=== PATIENT | female | born 2000 | race Caucasian/White ===

== ENCOUNTER → 2021-02-09 08:57 | Outpatient (CLI) | payer SELFPAY | PROVIDERS: Visit Provider Nurse Practitioner Obstetrics & Gynecology | DX: O20.9 Hemorrhage in early pregnancy, unspecified (principal); Z32.00 Encounter for pregnancy test, result unknown | CPT/HCPCS: 36415; 84702 ==

== ENCOUNTER → 2021-02-11 08:09 | Outpatient (CLI) | payer SELFPAY | PROVIDERS: Visit Provider Nurse Practitioner Obstetrics & Gynecology | DX: N92.6 Irregular menstruation, unspecified (principal) | CPT/HCPCS: 36415; 84702 ==

== ENCOUNTER → 2021-02-17 14:04 | Outpatient (CLI) | payer OTHER, SELFPAY ==
--- NOTE | 2021-02-17 14:04 | US_ITS ---
PROCEDURE: US OB <= 14 WEEKS FETUS CLINICAL INDICATION: US OB before 14 wks for DATES COMPARISON: No exams were available for comparison FINDINGS: An intrauterine gestational sac is present with a pole with a crown-rump length of 1.64cm correlating to gestational age of 8weeks 1day. heart tones are present with an FHR of 176bpm. Yolk sac is noted. IMPRESSION: Live IUP at 8 weeks 1 day Estimated due date by Ultrasound is 09/28/2021 Dictated by: Huseyin Penaloza MD 02/17/2021 18:29 Huseyin Penaloza MD in OV 02/17/2021 18:29
== END ==
PROVIDERS: PCP Family Medicine; Visit Provider Nurse Practitioner Obstetrics & Gynecology
DX: O26.841 Uterine size-date discrepancy, first trimester (principal)
CPT/HCPCS: 76801

== ENCOUNTER → 2021-03-10 11:44 | Outpatient (CLI) | payer OTHER, SELFPAY ==
[2021-03-10 12:24] LABS: Basophils % 0.3 % (0.1-2.0); Eosinophils # 0.1 K/mm3 (0.0-0.4); Eosinophils % 0.5 % (0.1-12.0); Hematocrit 35.5 % (37.0-47.0); Hemoglobin 12.1 g/dL (12.2-16.2); Lymphocytes # 2.2 K/mm3 (0.7-4.5); Lymphocytes % 20.4 % (10-50); Mean Corpuscular HGB Conc 34.1 g/dL (31.8-35.4); Mean Corpuscular Hemoglobin 29.6 pg (27.0-31.2); Mean Corpuscular Volume 86.9 fl (81-99); Mean Platelet Volume 8.4 fl (7.4-10.4); Monocytes # 0.3 K/mm3 (0.1-1.0); Neutrophils # 8.1 K/mm3 (1.8-7.8); Neutrophils % 75.8 % (37.0-80.0); Platelet Count 318 K/mm3 (142-424); Red Blood Count 4.08 M/mm3 (4.20-5.40); Red Cell Distribution Width 13.7 % (11.5-17.5); White Blood Count 10.7 K/mm3 (4.8-10.8)
[2021-03-11 08:06] LABS: HIV Screen 4th Generation wRfx Non Reactive (Non Reactive); HSV 1 IgG, Type Spec <0.91 index (0.00-0.90); HSV 2 IgG, Type Spec <0.91 index (0.00-0.90); Rubella Antibodies, IgG 1.96 index (Immune >0.99)
[2021-03-11 10:57] LABS: Rapid Plasma Reagin Ab Titer Non Reactive (NonRea<1:1)
[2021-03-11 11:42] LABS: Hepatitis B Surface Antigen Negative (Negative); Hepatitis C Antibody <0.1 s/co ratio (0.0-0.9)
== END ==
PROVIDERS: Visit Provider Nurse Practitioner Obstetrics & Gynecology
DX: Z34.90 Encounter for supervision of normal pregnancy, unspecified, unspecified trimester (principal)
CPT/HCPCS: 36415; 85025; 86592; 86695; 86703; 86762; 86790; 86850; 87340; 87380; G0432

== ENCOUNTER → 2021-03-26 11:05 | Outpatient (CLI) | payer OTHER, SELFPAY | PROVIDERS: Visit Provider Nurse Practitioner Obstetrics & Gynecology | DX: Z31.430 Encounter of female for testing for genetic disease carrier status for procreative management (principal); Z36.0 Encounter for antenatal screening for chromosomal anomalies; O28.3 Abnormal ultrasonic finding on antenatal screening of mother | CPT/HCPCS: 36415 ==

== ENCOUNTER → 2021-04-30 10:11 | Outpatient (CLI) | payer OTHER, SELFPAY ==
--- NOTE | 2021-04-30 10:11 | US_ITS ---
FINAL REPORT CLINICAL HISTORY: US OB COMPLETE 20 wk+ Anatomy Scan FINDINGS: ULTRASOUND PELVIS/2ND TRIMESTER HISTORY: TECHNIQUE: Sonographic images of the gravid uterus were obtained. FINDINGS: Single intrauterine is present. Cardiac activity is confirmed. No anomalies are seen. Appropriate amount of amniotic fluid is present. Placenta is anterior. Growth parameters are as follows: BPD: 18 weeks 4 days Head circumference: 18 weeks 1 days Abdominal circumference: 18 weeks 3 days Femur length: 19 weeks 3 days heart rate: 147 bpm weight: 255 g Estimated gestational age: 18 weeks 4 days IMPRESSION: Single living intrauterine with estimated gestational age of 18 weeks 4 days. Reviewed, Interpreted and Dictated by Nick Valentin III, MD Transcribed by Flor Brown Authenticated by Nick Valentin III, MD on 04/30/2021 01:12:27 PM [facility]
== END ==
PROVIDERS: PCP Family Medicine; Visit Provider Nurse Practitioner Obstetrics & Gynecology
DX: Z36.0 Encounter for antenatal screening for chromosomal anomalies (principal)
CPT/HCPCS: 76811

== ENCOUNTER 2021-05-12 09:42 | Emergency (ER) | payer OTHER, SELFPAY ==
--- NOTE | 2021-05-12 09:47 | HMH.EDGENADL ---
ED Disposition Clinical Impression: Viral illness Asthmatic bronchitis Qualifiers: Asthma severity: mild Asthma persistence: intermittent Asthma complication type: with acute exacerbation Qualified Code(s): J45.21 - Mild intermittent asthma with (acute) exacerbation Disposition: Home, Self-Care Condition on Discharge: Good Instructions: DI for Acute Bronchitis, DI for Viral Upper Respiratory Infection -- Adult Additional Instructions: follow up pcp as needed Prescriptions: predniSONE [Prednisone 20mg Tab] 60 mg PO DAILY 3 Days #3 tab Transmission Status: Pending to [facility] Albuterol Sulfate [Proair Hfa] 2 puff IH Q4-6H PRN 10 Days #1 each PRN Reason: Wheezing Transmission Status: Pending to [facility] Referrals: Loan Vick [Primary Care Provider] - - Critical Care Critical Care Time: No Attestation: On , the high probability of a clinically significant, sudden or life threatening deterioration of the following system(s) required my full and direct attention, intervention and personal management. The time I documented below is in addition to time spent performing reported procedures but includes the following listed in this critical care notation. Medical Decision Making - Medical Records Medical records reviewed: Yes: I reviewed the patient's medical records. 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, 3 days, neg covid/flu yest, no fever, h/o asthma, 21 wks preg asymptomatic Radiation: non-radiation Severity: mild Consistency: constant Relieving factors: none Exacerbating factors: none Associated symptoms: denies other symptoms - Related Data Home Medications Medication Instructions Recorded Confirmed difluprednate 0.05 % eye drops ml OPHTHALMIC 02/12/21 04/30/21 lifitegrast 5 % eye drops in a 1 drp OPHTHALMIC BID 02/12/21 04/30/21 dropperette prenat.vits,beverly,pmz-mafi-klttb 1 tab PO DAILY 02/12/21 04/30/21 Previous Rx's Medication Instructions Recorded promethazine 12.5 mg tablet 12.5 mg PO Q4-6H PRN #30 tab 04/02/21 Albuterol Sulfate [Proair Hfa] 2 puff IH Q4-6H PRN 10 Days #1 each 05/12/21 predniSONE [Prednisone 20mg 60 mg PO DAILY 3 Days #3 tab 05/12/21 Tab] Allergies Allergy/AdvReac Type Severity Reaction Status Date / Time No Known Allergies Allergy Verified 04/30/21 09:[address] [facility] History - Hepatitis A Screen Attestation statement:: This patient has been screened for Hepatitis A risk factors. Other Medical History: Reports: Cataracts Other Surgeries: Yes: Other Amputation: No Fractures: No Comment: Cornea transplant, cataract surgery - Social History Smoking Status: Never smoker Alcohol Intake: never Alcohol Intake Frequency:: other Substance Use Type: denies use Occupational Status: other Family Hx:: No significant family history ROS Obtained: Yes All systems reviewed & no additional complaints Physical Exam - General General appearance: alert, in no apparent distress - Head Head exam: atraumatic, normocephalic - Eye Eye exam: Present: normal appearance, PERRL, EOMI - ENT ENT exam: Present: normal exam, normal oropharynx, mucous membranes moist - Neck Neck exam: Present: normal inspection, full ROM, trachea midline - Chest Chest inspection: Present: normal inspection, symmetric chest wall rise. Absent: tenderness - Respiratory Respiratory exam: Present: wheezes, other (mild decreased ranjith with faint scattered wheeze, no rhonchi). Absent: respiratory distress, accessory muscle use - Cardiovascular Cardiovascular exam: Present: regular rate, normal rhythm. Absent: bradycardia - Neurologica
[2021-05-12 09:53] VITALS: BP 132/70; PULSE 109; RESP 16; TEMP 37; O2SAT 96; BMI 37.4
[2021-05-12 10:17] VITALS: BP 128/81; PULSE 64; RESP 16; TEMP 37; O2SAT 98
== END 2021-05-12 10:18 | disposition home or self-care (01) ==
PROVIDERS: Emergency Provider Emergency Medicine; PCP Family Medicine
DX: B34.9 Viral infection, unspecified (principal); J45.21 Mild intermittent asthma with (acute) exacerbation; Z3A.21 21 weeks gestation of pregnancy
CPT/HCPCS: 99281

== ENCOUNTER 2021-05-18 18:38 | Outpatient (CLI) | payer OTHER, SELFPAY ==
[2021-05-18 19:23] VITALS: BMI 37.2
[2021-05-18 19:36] LABS: Microscopic, Urine URINE MICROSCOPIC (MICROSCOPIC)
[2021-05-18 19:42] VITALS: BP 132/69; PULSE 85; RESP 19; TEMP 36.6; O2SAT 98; BMI 37.2
[2021-05-18 19:46] LABS: Appearance,Urine SL CLOUDY (Clear); Bilirubin,Urine Negative (Negative); Blood, Urine TRACE-I (Negative); Color,Urine YELLOW (Yellow); Glucose,Urine (UA) Negative (Negative); Ketones,Urine Negative (Negative); Leukocyte Esterase,Urine 1+ (Negative); Nitrate,Urine Negative (Negative); Protein,Urine Negative (Negative); Specific Gravity, Urine 1.015 (1.005-1.030); Urobilinogen,Urine 0.2 EU/dl (0.2)
[2021-05-18 19:56] LABS: Bacteria,Urine 1+ /lpf
[2021-05-18 19:57] LABS: Amphetamine/Metha Screen,Urine Negative ng/ml (<1000)
[2021-05-18 19:58] LABS: Barbiturates Screen,Urine Negative ng/ml (<200)
[2021-05-18 19:59] LABS: Benzodiazepines Screen,Urine Negative ng/ml (<200); Cannabinoid Screen,Urine Negative ng/ml (<50)
[2021-05-18 20:00] LABS: Cocaine Screen,Urine Negative ng/ml (<300)
[2021-05-18 20:00] LABS: Fetal Membrane Rupture (Rapid) Negative (Negative)
[2021-05-18 20:01] LABS: Methadone Screen,Urine Negative ng/ml (<300); Opiate Screen,Urine Negative ng/ml (<300)
[2021-05-18 20:02] LABS: Phencyclidine Screen,Urine Negative ng/ml (<25)
== END 2021-05-18 20:15 | disposition hospice, home (50) ==
LOC: OBOUT 18:40 → OB 18:42
PROVIDERS: PCP Family Medicine; Visit Provider Nurse Practitioner Obstetrics & Gynecology
DX: O26.892 Other specified pregnancy related conditions, second trimester (principal); Z3A.21 21 weeks gestation of pregnancy
CPT/HCPCS: 80305; 81001; 84112; 87086; G0463

== ENCOUNTER → 2021-05-19 13:13 | Outpatient (CLI) | payer OTHER, SELFPAY ==
--- NOTE | 2021-05-19 13:29 | US_ITS ---
FINAL REPORT CLINICAL HISTORY: Spotting in 2nd Trimester, check cervix-- limited recent anatomy FINDINGS: US PREG LIMITED Limited sonographic images of the pelvis were obtained. Single living intrauterine . Cephalic position. Heart rate identified at 158 beats per minute. The placenta is anterior. There is normal amniotic fluid. There is no evidence of placenta previa. The fetus is active. Visualized anatomy is within normal limits. IMPRESSION: Single living intrauterine . Reviewed, Interpreted and Dictated by Nick Valentin III, MD Transcribed by Darline Schwab Authenticated by Nick Valentin III, MD on 05/19/2021 04:59:13 PM [facility]
--- NOTE | 2021-05-19 13:29 | US_ITS ---
FINAL REPORT CLINICAL HISTORY: Spotting in 2nd Trimester, check cervix FINDINGS: US TRANSVAGINAL Limited transvaginal sonographic images of the pelvis were obtained. The cervix measures 3.5 cm in length and appears normal. There is a intrauterine with a cephalic presentation. IMPRESSION: Normal cervix. Reviewed, Interpreted and Dictated by Nick Valentin III, MD Transcribed by Darline Schwab Authenticated by Nick Valentin III, MD on 05/19/2021 03:46:13 PM [facility]
== END ==
PROVIDERS: PCP Family Medicine; Visit Provider Nurse Practitioner Obstetrics & Gynecology
DX: O26.852 Spotting complicating pregnancy, second trimester (principal); Z03.75 Encounter for suspected cervical shortening ruled out
CPT/HCPCS: 76815; 76817

== ENCOUNTER → 2021-06-20 08:42 | Outpatient (CLI) | payer OTHER, SELFPAY ==
[2021-06-20 09:11] LABS: Glucose,Fasting 82 mg/dl (74-100)
[2021-06-20 10:32] LABS: Glucose 1 Hour 104 mg/dL (74-100)
== END ==
PROVIDERS: PCP Family Medicine; Visit Provider Nurse Practitioner Obstetrics & Gynecology
DX: Z34.90 Encounter for supervision of normal pregnancy, unspecified, unspecified trimester (principal); Z3A.22 22 weeks gestation of pregnancy
CPT/HCPCS: 36415; 82951

== ENCOUNTER 2021-06-26 11:21 | Outpatient (CLI) | payer OTHER, SELFPAY ==
[2021-06-26 11:31] VITALS: BMI 38.1
[2021-06-26 11:36] VITALS: BP 106/58; PULSE 85; RESP 18; TEMP 37; O2SAT 98
[2021-06-26 11:44] VITALS: BP 106/58; PULSE 85; RESP 18; TEMP 37; O2SAT 98; BMI 38.1
[2021-06-26 11:52] LABS: Microscopic, Urine URINE MICROSCOPIC (MICROSCOPIC)
[2021-06-26 11:57] LABS: Appearance,Urine CLEAR (Clear); Bilirubin,Urine Negative (Negative); Blood, Urine Negative (Negative); Color,Urine YELLOW (Yellow); Glucose,Urine (UA) Negative (Negative); Ketones,Urine Negative (Negative); Leukocyte Esterase,Urine 1+ (Negative); Nitrate,Urine Negative (Negative); Protein,Urine Negative (Negative); Urobilinogen,Urine 0.2 EU/dl (0.2)
[2021-06-26 12:15] LABS: Amphetamine/Metha Screen,Urine Negative ng/ml (<1000); Benzodiazepines Screen,Urine Negative ng/ml (<200)
[2021-06-26 12:16] LABS: Barbiturates Screen,Urine Negative ng/ml (<200)
[2021-06-26 12:17] LABS: Cannabinoid Screen,Urine Negative ng/ml (<50); Cocaine Screen,Urine Negative ng/ml (<300)
[2021-06-26 12:18] LABS: Methadone Screen,Urine Negative ng/ml (<300); Opiate Screen,Urine Negative ng/ml (<300)
[2021-06-26 12:19] LABS: Phencyclidine Screen,Urine Negative ng/ml (<25)
[2021-06-26 12:31] LABS: Amorphous Sediment,Urine 1+ /lpf; Squamous Epithelial Cell,Urine Occasional #/hpf (0-5)
== END 2021-06-26 12:21 | disposition home or self-care (01) ==
LOC: OBOUT 11:23 → OB 11:23
PROVIDERS: PCP Family Medicine; Visit Provider Obstetrics & Gynecology
DX: O26.892 Other specified pregnancy related conditions, second trimester (principal); Z3A.26 26 weeks gestation of pregnancy; R10.31 Right lower quadrant pain
CPT/HCPCS: 59025; 80305; 81001; 87086; G0463

== ENCOUNTER 2021-07-26 21:42 | Outpatient (CLI) | payer OTHER, SELFPAY ==
[2021-07-26 21:57] VITALS: BMI 39.3
[2021-07-26 22:10] LABS: Microscopic, Urine URINE MICROSCOPIC (MICROSCOPIC)
[2021-07-26 22:12] LABS: Appearance,Urine CLOUDY (Clear); Bilirubin,Urine Negative (Negative); Blood, Urine 1+ (Negative); Color,Urine YELLOW (Yellow); Glucose,Urine (UA) Negative (Negative); Ketones,Urine Negative (Negative); Leukocyte Esterase,Urine 1+ (Negative); Nitrate,Urine Negative (Negative); Protein,Urine Negative (Negative); Urobilinogen,Urine 0.2 EU/dl (0.2)
[2021-07-26 22:15] LABS: Amorphous Sediment,Urine 3+ /lpf; Mucus,Urine 1+ /lpf; Squamous Epithelial Cell,Urine 20-50 #/hpf (0-5)
[2021-07-26 22:23] LABS: Barbiturates Screen,Urine Negative ng/ml (<200); Benzodiazepines Screen,Urine Negative ng/ml (<200)
[2021-07-26 22:24] LABS: Amphetamine/Metha Screen,Urine Negative ng/ml (<1000)
[2021-07-26 22:25] LABS: Cannabinoid Screen,Urine Negative ng/ml (<50); Cocaine Screen,Urine Negative ng/ml (<300)
[2021-07-26 22:26] LABS: Methadone Screen,Urine Negative ng/ml (<300)
[2021-07-26 22:27] LABS: Opiate Screen,Urine Negative ng/ml (<300); Phencyclidine Screen,Urine Negative ng/ml (<25)
[2021-07-26 23:23] VITALS: BP 98/54; PULSE 90; RESP 18; TEMP 36.8; O2SAT 97; BMI 39.2
== END 2021-07-27 00:25 | disposition home or self-care (01) ==
LOC: OBOUT 21:43 → OB 21:43
PROVIDERS: PCP Family Medicine; Visit Provider Obstetrics & Gynecology
DX: O47.03 False labor before 37 completed weeks of gestation, third trimester (principal); Z3A.30 30 weeks gestation of pregnancy
CPT/HCPCS: 59025; 80305; 81001; 87086; 96365; 96372; G0463

== ENCOUNTER 2021-07-28 17:17 | Outpatient (CLI) | payer OTHER, SELFPAY ==
[2021-07-28 17:58] VITALS: BP 129/79; PULSE 91; RESP 20; TEMP 36.9; O2SAT 100; BMI 38.9
[2021-07-28 18:13] LABS: Microscopic, Urine URINE MICROSCOPIC (MICROSCOPIC)
[2021-07-28 18:30] LABS: Appearance,Urine CLEAR (Clear); Bilirubin,Urine Negative (Negative); Blood, Urine 2+ (Negative); Color,Urine YELLOW (Yellow); Glucose,Urine (UA) Negative (Negative); Ketones,Urine TRACE (Negative); Leukocyte Esterase,Urine 1+ (Negative); Nitrate,Urine Negative (Negative); PH,Urine 6.5 (5.0-8.5); Protein,Urine TRACE (Negative); Specific Gravity, Urine 1.025 (1.005-1.030); Urobilinogen,Urine 0.2 EU/dl (0.2)
[2021-07-28 18:31] LABS: Bacteria,Urine Trace /lpf
[2021-07-28 19:14] LABS: Fetal Fibronectin (Rapid) Negative (Negative)
[2021-07-28 21:09] LABS: Amphetamine/Metha Screen,Urine Negative ng/ml (<1000)
[2021-07-28 21:10] LABS: Barbiturates Screen,Urine Negative ng/ml (<200); Benzodiazepines Screen,Urine Negative ng/ml (<200)
[2021-07-28 21:11] LABS: Cannabinoid Screen,Urine Negative ng/ml (<50)
[2021-07-28 21:12] LABS: Cocaine Screen,Urine Negative ng/ml (<300); Methadone Screen,Urine Negative ng/ml (<300)
[2021-07-28 21:13] LABS: Opiate Screen,Urine Negative ng/ml (<300)
[2021-07-28 21:14] LABS: Phencyclidine Screen,Urine Negative ng/ml (<25)
== END 2021-07-28 20:21 | disposition home or self-care (01) ==
LOC: OBOUT 17:20 → OB 17:24
PROVIDERS: PCP Nurse Practitioner Obstetrics & Gynecology; Visit Provider Nurse Practitioner Obstetrics & Gynecology
DX: O47.03 False labor before 37 completed weeks of gestation, third trimester (principal); Z3A.31 31 weeks gestation of pregnancy
CPT/HCPCS: 59025; 80305; 81001; 82731; 87086; 96365; 96372; G0463

== ENCOUNTER 2021-07-29 11:55 | Outpatient (CLI) | payer OTHER, SELFPAY ==
[2021-07-29 12:05] VITALS: BMI 41.5
[2021-07-29 12:27] VITALS: BP 120/68; PULSE 99; RESP 20; TEMP 37.1; O2SAT 95; BMI 38.9
[2021-07-29 12:47] LABS: Benzodiazepines Screen,Urine Negative ng/ml (<200)
[2021-07-29 12:48] LABS: Amphetamine/Metha Screen,Urine Negative ng/ml (<1000); Barbiturates Screen,Urine Negative ng/ml (<200)
[2021-07-29 12:49] LABS: Cannabinoid Screen,Urine Negative ng/ml (<50)
[2021-07-29 12:50] LABS: Cocaine Screen,Urine Negative ng/ml (<300); Methadone Screen,Urine Negative ng/ml (<300)
[2021-07-29 12:51] LABS: Opiate Screen,Urine Negative ng/ml (<300)
[2021-07-29 12:52] LABS: Phencyclidine Screen,Urine Negative ng/ml (<25)
== END 2021-07-29 15:10 | disposition home or self-care (01) ==
LOC: OBOUT 11:57 → OB 11:59
PROVIDERS: PCP Family Medicine; Visit Provider Nurse Practitioner Obstetrics & Gynecology
DX: O47.03 False labor before 37 completed weeks of gestation, third trimester (principal); Z3A.31 31 weeks gestation of pregnancy
CPT/HCPCS: 59025; 80305; 96365; 96372; G0463

== ENCOUNTER 2021-08-02 23:56 | Observation (INO) | payer OTHER, SELFPAY ==
[2021-08-02 21:49] VITALS: BMI 45.7
[2021-08-02 22:05] VITALS: BP 120/65; PULSE 87; RESP 18; TEMP 37.1; O2SAT 98; BMI 38.9
[2021-08-02 22:32] LABS: Microscopic, Urine URINE MICROSCOPIC (MICROSCOPIC)
[2021-08-02 22:44] LABS: Appearance,Urine SL CLOUDY (Clear); Bilirubin,Urine Negative (Negative); Blood, Urine 1+ (Negative); Color,Urine YELLOW (Yellow); Glucose,Urine (UA) Negative (Negative); Ketones,Urine Negative (Negative); Leukocyte Esterase,Urine 2+ (Negative); Nitrate,Urine Negative (Negative); Protein,Urine Negative (Negative); Urobilinogen,Urine 0.2 EU/dl (0.2)
[2021-08-02 22:48] LABS: Amorphous Sediment,Urine 1+ /lpf; WBC,Urine 20-50 #/hpf (0-3)
[2021-08-02 22:54] LABS: Barbiturates Screen,Urine Negative ng/ml (<200)
[2021-08-02 22:55] LABS: Amphetamine/Metha Screen,Urine Negative ng/ml (<1000); Benzodiazepines Screen,Urine Negative ng/ml (<200)
[2021-08-02 22:56] LABS: Cannabinoid Screen,Urine Negative ng/ml (<50)
[2021-08-02 22:57] LABS: Cocaine Screen,Urine Negative ng/ml (<300); Methadone Screen,Urine Negative ng/ml (<300)
[2021-08-02 22:58] LABS: Opiate Screen,Urine Negative ng/ml (<300)
[2021-08-02 22:59] LABS: Phencyclidine Screen,Urine Negative ng/ml (<25)
[2021-08-03 01:06] LABS: Coronavirus 19, PCR Not Detected (NotDetected); Influenza A, PCR Not Detected (NotDetected); Influenza B, PCR Not Detected (NotDetected)
[2021-08-03 01:18] LABS: Basophils # 0.3 K/mm3 (0-0.2); Basophils % 1.9 % (0.1-2.0); Eosinophils # 0.1 K/mm3 (0.0-0.4); Eosinophils % 0.8 % (0.1-12.0); Lymphocytes # 3.4 K/mm3 (0.7-4.5); Lymphocytes % 20.5 % (10-50); Mean Corpuscular HGB Conc 33.5 g/dL (31.8-35.4); Mean Corpuscular Hemoglobin 29.7 pg (27.0-31.2); Mean Corpuscular Volume 88.6 fl (81-99); Mean Platelet Volume 9.6 fl (7.4-10.4); Monocytes # 0.8 K/mm3 (0.1-1.0); Monocytes % 4.8 % (1.7-9.3); Neutrophils # 11.8 K/mm3 (1.8-7.8); Neutrophils % 71.9 % (37.0-80.0); Platelet Count 278 K/mm3 (142-424); Red Blood Count 3.38 M/mm3 (4.20-5.40); Red Cell Distribution Width 14.2 % (11.5-17.5); White Blood Count 16.4 K/mm3 (4.8-10.8)
[2021-08-03 01:20] LABS: Anion Gap 10.6 mEq/L (5-15); Blood Urea Nitrogen 11 mg/dl (7-17); Calcium 8.4 mg/dl (8.4-10.2); Carbon Dioxide 22 mmol/L (22.0-30.0); Chloride 106 mmol/L (98-107); Creatinine Clearance Estimated 325 mL/min (50-200); Estimated Glomerular Filt Rate 200 ml/min (>60); GFR (African American) 242 ML/MIN (>60); Glucose 96 mg/dl (74-100); Potassium 3.6 mmoL/L (3.5-5.1); Sodium 135 mmol/L (136-145)
[2021-08-03 01:21] LABS: MANUAL DIFFERENTIAL MANUAL DIFFERENTIAL (MANUAL DIFF)
[2021-08-03 01:42] LABS: Lymphocytes % 10 % (10-50); Monocytes % 2 % (2-9); Neutrophils % 84 % (42-76); Platelet Estimate Normal; RBC Morphology Normal; Rouleaux 2+; Total Cells Counted 100
[2021-08-03 03:23] VITALS: RESP 18
--- NOTE | 2021-08-03 07:00 | US_ITS ---
FINAL REPORT TECHNIQUE: Ultrasound images of the kidneys and bladder were obtained. CLINICAL HISTORY: LOW BACK PAIN, POSSIBLE STONES FINDINGS: The right kidney measures 11.1 cm in length. It is normal in echogenicity. There is no hydronephrosis. The left kidney measures 10.5 cm in length. It is normal in echogenicity. There is no hydronephrosis. The spleen is unremarkable. IMPRESSION: No hydronephrosis. Reviewed, Interpreted and Dictated by Nick Valentin III, MD Transcribed by Darline Schwab Authenticated by Nick Valentin III, MD on 08/03/2021 01:33:[address] [facility]
--- NOTE | 2021-08-03 09:40 | HMH.OBAPHP ---
OB - H&P: HPI Antepartum - History of Present Illness Chief complaint: Renal colic, false labor History of present illness: She is a 20-year-old 1 para 0 at 32 weeks gestational age. She has had kidney stones early on in the and in the last few days has passed about 4 kidney stones. She complains of severe back pain and she has not been able to sleep for the last few days. She also complains of some irregular contractions. She complains of decreased urine output. As result of this we are admitting her for pain relief as well as work-up for her kidney stones. [facility] History I have reviewed the patient's past medical history: Yes *Have you ever received a pneumonia vaccine?: No *Have you received a flu vaccine this season?: Yes Other Medical History: Reports: Cataracts Other Surgeries: Yes: Other. No: Amputation: No Fractures: No - *Social History Smoking Status: Never smoker Alcohol Intake: never Alcohol Intake Frequency:: other Substance Use Type: denies use *Occupational Status:: other *Travel in the last 8 weeks: None Family Hx:: No significant family history Para: 0 Review of Systems - Review of Systems Review of systems:: pertinent systems reviewed and negative unless documented below Meds Home Medications Medication Instructions Recorded Confirmed Type difluprednate 0.05 % eye drops 1 ml OPHTHALMIC BID 02/12/21 08/03/21 History lifitegrast 5 % eye drops in a 1 drp OPHTHALMIC BID 02/12/21 08/03/21 History dropperette prenat.vits,beverly,sdj-qeuu-kvkgo 1 tab PO DAILY 02/12/21 08/03/21 History RX: Ferrous Sulfate 325 mg PO DAILY 08/03/21 08/03/21 History RX: NIFEdipine [NIFEdipine 10mg 10 mg PO BID 08/03/21 08/03/21 History Capsule] RX: Nitrofurantoin Monohyd/M-Cryst 100 mg PO BID 08/03/21 08/03/21 History [Nitrofurantoin [place]-Mcr 100 mg] Allergies Allergy/AdvReac Type Severity Reaction Status Date / Time Penicillins Allergy Verified 08/03/21 00:19 OB - H&P: Exam - Physical Exam Vital signs: Temp Pulse Resp BP Pulse Ox 98.7 F 87 18 120/65 98 08/02/21 22:05 08/02/21 22:05 08/03/21 03:23 08/02/21 22:05 08/02/21 22:05 - Constitutional no acute distress - Routine HEENT Exam Head: Present: normocephalic Eye: Present: EOMI, PERRL ENT: Present: mucous membranes moist - Routine Neck Exam Present: supple, full ROM - Routine Respiratory Exam Absent: accessory muscle use (good air entry bilaterally), respiratory distress, wheezes, crackles - Routine Cardiovascular Exam Present: RRR. Absent: murmur - Routine Abdominal Exam Present: soft, normoactive bowel sounds. Absent: tenderness, distended, guarding - Routine Rectal Exam Patient deferred: visual exam, digital exam - Routine Exam Patient deferred: external exam, groin exam, perineal exam - Routine Extremities Exam Present: full ROM. Absent: cyanosis, edema - Routine Skin Exam Present: intact. Absent: cyanosis - Routine Neurological Exam Present: alert, oriented X3 - Routine Psychiatric Exam Present: normal affect OB - Results - Labs Labs: Short CBC 08/03/21 Range/Units 00:55 WBC 16.4 H (4.8-10.8) K/mm3 Hgb 10.0 L (12.2-16.2) g/dL Hct 30.0 L (37.0-47.0) % Plt Count 278 (142-424) K/mm3 BMP 08/03/21 00:55 Sodium 135 L Potassium 3.6 Chloride 106 Carbon Dioxide 22 BUN 11 Creatinine 0.40 L Glucose 96 Calcium 8.4 Urine 08/02/21 Range/Units 21:40 Urine Color Yellow (Yellow) Urine Appearance Sl cloudy (Clear) Urine pH 7.0 (5.0-8.5) Ur Specific [place] 1.010 (1.005-1.030) Urine Protein Negative (Negative) Urine Glucose (UA) Negative (Negative) OB - A/P Antepartum (1) Renal colic Status: Acute (2) False labor before 37 completed weeks of gestation, third trimester Status: Acute - Additional Plan Planning to breastfeed?: Yes Plan: other Additional Information::
--- NOTE | 2021-08-03 11:01 | HMH.PHAVTE ---
[facility] Pharm[facility] VTE Monitoring - Patient Demographics Admission date: 08/03/21 Report Date: 08/03/21 Time: 11:01 Allergies/Adverse Reactions: Patient Allergies Penicillins Allergy (Verified 08/03/21 00:19) Height: 1.55 m Weight: 93.44 kg Patient Problems: Current Active Problems Renal colic (Acute) False labor before 37 completed weeks of gestation, third trimester (Acute) - VTE Risk Labs: VTE Related Lab Results Hgb 10.0 g/dL (12.2-16.2) L 08/03/21 00:55 Hct 30.0 % (37.0-47.0) L 08/03/21 00:55 Plt Count 278 K/mm3 (142-424) 08/03/21 00:55 BUN 11 mg/dl (7-17) 08/03/21 00:55 Creatinine 0.40 mg/dl (0.52-1.04) L 08/03/21 00:55 Estimated Creat Clear 325 mL/min (50-200) H 08/03/21 00:55 - Prophylaxis VTE Prophylaxis Ordered?: Yes Types of VTE Prophylaxis: TEDS Knee High Location of Applied Device: Bilateral Lower Extremeties
--- NOTE | 2021-08-03 12:51 | HMH.PHAINT ---
MEDICATION RECONCILIATION COMPLETED ON PATIENT USING EXTERNAL FILL HISTORY FROM PHARMACY. -ABDULLAHI ALVARADO, BRANDID
--- NOTE | 2021-08-04 00:43 | PC.NURSE ---
ALL URINE STRAINED UP TO THIS TIME HAS BEEN FREE OF STONES OR SEDIMENT
--- NOTE | 2021-08-04 02:20 | PC.NURSE ---
SMALL AMOUNT OF SEDIMENT NOTED WITH LAST URINE OUTPUT OF 400ML. NO STONES STRAINED
--- NOTE | 2021-08-04 08:17 | HMH.ACPN2 ---
Internal Medicine - PN: Subj *Date: 08/04/21 *Time: 08:17 Interval history: She continues to have low back pain. She says that the pain comes in spasms at times and it is worse on the right side. It radiates down into her groin. We did a urinalysis that showed amorphus sediment, blood and white blood cells. I suspect that she has continued to have kidney stones. She may also have some pressure on the right ureter from her uterus. I have encouraged her to start leaning towards the left side and sleeping on her left side. We will plan to repeat her urinalysis today as well as a CBC and a Chem-7. She will be started on Invanz 1 g every 24. I have made arrangements for her to have a consult with Dr. Shelton. She has been receiving IV Dilaudid for her pain. She has been trying to not take too much of the pain medicine. We will plan to keep her for the next 24 hours at least. Exam Vital signs and Labs for Last 24 Hours: Temp Pulse Resp BP Pulse Ox 98.7 F 87 18 120/65 98 08/02/21 22:05 08/02/21 22:05 08/03/21 03:23 08/02/21 22:05 08/02/21 22:05 I & O for Last 24 hours: Intake & Output 08/01/21 08/02/21 08/03/21 08/04/21 11:59 11:59 11:59 11:59 Output Total 900 / 900 Balance -900 / -900 Weight 206 lb Microbiology Reports for the Last 24 Hours: Microbiology 08/02/21 21:40 Urine,Clean Catch Urine Culture - Preliminary NO GROWTH AFTER 24 HOURS - Constitutional no acute distress - *Routine HEENT Exam Head: Present: normocephalic Eye: Present: EOMI, PERRL ENT: Present: mucous membranes moist Assessment and Plan (1) Renal colic Status: Acute Category: Medical Code(s): N23 - Unspecified renal colic (2) False labor before 37 completed weeks of gestation, third trimester Status: Acute Category: Medical Code(s): O47.03 - False labor before 37 completed weeks of gestation, third trimester - Assessment and plan all Dx Assessment and Plan for all problems:: We will repeat her blood work today as well as a urinalysis. I started her on Invanz for her possible early UTI. We will have Dr. Shelton take a look at her today as well. We will keep her as an inpatient for now.
--- NOTE | 2021-08-04 09:16 | XR_ITS ---
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 An intrauterine is present. No definite renal stone is identified. 5 minute and 15 minute radiographs of the abdomen and pelvis were then obtained after the intravenous injection of 50 mL of Isovue-370. There is mild right hydronephrosis and hydroureter. The left collecting system and ureter are opacified and appear normal. The bladder is partially filled. There is no convincing evidence of ureteral obstruction. IMPRESSION: Mild right hydronephrosis and hydroureter. No convincing evidence of ureteral obstruction, renal or ureteral stone. Authenticated by Nick Valentin III, MD on 08/04/2021 12:39:37 PM [facility]
[2021-08-04 09:32] LABS: Basophils # 0.1 K/mm3 (0-0.2); Basophils % 0.7 % (0.1-2.0); Eosinophils # 0.1 K/mm3 (0.0-0.4); Eosinophils % 0.8 % (0.1-12.0); Hematocrit 28.9 % (37.0-47.0); Hemoglobin 9.7 g/dL (12.2-16.2); Lymphocytes # 2.8 K/mm3 (0.7-4.5); Lymphocytes % 22.2 % (10-50); Mean Corpuscular HGB Conc 33.6 g/dL (31.8-35.4); Mean Corpuscular Hemoglobin 29.9 pg (27.0-31.2); Mean Corpuscular Volume 89.2 fl (81-99); Mean Platelet Volume 9.5 fl (7.4-10.4); Monocytes # 0.5 K/mm3 (0.1-1.0); Monocytes % 3.6 % (1.7-9.3); Neutrophils # 9.1 K/mm3 (1.8-7.8); Neutrophils % 72.6 % (37.0-80.0); Platelet Count 261 K/mm3 (142-424); Red Blood Count 3.24 M/mm3 (4.20-5.40); Red Cell Distribution Width 14.2 % (11.5-17.5); White Blood Count 12.5 K/mm3 (4.8-10.8)
[2021-08-04 09:49] LABS: Chloride 103 mmol/L (98-107); Potassium 3.4 mmoL/L (3.5-5.1); Sodium 133 mmol/L (136-145)
[2021-08-04 09:52] LABS: Anion Gap 9.4 mEq/L (5-15); Blood Urea Nitrogen 8 mg/dl (7-17); Carbon Dioxide 24 mmol/L (22.0-30.0); Creatinine Clearance Estimated 260 mL/min (50-200); Estimated Glomerular Filt Rate 154 ml/min (>60); GFR (African American) 187 ML/MIN (>60); Glucose 97 mg/dl (74-100)
[2021-08-04 10:58] LABS: Microscopic, Urine URINE MICROSCOPIC (MICROSCOPIC)
[2021-08-04 10:59] LABS: Appearance,Urine CLEAR (Clear); Bilirubin,Urine Negative (Negative); Blood, Urine TRACE-L (Negative); Color,Urine YELLOW (Yellow); Glucose,Urine (UA) Negative (Negative); Ketones,Urine Negative (Negative); Leukocyte Esterase,Urine TRACE (Negative); Nitrate,Urine Negative (Negative); Protein,Urine Negative (Negative); Specific Gravity, Urine 1.015 (1.005-1.030); Urobilinogen,Urine 0.2 EU/dl (0.2)
--- NOTE | 2021-08-04 15:44 | HMH.CONS ---
*Admission Date: 08/03/21 *Reason for consult:: Right flank pain *History of present illness: Patient is referred from Dr. Gee for 1 week history of right-sided flank pain. Patient is 33 weeks with her first child. States associated nausea. She is requiring frequent pain meds. She states her pain comes in waves. No ultrasound shows no evidence of hydronephrosis. Creatinine is 0.4. [facility] History *Have you ever received a pneumonia vaccine?: No *Have you received a flu vaccine this season?: Yes Other Medical History: Reports: Cataracts Other Surgeries: Yes: Other. No: Amputation: No Fractures: No - *Social History Smoking Status: Never smoker Alcohol Intake: never Alcohol Intake Frequency:: other Substance Use Type: denies use *Occupational Status:: other *Travel in the last 8 weeks: None Family Hx:: No significant family history Para: 0 Review of Systems - Review of Systems Review of systems:: pertinent systems reviewed and negative unless documented below Meds Home Medications Medication Instructions Recorded Confirmed Type difluprednate 0.05 % eye drops 1 ml OP BID 02/12/21 08/03/21 History lifitegrast 5 % eye drops in a 1 drp OP BID 02/12/21 08/03/21 History dropperette prenat.vits,beverly,bpl-opgh-loabz 1 tab PO DAILY 02/12/21 08/03/21 History Ferrous Sulfate 325 mg PO DAILY 08/03/21 08/03/21 History NIFEdipine [NIFEdipine 10mg 10 mg PO TID 08/03/21 08/03/21 History Capsule] Nitrofurantoin Monohyd/M-Cryst 100 mg PO BID 08/03/21 08/03/21 History [Nitrofurantoin [place]-Mcr 100 mg] Allergies Allergy/AdvReac Type Severity Reaction Status Date / Time Penicillins Allergy Verified 08/03/21 00:19 Exam Vital signs and Labs for Last 24 Hours: Temp Pulse Resp BP Pulse Ox 98.7 F 87 18 120/65 98 08/02/21 22:05 08/02/21 22:05 08/03/21 03:23 08/02/21 22:05 08/02/21 22:05 Laboratory Results - last 24 hr 08/04/21 09:20: WBC 12.5 H, RBC 3.24 L, Hgb 9.7 L, Hct 28.9 L, MCV 89.2, MCH 29.9, MCHC 33.6, RDW 14.2, Plt Count 261, MPV 9.5, Neut % (Auto) 72.6, Lymph % (Auto) 22.2, [place] % (Auto) 3.6, Eos % (Auto) 0.8, Baso % (Auto) 0.7, Neut # (Auto) 9.1 H, Lymph # (Auto) 2.8, [place] # (Auto) 0.5, Eos # (Auto) 0.1, Baso # (Auto) 0.1 08/04/21 09:20: Sodium 133 L, Potassium 3.4 L, Chloride 103, Carbon Dioxide 24, Anion Gap 9.4, BUN 8 D, Creatinine 0.50 L D, Estimated Creat Clear 260, Estimated GFR 154, Est GFR ( Amer) 187 D, Glucose 97, Calcium 8.0 L 08/04/21 10:17: Urine Color Yellow, Urine Appearance Clear, Urine pH 7.0, Ur Specific [place] 1.015, Urine Protein Negative, Urine Glucose (UA) Negative, Urine Ketones Negative, Urine Blood Trace-l, Urine Nitrate Negative, Urine Bilirubin Negative, Urine Urobilinogen 0.2, Ur Leukocyte Esterase Trace, Urine RBC 3-5, Urine WBC 3-5, Ur Squamous Epith Cells 3-5, Urine Bacteria None I & O for Last 24 hours: Intake & Output 08/01/21 08/02/21 08/03/21 08/04/21 23:59 23:59 23:59 23:59 Output Total 500 / 500 400 / 400 Balance -500 / -500 -400 / -400 Weight 93.44 kg Microbiology Reports for the Last 24 Hours: Microbiology 08/02/21 21:40 Urine,Clean Catch Urine Culture - Preliminary - Constitutional no acute distress - *Routine HEENT Exam Head: Present: normocephalic Eye: Present: EOMI, PERRL ENT: Present: mucous membranes moist - *Routine Neck Exam Present: supple. Absent: lymphadenopathy - *Routine Respiratory Exam Absent: accessory muscle use - *Routine Cardiovascular Exam Absent: JVD - *Routine Abdominal Exam Present: soft. Absent: tenderness Comments: Gravid uterus - *Routine Extremities Exam Absent: cyanosis, clubbing, edema - *Routine Skin Exam Present: warm. Absent: rash - *Routine Neurological Exam Present: alert, oriented X3 Internal Medicine - CN: Reslt - Labs CBC & Chem 7: 08/04/21 09:20 08/04/21 09:20 Labs: Short CBC 08/04/21 Range/Units 09:20 WBC
--- NOTE | 2021-08-04 22:50 | PC.NURSE ---
Patient called out at this time stating that she had passed a stone and felt a big relief after voiding. On visualization, there was a small amount of sediment present in the strainer, but no stone. Patient reports feeling much better at this time.
--- NOTE | 2021-08-05 09:28 | HMH.DCSUM ---
General - General Admission date:: 08/02/21 Discharge date: 08/05/21 HPI HPI: She had severe renal colic and was admitted and observed for the last 48 hours. Hospital Course Hospital Course: She was observed for the last 48 hours. Initially she received pain medicine and this has now settled. She said that she had passed about 4 kidney stones at home before coming into the hospital. She had an IVP that showed no obstruction. She had some slight dilation of the ureter on the right side. The renal ultrasound was also negative. She was seen by Dr. Shelton in consultation and he agreed that she did not have any obstructive stones at this point in time. She has subsequently gotten better over the last 24 hours. She will be discharged home to follow-up with me in approximately 1 week time. She will continue with her vitamins and iron. She will continue with her nifedipine to prevent labor. She was given a prescription for Percocet 5/325 number 12 tablets to take if she has any severe episodes of pain. She will go home and rest as much as possible at home. Her condition on discharge is stable and improved. Objective Vital signs: Temp Pulse Resp BP Pulse Ox 98.7 F 87 18 120/65 98 08/02/21 22:05 08/02/21 22:05 08/03/21 03:23 08/02/21 22:05 08/02/21 22:05 no acute distress Results Labs on day of discharge: Labs from last 24 hours 08/04/21 08/04/21 08/04/21 10:17 09:20 09:20 WBC 12.5 H RBC 3.24 L Hgb 9.7 L Hct 28.9 L MCV 89.2 MCH 29.9 MCHC 33.6 RDW 14.2 Plt Count 261 MPV 9.5 Neut % (Auto) 72.6 Lymph % (Auto) 22.2 [place] % (Auto) 3.6 Eos % (Auto) 0.8 Baso % (Auto) 0.7 Neut # (Auto) 9.1 H Lymph # (Auto) 2.8 [place] # (Auto) 0.5 Eos # (Auto) 0.1 Baso # (Auto) 0.1 Sodium 133 L Potassium 3.4 L Chloride 103 Carbon Dioxide 24 Anion Gap 9.4 BUN 8 D Creatinine 0.50 L D Estimated Creat Clear 260 Estimated GFR 154 Est GFR ( Amer) 187 D Glucose 97 Calcium 8.0 L Urine Color Yellow Urine Appearance Clear Urine pH 7.0 Ur Specific [place] 1.015 Urine Protein Negative Urine Glucose (UA) Negative Urine Ketones Negative Urine Blood Trace-l Urine Nitrate Negative Urine Bilirubin Negative Urine Urobilinogen 0.2 Ur Leukocyte Esterase Trace Urine RBC 3-5 Urine WBC 3-5 Ur Squamous Epith Cells 3-5 Urine Bacteria None DS: Diagnosis - Discharge Diagnosis (1) Renal colic Status: Acute (2) False labor before 37 completed weeks of gestation, third trimester Status: Acute Discharge Plan - Patient Discharge Instructions ACTIVITY: Limited activity DIET: continue same diet - Follow up Plan Disposition: Home, Self-Care Condition at discharge:: Stable Home Medications: Home Medications Medication Instructions Recorded Confirmed Type difluprednate 0.05 % eye drops 1 ml OP BID 02/12/21 08/03/21 History lifitegrast 5 % eye drops in a 1 drp OP BID 02/12/21 08/03/21 History dropperette prenat.vits,beverly,vpi-vvll-fmbxs 1 tab PO DAILY 02/12/21 08/03/21 History Ferrous Sulfate 325 mg PO DAILY 08/03/21 08/03/21 History NIFEdipine [NIFEdipine 10mg 10 mg PO TID 08/03/21 08/03/21 History Capsule] Nitrofurantoin Monohyd/M-Cryst 100 mg PO BID 08/03/21 08/03/21 History [Nitrofurantoin [place]-Mcr 100 mg] Oxycodone HCl/Acetaminophen 1 each PO Q4HP PRN #12 tab 08/05/21 Rx [Percocet 5/325mg tablet] Prescriptions/Medication Reconciliation: New Oxycodone HCl/Acetaminophen [Percocet 5/325mg tablet] 1 each PO Q4HP PRN #12 tab PRN Reason: Moderate To Severe Pain Continued difluprednate 0.05 % eye drops 1 ml OP BID lifitegrast 5 % eye drops in a dropperette 1 drp OP BID prenat.vits,beverly,wjv-supw-qhxhl 1 tab PO DAILY Nitrofurantoin Monohyd/M-Cryst [Nitrofurantoin [place]-Mcr 100
== END 2021-08-05 10:35 | disposition home or self-care (01) ==
LOC: OBOUT 23:57 → OB 23:57
PROVIDERS: Admitting Provider Nurse Practitioner Obstetrics & Gynecology; PCP Nurse Practitioner Obstetrics & Gynecology; Visit Provider Nurse Practitioner Obstetrics & Gynecology
DX: N20.2 Calculus of kidney with calculus of ureter (principal); O26.833 Pregnancy related renal disease, third trimester; Z3A.32 32 weeks gestation of pregnancy; Z20.822 Contact with and (suspected) exposure to COVID-19
CPT/HCPCS: 36415; 59025; 74400; 76770; 80048; 80305; 81001; 85007; 85025; 87086; C9803; G0378; J1335; J2405; Q9967; U0003; U0005

== ENCOUNTER 2021-08-10 10:50 | Outpatient (CLI) | payer OTHER, SELFPAY ==
[2021-08-10 11:13] VITALS: BMI 38.9
[2021-08-10 11:23] LABS: Microscopic, Urine URINE MICROSCOPIC (MICROSCOPIC)
[2021-08-10 11:24] LABS: Appearance,Urine CLEAR (Clear); Bilirubin,Urine Negative (Negative); Blood, Urine TRACE-I (Negative); Color,Urine YELLOW (Yellow); Glucose,Urine (UA) Negative (Negative); Ketones,Urine 1+ (Negative); Leukocyte Esterase,Urine TRACE (Negative); Nitrate,Urine Negative (Negative); PH,Urine 6.5 (5.0-8.5); Protein,Urine Negative (Negative); Urobilinogen,Urine 0.2 EU/dl (0.2)
[2021-08-10 11:37] LABS: Barbiturates Screen,Urine Negative ng/ml (<200)
[2021-08-10 11:38] LABS: Amphetamine/Metha Screen,Urine Negative ng/ml (<1000); Benzodiazepines Screen,Urine Negative ng/ml (<200)
[2021-08-10 11:39] LABS: Cannabinoid Screen,Urine Negative ng/ml (<50); Cocaine Screen,Urine Negative ng/ml (<300)
[2021-08-10 11:40] LABS: Methadone Screen,Urine Negative ng/ml (<300)
[2021-08-10 11:41] LABS: Opiate Screen,Urine Negative ng/ml (<300); Phencyclidine Screen,Urine Negative ng/ml (<25)
[2021-08-10 12:00] VITALS: BP 103/70; PULSE 89; RESP 20; TEMP 36.8; O2SAT 100; BMI 38.9
== END 2021-08-10 13:10 | disposition home or self-care (01) ==
LOC: OBOUT 10:52 → OB 10:53
PROVIDERS: PCP Family Medicine; Visit Provider Nurse Practitioner Obstetrics & Gynecology
DX: O47.03 False labor before 37 completed weeks of gestation, third trimester (principal); Z3A.33 33 weeks gestation of pregnancy; M54.50 Low back pain, unspecified
CPT/HCPCS: 59025; 80305; 81001; 96365; G0463

== ENCOUNTER → 2021-08-26 12:53 | Outpatient (CLI) | payer OTHER, SELFPAY ==
--- NOTE | 2021-08-26 12:53 | US_ITS ---
FINAL REPORT CLINICAL HISTORY: US OB BPP/Growth for LGA; obesity FINDINGS: US PREG FOLLOW UP There is a single live intrauterine gestation. Presentation is cephalic. Placenta is anterior, grade 2. Heart rate is 136 beats per minute. AMNIOTIC FLUID: Appropriate amount. KALEIGH: 9.98 cm MEASUREMENTS: ULTRASOUND AGE: 36 weeks 2 days. GESTATION AGE: 36 weeks 0 days. ESTIMATED WEIGHT: 2855 g GROWTH PERCENTILE: 55% BPD: 9 cm corresponding with 36 weeks 5 days. OFD: 11.1 cm corresponding with 36 weeks 0 days. HC: 31.8 cm corresponding with 35 weeks 6 days. AC: 32.2 cm corresponding with 36 weeks 1 days. FL: 7.0 cm corresponding with 36 weeks 1 days. HC/AC: 0.99 CI: 81% FL/BPD: 78% FL/AC: 22% IMPRESSION: Single living IUP with an ultrasound age of 36 weeks 2 days. KALEIGH of 9.98 cm Reviewed, Interpreted and Dictated by Nick Valentin III, MD Transcribed by Darline Schwab Authenticated by Nick Valentin III, MD on 08/26/2021 02:44:26 PM [facility]
== END ==
PROVIDERS: PCP Family Medicine; Visit Provider Nurse Practitioner Obstetrics & Gynecology
DX: O36.60X0 Maternal care for excessive fetal growth, unspecified trimester, not applicable or unspecified (principal)
CPT/HCPCS: 76816; 76819

== ENCOUNTER → 2021-08-31 11:28 | Outpatient (CLI) | payer OTHER, SELFPAY | PROVIDERS: Visit Provider Nurse Practitioner Obstetrics & Gynecology | DX: Z34.90 Encounter for supervision of normal pregnancy, unspecified, unspecified trimester (principal); Z3A.36 36 weeks gestation of pregnancy | CPT/HCPCS: 86403 ==

== ENCOUNTER 2021-09-03 15:15 | Outpatient (CLI) | payer OTHER, SELFPAY ==
[2021-09-03 15:41] VITALS: BP 108/70; PULSE 72; RESP 17; TEMP 36.4; O2SAT 98; BMI 40.8
[2021-09-03 16:04] LABS: Amphetamine/Metha Screen,Urine Negative ng/ml (<1000); Benzodiazepines Screen,Urine Negative ng/ml (<200); Fetal Membrane Rupture (Rapid) Negative (Negative)
[2021-09-03 16:05] LABS: Barbiturates Screen,Urine Negative ng/ml (<200)
[2021-09-03 16:06] LABS: Methadone Screen,Urine Negative ng/ml (<300)
[2021-09-03 16:07] LABS: Cannabinoid Screen,Urine Negative ng/ml (<50); Cocaine Screen,Urine Negative ng/ml (<300)
[2021-09-03 16:08] LABS: Opiate Screen,Urine Negative ng/ml (<300)
[2021-09-03 16:09] LABS: Phencyclidine Screen,Urine Negative ng/ml (<25)
[2021-09-04 14:39] LABS: Microscopic, Urine URINE MICROSCOPIC (MICROSCOPIC)
[2021-09-04 14:40] LABS: Appearance,Urine CLEAR (Clear); Bilirubin,Urine Negative (Negative); Blood, Urine Negative (Negative); Color,Urine YELLOW (Yellow); Glucose,Urine (UA) Negative (Negative); Ketones,Urine TRACE (Negative); Leukocyte Esterase,Urine 1+ (Negative); Nitrate,Urine Negative (Negative); Protein,Urine Negative (Negative); Urobilinogen,Urine 0.2 EU/dl (0.2)
[2021-09-04 15:11] LABS: Bacteria,Urine 4+ /lpf; Squamous Epithelial Cell,Urine 20-50 #/hpf (0-5); WBC,Urine 20-50 #/hpf (0-3)
== END 2021-09-03 16:35 | disposition home or self-care (01) ==
LOC: OBOUT 15:16 → OB 15:17
PROVIDERS: PCP Family Medicine; Visit Provider Nurse Practitioner Obstetrics & Gynecology
DX: O26.893 Other specified pregnancy related conditions, third trimester (principal); Z3A.37 37 weeks gestation of pregnancy
CPT/HCPCS: 59025; 80305; 81001; 84112; 87086; G0463

== ENCOUNTER 2021-09-09 03:57 | Outpatient (CLI) | payer OTHER, SELFPAY ==
[2021-09-09 04:52] VITALS: BMI 41.9
[2021-09-09 04:56] VITALS: BP 118/69; PULSE 104; RESP 19; TEMP 36.8; O2SAT 100; BMI 41.9
[2021-09-09 05:06] LABS: Microscopic, Urine URINE MICROSCOPIC (MICROSCOPIC)
[2021-09-09 05:09] LABS: Appearance,Urine CLEAR (Clear); Bilirubin,Urine Negative (Negative); Blood, Urine TRACE-I (Negative); Color,Urine YELLOW (Yellow); Glucose,Urine (UA) Negative (Negative); Ketones,Urine Negative (Negative); Leukocyte Esterase,Urine 1+ (Negative); Nitrate,Urine Negative (Negative); PH,Urine 6.5 (5.0-8.5); Protein,Urine Negative (Negative); Specific Gravity, Urine 1.025 (1.005-1.030); Urobilinogen,Urine 0.2 EU/dl (0.2)
[2021-09-09 05:20] LABS: Amphetamine/Metha Screen,Urine Negative ng/ml (<1000); Barbiturates Screen,Urine Negative ng/ml (<200)
[2021-09-09 05:21] LABS: Benzodiazepines Screen,Urine Negative ng/ml (<200)
[2021-09-09 05:22] LABS: Cannabinoid Screen,Urine Negative ng/ml (<50); Cocaine Screen,Urine Negative ng/ml (<300)
[2021-09-09 05:23] LABS: Methadone Screen,Urine Negative ng/ml (<300)
[2021-09-09 05:24] LABS: Opiate Screen,Urine Negative ng/ml (<300); Phencyclidine Screen,Urine Negative ng/ml (<25)
[2021-09-09 05:30] VITALS: RESP 18
[2021-09-09 05:38] LABS: Bacteria,Urine 1+ /lpf; Mucus,Urine 1+ /lpf
--- NOTE | 2021-09-09 08:43 | P.PN_ITS ---
Internal Medicine - PN: Subj *Date: 09/09/21 *Time: 08:43 Interval history: She came in overnight with regular contractions. Her cervix was found to be 1 cm. It was about 50% effaced. Nonstress test was reactive. She received Brethine, fluids and a dose of Stadol. Her contractions have settled. Exam Vital signs and Labs for Last 24 Hours: Temp Pulse Resp BP Pulse Ox 98.2 F 104 H 18 118/69 100 09/09/21 04:56 09/09/21 04:56 09/09/21 05:30 09/09/21 04:56 09/09/21 04:56 Laboratory Results - last 24 hr 09/09/21 04:05: Urine Color Yellow, Urine Appearance Clear, Urine pH 6.5, Ur Specific [place] 1.025, Urine Protein Negative, Urine Glucose (UA) Negative, Urine Ketones Negative, Urine Blood Trace-i, Urine Nitrate Negative, Urine Bilirubin Negative, Urine Urobilinogen 0.2, Ur Leukocyte Esterase 1+ A, Urine RBC 3-5, Urine WBC 10-20, Ur Squamous Epith Cells 3-5, Urine Bacteria 1+, Urine Mucus 1+ 09/09/21 04:05: Urine Opiates Screen Negative, Urine Methadone Screen Negative, Ur Barbituates Screen Negative, Ur Phencyclidine Scrn Negative, Ur Amphetamines Screen Negative, U Benzodiazepines Scrn Negative, Urine Cocaine Screen Negative, U Marijuana (THC) Screen Negative I & O for Last 24 hours: Intake & Output 09/06/21 09/07/21 09/08/21 09/09/21 11:59 11:59 11:59 11:59 Weight 222 lb - Constitutional no acute distress - *Routine HEENT Exam Head: Present: normocephalic Eye: Present: EOMI, PERRL ENT: Present: mucous membranes moist Assessment and Plan (1) False labor after 37 weeks of gestation without delivery Status: Acute Category: Medical Code(s): O47.1 - False labor at or after 37 completed weeks of gestation - Assessment and plan all Dx Assessment and Plan for all problems:: She came in with regular contractions however her cervix did not change. She remained at 1 cm and 50% effaced. Station was -2. Nonstress test was reactive. She is just having a few irregular contractions. Since she has not changed her cervix we will go ahead and send her home. She has an appoint with me next javier rush. I told her to return if she has any further episodes of regular contractions.
== END 2021-09-09 08:03 | disposition home or self-care (01) ==
LOC: OBOUT 03:57 → OB 03:58
PROVIDERS: Visit Provider Nurse Practitioner Obstetrics & Gynecology
DX: O47.03 False labor before 37 completed weeks of gestation, third trimester (principal); Z3A.37 37 weeks gestation of pregnancy
CPT/HCPCS: 59025; 80305; 81001; 87086; 87088; 87186; 96365; 96372; G0463; J0595

== ENCOUNTER 2021-09-15 04:03 | Inpatient (IN) | payer OTHER, SELFPAY ==
[2021-09-15 04:09] VITALS: BMI 41.9
[2021-09-15 04:49] LABS: Coronavirus 19, PCR Not Detected (NotDetected); Influenza A, PCR Not Detected (NotDetected); Influenza B, PCR Not Detected (NotDetected)
[2021-09-15 05:18] LABS: Basophils # 0.1 K/mm3 (0-0.2); Basophils % 0.6 % (0.1-2.0); Eosinophils # 0.1 K/mm3 (0.0-0.4); Eosinophils % 0.7 % (0.1-12.0); Hematocrit 32.4 % (37.0-47.0); Hemoglobin 10.8 g/dL (12.2-16.2); Lymphocytes # 4.1 K/mm3 (0.7-4.5); Mean Corpuscular HGB Conc 33.4 g/dL (31.8-35.4); Mean Corpuscular Hemoglobin 28.5 pg (27.0-31.2); Mean Corpuscular Volume 85.5 fl (81-99); Monocytes # 0.7 K/mm3 (0.1-1.0); Monocytes % 4.5 % (1.7-9.3); Neutrophils # 9.6 K/mm3 (1.8-7.8); Neutrophils % 66.2 % (37.0-80.0); Platelet Count 268 K/mm3 (142-424); Red Blood Count 3.79 M/mm3 (4.20-5.40); Red Cell Distribution Width 15.1 % (11.5-17.5); White Blood Count 14.5 K/mm3 (4.8-10.8)
[2021-09-15 05:58] VITALS: BP 127/63; PULSE 76; RESP 18; TEMP 36.8; O2SAT 100; BMI 41.9
--- NOTE | 2021-09-15 06:06 | HMH.ANESCL ---
[facility] Anesthesia Checklist - Structural Data Admitted From: Inpatient Planned Operative Procedure/s: labor epidural Consent for Planned Operative Procedure(s) Verified: Yes - Airway Assessment C-Spine Mobility Assessed: Yes TMJ Mobility Assessed: Yes Dentition: Good Dentition - Neurological Assessment Level of Consciousness: Awake, Alert, Appropriate - Anesthesia Plan Anesthesia Risk discussed: Yes Anesthesia Plan: Verified ASA Class: III Anesthesia Type: Epidural [facility] History I have reviewed the patient's past medical history: Yes *Have you ever received a pneumonia vaccine?: No *Have you received a flu vaccine this season?: Yes Other Medical History: Reports: Cataracts Anesthesia experience/problems:: none Other Surgeries: Yes: Other. No: Amputation: No Fractures: No - *Social History Smoking Status: Never smoker Alcohol Intake: never Alcohol Intake Frequency:: other Substance Use Type: denies use *Occupational Status:: employed *Travel in the last 8 weeks: None Family Hx:: No significant family history Para: 0
[2021-09-15 07:49] VITALS: BP 118/60; PULSE 66; RESP 17; TEMP 36.5; O2SAT 99
--- NOTE | 2021-09-15 08:37 | HMH.LABNOT ---
Labor Note - Subjective: Date: 09/15/21 Time: 08:37 regular contraction - Objective: NST:: Reactive Contractions:: every 2-3 minutes Cervical Dilation:: 6-7 Effacement:: 100% Station: 0 Membranes: ruptured - Fetus: Monitoring?: Yes monitoring type:: Internal and External Comment:: I inserted an IUPC - Assessment: Labor progressing?: Yes Cephalopelvic disproportion?: No Patient Problems: All Active Problems Asthmatic bronchitis (Acute) Viral illness (Acute) Renal colic (Acute) False labor before 37 completed weeks of gestation, third trimester (Acute) False labor after 37 weeks of gestation without delivery (Acute) (Acute) - Plan: Anesthesia for epidural?: Yes Continue to labor down?: Yes Plan for ?: No Continue to monitor?: Yes Start pushing?: No
--- NOTE | 2021-09-15 08:40 | HMH.OBAPHP ---
OB - H&P: HPI Antepartum - History of Present Illness Chief complaint: Ruptured membranes, contractions History of present illness: She is a 20-year-old 1 para 0 at 38 weeks gestational age with ruptured membranes at 310 this morning. She was having contractions as well. She is admitted for delivery. - History of Present Criteria for establishing EDC:: LMP confirmed by 1st trimester US care: good care Ultrasounds: normal 1st trimester US, normal mid trimester US Obstetrical complications: none Medical complications: none - Labs Blood type: A (+) positive Rubella: immune RPR/VDRL: nonreactive GBS status: negative HBsAG: negative [facility] History I have reviewed the patient's past medical history: Yes *Have you ever received a pneumonia vaccine?: No *Have you received a flu vaccine this season?: Yes Other Medical History: Reports: Cataracts Anesthesia experience/problems:: none Other Surgeries: Yes: Other. No: Amputation: No Fractures: No - *Social History Smoking Status: Never smoker Alcohol Intake: never Alcohol Intake Frequency:: other Substance Use Type: denies use *Occupational Status:: employed *Travel in the last 8 weeks: None Family Hx:: No significant family history Para: 0 Review of Systems - Review of Systems Review of systems:: pertinent systems reviewed and negative unless documented below Meds Home Medications Medication Instructions Recorded Confirmed Type difluprednate 0.05 % eye drops 1 ml OP BID 02/12/21 09/15/21 History lifitegrast 5 % eye drops in a 1 drp OP BID 02/12/21 09/15/21 History dropperette prenat.vits,beverly,dzt-mdse-cmvhg 1 tab PO DAILY 02/12/21 09/15/21 History Ferrous Sulfate 325 mg PO DAILY 08/03/21 09/15/21 History Oxycodone HCl/Acetaminophen 1 each PO Q4HP PRN #12 tab 08/05/21 09/15/21 Rx [Percocet 5/325mg tablet] Allergies Allergy/AdvReac Type Severity Reaction Status Date / Time Penicillins Allergy Verified 09/07/21 09:55 OB - H&P: Exam - Physical Exam Vital signs: Temp Pulse Resp BP Pulse Ox 97.7 F 66 17 118/60 99 09/15/21 07:49 09/15/21 07:49 09/15/21 07:49 09/15/21 07:49 09/15/21 07:49 - Constitutional no acute distress - Routine HEENT Exam Head: Present: normocephalic Eye: Present: EOMI, PERRL ENT: Present: mucous membranes moist - Routine Neck Exam Present: supple, full ROM - Routine Respiratory Exam Absent: accessory muscle use (good air entry bilaterally), respiratory distress, wheezes, crackles - Routine Cardiovascular Exam Present: RRR. Absent: murmur - Routine Abdominal Exam Present: soft, normoactive bowel sounds. Absent: tenderness, distended, guarding - Routine Rectal Exam Patient deferred: visual exam, digital exam - Routine Exam Patient deferred: external exam, groin exam, perineal exam - Routine Extremities Exam Present: full ROM. Absent: cyanosis, edema - Routine Skin Exam Present: intact. Absent: cyanosis - Routine Neurological Exam Present: alert, oriented X3 - Routine Psychiatric Exam Present: normal affect OB - Results - Labs Labs: Short CBC 09/15/21 Range/Units 04:10 WBC 14.5 H (4.8-10.8) K/mm3 Hgb 10.8 L (12.2-16.2) g/dL Hct 32.4 L (37.0-47.0) % Plt Count 268 (142-424) K/mm3 OB - A/P Antepartum - Additional Plan Planning to breastfeed?: Yes Plan: other Additional Information:: She is admitted with ruptured membranes. We will plan to deliver her.
--- NOTE | 2021-09-15 11:39 | P.PCN_ITS ---
- Delivery Note Delivery Date:: 09/15/21 Delivery Time:: 11:11 Anesthesia Type: Epidural Was labor medically induced?: No Induction method: none Gestational age (weeks): 38 delivered prior to 39 weeks?: Yes Justification for early elective delivery:: Active Labor Infant Gender: Male at 1 minute: 8 at 5 minutes: 9 LAC or MLE?: LAC Delivery Procedure:: She arrived on the morning of September 15, 2021 with ruptured membranes. She was started on IV oxytocin and under labor epidural progressed to full dilation. She delivered spontaneously a liveborn male child at 11:11 AM on the morning of September 15, 2021. On delivery of the head it was noted that there was a tight nuchal cord. The anterior shoulder delivered spontaneously. I allowed the rest the infant's body to deliver atraumatically. The nuchal cord was then reduced. The baby was stimulated and cried spontaneously. He was vigorous. We allowed the cord to continue to pulsate for approximately 1 minute. The cord was then doubly clamped and cut and the was placed on the mother's abdomen for further care. The nurses assigned Apgars of 8 at 1 minute and 9 at 5 minutes. We then obtained cord blood. She received IV oxytocin using gentle traction on the cord and countertraction on the fundus I was able to easily deliver the placenta intact. It had a normal three-vessel cord. She had a small first-degree vaginal laceration that was repaired with a single interrupted [id number] 2-0 Vicryl suture. She has a positive blood, she is rubella immune and was group B streptococcus negative. She plans to breast-feed. Her electronics repair technician is Dr. Sawyer. Her estimated blood loss was approximately 200 cc. Laceration:: vaginal Placental Delivery Description: Spontaneous
[2021-09-15 13:38] VITALS: BP 135/73; PULSE 81; RESP 17; TEMP 36.8; O2SAT 99
[2021-09-15 17:29] VITALS: BP 133/78; PULSE 90; RESP 18; TEMP 36.7; O2SAT 99
[2021-09-15 21:19] VITALS: BP 141/80; PULSE 68; RESP 18; TEMP 36.8; O2SAT 99
[2021-09-16 04:34] VITALS: BP 130/80; PULSE 80; RESP 18; TEMP 36.8; O2SAT 100
[2021-09-16 06:53] LABS: Hematocrit 26.2 % (37.0-47.0); Hemoglobin 8.9 g/dL (12.2-16.2)
[2021-09-16 08:00] VITALS: BP 136/81; PULSE 75; RESP 17; TEMP 36.6; O2SAT 99
--- NOTE | 2021-09-16 09:29 | HMH.ACPN2 ---
Internal Medicine - PN: Subj *Date: 09/16/21 *Time: 09:29 Interval history: She is doing well this morning. She is bottlefeeding. Her lochia is normal. She is mildly anemic with a hemoglobin of 8.9. She is asymptomatic with respect to this. Exam Vital signs and Labs for Last 24 Hours: Temp Pulse Resp BP Pulse Ox 98.2 F 80 18 130/80 100 09/16/21 04:34 09/16/21 04:34 09/16/21 04:34 09/16/21 04:34 09/16/21 04:34 Laboratory Results - last 24 hr 09/16/21 06:43: Hgb 8.9 L, Hct 26.2 L I & O for Last 24 hours: Intake & Output 09/13/21 09/14/21 09/15/21 09/16/21 11:59 11:59 11:59 11:59 Weight 222 lb - Constitutional no acute distress - *Routine HEENT Exam Head: Present: normocephalic Eye: Present: EOMI, PERRL ENT: Present: mucous membranes moist Assessment and Plan (1) Normal delivery at term Status: Acute Category: Medical Code(s): O80 - Encounter for full-term uncomplicated delivery (2) anemia Status: Acute Category: Medical Code(s): O90.81 - Anemia of the puerperium - Assessment and plan all Dx Assessment and Plan for all problems:: She is doing well. She has some mild anemia. She is bottlefeeding. Her lochia is normal. We will plan to send her home tomorrow.
[2021-09-16 16:00] VITALS: BP 149/70; PULSE 76; RESP 16; TEMP 36.7; O2SAT 97
--- NOTE | 2021-09-17 08:56 | HMH.OBDCSM ---
General - General Admission date:: 09/15/21 Discharge date: 09/17/21 HPI - History of Present Illness History of present illness: She is a 20-year-old 1 para 0 at 38 weeks who came in with ruptured membranes. Hospital Course Hospital Course: She was augmented with oxytocin and progressed to full dilation. She delivered spontaneously a liveborn male child at 11:11 AM on the morning of September 15, 2021. The baby weighed 7 pounds 8 ounces and was 19 inches long. He had Apgars of 8 at 1 minute and 9 at 5 minutes. She has done well and has remained afebrile throughout her hospitalization. Her blood pressures are risen slightly into the 1 40-1 50 range over 70-80 range. She denies any headaches, scotomata or epigastric pain. We have started her on labetalol 200 mg twice daily. Her blood pressure is now stabilized. She has a positive blood, she is rubella immune and was group B streptococcus negative. Her computer consultant is Dr. Sawyer. She is discharged home to follow-up with me in approximately 1 week time to check on her blood pressure. She was given the usual instructions with respect to limiting her activity, driving and sexual activity. Her condition on discharge is stable and improved. She is now bottlefeeding. Objective Vital signs: Temp Pulse Resp BP Pulse Ox 98.0 F 76 16 149/70 H 97 09/16/21 16:00 09/16/21 16:00 09/16/21 16:00 09/16/21 16:00 09/16/21 16:00 no acute distress - *Routine HEENT Exam Head: Present: normocephalic Eye: Present: EOMI, PERRL ENT: Present: mucous membranes moist DS: Diagnosis - Discharge Diagnosis (1) Normal delivery at term Status: Acute (2) anemia Status: Acute (3) hypertension Status: Acute Discharge Plan - Patient Discharge Instructions ACTIVITY: No heavy lifting DIET: continue same diet Additional Instructions: NOTHING IN VAGINA FOR 6 WEEKS NO HEAVY LIFTING OR STRENUOUS ACTIVITY FOLLOW-UP WITH DR. MULLINS ON Patient Instructions: Depression, Labor and Delivery, Vaginal , Hemorrhage, DI for Pre-eclampsia, [facility] Post Discharge Instructions, Preventing the Spread of Coronavirus Discharge Instructions - Follow up Plan Disposition: Home, Self-Care Condition at discharge:: Stable Home Medications: Home Medications Medication Instructions Recorded Confirmed Type difluprednate 0.05 % eye drops 1 ml OP BID 02/12/21 09/15/21 History lifitegrast 5 % eye drops in a 1 drp OP BID 02/12/21 09/15/21 History dropperette prenat.vits,beverly,czz-chul-nvlfk 1 tab PO DAILY 02/12/21 09/15/21 History Ferrous Sulfate 325 mg PO DAILY 08/03/21 09/15/21 History Oxycodone HCl/Acetaminophen 1 each PO Q4HP PRN #12 tab 08/05/21 09/15/21 Rx [Percocet 5/325mg tablet] Labetalol HCl [Normodyne 100mg 200 mg PO BID #60 tab 09/17/21 Rx tablet] Prescriptions/Medication Reconciliation: New Labetalol HCl [Normodyne 100mg tablet] 200 mg PO BID #60 tab Continued difluprednate 0.05 % eye drops 1 ml OP BID lifitegrast 5 % eye drops in a dropperette 1 drp OP BID prenat.vits,beverly,sdj-dpmy-zdhse 1 tab PO DAILY Ferrous Sulfate 325 mg PO DAILY Discontinued Oxycodone HCl/Acetaminophen [Percocet 5/325mg tablet] 1 each PO Q4HP PRN #12 tab PRN Reason: Moderate To Severe Pain - Problem Reconciliation Problems Reviewed?: Yes
== END 2021-09-17 11:30 | disposition home or self-care (01) | DRG 806 ==
LOC: OBOUT 04:03 → OB 04:03
PROVIDERS: Admitting Provider Nurse Practitioner Obstetrics & Gynecology; PCP Family Medicine; Visit Provider Nurse Practitioner Obstetrics & Gynecology
DX: O69.81X0 Labor and delivery complicated by cord around neck, without compression, not applicable or unspecified (principal); O71.4 Obstetric high vaginal laceration alone; Z37.0 Single live birth; Z3A.38 38 weeks gestation of pregnancy
CPT/HCPCS: 59409; 36415; 59025; 85014; 85018; 85025; 86850; 94761; C1758; C9803; G0283; J0595; U0003; U0005

== ENCOUNTER 2021-09-23 02:02 | Inpatient (IN) | payer OTHER, SELFPAY ==
[2021-09-23] VITALS (23 sets, daily range): BP systolic 119–149; BP diastolic 66–87; PULSE 65–106; RESP 16–20; TEMP 36.3–38.3; O2SAT 93–98; BMI 38.0
--- NOTE | 2021-09-23 01:04 | PC.NURSE ---
0025 PT ARRIVED TO UNIT VIA AMBULATORY AND ACCOMPANIED BY HER MOTHER. PT IS 1 WEEK AND C/O FEVER OF 102.0, ABDOMINAL PAIN, PASSING GOLF SIZED CLOTS, AND HEAVY LOCHIA. PT DENIES FOUL SMELLING LOCHIA. PT ALSO C/O NAUSEA AND DIZZINESS. PT DENIES EXPOSURE TO INFECTIOUS ILLNESS RECENTLY. 0026: UA OBTAINED, VS OBTAINED. IV ATTEMPTED X4 WITH NO SUCCESS. HOWEVER, LABS WERE DRAWN PER ORDER WELL COVID SWAB OBTAINED. 0107: PT RESTING IN BED WITH MOTHER AT BEDSIDE. NURSE FROM MED SURG TO COME ATTEMPT IV.
[2021-09-23 01:11] LABS: Coronavirus 19, PCR Not Detected (NotDetected); Influenza A, PCR Not Detected (NotDetected); Influenza B, PCR Not Detected (NotDetected); MANUAL DIFFERENTIAL MANUAL DIFFERENTIAL (MANUAL DIFF); Microscopic, Urine URINE MICROSCOPIC (MICROSCOPIC)
[2021-09-23 01:24] LABS: Anion Gap 11.4 mEq/L (5-15); Blood Urea Nitrogen 15 mg/dl (7-17); Calcium 8.6 mg/dl (8.4-10.2); Carbon Dioxide 21 mmol/L (22.0-30.0); Chloride 107 mmol/L (98-107); Creatinine Clearance Estimated 181 mL/min (50-200); Estimated Glomerular Filt Rate 105 ml/min (>60); GFR (African American) 127 ML/MIN (>60); Glucose 109 mg/dl (74-100); Potassium 3.4 mmoL/L (3.5-5.1); Sodium 136 mmol/L (136-145)
[2021-09-23 01:25] LABS: Lactic Acid 0.9 mmol/L (0.7-2.1)
[2021-09-23 01:30] LABS: D-Dimer 2.66 ug/mL (0.0-0.5)
[2021-09-23 01:46] LABS: Basophils # 0.1 K/mm3 (0-0.2); Basophils % 0.6 % (0.1-2.0); Eosinophils # 0.3 K/mm3 (0.0-0.4); Eosinophils % 2.3 % (0.1-12.0); Hematocrit 30.2 % (37.0-47.0); Hemoglobin 9.8 g/dL (12.2-16.2); Lymphocytes # 1.2 K/mm3 (0.7-4.5); Lymphocytes % 10.4 % (10-50); Mean Corpuscular HGB Conc 32.4 g/dL (31.8-35.4); Mean Corpuscular Hemoglobin 28.2 pg (27.0-31.2); Mean Platelet Volume 8.5 fl (7.4-10.4); Monocytes # 0.3 K/mm3 (0.1-1.0); Monocytes % 2.8 % (1.7-9.3); Neutrophils # 9.5 K/mm3 (1.8-7.8); Neutrophils % 83.8 % (37.0-80.0); Platelet Count 277 K/mm3 (142-424); Red Blood Count 3.47 M/mm3 (4.20-5.40); Red Cell Distribution Width 15.8 % (11.5-17.5); White Blood Count 11.3 K/mm3 (4.8-10.8)
[2021-09-23 01:47] LABS: Appearance,Urine CLEAR (Clear); Bilirubin,Urine Negative (Negative); Blood, Urine 3+ (Negative); Color,Urine YELLOW (Yellow); Glucose,Urine (UA) Negative (Negative); Ketones,Urine Negative (Negative); Leukocyte Esterase,Urine 1+ (Negative); Nitrate,Urine Negative (Negative); Protein,Urine Negative (Negative); Specific Gravity, Urine 1.015 (1.005-1.030); Urobilinogen,Urine 0.2 EU/dl (0.2)
[2021-09-23 02:06] LABS: Mucus,Urine 2+ /lpf; RBC,Urine 20-50 #/hpf (0-3)
[2021-09-23 03:12] LABS: Eosinophils % 1 % (0-3); Lymphocytes % 10 % (10-50); Monocytes % 1 % (2-9); Neutrophils % 88 % (42-76); Platelet Estimate Normal; Total Cells Counted 100
--- NOTE | 2021-09-23 07:18 | P.CONPHA_ITS ---
[facility] Pharmacy VTE Monitoring - Patient Demographics Admission date: 09/23/21 Report Date: 09/23/21 Time: 07:18 Allergies/Adverse Reactions: Patient Allergies Penicillins Allergy (Verified 09/22/21 14:01) Height: 1.55 m Weight: 91.172 kg - VTE Risk Labs: VTE Related Lab Results Hgb 9.8 g/dL (12.2-16.2) L 09/23/21 01:00 Hct 30.2 % (37.0-47.0) L 09/23/21 01:00 Plt Count 277 K/mm3 (142-424) 09/23/21 01:00 BUN 15 mg/dl (7-17) 09/23/21 01:00 Creatinine 0.70 mg/dl (0.52-1.04) 09/23/21 01:00 Estimated Creat Clear 181 mL/min (50-200) 09/23/21 01:00 VTE Score: 2 VTE Risk Level: Very Low Risk - Prophylaxis VTE Prophylaxis Ordered?: Yes Types of VTE Prophylaxis: TEDS Knee High Location of Applied Device: Bilateral Lower Extremeties
--- NOTE | 2021-09-23 07:18 | HMH.PHAINT ---
MEDICATION RECONCILIATION COMPLETED ON PATIENT USING EXTERNAL FILL HISTORY FROM PHARMACY. -ABDULLAHI ALVARADO, BRANDID
--- NOTE | 2021-09-23 07:31 | PC.NURSE ---
REPORT GIVEN TO DAI WOODRUFF
--- NOTE | 2021-09-23 08:00 | US_ITS ---
FINAL REPORT CLINICAL HISTORY: fever, possible retained products FINDINGS: Transvaginal sonographic images of the pelvis were obtained. The uterus measures 12.9 x 6.9 x 9.1 cm. The endometrium measures 2.4 cm, which is within normal limits. The right ovary measures 3.4 cm in length and left ovary measures 2.8 cm in length. Normal blood flow seen to the ovaries. Small follicles are present. There is an echogenic focus in the region of the endometrium which could represent retained products of conception. There is also presumed complex fluid in the region of the lower uterine segment. IMPRESSION: Enlarged uterus consistent with state. A 2.4 x 1.5 cm echogenic area in the endometrial cavity, worrisome for retained products of conception. Small amount of complex fluid in the lower uterine segment. Reviewed, Interpreted and Dictated by Nick Valentin III, MD Transcribed by Raquel Gee Authenticated and [facility]
--- NOTE | 2021-09-23 08:43 | HMH.PHACONS ---
- Pharmacy Consult Date: 09/23/21 Time: 08:43 Referring provider: DR. MULLINS Reason for Consult:: GENTAMICIN Allergies and ADEs:: Allergies Allergy/AdvReac Type Severity Reaction Status Date / Time Penicillins Allergy Verified 09/22/21 14:01 Home Medications:: Home Medications Medication Instructions Recorded Confirmed Type prenat.vits,beverly,wah-ehir-abcyy 1 tab PO DAILY 02/12/21 09/23/21 History Ferrous Sulfate 325 mg PO DAILY 08/03/21 09/23/21 History labetalol 200 mg tablet 200 mg PO BID 09/22/21 09/23/21 History miSOPROStoL [Misoprostol] 200 mcg PO BID 09/23/21 09/23/21 History Height: 1.55 m Weight: 91.172 kg Laboratory Results:: Laboratory Results - last 24 hr 09/23/21 01:00: WBC 11.3 H, RBC 3.47 L, Hgb 9.8 L, Hct 30.2 L, MCV 87.0, MCH 28.2, MCHC 32.4, RDW 15.8, Plt Count 277, MPV 8.5, Neut % (Auto) 83.8 H, Lymph % (Auto) 10.4, [place] % (Auto) 2.8, Eos % (Auto) 2.3, Baso % (Auto) 0.6, Neut # (Auto) 9.5 H, Lymph # (Auto) 1.2, [place] # (Auto) 0.3, Eos # (Auto) 0.3, Baso # (Auto) 0.1, Total Counted 100, Neutrophils % (Manual) 88 H, Lymphocytes % (Manual) 10, Monocytes % (Manual) 1 L, Eosinophils % (Manual) 1, Platelet Estimate Normal, RBC Morphology Not Reportable 09/23/21 01:00: Urine Color Yellow, Urine Appearance Clear, Urine pH 6.0, Ur Specific [place] 1.015, Urine Protein Negative, Urine Glucose (UA) Negative, Urine Ketones Negative, Urine Blood 3+, Urine Nitrate Negative, Urine Bilirubin Negative, Urine Urobilinogen 0.2, Ur Leukocyte Esterase 1+ A, Urine RBC 20-50, Urine WBC 5-10, Ur Squamous Epith Cells 5-10, Urine Bacteria None, Urine Mucus 2+ 09/23/21 01:00: Sodium 136, Potassium 3.4 L, Chloride 107, Carbon Dioxide 21 L, Anion Gap 11.4, BUN 15, Creatinine 0.70, Estimated Creat Clear 181, Estimated GFR 105, Est GFR ( Amer) 127, Glucose 109 H, Calcium 8.6 09/23/21 01:00: Lactate 0.9 09/23/21 01:00: SARS-CoV-2 (PCR) Not detected, Influenza A Untype (PCR) Not detected, Influenza Type B (PCR) Not detected 09/23/21 01:00: D-Dimer 2.66 H Medical History: Denies:: Cancer, Diabetes Mellitus Type 1, Diabetes Mellitus Type 2, MRSA Assessment and Plan - Assessment and plan all Dx Assessment and Plan for all problems:: Age: 20 yo Serum creatinine: 0.7 mg/dL Height: 61.0 Inches Weight (kg): 91 Assessment: IBW (kg): 47.80 Dosing wt(kg): 65.1 Estimated Creatinine clearance (ml/min): 95.1 CRCL method: Cockcroft and Gault using ibw(default). Drug selected: Gentamicin Loading dose (mg): 0 Vd (liters): 19.5 (factor used: 0.3 L/kg) Jm (hr-1): 0.293 Half life (hrs): 2.37 Recommended dose: 400 mg Interval: 24 hrs Infusion time (hrs): 1 Predicted peak (mcg/mL): 17.8 Predicted trough (mcg/mL): 0.02 Recommendations: Give Gentamicin 400 mg (4.4 MG/KG) q 24 hrs with an expected Cpeak of 17.8 mcg/ml and an expected Ctrough of 0.02 mcg/ml. Thank you for the consult.
--- NOTE | 2021-09-23 08:52 | HMH.HP ---
*Admission Date: 09/23/21 *Chief complaint: Fever 1 week *History of present illness: She is a 20-year-old 1 now para 0 about a week from a vaginal delivery. She was seen yesterday and was doing well. Last night she began to have a fever and it went up to about 102 degrees. As result of that she is admitted for IV antibiotics and treatment for possible endometritis. Urinalysis was normal. [facility] History I have reviewed the patient's past medical history: Yes Medical History: Denies:: Cancer, Diabetes Mellitus Type 1, Diabetes Mellitus Type 2, MRSA *Have you ever received a pneumonia vaccine?: Yes *Have you received a flu vaccine this season?: Yes Other Medical History: Reports: Cataracts Other Surgeries: Yes: Other. No: Amputation: No Fractures: No - *Social History Last grade of school completed: High school graduate Smoking Status: Never smoker Alcohol Intake: never Alcohol Intake Frequency:: other Substance Use Type: denies use *Occupational Status:: other Housing: house Household Members: spouse *Travel in the last 8 weeks: None Family Hx:: Unable to obtain Review of Systems - Review of Systems Review of systems:: pertinent systems reviewed and negative unless documented below Meds Home Medications Medication Instructions Recorded Confirmed Type prenat.vits,beverly,mmj-ghmo-pkdnm 1 tab PO DAILY 02/12/21 09/23/21 History Ferrous Sulfate 325 mg PO DAILY 08/03/21 09/23/21 History labetalol 200 mg tablet 200 mg PO BID 09/22/21 09/23/21 History miSOPROStoL [Misoprostol] 200 mcg PO BID 09/23/21 09/23/21 History Allergies Allergy/AdvReac Type Severity Reaction Status Date / Time Penicillins Allergy Verified 09/22/21 14:01 Exam Vital signs and Labs for Last 24 Hours: Temp Pulse Resp BP Pulse Ox 99.5 F 89 18 129/78 98 09/23/21 04:39 09/23/21 04:39 09/23/21 04:39 09/23/21 04:39 09/23/21 04:39 Laboratory Results - last 24 hr 09/23/21 01:00: WBC 11.3 H, RBC 3.47 L, Hgb 9.8 L, Hct 30.2 L, MCV 87.0, MCH 28.2, MCHC 32.4, RDW 15.8, Plt Count 277, MPV 8.5, Neut % (Auto) 83.8 H, Lymph % (Auto) 10.4, [place] % (Auto) 2.8, Eos % (Auto) 2.3, Baso % (Auto) 0.6, Neut # (Auto) 9.5 H, Lymph # (Auto) 1.2, [place] # (Auto) 0.3, Eos # (Auto) 0.3, Baso # (Auto) 0.1, Total Counted 100, Neutrophils % (Manual) 88 H, Lymphocytes % (Manual) 10, Monocytes % (Manual) 1 L, Eosinophils % (Manual) 1, Platelet Estimate Normal, RBC Morphology Not Reportable 09/23/21 01:00: Urine Color Yellow, Urine Appearance Clear, Urine pH 6.0, Ur Specific [place] 1.015, Urine Protein Negative, Urine Glucose (UA) Negative, Urine Ketones Negative, Urine Blood 3+, Urine Nitrate Negative, Urine Bilirubin Negative, Urine Urobilinogen 0.2, Ur Leukocyte Esterase 1+ A, Urine RBC 20-50, Urine WBC 5-10, Ur Squamous Epith Cells 5-10, Urine Bacteria None, Urine Mucus 2+ 09/23/21 01:00: Sodium 136, Potassium 3.4 L, Chloride 107, Carbon Dioxide 21 L, Anion Gap 11.4, BUN 15, Creatinine 0.70, Estimated Creat Clear 181, Estimated GFR 105, Est GFR ( Amer) 127, Glucose 109 H, Calcium 8.6 09/23/21 01:00: Lactate 0.9 09/23/21 01:00: SARS-CoV-2 (PCR) Not detected, Influenza A Untype (PCR) Not detected, Influenza Type B (PCR) Not detected 09/23/21 01:00: D-Dimer 2.66 H I & O for Last 24 hours: Intake & Output 09/20/21 09/21/21 09/22/21 09/23/21 11:59 11:59 11:59 11:59 Weight 201 lb - Constitutional no acute distress - *Routine HEENT Exam Head: Present: normocephalic Eye: Present: EOMI, PERRL ENT: Present: mucous membranes moist - *Routine Neck Exam Present: supple, full ROM - *Routine Respiratory Exam Absent: accessory muscle use (good air entry bilaterally), wheezes, crackles - *Routine Cardiovascular Exam Present: RRR. Absent: murmur - *Routine Abdominal Exam Present: soft, normoactive bowel sounds, tenderness (She was tender over the uterus.). Absent: rebound, guarding, mass - *Routine Rec
[2021-09-23 09:39] LABS: Basophils # 0.1 K/mm3 (0-0.2); Eosinophils # 0.1 K/mm3 (0.0-0.4); Eosinophils % 0.5 % (0.1-12.0); Hematocrit 29.3 % (37.0-47.0); Hemoglobin 9.7 g/dL (12.2-16.2); Lymphocytes # 1.1 K/mm3 (0.7-4.5); Lymphocytes % 12.7 % (10-50); Mean Corpuscular Hemoglobin 29.1 pg (27.0-31.2); Mean Corpuscular Volume 88.1 fl (81-99); Mean Platelet Volume 8.8 fl (7.4-10.4); Monocytes # 0.3 K/mm3 (0.1-1.0); Monocytes % 3.3 % (1.7-9.3); Neutrophils # 7.4 K/mm3 (1.8-7.8); Neutrophils % 82.4 % (37.0-80.0); Platelet Count 273 K/mm3 (142-424); Red Blood Count 3.33 M/mm3 (4.20-5.40); Red Cell Distribution Width 15.8 % (11.5-17.5)
--- NOTE | 2021-09-23 10:15 | HMH.ACPN2 ---
Internal Medicine - PN: Subj *Date: 09/23/21 *Time: 10:15 Interval history: She is now afebrile and she is doing well. We have added gentamicin to her antibiotic course. Ultrasound showed that she may have some small retained products of conception. We will go ahead with a D&C. She also does complain of some breast engorgement and will start an Oscar bandage for that. Exam Vital signs and Labs for Last 24 Hours: Temp Pulse Resp BP Pulse Ox 99.5 F 89 18 129/78 97 09/23/21 04:39 09/23/21 04:39 09/23/21 04:39 09/23/21 04:39 09/23/21 08:00 Laboratory Results - last 24 hr 09/23/21 01:00: WBC 11.3 H, RBC 3.47 L, Hgb 9.8 L, Hct 30.2 L, MCV 87.0, MCH 28.2, MCHC 32.4, RDW 15.8, Plt Count 277, MPV 8.5, Neut % (Auto) 83.8 H, Lymph % (Auto) 10.4, [place] % (Auto) 2.8, Eos % (Auto) 2.3, Baso % (Auto) 0.6, Neut # (Auto) 9.5 H, Lymph # (Auto) 1.2, [place] # (Auto) 0.3, Eos # (Auto) 0.3, Baso # (Auto) 0.1, Total Counted 100, Neutrophils % (Manual) 88 H, Lymphocytes % (Manual) 10, Monocytes % (Manual) 1 L, Eosinophils % (Manual) 1, Platelet Estimate Normal, RBC Morphology Not Reportable 09/23/21 01:00: Urine Color Yellow, Urine Appearance Clear, Urine pH 6.0, Ur Specific [place] 1.015, Urine Protein Negative, Urine Glucose (UA) Negative, Urine Ketones Negative, Urine Blood 3+, Urine Nitrate Negative, Urine Bilirubin Negative, Urine Urobilinogen 0.2, Ur Leukocyte Esterase 1+ A, Urine RBC 20-50, Urine WBC 5-10, Ur Squamous Epith Cells 5-10, Urine Bacteria None, Urine Mucus 2+ 09/23/21 01:00: Sodium 136, Potassium 3.4 L, Chloride 107, Carbon Dioxide 21 L, Anion Gap 11.4, BUN 15, Creatinine 0.70, Estimated Creat Clear 181, Estimated GFR 105, Est GFR ( Amer) 127, Glucose 109 H, Calcium 8.6 09/23/21 01:00: Lactate 0.9 09/23/21 01:00: SARS-CoV-2 (PCR) Not detected, Influenza A Untype (PCR) Not detected, Influenza Type B (PCR) Not detected 09/23/21 01:00: D-Dimer 2.66 H 09/23/21 09:11: WBC 9.0, RBC 3.33 L, Hgb 9.7 L, Hct 29.3 L, MCV 88.1, MCH 29.1, MCHC 33.0, RDW 15.8, Plt Count 273, MPV 8.8, Neut % (Auto) 82.4 H, Lymph % (Auto) 12.7, [place] % (Auto) 3.3, Eos % (Auto) 0.5, Baso % (Auto) 1.0, Neut # (Auto) 7.4, Lymph # (Auto) 1.1, [place] # (Auto) 0.3, Eos # (Auto) 0.1, Baso # (Auto) 0.1 I & O for Last 24 hours: Intake & Output 09/20/21 09/21/21 09/22/21 09/23/21 11:59 11:59 11:59 11:59 Weight 201 lb - Constitutional no acute distress - *Routine HEENT Exam Head: Present: normocephalic Eye: Present: EOMI, PERRL ENT: Present: mucous membranes moist Assessment and Plan (1) fever Status: Acute Category: Medical Code(s): O86.4 - Pyrexia of unknown origin following delivery (2) endometritis Status: Acute Category: Medical Code(s): O86.12 - Endometritis following delivery (3) Retained products of conception, Status: Acute Category: Medical Code(s): O72.0 - Third-stage hemorrhage - Assessment and plan all Dx Assessment and Plan for all problems:: We will go ahead with a dilation and curettage. We discussed the risks of surgery that includes bleeding, infection, injuries to the adjacent structures. We discussed the rare risk of perforation. All questions were answered and consents were signed.
--- NOTE | 2021-09-23 12:28 | P.PN_ITS ---
[facility] Anesthesia Checklist - Patient Identification Patient Identification: Arm Band - Structural Data Admitted From: Inpatient Planned Operative Procedure/s: D&C Consent for Planned Operative Procedure(s) Verified: Yes Verified Documents: Surgical Consent, History and Physical - NPO Status Verified Time NPO: 00:00 - Additional verifications Anesthesia Reactions: No - Airway Assessment C-Spine Mobility Assessed: Yes (mp2) TMJ Mobility Assessed: Yes Dentition: Good Dentition - Neurological Assessment Level of Consciousness: Awake, Alert - Anesthesia Plan Anesthesia Risk discussed: Yes Anesthesia Plan: Verified ASA Class: II Anesthesia Type: General [facility] History I have reviewed the patient's past medical history: Yes Medical History: Reports:: Seizures (as child) Denies:: Cancer, Diabetes Mellitus Type 1, Diabetes Mellitus Type 2, MRSA *Have you ever received a pneumonia vaccine?: Yes *Have you received a flu vaccine this season?: Yes Other Medical History: Reports: Cataracts Anesthesia experience/problems:: nac Other Surgeries: Yes: Other. No: Amputation: No Fractures: No - *Social History Last grade of school completed: High school graduate Smoking Status: Never smoker Alcohol Intake: never Alcohol Intake Frequency:: other Substance Use Type: denies use *Occupational Status:: other Housing: house Household Members: spouse *Travel in the last 8 weeks: None Family Hx:: Unable to obtain
--- NOTE | 2021-09-23 13:43 | P.OP_ITS ---
Date of procedure: 09/23/21 Pre-op Diagnosis:: Fever, endometritis, retained products of conception Post-op Diagnosis:: Fever, endometritis, retained products of conception Procedure performed:: Dilation and curettage with Coles suction Surgeon:: Driss Rice MD HEAD OF CYTOGENETICS:: Other (Jameel Che) Anesthesia: LMA Estimated blood loss (mL): 100 Clinical Note:: She is a 20-year-old 1 now para 1 who was about a week . She came in with having started a fever last night. She had some lower abdominal pain. She was started on triple IV antibiotics and an ultrasound this morning showed that she may have had some retained products of conception. As a result of that she was offered D&C. Operative findings:: She had an anteverted bulky uterus. There was tissue recovered when I did her D&C. I used Rao suction with an 11 mm curette. Operative note:: She was taken the operating room where LMA anesthesia was found be adequate. She is prepped draped normal sterile fashion lithotomy position. Weighted speculum space in the vagina and the anterior lip of the cervix was grasped with a sponge forcep. I then did swabs within the endometrial cavity for both aerobic and anaerobic bacteria. The cervix was already 11 mm dilated so I was able to easily insert an 11 mm curved Coles suction curette. I curetted the entire endometrial cavity and retrieved a moderate amount of tissue. This was followed by a gentle curettage. She tolerated she did well and was taken to the recovery room in excellent condition. All sponge, instrument counts were correct. Estimated blood loss was less than 100 cc. Condition: stable Disposition: PACU Specimens:: Endometrial curettings, retained products of conception Complications:: None
--- NOTE | 2021-09-23 13:55 | HMH.ANESI ---
[facility] Anesthesia Record Part I Intake, IV Amount: 700 Estimated blood loss (mL): 50 Urine output (mL): 0 Blood Pressure: 124/67 SaO2: 94 Pulse Rate: 86 Respiratory Rate: 20 Temperature: 97.4 F Patient is:: Drowsy Stable to PACU at:: 13:51
--- NOTE | 2021-09-23 13:56 | PC.NURSE ---
12:31 - Pt. to pre-op via bed. pt. accompanied by Pre-op staff x2
--- NOTE | 2021-09-23 14:45 | PC.NURSE ---
Pt. back to room 280 from PACU. Pt. accompanied by PACU staff x2. O2 sats at 88%, 2 L O2 NC applied, O2 sats up to 96%.
[2021-09-23 15:01] LABS: Gentamicin,Random 6.5 ug/ml
--- NOTE | 2021-09-23 18:29 | PC.NURSE ---
1710: Routine reassessment completed. Pt. reports pain less than this morning, vaginal bleeding at small amount of rubra. Breasts bound with anitra bandage. No further acute changes from previous assessment. Pt. denies needs, will continue to monitor.
[2021-09-23 22:22] LABS: Gentamicin,Random 1.4 ug/ml
[2021-09-24 03:17] VITALS: BP 137/77; PULSE 68; RESP 17; TEMP 36.8; O2SAT 96
--- NOTE | 2021-09-24 06:46 | PC.NURSE ---
A&OX4. TOLERATING RA WELL MAJORITY OF SHIFT. PT STATES HER PAIN IS MUCH BETTER AND BLEEDING IS MUCH BETTER WELL. PT HAS BEEN UP TO SHOWER THIS SHIFT. GOOD APPETITE. AMBULATING INDEPENDENTLY IN ROOM. PT SLEPT WELL MAJORITY OF SHIFT. CALLED OUT AT 0500 STATING SHE WAS HAVING TROUBLE GETTING A DEEP BREATH. SAT AND TALKED WITH PT, STATES SHE IS VERY ANXIOUS AND MISSING HER SON. PROVIDED FAN FOR PT. AFTER TALKING, PT STATES SHE IS FEELING BETTER. ASKED FOR OXYGEN, STATES IT MAKES HER FEEL BETTER. SITTING UP IN BED PLAYING ON PHONE AT THIS TIME, NO OTHER NEEDS OR C/O NOTED. VSS T/O SHIFT.
[2021-09-24 07:35] LABS: Basophils # 0.1 K/mm3 (0-0.2); Basophils % 1.8 % (0.1-2.0); Eosinophils % 0.5 % (0.1-12.0); Hematocrit 30.7 % (37.0-47.0); Hemoglobin 10.1 g/dL (12.2-16.2); Lymphocytes # 1.5 K/mm3 (0.7-4.5); Lymphocytes % 18.7 % (10-50); Mean Corpuscular HGB Conc 32.7 g/dL (31.8-35.4); Mean Corpuscular Hemoglobin 28.4 pg (27.0-31.2); Mean Corpuscular Volume 86.8 fl (81-99); Mean Platelet Volume 9.4 fl (7.4-10.4); Monocytes # 0.5 K/mm3 (0.1-1.0); Monocytes % 6.2 % (1.7-9.3); Neutrophils # 5.7 K/mm3 (1.8-7.8); Neutrophils % 72.9 % (37.0-80.0); Platelet Count 319 K/mm3 (142-424); Red Blood Count 3.54 M/mm3 (4.20-5.40); Red Cell Distribution Width 15.5 % (11.5-17.5); White Blood Count 7.8 K/mm3 (4.8-10.8)
[2021-09-24 08:00] VITALS: BP 141/81; PULSE 75; RESP 17; TEMP 37; O2SAT 96
[2021-09-24 08:05] VITALS: BP 119/82; PULSE 68; TEMP 36.3
--- NOTE | 2021-09-24 08:05 | HMH.ANESII ---
[facility] Anesthesia Record Part II Discharge Time: 14:21 Destination: Obstetric PACU nurse assessment reviewed?: Yes Patient Condition:: Good Anesthesia Complications:: None Swallowing reflex intact?: Yes Cyanosis?: No Blood Pressure: 119/82 Pulse Rate: 68 Temperature: 97.4 F Mental Status: Alert & Oriented Pain level:: 0 Nausea and/or vomitting:: None Intake, IV Amount: 0
--- NOTE | 2021-09-24 08:23 | HMH.PHACONS ---
- Pharmacy Consult Date: 09/24/21 Time: 08:23 Referring provider: DR. MULLINS Reason for Consult:: GENTAMICIN LEVELS Allergies and ADEs:: Allergies Allergy/AdvReac Type Severity Reaction Status Date / Time Penicillins Allergy Verified 09/22/21 14:01 Home Medications:: Home Medications Medication Instructions Recorded Confirmed Type prenat.vits,beverly,mhi-sqke-rmamt 1 tab PO DAILY 02/12/21 09/23/21 History Ferrous Sulfate 325 mg PO DAILY 08/03/21 09/23/21 History labetalol 200 mg tablet 200 mg PO BID 09/22/21 09/23/21 History miSOPROStoL [Misoprostol] 200 mcg PO BID 09/23/21 09/23/21 History Height: 1.55 m Weight: 91.172 kg Laboratory Results:: Laboratory Results - last 24 hr 09/23/21 09:11: WBC 9.0, RBC 3.33 L, Hgb 9.7 L, Hct 29.3 L, MCV 88.1, MCH 29.1, MCHC 33.0, RDW 15.8, Plt Count 273, MPV 8.8, Neut % (Auto) 82.4 H, Lymph % (Auto) 12.7, [place] % (Auto) 3.3, Eos % (Auto) 0.5, Baso % (Auto) 1.0, Neut # (Auto) 7.4, Lymph # (Auto) 1.1, [place] # (Auto) 0.3, Eos # (Auto) 0.1, Baso # (Auto) 0.1 09/23/21 14:40: Random Gentamicin 6.5 09/23/21 21:39: Random Gentamicin 1.4 09/24/21 07:18: WBC 7.8, RBC 3.54 L, Hgb 10.1 L, Hct 30.7 L, MCV 86.8, MCH 28.4, MCHC 32.7, RDW 15.5, Plt Count 319, MPV 9.4, Neut % (Auto) 72.9, Lymph % (Auto) 18.7, [place] % (Auto) 6.2, Eos % (Auto) 0.5, Baso % (Auto) 1.8, Neut # (Auto) 5.7, Lymph # (Auto) 1.5, [place] # (Auto) 0.5, Eos # (Auto) 0.0, Baso # (Auto) 0.1 Medical History: Reports:: Seizures (as child) Denies:: Cancer, Diabetes Mellitus Type 1, Diabetes Mellitus Type 2, MRSA Assessment and Plan (1) fever Status: Acute Category: Medical Code(s): O86.4 - Pyrexia of unknown origin following delivery (2) endometritis Status: Acute Category: Medical Code(s): O86.12 - Endometritis following delivery (3) Retained products of conception, Status: Acute Category: Medical Code(s): O72.0 - Third-stage hemorrhage - Assessment and plan all Dx Assessment and Plan for all problems:: PATIENT'S GENTAMICIN LEVELS AT 5 HR AND 12.5 HR POST INFUSION WERE 6.5 MCG/ML AND 1.4 MCG/ML, RESPECTIVELY. CALCULATED PEAK IS 14.8 MCG/ML AND TROUGH OF <0.1 MCG/ML. RECOMMEND CONTINUE WITH GENTAMICIN 400 MG Q24H AT THIS TIME.
--- NOTE | 2021-09-24 12:16 | P.PN_ITS ---
Internal Medicine - PN: Subj *Date: 09/24/21 *Time: 12:16 Interval history: She had a D&C yesterday for some retained products. Her fever has completely resolved. She continues with IV antibiotics. I would like to continue with them for at least another 24 hours. She will then go home with IV antibiotics. She denies any pain or discomfort. She denies any excess bleeding. Exam Vital signs and Labs for Last 24 Hours: Temp Pulse Resp BP Pulse Ox 97.4 F L 68 17 119/82 96 09/24/21 08:05 09/24/21 08:05 09/24/21 08:00 09/24/21 08:05 09/24/21 08:00 Laboratory Results - last 24 hr 09/23/21 14:40: Random Gentamicin 6.5 09/23/21 21:39: Random Gentamicin 1.4 09/24/21 07:18: WBC 7.8, RBC 3.54 L, Hgb 10.1 L, Hct 30.7 L, MCV 86.8, MCH 28.4, MCHC 32.7, RDW 15.5, Plt Count 319, MPV 9.4, Neut % (Auto) 72.9, Lymph % (Auto) 18.7, [place] % (Auto) 6.2, Eos % (Auto) 0.5, Baso % (Auto) 1.8, Neut # (Auto) 5.7, Lymph # (Auto) 1.5, [place] # (Auto) 0.5, Eos # (Auto) 0.0, Baso # (Auto) 0.1 I & O for Last 24 hours: Intake & Output 09/22/21 09/23/21 09/24/21 09/25/21 11:59 11:59 11:59 11:59 Intake Total 700 / 700 Balance 700 / 700 Weight 201 lb Microbiology Reports for the Last 24 Hours: Microbiology 09/23/21 01:00 Urine,Clean Catch Urine Culture - Preliminary 09/23/21 13:37 Cervix Gram Stain - Final - Constitutional no acute distress - *Routine HEENT Exam Head: Present: normocephalic Eye: Present: EOMI, PERRL ENT: Present: mucous membranes moist Assessment and Plan (1) fever Status: Acute Category: Medical Code(s): O86.4 - Pyrexia of unknown origin following delivery (2) endometritis Status: Acute Category: Medical Code(s): O86.12 - Endometritis following delivery (3) Retained products of conception, Status: Acute Category: Medical Code(s): O72.0 - Third-stage hemorrhage - Assessment and plan all Dx Assessment and Plan for all problems:: She continues to do well. We will plan to give her another 24 hours of IV antibiotics. We will plan to send her home tomorrow if she continues to remain afebrile.
[2021-09-24 16:00] VITALS: BP 145/88; PULSE 71; RESP 18; TEMP 36.8; O2SAT 98
--- NOTE | 2021-09-24 17:52 | PC.NURSE ---
Pt has rested well this shift. No acute changes from previous assessment. VSS, will continue to monitor
[2021-09-24 20:00] VITALS: BP 125/78; PULSE 81; RESP 18; TEMP 37; O2SAT 98; O2SAT 99
[2021-09-25] VITALS: TEMP 37.1
[2021-09-25 03:31] VITALS: BP 130/76; PULSE 85; RESP 18; TEMP 36.9; O2SAT 100
--- NOTE | 2021-09-25 04:48 | PC.NURSE ---
PT HAS RESTED WELL THIS SHIFT, VS REMAIN STABLE CHARTED. NO ACUTE CHANGES FROM PREVIOUS ASSESSMENT. PT STATES VAGINAL BLEEDING IS MINIMAL. SEE EMAR FOR MEDICATIONS GIVEN THIS SHIFT FOR ABDOMINAL CRAMPING. WILL CONTINUE TO MONITOR.
--- NOTE | 2021-09-25 09:16 | PC.NURSE ---
0942 DR. MULLINS AT BEDSIDE
--- NOTE | 2021-09-25 09:34 | HMH.DCSUM ---
General - General Admission date:: 09/23/21 Discharge date: 09/25/21 HPI HPI: She is a 20-year-old 1 now para 0 about a week from a vaginal delivery. She was seen yesterday and was doing well. Last night she began to have a fever and it went up to about 102 degrees. As result of that she is admitted for IV antibiotics and treatment for possible endometritis. Urinalysis was normal. Hospital Course Hospital Course: She was started on IV antibiotics. She received clindamycin, gentamicin and Flagyl. She has done well throughout her hospitalization and has remained afebrile after the first day. On her first admission days she went to the OR for a D&C. Pathology shows no products of conception. She had some thickened endometrium that was removed at the time of her D&C but nothing else. Swabs were done for cultures and they have not grown any bacteria. We will discharge her home to follow-up with me in approximately a week's time. She will be given a prescription for Flagyl 500 mg 3 times daily for 5 days as well as clindamycin 300 mg p.o. for 5 days. She is taking ibuprofen for discomfort. She was given the usual instructions with respect to limiting her activity. She will call if she has any episodes of fever. Her condition on discharge is stable and improved. Objective Vital signs: Temp Pulse Resp BP Pulse Ox 98.5 F 85 18 130/76 100 09/25/21 03:31 09/25/21 03:31 09/25/21 03:31 09/25/21 03:31 09/25/21 03:31 no acute distress - *Routine HEENT Exam Head: Present: normocephalic Eye: Present: EOMI, PERRL ENT: Present: mucous membranes moist Results Labs on day of discharge: Preliminary micro results at discharge 09/23/21 01:00 Urine Culture - Preliminary Urine,Clean Catch 09/23/21 13:37 Wound Culture - Preliminary Cervix DS: Diagnosis - Discharge Diagnosis (1) fever Status: Acute (2) endometritis Status: Acute (3) Retained products of conception, Status: Acute Discharge Plan - Patient Discharge Instructions ACTIVITY: No heavy lifting DIET: continue same diet Additional Instructions: NOTHING IN VAGINA FOR 6 WEEKS NO HEAVY LIFTING OR STRENUOUS ACTIVITY FOLLOW-UP WITH DR. MULLINS ON 09/29 SCHEDULED Patient Instructions: DI for a Dilation and Curettage - Follow up Plan Disposition: Home, Self-Care Condition at discharge:: Stable Home Medications: Home Medications Medication Instructions Recorded Confirmed Type prenat.vits,beverly,hrb-gwaj-ttrkq 1 tab PO DAILY 02/12/21 09/23/21 History Ferrous Sulfate 325 mg PO DAILY 08/03/21 09/23/21 History labetalol 200 mg tablet 200 mg PO BID 09/22/21 09/23/21 History miSOPROStoL [Misoprostol] 200 mcg PO BID 09/23/21 09/23/21 History Fluconazole [Diflucan] 150 mg PO DAILY #5 tab 09/25/21 Rx clindamycin HCL [Clindamycin HCl] 300 mg PO TID #15 cap 09/25/21 Rx metroNIDAZOLE [metroNIDAZOLE 500mg 500 mg PO TID #15 tab 09/25/21 Rx Tablet] Prescriptions/Medication Reconciliation: New Fluconazole [Diflucan] 150 mg PO DAILY #5 tab metroNIDAZOLE [metroNIDAZOLE 500mg Tablet] 500 mg PO TID #15 tab clindamycin HCL [Clindamycin HCl] 300 mg PO TID #15 cap Continued labetalol 200 mg tablet 200 mg PO BID prenat.vits,beverly,itj-danb-lelrd 1 tab PO DAILY Ferrous Sulfate 325 mg PO DAILY Discontinued miSOPROStoL [Misoprostol] 200 mcg PO BID - Problem Reconciliation Problems Reviewed?: Yes
== END 2021-09-25 09:53 | disposition home or self-care (01) | DRG 769 ==
LOC: OBOUT 02:03 → OB 09:35
PROVIDERS: Admitting Provider Nurse Practitioner Obstetrics & Gynecology; PCP Family Medicine; Visit Provider Nurse Practitioner Obstetrics & Gynecology
PROC: 10D17ZZ Extraction of Products of Conception, Retained, Via Natural or Artificial Opening (ICD-10-PCS; CPT 58120; principal; 2021-09-23 13:55)
DX: O73.1 Retained portions of placenta and membranes, without hemorrhage (principal); O86.12 Endometritis following delivery
CPT/HCPCS: 59160; 36415; 76830; 80048; 80170; 81001; 83605; 85007; 85014; 85018; 85025; 85048; 85049; 85378; 87070; 87075; 87077; 87086; 87088; 87186; 87205; C9803; J2405; U0003; U0005

== ENCOUNTER → 2023-01-03 12:46 | Outpatient (CLI) | payer OTHER, SELFPAY ==
[2023-01-03 14:13] LABS: HCG,Quantitative 249 mIU/ml (0-5.42)
[2023-01-04 13:02] LABS: Progesterone 16.1 ng/mL (.)
== END ==
PROVIDERS: PCP Family Medicine; Visit Provider Nurse Practitioner Obstetrics & Gynecology
DX: N92.6 Irregular menstruation, unspecified (principal)
CPT/HCPCS: 36415; 84144; 84702

== ENCOUNTER → 2023-01-31 16:33 | Outpatient (CLI) | payer OTHER, SELFPAY ==
[2023-01-31 17:59] LABS: Basophils % 0.3 % (0.1-2.0); Eosinophils # 0.1 K/mm3 (0.0-0.4); Eosinophils % 0.4 % (0.1-12.0); Hemoglobin 12.8 g/dL (12.2-16.2); Lymphocytes # 3.4 K/mm3 (0.7-4.5); Lymphocytes % 26.7 % (10-50); Mean Corpuscular HGB Conc 35.5 g/dL (31.8-35.4); Mean Corpuscular Hemoglobin 30.2 pg (27.0-31.2); Mean Corpuscular Volume 85.1 fl (81-99); Mean Platelet Volume 8.4 fl (7.4-10.4); Monocytes # 0.4 K/mm3 (0.1-1.0); Monocytes % 3.5 % (1.7-9.3); Neutrophils # 8.7 K/mm3 (1.8-7.8); Neutrophils % 69.1 % (37.0-80.0); Platelet Count 250 K/mm3 (142-424); Red Blood Count 4.23 M/mm3 (4.20-5.40); Red Cell Distribution Width 13.6 % (11.5-17.5); White Blood Count 12.6 K/mm3 (4.8-10.8)
[2023-02-02 08:29] LABS: HIV Screen 4th Generation wRfx Non Reactive (Non Reactive); Rubella Antibodies, IgG 2.03 index (Immune >0.99)
[2023-02-02 12:05] LABS: Rapid Plasma Reagin Ab Titer Non Reactive titer (NonRea<1:1)
[2023-02-05 10:19] LABS: Hepatitis B Surface Antigen Negative; Hepatitis C Antibody Non Reactive
== END ==
PROVIDERS: PCP Family Medicine; Visit Provider Nurse Practitioner Obstetrics & Gynecology
DX: Z34.91 Encounter for supervision of normal pregnancy, unspecified, first trimester (principal); Z3A.08 8 weeks gestation of pregnancy
CPT/HCPCS: 36415; 85025; 86593; 86703; 86762; 86850; 87086; 87340; 87380; G0432

== ENCOUNTER → 2023-02-10 09:42 | Outpatient (CLI) | payer OTHER, SELFPAY ==
--- NOTE | 2023-02-10 09:43 | US_ITS ---
PROCEDURE: US OB <= 14 WEEKS FETUS CLINICAL INDICATION: for dates COMPARISON: No exams were available for comparison FINDINGS: Transvaginal sonographic images of the pelvis were obtained. From her last menstrual period she is 9weeks 3days. An intrauterine gestational sac is present with a pole with a crown-rump length of 2.51cm This correlates to a gestational age of 9weeks 2days. heart tones are present with an FHR of 188bpm. Yolk sac is noted. The yolk sac measures 4.6mm. There is a small separation of the chorion possibly consistent with a subchorionic bleed. The right ovary is seen and appears normal. There are multiple small follicles in the right ovary. The left ovary is seen and appears normal. There is a corpus luteum in the left ovary. There is no fluid in the cul-de-sac. IMPRESSION: 1. Viable fetus within the uterine cavity. There is heart rate activity. 2. There appears to be a small subchorionic hemorrhage. 3. Both ovaries are seen and appear normal. 4. The size and dates are congruent with her last menstrual period. 5. Her due date will remain September 12, 2023. Dictated by: Driss Rice MD 02/10/2023 16:56 Driss Rice MD in [place] 02/10/2023 16:56
== END ==
PROVIDERS: PCP Family Medicine; Visit Provider Nurse Practitioner Obstetrics & Gynecology
DX: Z34.91 Encounter for supervision of normal pregnancy, unspecified, first trimester (principal); Z3A.09 9 weeks gestation of pregnancy
CPT/HCPCS: 76801

== ENCOUNTER → 2023-03-29 16:46 | Outpatient (CLI) | payer OTHER, SELFPAY ==
[2023-03-29 19:55] LABS: Alanine Aminotransferase 11 U/L (12-78); Albumin Level 3.9 g/dl (3.5-5.0); Albumin/Globulin Ratio 1.6 (1.1-1.8); Alkaline Phosphatase 58 U/L (38-126); Anion Gap 6.9 mEq/L (5-15); Aspartate Amino Transferase 18 U/L (14-36); Bilirubin,Total 0.4 mg/dl (0.2-1.3); Blood Urea Nitrogen 11 mg/dl (7-17); Calcium 8.7 mg/dl (8.4-10.2); Carbon Dioxide 25 mmol/L (22.0-30.0); Chloride 105 mmol/L (98-107); Estimated Glomerular Filt Rate 152 ml/min (>60); GFR (African American) 183 ML/MIN (>60); Globulin 2.5 g/dL (1.3-3.2); Glucose 81 mg/dl (74-100); Magnesium 1.8 mg/dl (1.6-2.3); Phosphorous 5.1 mg/dl (2.5-4.5); Potassium 3.9 mmoL/L (3.5-5.1); Sodium 133 mmol/L (136-145); Total Protein,Serum 6.4 g/dl (6.3-8.2)
== END ==
PROVIDERS: PCP Family Medicine; Visit Provider Obstetrics & Gynecology
DX: Z3A.16 16 weeks gestation of pregnancy; Z34.92 Encounter for supervision of normal pregnancy, unspecified, second trimester
CPT/HCPCS: 80053; 83735; 84100

== ENCOUNTER 2023-04-25 13:53 | Outpatient (CLI) | payer OTHER, SELFPAY ==
--- NOTE | 2023-04-25 13:58 | US_ITS ---
PROCEDURE: US OB /MATERNAL DETAIL CLINICAL INDICATION: anatomy scan COMPARISON: No exams were available for comparison FINDINGS: Transabdominal sonographic images of the pelvis were obtained. From her established due date she is 19 weeks 6 days. Single viable intrauterine gestation. Cephalic position. Placenta: Posteriorplacenta grade 1. There is an average amount of fluid. The cervix appears satisfactory. Closed and measuring 3.3 cm in length. Complete survey performed and was unremarkable on the submitted images as in PACS. No discrete anomalies identified on survey imaging by technologist. Active fetus. Three-vessel cord with satisfactory umbilical cord insertion. 4- chamber heart noted. Situs, aortic arch, LVOT, RVOT, three-vessel view appear normal. Survey of brain & ventricles Unremarkable. Cerebellum, thalamus, choroid plexus, cisterna magna appear normal. Face and neck survey unremarkable. Profile, nasion, lips and nose appeared normal. Diaphragm and chest views unremarkable. Abdomen: Both kidneys noted and unremarkable. Stomach and bladder noted and satisfactory. Spine: Survey of the spine satisfactory with no anomalies identified nor imaged. Cervical, thoracic, lower spine appear normal. Both arms and legs noted. Amniotic Fluid: Adequate. MVP 4.72 cm. Measurements: Average ultrasound age 20weeks 1day. Estimated due date by ultrasound age 0509/11/2023. Estimated weight 328g BPD = 20weeks 1day HC = 20weeks 1day AC = 20weeks 1day FL = 20weeks 0 days Growth Percentile= 56 Heart Rate = 150bpm Cerebellum = 19weeks 5days Humerus = 20weeks 1day HC/AC is 1.2 FL/BPD is 0.69 FL/AC is 0.22 IMPRESSION: 1. Viable fetus in the cephalic presentation with a posterior placenta grade 1. 2. The fluid is within normal limits. 3. Anatomical scan appears normal. 4. biometry is consistent with a dates. 5. During the exam the heart rate slowed and would suggest follow-up for this arrhythmia. Dictated by: Driss Rice MD 04/25/2023 16:02 Driss Rice MD in [place] 04/25/2023 16:02
== END 2023-04-25 23:59 ==
LOC: RAD 13:54
PROVIDERS: PCP Family Medicine; Visit Provider Obstetrics & Gynecology
DX: Z34.92 Encounter for supervision of normal pregnancy, unspecified, second trimester (principal); Z3A.20 20 weeks gestation of pregnancy
CPT/HCPCS: 76811

== ENCOUNTER 2023-05-30 09:32 | Outpatient (CLI) | payer OTHER, SELFPAY ==
[2023-05-30] MEDS: LACTATED RINGERS 1000ML 1,000 ML 999 ML IV (10:12)
[2023-05-30 10:14] VITALS: BMI 37.2
[2023-05-30 10:23] LABS: Microscopic, Urine URINE MICROSCOPIC (MICROSCOPIC)
[2023-05-30 10:25] VITALS: BP 99/58; PULSE 77; RESP 18; TEMP 37.2; O2SAT 98; BMI 36.2
[2023-05-30 10:28] LABS: Basophils % 0.2 % (0.1-2.0); Eosinophils # 0.2 K/mm3 (0.0-0.4); Eosinophils % 1.5 % (0.1-12.0); Hematocrit 31.9 % (37.0-47.0); Hemoglobin 11.3 g/dL (12.2-16.2); Lymphocytes # 2.4 K/mm3 (0.7-4.5); Lymphocytes % 16.7 % (10-50); Mean Corpuscular HGB Conc 35.3 g/dL (31.8-35.4); Mean Corpuscular Volume 87.9 fl (81-99); Mean Platelet Volume 9.2 fl (7.4-10.4); Monocytes # 0.5 K/mm3 (0.1-1.0); Monocytes % 3.2 % (1.7-9.3); Neutrophils # 11.2 K/mm3 (1.8-7.8); Neutrophils % 78.4 % (37.0-80.0); Platelet Count 210 K/mm3 (142-424); Red Blood Count 3.63 M/mm3 (4.20-5.40); Red Cell Distribution Width 14.3 % (11.5-17.5); White Blood Count 14.3 K/mm3 (4.8-10.8)
[2023-05-30 10:31] LABS: Appearance,Urine CLEAR (Clear); Bilirubin,Urine Negative (Negative); Blood, Urine Negative (Negative); Color,Urine YELLOW (Yellow); Glucose,Urine (UA) Negative (Negative); Ketones,Urine Negative (Negative); Leukocyte Esterase,Urine Negative (Negative); Nitrate,Urine Negative (Negative); PH,Urine 7.5 (5.0-8.5); Protein,Urine Negative (Negative); Urobilinogen,Urine 0.2 EU/dl (0.2)
[2023-05-30 10:35] LABS: Chloride 109 mmol/L (98-107); Potassium 4.4 mmoL/L (3.5-5.1); Sodium 132 mmol/L (136-145)
[2023-05-30 10:38] LABS: Anion Gap 7.4 mEq/L (5-15); Blood Urea Nitrogen 9 mg/dl (7-17); Carbon Dioxide 20 mmol/L (22.0-30.0); Creatinine Clearance Estimated 298 mL/min (50-200); Estimated Glomerular Filt Rate 196 ml/min (>60); GFR (African American) 237 ML/MIN (>60)
[2023-05-30 10:39] LABS: Calcium 8.3 mg/dl (8.4-10.2); Glucose 75 mg/dl (74-100)
[2023-05-30 11:13] LABS: WBC,Urine Occasional #/hpf (0-3)
[2023-05-30 11:14] LABS: Bacteria,Urine Trace /lpf; Mucus,Urine 2+ /lpf
[2023-05-30 13:16] LABS: Benzodiazepines Screen,Urine Negative ng/ml (<200)
[2023-05-30 13:18] LABS: Barbiturates Screen,Urine Negative ng/ml (<200)
[2023-05-30 13:26] LABS: Methadone Screen,Urine Negative ng/ml (<300)
[2023-05-30 13:28] LABS: Opiate Screen,Urine Negative ng/ml (<300)
[2023-05-30 13:29] LABS: Phencyclidine Screen,Urine Negative ng/ml (<25)
[2023-05-30 13:32] LABS: Cannabinoid Screen,Urine Negative ng/ml (<50)
[2023-05-30 13:35] LABS: Cocaine Screen,Urine Negative ng/ml (<300)
[2023-05-30 14:50] LABS: Amphetamine/Metha Screen,Urine Negative ng/ml (<1000)
== END 2023-05-30 11:41 | disposition home or self-care (01) ==
LOC: OBOUT 09:35 → OB 09:36
PROVIDERS: PCP Family Medicine; Visit Provider Nurse Practitioner Obstetrics & Gynecology
DX: O21.9 Vomiting of pregnancy, unspecified (principal); Z3A.25 25 weeks gestation of pregnancy
CPT/HCPCS: 80048; 80307; 81001; 85025; 96365; G0463

== ENCOUNTER 2023-06-06 08:31 | Outpatient (CLI) | payer OTHER, SELFPAY ==
[2023-06-06 08:47] LABS: Basophils % 0.3 % (0.1-2.0); Eosinophils # 0.2 K/mm3 (0.0-0.4); Eosinophils % 1.2 % (0.1-12.0); Hematocrit 32.7 % (37.0-47.0); Hemoglobin 11.3 g/dL (12.2-16.2); Lymphocytes # 2.4 K/mm3 (0.7-4.5); Lymphocytes % 19.1 % (10-50); Mean Corpuscular HGB Conc 34.7 g/dL (31.8-35.4); Mean Corpuscular Hemoglobin 30.8 pg (27.0-31.2); Mean Corpuscular Volume 88.9 fl (81-99); Monocytes # 0.3 K/mm3 (0.1-1.0); Monocytes % 2.6 % (1.7-9.3); Neutrophils # 9.8 K/mm3 (1.8-7.8); Neutrophils % 76.8 % (37.0-80.0); Platelet Count 229 K/mm3 (142-424); Red Blood Count 3.67 M/mm3 (4.20-5.40); Red Cell Distribution Width 14.1 % (11.5-17.5); White Blood Count 12.8 K/mm3 (4.8-10.8)
[2023-06-06 08:55] LABS: Glucose,Fasting 81 mg/dl (74-100)
[2023-06-06 10:47] LABS: Glucose 1 Hour 116 mg/dL (74-100)
== END 2023-06-06 23:59 ==
LOC: LAB 08:32
PROVIDERS: PCP Family Medicine; Visit Provider Nurse Practitioner Obstetrics & Gynecology
DX: O26.892 Other specified pregnancy related conditions, second trimester (principal); Z3A.26 26 weeks gestation of pregnancy
CPT/HCPCS: 36415; 82951; 85025

== ENCOUNTER 2023-07-08 09:19 | Outpatient (CLI) | payer OTHER, SELFPAY ==
--- NOTE | 2023-07-08 09:19 | US_ITS ---
PROCEDURE: US OB BIOPHYSICAL PROFILE CLINICAL INDICATION: LGA COMPARISON: US US OB /MATERNAL DETAIL from 04/25/2023 FINDINGS: Transabdominal sonographic images of the uterus were obtained. From her established due date she is 30weeks 3days. The following parameters are obtained: Viable Fetus in the cephalic presentation with a posterior placenta grade 1. Average ultrasound age is 32weeks 4 days Estimated weight 1,873g, 4 lb 2 oz. Cervix measures 3.9 cm. Measurements: heart Rate = 147bpm BPD = 32weeks 0 days, 84 percentile HC = 31weeks 5days, 47 percentile AC = 32weeks 3days, 92 percentile FL = 31weeks 3days, 64 percentile HC/AC is 1.01 FL/BPD is 0.76 FL/AC is 0.21 87 percentile Amniotic fluid index: 11.78cm, MVP 3.13 cm. Qualitative AFV:2 Breathing movements: 2 Gross Body Movements: 2 Tone: 2 Biophysical profile score: 8 No obvious anomalies evident.Kidneys, bladder, stomach, four-chamber heart, three-vessel cord appear normal. IMPRESSION: 1. Viable fetus in the cephalic presentation with a posterior placenta grade 1. 2. The fluid is within normal limits with an amniotic fluid index of 11.78 cm, MVP 3.13 cm. 3. Biophysical profile 8/8 with good breathing and movement seen. 4. Fetus is currently large for gestational age at 87th percentile. The AC is 2 weeks ahead on its growth. 5. Suggest follow-up growth ultrasound in 4 weeks. Dictated by: Driss Rice MD 07/08/2023 12:56 Driss Rice MD in [place] 07/08/2023 12:56
== END 2023-07-08 23:59 ==
LOC: RAD 09:19
PROVIDERS: PCP Nurse Practitioner Obstetrics & Gynecology; Visit Provider Nurse Practitioner Obstetrics & Gynecology
DX: O36.63X0 Maternal care for excessive fetal growth, third trimester, not applicable or unspecified (principal); Z3A.30 30 weeks gestation of pregnancy
CPT/HCPCS: 76816; 76819

== ENCOUNTER 2023-08-15 09:38 | Outpatient (CLI) | payer OTHER, SELFPAY ==
[2023-08-15 09:48] VITALS: BP 144/80; PULSE 98; RESP 18; TEMP 37.3; O2SAT 97; BMI 39.2
[2023-08-15 09:52] VITALS: BMI 39.2
[2023-08-15 10:09] LABS: Microscopic, Urine URINE MICROSCOPIC (MICROSCOPIC)
[2023-08-15 10:15] LABS: Appearance,Urine CLEAR (Clear); Bilirubin,Urine Negative (Negative); Blood, Urine Negative (Negative); Color,Urine YELLOW (Yellow); Glucose,Urine (UA) Negative (Negative); Ketones,Urine 1+ (Negative); Leukocyte Esterase,Urine 1+ (Negative); Nitrate,Urine Negative (Negative); PH,Urine 7.5 (5.0-8.5); Protein,Urine Negative (Negative); Urobilinogen,Urine 0.2 EU/dl (0.2)
[2023-08-15] MEDS: LACTATED RINGERS 1000ML 1,000 ML 999 ML IV (10:15)
[2023-08-15 10:45] LABS: MANUAL DIFFERENTIAL MANUAL DIFFERENTIAL (MANUAL DIFF)
[2023-08-15 10:54] LABS: Amphetamine/Metha Screen,Urine Negative ng/ml (<1000); Barbiturates Screen,Urine Negative ng/ml (<200)
[2023-08-15 10:54] LABS: Basophils # 0.1 K/mm3 (0-0.2); Basophils % 0.5 % (0.1-2.0); Eosinophils # 0.1 K/mm3 (0.0-0.4); Hematocrit 28.9 % (37.0-47.0); Hemoglobin 9.5 g/dL (12.2-16.2); Lymphocytes # 2.1 K/mm3 (0.7-4.5); Lymphocytes % 19.6 % (10-50); Mean Corpuscular HGB Conc 32.9 g/dL (31.8-35.4); Mean Corpuscular Hemoglobin 27.8 pg (27.0-31.2); Mean Corpuscular Volume 84.3 fl (81-99); Mean Platelet Volume 10.3 fl (7.4-10.4); Monocytes # 0.3 K/mm3 (0.1-1.0); Monocytes % 2.6 % (1.7-9.3); Neutrophils # 8.2 K/mm3 (1.8-7.8); Neutrophils % 76.4 % (37.0-80.0); Platelet Count 215 K/mm3 (142-424); Red Blood Count 3.43 M/mm3 (4.20-5.40); Red Cell Distribution Width 14.7 % (11.5-17.5); White Blood Count 10.8 K/mm3 (4.8-10.8)
[2023-08-15 10:55] LABS: Cannabinoid Screen,Urine Negative ng/ml (<50)
[2023-08-15 10:56] LABS: Alanine Aminotransferase 14 U/L (12-78); Albumin Level 3.1 g/dl (3.5-5.0); Albumin/Globulin Ratio 1.1 (1.1-1.8); Alkaline Phosphatase 161 U/L (38-126); Anion Gap 7.6 mEq/L (5-15); Aspartate Amino Transferase 23 U/L (14-36); Bilirubin,Total 0.7 mg/dl (0.2-1.3); Blood Urea Nitrogen 8 mg/dl (7-17); Calcium 8.8 mg/dl (8.4-10.2); Carbon Dioxide 21 mmol/L (22.0-30.0); Chloride 110 mmol/L (98-107); Creatinine Clearance Estimated 323 mL/min (50-200); Estimated Glomerular Filt Rate 196 ml/min (>60); GFR (African American) 237 ML/MIN (>60); Globulin 2.8 g/dL (1.3-3.2); Glucose 95 mg/dl (74-100); Potassium 3.6 mmoL/L (3.5-5.1); Sodium 135 mmol/L (136-145); Total Protein,Serum 5.9 g/dl (6.3-8.2)
[2023-08-15 10:56] LABS: Cocaine Screen,Urine Negative ng/ml (<300)
[2023-08-15 10:57] LABS: Opiate Screen,Urine Negative ng/ml (<300)
[2023-08-15 10:58] LABS: Phencyclidine Screen,Urine Negative ng/ml (<25)
[2023-08-15 11:09] LABS: Bacteria,Urine Trace /lpf; Squamous Epithelial Cell,Urine 20-50 #/hpf (0-5)
[2023-08-15 12:19] LABS: Eosinophils % 1 % (0-3); Lymphocytes % 17 % (10-50); Monocytes % 2 % (2-9); Neutrophils % 80 % (42-76); Platelet Estimate Normal; RBC Morphology Normal; Total Cells Counted 100
[2023-08-15 12:36] LABS: Methadone Screen,Urine Negative ng/ml (<300)
[2023-08-15 12:37] LABS: Benzodiazepines Screen,Urine Negative ng/ml (<200)
== END 2023-08-15 12:15 | disposition home or self-care (01) ==
LOC: OBOUT 09:41 → OB 09:41
PROVIDERS: PCP Family Medicine; Visit Provider Nurse Practitioner Obstetrics & Gynecology
DX: O26.893 Other specified pregnancy related conditions, third trimester (principal); R10.2 Pelvic and perineal pain; N39.0 Urinary tract infection, site not specified; B95.1 Streptococcus, group B, as the cause of diseases classified elsewhere; B96.89 Other specified bacterial agents as the cause of diseases classified elsewhere; R51.9 Headache, unspecified; Z3A.36 36 weeks gestation of pregnancy
CPT/HCPCS: 80053; 80307; 81001; 85007; 85014; 85018; 85048; 85049; 87086; G0463

== ENCOUNTER 2023-08-18 12:26 | Outpatient (CLI) | payer OTHER, SELFPAY ==
--- NOTE | 2023-08-18 12:27 | US_ITS ---
PROCEDURE: US OB BIOPHYSICAL PROFILE CLINICAL INDICATION: lga COMPARISON: US US OB BIOPHYSICAL PROFILE from 07/08/2023 FINDINGS: Transabdominal sonographic images of the uterus were obtained. From her established due date she is 36weeks 3days. The following parameters are obtained: Viable Fetus in the cephalic presentation with a posterior placenta grade 2. Average ultrasound age is 37weeks 3days Estimated weight 3,384g Cervix measures 4.5 cm. Measurements: heart Rate = 142bpm BPD = 37weeks 6days, 90 percentile HC = 37weeks 2days, 41 percentile AC = 39weeks 5days, > 98 percentile FL = 34weeks 5days, 10 percent HC/AC is 0.92 FL/BPD is 0.73 FL/AC is 0.19 90 percentile Amniotic fluid index: 10.68cm, MVP 3.96 cm. Qualitative AFV:2 Breathing movements: 2 Gross Body Movements: 2 Tone: 2 Biophysical profile score: 8 No obvious anomalies evident.Kidneys, profile, bladder, four-chamber heart, three-vessel cord appear normal. IMPRESSION: 1. Viable fetus in the cephalic presentation with a posterior placenta grade 2. 2. The fluid is within normal limits with an amniotic fluid index of 10.68 cm, MVP 3.96 cm. 3. Biophysical profile is 8/8 with good breathing movement and movement seen. 4. There continues to be accelerated growth with the fetus currently 90th percentile. The abdominal circumference is greater than the 98th percentile. 5. Limited anatomical scan appears normal. Dictated by: Driss Rice MD 08/19/2023 08:05 Driss Rice MD in [place] 08/19/2023 08:05
== END 2023-08-18 23:59 | disposition home or self-care (01) ==
LOC: RAD 12:27
PROVIDERS: PCP Family Medicine; Visit Provider Nurse Practitioner Obstetrics & Gynecology
DX: O36.60X0 Maternal care for excessive fetal growth, unspecified trimester, not applicable or unspecified (principal); O26.893 Other specified pregnancy related conditions, third trimester; Z3A.36 36 weeks gestation of pregnancy
CPT/HCPCS: 76816; 76819

== ENCOUNTER 2023-08-22 16:34 | Outpatient (CLI) | payer OTHER, SELFPAY | END 2023-08-22 23:59 | disposition home or self-care (01) | LOC: LAB.DROPOF 16:35 | PROVIDERS: PCP Nurse Practitioner Obstetrics & Gynecology; Visit Provider Nurse Practitioner Obstetrics & Gynecology | DX: O26.893 Other specified pregnancy related conditions, third trimester (principal); Z3A.37 37 weeks gestation of pregnancy; B95.1 Streptococcus, group B, as the cause of diseases classified elsewhere | CPT/HCPCS: 86403 ==

== ENCOUNTER 2023-08-26 16:18 | Outpatient (CLI) | payer OTHER, SELFPAY ==
[2023-08-26 16:45] VITALS: BMI 40.6
[2023-08-26 17:00] VITALS: BP 117/74; PULSE 88; RESP 19; TEMP 36.8; O2SAT 97; BMI 40.6
[2023-08-26 17:05] LABS: Microscopic, Urine URINE MICROSCOPIC (MICROSCOPIC)
[2023-08-26 17:06] LABS: Appearance,Urine CLEAR (Clear); Bilirubin,Urine Negative (Negative); Blood, Urine TRACE-I (Negative); Color,Urine YELLOW (Yellow); Glucose,Urine (UA) Negative (Negative); Ketones,Urine TRACE (Negative); Leukocyte Esterase,Urine 2+ (Negative); Nitrate,Urine Negative (Negative); Protein,Urine Negative (Negative); Specific Gravity, Urine >= 1.030 (1.005-1.030); Urobilinogen,Urine 0.2 EU/dl (0.2)
[2023-08-26 17:45] LABS: Bacteria,Urine 1+ /lpf; WBC,Urine 20-50 #/hpf (0-3)
[2023-08-26 17:53] LABS: Benzodiazepines Screen,Urine Negative ng/ml (<200)
[2023-08-26 17:54] LABS: Amphetamine/Metha Screen,Urine Negative ng/ml (<1000)
[2023-08-26 17:55] LABS: Barbiturates Screen,Urine Negative ng/ml (<200); Cannabinoid Screen,Urine Negative ng/ml (<50)
[2023-08-26 17:56] LABS: Cocaine Screen,Urine Negative ng/ml (<300); Methadone Screen,Urine Negative ng/ml (<300)
[2023-08-26 17:57] LABS: Opiate Screen,Urine Negative ng/ml (<300)
[2023-08-26 17:58] LABS: Phencyclidine Screen,Urine Negative ng/ml (<25)
== END 2023-08-26 19:39 | disposition home or self-care (01) ==
LOC: OBOUT 16:20 → OB 16:21
PROVIDERS: PCP Family Medicine; Visit Provider Obstetrics & Gynecology
DX: O60.03 Preterm labor without delivery, third trimester (principal); Z3A.37 37 weeks gestation of pregnancy
CPT/HCPCS: 80307; 81001; 87086; G0463

== ENCOUNTER 2023-09-03 09:22 | Outpatient (CLI) | payer OTHER, SELFPAY ==
[2023-09-03 09:34] VITALS: BMI 41.3
[2023-09-03 09:38] VITALS: BP 144/76; PULSE 74; RESP 16; TEMP 37.1; O2SAT 98; BMI 41.3
[2023-09-03 09:53] LABS: Microscopic, Urine URINE MICROSCOPIC (MICROSCOPIC)
[2023-09-03 09:55] LABS: Appearance,Urine SL CLOUDY (Clear); Blood, Urine Negative (Negative); Color,Urine YELLOW (Yellow); Glucose,Urine (UA) Negative (Negative); Ketones,Urine 1+ (Negative); Leukocyte Esterase,Urine 1+ (Negative); Nitrate,Urine Negative (Negative); Protein,Urine TRACE (Negative); Specific Gravity, Urine 1.025 (1.005-1.030); Urobilinogen,Urine 0.2 EU/dl (0.2)
[2023-09-03 10:03] LABS: Bilirubin,Urine 1+ (Negative); Fetal Membrane Rupture (Rapid) Negative (Negative)
[2023-09-03 10:08] LABS: Bacteria,Urine 1+ /lpf; Mucus,Urine Trace /lpf
[2023-09-03 10:24] LABS: Benzodiazepines Screen,Urine Negative ng/ml (<200)
[2023-09-03 10:25] LABS: Amphetamine/Metha Screen,Urine Negative ng/ml (<1000); Barbiturates Screen,Urine Negative ng/ml (<200)
[2023-09-03 10:26] LABS: Cannabinoid Screen,Urine Negative ng/ml (<50); Methadone Screen,Urine Negative ng/ml (<300)
[2023-09-03 10:27] LABS: Cocaine Screen,Urine Negative ng/ml (<300)
[2023-09-03 10:28] LABS: Opiate Screen,Urine Negative ng/ml (<300)
[2023-09-03 11:18] LABS: Phencyclidine Screen,Urine Negative ng/ml (<25)
== END 2023-09-03 10:50 | disposition home or self-care (01) ==
LOC: OBOUT 09:25 → OB 09:25
PROVIDERS: PCP Family Medicine; Visit Provider Obstetrics & Gynecology
DX: O26.893 Other specified pregnancy related conditions, third trimester (principal); Z3A.38 38 weeks gestation of pregnancy
CPT/HCPCS: 80307; 81001; 84112; 87086; G0463

== ENCOUNTER 2023-09-05 04:57 | Inpatient (IN) | payer OTHER, SELFPAY ==
--- OUTSIDE RECORDS SUMMARY | 2023-09-05 05:02 | XMS_ITS | Continuity of Care Document ---
Author Name Unknown Organization [facility] Address [address] [place] [address] Phone Care Team Providers Care Environmental Project Manager Name Role Phone Armando Monreal MD Unavailable [...] or upper arm 3 MG - Active prednisolone acetate 1 % eye drops,suspension instill 1 Drop by Ophthalmic route 3 times every day into the right eye - No Longer Active THIS REPLACES THE DUREZOL Durezol 0.05 % eye drops instill 1 drop by ophthalmic route 3 times a day into the right eye - No Longer Active ok to sub Difluprednate Zoloft 100 mg tablet take 1 tablet [...] EST Corneal Topography With I And R OFFICE/OUTPATIENT VISIT, EST Post Op Follow Up [...] Copied on Encounter OFFICE/OUTPA TIENT VISIT, EST, N[facility]h [facility], [address] [facility], [place], [address], [place] tel:[phone] [facility] s/p DALK OD (chief complaint) Corneal transplant statusDry eye syndrome of bilateral lacrimal glands 2 [facility]. [address] [place] [address] Road, [address], [place], [place], [address]. tel:[phone] Referring Provider: Yesy Eid, [address], [place], [address]. tel:[phone] [facility], [address] [place], [address], [place] tel:[phone] [facility] No Information 2 [facility]. [address] [place] [address] Road, [address], [place], [place], [address]. tel:[phone] [facility], [address] [place], [address], [place] tel:[phone] [facility] No Information 2 [facility]. [address] [place] [address], [address], [place], [place], [address]. tel:[phone] OFFICE/OUTPA TIENT VISIT, EST, Low [facility], [address] [place], [address], [place] tel:[phone] [facility] 4-6 month f/u (chief complaint) Irregular astigmatism, right eyeCorneal transplant statusPresenc e of intraocular lens 1 [facility]. [address] [place] [address], [address], [place], [place], [address]. tel:[phone] Referring Provider: Yesy Eid, [address], [place], [address]. tel:[phone] OFFICE/OUTPA TIENT VISIT, EST, Low [facility], [address] [place], [address], [place] tel:[phone] [facility] blurry vision follow up (chief complaint) Corneal transplant statusVitreou s degeneration of right eyePhotopsia of right eyeHeadache, unspecifiedDr y eye syndrome of bilateral lacrimal glands 1 Radha Landa. [address] [place], [place], [id number]. tel:[phone] Referring Provider: No Ref Doc No Referring Doc. OFFICE/OUTPA TIENT VISIT, EST [facility], [address] [place], [address], tel:[phone] [facility] 4 mo corneal ck (chief complaint) Dry eye syndrome of bilateral lacrimal glandsCorneal transplant rejectionCorn eal transplant statusPresenc e of intraocular lens Oct-3 0-202 0 [facility]. [address] [place] [address], [address], [place], [place], [address]. tel:[phone] Referring Provider: Armando Ervin, [address] [place] [address] [address], [place], [address]. tel:[phone] OFFICE/OUTPA TIENT VISIT, EST [facility], [address] [place], [place], [facility], tel:[phone] [facility] 3-4 mo corneal follow up (chief complaint) Corneal transplant statusDry eye of right sideIrregular astigmatism, right eye Akshat-0 9- 0 [facility]. [address] [place] [address], [address], [place], [place], [address]. tel:[phone] Referring Provider: Armando Ervin, [address] [place] [address] [address], [place], [address]. tel:[phone] OFFICE/OUTPA TIENT VISIT, EST [facility], [address] [place], [place], [facility], [place] tel:[phone] [facility] 5 mo corneal f/u (chief complaint) Corneal transplant statusPresenc e of intraocular lensDry eye syndrome of bilateral lacrimal glands Oct-0 201 9 [facility]. [address] [place] [address], [address], [place], [place], [address]. tel:[phone] Referring Provider: Armando Ervin, [address] [place] [address] [address], [place], [address]. tel:[phone] OFFICE/OUTPA TIENT VISIT, EST [facility], [address] [place], [address], [place] tel:[phone] [facility] 4 month glaucoma follow up (chief complaint) At low risk for open-angle glaucoma in both eyesCorneal transplant statusPresenc e of intraocular lens 9 Tati Garcia. [address] [place], [place], [address]. [phone] Referring Provider: Radha Wlash, [address] [place], [address]. [phone] OFFICE/OUTPA TIENT VISIT, EST [facility], [address] [place], [address], [place] tel:[phone] [facility] 4 month cornea follow up (chief complaint) Corneal transplant statusPresenc e of intraocular lensDry eye syndrome of bilateral lacrimal glands 9 Rah Roberts. [address] [place] [address] Road, [address], [place], [place], [address]. tel:[phone] Referring Provider: Armando Ervin, [address] [place] [address] Road [address], [place], [address]. tel:[phone] OFFICE/OUTPA TIENT VISIT, EST [facility], [address] [place], [address], [place] tel:[phone] [facility] 3 month glaucoma follow up (chief complaint) At low risk for open-angle glaucoma in both eyes 9 Juancarmine Naqvissica. [address] [place], [place], [address]. [phone] Referring Provider: No Ref Doc No Referring Doc. OFFICE/OUTPA TIENT VISIT, EST [facility], [address] [place], [address], [place] [phone] [facility] 3 month cornea follow up (chief complaint) Corneal transplant status 9 Rah Roberts. [address] [place] [address] Road, [address], [place], [place], [address]. tel:[phone] Other Provider: Yesy Eid, [address] [place], [address]. tel:[phone] ng Provider: No Ref Doc No Referring Doc. OFFICE/OUTPA TIENT VISIT, EST [facility], [address] [place], [address], [place] tel:[phone] [facility] glaucoma consult per [facility] (chief complaint) At low risk for open-angle glaucoma in both eyesPresence of intraocular lensCorneal transplant status 8 Tati Garcia. [address] [place], [place], [address]. tel:[phone] Referring Provider: No Ref Doc No Referring Doc. OFFICE/OUTPA TIENT VISIT, EST [facility], [address] [place], [address], [place] tel:[phone] [facility] 2 month cornea follow up (chief complaint) Corneal transplant statusDry eye of right sidePseudopha malou Oct-0 8 [facility]. [address] [place] [address], [address], [place], [place], [address]. tel:[phone] Referring Provider: No Ref Doc No Referring Doc. OFFICE/OUTPA TIENT VISIT, EST [facility], [address] [place], [address], [place] tel:[phone] [facility] cornea follow up (chief complaint) Corneal transplant rejectionCorn eal transplant status 8 Rio Dean. [address] [place], [place], [address]. tel:[phone] Referring Provider: No Ref Doc No Referring Doc. [facility], [address] [place], [address], [place] tel:[phone] [facility] 4-6 wk Cornea ck (chief complaint) Corneal transplant statusCorneal transplant rejectionDry eye syndrome of bilateral lacrimal glandsPseudop hakia 8 [facility]. [address] [place] [address], [address], [place], [place], [address]. tel:[phone] Referring Provider: No Ref Doc No Referring Doc. OFFICE/OUTPA TIENT VISIT, EST [facility], [address] [place], [address], tel:[phone] [facility] [place] [facility] cornea follow up (chief complaint) Corneal transplant statusDry eye syndrome of bilateral lacrimal glandsPseudop hakiaCorneal transplant rejection 8 [facility]. [address] [place] [address], [address], [place], [place], [address]. tel:[phone] Referring Provider: No Ref Doc No Referring Doc. OFFICE/OUTPA TIENT VISIT, EST [facility], [address] [place], [place], [facility], tel:[phone] [facility] 3-4 mo Cornea ck (chief complaint) Dry eye of right sideCorneal transplant statusBlurry vision, right eyePseudophak ia 8 [facility]. [address] [place] [address], [place] [address], [place], [place], [address]. tel:[phone] Referring Provider: No Ref Doc No Referring Doc. OFFICE/OUTPA TIENT VISIT, EST [facility], [address] [place], [facility], tel:[phone] [facility] headaches (chief complaint) Corneal transplant statusDry eye of right sidePseudopha kiaPersistent headaches 8 Cristobal Healiq. [address] [place], [place], [id number], [place]. tel:[phone] Referring Provider: No Ref Doc No Referring Doc. OFFICE/OUTPA TIENT VISIT, EST [facility], [address] [place], [address], [place] tel:[phone] [facility] 5 mo cornea fu (chief complaint) Corneal transplant statusDry eye of right sidePseudopha malou 8 [facility]. [address] [place] [address], [address], [place], [place], [address]. tel:[phone] Referring Provider: No Ref Doc No Referring Doc. OFFICE/OUTPA TIENT VISIT, EST [facility], [address] [place], [address], [place] tel:[phone] [facility] 3-4 mo check (chief complaint) Corneal transplant statusPseudop hakia [facility]. [address] [place] [address], [address], [place], [place], [address]. tel:[phone] Referring Provider: Armando Ervin, [address] [place] [address] [address], [place], [address]. tel:[phone] OFFICE/OUTPA TIENT VISIT, EST [facility], [address] [place], [address], [place] tel:[phone] [facility] 3 MO CORNEA FU (chief complaint) Corneal transplant statusDry eye of right side [facility]. [address] [place] [address], [address], [place], [place], [address]. tel:[phone] Referring Provider: Yesy Eid, [address] [place], [address]. tel:[phone] OFFICE/OUTPA TIENT VISIT, EST [facility], [address] [place], [address], [place] tel:[phone] [facility] cornea check (chief complaint) Corneal transplant statusPseudop hakiaDry eye of right side 7 [facility]. [address] [place] [address], [address], [place], [place], [address]. tel:[phone] Referring Provider: Yesy Eid, [address], [place], [address]. tel:[phone] OFFICE/OUTPA TIENT VISIT, EST [facility], [address] [place], [address], [place] tel:[phone] [facility] [place] pain (chief complaint) Corneal transplant statusPhotops ia of right eyeBlurry vision, right eye 7 Jaya Riverat. [address], [address], [place], [address], [place]. tel:[phone] Referring Provider: Yesy Eid, [address], [place], [address]. tel:[phone] [facility], [address] [place], [address], [place] tel:[phone] [facility] [place] Follow Up of 4-6 Yag (chief complaint) Corneal transplant statusPseudop hakiaEncntr for f/u exam aft trtmt for cond oth than malig neoplm 6 No Information Referring Provider: Yesy Eid, [address] [place], [address]. tel:[phone] [facility], [address] [place], [address], [place] tel:[phone] [facility] Encntr for f/u exam aft trtmt for cond oth than malig neoplm 6 No Information Referring Provider: eYsy Eid, [address], [place], [address]. [phone] [facility], [address] [place], [address], [place] tel:[phone] [facility] Other secondary cataract, right eye 6 [facility]. [address] [place] [address], [address], [place], [place], [address]. tel:[phone] Referring Provider: Yesy Eid, [address], [place], [address]. tel:[phone] OFFICE/OUTPA TIENT VISIT, EST [facility], [address] [place], [address], [place] tel:[phone] [facility] Other secondary cataract, right eye 6 [facility]. [address] [place] [address], [address], [place], [place], [address]. tel:[phone] Referring Provider: Yesy Eid, [address] [place], [address]. tel:[phone] [facility] Physician s, [address] [place], [address], [place] tel:[phone] [facility] Encntr for f/u exam aft trtmt for cond oth than malig neoplm 6 Rio Dean. [address] [place], [place], [address]. tel:[phone] Referring Provider: Yesy Eid, [address] [place], [address]. tel:[phone] [facility] Physician s, [address] [place], [address], [place] tel:[phone] [facility] Presence of intraocular lens 6 No Information Referring Provider: Yesy Eid, [address] [place], [address]. tel:[phone] [facility], [address] [place], [address], [place] tel:[phone] [facility] Other age-related cataractAge-r elated nuclear cataract, right eyeIrregular astigmatism, right eye [facility]. [address] [place] [address], [address], [place], [place], [address]. tel:[phone] Referring Provider: Yesy Eid, [address] [place], [address]. tel:[phone] OFFICE/OUTPA TIENT VISIT, EST [facility], [address] [place], [address], [place] tel:[phone] [facility] cataract evaluation (chief complaint) Corneal transplant statusPosteri or subcapsular polar age-related cataract, right eye [facility]. [address] [place] [address], [address], [place], [place], [address]. tel:[phone] Referring Provider: Yesy Eid, [address], [place], [address]. tel:[phone] OFFICE/OUTPA TIENT VISIT, EST [facility], [address] [place], [address], [place] tel:[phone] [facility] pain OD (chief complaint) Corneal transplant statusPosteri or subcapsular polar age-related cataract, right eye Apr-2 6 [facility]. [address] [place] [address], [address], [place], [place], [address]. tel:[phone] Referring Provider: Yeys Eid, [address], [place], [address]. tel:[phone] OFFICE/OUTPA TIENT VISIT, EST [facility], [address] [place], [address], [place] tel:[phone] [facility] cornea follow up (chief complaint) Corneal transplant statusRegular astigmatism, right eye Apr-1 6 [facility]. [address] [place] [address], [address], [place], [place], [address]. tel:[phone] Referring Provider: Yesy Eid, [address], [place], [address]. tel:[phone] OFFICE/OUTPA TIENT VISIT, EST [facility], [address] [place], [address], [place] tel:[phone] [facility] 2 WEEK FU DALK OD (chief complaint) Corneal transplant statusPosteri or subcapsular polar age-related cataract, right eye Mar-0 6 [facility]. [address] [place] [address], [address], [place], [place], [address]. tel:[phone] Referring Provider: Yesy Eid, [address], [place], [address]. tel:[phone] OFFICE/OUTPA TIENT VISIT, EST [facility], [address] [place], [address], [place] tel:[phone] [facility] redness (chief complaint) Corneal transplant status 6 No Information Referring Provider: Yesy Eid, [address] [place], [address]. tel:[phone] OFFICE/OUTPA TIENT VISIT, EST [facility], [address] [place], [address], [place] tel:[phone] [facility] Urgent (chief complaint) Corneal transplant status 6 Riooscar Dean. [address] [place], [place], [address]. tel:[phone] Referring Provider: Yesy Eid, [address] [place], [address]. tel:[phone] OFFICE/OUTPA TIENT VISIT, EST [facility], [address] [place], [address], [place] tel:[phone] [facility] Urgent possible loose stitch od (chief complaint) Corneal transplant status No Information Referring Provider: Yesy Eid, [address] [place], [address]. tel:[phone] OFFICE/OUTPA TIENT VISIT, EST [facility], [address] [place], [address], [place] tel:[phone] [facility] 1 mo check (chief complaint) Corneal transplant statusPosteri or subcapsular polar age-related cataract, right eye 5 Rio Dean. [address] [place], [place], [address]. tel:[phone] Referring Provider: Yesy Eid, [address] [place], [address]. tel:[phone] OFFICE/OUTPA TIENT VISIT, EST [facility], [address] [place], [address], [place] tel:[phone] [facility] Urgent possible loose suture (chief complaint) Corneal transplant status Oct-0 5-201 5 Rio Dean. [address] [place], [place], [address]. tel:[phone] Referring Provider: Yesy Eid, [address] [place], [address]. tel:[phone] OFFICE/OUTPA TIENT VISIT, EST [facility], [address] [place], [address], [place] tel:[phone] [facility] urgent- pain, possible suture broken (chief complaint) No Information Sep-0 8- 5 Rio Dean. [address] [place], [place], [address]. tel:[phone] Referring Provider: Yesy Eid, [address] [place], [address]. tel:[phone] OFFICE/OUTPA TIENT VISIT, EST [facility], [address] [place], [place], [facility], [place] tel:[phone] [facility] cornea follow up (chief complaint) No Information 5 [facility]. [address] [facility], [address], [place], [place], [address]. tel:[phone] Referring Provider: Yesy Eid, [address] [place], [address]. tel:[phone] OFFICE/OUTPA TIENT VISIT, EST [facility], [address] [place], [address], [place] tel:[phone] [facility] Cornea Follow Up (chief complaint) No Information 0 5 [facility]. [address] [facility], [address], [place], [place], [address]. tel:[phone] Referring Provider: Yesy Eid, [address], [place], [address]. tel:[phone] OFFICE/OUTPA TIENT VISIT, EST [facility], [address] [place], [address], [place] tel:[phone] [facility] cornea follow up (chief complaint) No Information 5 [facility]. [address] [place] [address] Road, [address], [place], [place], [address]. tel:[phone] Referring Provider: Yesy Eid, [address] [place], [address]. tel:[phone] OFFICE/OUTPA TIENT VISIT, EST [facility], [address] [place], [address], tel:[phone] RON[facility] urgent pain od x 2 days (chief complaint) No Information 5 No Information Referring Provider: Yesy Eid, [address] [place], [address]. tel:[phone] OFFICE/OUTPA TIENT VISIT, EST [facility], [address] [place], [address], tel:[phone] AB[facility] [place] [facility] 2 mo fu s/p dalk od 03/27/14 (chief complaint) No Information Sep- 5 [facility]. [address] [place] [address], [address], [place], [place], [address]. tel:[phone] Referring Provider: Yesy Eid, [address] [place], [address]. tel:[phone] OFFICE/OUTPA TIENT VISIT, EST [facility], [address] [place], [address], [place] tel:[phone] [facility] [place] cornea follow up (chief complaint) No Information 3 0- 5 [facility]. [address] [facility], [address], [place], [place], [address]. tel:[phone] Referring Provider: Yesy Eid, [address] [place], [address]. tel:[phone] [facility], [address] [place], [address], [place] tel:[phone] [facility] No Information 5 [facility]. [address], [address], [place], [place], [address]. tel:[phone] Referring Provider: Yesy Eid, [address], [place], [address]. tel:[phone] [facility], [address] [place], [address], [place] tel:[phone] [facility] No Information 5 No Information Referring Provider: Yesy Eid, [address], [place], [address]. tel:[phone] [facility], [address] [place], [address], [place] tel:[phone] [facility] [place] No Information 5 [facility]. [address], [address], [place], [place], [address]. tel:[phone] Referring Provider: Yesy Eid, [address], [place], [address]. tel:[phone] [facility], [address] [place], [address], [place] tel:[phone] [facility] No Information 5 [facility]. [address], [address], [place], [place], [address]. tel:[phone] Referring Provider: Yesy Eid, [address], [place], [address]. tel:[phone] [facility], [address] [place], [address], [place] tel:[phone] [facility] No Information 5 Rio Dean. [address] [place], [place], [id number]. tel:[phone] Referring Provider: Yesy Eid, [address], [place], [address]. tel:[phone] [facility], [address] [place], [address], [place] tel:[phone] [facility] vision is improved OD (chief complaint)+ Dryness after gtts OD (chief complaint)D ur- QID ,rest-BID, Comb-QD-OD OD (chief complaint) No Information 5 Rio Dean. [address] [place], [place], [address]. tel:[phone] Referring Provider: Yesy Eid, [address] [place], [address]. tel:[phone] [facility], [address] [place], [address], [place] tel:[phone] [facility] No Information Mar- 4 [facility]. [address] [place] [address], [address], [place], [place], [address]. tel:[phone] Referring Provider: Yesy Eid, [address] [place], [address]. tel:[phone] [facility], [address] [place], [address], [place] tel:[phone] ABELARDO Aviles Pt doing okay pain 2 on a 1-10 scale OD (chief complaint)D ur-QID, rest-BID, ltx-QHS-OD OD (chief complaint) No Information 4 [facility]. [address] [place] [address], [address], [place], [place], [address]. tel:[phone] Referring Provider: Yesy Eid, [address] [place], [address]. tel:[phone] [facility], [address] [place], [address], [place] tel:[phone] ABELARDO Aviles No Information Mar-2 3 4 [facility]. [address] [place] [address], [address], [place], [place], [address]. tel:[phone] Referring Provider: Yesy Eid, [address] [place], [address]. tel:[phone] [facility], [address] [place], [address], [place] tel:[phone] [facility] [place] No Information 4 [facility]. [address] [place], [place], [id number], [place]. tel:[phone] Referring Provider: Armando Ervin, [address] [place] [address] [address], [place], [address]. tel:[phone] [facility], [address] [place], [address], [place] tel:[phone] [facility] No Information 4 Surjit Oliveira. [address] [place], [place], [id number], [place]. tel:[phone] Referring Provider: Yesy Eid, [address] [place], [address]. tel:[phone] [facility], [address] [place], [address], [place] tel:[phone] [facility] no complaints OD (chief complaint)d ur qid, ltx osmin qhs, rest bid, levo bid OD (chief complaint) No Information 4 Rah Roberts. [address] [place] [address], [address], [place], [place], [address]. tel:[phone] Referring Provider: Yesy Eid, [address] [place], [address]. tel:[phone] [facility], [address] [place], [address], [place] tel:[phone] [facility] No Information 4 Rah Roberts. [address] [place] [address], [address], [place], [place], [address]. tel:[phone] Referring Provider: Yesy Eid, [address] [place], [address]. tel:[phone] [facility], [address] [facility] [place], [address], [place] tel:[phone] [facility] No Information 0- 4 [facility]. [address] [facility], [address], [place], [place], [address]. tel:[phone] Referring Provider: Yesy Eid, [address] [place], [address]. tel:[phone] [facility], [address], [address], [place] tel:[phone] [facility] No Information Mar- 0- 4 Surjit Oliveira. [address] [place], [place], [id number], [place]. tel:[phone] Referring Provider: Yesy Eid, [address] [place], [address]. tel:[phone] OFFICE/OUTPA TIENT VISIT, EST [facility] Physician s, [address], [address], [place] tel:[phone] [facility] pain (chief complaint) No Information Dec-0 3 4 No Information Referring Provider: Yesy Eid, [address] [place], [address]. tel:[phone] OFFICE/OUTPA TIENT VISIT, EST CVP Physician s, [address], [address], [place] tel:[phone] [facility] cornea follow up (chief complaint) No Information Dec-2 4 [facility]. [address] [place] [address], [address], [place], [place], [address]. tel:[phone] Referring Provider: Yesy Eid, [address] [place], [address]. tel:[phone] OFFICE/OUTPA TIENT VISIT, EST CVP Physician s, [address], [address], [place] tel:[phone] [facility] Contact lens evaluation (chief complaint) No Information 4 [place] Dean. [address] [place], [place], [id number]. tel:[phone] Referring Provider: Yesy Eid, [address], [place], [address]. tel:[phone] OFFICE/OUTPA TIENT VISIT, EST CVP Physician s, [address] [place], [address], tel:[phone] [facility] cornea follow up (chief complaint) No Information 4 [facility]. [address] [place] [address], [address], [place], [place], [id number]. tel:[phone] Referring Provider: Yesy Eid, [address], [place], [address]. tel:[phone] OFFICE/OUTPA TIENT VISIT, EST CVP Physician s, [address] [place], [place], [facility], tel:[phone] [facility] [place] cornea follow up (chief complaint) No Information 4 [facility]. [address] [place] [address], [address], [place], [place], [address]. tel:[phone] Referring Provider: Yesy Eid, [address] [place], [address]. tel:[phone] OFFICE/OUTPA TIENT VISIT, EST CVP Physician s, [address] [place], [address], [place] tel:[phone] [facility] [place] cornea follow up (chief complaint) No Information 4 [facility]. [address] [place] [address], [address], [place], [place], [address]. tel:[phone] Referring Provider: Yesy Eid, [address] [place], [address]. tel:[phone] OFFICE/OUTPA TIENT VISIT, EST CVP Physician s, [address] [place], [address], tel:[phone] [facility] No Information 4 [place] [facility]. [address] [place] [address] Road, [address], [place], [place], [address]. tel:[phone] Referring Provider: Yesy Eid, [address], [place], [address]. tel:[phone] OFFICE/OUTPA TIENT VISIT, EST CVP Physician s, [address] [place], [address], [place] tel: [phone] [facility] No Information 3 [place] [facility]. [address] [place] [address] Road, [address], [place], [place], [address]. tel:[phone] Referring Provider: Yesy Eid, [address] [place], [address]. tel:[phone] OFFICE/OUTPA TIENT VISIT, EST CVP Physician s, [address] [place], [address], [place] tel:[phone] [facility] No Information 3 [place] [facility]. [address] [place] [address] Road, [address], [place], [place], [address]. tel:[phone] Referring Provider: Yesy Eid, [address] [place], [address]. tel:[phone] OFFICE/OUTPA TIENT VISIT, EST CVP Physician s, [address] [place], [address], [place] tel: [phone] [facility] No Information 3 [place] [facility]. [address] [place] [address] Road, [address], [place], [place], [address]. tel:[phone] Referring Provider: Yesy Eid, [address] [place], [address]. tel:[phone] OFFICE/OUTPA TIENT VISIT, EST CVP Physician s, [address] [place], [address], [place] tel: [phone] [facility] No Information 3 [facility]. [address] [place] [address], [address], [place], [place], [address]. tel:[phone] Referring Provider: Yesy Eid, [address] [place], [address]. tel:[phone] OFFICE/OUTPA TIENT VISIT, EST CVP Physician s, [address] [place], [address], [place] tel:[phone] [facility] No Information 3 [facility]. [address] [place] [address], [address], [place], [place], [address]. tel:[phone] Referring Provider: Yesy Eid, [address] [place], [address]. tel:[phone] OFFICE/OUTPA TIENT VISIT, EST CVP Physician s, [address] [place], [address], [place] tel:[phone] [facility] No Information 3 [facility]. [address] [place] [address], [address], [place], [place], [address]. tel:[phone] Referring Provider: Yesy Eid, [address] [place], [address]. tel:[phone] OFFICE/OUTPA TIENT VISIT, EST CVP Physician s, [address] [place], [address], [place] tel:[phone] [facility] No Information 3 [facility]. [address] [place] [address], [address], [place], [place], [address]. tel:[phone] Referring Provider: Yesy Eid, [address] [place], [address]. tel:[phone] OFFICE/OUTPA TIENT VISIT, EST CVP Physician s, [address] [place], [address], [place] tel:[phone] [facility] No Information 2 Rio Dean. [address] [place], [place], [id number]. tel:[phone] Referring Provider: Yesy Eid, [address], [place], [address]. tel:[phone] OFFICE/OUTPA TIENT VISIT, EST CVP Physician s, [address] [place], [address], [place] tel:[phone] [facility] No Information 2 [place] [facility]. [address] [place] [address] Road, [address], [place], [place], [address]. tel:[phone] Referring Provider: Yesy Eid, [address] [place], [address]. tel:[phone] [facility] Physician s, [address] [place], [address], [place] tel:[phone] [facility] No Information 2 [place] Edward. [address] [place] [address] Road, [address], [place], [place], [address]. tel:[phone] OFFICE/OUTPA TIENT VISIT, EST CVP Physician s, [address] [place], [address], [place] tel:[phone] [facility] No Information 2 [place] [facility]. [address] [place] [address] Road, [address], [place], [place], [address]. tel:[phone] Referring Provider: Yeys Eid, [address] [place], [address]. tel:[phone] OFFICE/OUTPA TIENT VISIT, EST CVP Physician s, [address] [place], [address], [place] tel:[phone] [facility] No Information 2 [facility] Edward. [address] [place] [address] Road, [address], [place], [place], [address]. tel:[phone] Referring Provider: Yesy Eid, [address], [place], [address]. tel:[phone] OFFICE/OUTPA TIENT VISIT, EST CVP Physician s, [address] [place], [address], [place] tel:[phone] [facility] No Information 1 [facility]. [address] [place] [address], [address], [place], [place], [address]. tel:[phone] Referring Provider: Yesy Eid, [address], [place], [address]. tel:[phone] OFFICE/OUTPA TIENT VISIT, EST CVP Physician s, [address] [place], [address], [place] tel:[phone] [facility] No Information 1 [facility]. [address] [place] [address], [address], [place], [place], [address]. tel:[phone] Referring Provider: Yesy Eid, [address], [place], [address]. tel:[phone] OFFICE/OUTPA TIENT VISIT, EST CVP Physician s, [address] [place], [address], [place] tel:[phone] [facility] No Information 1 [facility]. [address] [place] [address], [address], [place], [place], [address]. tel:[phone] Referring Provider: Yesy Eid, [address], [place], [address]. tel:[phone] OFFICE/OUTPA TIENT VISIT, EST CVP Physician s, [address] [place], [address], [place] tel:[phone] [facility] No Information 1 [facility]. [address] [place] [address], [address], [place], [place], [address]. tel:[phone] Referring Provider: Yesy Eid, [address], [place], [address]. tel:[phone] OFFICE/OUTPA TIENT VISIT, EST CVP Physician s, [address] [place], [address], tel:[phone] [facility] No Information 1 [facility]. [address] [place] [address], [address], [place], [place], [address]. tel:[phone] Referring Provider: Yesy Eid, [address] [place], [address]. tel:[phone] OFFICE/OUTPA TIENT VISIT, EST CVP Physician s, [address] [place], [address], tel:[phone] [facility] No Information 0 1 [facility]. [address] [place] [address], [address], [place], [place], [address]. tel:[phone] Referring Provider: Yesy Eid, [address] [place], [address]. tel:[phone] OFFICE/OUTPA TIENT VISIT, EST CVP Physician s, [address] [place], [address], tel:[phone] [facility] No Information 0 [facility]. [address] [place] [address], [address], [place], [place], [address]. tel:[phone] Referring Provider: Armando Ervin, [address] [place] [address] [address], [place], [address]. tel:[phone] OFFICE/OUTPA TIENT VISIT, EST CVP Physician s, [address] [place], [address], tel:[phone] [facility] No Information 0 0 [facility]. [address] [place] [address], [address], [place], [place], [address]. tel:[phone] Family History Family Member Type Diagnosis Age [...] Provider Payers Payer name Insurance type Covered green party ID Christos gary(anya) [facility] - [id number] CI [id number] Social History Type Description Quantity Date Captured [...] it will need to be sent through [employer] Meds:pred 3/0xiidra 2/0 Reason For Referral Reason [...] it will need to be sent through [employer] Meds:pred 3/0xiidra 2/0 4-6 month f/u Pt [...] Valtrex 500 mg Qd, AT 6-8, & [place] 3's. 3 month glaucoma follow up The [...] has occasional dryness OD. [facility] The 17 year old female presents for evaluation of glaucoma consult [facility] in the right and left eyes. States [...] Cornea ck [facility] 16 [facility] [...] Pt's mom states that pt was in [place] last week and had a sudden va decrease and saw a [employer] in [place] and they were supposed to send their notes to [facility]. I looked through pt's chart and [...] 6-8x daily OD-RTC when pt home from [facility] for fall break or prn (pt [...] reasess with BMG3. F/U as scheduled with [facility] (include MR/MARILYNN at next [facility] visit as planned) Related to See impression details . CPM, increase t ears today2. RTC with [facility] as sched Related to See impression details - Return - keep current appointm ent Related to See impression details - -Continue current vazl-Lkgvqe-zi with [facility] as scheduled 0MR/MARILYNN next visit as before) Related to See impression details - Return - 2 months Related to S ee impression details - 1. CPM2. RTC 2 mo' s with [facility] or prn-marilynn, mr, iop, ejh Related to See impression details - add antibiotic x 3 days, cont other meds, rtc 1mo Related to See impression details - . add vig tid x 3 days2. rtc with [facility] as sched or prn Related [...] to See impression details - 2 months [facility] with Marilynn Related to See impression details - cont restasis bidd ecrease Durezol to QDacyclovir 400 mg PO BIDtopo next visit and consider suture removal Related to See impression details - Return in 4-6 weeks. Related t o DALK - -Consulted with MARIAN - [facility] recommends cyclo-RTC as scheduled with [facility] Related to DALK - -RTC 6-8 weeks, [...] . Proceed with BILLIE RICHARDSON as scheduled2. [place] AT use Related to See impression details - Return in as scheduled Related to See impression details - . Schedule DALK O D - Discussed risks, benefits, procedures and recovery. Patient desires to have surgery. Related to See impression details - Sent message to [facility] to determine next step, waiting to hear back Related to See impression and plan - return to ers for hard contact and marilynn od, per [facility] Related to See impression and plan - Return with ERS fo r marilynn and hard contact lens fit for the right eye. Explained in details for the vision disconnect. Related to See impression and plan - RETURN IN ONE MTH WITH [facility] Rel ated to See impression details - 1.Patient here tod ay for decreased vision in the right eye. Discussed with patient and family the need for a corneal transplant, along with risks and benefits. Will re-assess for surgery at next visit, to consider DALK.2. Decrease the Durezol to TID OD. scribed by patria Related to See impression details - RETURN WITH [facility] IN 2-3 [place]EEKS [place] Related [...] plan - RETURN IN 3 MONTHS WITH [facility] Re lated to See impression: general plan [...] - RETURN IN 3-4 WEEK S WITH [facility]-CAT EVAL OD Related to POST SUBCAP SENILE [...] CATAR - RETURN IN 5-6 WEEKS WITH [facility] R chiloated to See impression: general plan [...] ZOSTER KERATOCONJUNCT - RETURN NEXT TUESDAY WITH [facility] IN [place] Related to See impression: general [...] plan - RETURN IN ONE WEEK WITH [facility] Re lated to H SIMPLEX KERATITIS ISK OD -INCREASED IN FLAMMATION ODINCREASED STROMAL HAZE OD - 1. INCREASE PRED TO EVERY TWO HOURS WHILE AWAKE FOR 4 DAYS THEN 6 TIMES A DAY FOR ONE WEEK. FOLLOW UP IN ONE WEEK.2. Educational materials provided:Primary Diagnosis. Related to H SIMPLEX KERATITIS - return with [facility] Related to See impression: general [...]
[2023-09-05 05:03] VITALS: BMI 36.1
--- NOTE | 2023-09-05 05:46 | US_ITS ---
Punch Press Operator: PROCEDURE: US OB LIMITED POSITION CLINICAL INDICATION: no heart tones COMPARISON: No exams were available for comparison FINDINGS: Transabdominal sonographic images of the uterus were obtained. The following parameters are obtained: From her established due date she is 39 weeks 0 days. Limited ultrasound is performed and heart tones are absent today. position is not documented. IMPRESSION: 1. Still at term with no heart tones today. Dictated by: Driss Rice MD 09/05/2023 09:51 Driss Rice MD in OV 09/05/2023 09:51
[2023-09-05 06:20] VITALS: BP 106/69; PULSE 83; RESP 20; O2SAT 98
[2023-09-05 07:06] LABS: Fetal Membrane Rupture (Rapid) Negative (Negative)
--- NOTE | 2023-09-05 07:50 | P.CONPHA_ITS ---
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 -BRANDI ALVAREZD
--- NOTE | 2023-09-05 07:50 | HMH.PHAINT1 ---
Pharmacy Intervention Comments: MEDICATION RECONCILIATION COMPLETED ON PATIENT USING EXTERNAL FILL HISTORY FROM PHARMACY AND LIST FROM PARA OPERATOR OFFICE. -BRANDI ALVAREZD
--- NOTE | 2023-09-05 07:54 | P.HP_ITS ---
History of Present Illness *Admission Date: 09/05/23 *Reason for visit:: Stillbirth, term , large for gestational age infant *History of present illness: She is a 22-year-old 3 para 1 aborta 1 who is 39 weeks and 0 days gestational age. She was brought in this morning for induction of labor at term because she had a large for gestational age . On arrival heart tones could not be found and ultrasound confirmed a stillbirth. She has been followed throughout the and was noted to have a large for gestational age . She has had few episodes of labor and was just seen 48 hours ago in labor and delivery. Her cervix has not changed and her nonstress test was reactive when she was seen. There was no indication at that time for induction of labor. She last felt the baby move last evening and said that everything seemed to be fine. She thought that possibly her membranes had ruptured this morning but the AmniSure was negative. A positive blood Group B streptococcus positive. [facility] Disclaimer: The information contained in this section may have been updated after the patient was seen, as this information can be updated by other users. Medical History Cornea transplant recipient Cataract Surgical History Hx of dilation and curettage Family History Diabetes Father Lupus Sister Cancer Grandmother Social History Smoking Status: Never smoker alcohol intake: never substance use type: denies use current occupational status: employed Travel in the last 8 weeks: None household members: spouse housing: house caffeine: No Review of Systems Review of Systems Review of systems:: pertinent systems reviewed and negative unless documented below Meds Home Medications and Allergies Home Medications Medication Instructions Recorded Confirmed Type vits no.126-ferrous fum 1 tab PO DAILY 01/31/23 09/05/23 History 28 mg iron-folic acid 800 mcg tablet (Classic ) magnesium oxide 250 mg PO DAILY #30 tabs 04/05/23 09/05/23 Rx famotidine 20 mg tablet (Pepcid) 20 mg PO DAILY 08/04/23 09/05/23 History ferrous sulfate 325 mg (65 mg 325 mg PO DAILY #30 tabs 08/15/23 09/05/23 Rx iron) tablet New Prescriptions to Start Prescriptions: Allergies Allergy/AdvReac Type Severity Reaction Status Date / Time amitriptyline [From Elavil] Allergy Severe Seizure Verified 08/29/23 14:03 Penicillins Allergy Verified 08/29/23 14:03 Exam Data for Last 24 hours Vital signs and Labs for Last 24 Hours: Pulse Resp BP Pulse Ox O2 Del Method 83 20 106/69 L 98 Room Air 09/05/23 06:20 09/05/23 06:20 09/05/23 06:20 09/05/23 06:20 09/05/23 06:20 Laboratory Results - last 24 hr 09/05/23 06:38: Membrane Rupture Negative I & O for Last 24 hours: Intake & Output 09/02/23 09/03/23 09/04/23 09/05/23 11:59 11:59 11:59 11:59 Weight 191 lb 1.326 oz Constitutional Constitutional: no acute distress *Routine HEENT Exam Head: Present normocephalic Eye: Present EOMI and PERRL ENT: Present mucous membranes moist *Routine Neck Exam Neck: Present supple; Absent lymphadenopathy *Routine Respiratory Exam Respiratory: Present CTA bilaterally *Routine Cardiovascular Exam Cardiovascular: Present RRR *Routine Abdominal Exam Abdominal: Present soft and normoactive bowel sounds; Absent tenderness *Routine Rectal Exam Rectal:: deferred *Routine Genitalia Exam Genitalia:: deferred *Routine Extremities Exam Extremities: Absent cyanosis, clubbing or edema *Routine Skin Exam Skin: Present warm; Absent rash *Routine Neurological Exam Neurological: Present alert and oriented X3 Assessment and Plan *Assessment and plan (1) Large for gestational age fetus affecting management of mother, antepartum: Status: Acute Qualifiers: Fetus number: single or unspecified fetus Qualified Code(s): O36.60X0 - Maternal care for excessive growth, unspecified trimester, not applicable or unspecified Category: Medical Code(s): O36.60X0 - Maternal care for excessive growth, unspecified trimester, not applicable or unspecified (2) Stillbirth with antepartum : Status: Acute Category: Medical Code(s): Z37.1 - Single stillbirth Plan We had planned for induction of labor this morning. I suspect that overnight the baby's heart stopped since she did have some movement last night. 48 hours ago she did have a nonstress test for false labor and the nonstress test was reactive. At this point in time we do not have any answer as to why the baby has no heartbeat today. We will plan to deliver her vaginally. Of note she did have genetic testing earlier on in the which was completely normal. Ultrasound for biophysical and growth 2-1/2 weeks ago was normal with the baby large for gestational age. Fluid was normal, movement and breathing were seen and normal. Baby was 90th percentile. We will go ahead with misoprostol labor induction later this morning.
[2023-09-05 10:32] VITALS: BP 103/65; PULSE 91; RESP 16; TEMP 37.2; O2SAT 99; BMI 41.3
[2023-09-05 10:33] LABS: Basophils % 0.4 % (0.1-2.0); Eosinophils % 0.1 % (0.1-12.0); Hematocrit 31.7 % (37.0-47.0); Hemoglobin 10.3 g/dL (12.2-16.2); Lymphocytes # 1.7 K/mm3 (0.7-4.5); Lymphocytes % 15.5 % (10-50); Mean Corpuscular HGB Conc 32.6 g/dL (31.8-35.4); Mean Corpuscular Hemoglobin 27.6 pg (27.0-31.2); Mean Corpuscular Volume 84.8 fl (81-99); Mean Platelet Volume 12.4 fl (7.4-10.4); Monocytes # 0.3 K/mm3 (0.1-1.0); Monocytes % 2.8 % (1.7-9.3); Neutrophils # 8.6 K/mm3 (1.8-7.8); Neutrophils % 81.1 % (37.0-80.0); Platelet Count 203 K/mm3 (142-424); Red Blood Count 3.74 M/mm3 (4.20-5.40); Red Cell Distribution Width 16.8 % (11.5-17.5); White Blood Count 10.6 K/mm3 (4.8-10.8)
[2023-09-05 10:37] LABS: Fibrinogen 418 mg/dL (229.9-363.5)
[2023-09-05 10:40] LABS: Activated Partial Thrombo Time 23.7 seconds (22.8-30.6); INR 0.96 (0.9-1.1); Prothrombin Time 10.4 seconds (10.1-12.5)
[2023-09-05 10:59] LABS: D-Dimer 4.94 ug/mL (0.0-0.5)
[2023-09-05] MEDS: miSOPROStol 100MCG TABLET 50 MCG VG (11:20)
[2023-09-05 11:29] LABS: Microscopic, Urine URINE MICROSCOPIC (MICROSCOPIC)
[2023-09-05 12:01] LABS: Amphetamine/Metha Screen,Urine Negative ng/ml (<1000); Barbiturates Screen,Urine Negative ng/ml (<200)
[2023-09-05 12:02] LABS: Benzodiazepines Screen,Urine Negative ng/ml (<200); Cannabinoid Screen,Urine Negative ng/ml (<50)
[2023-09-05 12:03] LABS: Cocaine Screen,Urine Negative ng/ml (<300)
[2023-09-05 12:04] LABS: Methadone Screen,Urine Negative ng/ml (<300)
[2023-09-05 12:05] LABS: Opiate Screen,Urine Negative ng/ml (<300); Phencyclidine Screen,Urine Negative ng/ml (<25)
--- NOTE | 2023-09-05 12:14 | EXP.LABOR.NO ---
Labor Note Subjective: Date: 09/05/23 Time: 12:14 regular contraction Objective: Contractions:: every 2-3 minutes Cervical Dilation:: 3-4 Effacement:: 75% Station: -2 Membranes: intact Fetus: Monitoring?: Yes monitoring type:: External Assessment: Labor progressing?: Yes Cephalopelvic disproportion?: No Plan: Anesthesia for epidural?: Yes Continue to labor down?: Yes Plan for ?: No Continue to monitor?: Yes Comment:: Her membranes are intact and she continues to have regular contractions every 2 minutes. Her cervix is changed from 2 to 4 cm. It is 75% effaced. She has an issue with her IV and we will change the IV. I have offered her Stadol 1 mg and she would like an epidural.
[2023-09-05] MEDS: LACTATED RINGERS 1000ML 1,000 ML 500 ML IV ×2 (12:32→13:25)
[2023-09-05 12:39] LABS: Appearance,Urine CLEAR (Clear); Bilirubin,Urine Negative (Negative); Blood, Urine Negative (Negative); Color,Urine YELLOW (Yellow); Glucose,Urine (UA) Negative (Negative); Ketones,Urine Negative (Negative); Leukocyte Esterase,Urine 1+ (Negative); Nitrate,Urine Negative (Negative); Protein,Urine Negative (Negative); Specific Gravity, Urine 1.025 (1.005-1.030); Urobilinogen,Urine 0.2 EU/dl (0.2)
[2023-09-05 13:30] LABS: Bacteria,Urine 1+ /lpf
[2023-09-05] MEDS: DEXTROSE 5%-LACTATED RINGERS 1,000 ML 125 ML IV (13:30)
--- NOTE | 2023-09-05 13:46 | EXP.LABOR.NO ---
Labor Note Subjective: Date: 09/05/23 Time: 13:46 regular contraction Objective: Contractions:: every 2-3 minutes Cervical Dilation:: 3-4 Effacement:: 75% Station: -2 Membranes: artificially ruptured Comment:: There was dark green meconium stained amniotic fluid. Fetus: Monitoring?: Yes monitoring type:: External Assessment: Labor progressing?: No Cephalopelvic disproportion?: No Plan: Anesthesia for epidural?: Yes Continue to labor down?: Yes Plan for ?: No Continue to monitor?: Yes Start pushing?: No Additional information:: She has not made much progress in the last couple of hours but we have now ruptured her membranes and hopefully she should start progressing. She is comfortable with her epidural.
--- NOTE | 2023-09-05 13:53 | P.PNANES_ITS ---
[facility] Disclaimer: The information contained in this section may have been updated after the patient was seen, as this information can be updated by other users. Medical History Cornea transplant recipient Cataract Surgical History Hx of dilation and curettage Family History Diabetes Father Lupus Sister Cancer Grandmother Social History (Updated 09/05/23 @ 10:29 by Angella Child RN) Smoking Status: Never smoker alcohol intake: never substance use type: denies use current occupational status: employed Travel in the last 8 weeks: None household members: spouse housing: house caffeine: No [facility] Anesthesia Checklist Patient Identification Patient Identification: Verbal (Name & ) Structural Data Admitted From: Home Planned Operative Procedure/s: labor epidural Consent for Planned Operative Procedure(s) Verified: Yes Additional verifications Anesthesia Reactions: No Airway Assessment Mallampati Score:: Class II C-Spine Mobility Assessed: Yes TMJ Mobility Assessed: Yes Dentition: Good Dentition Neurological Assessment Level of Consciousness: Awake, Alert and Appropriate Anesthesia Plan Anesthesia Risk discussed: Yes Anesthesia Plan: Verified ASA Class: II Anesthesia Type: Epidural
[2023-09-05] MEDS: CALCIUM CARBONATE 500MG CHEWTAB 1000 MG PO (14:01)
--- NOTE | 2023-09-05 16:15 | EXP.LABOR.NO ---
Labor Note Subjective: Date: 09/05/23 Time: 16:15 regular contraction Objective: Contractions:: every 2-3 minutes Cervical Dilation:: 9 Effacement:: 100% Station: 0 Membranes: artificially ruptured Fetus: Monitoring?: Yes monitoring type:: External Assessment: Labor progressing?: Yes Cephalopelvic disproportion?: No Plan: Anesthesia for epidural?: Yes Continue to labor down?: Yes Plan for ?: No Continue to monitor?: Yes Start pushing?: No Comment:: She is now 9 cm. We will allow the baby's head to come down a little more yet. She is comfortable with her epidural.
[2023-09-05] MEDS: METHYLERGONOVINE MALEATE 0.2MG/ML INJ 0.200000000000000011 MG IM (17:43)
[2023-09-05] MEDS: OXYTOCIN/RINGERS LACTATE 30 UNITS/500 ML BAG 40 UNITS IV (17:43)
[2023-09-05] MEDS: CLINDAMYCIN PHOSPHATE/D5W 900 MG/50 ML PIGGYBACK 100 MG IV (17:45)
--- NOTE | 2023-09-05 17:46 | P.PCN_ITS ---
Delivery Note Delivery Date:: 09/05/23 Delivery Time:: 17:31 Anesthesia Type: Epidural Was labor medically induced?: Yes Induction method: per misoprostol protocol Gestational age (weeks): 39 Infant delivered prior to 39 weeks?: No Gender: Female at 1 minute: 0 at 5 minutes: 0 Delivery Procedure:: She had a stillbirth that was discovered this morning. She was started on the misoprostol protocol of 50 mcg. She then had her membranes ruptured and there was dark green meconium stained fluid. There seem to be adequate fluid. She progressed under labor epidural and delivered spontaneously a stillborn female child at 5:31 PM in the afternoon of September 05, 2023. On deliver the shoulder head, the anterior shoulder delivered followed by the rest the 's body atraumatically. The fetus appeared extremely pale. She was a normally formed female child. Weight is currently unavailable. She had of 0, 1 and 0 at 5 minutes. She received IV oxytocin and using gentle traction on the cord and countertraction on the fundus I was able to easily deliver the placenta intact at 1730 4 PM. It had a normal three-vessel cord. There were no perineal or vaginal lacerations. We sent a sample of placenta and cord for genetics. We we will send the placenta to pathology. Estimated blood loss was approximately 100 cc. She has a positive blood and was group B streptococcus positive. We will plan to give her IV clindamycin 900 mg for prophylaxis against endometr itis. She will also receive Methergine 0.25 mg to prevent hemorrhage since she was noted to be large for gestational age. We will also monitor her overnight closely. Will plan to send her home tomorrow. Placental Delivery Description: Spontaneous
[2023-09-05 19:39] VITALS: BP 125/81; PULSE 70; RESP 17; TEMP 37.3
[2023-09-05] MEDS: IBUPROFEN 400 MG TABLET 800 MG PO (21:31)
[2023-09-05] MEDS: ACETAMINOPHEN 500MG TAB 1000 MG PO (21:31)
[2023-09-05] MEDS: SENNA 8.6MG TABLET 8.59999999999999964 MG PO (23:55)
[2023-09-06] MEDS: ACETAMINOPHEN 500MG TAB 1000 MG PO (03:28)
[2023-09-06 05:01] VITALS: BP 113/61; PULSE 65; RESP 17; TEMP 36.9; O2SAT 95
[2023-09-06 08:10] VITALS: BP 110/68; PULSE 78; RESP 18; TEMP 36.9; O2SAT 98
[2023-09-06 08:40] LABS: Hematocrit 30.6 % (37.0-47.0); Hemoglobin 10.1 g/dL (12.2-16.2)
[2023-09-06] MEDS: SENNA 8.6MG TABLET 8.59999999999999964 MG PO (08:48)
--- NOTE | 2023-09-06 09:02 | P.DS_ITS ---
General Admission date:: 09/05/23 Discharge date: 09/06/23 HPI HPI HPI: She is a 22-year-old 3 para 1 aborta 1 who is 39 weeks and 0 days gestational age. She was brought in this morning for induction of labor at term because she had a large for gestational age . On arrival heart tones could not be found and ultrasound confirmed a stillbirth. She has been followed throughout the and was noted to have a large for gestational age infant. She has had few episodes of labor and was just seen 48 hours ago in labor and delivery. Her cervix has not changed and her nonstress test was reactive when she was seen. There was no indication at that time for induction of labor. She last felt the baby move last evening and said that everything seemed to be fine. She thought that possibly her membranes had ruptured this morning but the AmniSure was negative. A positive blood Group B streptococcus positive. Hospital Course Hospital Course Hospital Course: She received vaginal misoprostol and progressed to full dilation under labor epidural. She delivered a stillborn female child at 5:31 PM on the evening of September 05, 2023. The baby weighed 8 pounds 9 ounces. The fluid was adequate around the baby and there was green meconium staining of the fluid. It was thin in consistency. Baby appeared to be fully developed, not hydropic and otherwise normal in appearance. The baby did appear extremely pale when it delivered. There did not appear to be any evidence of an abruption. Postoperatively she has done well and remained afebrile throughout hospitalization. She is eating and drinking and ambulating. Her lochia is normal. She has a positive blood and was group B streptococcus positive. She did receive 1 dose of clindamycin 900 mg post to prevent endometritis. She also received 1 dose of Methergine to prevent hemorrhage. She will be discharged home to follow-up with me in approximately 2 weeks time. Exam Data for Last 24 hours Vital signs and Labs for Last 24 Hours: Temp Pulse Resp BP Pulse Ox O2 Del Method 98.5 F 65 17 113/61 95 Room Air 09/06/23 05:01 09/06/23 05:01 09/06/23 05:01 09/06/23 05:01 09/06/23 05:01 09/06/23 05:01 Laboratory Results - last 24 hr 09/05/23 10:20: WBC 10.6, RBC 3.74 L, Hgb 10.3 L, Hct 31.7 L, MCV 84.8, MCH 27.6, MCHC 32.6, RDW 16.8, Plt Count 203, MPV 12.4 H, Neut % (Auto) 81.1 H, Lymph % (Auto) 15.5, [place] % (Auto) 2.8, Eos % (Auto) 0.1, Baso % (Auto) 0.4, Neut # (Auto) 8.6 H, Lymph # (Auto) 1.7, [place] # (Auto) 0.3, Eos # (Auto) 0.0, Baso # (Auto) 0.0, PT 10.4, INR 0.96, APTT 23.7, Fibrinogen 418 H, D-Dimer 4.94 H 09/05/23 11:23: Urine Color Yellow, Urine Appearance Clear, Urine pH 6.0, Ur Specific [place] 1.025, Urine Protein Negative, Urine Glucose (UA) Negative, Urine Ketones Negative, Urine Blood Negative, Urine Nitrate Negative, Urine Bilirubin Negative, Urine Urobilinogen 0.2, Ur Leukocyte Esterase 1+ A, Urine RBC None, Urine WBC 10-20, Ur Squamous Epith Cells 10-20, Urine Bacteria 1+, Urine Opiates Screen Negative, Urine Methadone Screen Negative, Ur Barbituates Screen Negative, Ur Phencyclidine Scrn Negative, Ur Amphetamines Screen Negative, U Benzodiazepines Scrn Negative, Urine Cocaine Screen Negative, U Marijuana (THC) Screen Negative 09/06/23 08:30: Hgb 10.1 L, Hct 30.6 L I & O for Last 24 hours: Intake & Output 09/03/23 09/04/23 09/05/23 09/06/23 11:59 11:59 11:59 11:59 Weight 219 lb Constitutional Constitutional: no acute distress *Routine HEENT Exam Head: Present normocephalic *Routine Respiratory Exam Respiratory: Present normal respiratory effort; Absent accessory muscle use Results Data Completed and Pending Labs on day of discharge: Labs from last 24 hours 09/06/23 09/05/23 09/05/23 08:30 11:23 10:20 WBC 10.6 RBC 3.74 L Hgb 10.1 L 10.3 L Hct 30.6 L 31.7 L MCV 84.8 MCH 27.6 MCHC 32.6 RDW 16.8 Plt Count 203 MPV 12.4 H Neut % (Auto) 81.1 H Lymph % (Auto) 15.5 [place] % (Auto) 2.8 Eos % (Auto) 0.1 Baso % (Auto) 0.4 Neut # (Auto) 8.6 H Lymph # (Auto) 1.7 [place] # (Auto) 0.3 Eos # (Auto) 0.0 Baso # (Auto) 0.0 PT 10.4 INR 0.96 APTT 23.7 Fibrinogen 418 H D-Dimer 4.94 H Urine Color Yellow Urine Appearance Clear Urine pH 6.0 Ur Specific [place] 1.025 Urine Protein Negative Urine Glucose (UA) Negative Urine Ketones Negative Urine Blood Negative Urine Nitrate Negative Urine Bilirubin Negative Urine Urobilinogen 0.2 Ur Leukocyte Esterase 1+ A Urine RBC None Urine WBC 10-20 Ur Squamous Epith Cells 10-20 Urine Bacteria 1+ Urine Opiates Screen Negative Urine Methadone Screen Negative Ur Barbituates Screen Negative Ur Phencyclidine Scrn Negative Ur Amphetamines Screen Negative U Benzodiazepines Scrn Negative Urine Cocaine Screen Negative U Marijuana (THC) Screen Negative DS: Diagnosis Discharge Diagnosis (1) Large for gestational age fetus affecting management of mother, antepartum: Status: Acute Code(s): O36.60X0 - Maternal care for excessive growth, unspecified trimester, not applicable or unspecified Qualifiers: Fetus number: single or unspecified fetus Qualified Code(s): O36.60X0 - Maternal care for excessive growth, unspecified trimester, not applicable or unspecified (2) Stillbirth with antepartum : Status: Acute Code(s): Z37.1 - Single stillbirth Meds Home Medications and Allergies Home Medications Medication Instructions Recorded Confirmed Type vits no.126-ferrous fum 1 tab PO DAILY 01/31/23 09/05/23 History 28 mg iron-folic acid 800 mcg tablet (Classic ) magnesium oxide 250 mg PO DAILY #30 tabs 04/05/23 09/05/23 Rx famotidine 20 mg tablet (Pepcid) 20 mg PO DAILY 08/04/23 09/05/23 History ferrous sulfate 325 mg (65 mg 325 mg PO DAILY #30 tabs 08/15/23 09/05/23 Rx iron) tablet New Prescriptions to Start Prescriptions: Allergies Allergy/AdvReac Type Severity Reaction Status Date / Time amitriptyline [From Elavil] Allergy Severe Seizure Verified 09/05/23 10:30 Penicillins Allergy Verified 09/05/23 10:30 Discharge Plan Disposition Patient Disposition: Home, Self-Care Discharge Order Discharge Orders: Discharge Order (Routine); Ordered 09/06/23 Ordered By: Driss Rice Follow up Plan Prescriptions/Medication Reconciliation: Continued Classic 28 mg iron- 800 mcg tablet 1 tab PO DAILY famotidine [Pepcid] 20 mg tablet 20 mg PO DAILY magnesium oxide 250 mg magnesium tablet 250 mg PO DAILY Qty: 30 1RF ferrous sulfate 325 mg (65 mg iron) tablet 325 mg PO DAILY Qty: 30 4RF Problem Reconciliation Problems Reviewed?: Yes Patient Discharge Instructions ACTIVITY: Ambulate as tolerated DIET: continue same diet Providers Primary Care Provider: Loan Vick Admit Provider: Driss Rice Attending Provider: Driss Rice
[2023-09-07 07:13] LABS: Cytomegalovirus (CMV) Ab, IgG <0.60 U/mL (0.00-0.59)
[2023-09-07 11:14] LABS: Cytomegalovirus (CMV) Ab, IgM <30.0 AU/mL (0.0-29.9)
[2023-09-07 17:10] LABS: Anti-Cardio Antibody IgM <9 MPL U/mL (0-12); Anti-Cardiolipin Antibody IgG <9 GPL U/mL (0-14); Anticardiolipin Ab,IgA,Qn <9 APL U/mL (0-11)
[2023-09-09 07:33] LABS: Beta-2 Glycoprotein I Ab, IgA <9 (0-25); Beta-2 Glycoprotein I Ab, IgG <9 (0-20); Beta-2 Glycoprotein I Ab, IgM <9 (0-32)
[2023-09-12 12:39] LABS: Parvovirus B19, IgG 4.3 index (0.0-0.8)
[2023-09-13 15:17] LABS: Parvovirus B19, IgM 0.1 index (0.0-0.8)
== END 2023-09-06 11:25 | disposition home or self-care (01) | DRG 807 ==
PROVIDERS: Admitting Provider Nurse Practitioner Obstetrics & Gynecology; PCP Family Medicine; Visit Provider Nurse Practitioner Obstetrics & Gynecology
DX: O36.4XX0 Maternal care for intrauterine death, not applicable or unspecified (principal); Z37.1 Single stillbirth; O36.60X0 Maternal care for excessive fetal growth, unspecified trimester, not applicable or unspecified; Z3A.39 39 weeks gestation of pregnancy
CPT/HCPCS: 59409; 36415; 76815; 80307; 81001; 84112; 85014; 85018; 85025; 85378; 85384; 85610; 85730; 86146; 86147; 86644; 86645; 86747; 87086; 88307; 94761; G0283

== ENCOUNTER 2024-04-13 15:48 | Outpatient (CLI) | payer BC, SELFPAY | END 2024-04-13 23:59 | disposition home or self-care (01) | PROVIDERS: PCP Family Medicine; Visit Provider Obstetrics & Gynecology | DX: Z02.9 Encounter for administrative examinations, unspecified (principal) ==

== ENCOUNTER 2024-05-07 10:45 | Outpatient (CLI) | payer BC, SELFPAY ==
[2024-05-07 12:04] LABS: HCG,Quantitative 94 mIU/ml (0-5.42)
[2024-05-08 08:25] LABS: Progesterone 16.7 ng/mL (.)
== END 2024-05-07 23:59 | disposition home or self-care (01) ==
LOC: LAB 10:46
PROVIDERS: PCP Family Medicine; Visit Provider Obstetrics & Gynecology
DX: N92.6 Irregular menstruation, unspecified (principal)
CPT/HCPCS: 36415; 84144; 84702

== ENCOUNTER 2024-05-09 15:18 | Outpatient (CLI) | payer BC, SELFPAY ==
[2024-05-09 17:31] LABS: HCG,Quantitative 364 mIU/ml (0-5.42)
== END 2024-05-09 23:59 | disposition home or self-care (01) ==
LOC: LAB 15:21
PROVIDERS: PCP Family Medicine; Visit Provider Obstetrics & Gynecology
DX: Z32.01 Encounter for pregnancy test, result positive (principal)
CPT/HCPCS: 36415; 84702

== ENCOUNTER 2024-05-11 15:52 | Outpatient (CLI) | payer BC, SELFPAY ==
[2024-05-11 17:10] LABS: HCG,Quantitative 1113 mIU/ml (0-5.42)
== END 2024-05-11 23:59 | disposition home or self-care (01) ==
LOC: LAB 15:53
PROVIDERS: PCP Family Medicine; Visit Provider Obstetrics & Gynecology
DX: Z32.01 Encounter for pregnancy test, result positive (principal)
CPT/HCPCS: 36415; 84702

== ENCOUNTER 2024-05-15 15:25 | Outpatient (CLI) | payer BC, SELFPAY ==
[2024-05-15 16:28] LABS: HCG,Quantitative 7819 mIU/ml (0-5.42)
== END 2024-05-15 23:59 | disposition home or self-care (01) ==
LOC: LAB 15:26
PROVIDERS: PCP Family Medicine; Visit Provider Obstetrics & Gynecology
DX: Z34.91 Encounter for supervision of normal pregnancy, unspecified, first trimester (principal); Z3A.01 Less than 8 weeks gestation of pregnancy
CPT/HCPCS: 36415; 84702

== ENCOUNTER 2024-05-22 16:04 | Outpatient (CLI) | payer BC, SELFPAY ==
[2024-05-22 17:52] LABS: HCG,Quantitative 33664 mIU/ml (0-5.42)
== END 2024-05-22 23:59 | disposition home or self-care (01) ==
LOC: LAB 16:05
PROVIDERS: PCP Family Medicine; Visit Provider Obstetrics & Gynecology
DX: Z34.91 Encounter for supervision of normal pregnancy, unspecified, first trimester (principal); Z3A.01 Less than 8 weeks gestation of pregnancy; Z37.1 Single stillbirth
CPT/HCPCS: 36415; 84702

== ENCOUNTER 2024-05-25 16:27 | Outpatient (CLI) | payer BC, SELFPAY ==
[2024-05-29 03:38] LABS: Neisseria gonorrhoeae, NAA Negative (Negative)
== END 2024-05-25 23:59 | disposition home or self-care (01) ==
LOC: LAB.DROPOF 16:28
PROVIDERS: PCP Obstetrics & Gynecology; Visit Provider Obstetrics & Gynecology
DX: Z34.91 Encounter for supervision of normal pregnancy, unspecified, first trimester (principal); Z3A.01 Less than 8 weeks gestation of pregnancy
CPT/HCPCS: 87086; 87491; 87591

== ENCOUNTER 2024-06-04 12:50 | Outpatient (CLI) | payer BC, SELFPAY ==
--- NOTE | 2024-06-04 12:51 | US_ITS ---
PROCEDURE: US OB <= 14 WEEKS FETUS CLINICAL INDICATION: Dates and Confirmation ,Viability COMPARISON: No exams were available for comparison FINDINGS: Transvaginal sonographic images of the pelvis were obtained. The uterus is anteverted. From her last menstrual period she is 8weeks 5days. An intrauterine gestational sac is present with a pole with a crown-rump length of 1.17cm This correlates to a gestational age of 7weeks 3days. ROHINI 01/18/2025 heart activity is present with an FHR of 161bpm. Yolk sac is noted. The yolk sac measures 4.7mm. The right ovary is seen and appears normal. The left ovary is seen and appears normal. There is no fluid in the cul-de-sac. IMPRESSION: 1. Viable embryo within the uterine cavity. heart activity is seen. 2. Embryo measures 7 weeks 3 days and her ROHINI should be revised to reflect this. ROHINI will be 01/18/2025. 3. Both ovaries are seen and appear normal. 4. No fluid in the cul-de-sac. Dictated by: Driss Rice MD 06/04/2024 14:20 Driss Rice MD in OV 06/04/2024 14:20
== END 2024-06-04 23:59 | disposition home or self-care (01) ==
LOC: RAD 12:51
PROVIDERS: PCP Obstetrics & Gynecology; Visit Provider Obstetrics & Gynecology
DX: Z34.91 Encounter for supervision of normal pregnancy, unspecified, first trimester (principal); Z37.1 Single stillbirth; Z3A.01 Less than 8 weeks gestation of pregnancy
CPT/HCPCS: 76801

== ENCOUNTER 2024-06-19 16:20 | Outpatient (CLI) | payer BC, SELFPAY ==
[2024-06-19 17:16] LABS: Basophils % 0.3 % (0.1-2.0); Eosinophils # 0.1 K/mm3 (0.0-0.4); Eosinophils % 0.7 % (0.1-12.0); Hematocrit 36.1 % (37.0-47.0); Hemoglobin 12.2 g/dL (12.2-16.2); Lymphocytes % 28.6 % (10-50); Mean Corpuscular HGB Conc 33.8 g/dL (31.8-35.4); Mean Corpuscular Hemoglobin 28.2 pg (27.0-31.2); Mean Corpuscular Volume 83.4 fl (81-99); Mean Platelet Volume 10.5 fl (7.4-10.4); Monocytes # 0.6 K/mm3 (0.1-1.0); Monocytes % 5.8 % (1.7-9.3); Neutrophils # 6.8 K/mm3 (1.8-7.8); Neutrophils % 63.9 % (37.0-80.0); Platelet Count 252 K/mm3 (142-424); Red Blood Count 4.33 M/mm3 (4.20-5.40); Red Cell Distribution Width 13.5 % (11.5-17.5); White Blood Count 10.6 K/mm3 (4.8-10.8)
[2024-06-19 19:31] LABS: HIV Combo NEGATIVE (Negative)
[2024-06-19 19:40] LABS: Hepatitis C Ab Qual. W/ RFX NEGATIVE (Negative)
[2024-06-20 02:29] LABS: RPR W/RFX Titers Nonreactive (Nonreactive)
[2024-06-21 08:15] LABS: Hepatitis B Surface Antigen Negative (Negative); Rubella Antibodies, IgG 1.78 index (Immune >0.99)
== END 2024-06-19 23:59 | disposition home or self-care (01) ==
LOC: LAB 16:21
PROVIDERS: PCP Family Medicine; Visit Provider Obstetrics & Gynecology
DX: Z34.91 Encounter for supervision of normal pregnancy, unspecified, first trimester (principal); Z3A.09 9 weeks gestation of pregnancy
CPT/HCPCS: 36415; 85025; 86592; 86762; 86803; 86850; 87340; 87389

== ENCOUNTER 2024-10-22 09:37 | Outpatient (CLI) | payer BC, SELFPAY ==
--- OUTSIDE RECORDS SUMMARY | 2022-03-09 07:20 | XMS_ITS | Continuity of Care Document ---
Author Organization [facility] Address [address] [place] [address] Phone Care Team Providers Care Animal Humane Agent Supervisor Name Role Phone Armando Monreal MD Unavailable [...] VISIT, EST, Moderate [facility], [address] [place], [address], [place] tel:[phone] [facility] s/p DALK OD (chief complaint) Corneal transplant statusDry eye syndrome of bilateral lacrimal glands 2 [facility]. [address] [place] [address] Road, [address], [place], [place], [address]. tel:[phone] Referring Provider: Yesy Eid, [address], [place], [address]. tel:[phone] [facility], [address] [place], [place], [facility], [place] tel:[phone] [facility] No Information 2 [facility]. [address] [place] [address] Road, [address], [place], [place], [address]. tel:[phone] [facility], [address] [place], [place], [facility], [place] tel:[phone] [facility] No Information 2 [facility]. [address] [place] [address], [address], [place], [place], [address]. tel:[phone] OFFICE/OUTPA TIENT VISIT, EST, Low [facility], [address] [place], [address], [place] tel:[phone] [facility] [place] 4-6 month f/u (chief complaint) Irregular astigmatism, right eyeCorneal transplant statusPresenc e of intraocular lens 1 [facility]. [address] [place] [address], [address], [place], [place], [address]. tel:[phone] Referring Provider: Yesy Eid, [address], [place], [address]. tel:[phone] OFFICE/OUTPA TIENT VISIT, EST, Low [facility], [address] [place], [address], [place] tel:[phone] [facility] [place] blurry vision follow up (chief complaint) Corneal transplant statusVitreou s degeneration of right eyePhotopsia of right eyeHeadache, unspecifiedDr y eye syndrome of bilateral lacrimal glands 1 Radha Landa. [address] [place], [place], [id number], . tel:[phone] Referring Provider: No Ref Doc No Referring Doc. OFFICE/OUTPA TIENT VISIT, EST [facility], [address] [place], [address], [place] tel:[phone] [facility] 4 mo corneal ck (chief complaint) Dry eye syndrome of bilateral lacrimal glandsCorneal transplant rejectionCorn eal transplant statusPresenc e of intraocular lens Oct-3 0-202 0 [facility]. [address] [place] [address], [address], [place], [place], [address]. tel:[phone] Referring Provider: Armando Ervin, [address] [place] [address] [address], [place], [address]. tel:[phone] OFFICE/OUTPA TIENT VISIT, EST [facility], [address] [place], [place], [facility], tel:[phone] [facility] 3-4 mo corneal follow up (chief complaint) Corneal transplant statusDry eye of right sideIrregular astigmatism, right eye Akshat-0 9-202 0 [facility]. [address] [place] [address], [address], [place], [place], [address]. tel:[phone] Referring Provider: Armando Ervin, [address] [place] [address] [address], [place], [address]. tel:[phone] OFFICE/OUTPA TIENT VISIT, EST [facility], [address] [place], [place], [facility], [place] tel:[phone] [facility] 5 mo corneal f/u (chief complaint) Corneal transplant statusPresenc e of intraocular lensDry eye syndrome of bilateral lacrimal glands Oct-0 201 9 [facility]. [address] [place] [address], [address], [place], [place], [address]. tel:[phone] Referring Provider: Armando Ervin, [address] [place] [address] [address], [place], [address]. tel:[phone] OFFICE/OUTPA TIENT VISIT, EST [facility], [address] [place], [address], [place] tel:[phone] [facility] 4 month glaucoma follow up (chief complaint) At low risk for open-angle glaucoma in both eyesCorneal transplant statusPresenc e of intraocular lens 9 Tati Garcia. [address] [place], [place], [id number]. [phone] Referring Provider: Radha Walsh, [address] [place], [address]. [phone] OFFICE/OUTPA TIENT VISIT, EST [facility], [address] [place], [address], [place] tel:[phone] [facility] 4 month cornea follow up (chief complaint) Corneal transplant statusPresenc e of intraocular lensDry eye syndrome of bilateral lacrimal glands 9 Rah Roberts. [address] [place] [address] Road, [address], [place], [place], [address]. tel:[phone] Referring Provider: Armando Ervin, [address] [place] [address] Road [address], [place], [address]. tel:[phone] OFFICE/OUTPA TIENT VISIT, EST [facility], [address] [place], [address], [place] tel:[phone] [facility] 3 month glaucoma follow up (chief complaint) At low risk for open-angle glaucoma in both eyes 9 Juancarmine Naqvissica. [address] [place], [place], [address]. [phone] Referring Provider: No Ref Doc No Referring Doc. OFFICE/OUTPA TIENT VISIT, EST [facility], [address] [place], [address], [place] [phone] [facility] 3 month cornea follow up (chief complaint) Corneal transplant status 9 Rah Roberts. [address] [place] [address] Road, [address], [place], [place], [address]. tel:[phone] Other Provider: Yesy Eid, [address] [place], [address]. tel:[phone] ng Provider: No Ref Doc No Referring Doc. OFFICE/OUTPA TIENT VISIT, EST [facility], [address] [place], [address], [place] tel:[phone] [facility] [place] [facility] glaucoma consult per [facility] (chief complaint) At low risk for open-angle glaucoma in both eyesPresence of intraocular lensCorneal transplant status 8 Tati Garcia. [address] [place], [place], [address]. tel:[phone] Referring Provider: No Ref Doc No Referring Doc. OFFICE/OUTPA TIENT VISIT, EST [facility], [address] [place], [address], [place] tel:[phone] [facility] 2 month cornea follow up (chief complaint) Corneal transplant statusDry eye of right sidePseudopha malou Oct-0 8 [facility]. [address] [place] [address], [address], [place], [place], [address]. tel:[phone] Referring Provider: No Ref Doc No Referring Doc. OFFICE/OUTPA TIENT VISIT, EST [facility], [address] [place], [address], [place] tel:[phone] [facility] [place] [facility] cornea follow up (chief complaint) Corneal transplant rejectionCorn eal transplant status 8 Rio Dean. [address] [place], [place], [id number]. tel:[phone] Referring Provider: No Ref Doc No Referring Doc. [facility], [address] [place], [address], [place] tel:[phone] [facility] [place] [facility] 4-6 wk Cornea ck (chief complaint) Corneal transplant statusCorneal transplant rejectionDry eye syndrome of bilateral lacrimal glandsPseudop hakia 8 [facility]. [address] [place] [address], [address], [place], [place], [address]. tel:[phone] Referring Provider: No Ref Doc No Referring Doc. OFFICE/OUTPA TIENT VISIT, EST [facility], [address] [place], [address], tel:[phone] [facility] [place] [facility] cornea follow up (chief complaint) Corneal transplant statusDry eye syndrome of bilateral lacrimal glandsPseudop hakiaCorneal transplant rejection 8 [facility]. [address] [place] [address], [address], [place], [place], [address]. tel:[phone] Referring Provider: No Ref Doc No Referring Doc. OFFICE/OUTPA TIENT VISIT, EST [facility], [address] [place], [place], [facility], tel:[phone] [facility] 3-4 mo Cornea ck (chief complaint) Dry eye of right sideCorneal transplant statusBlurry vision, right eyePseudophak ia 8 [facility]. [address] [place] [address], [place] [address], [place], [place], [address]. tel:[phone] Referring Provider: No Ref Doc No Referring Doc. OFFICE/OUTPA TIENT VISIT, EST [facility], [address] [place], [facility], tel:[phone] [facility] headaches (chief complaint) Corneal transplant statusDry eye of right sidePseudopha kiaPersistent headaches 8 Cristobal Healiq. [address] [place], [place], [id number], [place]. tel:[phone] Referring Provider: No Ref Doc No Referring Doc. OFFICE/OUTPA TIENT VISIT, EST [facility], [address] [place], [address], [place] tel:[phone] [facility] 5 mo cornea fu (chief complaint) Corneal transplant statusDry eye of right sidePseudopha malou 8 [facility]. [address] [place] [address], [address], [place], [place], [address]. tel:[phone] Referring Provider: No Ref Doc No Referring Doc. OFFICE/OUTPA TIENT VISIT, EST [facility], [address] [place], [address], [place] tel:[phone] [facility] 3-4 mo check (chief complaint) Corneal transplant statusPseudop hakia [facility]. [address] [place] [address], [address], [place], [place], [address]. tel:[phone] Referring Provider: Armando Ervin, [address] [place] [address] [address], [place], [address]. tel:[phone] OFFICE/OUTPA TIENT VISIT, EST [facility], [address] [place], [address], [place] tel:[phone] [facility] 3 MO CORNEA FU (chief complaint) Corneal transplant statusDry eye of right side [facility]. [address] [place] [address], [address], [place], [place], [address]. tel:[phone] Referring Provider: Yesy Eid, [address] [place], [address]. tel:[phone] OFFICE/OUTPA TIENT VISIT, EST [facility], [address] [place], [address], [place] tel:[phone] [facility] cornea check (chief complaint) Corneal transplant statusPseudop hakiaDry eye of right side 7 [facility]. [address] [place] [address], [address], [place], [place], [address]. tel:[phone] Referring Provider: Yesy Eid, [address], [place], [address]. tel:[phone] OFFICE/OUTPA TIENT VISIT, EST [facility], [address] [place], [address], [place] tel:[phone] [facility] [place] pain (chief complaint) Corneal transplant statusPhotops ia of right eyeBlurry vision, right eye 7 Jaya Riverat. [address], [address], [place], [address], [place]. tel:[phone] Referring Provider: Yesy Eid, [address], [place], [address]. tel:[phone] [facility], [address] [place], [address], [place] tel:[phone] [facility] [place] Follow Up of 4-6 Yag (chief complaint) Corneal transplant statusPseudop hakiaEncntr for f/u exam aft trtmt for cond oth than malig neoplm 6 No Information Referring Provider: Yesy Eid, [address] [place], [address]. tel:[phone] [facility], [address] [place], [address], [place] tel:[phone] [facility] Encntr for f/u exam aft trtmt for cond oth than malig neoplm 6 No Information Referring Provider: Yesy Eid, [address], [place], [address]. [phone] [facility], [address] [place], [address], [place] tel:[phone] [facility] Other secondary cataract, right eye 6 [facility]. [address] [place] [address], [address], [place], [place], [address]. tel:[phone] Referring Provider: Yesy Eid, [address], [place], [address]. tel:[phone] OFFICE/OUTPA TIENT VISIT, EST [facility], [address] [place], [address], [place] tel:[phone] [facility] Other secondary cataract, right eye 6 [facility]. [address] [place] [address], [address], [place], [place], [address]. tel:[phone] Referring Provider: Yesy Eid, [address] [place], [address]. tel:[phone] [facility] Physician s, [address] [place], [address], [place] tel:[phone] [facility] Encntr for f/u exam aft trtmt for cond oth than malig neoplm 6 Rio Dean. [address] [place], [place], [address]. tel:[phone] Referring Provider: Yesy Eid, [address] [place], [address]. tel:[phone] [facility] Physician s, [address] [place], [address], [place] tel:[phone] [facility] Presence of intraocular lens 6 No Information Referring Provider: Yesy Eid, [address] [place], [address]. tel:[phone] [facility] Physician s, [address] [place], [address], [place] tel:[phone] [facility] Other age-related cataractAge-r elated nuclear cataract, right eyeIrregular astigmatism, right eye [facility]. [address] [place] [address], [address], [place], [place], [address]. tel:[phone] Referring Provider: Yesy Eid, [address] [place], [address]. tel:[phone] OFFICE/OUTPA TIENT VISIT, EST [facility], [address] [place], [address], [place] tel:[phone] [facility] cataract evaluation (chief complaint) Corneal transplant statusPosteri or subcapsular polar age-related cataract, right eye [facility]. [address] [place] [address], [address], [place], [place], [address]. tel:[phone] Referring Provider: Yesy Eid, [address], [place], [address]. tel:[phone] OFFICE/OUTPA TIENT VISIT, EST [facility], [address] [place], [address], [place] tel:[phone] [facility] pain OD (chief complaint) Corneal transplant statusPosteri or subcapsular polar age-related cataract, right eye Apr-2 6 [facility]. [address] [place] [address], [address], [place], [place], [address]. tel:[phone] Referring Provider: Yesy Eid, [address], [place], [address]. tel:[phone] OFFICE/OUTPA TIENT VISIT, EST [facility], [address] [place], [address], [place] tel:[phone] [facility] cornea follow up (chief complaint) Corneal transplant statusRegular astigmatism, right eye Apr-1 6 [facility]. [address] [place] [address], [address], [place], [place], [address]. tel:[phone] Referring Provider: Yesy Eid, [address], [place], [address]. tel:[phone] OFFICE/OUTPA TIENT VISIT, EST [facility], [address] [place], [address], [place] tel:[phone] [facility] 2 WEEK FU DALK OD (chief complaint) Corneal transplant statusPosteri or subcapsular polar age-related cataract, right eye Mar-0 6 [facility]. [address] [place] [address], [address], [place], [place], [address]. tel:[phone] Referring Provider: Yesy Eid, [address], [place], [address]. tel:[phone] OFFICE/OUTPA TIENT VISIT, EST [facility], [address] [place], [address], [place] tel:[phone] [facility] redness (chief complaint) Corneal transplant status 6 No Information Referring Provider: Yesy Eid, [address] [place], [address]. tel:[phone] OFFICE/OUTPA TIENT VISIT, EST [facility], [address] [place], [address], [place] tel:[phone] [facility] Urgent (chief complaint) Corneal transplant status 6 Riooscar Dean. [address] [place], [place], [id number]. tel:[phone] Referring Provider: Yesy Eid, [address] [place], [address]. tel:[phone] OFFICE/OUTPA TIENT VISIT, EST [facility], [address] [place], [address], [place] tel:[phone] [facility] Urgent possible loose stitch od (chief complaint) Corneal transplant status No Information Referring Provider: Yesy Eid, [address] [place], [address]. tel:[phone] OFFICE/OUTPA TIENT VISIT, EST [facility], [address] [place], [address], [place] tel:[phone] [facility] 1 mo check (chief complaint) Corneal transplant statusPosteri or subcapsular polar age-related cataract, right eye 5 Rio Dean. [address] [place], [place], [id number]. tel:[phone] Referring Provider: Yesy Eid, [address] [place], [address]. tel:[phone] OFFICE/OUTPA TIENT VISIT, EST [facility], [address] [place], [address], [place] tel:[phone] [facility] Urgent possible loose suture (chief complaint) Corneal transplant status Oct-0 5-201 5 Rio Dean. [address] [place], [place], [id number]. tel:[phone] Referring Provider: Yesy Eid, [address] [place], [address]. tel:[phone] OFFICE/OUTPA TIENT VISIT, EST [facility], [address] [place], [address], [place] tel:[phone] [facility] urgent- pain, possible suture broken (chief complaint) No Information Sep-0 8- 5 Rio Dean. [address] [place], [place], [id number]. tel:[phone] Referring Provider: Yesy Eid, [address] [place], [address]. tel:[phone] OFFICE/OUTPA TIENT VISIT, EST [facility], [address] [place], [place], [facility], [place] tel:[phone] [facility] cornea follow up (chief complaint) No Information 5 [facility]. [address], [address], [place], [place], [address]. tel:[phone] Referring Provider: Yesy Eid, [address] [place], [address]. tel:[phone] OFFICE/OUTPA TIENT VISIT, EST [facility], [address] [place], [address], [place] tel:[phone] [facility] Cornea Follow Up (chief complaint) No Information 0 5 [facility]. [address], [address], [place], [place], [address]. tel:[phone] Referring Provider: Yesy Eid, [address], [place], [address]. tel:[phone] OFFICE/OUTPA TIENT VISIT, EST [facility], [address] [place], [address], [place] tel:[phone] [facility] cornea follow up (chief complaint) No Information 5 [facility]. [address] [place] [address] Road, [address], [place], [place], [address]. tel:[phone] Referring Provider: Yesy Eid, [address] [place], [address]. tel:[phone] OFFICE/OUTPA TIENT VISIT, EST [facility], [address] [place], [address], tel:[phone] RON[facility] [place] [facility] urgent pain od x 2 days (chief complaint) No Information 5 No Information Referring Provider: Yesy Eid, [address] [place], [address]. tel:[phone] OFFICE/OUTPA TIENT VISIT, EST [facility], [address] [place], [address], tel:[phone] ABELARD[facility] [place] [facility] 2 mo fu s/p dalk od 03/27/14 (chief complaint) No Information Sep- 5 [facility]. [address] [place] [address], [address], [place], [place], [address]. tel:[phone] Referring Provider: Yesy Eid, [address] [place], [address]. tel:[phone] OFFICE/OUTPA TIENT VISIT, EST [facility], [address] [place], [address], [place] tel:[phone] [facility] [place] cornea follow up (chief complaint) No Information 3 0- 5 [facility]. [address], [address], [place], [place], [address]. tel:[phone] Referring Provider: Yesy Eid, [address] [place], [address]. tel:[phone] [facility], [address] [place], [address], [place] tel:[phone] [facility] [place] [facility] No Information 5 [facility]. [address], [address], [place], [place], [address]. tel:[phone] Referring Provider: Yesy Eid, [address], [place], [address]. tel:[phone] [facility], [address] [place], [address], [place] tel:[phone] [facility] No Information 5 No Information Referring Provider: Yesy Eid, [address], [place], [address]. tel:[phone] [facility], [address] [place], [address], [place] tel:[phone] [facility] [place] No Information 5 [facility]. [address], [address], [place], [place], [address]. tel:[phone] Referring Provider: Yesy Eid, [address], [place], [address]. tel:[phone] [facility], [address] [place], [address], [place] tel:[phone] [facility] No Information 5 [facility]. [address], [address], [place], [place], [address]. tel:[phone] Referring Provider: Yesy Eid, [address], [place], [address]. tel:[phone] [facility], [address] [place], [address], [place] tel:[phone] [facility] No Information 5 Rio Dean. [address] [place], [place], [id number]. tel:[phone] Referring Provider: Yesy Eid, [address], [place], [address]. tel:[phone] [facility], [address] [place], [address], [place] tel:[phone] [facility] vision is improved OD (chief complaint)+ Dryness after gtts OD (chief complaint)D ur- QID ,rest-BID, Comb-QD-OD OD (chief complaint) No Information 5 Rio Dean. [address] [place], [place], [id number]. tel:[phone] Referring Provider: Yesy Eid, [address] [place], [address]. tel:[phone] [facility], [address] [place], [address], [place] tel:[phone] [facility] No Information Mar- 4 [facility]. [address] [place] [address], [address], [place], [place], [address]. tel:[phone] Referring Provider: Yesy Eid, [address] [place], [address]. tel:[phone] [facility], [address] [place], [address], [place] tel:[phone] ABELARDO Aviles Pt doing okay pain 2 on a 1-10 scale OD (chief complaint)D ur-QID, rest-BID, ltx-QHS-OD OD (chief complaint) No Information 4 [facility]. [address] [place] [address], [address], [place], [place], [address]. tel:[phone] Referring Provider: Yesy Eid, [address] [place], [address]. tel:[phone] [facility], [address] [place], [address], [place] tel:[phone] ABELARDO [facility] No Information Mar-2 3 4 [facility]. [address] [place] [address], [address], [place], [place], [address]. tel:[phone] Referring Provider: Yesy Eid, [address] [place], [address]. tel:[phone] [facility], [address] [place], [address], [place] tel:[phone] [facility] [place] No Information 4 [facility]. [address] [place], [place], [id number], [place]. tel:[phone] Referring Provider: Armando Ervin, [address] [place] [address] [address], [place], [address]. tel:[phone] [facility], [address] [place], [address], [place] tel:[phone] [facility] No Information 4 Surjit Oliveira. [address] [place], [place], [id number], [place]. tel:[phone] Referring Provider: Yesy Eid, [address] [place], [address]. tel:[phone] [facility], [address] [place], [address], [place] tel:[phone] [facility] no complaints OD (chief complaint)d ur qid, ltx osmin qhs, rest bid, levo bid OD (chief complaint) No Information 4 Rah Roberts. [address] [place] [address], [address], [place], [place], [address]. tel:[phone] Referring Provider: Yesy Eid, [address] [place], [address]. tel:[phone] [facility], [address] [place], [address], [place] tel:[phone] [facility] No Information 4 Rah Roberts. [address] [place] [address], [address], [place], [place], [address]. tel:[phone] Referring Provider: Yesy Eid, [address] [place], [address]. tel:[phone] [facility], [address] [facility], [address], [place] tel:[phone] [facility] No Information 0- 4 [facility] [facility] [address], [address], [place], [place], [id number]. tel:[phone] Referring Provider: Yesy Eid, [address] [place], [address]. tel:[phone] [facility], [address] [place], [address], [place] tel:[phone] [facility] No Information Mar- 0- 4 Surjti Oliveira. [address] [place], [place], [id number], [place]. tel:[phone] Referring Provider: Yesy Eid, [address] [place], [address]. tel:[phone] OFFICE/OUTPA TIENT VISIT, EST [facility], [address] [place], [address], [place] tel:[phone] [facility] [place] [facility] pain (chief complaint) No Information Dec-0 3 4 No Information Referring Provider: Yesy Eid, [address] [place], [address]. tel:[phone] OFFICE/OUTPA TIENT VISIT, EST [facility], [address] [place], [address], [place] tel:[phone] [facility] cornea follow up (chief complaint) No Information Dec-2 4 [facility]. [address] [place] [address], [address], [place], [place], [address]. tel:[phone] Referring Provider: Yesy Eid, [address] [place], [address]. tel:[phone] OFFICE/OUTPA TIENT VISIT, EST [facility], [address] [place], [address], [place] tel:[phone] [facility] [facility] Contact lens evaluation (chief complaint) No Information 4 Rio Dean. [address] [place], [place], [id number]. tel:[phone] Referring Provider: Yesy Eid, [address], [place], [address]. tel:[phone] OFFICE/OUTPA TIENT VISIT, EST [facility], [address] [place], [address], tel:[phone] [facility] cornea follow up (chief complaint) No Information 4 [facility]. [address] [place] [address], [address], [place], [place], [address]. tel:[phone] Referring Provider: Yesy Eid, [address], [place], [address]. tel:[phone] OFFICE/OUTPA TIENT VISIT, EST [facility]ician [facility], [address] [place], [place], [facility], tel:[phone] [facility] [place] cornea follow up (chief complaint) No Information 4 [facility]. [address] [place] [address], [address], [place], [place], [address]. tel:[phone] Referring Provider: Yesy Eid, [address] [place], [address]. tel:[phone] OFFICE/OUTPA TIENT VISIT, EST [facility], [address] [place], [address], [place] tel:[phone] [facility] [place] cornea follow up (chief complaint) No Information 4 [facility]. [address] [place] [address], [address], [place], [place], [address]. tel:[phone] Referring Provider: Yesy Eid, [address] [place], [address]. tel:[phone] OFFICE/OUTPA TIENT VISIT, EST [facility], [address] [place], [address], tel:[phone] [facility] No Information 4 Thomson Edward. [address] [place] [address] Road, [address], [place], [place], [address]. tel:[phone] Referring Provider: Yesy Eid, [address], [place], [address]. tel:[phone] OFFICE/OUTPA TIENT VISIT, EST [facility], [address] [place], [address], [place] tel: [phone] [facility] No Information 3 Thomson Edward. [address] [place] [address] Road, [address], [place], [place], [address]. tel:[phone] Referring Provider: Yesy Eid, [address] [place], [address]. tel:[phone] OFFICE/OUTPA TIENT VISIT, EST [facility], [address] [place], [address], [place] tel:[phone] [facility] No Information 3 Thomson Edward. [address] [place] [address] Road, [address], [place], [place], [address]. tel:[phone] Referring Provider: Yesy Eid, [address] [place], [address]. tel:[phone] OFFICE/OUTPA TIENT VISIT, EST [facility], [address] [place], [address], [place] tel: [phone] [facility] No Information 3 Thomson Edward. [address] [place] [address] Road, [address], [place], [place], [address]. tel:[phone] Referring Provider: Yesy Eid, [address] [place], [address]. tel:[phone] OFFICE/OUTPA TIENT VISIT, EST [facility], [address] [place], [address], [place] tel: [phone] [facility] No Information 3 [facility]. [address] [place] [address], [address], [place], [place], [address]. tel:[phone] Referring Provider: Yesy Eid, [address] [place], [address]. tel:[phone] OFFICE/OUTPA TIENT VISIT, EST [facility], [address] [place], [address], [place] tel:[phone] [facility] No Information 3 [facility]. [address] [place] [address], [address], [place], [place], [id number]. tel:[phone] Referring Provider: Yesy Eid, [address] [place], [address]. tel:[phone] OFFICE/OUTPA TIENT VISIT, EST [facility], [address] [place], [address], [place] tel:[phone] [facility] No Information 3 [facility]. [address] [place] [address], [address], [place], [place], [address]. tel:[phone] Referring Provider: Yesy Eid, [address] [place], [address]. tel:[phone] OFFICE/OUTPA TIENT VISIT, EST [facility], [address] [place], [address], [place] tel:[phone] [facility] No Information 3 [facility]. [address] [place] [address], [address], [place], [place], [address]. tel:[phone] Referring Provider: Yesy Eid, [address] [place], [address]. tel:[phone] OFFICE/OUTPA TIENT VISIT, EST [facility], [address] [place], [address], [place] tel:[phone] [facility] No Information 2 Rio Dean. [address] [place], [place], [id number]. tel:[phone] Referring Provider: Yesy Eid, [address], [place], [address]. tel:[phone] OFFICE/OUTPA TIENT VISIT, EST [facility], [address] [place], [address], [place] tel:[phone] [facility] [place] No Information 2 Monreal Edward. [address] [place] [address] Road, [address], [place], [place], [address]. tel:[phone] Referring Provider: Yesy Eid, [address] [place], [address]. tel:[phone] [facility], [address] [place], [address], [place] tel:[phone] [facility] [place] No Information 2 Monreal Edward. [address] [place] [address] Road, [address], [place], [place], [address]. tel:[phone] OFFICE/OUTPA TIENT VISIT, EST [facility], [address] [place], [address], [place] tel:[phone] [facility] No Information 2 Thomson Edward. [address] [place] [address] Road, [address], [place], [place], [address]. tel:[phone] Referring Provider: Yesy Eid, [address] [place], [address]. tel:[phone] OFFICE/OUTPA TIENT VISIT, EST [facility], [address] [place], [address], [place] tel:[phone] [facility] [place] [facility] No Information 2 Monreal Edward. [address] [place] [address] Road, [address], [place], [place], [address]. tel:[phone] Referring Provider: Yesy Eid, [address], [place], [address]. tel:[phone] OFFICE/OUTPA TIENT VISIT, EST [facility], [address] [place], [address], [place] tel:[phone] [facility] No Information 1 [facility]. [address] [place] [address], [address], [place], [place], [address]. tel:[phone] Referring Provider: Yesy Eid, [address], [place], [address]. tel:[phone] OFFICE/OUTPA TIENT VISIT, EST [facility], [address] [place], [address], [place] tel:[phone] [facility] No Information 1 [facility]. [address] [place] [address], [address], [place], [place], [address]. tel:[phone] Referring Provider: Yesy Eid, [address], [place], [address]. tel:[phone] OFFICE/OUTPA TIENT VISIT, EST [facility], [address] [place], [address], [place] tel:[phone] [facility] No Information 1 [facility]. [address] [place] [address], [address], [place], [place], [address]. tel:[phone] Referring Provider: Yesy Eid, [address], [place], [address]. tel:[phone] OFFICE/OUTPA TIENT VISIT, EST [facility], [address] [place], [address], [place] tel:[phone] [facility] [address] No Information 1 [facility]. [address] [place] [address], [address], [place], [place], [address]. tel:[phone] Referring Provider: Yesy Eid, [address], [place], [address]. tel:[phone] OFFICE/OUTPA TIENT VISIT, EST [facility]ician [facility], [address] [place], [address], tel:[phone] [facility] No Information 1 [facility]. [address] [place] [address], [address], [place], [place], [address]. tel:[phone] Referring Provider: Yesy Eid, [address] [place], [address]. tel:[phone] OFFICE/OUTPA TIENT VISIT, EST [facility] Physician s, [address] [place], [address], tel:[phone] [facility] No Information 0 1 [facility]. [address] [place] [address], [address], [place], [place], [address]. tel:[phone] Referring Provider: Yesy Eid, [address] [place], [address]. tel:[phone] OFFICE/OUTPA TIENT VISIT, EST [facility]ician [facility], [address] [place], [address], tel:[phone] [facility] No Information 0 [facility]. [address] [place] [address], [address], [place], [place], [address]. tel:[phone] Referring Provider: Armando Ervin, [address] [place] [address] [address], [place], [address]. tel:[phone] OFFICE/OUTPA TIENT VISIT, EST [facility]ician [facility], [address] [place], [address], tel:[phone] [facility] No Information 0 0 [facility]. [address] [place] [address], [address], [place], [place], [address]. tel:[phone] Family History Family Member Type Diagnosis Age [...] Insurance type Covered republican ID Christos gary(anya) [facility] - [id number] CI [id number] Social History Type Description Quantity Date Captured [...] it will need to be sent through [facility] Meds:pred 3/0xiidra 2/0 Reason For Referral Reason [...] it will need to be sent through [facility] Meds:pred 3/0xiidra 2/0 4-6 month f/u Pt [...] checked locally for possible retina issues and [facility] local md assured her everything [...] Valtrex 500 mg Qd, AT 6-8, & Hennessey 3's. 3 month glaucoma follow up The [...] has occasional dryness OD. glaucoma consult per [facility] The 17 year old female presents for evaluation of glaucoma consult per [facility] in the right and left eyes. States [...] Cornea ck [facility] 16 [facility] for evaluation of 3-4 [...] a sudden va decrease and saw a [employer] in [place] and they were supposed to send their notes to [facility]. I looked through pt's chart and [...] 6-8x daily OD-RTC when pt home from [facility] for fall break or prn (pt will call to schedule, ok to see [facility]/ERS/orEJR for next visit) Related to See impression details - Return - 4-6 week with Armando Monreal MD Related to See impression details - Decrease durezol t o QID ODCont Xiidra BID ODContinue Valtrex 500mg QDContinue AT's 6-8x daily OD Related to See impression details - Continue Durezol 6 x QD ODD/C Restasis Start Xiidra BID ODContinue Valtrex 500mg QDContinue AT's 6-8x daily OD Related to See impression details - Return 4-5 week(s) with Armando Monreal MD for follow up exam. Related to See impression details - Return [...] reasess with BMG3. F/U as scheduled with [facility] (include MR/MARILYNN at next [facility] visit as planned) Related to See impression details . CPM, increase t ears today2. RTC with [facility] as sched Related to See impression details - Return - keep current appointm ent Related to See impression details - -Continue current [id number]-[id number]-xo with [facility] as scheduled 0MR/MARILYNN next visit as before) Related to See impression details - Return - 2 months Related to S ee impression details - 1. CPM2. RTC [address] mo[address] [facility] or prn-marilynn, mr, iop, ejh Related to See impression details - add antibiotic x 3 days, cont other meds, rtc 1mo Related to See impression details - . add vig tid x 3 days2. rtc with [facility] as sched or prn Related to [...] to See impression details - [address] [facility] with Marilynn Related to See impression details - cont restasis bidd ecrease Durezol to QDacyclovir 400 mg PO BIDtopo next visit and consider suture removal Related to See impression details - Return in 4-6 weeks. Related t o DALK - -Consulted with MARIAN - [facility] recommends cyclo-RTC as scheduled with [facility] Related to DALK - -RTC 6-8 weeks, include MR/TOP O Related to rebubble - Return in 2-3 weeks. Related t o rebubble - Return in 1 week. Related to R ebubble - Return in 1 week. Related to R ebubble - Return in 1 week. Related to R ebubble - Return in 1 week. Related to D ALK - Return in 3 weeks Related to D ALK - Return in as scheduled Related to See impression details - 1. Proceed with BILLIE RICHARDSON as scheduled2. Upson AT use Related to See impression details - 1. Schedule DALK O D - Discussed risks, benefits, procedures and recovery. Patient desires to have surgery. Related to See impression details - Return in as scheduled Related to See impression details - Sent message to [facility] to determine next step, waiting to hear back Related to See impression and plan - return to ers for hard contact and marilynn od, per [facility] Related to See impression and plan - Return with ERS fo r marilynn and hard contact lens fit for the right eye. Explained in details for the vision disconnect. Related to See impression and plan - RETURN IN ONE MTH WITH [facility] Rel ated to See impression details - 1.Patient here tod ay for decreased vision in the right eye. Discussed with patient and family the need for a corneal transplant, along with risks and benefits. Will re-assess for surgery at next visit, to consider DALK.2. Decrease the Durezol to TID OD. scribed by patria Related to See impression details - RETURN WITH [facility] IN 2-3 WEEKS [place] [...] plan - RETURN IN [address] [facility] Re lated to See impression: general plan - HZV -DOING WELL NO INFLAMMATION- CORNEAL OPACITY OD- POST SUBCAPS CHARLY CATARCT OD- OBSERVE - 1. CPM. PATIENT IS STABLE WHILE ON STEROID EYE DROP AND ACYCLOVIR. 2. Educational materials provided:Primary Diagnosis.SCRIBED BY PATRIA Related to See impression: general plan 1.- [...] plan - RETURN IN [address] [facility]- MR OD Related to See impression: general plan - RETURN IN 3-[address] [facility]-CAT EVAL OD Related to POST SUBCAP [...] CATAR - RETURN IN 5-[address] [facility] R chiloated to See impression: general [...] KERATOCONJUNCT - return in 4 weeks with [facility]- mr iop check od Related to H ZOSTER KERATOCONJUNCT - RETURN NEXT TUESDAY WITH [facility] [place] Related to See impression: [...] plan - RETURN IN ONE WEEK WITH [facility] Re lated to H SIMPLEX KERATITIS ISK OD -INCREASED IN FLAMMATION ODINCREASED STROMAL HAZE OD - 1. INCREASE PRED TO EVERY TWO HOURS WHILE AWAKE FOR 4 DAYS THEN 6 TIMES A DAY FOR ONE WEEK. FOLLOW UP IN ONE WEEK.2. Educational materials provided:Primary Diagnosis. Related to H SIMPLEX KERATITIS 1. K SCAR, OD S/P HS V KERATITIS - NO ACTIVITY TODAY - 1. Patient instructed to continue current maintenance medications. Patient understands need for chronic use of medications in order to minimize risk of recurrence.2. Educational materials provided:Primary Diagnosis. 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
--- OUTSIDE RECORDS SUMMARY | 2024-08-31 12:23 | XMS_ITS | Encounter Summary ---
Author [place] [address] Care Team Providers Care Train Operator Name Role Phone Loan Vick MD Primary Care Provider [phone] Reason for Visit * Physical Medicine (Routine) - Authorized Specialty Diagnoses / Procedures Referred By Contac t Referred To Contact Physical Therapist / Physical Therapy Diagnoses Diagnosis unknown Procedures PELVIC FLOOR Iram Vlaladares, DO [address] [address] Phone: tel: fax: Raquel Torres, PT [address] [place] [address] Phone: tel: fax: Referral ID Status Reason Start Date Expiration Date V isits Requested Visits Authorized [id number] Authorized 08/31/2024 08/31/2025 1 90 Encounter Details Date Type Department Care Team (Latest Contact Info) Description 08/31/2024 12:23 PM EDT - 08/31/2024 11:59 PM EDT Hospital Encounter [facility] Physical Therapy [facility] [address] [place] [address] Raquel Torres, PT [address] [place] [address] Discharge Disposition: Home or Self Care Social History Tobacco Use Types Packs/Day Years Used Date Smoking Tobacco: Never Smokeless Tobacco: Never Alcohol Use Standard Drinks/Week Comments No 0 (1 standard drink = 0.6 oz pur e alcohol) PHQ-2 Answer Date Recorded PHQ-2 Total Score 0 01/30/2024 Sexually Active Control Partners Comments Not Currently Comments No Sex and Gender Information Value Date Recorded Sex Assigned at Not on file Legal Sex Female 4:28 AM EDT Gender Identity Not on file Sexual Orientation Not on file documented as of this encounter Functional Status * Is the person deaf or does he/she have serious difficulty hearing? Answer Date of Assessment Author No 06/14/2018 2:54 PM MAYUR Valente Do nna A, RMA * Is the person blind or does he/she have serious difficulty seeing even when wearing glasses? Answer Date of Assessment Author No 06/14/2018 2:54 PM MAYUR Valente Do nna A, RMA * Does this person have serious difficulty walking or climbing stairs? Answer Date of Assessment Author No 06/14/2018 2:54 PM MAYUR Valente Do nna A, RMA * Does this person have difficulty dressing or bathing? Answer Date of Assessment Author No 06/14/2018 2:54 PM MAYUR Valente Do nna A, RMA * Because of a physical, mental or emotional condition, does this person have difficulty doing errands alone such as visiting a doctor's office or shopping? Answer Date of Assessment Author No 06/14/2018 2:54 PM MAYUR Valente Do nna A, RMA documented as of this encounter Mental Status * Because of a physical, mental or emotional condition, does this person have serious difficulty concentrating, remembering or making decisions? Answer Entry Date Author No 06/14/2018 2:54 PM MAYUR Valente Do nna A, RMA documented in this encounter Medications at Time of Discharge desvenlafaxine succinate (PRISTIQ) 100 mg Oral Tablet Sustained Release 24 hrIndications:Generalize d anxiety disorder Take 1 Tablet by mouth daily. 90 Tablet 1 06/29/19 25 hydrOXYzine (ATARAX) 25 mg Oral TabletIndications:Genera lized anxiety disorder Take 1 Tablet by mouth 3 times daily as needed for Anxiety. 90 Tablet 2 06/29/19 25 Ascorbic Acid 500 mg Oral Tablet, ChewableIndications:Asco rbic acid deficiency Take 1 Tablet by mouth daily. 90 Tablet 1 03/16/20 24 Colesevelam 3.75 gram Oral Powder in Packet Take 3.75 g by mouth daily. 30 Packet 2 02/21/20 24 cyanocobalamin 1,000 mcg Oral TabletIndications:Vitami n B12 deficiency Take 1 Tablet by mouth daily. 90 Tablet 1 03/16/20 24 ergocalciferol (DRISDOL) 1,250 mcg (50,000 unit) Oral CapsuleIndications:Vitam in D deficiency Take 1 capsule daily with food for 14 days then take 1 capsule with food twice weekly for 3 mths. 38 Capsule 03/16/20 24 ferrous gluconate (FERGON) 324 mg (37.5 mg iron) Oral TabletIndications:Iron deficiency Take 1 Tablet by mouth daily (with breakfast). 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 16 Tablet 1 01/03/20 24 rosuvastatin (CRESTOR) 20 mg Oral TabletIndications:Famili al hypercholesterolemia Take 1 Tablet by mouth nightly. 90 Tablet 1 03/16/20 24 sod sulf-pot chloride-mag sulf (SUTAB) 1.479-0.188- 0.225 gram Oral TabletIndications:Rectal bleeding Take 12 Tablets by mouth Preprocedure for up to 1 dose. Take 1 kit (12 tablets twice) per physician instructions. 24 Tablet 03/28/20 24 traZODone (DESYREL) 100 mg Oral Tablet Take 100 mg by mouth as needed for Sleep. Pt takes 1/4-1/2 as needed documented as of this encounter Discharge Disposition Disposition Code Departure Means Destination Home or Self Care documented in this encounter Progress Notes * Chelle Mccrary - 08/31/2024 1:15 PM EDT Program_ID:[id number] Access Code: [email or web address] URL: [email or web address] Date: 08-31-2024 Prepared By: Raquel Torres Program Notes Exercises - Cat Cow - 1-2 x daily - 7 x weekly - sets - 10 reps - Supine Lower Trunk Rotation - 1-2 x daily - 7 x weekly - sets - 5 reps - Child's Pose Stretch - 1-2 x daily - 7 x weekly - sets - 5 reps - Half Kneeling Hip Flexor Stretch - 1-2 x daily - 7 x weekly - sets - 3-5 reps - Hip Flexor Stretch with Chair - 1-2 x daily - 7 x weekly - sets - 3-5 reps * Raquel Torres, PT - 08/31/2024 12:30 PM EDT Images from the original note were not included. Physical Therapy Pelvic Floor Evaluation Patient Name: Pili Kyle : 2000 Visit #: 1 Onset Date: 08/01/24 pain 1 month Diagnosis: pelvic pain during Restrictions/Precautions: [place] Physician: Vladimir ANDRE Follow Up: 09/11/24 she is high risk Evaluation Date: 08/31/2024 Reassessment Due: 10/01/24 Current Bladder treatment (meds):none Current Bowel treatment (supplements/meds):none [] Psyllium (amount): [] other Primary Insurance: ANTHEM/ANTHEM PPO Insurance Authorization: Physical Therapist Closed (08/31/2024-08/31/2025) Visits Requested Visits Authorized Visits Completed Visits Scheduled 1 1 1 -- Details Referral ID: [id number] Authorization Status Reason: -- Authorization Comments: -- Referred To: Raquel Torres, PT at [facility], [facility] Referred By: Iram Gilbert DO Creation Date: 08/27/2024 Referral Reasons: -- Referral Order: -- Time In/Out: 5516-5965 Timed Treatment Minutes: Therapeutic Exercise 25 minutes Total Timed Code Treatment Minutes: 25 Untimed Treatment Minutes: PT Eval Total Treatment Minutes: 59 This evaluation to serve as D/C summary if the patient doesn't return for further treatment. Beronica Kyle is a 23 y.o. female referred by Iram Gilbert DO to outpatient Physical Therapy with a primary diagnosis of: Diagnosis unknown Her 4th pregancy in 4 years 1y.o. to carry with difficulty: 30 pounds She had a CP kids, still , Girl : one year ago,-8-9 pounds: pain at 32 weeks. she had close to together> Jan 19 due date: not past She had pain started earlier in this She had lots of pain with last with rolling, transfers, dressing, bathing. She has hemmorhoids: she had KT tape but skin sensitive, belly binder. Has your problem been [x] getting worse [] stay the same [] getting better Have you ever had treatment for this problem [x] no [] yes (explain) Urinary frequency Daytime - normal Nighttime - [] 0 [x] 1 [] 2 [] 3 [] 4 other: Bowel problems - Frequency of BM - [] daily [x] qod [] Specify: Valsalva to defecate - [] yes [x] No [] sometimes [place] Stool chart type: [] 1 [] 2 [] 3 [] 4 [] 5 [] 6 [] 7 Using a squatty potty: [] yes [x] no Leakage frequency: Bladder: [] none [] daily [x] other (explain) only happens when she sneezes Bowel: [x] none [] yes, Frequency: Protection: Type: [x] none [] urinary pads [] menstrual pads [] Depends # / day: [] N/A [] 1 [] 2 [] 3 [] 4 [] 5 Fluid intake - [x] water - 1 fred per day [x] soda ( [x] regular [] diet) - per day [] coffee ( [] regular [] decaf) [] additives [] tea ( [] regular [] decaf) [] Other (explain) Caffeine use - [x] see above; explain: Hx UTI - [x] no [] yes OB History: OB History 1 Para Term AB Living SAB IAB Ectopic Multiple Live Births # of Pregnancies:4 # of Deliveries:2 [] [x] Vaginal Episiotomy / tearing: [x] yes [] no Normal post-amado healing - [x] yes [] no (explain) Pelvic History: Regular menstrual cycles - [] yes [x] no (explain) ([] menopause [] hysterectomy) UTD on pelvic screening / PAP test: [] yes [] no [x] N/A Pain: Pain with tampon use - [] yes [] no [x] N/A Pain with intercourse - [x] yes [] no [] N/A sore and painful aftewards Is pain a problem for which patient is seeking care? Yes Pain: Current Pain Level: 4 with only half day at work Location: groin, where leg meets torso, left > right Description: Pain is described as sharp and shooting, stabbing. Increases Pain: work, walking , running, getting up off the floor, getting dressed with pants, stepping up into bed. Decreases Pain: nothing but ice pack. 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 Have you received any Speech or Physical Therapy this year? [] yes [x] no Are you currently receiving any home health services? [] yes [x] no Any Problems with speech, communication, memory? [] yes (explain) [x] no Any barriers to learning? [] yes (explain) [x] no Recent falls? [] yes (explain) [x] no Pt's rating of overall health: [] Excellent [x] good [] fair [] poor Rate diet [] good [x] fair [] poor History of/current domestic violence [] yes [x] no Do you feel safe in your home? 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; Service: Ophthalmology COLONOSCOPY N/A 08/07/2015 COLONOSCOPY and ESOPHAGOGASTRODUODENOSCOPY with biopsy; Surgeon: Jamey Schwab MD; Location: [facility]; Service: Endoscopy 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 CT NEEDLE BIOPSY LIVER 02/07/2024 CT NEEDLE BIOPSY LIVER 02/07/2024 Eduardo Betancourt MD [facility] CT CYSTOSCOPY DENTAL SURGERY permanent retainer in mouth DILATION AND CURETTAGE OF UTERUS 09/2021 EYE SURGERY Right 11/05/2015 Surgeon: Armando Monreal MD; Location: [facility]; Service: Ophthalmology EYE SURGERY Right 02/24/2016 RIGHT EYE YAG LASER CAPSULOTOMY; Surgeon: Armando Monreal MD; Location: [facility]; Service: Ophthalmology KERATOPLASTY Right 03/27/2014 RIGHT EYE DEEP ANTERIOR LAMELLAR KERATOPLASTY (DALK) ; Surgeon: Armando Monreal MD; Location: [facility]; Service: Ophthalmology UPPER GASTROINTESTINAL ENDOSCOPY N/A 08/07/2015 Surgeon: Jamey Schwab MD; Location: [facility]; Service: Endoscopy (Not in a hospital admission) Current Outpatient Medications: Ascorbic Acid 500 mg Oral Tablet, Chewable, Take 1 Tablet by mouth daily., Disp: 90 Tablet, Rfl: 1 Colesevelam 3.75 gram Oral Powder in Packet, Take 3.75 g by mouth daily., Disp: 30 Packet, Rfl: 2 cyanocobalamin 1,000 mcg Oral Tablet, Take 1 Tablet by mouth daily., Disp: 90 Tablet, Rfl: 1 desvenlafaxine succinate (PRISTIQ) 100 mg Oral Tablet Sustained Release 24 hr, Take 1 Tablet by mouth daily., Disp: 90 Tablet, Rfl: 1 ergocalciferol (DRISDOL) 1,250 mcg (50,000 unit) Oral Capsule, Take 1 capsule daily with food for 14 days then take 1 capsule with food twice weekly for 3 mths., Disp: 38 Capsule, Rfl: 0 ferrous gluconate (FERGON) 324 mg (37.5 mg iron) Oral Tablet, Take 1 Tablet by mouth daily (with breakfast)., Disp: 90 Tablet, Rfl: 1 hydrOXYzine (ATARAX) 25 mg Oral Tablet, Take 1 Tablet by mouth 3 times daily as needed for Anxiety., Disp: 90 Tablet, Rfl: 2 rimegepant (NURTEC ODT) 75 mg Oral Tablet, Rapid Dissolve, Take 1 Tablet by mouth every other day.,Disp: 16 Tablet, Rfl: 1 rosuvastatin (CRESTOR) 20 mg Oral Tablet, Take 1 Tablet by mouth nightly., Disp: 90 Tablet, Rfl: 1 sod sulf-pot chloride-mag sulf (SUTAB) 1.479-0.188- 0.225 gram Oral Tablet, Take 12 Tablets by mouth Preprocedure for up to 1 dose. Take 1 kit (12 tablets twice) per physician instructions., Disp: 24Tablet, Rfl: 0 traZODone (DESYREL) 100 mg Oral Tablet, Take 100 mg by mouth as needed for Sleep. Pt takes 1/4-1/2 as needed, Disp: , Rfl: Allergies Allergen Reactions Penicillin Anaphylaxis Elavil Other (See Comments) seizures Penicillins Shortness Of Breath cough Raspberry Swelling Pt states tongue swelling Estimated body mass index is 38.73 kg/m?? as calculated from the following: Height as of 03/28/24: 5' 1 (1.549 m). Weight as of 03/28/24: 205 lb (93 kg). Objective [] FOTO / PSFS discussed with pt [x] FOTO was completed prior to PT session FOTO PFDI pain (+) PFDI Urinary (+) Bowel Cnst (*) Bowel Leakage (*) Urinary Problem (*) Bowel Problems PFDI Bowel(+) PFDI Prolapse (+) FOTO 42 FOTO Avg Avg Change # visits *higher score represents better pelvic floor functioning +lower score represents better pelvic floor functioning PSFS Activity 08/31/2024 Putting pants on 3 Having sex with 2 Walking more than a short distance 2 Observation: Posture: wnls Gait Analysis: wide YASMIN Lumbar Mobility: WNL for rx Mentation: alert and oreinted Palpation nothing TTP Neuro: [] NT Sensation (B) UEs: [x] intact Sensation (B) LEs: [x] intact Alt toe taps wnls Tone: [x] normal [] hypotonic [] hypertonic External : Sensation: [x] intact [] diminished [] absent Palpation: [] no tenderness to palpation noted [] tenderness / pain to palpation noted at : [] LA ([] Right [] Left [] Bilat) [] ATLA ([] Right [] Left [] Bilat) [x] OI ([] Right [] Left [x] Bilat) left > right [] post fourchette [] other (explain) Treatment: Shown and tried 2 different types of belts [x] Discussed rationale for daily fiber and / or miralax to improve the consistency and frequency of BMs. [x] Reviewed and demonstrated proper positioning and technique for defecation to reduce PFM stress,including use of foot stool / squatty potty. Education re: massage in PF area to decrease pain and tightness. [x] Pt instructed to use ample amounts of water based lubricant during intercourse to reduce pain and irritation . [x] Reviewed strategies to protect the pelvic floor from strain / prolapse. Access Code: [email or web address] URL: [email or web address] Date: 08/31/2024 Prepared by: Raquel Torres Exercises - Cat Cow - 1-2 x daily - 7 x weekly - 10 reps - 5 hold - Supine Lower Trunk Rotation - 1-2 x daily - 7 x weekly - 5 reps - 10 hold - Child's Pose Stretch - 1-2 x daily - 7 x weekly - 5 reps - 10-20 hold - Half Kneeling Hip Flexor Stretch - 1-2 x daily - 7 x weekly - 3-5 reps - 10- 20 hold - Hip Flexor Stretch with Chair - 1-2 x daily - 7 x weekly - 3-5 reps - 10-20 hold Patient/Family Instructed on: [] see handout [x] HEP [] refer to above information Patient's Response to teaching: Instruction/patient education, Verbalized understanding, Returned demonstration Assessment: Impression: Pili Kyle presents with signs and symptoms consistent with , round ligament, hip flexor, abdominal muscle pain during . Functional impairments and activity limitations include: walking , standing, putting on pants, getting up from the floor. . Pt would benefitfrom skilled physical therapy services in order to address Flexibility and Pain. Goals Rehab potential: [x] good [] fair [] poor [] guarded Short Term Goals: (set for 4 weeks) Update/Status Patient will be independent with HEP upon D/C in order to promote long-term health and reduce risk for injury. [x] Unmet [] Progressing [] Met Pt to demo understanding of healthy bowel and bladder habits to promote normal ADL function, limiting pain. [x] Unmet [] Progressing [] Met Radiation Oncologist Goals: (set for 8 weeks) Update/Status Decrease pain with walking and getting up by 50% [x] Unmet [] Progressing [] Met PSFS will improve by at least 2-3 representing an increase in function. [x] Unmet [] Progressing []Met Plan [] Continue per plan of care [] Alter current plan (see comments) [x] Plan of care initiated [] Hold pending MD visit [] Discharge Comment: Patient is recommended to be seen up to 1 time per week for 8 weeks. Treatments may consist of Therapeutic exercise 70582, Neuromuscular re-education 23845, Manual soft tissue and/or joint mobilization 83763, Patient education, and Therapeutic activity 62056. Patient present with co-morbidities of current or recent post and personal factorsof N/A that may impact patient/family's ability to Work, Attend social activities, Perform ADLs, and Engage in community. During today's evaluation, he/she presented with problem areas in musculoskeletal system, integumentary system, and neuromuscular system that are impacting functional activitiesand participation (see objective measures for further detail). Due to indicated course of physical therapy, the patient's presentation is evolving at this time. This patient presented today with moderate complexity. Reference Chart: Co-morbidities & Personal Factors Body system elements Presentation Clinical Decision Making Low Evaluation 0 1-2 Stable / Predictable Low Moderate Evaluation 1-2 3 or more Evolving/ Changing Moderate High Evaluation 3 or more 4 or more Unstable/ Unpredictable High Signature: Raquel Torres, PT Date: 08/31/2024 * Provider, Unknown - 08/31/2024 12:29 PM EDT documented in this encounter Plan of Treatment Not on file documented as of this encounter Goals Goal Patient Goal Type Associated Problems Recent Progress Patient-Stated? Author Eat better, exercise, reach an ideal body weight General No Maritza Cook, [facility] documented as of this encounter Visit Diagnoses Not on filedocumented in this encounter Care Teams Train Operator Relationship Specialty Start Date End Date Loan Vick MD [address] [place] [address] PCP - General Family Medicine 03/23/16 documented as of this encounter
--- OUTSIDE RECORDS SUMMARY | 2024-09-19 09:49 | XMS_ITS | Encounter Summary ---
Author [place] [address] Care Team Providers Care Senior Web Developer Name Role Phone Loan Vick MD Primary Care Provider +1- [phone] Reason for Visit * Physical Medicine (Routine) - Authorized Specialty Diagnoses / Procedures Referred By Contac t Referred To Contact Physical Therapist / Physical Therapy Diagnoses Diagnosis unknown Procedures PELVIC FLOOR Iram Valladares, DO [address] [address] Phone: tel: fax: Raquel Torres, PT [address] [place] [address] Phone: tel: fax: Referral ID Status Reason Start Date Expiration Date V isits Requested Visits Authorized [id number] Authorized 08/31/2024 08/31/2025 1 90 Encounter Details Date Type Department Care Team (Latest Contact Info) Description 09/19/2024 9:49 AM EDT - 09/19/2024 11:59 PM EDT Hospital Encounter [facility] Physical Therapy [facility] [address] [place] [address] Raquel Torres, PT [address] [place] [address] Discharge Disposition: Home or Self [...] Chelle Mccrary - 09/19/2024 10:51 AM EDT Program_ID:[id number] Access Code: [email or web address] URL: [email or web address] Date: 09-19-2024 Prepared By: Raquel Torres Program [...] 1 month Diagnosis: pelvic pain during Restrictions/Precautions: [place] Physician: Vladimir ANDRE Follow Up: 09/11/24 she is high risk Evaluation Date: 08/31/2024 Reassessment Due: 10/01/24 Current Bladder treatment (meds):none Current Bowel treatment (supplements/meds):none [] Psyllium (amount): [] other Primary Insurance: [employer] Insurance Authorization: Time In/Out: 1001/1050 Timed Treatment Minutes: Manual therapy techniques 16 [...] hip flexor, IT band STM Access Code: [email or web address] URL: [email or web address] Date: 09/19/2024 Prepared by: Raquel Torres Exercises [...] pain. [x] Unmet [] Progressing [] Met Alf Goals: (set for 8 weeks) Update/Status Decrease [...] on filedocumented in this encounter Care Teams Senior Web Developer Relationship Specialty Start Date End Date Loan Vick MD [address] [place] [address] PCP - General Family Medicine 03/23/16 documented as of this encounter
--- OUTSIDE RECORDS SUMMARY | 2024-10-22 09:50 | XMS_ITS | Encounter Summary ---
Author Organization [place] [address] Care Team Providers Care Battery Starter Name Role Phone Loan Vick MD Primary Care Provider +1- [phone] Encounter Details Date Type Department Care Team (Late st Contact Info) Description 08/30/2024 Orders Only [facility] Physical Therapy [facility] [address] [facility] [place] [address] Raquel Torres, PT [address] [place] [address] Social History Tobacco Use Types Packs/Day Years [...] of Assessment Author No 06/14/2018 2:54 PM EST Ambrosio, Do nna A, RMA * Is the [...] Author No 06/14/2018 2:54 PM MAYUR Valente nna A, RMA documented as of this encounter Mental Status * Because of a physical, mental or emotional condition, does this person have serious difficulty concentrating, remembering or making decisions? Answer Entry Date Author No 06/14/2018 2:54 PM MAYUR Ambrosio, nna A, RMA documented in this encounter Plan of Treatment Not on file documented as of this encounter Goals Goal Patient Goal Type Associated Problems Recent Progress Patient-Stated? Author Eat better, exercise, reach an ideal body weight General No Maritza Cook RMA documented as of this encounter Visit Diagnoses Not on filedocumented in this encounter Care Teams Battery Starter Relationship Specialty Start Date End Date Loan Vick MD [address] [place] [address] PCP - General Family Medicine 03/23/16 documented as of this encounter
--- OUTSIDE RECORDS SUMMARY | 2024-10-22 09:50 | XMS_ITS | Encounter Summary ---
Author Organization [place] [address] Care Team Providers Care Rehab Tech Name Role Phone Loan Vick MD Primary Care Provider +1- [phone] Reason for Visit * Reason Comments Medication Refill Encounter Details Date Type Department Care Team (Late st Contact Info) Description 04/21/2018 Refill [facility] [address] [facility] [place] [address] Loan Vick MD [address] [place] [address] Medication Refill Social History Tobacco Use Types Packs/Day Years Used Date Smoking Tobacco: Never Smokeless Tobacco: Never Alcohol Use Standard Drinks/Week Comments No 0 (1 standard drink = 0.6 oz pur e alcohol) Sexually Active Control Partners Comments Never Comments No Sex and Gender Information Value Date Recorded Sex Assigned at Not on file Legal Sex Female 4:28 AM EDT Gender Identity Not on file Sexual Orientation Not on file documented as of this encounter Functional Status * Is the person deaf or does he/she have serious difficulty hearing? Answer Date of Assessment Author No 06/18/2017 11:43 AM Iram Hull RMA * Is the person blind or does he/she have serious difficulty seeing even when wearing glasses? Answer Date of Assessment Author No 06/18/2017 11:43 AM Iram Hull PiresJULIO CESAR streeter * Does this person have serious difficulty walking or climbing stairs? Answer Date of Assessment Author No 06/18/2017 11:43 AM Iram Hull RMA * Does this person have difficulty dressing or bathing? Answer Date of Assessment Author No 06/18/2017 11:43 AM Stefan Hullronny WilliamJULIO CESAR streeter * Because of a physical, mental or emotional condition, does this person have difficulty doing errands alone such as visiting a doctor's office or shopping? Answer Date of Assessment Author No 06/18/2017 11:43 AM MAYUR KimberStefanIramronny PiresJULIO CESAR documented as of this encounter Mental Status * Because of a physical, mental or emotional condition, does this person have serious difficulty concentrating, remembering or making decisions? Answer Entry Date Author No 06/18/2017 11:43 AM MAYUR Quiroga Iram Pires JULIO CESAR documented in this encounter Plan of Treatment Not on file documented as of this encounter Goals Goal Patient Goal Type Associated Problems Recent Progress Patient-Stated? Author Eat better, exercise, reach an ideal body weight General No Maritza Cook RMA documented as of this encounter Visit Diagnoses Diagnosis Generalized anxiety disorder documented in this encounter Additional Health Concerns Infection Onset Date Last Indicated Resolved Time COVID-19 03/30/2020 03/30/2020 04/19/2020 10:1 2 PM EST R/O COVID-19 12/25/2020 12/25/2020 12/26/2020 12:2 8 AM EDT R/O COVID-19 05/11/2021 05/11/2021 05/12/2021 5:04 PM EST COVID-19 05/11/2021 05/11/2021 05/31/2021 10:1 2 PM EST INFLUENZA 12/10/2022 12/10/2022 12/24/2022 10:1 2 PM EDT documented as of this encounter Care Teams Rehab Tech Relationship Specialty Start Date End Date Loan Vick MD [address] [place] [phone] PCP - General Family Medicine 03/23/16 documented as of this encounter
--- OUTSIDE RECORDS SUMMARY | 2024-10-22 09:50 | XMS_ITS | Encounter Summary ---
Author Organization [facility] Address [address] [facility] [place] [address] Care Team Providers Care Coffee Break Attendant Name Role Phone Loan Vick MD Primary Care Provider +1- [phone] Encounter Details Date Type Department Care Team (Latest Contact Info) Description 01/25/2017 Lab Requisition [facility] [address] [place] [id number] Claudia Granado, KJ Encounter for screening for infections with predominantly sexual mode of transmission Social History Tobacco Use Types Packs/Day Years [...] on file documented as of this encounter Plan of Treatment Not on file documented as of this encounter Goals Goal Patient Goal Type Associated Problems Recent Progress Patient-Stated? Author Eat better, exercise, reach an ideal body weight General No Maritza Cook RMA documented as of this encounter Procedures Procedure Name Priority Date/Time Associated Diagnosis Comments CHLAMYDIA/GC Today 01/25/2017 10:19 AM EDT Encounter for screening for infections with predominantly sexual mode of transmission CHLAMYDIA/GC BY TMA Today 01/25/2017 10:19 AM EDT Encounter for screening for infections with predominantly sexual mode of transmission documented in this encounter Results * CHLAMYDIA/GC BY TMA (01/25/2017 10:19 AM EDT) Chlamydia trachomatis Not Detected Not Detected 01/26/2017 11:41 AM EDT [facility] Neisseria gonorrhoeae Not Detected Not Detected 01/26/2017 11:41 AM EDT [facility] Swab (specimen) 01/25/2017 1 0:19 AM EDT 01/25/2017 5:18 PM EDT Narrative [facility] - 01/26/2017 11:41 AM EDT Testing methodology is director writing mediated amplification (TMA) using the Aptima Combo 2 assay from [employer]. A negative result does not completely rule out a Chlamydia trachomatis or Neisseria gonorrhoeae infection due to potential inhibitors or levels present below the limit of detection by this assay. Results are dependent on proper collection and transport of specimen. This test is indicated for medical purposes only and should not be used for legal or forensic purposes. The performance characteristics of this test were validated by [facility]. This assay is FDA cleared to test the following specimens: clinician-collected endocervical, vaginal and male urethral swab specimens, patient collected vaginal specimens within a clinic setting, Thin Prep Specimens in [employer], and first-stream, unpreserved male urine specimens. Testing on female urine is not FDA approved by this methodology, but has been developed and validated by the [facility] laboratory. Detailed methodology is available upon request. Claudia Granado APRN MICROBIOLOGY - GENERAL ORD ERABLES Final Result [facility] [address] [place] [address] documented in this encounter Visit Diagnoses Diagnosis Encounter for screening for infections with predominantly sexual mode of transmission Screening examination for venereal disease documented in this encounter Additional Health Concerns Infection Onset Date Last Indicated Resolved Time COVID-19 03/30/2020 03/30/2020 04/19/2020 10:1 2 PM EST R/O COVID-19 12/25/2020 12/25/2020 12/26/2020 12:2 8 AM EDT R/O COVID-19 05/11/2021 05/11/2021 05/12/2021 5:04 PM EST COVID-19 05/11/2021 05/11/2021 05/31/2021 10:1 2 PM EST INFLUENZA 12/10/2022 12/10/2022 12/24/2022 10:1 2 PM EDT documented as of this encounter Care Teams Coffee Break Attendant Relationship Specialty Start Date End Date Loan Vick MD [address] [place] [address] PCP - General Family Medicine 03/23/16 documented as of this encounter
--- OUTSIDE RECORDS SUMMARY | 2024-10-22 09:50 | XMS_ITS | Clinical Summary ---
Author Organization 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 16 Tablet 1 024 Active traZODone (DESYREL) 100 mg Oral Tablet Take 100 mg by mouth as needed for Sleep. Pt takes 1/-2 as needed Active Colesevelam 3.75 gram Oral Powder in Packet Take 3.75 g by mouth daily. 30 Packet 2 024 Active ergocalciferol (DRISDOL) 1,250 mcg (50,000 unit) Oral CapsuleIndications:Simona min D deficiency Take 1 capsule daily with food for 14 days then take 1 capsule with food twice weekly for 3 mths. 38 Capsule Active ferrous gluconate (FERGON) 324 mg (37.5 mg iron) Oral TabletIndications:Iron deficiency Take 1 Tablet by mouth daily (with breakfast). 90 Tablet 1 024 Active cyanocobalamin 1,000 mcg Oral TabletIndications:Vitam in B12 deficiency Take 1 Tablet by mouth daily. 90 Tablet 1 024 Active Ascorbic Acid 500 mg Oral Tablet, ChewableIndications:Asc orbic acid deficiency Take 1 Tablet by mouth daily. 90 Tablet 1 024 Active rosuvastatin (CRESTOR) 20 mg Oral TabletIndications:Famil ial hypercholesterolemia Take 1 Tablet by mouth nightly. 90 Tablet 1 024 Active sod sulf-pot chloride-mag sulf (SUTAB) 1.479-0.188- 0.225 gram Oral TabletIndications:Recta l bleeding Take 12 Tablets by mouth Preprocedure for up to 1 dose. Take 1 kit (12 tablets twice) per physician instructions. 24 Tablet 024 Active desvenlafaxine succinate (PRISTIQ) 100 mg Oral Tablet Sustained Release 24 hrIndications:Generaliz ed anxiety disorder Take 1 Tablet by mouth daily. 90 Tablet 1 025 Active hydrOXYzine (ATARAX) 25 mg Oral TabletIndications:Gener alized anxiety disorder Take 1 Tablet by mouth 3 times daily as needed for Anxiety. 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 Will update your with genetic results when available in the next few weeks in case adjustment is needed. Please share with your family, if wish, about you having a genetic cholesterol called (Lipoprotein Little A). This cholesterol can lead to heart attacks and strokes at a younger age. They might benefit from having that checked through their primary care. Info about this test is in this link Lp(a) - NLA Elevated liver enzymes 12/21/2023 Stillbirth with antepartum 10/03/2023 Overview (10/03/2023): 09/05/23 FHx: cerebral palsy 10/03/2023 Overview (10/03/2023): Her son Rush Endometritis 09/13/2023 Vitamin D deficiency 04/13/2022 Assessment & Plan (03/05/2024 4:38 PM EST): Orders: VITAMIN D 25 HYDROXY; Future PARATHYROID HORMONE INTACT; Future IONIZED CALCIUM - INPATIENT; Future VITAMIN D, 1,25-DIHYDROXY -REF LAB; Future Dyslipidemia 04/13/2022 Overview (02/21/2024): Persistently elevated LDL labs 11/11/2023 Total cholesterol 303 with LDL 239 HDL at goal 44, normal triglycerides Assessment & Plan (02/21/2024 5:13 PM EST): Labs 11/11/2023 Total cholesterol 303 with LDL 239 consistent over multiple years HDL at goal 44, normal triglycerides No clear underlying cause. No evidence of kidney disease or diabetes, suspect familial hypercholesterolemia. 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 Deven Chinchilla via phone who reminded that cholesterol is essential in and that high cholesterol for short time typically does not warrant treatment. 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 Risk of not treating until after her childbearing is over is significant. Morbidity and mortality associated with untreated hypercholesterolemia must be considered. Check lipoprotein a Plan to start bile acid sequestrant colesevelam (also consider cholestyramine) as it is not systemically absorbed and considered safe during . Need to monitor some vitamins such as vitamin K. May need to consider more than typical vitamin supplementation. 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 [address] Raquel Torres, PT Discharge Disposition: Home or Self Care 08/31/2024 12:23 PM EDT - 08/31/2024 11:59 PM EDT Hospital Encounter [address] [place] [address] Raquel Torres, PT Discharge Disposition: Home or Self Care 08/30/2024 Orders Only [facility] Physical [address] [place] [address] Raquel Torres, PT from Last 3 Months Immunizations Immunization Administration Dates Next Due DTaP 12/17/1999, 0,07/06/1999,06/04,02/02/1999 Hepatitis A, Adult 12/02/2017 Hepatitis A, Ped/Adol, 2 Dose 04/15/2016 Hepatitis B, Unspecified Formulation 07/19/2000, 07/06/1999,06/04/1999 HiB, Unspecified Formulation 12/17/1999, 07/06/1999,06/04/1999,02/02 IPV 06/12/2003, 0,06/04/1999,02/02 Influenza Vaccine Quadrivalent 9,01/24/2017,04/15/2016,02/05,03/04/2014 Influenza Vaccine Quadrivalent PF 04/08/2023, Influenza Vaccine, Unspecifi ed Formulation 01/18/2018,02/12/2013 MMR 06/12/2003,12/17/1999 Meningococcal Conjugate 12/02/2017,08/24/2012 Moderna SARS-CoV-2 Vaccine 1 2+ Yrs (Light blue border) 05/27/2020,04/29/2020 PPD Test 03/06/2019 Tdap 09/04/2021,12/09/2009 Varicella 12/17/1999 Surgical History Surgery Date Site/Laterality Comments CYSTOSCOPY KERATOPLASTY 03/27/2014 Right RIGHT EYE DEEP ANTERIOR LAMELLAR KERATOPLASTY (DALK) ; Surgeon: Armando Monreal MD; Location: [facility]; Service: Ophthalmology Medical devices from this surgery are in the Medical Devices section. 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 COLONOSCOPY 08/07/2015 N/A COLONOSCOPY and ESOPHAGOGASTRODUODENOSCOPY with biopsy; Surgeon: Jamey Schwab MD; Location: [facility]; Service: Endoscopy UPPER GASTROINTESTINAL ENDOSCOPY 08/07/2015 N/A Surgeon: Jamey Schwab MD; Location: [facility]; Service: Endoscopy DENTAL SURGERY permanent retainer in mouth CATARACT REMOVAL 11/05/2015 Right RIGHT EYE CATARACT EXTRACTION WITH PHACOEMULSIFICATION AND INTRAOCULAR LENS WITH RIGHT EYE WOUND REVISION ; Surgeon: Armando Monreal MD; Location: [facility]; Service: Ophthalmology Medical devices from this surgery are in the Medical Devices section. EYE SURGERY 11/05/2015 Right Surgeon: Armando Monreal MD; Location: [facility]; Service: Ophthalmology Medical devices from this surgery are in the Medical Devices section. 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/2014 Asthma was told once sh e had allergic asthma, but has never had any other issues with ashtma and no inhaler now Irritable bowel syndrome Seizures (HCC) atypical febrile seizure at 18 months of age-none since them Headache(784.0) migraines rare Herpes virus disease affected ey e, needed corneal transplant Wears glasses H/O Kawasaki's disease 2003 Vitamin D deficiency 04/13/2022 Dyslipidemia 04/13/2022 Family History Medical History Relation Name Comments Diabetes Father High Blood Pressure Father Migraines Maternal Grandfather Rheum Arthritis Mother Aneurysm Other maternal great grandfath bra in Other Sister raynaud's Anesth Problems Neg Hx Relation Name Status Comments Brother Alive Father Alive Maternal Grandfather Mother Alive Other maternal great grandfath Sister Alive Social History Tobacco Use Types Packs/Day Years Used Date Smoking Tobacco: Never Smokeless Tobacco: Never Tobacco Cessation:Counseling Given: Not Answered Alcohol Use Standard Drinks/Week Comments No 0 (1 standard drink = 0.6 oz pur e alcohol) PHQ-2 Answer Date Recorded PHQ-2 Total Score 0 01/30/2024 Sexually Active Control Partners Comments Not Currently Comments No Sex and Gender Information Value Date Recorded Sex Assigned at Not on file Legal Sex Female 4:28 AM EDT Gender Identity Not on file Sexual Orientation Not on file Obstetrics History Para Term AB IAB SAB Ectopic Multiple Livin g Live Births 1 Date Outcome GA Total Labor Labor/2nd/3rd Weight Sex Type Anes PTL Ktarina A1 A5 Name Clin Last Filed Vital Signs Vital Sign Reading Time Taken Comments Blood Pressure 104/71 03/28/2024 9:05 AM EST Pulse 90 03/28/2024 9:05 AM EST Temperature 36.5 C (97.7 F) 02/21/2024 8:33 AM EST Respiratory Rate 16 02/07/2024 11:50 AM EDT Oxygen Saturation 98% 02/21/2024 8:33 AM EST Inhaled Oxygen Concentration - - Weight 93 kg (205 lb) 03/28/2024 9:05 AM EST Height 154.9 cm (5' 1 ) 03/28/2024 9:05 AM EST Body Mass Index 38.73 03/28/2024 9:05 AM EST Plan of Treatment Health Maintenance Due Date Last Done Comments HPV (1 - 3-dose series) 2013 Pneumococcal Vaccine 0-49 (1 of 2 - PCV) 2017 Cervical Cancer Screening 05/12/2023 Pap Smear 05/12/2023 05/12/2020 COVID-19 Vaccine ( - season) 2023 05/27/2020, 04/29/2020 Annual Wellness Exam 04/08/2024 04/08/2023 Influenza Vaccine (#1) 2024 3, 04/08/2022, 12/18/2019, Additional history exists DTaP/TDaP/Td (8 - Td or Tdap) 06/20/2033 06/21/2023, 09/04/2021, 12/09/2009, Additional history exists Hepatitis B Vaccine Completed 07/19/2000, 07/06/1999, 06/04/1999 Chlamydia Screening Discontinued 05/12/2020, 11/16/2018, 01/25/2017 Meningococcal B Vaccine Aged Out No l onger eligible based on patient's age to complete this topic Goals Goal Patient Goal Type Associated Problems Recent Progress Patient-Stated? Author Eat better, exercise, reach an ideal body weight General No Maritza Cook, Keith Medical Devices Implanted Type Area Job Analysis Manager Device Identifier Shelf Expiration Date Model / Serial / Lot Cornea Tissue - [id number] Implanted:Qty: 1 on 03/27/2014 by Armando Monreal MD at [facility] Right: Eye UNKNOWN 04/01/2014 [id number] / [id number] / Lens Intraocular Preloaded 19.0 Diopter - [id number] Implanted:Qty: 1 on 11/05/2015 by Armando Monreal MD at [facility] Right: Eye EL LAB:SURG 03/17/2018 [id number] / [id number] / Procedures Procedure Name Priority Date/Time Associated Diagnosis Comments GC CHLAMYDIA THIN PREP Routine 05/12/2020 11:00 AM EST Well adult exam GRINDER AND PLATER CYTOLOGY REQUEST (PAP ONLY) Routine 05/12/2020 11:00 AM EST Well adult exam from Last 3 Months or Most Recently Relevant to Health Maintenance Results * GRINDER AND PLATER CYTOLOGY REQUEST (PAP ONLY) (05/12/2020 11:00 AM EST) CASE REPORT Gynecologic Cytology Report Case: [id number] Authorizing Provider: Loan Vick MD Collected: 05/12/2020 1100 Ordering Location: [facility] Received: 05/12/2020 1100 First Screen: Leesa Jose CT Specimen: LIQUID-BASED PAP - CERVICAL/ENDOCERV ICAL, Cervix, Endocervical 05/14/2020 10:48 AM EST [facility] PAP FINAL DIAGNOSIS Negative for intraepithelial lesion or malignancy 05/14/2020 10:48 AM EST [facility] at 1048 EST MICROSCOPIC DESCRIPTION Microscopic examination is performed and the findings corroborate the diagnosis 05/14/2020 10:48 AM EST [facility] PAP SMEAR ADEQUACY Satisfactory for evaluation 05/14/2020 10:48 AM EST [facility] ENDOCERVICAL T-ZONE Transformation zone absent. 05/14/2020 10:48 AM EST [facility] EMBEDDED IMAGES 10:48 AM [facility] PAP DISCLAIMER The Pap Smear is a screening test that aids in the detection of cervical cancer and cancer precursors. Both false positive and false negative results can occur. The test should be used at regular intervals, and positive results should be confirmed before definitive therapy. Processed using the ThinPrep Production Material Handler Automated cytology screening device (eBillme). 05/14/2020 10:48 AM [facility] Thin Prep ENDOCERVICAL STRUCTURE / Unknown 05/12/2020 11:00 AM EST 05/12/2020 11:00 AM EST us Loan Vick MD CYTOLOGY ORDERABLES Final Result [address] [address] * GC CHLAMYDIA THIN PREP (05/12/2020 11:00 AM EST) Chlamydia trachomatis Not Detected Not Detected 05/13/2020 5:39 PM EST [facility] Neisseria gonorrhoeae Not Detected Not Detected 05/13/2020 5:39 PM EST [facility] Thin Prep SPECIMEN FROM UTERINE CERVIX / Unknown 05/12/2020 11:00 AM EST 05/12/2020 11:00 AM EST Narrative [facility] - 05/13/2020 5:39 PM EST Testing methodology is geologist petroleum mediated amplification (TMA) using the Aptima Combo 2 assay from [employer]. A negative result does not completely rule out a Chlamydia trachomatis or Neisseria gonorrhoeae infection due to potential inhibitors or levels present below the limit of detection by this assay. Results are dependent on proper collection and transport of specimen. This test is indicated for medical purposes only and should not be used for legal or forensic purposes. The performance characteristics of this assay were validated by the testing laboratory. This assay is FDA cleared to test the following specimens: clinician-collected endocervical, vaginal, male urethral swab specimens, rectal swabs, and throat/pharyngeal swabs; patient collected vaginal specimens within a clinic setting; Thin Prep Specimens in PreservCyt Solution; and first-stream, unpreserved male and female urine specimens. Detailed methodology is available upon request. Loan Vick MD MICROBIOLOGY - GENERAL ORD ERABLES Final Result [employer] [address] [place] [address] , [place] [address] from Last 3 Months or Most Recently Relevant to Health Maintenance Insurance [employer] PPO [address] [place] [address] RADHA PPO RADHA PPO Care Teams Chain Maker Loom Control Relationship Specialty Start Date End Date Loan Vick MD [address] [place] [phone] (work) PCP - General Family Medicine 03/23/16
[2024-10-22 11:21] LABS: Hematocrit 33.2 % (37.0-47.0); Hemoglobin 11.0 g/dL (12.2-16.2); Immature Granulocytes % 1.5 %; Mean Corpuscular HGB Conc 33.1 g/dL (31.8-35.4); Mean Corpuscular Hemoglobin 29.6 pg (27.0-31.2); Mean Corpuscular Volume 89.2 fl (81-99); Nucleated Red Blood Cells % 0 %; Platelet Count 195 K/mm3 (142-424); Red Blood Count 3.72 M/mm3 (4.20-5.40); Red Cell Distribution Width-SD 45.0 fL; White Blood Count 11.2 K/mm3 (4.8-10.8)
[2024-10-22 11:31] LABS: Glucose 1 Hour 95 mg/dL (74-100)
[2024-10-23 07:09] LABS: RPR W/RFX Titers Nonreactive (Nonreactive)
== END 2024-10-22 23:59 | disposition home or self-care (01) ==
LOC: LAB 09:38
PROVIDERS: PCP Family Medicine; Visit Provider Obstetrics & Gynecology
DX: O36.60X0 Maternal care for excessive fetal growth, unspecified trimester, not applicable or unspecified (principal); Z37.1 Single stillbirth
CPT/HCPCS: 36415; 82947; 85025; 86592

== ENCOUNTER 2024-10-29 09:44 | Outpatient (CLI) | payer BC, SELFPAY ==
--- OUTSIDE RECORDS SUMMARY | 2024-10-29 09:49 | XMS_ITS | Clinical Summary ---
Author Organization [facility] Address [address] [address] Phone Care Team Providers Care Network Security Officer Name Role Phone Unavailable Unavailable Conditions or Problems No information available. Medications No information available. Medications Administered No information available. Allergies, Adverse Reactions, Alerts No information available. Results No information available. Plan of Care No information available. Procedures Code Procedure Name Date Entry Date CPT-05353 COVID-19 Moderna CPT-0012A IZ administration - COVID-19 - Moderna 2n d dose CPT-88698 COVID-19 Moderna CPT-70915 IZ administration - injection - single 20 08/05/11 Vital Signs No information available. Immunizations Vaccine Administration Date Standard Description CVX Co de Dose Moderna COVID-19 Vaccine Intramuscular Suspension 100 MCG/0.5ML Moderna COVID-19 Vaccine Intramuscular Suspension 100 MCG/0.5ML 207 0.5 mL Moderna COVID-19 Vaccine Intramuscular Suspension 100 MCG/0.5ML Dose 2 Moderna COVID-19 Vaccine Intramuscular Suspension 100 MCG/0.5ML Dose 2 207 0.5 mL Advance Directives No information available.
[2024-10-29 09:50] VITALS: BMI 41.5
[2024-10-29 09:55] VITALS: BP 112/64; PULSE 98; RESP 17; TEMP 37.2; O2SAT 99; BMI 40.2
[2024-10-29 10:03] LABS: Microscopic, Urine URINE MICROSCOPIC (MICROSCOPIC)
[2024-10-29 10:06] LABS: Bilirubin,Urine Negative (Negative); Color,Urine YELLOW (Yellow); Glucose,Urine (UA) Negative (Negative); Ketones,Urine Negative (Negative); Leukocyte Esterase,Urine TRACE (Negative); PH,Urine 7.5 (5.0-8.5); Protein,Urine Negative (Negative); Specific Gravity, Urine 1.020 (1.005-1.030); Urobilinogen,Urine 0.2 EU/dl (0.2)
--- NOTE | 2024-10-29 10:08 | US_ITS ---
PROCEDURE: US OB BIOPHYSICAL PROFILE CLINICAL INDICATION: Decreased movement w/ hx of stillbirth COMPARISON: US US OB <= 14 WEEKS FETUS from 06/04/2024 FINDINGS: Transabdominal sonographic images of the uterus were obtained. From her established due date she is 28weeks 2days. The following parameters are obtained: Viable Fetus in the cephalic presentation with a posterior placenta grade 1. Cervix measures 3.0 cm Measurements: heart Rate = 156bpm Amniotic fluid index: 16.11cm , MVP 5.88 cm Qualitative AFV:2 Breathing movements: 2 Gross Body Movements: 2 Tone: 2 Biophysical profile score: 8 No obvious anomalies evident.Kidneys, profile, stomach, bladder, four-chamber heart, three-vessel cord appear normal. IMPRESSION: 1. Viable fetus in the cephalic presentation with a posterior placenta grade 1. 2. The fluid is within normal limits with an amniotic fluid index 16.11 cm, MVP 5.88 cm. 3. Biophysical profile is 8/8 with good breathing movement and movement seen. 4. Limited anatomical scan appears normal. Dictated by: Driss Rice MD 10/29/2024 13:43 Driss Rice MD in [place] 10/29/2024 13:43
[2024-10-29 10:18] LABS: Bacteria,Urine 1+ /lpf
== END 2024-10-29 11:50 | disposition home or self-care (01) ==
LOC: OBOUT 09:47 → OB 09:48
PROVIDERS: PCP Family Medicine; Visit Provider Obstetrics & Gynecology
DX: O36.8120 Decreased fetal movements, second trimester, not applicable or unspecified (principal); O09.292 Supervision of pregnancy with other poor reproductive or obstetric history, second trimester; Z3A.27 27 weeks gestation of pregnancy
CPT/HCPCS: 59025; 76819; 81001; 99212; G0463

== ENCOUNTER 2024-11-01 14:18 | Outpatient (CLI) | payer BC, SELFPAY ==
--- OUTSIDE RECORDS SUMMARY | 2024-09-19 09:49 | XMS_ITS | Encounter Summary ---
Author Organization [place] [address] Care Team Providers Care Physician Office Rep Name Role Phone Loan Vick MD Primary Care Provider +1- [phone] Reason for Visit * Physical Medicine (Routine) - Authorized Specialty Diagnoses / Procedures Referred By Contac t Referred To Contact Physical Therapist / Physical Therapy Diagnoses Diagnosis unknown Procedures PELVIC FLOOR Iram Valladares, DO [address] [address] Phone: tel: fax: Raquel Torres, PT [address] [place] [address] Phone: tel: fax: Referral ID Status Reason Start Date Expiration Date V isits Requested Visits Authorized [id number] Authorized 08/31/2024 08/31/2025 1 90 Encounter Details Date Type Department Care Team (Latest Contact Info) Description 09/19/2024 9:49 AM EDT - 09/19/2024 11:59 PM EDT Hospital Encounter [facility] Physical Therapy [facility] [address] [place] [address] Raquel Torres, PT [address] [place] [address] Discharge Disposition: Home or Self [...] Chelle Mccrary - 09/19/2024 10:51 AM EDT Program_ID:[id number] Access Code: [email or web address] URL: [email or web address] Date: 09-19-2024 Prepared By: Raquel Torres Program [...] 1 month Diagnosis: pelvic pain during Restrictions/Precautions: [place] Physician: Vladimir ANDRE Follow Up: 09/11/24 she is high risk Evaluation Date: 08/31/2024 Reassessment Due: 10/01/24 Current Bladder treatment (meds):none Current Bowel treatment (supplements/meds):none [] Psyllium (amount): [] other Primary Insurance: [employer] Insurance Authorization: Time In/Out: 1006/1050 Timed Treatment Minutes: Manual therapy techniques 16 [...] hip flexor, IT band STM Access Code: [email or web address] URL: [email or web address] Date: 09/19/2024 Prepared by: Raquel Torres Exercises [...] pain. [x] Unmet [] Progressing [] Met Fpc Goals: (set for 8 weeks) Update/Status Decrease [...] on filedocumented in this encounter Care Teams Physician Office Rep Relationship Specialty Start Date End Date Loan Vick MD [address] [place] [address] PCP - General Family Medicine 03/23/16 documented as of this encounter
--- OUTSIDE RECORDS SUMMARY | 2024-11-01 14:21 | XMS_ITS | Clinical Summary ---
Author Organization [facility] Address [address] [address] Phone Care Team Providers Care Foreign Exchange Dealer Name Role Phone Unavailable Unavailable Conditions or Problems No information available. Medications No information available. Medications Administered No information available. Allergies, Adverse Reactions, Alerts No information available. Results No information available. Plan of Care No information available. Procedures Code Procedure Name Date Entry Date CPT-34808 COVID-19 Moderna CPT-0012A IZ administration - COVID-19 - Moderna 2n d dose CPT-13007 COVID-19 Moderna CPT-81430 IZ administration - injection - single 20 [...]
--- OUTSIDE RECORDS SUMMARY | 2024-11-01 14:22 | XMS_ITS | Encounter Summary ---
Author Organization [place] [address] Care Team Providers Care Customer Care Assistant Name Role Phone Loan Vick MD Primary Care Provider +1- [phone] Encounter Details Date Type Department Care Team (Late st Contact Info) Description 08/30/2024 Orders Only SE Physical Therapy [facility] [address] [facility] [place] [address] Raquel Torres, PT [address] [place] [address] Social History Tobacco Use Types [...] on filedocumented in this encounter Care Teams Customer Care Assistant Relationship Specialty Start Date End Date Loan Vick MD [address] [place] [address] PCP - General Family Medicine 03/23/16 documented as of this encounter
--- OUTSIDE RECORDS SUMMARY | 2024-11-01 14:22 | XMS_ITS | Encounter Summary ---
Author Organization [place] [address] Care Team Providers Care Medical Supply Technician Name Role Phone Loan Vick MD Primary Care Provider +1- [phone] Reason for Visit * Reason Comments Medication Refill Encounter Details Date Type Department Care Team (Late st Contact Info) Description 04/21/2018 Refill [facility] [address] [facility] [place] [address] Loan Vick MD [address] [place] [address] Medication Refill Social History Tobacco [...] documented as of this encounter Care Teams Medical Supply Technician Relationship Specialty Start Date End Date Loan Vick MD [address] [place] [phone] PCP - General Family Medicine 03/23/16 documented as of this encounter
--- OUTSIDE RECORDS SUMMARY | 2024-11-01 14:22 | XMS_ITS | Encounter Summary ---
Author Organization [facility] Address [address] [facility] [place] [address] Care Team Providers Care Senior Contracts Administrator Name Role Phone Loan Vick MD Primary Care Provider +1- [phone] Encounter Details Date Type Department Care Team (Latest Contact Info) Description 01/25/2017 Lab Requisition [facility] [address] [place] [id number] Claudia Granado, KJ Encounter for screening for [...] Detected Not Detected 01/26/2017 11:41 AM EDT [facility] Neisseria gonorrhoeae Not Detected Not Detected 01/26/2017 11:41 AM EDT [facility] Swab (specimen) 01/25/2017 1 0:19 AM EDT 01/25/2017 5:18 PM EDT Narrative [facility] - 01/26/2017 11:41 AM EDT Testing methodology is blow pit operator mediated amplification (TMA) using the Aptima Combo 2 assay from [employer]. A negative result does not completely rule [...] characteristics of this test were validated by [facility] laboratory. This assay is FDA cleared to test the following specimens: clinician-collected endocervical, vaginal and male urethral swab specimens, patient collected vaginal specimens within a clinic setting, Thin Prep Specimens in PreservCyt Solution, and first-stream, unpreserved male urine specimens. Testing on female urine is not FDA approved by this methodology, but has been developed and validated by the [facility] laboratory. Detailed methodology is available upon request. Claudia Granado APRN MICROBIOLOGY - GENERAL ORD ERABLES Final Result [facility] [address] [place] [address] documented in this encounter Visit Diagnoses Diagnosis [...] documented as of this encounter Care Teams Senior Contracts Administrator Relationship Specialty Start Date End Date Loan Vick MD [address] [place] [address] PCP - General Family Medicine 03/23/16 documented as of this encounter
--- OUTSIDE RECORDS SUMMARY | 2024-11-01 14:22 | XMS_ITS | Clinical Summary ---
Author Organization [facility] Address [address] [place] [address] Phone Care Team Providers Care Scheduling Manager Name Role Phone Loan Vick MD Primary Care Provider +1- [phone] Allergies Active Allergy Reactions Criticality Noted Date [...] mouth as needed for Sleep. Pt takes 1/-12 as needed Active Colesevelam 3.75 gram Oral [...] inhibitors are contraindicated due to desire for email engineer - Discussed with Dr. Deven Chinchilla via phone who reminded that cholesterol is essential in and that high cholesterol for short time typically does not warrant treatment. I do agree but feel that treatment is warranted for her senior living health as her cholesterol has been significantly [...] - 09/19/2024 11:59 PM EDT Hospital Encounter [facility] Physical Therapy [address] [place] [address] Raquel Torres, PT Discharge Disposition: Home or Self Care 08/31/2024 12:23 PM EDT - 08/31/2024 11:59 PM EDT Hospital Encounter [address] [place] [address] Raquel Torres, PT Discharge Disposition: Home or Self Care 08/30/2024 Orders Only [facility] Physical [address] [place] [address] Raquel Torres, PT from Last 3 Months [...] (DALK) ; Surgeon: Armando Monreal MD; Location: [facility]; Service: Ophthalmology Medical devices from this surgery are in the Medical Devices section. 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 COLONOSCOPY 08/07/2015 N/A COLONOSCOPY and ESOPHAGOGASTRODUODENOSCOPY with biopsy; Surgeon: Jamey Schwab MD; Location: [facility] ENDOSCOPY; Service: Endoscopy UPPER GASTROINTESTINAL ENDOSCOPY 08/07/2015 N/A Surgeon: Jamey Schwab MD; Location: [facility] ENDOSCOPY; Service: Endoscopy DENTAL SURGERY permanent retainer in mouth CATARACT REMOVAL 11/05/2015 Right RIGHT EYE CATARACT EXTRACTION WITH PHACOEMULSIFICATION AND INTRAOCULAR LENS WITH RIGHT EYE WOUND REVISION ; Surgeon: Armando Monreal MD; Location: [facility]; Service: Ophthalmology Medical devices from this surgery are in the Medical Devices section. EYE SURGERY 11/05/2015 Right Surgeon: Armando Monreal MD; Location: [facility]; Service: Ophthalmology Medical devices from this surgery are in the Medical Devices section. EYE SURGERY 02/24/2016 Right RIGHT EYE YAG LASER CAPSULOTOMY; Surgeon: Armando Monreal MD; Location: [facility]; Service: Ophthalmology DILATION AND CURETTAGE OF UTERUS 09/16/2021 - 10/15/2021 CT NEEDLE BIOPSY LIVER 02/07/2024 CT NEEDLE BIOPSY LIVER 02/07/2024 Eduardo Betancuort MD [facility] CT Medical History Medical History Date [...] Labor Labor/2nd/3rd Weight Sex Type Anes PTL Katrina A1 A5 Name Clin Last Filed Vital [...] ideal body weight General No Maritza Cook, JULIO CESAR Medical Devices Implanted Type Area Unhairing Machine Operator Device Identifier Shelf Expiration Date Model / Serial / Lot Cornea Tissue - [id number] Implanted:Qty: 1 on 03/27/2014 by Armando Monreal MD at [facility] Right: Eye UNKNOWN 04/01/2014 [id number] / [id number] / Lens Intraocular Preloaded 19.0 Diopter - [id number] Implanted:Qty: 1 on 11/05/2015 by Armando Monreal MD at [facility] Right: Eye EL LAB:SURG 03/17/2018 [id number] / [id number] / Procedures Procedure Name Priority Date/Time Associated Diagnosis Comments SCANNED LABS 10/24/2024 5:33 PM EDT GC CHLAMYDIA THIN PREP Routine 05/12/2020 11:00 AM EST Well adult exam HEAT TREAT SUPERVISOR CYTOLOGY REQUEST (PAP ONLY) Routine 05/12/2020 11:00 AM EST Well adult exam from Last 3 Months or Most Recently Relevant to Health Maintenance Results * SCANNED LABS (10/24/2024 5:33 PM EDT) 10/24/2024 5:33 PM EDT us Unknown Provider HEMATOLOGY ORDERABLES Final Res ult * HEAT TREAT SUPERVISOR CYTOLOGY REQUEST (PAP ONLY) (05/12/2020 11:00 AM EST) CASE REPORT Gynecologic Cytology Report Case: [id number] Authorizing Provider: Loan Vick MD Collected: 05/12/2020 1100 Ordering Location: [facility] Received: 05/12/2020 1100 First Screen: Leesa Jose CT Specimen: LIQUID-BASED PAP - CERVICAL/ENDOCERV ICAL, Cervix, Endocervical 05/14/2020 10:48 AM EST [facility] PAP FINAL DIAGNOSIS Negative for intraepithelial lesion or malignancy 05/14/2020 10:48 AM EST [facility] at 1048 EST MICROSCOPIC DESCRIPTION Microscopic examination is performed and the findings corroborate the diagnosis 05/14/2020 10:48 AM EST [facility] PAP SMEAR ADEQUACY Satisfactory for evaluation 05/14/2020 10:48 AM EST [facility] ENDOCERVICAL T-ZONE Transformation zone absent. 05/14/2020 10:48 AM EST [facility] EMBEDDED IMAGES 10:48 AM EST [facility] PAP DISCLAIMER The Pap Smear is a screening test that aids in the detection of cervical cancer and cancer precursors. Both false positive and false negative results can occur. The test should be used at regular intervals, and positive results should be confirmed before definitive therapy. Processed using the ThinPrep Refrigeration Unit Repairer Automated cytology screening device ([employer]). 05/14/2020 10:48 AM EST [facility] Thin Prep ENDOCERVICAL STRUCTURE / Unknown 05/12/2020 11:00 AM EST 05/12/2020 11:00 AM EST us Loan Vick MD CYTOLOGY ORDERABLES Final Result [facility] [address] [place] [address] * GC CHLAMYDIA THIN PREP (05/12/2020 11:00 AM EST) Chlamydia trachomatis Not Detected Not Detected 05/13/2020 5:39 PM EST [facility] [employer] [facility] Neisseria gonorrhoeae Not Detected Not Detected 05/13/2020 5:39 PM EST [facility] [employer] [facility] Thin Prep SPECIMEN FROM UTERINE CERVIX / Unknown 05/12/2020 11:00 AM EST 05/12/2020 11:00 AM EST Narrative [facility] [employer] [facility] - 05/13/2020 5:39 PM EST Testing methodology is hypercil core transformer assembler mediated amplification (TMA) using the Aptima Combo 2 assay from [employer]. A negative result does not completely rule [...] MICROBIOLOGY - GENERAL ORD ERABLES Final Result [facility] [employer] [facility] [address] [facility], [place] [address] from Last 3 Months or Most Recently Relevant to Health Maintenance Insurance [employer] PPO ANTHEM PPO Care Teams Scheduling Manager Relationship Specialty Start Date End Date Loan Vick MD [address] [place] [address] PCP - General Family Medicine 03/23/16
[2024-11-01 16:45] LABS: Hemoglobin A1C 5.6 % (4.0-6.0)
== END 2024-11-01 23:59 | disposition home or self-care (01) ==
LOC: LAB 14:19
PROVIDERS: PCP Family Medicine; Visit Provider Obstetrics & Gynecology
DX: O24.419 Gestational diabetes mellitus in pregnancy, unspecified control (principal)
CPT/HCPCS: 36415; 83036

== ENCOUNTER 2024-11-10 07:22 | Outpatient (CLI) | payer BC, SELFPAY ==
--- OUTSIDE RECORDS SUMMARY | 2022-03-09 07:20 | XMS_ITS | Continuity of Care Document ---
Author Organization [facility] Address [address] [place] [address] Phone Care Team Providers Care Concrete Polisher Name Role Phone Armando Monreal MD Unavailable Unavailable Allergies, Adverse Reactions, Alerts Substance Reaction Status Criticality PENICILLIN DifficultyBreathing Active No Infor mation PENICILLIN Coughing(moderate) Active No Inform ation AMITRIPTYLINE HCL Seizure(severe) Active No Info rmation Penicillins Hives / Skin Rash(moderate) Active No Information Medications Medication Instructions Dosage Effective Dates (start - stop) Status Comments Xiidra 5 % eye drops in a dropperette instill 1 drop by ophthalmic route 2 times every day into the right eye - Active 90 day supply PRIOR AUTH HAS BEEN APPROVED THROUGH 02-24-2023 Valtrex 500 mg tablet take 1 tablet by oral route every day 500 MG - Active Pristiq 100 mg tablet,extended release take 1 tablet by oral route every day 100 MG - Active Gabby 0.35 mg tablet take 1 tablet by oral route every day 1.00 tablet - Active Saxenda 3 mg/0.5 mL (18 mg/3 mL) subcutaneous pen injector inject (3MG) by subcutaneous route every day in the abdomen, thigh, or upper arm 3 MG - Active Durezol 0.05 % eye drops instill 1 drop by ophthalmic route 3 times a day into the right eye - No Longer Active ok to sub Difluprednate prednisolone acetate 1 % eye drops,suspension instill 1 Drop by Ophthalmic route 3 times every day into the right eye - No Longer Active THIS REPLACES THE DUREZOL Zoloft 100 mg tablet take 1 tablet by oral route every day 100 MG - No Longer Active Procedures Procedure Date OFFICE/OUTPATIENT VISIT, EST, Moderate N OFFICE/OUTPATIENT VISIT, EST, Low OFFICE/OUTPATIENT VISIT, EST, Low OFFICE/OUTPATIENT VISIT, EST OFFICE/OUTPATIENT VISIT, EST OFFICE/OUTPATIENT VISIT, EST OFFICE/OUTPATIENT VISIT, EST OFFICE/OUTPATIENT VISIT, EST OFFICE/OUTPATIENT VISIT, EST Ophthal DX Image Posterior Seg I And R U ni Or Bi Visual Field Examination W I And R Exten ded Tech Comp Uni Or Bi Ophthal DX Image Posterior Seg I And R U ni Or Bi Visual Field Examination W I And R Exten ded Prof Comp Uni Or Bi OFFICE/OUTPATIENT VISIT, EST OFFICE/OUTPATIENT VISIT, EST ECHO EXAM OF EYE, THICKNESS Tech Comp De ECHO EXAM OF EYE, THICKNESS Prof Comp De Fundus Photography With I And R TECH COM P Bilateral Fundus Photography With I And R PROF COM P Bilateral Gonioscopy Bilateral OFFICE/OUTPATIENT VISIT, EST OFFICE/OUTPATIENT VISIT, EST Eye Exam Established Patient Comprehensi ve 1 Or More Visits OFFICE/OUTPATIENT VISIT, EST OFFICE/OUTPATIENT VISIT, EST Visual Field Examination W I And R Exten ded Uni Or Bi OFFICE/OUTPATIENT VISIT, EST OFFICE/OUTPATIENT VISIT, EST OFFICE/OUTPATIENT VISIT, EST OFFICE/OUTPATIENT VISIT, EST OFFICE/OUTPATIENT VISIT, EST Closure Of Punctum By Plug Each Corneal Topography With I And R 017 OFFICE/OUTPATIENT VISIT, EST Post Op Follow Up Visit Post Op Follow Up Visit Discission Of Secondary Membranous Catar act Yag 1 Or More Stages OFFICE/OUTPATIENT VISIT, EST Post Op Follow Up Visit Post Op Follow Up Visit CATARACT SURGERY, COMPLEX Corneal Relaxing Inc For CrctOf Sx Induc ed Astig OFFICE/OUTPATIENT VISIT, EST Ophthalmic Biometry W Iol Calculation Un ilateral Ophthalmic Biometry W Iol Calculation Un ilateral OFFICE/OUTPATIENT VISIT, EST OFFICE/OUTPATIENT VISIT, EST Corneal Topography With I And R 016 OFFICE/OUTPATIENT VISIT, EST Corneal Topography With I And R 016 OFFICE/OUTPATIENT VISIT, EST OFFICE/OUTPATIENT VISIT, EST OFFICE/OUTPATIENT VISIT, EST OFFICE/OUTPATIENT VISIT, EST OFFICE/OUTPATIENT VISIT, EST OFFICE/OUTPATIENT VISIT, EST OFFICE/OUTPATIENT VISIT, EST Corneal Topography With I And R 015 OFFICE/OUTPATIENT VISIT, EST Corneal Topography With I And R 015 OFFICE/OUTPATIENT VISIT, EST OFFICE/OUTPATIENT VISIT, EST OFFICE/OUTPATIENT VISIT, EST Corneal Topography With I And R 015 OFFICE/OUTPATIENT VISIT, EST Post Op Follow Up Visit Post Op Follow Up Visit Post Op Follow Up Visit Post Op Follow Up Visit Post Op Follow Up Visit Post Op Follow Up Visit Post Op Follow Up Visit Post Op Follow Up Visit FOLLOW-UP SURGERY OF EYE Pt Documented Not To Have Experienced De Pt W/O Preop Order IV Revision Repair Of Eye Wound Early Late Major Minor Post Op Follow Up Visit Post Op Follow Up Visit Post Op Follow Up Visit Keratoplasty Corneal Transplant Anterior Lamellar Keratoplasty Corneal Transplant Anterior Lamellar Asst Surgeon OFFICE/OUTPATIENT VISIT, EST OFFICE/OUTPATIENT VISIT, EST OFFICE/OUTPATIENT VISIT, EST OFFICE/OUTPATIENT VISIT, EST OFFICE/OUTPATIENT VISIT, EST OFFICE/OUTPATIENT VISIT, EST OFFICE/OUTPATIENT VISIT, EST OFFICE/OUTPATIENT VISIT, EST OFFICE/OUTPATIENT VISIT, EST OFFICE/OUTPATIENT VISIT, EST OPHTHALMIC BIOMETRY OPHTHALMIC BIOMETRY OFFICE/OUTPATIENT VISIT, EST OFFICE/OUTPATIENT VISIT, EST OFFICE/OUTPATIENT VISIT, EST OFFICE/OUTPATIENT VISIT, EST OFFICE/OUTPATIENT VISIT, EST OFFICE/OUTPATIENT VISIT, EST OFFICE/OUTPATIENT VISIT, EST OFFICE/OUTPATIENT VISIT, EST OFFICE/OUTPATIENT VISIT, EST OFFICE/OUTPATIENT VISIT, EST OFFICE/OUTPATIENT VISIT, EST OFFICE/OUTPATIENT VISIT, EST OFFICE/OUTPATIENT VISIT, EST OFFICE/OUTPATIENT VISIT, EST OFFICE/OUTPATIENT VISIT, EST OFFICE/OUTPATIENT VISIT, EST Advance Directives Directive Yes / No Effective Date File Name No Information Encounters Encounter Description Practice Location Reason(s) For Visit Diagnoses Date Provider Providers Copied on Encounter OFFICE/OUTPA TIENT VISIT, EST, Moderate [facility], [address] [place], [address], [place] tel:[phone] [facility] s/p DALK OD (chief complaint) Corneal transplant statusDry eye syndrome of bilateral lacrimal glands 2 [facility]. [address] [place] [address] Road, [address], [place], [place], [address]. tel:[phone] Referring Provider: Yesy Eid, [address], [place], [address]. tel:[phone] [facility], [address] [place], [place], [facility], [place] tel:[phone] [facility] No Information 2 [facility]. [address] [place] [address] Road, [address], [place], [place], [id number]. tel:[phone] [facility], [address] [place], [place], [facility], [place] tel:[phone] [facility] No Information 2 [facility]. [address] [place] [address], [address], [place], [place], [address]. tel:[phone] OFFICE/OUTPA TIENT VISIT, EST, Low [facility], [address] [place], [address], [place] tel:[phone] [facility] [place] 4-6 month f/u (chief complaint) Irregular astigmatism, right eyeCorneal transplant statusPresenc e of intraocular lens 1 [facility]. [address] [place] [address], [address], [place], [place], [address]. tel:[phone] Referring Provider: Yesy Eid, [address], [place], [address]. tel:[phone] OFFICE/OUTPA TIENT VISIT, EST, Low [facility], [address] [place], [address], [place] tel:[phone] [facility] [place] blurry vision follow up (chief complaint) Corneal transplant statusVitreou s degeneration of right eyePhotopsia of right eyeHeadache, unspecifiedDr y eye syndrome of bilateral lacrimal glands 1 Radha Landa. [address] [place], [place], [id number], . tel:[phone] Referring Provider: No Ref Doc No Referring Doc. OFFICE/OUTPA TIENT VISIT, EST [facility], [address] [place], [address], [place] tel:[phone] [facility] 4 mo corneal ck (chief complaint) Dry eye syndrome of bilateral lacrimal glandsCorneal transplant rejectionCorn eal transplant statusPresenc e of intraocular lens Oct-3 0-202 0 [facility]. [address] [place] [address], [address], [place], [place], [address]. tel:[phone] Referring Provider: Armando Ervin, [address] [place] [address] [address], [place], [address]. tel:[phone] OFFICE/OUTPA TIENT VISIT, EST [facility], [address] [place], [place], [facility], tel:[phone] [facility] 3-4 mo corneal follow up (chief complaint) Corneal transplant statusDry eye of right sideIrregular astigmatism, right eye Akshat-0 9-202 0 [facility]. [address] [place] [address], [address], [place], [place], [address]. tel:[phone] Referring Provider: Armando Ervin, [address] [place] [address] [address], [place], [address]. tel:[phone] OFFICE/OUTPA TIENT VISIT, EST [facility], [address] [place], [place], [facility], [place] tel:[phone] [facility] 5 mo corneal f/u (chief complaint) Corneal transplant statusPresenc e of intraocular lensDry eye syndrome of bilateral lacrimal glands Oct-0 201 9 [facility]. [address] [place] [address], [address], [place], [place], [address]. tel:[phone] Referring Provider: Armando Ervin, [address] [place] [address] [address], [place], [address]. tel:[phone] OFFICE/OUTPA TIENT VISIT, EST [facility], [address] [place], [address], [place] tel:[phone] [facility] 4 month glaucoma follow up (chief complaint) At low risk for open-angle glaucoma in both eyesCorneal transplant statusPresenc e of intraocular lens 9 Tati Garcia. [address] [place], [place], [id number]. [phone] Referring Provider: Radha Walsh, [address] [place], [address]. [phone] OFFICE/OUTPA TIENT VISIT, EST [facility], [address] [place], [address], [place] tel:[phone] [facility] 4 month cornea follow up (chief complaint) Corneal transplant statusPresenc e of intraocular lensDry eye syndrome of bilateral lacrimal glands 9 Rah Roberts. [address] [place] [address] Road, [address], [place], [place], [address]. tel:[phone] Referring Provider: Armando Ervin, [address] [place] [address] Road [address], [place], [address]. tel:[phone] OFFICE/OUTPA TIENT VISIT, EST [facility], [address] [place], [address], [place] tel:[phone] [facility] 3 month glaucoma follow up (chief complaint) At low risk for open-angle glaucoma in both eyes 9 Juancarmine Naqvissica. [address] [place], [place], [address]. [phone] Referring Provider: No Ref Doc No Referring Doc. OFFICE/OUTPA TIENT VISIT, EST [facility], [address] [place], [address], [place] [phone] [facility] 3 month cornea follow up (chief complaint) Corneal transplant status 9 Rah Roberts. [address] [place] [address] Road, [address], [place], [place], [address]. tel:[phone] Other Provider: Yesy Eid, [address] [place], [address]. tel:[phone] ng Provider: No Ref Doc No Referring Doc. OFFICE/OUTPA TIENT VISIT, EST [facility], [address] [place], [address], [place] tel:[phone] [facility] [place] [facility] glaucoma consult per [facility] (chief complaint) At low risk for open-angle glaucoma in both eyesPresence of intraocular lensCorneal transplant status 8 Tati Garcia. [address] [place], [place], [id number]. tel:[phone] Referring Provider: No Ref Doc No Referring Doc. OFFICE/OUTPA TIENT VISIT, EST [facility], [address] [place], [address], [place] tel:[phone] [facility] 2 month cornea follow up (chief complaint) Corneal transplant statusDry eye of right sidePseudopha malou Oct-0 8 [facility]. [address] [place] [address], [address], [place], [place], [address]. tel:[phone] Referring Provider: No Ref Doc No Referring Doc. OFFICE/OUTPA TIENT VISIT, EST [facility], [address] [place], [address], [place] tel:[phone] [facility] cornea follow up (chief complaint) Corneal transplant rejectionCorn eal transplant status 8 Rio Dean. [address] [place], [place], [address]. tel:[phone] Referring Provider: No Ref Doc No Referring Doc. [facility], [address] [place], [address], [place] tel:[phone] [facility] 4-6 wk Cornea ck (chief complaint) Corneal transplant statusCorneal transplant rejectionDry eye syndrome of bilateral lacrimal glandsPseudop hakia 8 [facility]. [address] [place] [address], [address], [place], [place], [address]. tel:[phone] Referring Provider: No Ref Doc No Referring Doc. OFFICE/OUTPA TIENT VISIT, EST [facility], [address] [place], [address], tel:[phone] [facility] cornea follow up (chief complaint) Corneal transplant statusDry eye syndrome of bilateral lacrimal glandsPseudop hakiaCorneal transplant rejection 8 [facility]. [address] [place] [address], [address], [place], [place], [address]. tel:[phone] Referring Provider: No Ref Doc No Referring Doc. OFFICE/OUTPA TIENT VISIT, EST [facility], [address] [place], [place], [facility], tel:[phone] [facility] 3-4 mo Cornea ck (chief complaint) Dry eye of right sideCorneal transplant statusBlurry vision, right eyePseudophak ia 8 [facility]. [address] [place] [address], [place] [address], [place], [place], [address]. tel:[phone] Referring Provider: No Ref Doc No Referring Doc. OFFICE/OUTPA TIENT VISIT, EST [facility], [address] [place], [place], [facility], tel:[phone] [facility] headaches (chief complaint) Corneal transplant statusDry eye of right sidePseudopha kiaPersistent headaches 8 Cristobal Healiq. [address] [place], [place], [address], [place]. tel:[phone] Referring Provider: No Ref Doc No Referring Doc. OFFICE/OUTPA TIENT VISIT, EST [facility], [address] [place], [address], [place] tel:[phone] [facility] 5 mo cornea fu (chief complaint) Corneal transplant statusDry eye of right sidePseudopha malou 8 [facility]. [address] [place] [address], [address], [place], [place], [address]. tel:[phone] Referring Provider: No Ref Doc No Referring Doc. OFFICE/OUTPA TIENT VISIT, EST [facility], [address] [place], [address], [place] tel:[phone] [facility] 3-4 mo check (chief complaint) Corneal transplant statusPseudop hakia [facility]. [address] [place] [address], [address], [place], [place], [address]. tel:[phone] Referring Provider: Armando Ervin, [address] [place] [address] [address], [place], [address]. tel:[phone] OFFICE/OUTPA TIENT VISIT, EST [facility], [address] [place], [address], [place] tel:[phone] [facility] 3 [place] CORNEA FU (chief complaint) Corneal transplant statusDry eye of right side [facility]. [address] [place] [address], [address], [place], [place], [address]. tel:[phone] Referring Provider: Yesy Eid, [address] [place], [address]. tel:[phone] OFFICE/OUTPA TIENT VISIT, EST [facility], [address] [place], [address], [place] tel:[phone] [facility] cornea check (chief complaint) Corneal transplant statusPseudop hakiaDry eye of right side 7 [facility]. [address] [place] [address], [address], [place], [place], [address]. tel:[phone] Referring Provider: Yesy Eid, [address], [place], [address]. tel:[phone] OFFICE/OUTPA TIENT VISIT, EST [facility], [address] [place], [address], [place] tel:[phone] [facility] [place] pain (chief complaint) Corneal transplant statusPhotops ia of right eyeBlurry vision, right eye 7 Jaya Riverat. [address], [address], [place], [address], [place]. tel:[phone] Referring Provider: Yesy Eid, [address], [place], [address]. tel:[phone] [facility], [address] [place], [address], [place] tel:[phone] [facility] [place] Follow Up of 4-6 Yag (chief complaint) Corneal transplant statusPseudop hakiaEncntr for f/u exam aft trtmt for cond oth than malig neoplm 6 No Information Referring Provider: Yesy Eid, [address] [place], [address]. tel:[phone] [facility], [address] [place], [address], [place] tel:[phone] [facility] Encntr for f/u exam aft trtmt for cond oth than malig neoplm 6 No Information Referring Provider: Yesy Eid, [address], [place], [address]. [phone] [facility], [address] [place], [address], [place] tel:[phone] [facility] Other secondary cataract, right eye 6 [facility]. [address] [place] [address], [address], [place], [place], [address]. tel:[phone] Referring Provider: Yesy Eid, [address], [place], [address]. tel:[phone] OFFICE/OUTPA TIENT VISIT, EST [facility], [address] [place], [address], [place] tel:[phone] [facility] Other secondary cataract, right eye 6 [facility]. [address] [place] [address], [address], [place], [place], [address]. tel:[phone] Referring Provider: Yesy Eid, [address] [place], [address]. tel:[phone] [facility], [address] [place], [address], [place] tel:[phone] [facility] Encntr for f/u exam aft trtmt for cond oth than malig neoplm 6 Rio Dean. [address] [place], [place], [address]. tel:[phone] Referring Provider: Yesy Eid, [address] [place], [address]. tel:[phone] [facility], [address] [place], [address], [place] tel:[phone] [facility] Presence of intraocular lens 6 No Information Referring Provider: Yesy Eid, [address] [place], [address]. tel:[phone] [facility], [address] [place], [address], [place] tel:[phone] [facility] Other age-related cataractAge-r elated nuclear cataract, right eyeIrregular astigmatism, right eye [facility]. [address] [place] [address], [address], [place], [place], [address]. tel:[phone] Referring Provider: Yesy Eid, [address] [place], [address]. tel:[phone] OFFICE/OUTPA TIENT VISIT, EST [facility], [address] [place], [address], [place] tel:[phone] [facility] cataract evaluation (chief complaint) Corneal transplant statusPosteri or subcapsular polar age-related cataract, right eye [facility]. [address] [place] [address], [address], [place], [place], [address]. tel:[phone] Referring Provider: Yesy Eid, [address], [place], [address]. tel:[phone] OFFICE/OUTPA TIENT VISIT, EST [facility], [address] [place], [address], [place] tel:[phone] [facility] pain OD (chief complaint) Corneal transplant statusPosteri or subcapsular polar age-related cataract, right eye Apr-2 6 [facility]. [address] [place] [address], [address], [place], [place], [address]. tel:[phone] Referring Provider: Yesy Eid, [address], [place], [address]. tel:[phone] OFFICE/OUTPA TIENT VISIT, EST [facility], [address] [place], [address], [place] tel:[phone] [facility] cornea follow up (chief complaint) Corneal transplant statusRegular astigmatism, right eye Apr-1 6 [facility]. [address] [place] [address], [address], [place], [place], [address]. tel:[phone] Referring Provider: Yesy Eid, [address], [place], [address]. tel:[phone] OFFICE/OUTPA TIENT VISIT, EST [facility], [address] [place], [address], [place] tel:[phone] [facility] 2 WEEK FU DALK OD (chief complaint) Corneal transplant statusPosteri or subcapsular polar age-related cataract, right eye Mar-0 6 [facility]. [address] [place] [address], [address], [place], [place], [address]. tel:[phone] Referring Provider: Yesy Eid, [address], [place], [address]. tel:[phone] OFFICE/OUTPA TIENT VISIT, EST [facility], [address] [place], [address], [place] tel:[phone] [facility] redness (chief complaint) Corneal transplant status 6 No Information Referring Provider: Yesy Eid, [address] [place], [address]. tel:[phone] OFFICE/OUTPA TIENT VISIT, EST [facility], [address] [place], [address], [place] tel:[phone] [facility] Urgent (chief complaint) Corneal transplant status 6 Riooscar Dean. [address] [place], [place], [address]. tel:[phone] Referring Provider: Yesy Eid, [address] [place], [address]. tel:[phone] OFFICE/OUTPA TIENT VISIT, EST [facility], [address] [place], [address], [place] tel:[phone] [facility] Urgent possible loose stitch od (chief complaint) Corneal transplant status No Information Referring Provider: Yesy Eid, [address] [place], [address]. tel:[phone] OFFICE/OUTPA TIENT VISIT, EST [facility], [address] [place], [address], [place] tel:[phone] [facility] 1 mo check (chief complaint) Corneal transplant statusPosteri or subcapsular polar age-related cataract, right eye 5 Rio Dean. [address] [place], [place], [address]. tel:[phone] Referring Provider: Yesy Eid, [address] [place], [address]. tel:[phone] OFFICE/OUTPA TIENT VISIT, EST [facility], [address] [place], [address], [place] tel:[phone] [facility] Urgent possible loose suture (chief complaint) Corneal transplant status Oct-0 5-201 5 Rio Dean. [address] [place], [place], [address]. tel:[phone] Referring Provider: Yesy Eid, [address] [place], [address]. tel:[phone] OFFICE/OUTPA TIENT VISIT, EST [facility], [address] [place], [address], [place] tel:[phone] [facility] urgent- pain, possible suture broken (chief complaint) No Information Sep-0 8- 5 Rio Dean. [address] [place], [place], [address]. tel:[phone] Referring Provider: Yesy Eid, [address] [place], [address]. tel:[phone] OFFICE/OUTPA TIENT VISIT, EST [facility], [address] [place], [place], [facility], [place] tel:[phone] [facility] cornea follow up (chief complaint) No Information 5 [facility]. [address] [facility], [address], [place], [place], [address]. tel:[phone] Referring Provider: Yesy Eid, [address] [place], [address]. tel:[phone] OFFICE/OUTPA TIENT VISIT, EST [facility], [address] [place], [address], [place] tel:[phone] [facility] Cornea Follow Up (chief complaint) No Information 0 5 [facility]. [address] [facility], [address], [place], [place], [address]. tel:[phone] Referring Provider: Yesy Eid, [address], [place], [address]. tel:[phone] OFFICE/OUTPA TIENT VISIT, EST [facility], [address] [place], [address], [place] tel:[phone] [facility] cornea follow up (chief complaint) No Information 5 [facility]. [address] [place] [address] Road, [address], [place], [place], [address]. tel:[phone] Referring Provider: Yesy Eid, [address] [place], [address]. tel:[phone] OFFICE/OUTPA TIENT VISIT, EST [facility], [address] [place], [address], tel:[phone] [facility] urgent pain od x 2 days (chief complaint) No Information 5 No Information Referring Provider: Yesy Eid, [address] [place], [address]. tel:[phone] OFFICE/OUTPA TIENT VISIT, EST [facility], [address] [place], [address], tel:[phone] [facility] 2 mo fu s/p dalk od 03/27/14 (chief complaint) No Information Sep- 5 [facility]. [address] [place] [address], [address], [place], [place], [address]. tel:[phone] Referring Provider: Yesy Eid, [address] [place], [address]. tel:[phone] OFFICE/OUTPA TIENT VISIT, EST [facility], [address] [place], [address], [place] tel:[phone] [facility] cornea follow up (chief complaint) No Information 3 0- 5 [facility]. [address] [facility] [facility], [address], [place], [place], [address]. tel:[phone] Referring Provider: Yesy Eid, [address] [place], [address]. tel:[phone] [facility], [address] [place], [address], [place] tel:[phone] [facility] No Information 5 [facility]. [address], [address], [place], [place], [address]. tel:[phone] Referring Provider: Yesy Eid, [address], [place], [address]. tel:[phone] [facility], [address] [place], [address], [place] tel:[phone] [facility] No Information 5 No Information Referring Provider: Yesy Eid, [address], [place], [address]. tel:[phone] [facility], [address] [place], [address], [place] tel:[phone] [facility] [place] No Information 5 [facility]. [address], [address], [place], [place], [id number]. tel:[phone] Referring Provider: Yesy Eid, [address], [place], [address]. tel:[phone] [facility], [address] [place], [address], [place] tel:[phone] [facility] No Information 5 [facility]. [address], [address], [place], [place], [id number]. tel:[phone] Referring Provider: Yesy Eid, [address], [place], [address]. tel:[phone] [facility], [address] [place], [address], [place] tel:[phone] [facility] No Information 5 Rio Dean. [address] [place], [place], [id number]. tel:[phone] Referring Provider: Yesy Eid, [address], [place], [address]. tel:[phone] [facility], [address] [place], [address], [place] tel:[phone] [facility] vision is improved OD (chief complaint)+ Dryness after gtts OD (chief complaint)D ur- QID ,rest-BID, Comb-QD-OD OD (chief complaint) No Information 5 Rio Dean. [address] [place], [place], [id number]. tel:[phone] Referring Provider: Yesy Eid, [address] [place], [address]. tel:[phone] [facility], [address] [place], [address], [place] tel:[phone] [facility] No Information Mar- 4 [facility]. [address] [place] [address], [address], [place], [place], [id number]. tel:[phone] Referring Provider: Yesy Eid, [address] [place], [address]. tel:[phone] [facility], [address] [place], [address], [place] tel:[phone] ABELARDO Aviles Pt doing okay pain 2 on a 1-10 scale OD (chief complaint)D ur-QID, rest-BID, ltx-QHS-OD OD (chief complaint) No Information 4 [facility]. [address] [place] [address], [address], [place], [place], [id number]. tel:[phone] Referring Provider: Yesy Eid, [address] [place], [address]. tel:[phone] [facility], [address] [place], [address], [place] tel:[phone] [facility] No Information Mar-2 3 4 [facility]. [address] [place] [address], [address], [place], [place], [id number]. tel:[phone] Referring Provider: Yesy Eid, [address] [place], [address]. tel:[phone] [facility], [address] [place], [address], [place] tel:[phone] [facility] [place] No Information 4 [facility]. [address] [place], [place], [id number], [place]. tel:[phone] Referring Provider: Armando Ervin, [address] [place] [address] [address], [place], [address]. tel:[phone] [facility], [address] [place], [address], [place] tel:[phone] [facility] No Information 4 Surjit Oliveira. [address] [place], [place], [id number], [place]. tel:[phone] Referring Provider: Yesy Eid, [address] [place], [address]. tel:[phone] [facility], [address] [place], [address], [place] tel:[phone] [facility] no complaints OD (chief complaint)d ur qid, ltx osmin qhs, rest bid, levo bid OD (chief complaint) No Information 4 Rah Roberts. [address] [place] [address], [address], [place], [place], [address]. tel:[phone] Referring Provider: Yesy Eid, [address] [place], [address]. tel:[phone] [facility], [address] [place], [address], [place] tel:[phone] [facility] No Information 4 Rah Roberts. [address] [place] [address], [address], [place], [place], [address]. tel:[phone] Referring Provider: Yesy Eid, [address] [place], [address]. tel:[phone] [facility], [address] [facility] [place], [address], [place] tel:[phone] [facility] No Information 0- 4 [facility]. [address], [address], [place], [place], [id number]. tel:[phone] Referring Provider: Yesy Eid, [address] [place], [address]. tel:[phone] [facility], [address] [employer] [place], [address], [place] tel:[phone] [facility] No Information Mar- 0- 4 Surjit Oliveira. [address] [place], [place], [id number], [place]. tel:[phone] Referring Provider: Yesy Eid, [address] [place], [address]. tel:[phone] OFFICE/OUTPA TIENT VISIT, EST [facility], [address] [employer] [place], [address], [place] tel:[phone] [facility] pain (chief complaint) No Information Dec-0 3 4 No Information Referring Provider: Yesy Eid, [address] [place], [address]. tel:[phone] OFFICE/OUTPA TIENT VISIT, EST [facility], [address] [employer] [place], [address], [place] tel:[phone] [facility] cornea follow up (chief complaint) No Information Dec-2 4 [facility]. [address] [place] [address], [address], [place], [place], [id number]. tel:[phone] Referring Provider: Yesy Eid, [address] [place], [address]. tel:[phone] OFFICE/OUTPA TIENT VISIT, EST [facility], [address] [employer] [place], [address], [place] tel:[phone] [facility] Contact lens evaluation (chief complaint) No Information 4 Rio Dean. [address] [place], [place], [id number]. tel:[phone] Referring Provider: Yesy Eid, [address], [place], [address]. tel:[phone] OFFICE/OUTPA TIENT VISIT, EST [facility], [address] [place], [address], tel:[phone] [facility] cornea follow up (chief complaint) No Information 4 [facility]. [address] [place] [address], [address], [place], [place], [address]. tel:[phone] Referring Provider: Yesy Eid, [address], [place], [address]. tel:[phone] OFFICE/OUTPA TIENT VISIT, EST [facility], [address] [place], [place], [facility], tel:[phone] [facility] [place] cornea follow up (chief complaint) No Information 4 [facility]. [address] [place] [address], [address], [place], [place], [address]. tel:[phone] Referring Provider: Yesy Eid, [address] [place], [address]. tel:[phone] OFFICE/OUTPA TIENT VISIT, EST [facility], [address] [place], [address], [place] tel:[phone] [facility] [place] cornea follow up (chief complaint) No Information 4 [facility]. [address] [place] [address], [address], [place], [place], [address]. tel:[phone] Referring Provider: Yesy Eid, [address] [place], [address]. tel:[phone] OFFICE/OUTPA TIENT VISIT, EST [facility], [address] [place], [address], tel:[phone] [facility] No Information 4 [facility]. [address] [place] [address] Road, [address], [place], [place], [address]. tel:[phone] Referring Provider: Yesy Eid, [address] [place], [address]. tel:[phone] OFFICE/OUTPA TIENT VISIT, EST [facility], [address] [place], [address], [place] tel: [phone] [facility] No Information 3 [facility]. [address] [place] [address] Road, [address], [place], [place], [address]. tel:[phone] Referring Provider: Yesy Eid, [address] [place], [address]. tel:[phone] OFFICE/OUTPA TIENT VISIT, EST [facility], [address] [place], [address], [place] tel:[phone] [facility] No Information 3 [facility]. [address] [place] [address] Road, [address], [place], [place], [address]. tel:[phone] Referring Provider: Yesy Eid, [address] [place], [address]. tel:[phone] OFFICE/OUTPA TIENT VISIT, EST [facility], [address] [place], [address], [place] tel: [phone] [facility] No Information 3 [facility]. [address] [place] [address] Road, [address], [place], [place], [id number]. tel:[phone] Referring Provider: Yesy Eid, [address] [place], [address]. tel:[phone] OFFICE/OUTPA TIENT VISIT, EST [facility], [address] [place], [address], [place] tel: [phone] [facility] No Information 3 [facility]. [address] [place] [address], [address], [place], [place], [id number]. tel:[phone] Referring Provider: Yesy Eid, [address] [place], [address]. tel:[phone] OFFICE/OUTPA TIENT VISIT, EST [facility], [address] [place], [address], [place] tel:[phone] [facility] No Information 3 [facility]. [address] [place] [address], [address], [place], [place], [address]. tel:[phone] Referring Provider: Yesy Eid, [address] [place], [address]. tel:[phone] OFFICE/OUTPA TIENT VISIT, EST [facility], [address] [place], [address], [place] tel:[phone] [facility] No Information 3 [facility]. [address] [place] [address], [address], [place], [place], [address]. tel:[phone] Referring Provider: Yesy Eid, [address] [place], [address]. tel:[phone] OFFICE/OUTPA TIENT VISIT, EST [facility], [address] [place], [address], [place] tel:[phone] [facility] No Information 3 [facility]. [address] [place] [address], [address], [place], [place], [address]. tel:[phone] Referring Provider: Yesy Eid, [address] [place], [address]. tel:[phone] OFFICE/OUTPA TIENT VISIT, EST [facility], [address] [place], [address], [place] tel:[phone] [facility] No Information 2 Rio Dean. [address] [place], [place], [id number]. tel:[phone] Referring Provider: Yesy Eid, [address], [place], [address]. tel:[phone] OFFICE/OUTPA TIENT VISIT, EST [facility], [address] [place], [address], [place] tel:[phone] [facility] No Information 2 [facility]. [address] [place] [address] Road, [address], [place], [place], [address]. tel:[phone] Referring Provider: Yesy Eid, [address] [place], [address]. tel:[phone] [facility], [address] [place], [address], [place] tel:[phone] [facility] No Information 2 [facility]. [address] [place] [address] Road, [address], [place], [place], [address]. tel:[phone] OFFICE/OUTPA TIENT VISIT, EST [facility], [address] [place], [address], [place] tel:[phone] [facility] No Information 2 [facility]. [address] [place] [address] Road, [address], [place], [place], [address]. tel:[phone] Referring Provider: Yesy Eid, [address] [place], [address]. tel:[phone] OFFICE/OUTPA TIENT VISIT, EST [facility], [address] [place], [address], [place] tel:[phone] [facility] No Information 2 [facility]. [address] [place] [address] Road, [address], [place], [place], [address]. tel:[phone] Referring Provider: Yesy Eid, [address], [place], [address]. tel:[phone] OFFICE/OUTPA TIENT VISIT, EST [facility], [address] [place], [address], [place] tel:[phone] [facility] No Information 1 [facility]. [address] [place] [address], [address], [place], [place], [address]. tel:[phone] Referring Provider: Yesy Eid, [address], [place], [address]. tel:[phone] OFFICE/OUTPA TIENT VISIT, EST [facility], [address] [place], [address], [place] tel:[phone] [facility] No Information 1 [facility]. [address] [place] [address], [address], [place], [place], [address]. tel:[phone] Referring Provider: Yesy Eid, [address], [place], [address]. tel:[phone] OFFICE/OUTPA TIENT VISIT, EST [facility], [address] [place], [address], [place] tel:[phone] [facility] No Information 1 [facility]. [address] [place] [address], [address], [place], [place], [address]. tel:[phone] Referring Provider: Yesy Eid, [address], [place], [address]. tel:[phone] OFFICE/OUTPA TIENT VISIT, EST [facility], [address] [place], [address], [place] tel:[phone] [facility] No Information 1 [facility]. [address] [place] [address], [address], [place], [place], [address]. tel:[phone] Referring Provider: Yesy Eid, [address], [place], [address]. tel:[phone] OFFICE/OUTPA TIENT VISIT, EST [facility], [address] [place], [address], tel:[phone] [facility] No Information 1 [facility]. [address] [place] [address], [address], [place], [place], [address]. tel:[phone] Referring Provider: Yesy Eid, [address] [place], [address]. tel:[phone] OFFICE/OUTPA TIENT VISIT, EST [facility], [address] [place], [address], tel:[phone] [facility] No Information 0 1 [facility]. [address] [place] [address], [address], [place], [place], [address]. tel:[phone] Referring Provider: Yesy Eid, [address] [place], [address]. tel:[phone] OFFICE/OUTPA TIENT VISIT, EST [facility], [address] [place], [address], tel:[phone] [facility] No Information 0 [facility]. [address] [place] [address], [address], [place], [place], [address]. tel:[phone] Referring Provider: Armadno Ervin, [address] [place] [address] [address], [place], [address]. tel:[phone] OFFICE/OUTPA TIENT VISIT, EST [facility], [address] [place], [address], tel:[phone] [facility] No Information 0 0 [facility]. [address] [place] [address], [address], [place], [place], [address]. tel:[phone] Family History Family Member Type Diagnosis Age At Onset Problem (finding) No family history of Ca ncer, unknown Problem (finding) No family history of Ca taracts Problem (finding) No Family history of Re tinal Disorders Problem (finding) No Family hist ory of Macular Degeneration Problem (finding) No family history of Di abetes mellitus Problem (finding) No family history of Hy pertension Problem (finding) No family history of Gl au[place] Immunizations Vaccine Date Status Comments Pneumococcal, PCV-13 administered Source: Other Provider Payers Payer name Insurance type Covered libertarian ID Christos gary(anya) [facility] - [id number] CI [id number] Social History Type Description Quantity Date Captured Comments Alcohol Use Details No 2 glasses Minimal Caffeine Use Details 2 cups per day Tobacco Use Status Current non-smoker Smoking Status Never smoker Sex Female Chief Complaint And Reason For Visit From encounter dated '03/09/2022 11:20'. s/p DALK OD (chief complaint). Description: The 21 year old female presents for evaluation of s/p DALK OD. pt states her vision seems slightly changed but thinks its due to old glasses. pt denies flashes of light, floaters or pain. pt states if wanting to remain on xiidra her insurance states it will need to be sent through [employer] Meds:pred 3/0xiidra 2/0 Reason For Referral Reason For Referral No Information Plan Of Treatment Date Type Action Status Patient Education Health Information for You: MedlinePl~ completed Patient Education Xiidra 5 % eye drops in a dropperette completed Patient Education Durezol 0.05 % eye drop s completed History Of Present Illness Encounter Date Complaint History Of Prese nt Illness s/p DALK OD The 21 year old female presents for evaluation of s/p DALK OD. pt states her vision seems slightly changed but thinks its due to old glasses. pt denies flashes of light, floaters or pain. pt states if wanting to remain on xiidra her insurance states it will need to be sent through [employer] Meds:pred 3/0xiidra 2/0 4-6 month f/u Pt here for 4-6 month check up in right eye. Pt denies any pain, flashes, or floaters. Pt states vision has been stable since last visit. Pt c/o dry eye. Pt needs refill on all medications. blurry vision follow up The 19 y ear old female presents for a blurry vision follow up in the right eye. Pt VA stable in the left eye but the right eye is blurry. States Tuesday she noticed excessive tearing and also a black dot in her right eye peripheral vision (temporally) and it was circling around in the same loop. States this morning she woke up and that area with the dot is now blurred and she noticed shimmering in that area while driving earlier. States hasn't noticed a veil across the vision but describes it as like when you take a picture in portrait mode with an IPhone and how the sides are blurry. Pt denies any pain, redness. States has headaches but normally has headaches-not eye related. 4 mo corneal ck The 18 year old female presents for evaluation of 4 mo corneal ck in the right and left eyes. Patient feels that her vision has remained unchanged since her last visit. Patient denies having any pain, flashes and floaters. Patient notes that her eye still feels dry with taking the Xiidra. Patient has no other complaints or concerns at this time. 3-4 mo corneal follow up The 18 year old female presents for evaluation of 3-4 mo corneal follow up in the right and left eyes. Pt states vision has been 'fine,' since last seen in office and only complaint currently is she is noticing 1 floater, 'shaped like a half wilde' that floats in and out of vision. Pt was checked locally for possible retina issues and [facility] local md assured her everything was fine. Denies eye pain or flashes of light. Pt is compliant with drop therapy and tolerates well - Dur 3/0, Xiidra 2/0, Valtrex 500mg QD, and AT 6-8xs QD. 5 mo corneal f/u The 18 year old female presents for evaluation of 5 mo corneal f/u in the right and left eyes. Patient feels that her vision has remained unchanged since her last visit. Patient denies having any pain, flashes and floaters. Patient claims to be taking gtts as directed and tolerating them well. 4 month glaucoma follow up The [age] year old female presents for evaluation of 4 month glaucoma follow up in the right and left eyes. States vision is stable, no changes. Denies pain, light sensitivity, headaches or flashes and floaters. Tolerating drops ok and taking as directed. 4 month cornea follow up The 17 year old female presents for evaluation of 4 month cornea follow up in the right and left eyes. Patient denies eye pain, floaters and flashes. Pt is currently using Durezol Tid OD, Xiidra Bid OD, Valtrex 500 mg Qd, AT 6-8, & [place] 3's. 3 month glaucoma follow up The [age] year old female presents for a 3 month glaucoma follow up in the right and left eyes. States vision is stable in the left eye but the right eye seems to be cloudy like how it was when she had the cataract-has noticed this over the last few months. States cloudiness is all over vision not just in one spot. Associated symptoms include: change in vision. Patient denies any drop problems and is using drops correctly, decreased vision, eye pain, floaters and sensitivity to light. 3 month cornea follow up The 17 year old female presents for evaluation of 3 month cornea follow up in the right and left eyes. DALK OD, dry eye OD, PCIOL OD. Patient states vision is unchanged. Denies flashes, floater and eye pain. Patient has occasional dryness OD. glaucoma consult per [facility] The 17 year old female presents for evaluation of glaucoma consult per [facility] in the right and left eyes. States she has had kidney stones in the past, states she has had a cornea transplant and Phaco SX OD, migraines, states she does have flashes and floaters OD. Patient denies having any family history of glaucoma, trauma OU, breathing problems, blood transfusions, Raynauds, Anemia and low blood pressure. States her sister does have Raynauds. Tolerating drops ok and taking as directed. States vision is stable, no changes. 2 month cornea follow up The 17 year old female presents for evaluation of 2 month cornea follow up in the right and left eyes. DALK OD 03/27/14, dry eye OU, PCIOL OD. Patient states vision is unchanged. Patient states over the past week she has had a burning sensation OD and is seeing stars when closing eye it goes away . Patient states she has been very light sensitive OD. Denies flashes, floaters and pain. Patient is taking Durezol TID OD and Xiidra BID. Pt would like refill on both. cornea follow up The 16 year 11 month old female presents for a 4 WK cornea follow up in the right and left eyes. S/P DALK OD. Pt describes Va as good. Pt states she got new glasses 1-2 weeks ago. pt denies f/f's. Pt denies pain. 4-6 wk Cornea ck The 16 year 10 month old female presents for evaluation of 4-6 wk Cornea ck in the right and left eyes. S/P DALK, Dry eye ,Phaco OD. Pt feels Va is getting better. About a week ago pt started seeing "white floaters , she said it is similar to when she had her cataract. She states it is like one big cloud . it will stay a couple of mintues then it will pass. Pt denies pain or flashing. cornea follow up The 16 year 9 m onth old female presents for evaluation of 1 week cornea follow up OU. Pt states her right eye started burning really bad last night, still burning this morning but not as bad. Pt unsure if there has been any vision changes. Pt denies flashes or floaters. Pt taking Dur 6/0, Rest 2/0, ATs, and Valtrex 500mg QD as directed. 3-4 mo Cornea ck The 16 [facility] for evaluation of 3-4 mo Cornea ck in the right and left eyes. S/P DALK Od, Dry Eye, S/P Phaco Od. VA unchanged. Pt denies pain flashing or floaters. No new complaints at this time. headaches The 16 year 6 mo h old female presents for evaluation of headaches in the facial area. H/o corneal tx. S/P DALK 03/27/2014 OD. For the past month and a half patient has had a constant headache. Pt does not notice any vision changes. Eyes do feel dry. 5 mo cornea fu The 16 year 4 mo nth old female presents for evaluation of 5 mo cornea fu in the right and left eyes. Va is good. No pain od. 3-4 mo check The 15 year 11 m onth old female presents for evaluation of 3-4 mo check in the right and left eyes. The patient feels it is unchanged. The condition is described as no noticeable vision changes. Patient denies eye pain, flashes and floaters. 3 MO CORNEA FU The 15 year 8 mo nth old female presents for evaluation of 3 MO CORNEA FU in the right eye. Va is good ou. No pain . cornea check The 15 year 5 mo nth old female presents for evaluation of cornea check in the right eye x 6 wks. Pt. has h/o DALK OD. Pt. feels VA OD staying same-no improvement since last visit. pt. denies any pain or discomfort since last visit. pain 15 yo F with h/o DALK OD. She has burning sensation constantly in OD, no redness. Pt has had occasional flashes of white light in periphery OD, no hundreds of floaters or curtain. Has also felt vision has been overall blurry compared to usual. This has been constant, no change with blinking. Follow Up of 4-6 Yag The 15 year 4 month old female presents for evaluation of Follow Up of 4-6 Yag in the right eye. Od has been dry. VA not to great. Od zhao in the morning. Pt denies any flashing or floaters. Dur-qidod, Levo,rest-bidod Dur Qid, Ilev Qd OD cataract evaluation The 14 year 8 month old female presents for evaluation of cataract evaluation in the right and left eyes. It affects cloudiness. The condition is not any better. The condition is described as glare and halos. She states she cannot see at night due to the glare and halos from lights. She states she will have blurry spells. pain OD The 14 year 8 mo nth old female presents for evaluation of pain OD in the right eye. Pt. is s/p DALK OD. Pt. notes she woke up this am and OD was very light sensitive. Pt. put in some art. tears and antibiotic drop to see if it would help-but no help. OD is still light senstitive and also very painful. Pt. also took OTC pain meds and didn't seem to help with the pain. VA OD seems very blurry cornea follow up The 14 year 7 m onth old female presents for evaluation of cornea follow up in the right eye. It occurs constantly. The patient feels it is stable. Pt lenny pain/discomfort. Pt denies va changes. 2 WEEK FU DALK OD The 14 year 6 month old female presents for evaluation of 2 WEEK FU DALK OD in the right eye. Eye doesn't feel any better since last visit eye hurts, light sensitive. Va is blurry od. redness The 14 year 5 mo nth old female presents for evaluation of redness in the right eye. It started about 2 week(s) ago. It occurs constantly. The condition is moderate. Pt states that OD is red and photophobic. Pt has increased her AT as instructed by ERS on 05/28/15.gtts: dur bid od, rest bid od, at prn ou Urgent The 14 year 5 mo nth old female presents for evaluation of Urgent in the right eye. +pain od started this am. Eye zhao. Va seems ok Urgent possible loose stitch od The 14 year 3 month old female presents for evaluation of Urgent possible loose stitch od in the right eye. Eye starting to irritate this morning. +H/A behind od last 2 weeks. Va seems stable. 1 mo check The 14 year 2 mo nth old female presents for evaluation of 1 mo check in the right eye. The patient feels it is unchanged. The condition is described as no noticeable vision changes. Patient denies eye pain, flashes and floaters. Urgent possible loose suture The 14 year 1 month old female presents for evaluation of Urgent possible loose suture in the right eye. Started with irriation last . Va seems little blurry od. urgent- pain, possib le suture broken The 14 year old female presents for evaluation of urgent- pain, possible suture broken in the right eye. It started about 1 day(s) ago. The onset was sudden. The patient feels it is dull. Patient denies flashes and floaters. cornea follow up The 14 year old female presents for evaluation of cornea follow up in the right eye. It started about 2 month(s) ago. Pt states that she thinks a suture might be loose but is unsure pt c/o that OD zhao. gtts: dur bid od, rest bid od Cornea Follow Up The 13 year 11 month old female presents for evaluation of Cornea Follow Up in the right eye. Pt. last seen about 3 week(s) ago. It occurs constantly. The onset was progressive. Pt. states she hasn't noticed any significant changes to her va since previous visit. Pt. denies any pain and is stable. Pt. is using rest 2/2, Valtrex QD, and dur 2/2 without any issues. Pt. feels condition remains unchanged. cornea follow up The 13 year 10 month old female presents for evaluation of cornea follow up in the right eye. It started about 1 1/2week(s) ago. Pt feels her eye is unchanged and it is still in pain. She is using Restasis BID, Durezol QID OD and Valtrex 500mg QD. urgent pain od x 2 days The 13 y ear 10 month old female presents for evaluation of urgent pain od x 2 days in the right eye. The onset was sudden. The patient describes it as cloudiness. The patient feels it is moderate. positive halo od 2 mo fu s/p dalk od 03/27/14 The 13 year 10 month old female presents for evaluation of 2 mo fu s/p dalk od 03/27/14 in the right eye. Va is stable od, can't see well close up. No pain/discomfort od. cornea follow up The 13 year 8 m onth old female presents for evaluation of cornea follow up in the right eye. It started about 6 week(s) ago. Pt denies pain/discomfort. Pt states va is stable. gtts: dur/rest bid od, acyclovir 400mg bid. vision stable, no pain or discomfort. DUR TID, Restasis BID, dur tid, rest bid, od. rest. bid od dur qid od + Dryness after gtts + Dryness a fter gtts OD Dur- QID ,rest-BID, Comb-QD-OD D ur- QID ,rest-BID, Comb-QD-OD OD vision is improved vision is imp roved OD Dur-QID, rest-BID, ltx-QHS-OD Du r-QID, rest-BID, ltx-QHS-OD OD Pt doing okay pain 2 on a 1-10 scale Pt doing okay pain 2 on a 1-10 scale OD no complaints no complaints OD dur qid, ltx osmin qhs , rest bid, levo bid dur qid, ltx osmin qhs, rest bid, levo bid OD pain The 13 year 3 mo nth old female presents for evaluation of pain in the right eye. It started about 1 day(s) ago. Pt states that OD started this morning, woke up with redness and pain. Pt denies photophobia. Pt c/o some va decrease since waking up. Pt did not use any gtts this morning. cornea follow up The 13 year 1 m onth old female presents for evaluation of cornea follow up in the right and left eyes. Pt states va is stable, pt denies pain. Pt states that neon colors and lights hurt OD. Contact lens evaluation cornea follow up The 13 year old female presents for evaluation of cornea follow up in the right eye. It started about 1 month(s) ago. Pt states that va is worse than last visit. Pt c/o some mornings pt will wake up and OD will be red, some mornings it will burn. gtts: dur tid od cornea follow up The 12 year 11 month old female presents for evaluation of cornea follow up in the right eye. It started about 2 week(s) ago. Pt states that va has decreased since RAFFY. It has been painful but it is a very dull pain. No redness. Pt's mom states that pt was in [place] last week and had a sudden va decrease and saw a Privacy Officer in [place] and they were supposed to send their notes to [facility]. I looked through pt's chart and was unable to find them. cornea follow up The 12 year 10 month old female presents for evaluation of cornea follow up in the right eye. It started about 2 week(s) ago. It occurs always. The onset was sudden. It affects cloudiness. The symptom is all of the time. Pt. denies any pain/discomfort. Pt. feels she is having a flare up without the pain.Gtts: pred bid od Functional Status Date Functional Assessmen t No Information Instructions Date Instruction Additional Infor armand Impression/Plan Impression/Plan Impression/Plan Impression/Plan Impression/Plan Impression/Plan Impression/Plan Impression/Plan Impression/Plan Impression/Plan Impression/Plan Impression/Plan - Decrease durezol t o TID ODCont Xiidra BID ODContinue Valtrex 500mg QDContinue AT's 6-8x daily OD-RTC when pt home from [facility] for fall break or prn (pt will call to schedule, ok to see [facility] for next visit) Related to See impression details - Decrease durezol t o QID ODCont Xiidra BID ODContinue Valtrex 500mg QDContinue AT's 6-8x daily OD Related to See impression details - Return - 4-6 week with Armando Monreal MD Related to See impression details - Return 4-5 week(s) with Armando Monreal MD for follow up exam. Related to See impression details - Continue Durezol 6 x QD ODD/C Restasis Start Xiidra BID ODContinue Valtrex 500mg QDContinue AT's 6-8x daily OD Related to See impression details - Return 1 week with Armando Monreal MD for follow up exam. Related to See impression details - Increase Durezol t o 6x QD ODContinue Restasis BID ODContinu Valtrex 500mg QDContinue AT's 6-8x daily OD Related to See impression details - Return - 3-4 month s with Armando Monreal MD for follow up exam. Related to See impression details - - Continue Restasi s BID OD- Continue Durezol TID OD- Continue ATs 6-8x QD OD- Continue Valtrex 500mg QDRefer to glaucoma [place] for baseline glaucoma evaluationSuggest that patient try switch of OCP medication. Patient to talk to OBS[facility]N Related to See impression details - Return 6 months wi th Armando Monreal MD for follow up exam. Related to See impression details - - Continue Restasi s BID OD- Continue Durezol TID OD- Continue ATs 6-8x QD OD- Continue Valtrex 500mg QD Related to See impression details - Return - 5 months with Armando Monreal MD for follow up exam. Related to See impression details - - Continue Restasi s BID OD- Continue Durezol TID OD- Continue ATs 6-8x QD OD- Continue Valtrex 500mg QD-f/u with [facility] in 5 months Related to See impression details - Return 3-4 months with Armando Monreal MD for follow up exam. Related to See impression details - - Continue Restasi s BID OD- Continue Durezol TID OD- Continue ATs 6-8x QD OD- Continue Valtrex 500mg QD Related to See impression details - Return - 3 months with Armando Monreal MD for follow up exam. Related to See impression details - - D/C Restasis - S tart Xiidra BID OD- Continue Durezol TID OD- Continue ATs 6-8x QD OD- Continue Valtrex 500mg QD- Place plug RLL (medium)- Ok to proceed with updated Rx- Marilynn next visit Related to See impression details - - artificial tears 6x/day- cont Dur TID, restasis BID, valtrex- has f/u with [facility] in May Related to See impression details - Return - 6-8 week( s) with Armando Monreal MD for follow up exam. 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 Related to P O PCIOL/Wound Revision - Return - schedule procedure Re lated to See impression details - - Cataracts accoun t for the patient's complaints. Discussed risks, benefits, procedures and recovery. Patient desires to have surgery, recommend phacoemulsification with intraocular lens. Phaco with wound revision OD Related to See impression details - Return - keep current appointm ent Related to See impression details - Reassured patient and her mom that her eye looks greatNo sign of inflammation, infectionAll sutures are removedCan try lubricating ointment qhsCan try OTC antihistamine eye drop to see if any allergy component f/u for cat eval as scheduled Related to See impression details - Return - 5 week(s) with Armando Monreal MD for Related to See impression details - -all sutures remov ed OD today in office-pt. tolerated well.-start levo tid x 3 dsys OD-continue other eye meds -f/u in 4-5 wks for cataract eval and measurements Related to See impression details - Return - 4-6 week( s) with Armando Monreal MD for follow up exam. Related to See impression details - 1. Start Vigamox T IX x 3days OD2. Decrease Durezol TID OD3. Continue Restasis BID OD4. Continue Valtrex 500mg QD- MR & Marilynn OD next visit Related to See impression details - Return - 1 week wi th Orestes Pepper, OD for follow up exam. Related to See impression details - . Increase Lotema x to QID OD2. Follow-up 1 week to reasess with BMG3. F/U as scheduled with [facility] (include MR/MARILYNN at next [facility] visit as planned) Related to See impression details . CPM, increase t ears today2. RTC with [facility] as sched Related to See impression details - Return - keep current appointm ent Related to See impression details - -Continue current [id number] with [facility] as scheduled 0MR/MARILYNN next visit as before) Related to See impression details - Return - 2 months Related to S ee impression details - 1. CPM2. RTC 2 mo' s with [facility] or prn-marilynn, mr, iop, ejh Related to See impression details - add antibiotic x 3 days, cont other meds, rtc 1mo Related to See impression details - . add vig tid x 3 days2. rtc with [facility] as sched or prn Related to See impression details - Return in 6-8 week (s) with Armando Monreal MD Related to See impression details - 1. Continue Restas is BID OD2. Continue Durezol BID OD3. Continue Valtrex 500mg QD Related to See impression details - Return in 3-4 week (s) with Armando Monreal MD for MR and Marilynn OD. Related to See impression details - . Continue Restas is BID OD2. Increase Durezol BID OD3. Continue Valtrex 500mg QD4. Start Vigamox TID x3days- MR and Marilynn next visit. Related to See impression details - Return in 3-4 week (s) with Armando Monreal MD for MR and MARILYNN. Related to See impression details . Continue Restas is BID OU2. Decrease Durezol BID OD3. Continue Valtrex 500mg QD- MR and Marilynn next visit. Related to See impression details - Return in 1 week w isabela Orestes Pepper, OD for follow up exam. Related to See impression details - -Continue Restasis bid-Increase Durezol to QID OD-Switch Acyclovir to Valtrex 500mg QD - due to pt c/o upset stomach-Reassess in 1 week with BMG Related to See impression details - Return in 2 months with Armando Monreal MD with Marilynn OD Related to See impression details - -Continue Restasis bid-Continue Durezol QD OD-Switch Acyclovir to Valtrex 500mg QD - due to pt c/o upset stomach-Vigamox TID x3 days OD Related to See impression details - 2 months [facility] with Marilynn Related to See impression details - cont restasis bidd ecrease Durezol to QDacyclovir 400 mg PO BIDtopo next visit and consider suture removal Related to See impression details - Return in 4-6 weeks. Related t o DALK - -Consulted with MARIAN - [facility] recommends cyclo-RTC as scheduled with [facility] Related to DALK - -RTC 6-8 weeks, include MR/TOP O Related to rebubble - Return in 2-3 weeks. Related t o rebubble - Return in 1 week. Related to R ebubble - Return in 1 week. Related to R ebubble - Return in 1 week. Related to R ebubble - Return in 3 weeks Related to D ALK - Return in 1 week. Related to D ALK - Return in as scheduled Related to See impression details - . Proceed with BILLIE RICHARDSON as scheduled2. [place] AT use Related to See impression details - Return in as scheduled Related to See impression details - . Schedule DALK O D - Discussed risks, benefits, procedures and recovery. Patient desires to have surgery. Related to See impression details - Sent message to [facility] to determine next step, waiting to hear back Related to See impression and plan - return to ers for hard contact and marilynn od, per [facility] Related to See impression and plan - Return with ERS fo r marilynn and hard contact lens fit for the right eye. Explained in details for the vision disconnect. Related to See impression and plan - RETURN IN ONE MTH WITH [facility] Rel ated to See impression details - 1.Patient here tod ay for decreased vision in the right eye. Discussed with patient and family the need for a corneal transplant, along with risks and benefits. Will re-assess for surgery at next visit, to consider DALK.2. Decrease the Durezol to TID OD. scribed by patria Related to See impression details - RETURN WITH [facility] IN 2-3 WEEKS I N [place] Related to See impression details - CHANGE FROM PRED T O DUREZOL EVERY 2 HOURS IN THE RIGHT EYE AND ADD ACYCLOVIR 400MG BID. PATIENT AGREES WITH PLAN. SCRIBED BY PATRIA Related to See impression details 1. 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 Patient instructed to continue current maintenance medications. Patient understands need for chronic use of medications in order to minimize the risk of recurrence. Patient understands to call immediately if notices new redness, photophobia, decreased vision, pain, or other concerns.2. RTC 4 months3. Continue Pred BID OD Related to See impression: general plan - H ZOSTER KERATOCON JUNCT - OD- CORNEAL OPACITY NOS - OD- POST SUBCAP SENILE CATAR - OD - 1. Return to clinic in 4 months2. Continue all medications Pred Forte BID OD and Acyclovir 500 mg BID PD3. Educational materials provided:Primary Diagnosis.scribed MRedmond Related to See impression: general plan - RETURN IN 3 MONTHS WITH [facility] Re lated to See impression: general plan - HZV -DOING WELL NO INFLAMMATION- CORNEAL OPACITY OD- POST SUBCAPS CHARLY CATARCT OD- OBSERVE - 1. CPM. PATIENT IS STABLE WHILE ON STEROID EYE DROP AND ACYCLOVIR. 2. Educational materials provided:Primary Diagnosis.SCRIBED BY PATRIA Related to See impression: general plan - RETURN IN 3 MTHS WITH MARIAN- OD Related to See impression: general plan 1.- POST SUBCAP ONIEL LE OD-MILD2.- INCREASED ASTIGMATISM OD3.- H SIMPLEX KERATITIS OU-STABLE, NO INFLAMMATION - 1. Cataracts account for the patient's complaints. No treatment is currently recommended due to having an improvement in vision since last visit. The patient will monitor vision changes and contact us with any decrease in vision, otherwise RTC as schedule.2. Educational materials provided:Primary Diagnosis. Related to See impression: general plan - RETURN IN 3-4 WEEK S WITH [facility]-CAT EVAL OD Related to POST SUBCAP SENILE CATAR 1. hx of HSV OD2. PS C OD- WORSE TODAY AND VISION HAS BEEN SLOWLY DECREASING - 1. PER PATIENT HER VISION HAS BECOME MORE BLURRY. DISCUSSED PLAN WITH PATIENT TO REMOVE THE CATARACT IN THE RIGHT EYE. PATIENT AGREES. RETURN IN 3-4 WEEKS FOR A CATARACT EVAL ON THE RIGHT EYE.2. Educational materials provided:Cataract. 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 Decrease ACV to 400mg BID and Prednisolone TID. Discussed with patient about having the cataract removed at some point for better vision in the near future.2. Educational materials provided: HSV and Cataract OD. Related to See impression: general plan 1. CLEARING ISK SECO NDARY TO HZO-PAIN LESS ON ACYCLOVIR - 1. Keep all drop and medication regimen the same. Discuss at next visit to maybe decreasing the usuage of Acyclovir with a higher milligram.2. Educational materials provided:Primary Diagnosis. Related to H ZOSTER KERATOCONJUNCT - return in 4 weeks with marian- mr iop check od Related to H ZOSTER KERATOCONJUNCT - RETURN NEXT TUESDAY WITH [facility] IN [place] Related to See impression: general plan 1. 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 small psc, od3. chronic ISK OD, HX OF HZ - 1. Start trial of Acyclovir 400mg x5 a day for 10 days and decrease the Pred to QID. Patient complaining today of a different pain in the right eye today than from in the past when she typically has flare ups. 2. Educational materials provided:Primary Diagnosis. Related to See impression: general plan - RETURN IN ONE WEEK WITH [facility] Re lated to H SIMPLEX KERATITIS ISK OD -INCREASED IN FLAMMATION ODINCREASED STROMAL HAZE OD - 1. INCREASE PRED TO EVERY TWO HOURS WHILE AWAKE FOR 4 DAYS THEN 6 TIMES A DAY FOR ONE WEEK. FOLLOW UP IN ONE WEEK.2. Educational materials provided:Primary Diagnosis. Related to H SIMPLEX KERATITIS - return with [facility] Related to See impression: general plan 1. K SCAR, OD S/P HS V KERATITIS - NO ACTIVITY TODAY - 1. Patient instructed to continue current maintenance medications. Patient understands need for chronic use of medications in order to minimize risk of recurrence.2. Educational materials provided:Primary Diagnosis. 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
--- OUTSIDE RECORDS SUMMARY | 2024-09-19 09:49 | XMS_ITS | Encounter Summary ---
Author Organization [place] [address] Care Team Providers Care Water Pollution Control Technician Name Role Phone Loan Vick MD Primary Care Provider +1- [phone] Reason for Visit * Physical Medicine (Routine) - Authorized Specialty Diagnoses / Procedures Referred By Contac t Referred To Contact Physical Therapist / Physical Therapy Diagnoses Diagnosis unknown Procedures PELVIC FLOOR Iram Valladares, DO [address] [address] Phone: tel: fax: Raquel Torres, PT [address] [place] [address] Phone: tel: fax: Referral ID Status Reason Start Date Expiration Date V isits Requested Visits Authorized [id number] Authorized 08/31/2024 08/31/2025 1 90 Encounter Details Date Type Department Care Team (Latest Contact Info) Description 09/19/2024 9:49 AM EDT - 09/19/2024 11:59 PM EDT Hospital Encounter [facility] Physical Therapy [facility] [address] [place] [address] Raquel Torres, PT [address] [place] [address] Discharge Disposition: Home or Self [...] this encounter Medications at Time of Discharge Ascorbic Acid 500 mg Oral Tablet, ChewableIndications:Asco rbic acid deficiency Take 1 Tablet by mouth daily. 90 Tablet 1 03/16/20 24 Colesevelam 3.75 gram Oral Powder in Packet Take 3.75 g by mouth daily. 30 Packet 2 02/21/20 24 cyanocobalamin 1,000 mcg Oral TabletIndications:Vitami n B12 deficiency Take 1 Tablet by mouth daily. 90 Tablet 1 03/16/20 24 desvenlafaxine succinate (PRISTIQ) 100 mg Oral Tablet Sustained Release 24 hrIndications:Generalize d anxiety disorder Take 1 Tablet by mouth daily. 90 Tablet 1 06/29/19 25 ergocalciferol (DRISDOL) 1,250 mcg (50,000 unit) Oral CapsuleIndications:Vitam in D deficiency Take 1 capsule daily with food for 14 days then take 1 capsule with food twice weekly for 3 mths. 38 Capsule 03/16/20 24 ferrous gluconate (FERGON) 324 mg (37.5 mg iron) Oral TabletIndications:Iron deficiency Take 1 Tablet by mouth daily (with breakfast). 90 Tablet 1 03/16/20 24 hydrOXYzine (ATARAX) 25 mg Oral TabletIndications:Genera lized anxiety disorder Take 1 Tablet by mouth 3 times daily as needed for Anxiety. 90 Tablet 2 06/29/19 25 rimegepant (NURTEC ODT) 75 mg Oral Tablet, [...] encounter Progress Notes * Chelle Mccrary - 09/19/2024 10:51 AM EDT Program_ID:[id number] Access Code: [email or web address] URL: [email or web address] Date: 09-19-2024 Prepared By: Raquel Torres Program Notes Exercises [...] weekly - sets - 3-5 reps - Sidelying Thoracic Rotation with Open Book - 1-2 x daily - 7 x weekly - sets - 10 reps - Seated Hip External Rotation Stretch - 1-2 x daily - 7 x weekly - sets - 10 reps * Raquel Torres, PT - 09/19/2024 10:00 AM EDT Images from the original note were not included. Physical Therapy Treatment Note Patient Name: Pili Kyle : 2000 09/19/2024 Visit #: 2 Onset Date: 08/01/24 pain 1 month Diagnosis: pelvic pain during Restrictions/Precautions: [place] Physician: Vladimir ANDRE Follow Up: 09/11/24 she is high risk Evaluation Date: 08/31/2024 Reassessment Due: 10/01/24 Current Bladder treatment (meds):none Current Bowel treatment (supplements/meds):none [] Psyllium (amount): [] other Primary Insurance: [employer] Insurance Authorization: Time In/Out: 1004/1050 Timed Treatment Minutes: Manual therapy techniques 16 minutes Therapeutic Exercise 25 minutes Total Timed Code Treatment Minutes: 41 Total Treatment Minutes: 41 min Medication Changes: no changes Pain: Current Pain Level: 2 Location: groin, where leg meets torso, left > right Description: Pain is described as sharp and shooting, stabbing. Subjective Chases a 1 yo. All the time. Discussed trying to get gentle KT or rock tape. Due Jan 19, 2025 but induction around 12/29/24 Bladder - normal Bowel - normal She likes KT tape for her pain. Objective []FOTO / PSFS discussed with pt [x] FOTO [...] Walking more than a short distance 2 Treatment Therapeutic exercises: TE: 25 min Exercises - Cat Cow - 10 reps - 5 hold - Supine Lower Trunk Rotation - 1-2 x daily - 7 x weekly - 5 reps - 10 hold - Child's Pose Stretch - - 5 reps - 10-20 hold - Half Kneeling Hip Flexor Stretch - 1-2 x daily - 7 x weekly - 3-5 reps - 10-20 hold - Hip Flexor Stretch with Chair - 1-2 x daily - 7 x weekly - 3-5 reps - 10-20 hold Hip abd stretch with PF relaxation 10 Lower trunk rotation x 10 Sitting; Hip er and ir stretches x30 sec x2 Sidelying :open book x 10 reps each side. Manual therapy: MT: 16 min in sidelying ; hip flexor, IT band STM Access Code: [email or web address] URL: [email or web address] Date: 09/19/2024 Prepared by: Raquel Torres Exercises - Cat [...] weekly - 3-5 reps - 10-20 hold - Hip Flexor Stretch with Chair - 1-2 x daily - 7 x weekly - 3-5 reps - 10-20 hold - Sidelying Thoracic Rotation with Open Book - 1-2 x daily - 7 x weekly - 10 reps - 5 hold - Seated Hip External Rotation Stretch - 1-2 x daily - 7 x weekly - 10 reps - 5 hold Assessment Patient tolerated treatment well. Goals Short Term Goals: (set for 4 weeks) Update/Status Patient will be independent with HEP upon D/C in order to promote long-term health and reduce risk for injury. [x] Unmet [] Progressing [] Met Pt to demo understanding of healthy bowel and bladder habits to promote normal ADL function, limiting pain. [x] Unmet [] Progressing [] Met Intermediate Goals: (set for 8 weeks) Update/Status Decrease pain with walking and getting up by 50% [x] Unmet [] Progressing [] Met PSFS will improve by at least 2-3 representing an increase in function. [x] Unmet [] Progressing []Met Plan []Continue per plan of care [] Alter current plan (see comments) [x] Plan of care initiated [] Hold pending MD visit [] Discharge Comment: Electronically signed by: Signed: Raquel Torres PT Date: 09/19/2024 documented in this encounter Plan of Treatment Not on file documented as of this encounter Goals Goal Patient Goal Type Associated Problems Recent Progress Patient-Stated? Author Eat better, exercise, reach an ideal body weight General No Maritza Cook RMA documented as of this encounter Visit Diagnoses Not on filedocumented in this encounter Care Teams Water Pollution Control Technician Relationship Specialty Start Date End Date Loan Vick MD [address] [place] [address] PCP - General Family Medicine 03/23/16 documented as of this encounter
--- OUTSIDE RECORDS SUMMARY | 2024-09-27 14:40 | XMS_ITS | Encounter Summary ---
[facility] Address [address] [place] [address] Care Team Providers Care Burning Supervisor Name Role Phone Loan Vick MD Primary Care Provider +1- [phone] Reason for Referral * Diagnostic Imaging (Routine) - Closed Specialty Diagnoses / Procedures Referred By Contac t Referred To Contact Radiology Diagnoses History of IUFD Procedures [facility] Diagnostic [place] Shameka Chandler MD [address] [place] [address] Phone: tel: fax: Referral ID Status Reason Start Date Expiration Date Visits Re quested Visits Authorized [id number] Closed 08/25/2024 11/24/2025 1 1 Reason for Visit * Diagnostic Imaging (Routine) - Closed Specialty Diagnoses / Procedures Referred By Contjose messina Referred To Contact Radiology Diagnoses History of IUFD Procedures [facility] [place] Shameka Chandler MD [address] [address] Phone: tel: fax: Referral ID Status Reason Start Date Expiration Date Visits Re quested Visits Authorized [id number] Closed 08/25/2024 11/24/2025 1 1 Encounter Details Date Type Department Care Team (Late Contact Info) Description 09/27/2024 2:40 PM EDT - 09/27/2024 11:59 PM EDT Hospital Encounter [facility] [address] [place] [address] Shameka Chandler MD [address] [place] [id number] History of IUFD Discharge Disposition: Home or [...] Description 11/28/2024 2:45 PM EDT Office Visit [facility] MATERNAL MEDICINE [address] [address] 11/28/2024 2:45 PM EDT Appointment [facility] [address] [place] [address] documented as of this encounter Procedures Procedure Name Priority Date/Time Associated Diagnosis Comments [facility] Routine 09/27/2024 3:24 PM EDT History of IUFD documented in this encounter Results * [facility] (09/27/2024 3:24 PM EDT) Anatomical Region Laterality Modality Ultrasound 09/27/2024 2:59 PM EDT Narrative 10/02/2024 7:19 PM EDT PAT NAME: SANDEEP BRITO MED REC#: [id number] DA: 2000 PAT GEND: F PAT TYPE: O EXAM TED: [id number] REF PHYS HARINI MONTEZ Comparison Studies The [...] EFW (oz) 10 oz EFW by: Hadlock (XVX-TA-QX-FL) Extended Foot 44.5 mm 51% Chitty Cav. septi pel. tr 5.3 mm Pantry Chef 4.6 mm CM 6.9 mm 77% Nicolaides [...] IVC: Appears Normal 3-vessel view: Appears normal 9-lfuuju-fcdwtmi view: Appears normal Cord insertion: Normal Stomach: [...] Follow up 4 weeks Coding ======= Description: 88211-78 Follow Up Relay Telegrapher: RT Lashon Wolf , [facility] Physician: Shameka Chandler MD, FACOG Electronically signed by: Shameka Chandler MD, FACOG at: 19:19 Procedure Note Shameka Chandler MD - 10/02/2024 PAT NAME: SANDEEP BRITO MED REC#: [id number] DA: [id number] PAT GEND: F PAT TYPE: O EXAM TED: [id number] REF PHYS HARINI MONTEZ Comparison Studies The findings of this study are compared to the prior ultrasound studydated 08/23/24 Patient Status Outpatient Indication ======== 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 MO BMI 42. H/O seizures. Previous child with cerebralpalsy. Maternal Assessment Ogtjvx699 cm Height (ft)5 ft Height (in)1 in Uclwdj38 kg Weight (lb)219 lb BMI41.89 kg/m Method ======= Transabdominal ultrasound examination. View: Good view ========= Cummins . Number of fetuses: 1 Dating ====== Method of dating:based on stated ROHINI GA by prior kvzkhoemgq70 w + 0 d ROHINI by prior [...] Hadlock Femur43.4 mm 24w 2d 45% Hadlock Zwdxlpy52.4 mm 24w 4d 57% Sindy HC / AC1.10 FMN372 g 24w 5d 81% Hadlock EFW (lb)1 lb EFW (oz)10 oz EFW by:Hadlock (VNS-JZ-KN-FL) Extended Foot44.5 mm 51% Chitty Cav. septi pel. tr5.3 mm Vp4.6 mm CM6.9 mm 77% Nicolaides Nasal bone6.8 mm Head / Face / Neck Cephalic index0.77 30% Nicolaides Extremities / Bony Struc FL / BPD0.70 FL / HC0.19 FL / AC0.21 Other Structures PFR419 bpm General Evaluation Cardiac activity present. FHR [...] SVC:Appears Normal IVC:Appears Normal 3-vessel view:Appears normal 4-cvklwj-fijeimt view:Appears normal Cord insertion:Normal Stomach:Appears normal Kidneys:Appears normal Bladder:Appears normal Gender:female Wants to know gender:yes Maternal Structures Uterus / Cervix Cervix:Visualized Approach:Transabdominal Cervical hshovh64.7 mm Doppler Arterial Umbilical A PI1.16 57% [...] Recommendation Follow up 4 weeks Coding ======= Description:88561-10 Follow Up Relay Telegrapher: RT Lashon Wolf , [facility] Physician: Shameka Chandler MD, FACOG Electronically signed by: Shameka Chandler MD, FACOG at: :19 us Shameka Chandler MD IMG US ORDERABLES Final Result documented in this encounter Visit Diagnoses Diagnosis History of IUFD documented in this encounter Care Teams Burning Supervisor Relationship Specialty Start Date End Date Loan Vick MD [address] [place] [address] PCP - General Family Medicine 08/23/24 documented as of this encounter
--- OUTSIDE RECORDS SUMMARY | 2024-09-27 15:15 | XMS_ITS | Encounter Summary ---
Author Organization [facility] Address [address] [place] [address] Care Team Providers Care Pharmacy Informaticist Name Role Phone Loan Vick MD Primary Care Provider +1- [phone] Reason for Referral * Diagnostic Imaging (Routine) - Closed Specialty Diagnoses / Procedures Referred By Contac t Referred To Contact Radiology Diagnoses History of IUFD Procedures [facility] Shameka Chandler MD [address] [facility] [address] [place] [address] Phone: tel: fax: Referral ID Status Reason Start Date Expiration Date Visits Re quested Visits Authorized Closed 10/02/2024 01/01/2026 1 1 Reason for Visit * Reason Comments 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 child with CP; MO; hx seizures Encounter Details Date Type Department Care Team (Late Contact Info) Description 09/27/2024 3:15 PM EDT Office Visit [facility] MATERNAL MEDICINE [address] [facility] [address] [place] [phone] Shameka Chandler MD [address] [facility] [address] [place] [address] History of IUFD (Primary Dx) Social [...] under imaging tab of patient chart in [facility] (Viewpoint report). Shameka Chandler MD documented in this encounter Plan of Treatment Upcoming Encounters Date Type Department Care Team (Late st Contact Info) Description 11/28/2024 2:45 PM EDT Office Visit [facility] MATERNAL MEDICINE [address] [place] [address] [place] [phone] 11/28/2024 2:45 PM EDT Appointment [facility] [address] [place] [address] documented as of this encounter Results * [facility] (10/25/2024 2:00 PM EDT) Anatomical Region Laterality Modality Ultrasound 10/25/2024 1:37 PM EDT Narrative 10/25/2024 2:13 PM EDT PAT NAME: SANDEEP BRITO MED REC#: [id number] DA: [id number] PAT GEND: F PAT TYPE: O EXAM TED: [id number] REF PHYS HARINI GILBERT Comparison Studies The [...] EFW (oz) 11 oz EFW by: Hadlock ([id number]-NQ-CW-FL) Extended Cav. septi pel. tr 5.8 mm Drafter Cartographic 6.4 mm CM 6.6 mm 47% Nicolaides [...] Normal Heart / Thorax 3-vessel view: Normal 1-yhlitx-hezdqpq view: normal Cord insertion: Normal Stomach: Appears [...] 1 week given size. Coding ======= Description: 43906-09 Follow Up Manager Utilization Management: RT Lashon Wolf , [facility] Physician: Deven Chinchilla MD, FACOG Electronically signed by: Deven Chinchilla MD, FACOG at: 14:13 Procedure Note Deven Chinchilla MD - 10/25/2024 PAT NAME: SANDEEP BRITO MED REC#: [id number] DA: 2000 PAT GEND: F PAT TYPE: O EXAM TED: [id number] REF PHYS HARINI GILBERT Comparison Studies The findings of this study are compared to the prior ultrasound studydated 09/27/24 Patient Status Outpatient Indication ======== 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 MO BMI 42. H/O seizures. Previous child with cerebralpalsy. Maternal Assessment Wqyqfx857 cm Height (ft)5 ft Height (in)1 in Eyjcjc647 kg Weight (lb)221 lb BMI42.27 kg/m Method ======= Transabdominal ultrasound examination. View: Suboptimal view: limited byfetal position ========= Cummins . Number of fetuses: 1 Dating ====== Method of dating:based on stated ROHINI GA by prior pcdwheppxq26 w + 0 d ROHINI by prior assessment:01/17/2025 Ultrasound examination on:10/25/2024 GA by U/S based upon:AC, BPD, Femur, HC GA by U/S30 w + 5 d ROHINI by U/S:12/29/2024 Previous dating:based on stated ROHINI, selected on 09/27/2024 Agreed ROHINI of previous datin01/17/2025 Assigned:based on stated ROHINI, selected on 10/25/2024 Assigned GA28 w + 0 d Assigned ROHINI:01/17/2025 tuxjxe096 d Biometry Standard BPD74.8 mm 30w 0d 92% Hadlock ZHJ437.5 mm 32w 6d >99% Sindy HC280.1 mm 30w 5d 92% Hadlock Cerebellum tr34.6 mm 29w 0d 79% Hill AC278.9 mm 32w 0d >99% Hadlock Femur57.0 mm 29w 6d 86% Hadlock Gqzpuab25.4 mm 29w 0d 72% Sindy HC / AC1.00 EFW1,686 g 30w 5d >99% Hadlock EFW (lb)3 lb EFW (oz)11 oz EFW by:Hadlock (SBV-LJ-SW-FL) Extended Cav. septi pel. tr5.8 mm Vp6.4 mm CM6.6 mm 47% Nicolaides Head / Face / Neck Cephalic index0.74 6% Nicolaides Extremities / Bony Struc FL / BPD0.76 FL / HC0.20 FL / AC0.20 Other Structures MQH390 bpm General Evaluation Cardiac activity present. FHR [...] LVOT view:Normal Heart / Thorax 3-vessel view:Normal 5-kvhikx-jskyclx view:normal Cord insertion:Normal Stomach:Appears normal Kidneys:Appears normal Bladder:Appears normal Gender:female Wants to know gender:yes Maternal Structures Uterus / Cervix Cervix:Visualized Approach:Transabdominal Cervical uryaai01.5 mm Doppler Arterial Umbilical A PI0.87 20% [...] x 1 week given size. Coding ======= Description:40810-28 Follow Up Manager Utilization Management: RT Lashon Wolf , RDMS Physician: Deven Chinchilla MD, FACOG Electronically signed by: Deven Chinchilla MD, ZULEMAOG at: 14:13 us Shameka Chandler MD IMG US ORDERABLES Final Result documented in this encounter Visit Diagnoses Diagnosis History of IUFD- Primary History of IUFD documented in this encounter Care Teams Pharmacy Informaticist Relationship Specialty Start Date End Date Loan Vick MD [address] [place] [address] PCP - General Family Medicine 08/23/24 documented as of this encounter
--- OUTSIDE RECORDS SUMMARY | 2024-10-25 13:26 | XMS_ITS | Encounter Summary ---
Author Organization [facility] Address [address] [place] [id number] Care Team Providers Care Indirect Sales Exec Name Role Phone Loan Vick MD Primary Care Provider +1- [phone] Reason for Referral * Diagnostic Imaging (Routine) - Closed Specialty Diagnoses / Procedures Referred By Contac t Referred To Contact Radiology Diagnoses History of IUFD Procedures US [facility] [place] Shameka Chandler MD [address] [place] [address] Phone: tel: fax: Referral ID Status Reason Start Date Expiration Date Visits Re quested Visits Authorized Closed 10/02/2024 01/01/2026 1 1 Reason for Visit * Diagnostic Imaging (Routine) - Closed Specialty Diagnoses / Procedures Referred By Kennedy messina Referred To Contact Radiology Diagnoses History of IUFD Procedures US [facility] [place] Shameka Chandler MD [address] [address] Phone: tel: fax: Referral ID Status Reason Start Date Expiration Date Visits Re quested Visits Authorized Closed 10/02/2024 01/01/2026 1 1 Encounter Details Date Type Department Care Team (Late st Contact Info) Description 10/25/2024 1:26 PM EDT - 10/25/2024 11:59 PM EDT Hospital Encounter [facility] US PER DIAG CTR [address] [place] [address] Shameka Chandler MD [address] [facility] [address] [place] [address] History of IUFD Discharge Disposition: Home [...] a Day As Needed for Heartburn. glucose blood test strip Use as instructed. Fasting, 2 hours postprandial 50 each 10/25/2024 glucose monitor monitoring kit Use 1 each [...] Description 11/28/2024 2:45 PM EDT Office Visit [facility] [address] [facility] [address] [place] [address] 11/28/2024 2:45 PM EDT Appointment [facility] US PER DIAG CTR [address] [place] [address] documented as of this encounter Procedures Procedure Name Priority Date/Time Associated Diagnosis Comments [facility] Routine 10/25/2024 2:00 PM EDT History of IUFD documented in this encounter Results * [facility] (10/25/2024 2:00 PM EDT) Anatomical Region Laterality Modality Ultrasound 10/25/2024 1:37 PM EDT Narrative 10/25/2024 2:13 PM EDT PAT NAME: SANDEEP BRITO MED REC#: [id number] DA: [id number] PAT GEND: F PAT TYPE: O EXAM TED: [id number] REF PHYS HARINI MONTEZ Comparison Studies The [...] EFW (oz) 11 oz EFW by: Hadlock (YGW-NB-IP-FL) Extended Cav. septi pel. tr 5.8 mm Graining Machine Operator 6.4 mm CM 6.6 mm [...] Normal Heart / Thorax 3-vessel view: Normal 2-tbzstq-higggzc view: normal Cord insertion: Normal Stomach: Appears [...] 1 week given size. 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 MO BMI 42. H/O seizures. Previous child with cerebralpalsy. Maternal Assessment Abpjki553 cm Height (ft)5 ft Height (in)1 in Msfyhl062 kg Weight (lb)221 lb BMI42.27 kg/m Method ======= Transabdominal ultrasound examination. View: Suboptimal view: limited byfetal position ========= Cummins . Number of fetuses: 1 Dating ====== Method of dating:based on stated ROHINI GA by prior gdvhrtorkk83 w + 0 d ROHINI by prior [...] Standard BPD74.8 mm 30w 0d 92% Hadlock OBT114.5 mm 32w 6d >99% Sindy HC280.1 mm 30w 5d 92% Hadlock Cerebellum tr34.6 mm 29w 0d 79% Hill AC278.9 mm 32w 0d >99% Hadlock Femur57.0 mm 29w 6d 86% Hadlock Dlulccg57.4 mm 29w 0d 72% Sindy HC / AC1.00 EFW1,686 g 30w 5d >99% Hadlock EFW (lb)3 lb EFW (oz)11 oz EFW by:Hadlock (XYJ-UG-AP-FL) Extended Cav. septi pel. tr5.8 mm Vp6.4 mm CM6.6 mm 47% Nicolaides Head / Face / Neck Cephalic index0.74 6% Nicolaides Extremities / Bony Struc FL / BPD0.76 FL / HC0.20 FL / AC0.20 Other Structures MKS264 bpm General Evaluation Cardiac activity present. FHR [...] LVOT view:Normal Heart / Thorax 3-vessel view:Normal 0-vqoumu-ukwpvur view:normal Cord insertion:Normal Stomach:Appears normal Kidneys:Appears normal Bladder:Appears normal Gender:female Wants to know gender:yes Maternal Structures Uterus / Cervix Cervix:Visualized Approach:Transabdominal Cervical dzgpog94.5 mm Doppler Arterial Umbilical A PI0.87 20% [...] x 1 week given size. Coding ======= Description:64839-05 Follow Up Emergency Worker: RT Lashon Wolf , RDMS Physician: Deven Chinchilla MD, FACOG Electronically signed by: Deven Chinchilla MD, FACOG at: 14:13 us Shameka Chandler MD IMG US ORDERABLES Final Result documented in this encounter Visit Diagnoses Diagnosis History of IUFD documented in this encounter Care Teams Indirect Sales Exec Relationship Specialty Start Date End Date Loan Vick MD [address] [place] [address] PCP - General Family Medicine 08/23/24 documented as of this encounter
--- OUTSIDE RECORDS SUMMARY | 2024-10-25 14:45 | XMS_ITS | Encounter Summary ---
Author Organization [facility] Address [address] [place] [id number] Care Team Providers Care Media Associate Name Role Phone Loan Vick MD Primary Care Provider +1- [phone] Reason for Referral * Diagnostic Imaging (Routine) - Authorized Specialty Diagnoses / Procedures Referred By Contact Referred To Contact Obstetrics and Gynecology Diagnoses History of IUFD Procedures [facility] Deven Chinchilla MD [address] [facility] [address] [place] [address] Phone: tel: fax: [facility] MATERNAL MEDICINE [address] [facility] [address] [place] [address] Phone: tel: fax: Referral ID Status Reason Start Date Expiration Date V isits Requested Visits Authorized [id number] Authorized 10/25/2024 01/24/2026 2 2 Reason for Visit * Reason Comments hx 39 week IUFD; MO; hx seizures; prev. child with CP Encounter Details Date Type Department Care Team (Late Contact Info) Description 10/25/2024 2:45 PM EDT Office Visit [facility] MATERNAL MEDICINE [address] [facility] [address] [place] [phone] Deven Chinchilla MD [address] [facility] [address] [place] [address] History of IUFD (Primary Dx) Social History [...] take to her appointment with primary SUPERVISOR BLOOMING MILL next week. Patient reports history of decreasedfetal movement for the past day or so though has felt some movement. movement noted on ultrasound today. We discussed careful return precautions regarding decreased movement and to reportto primary SUPERVISOR BLOOMING MILL if decreased movement has occurred. Follow Up [...] [facility]S. Deven Chinchilla MD, FACOG Maternal Medicine, [facility] * Deven Chinchilla MD [...] take to her appointment with primary SUPERVISOR BLOOMING MILL next week. Patient reports history of decreasedfetal movement for the past day or so though has felt some movement. movement noted on ultrasound today. We discussed careful return precautions regarding decreased movement and to reportto primary SUPERVISOR BLOOMING MILL if decreased movement has occurred. documented in this encounter Plan of Treatment Upcoming Encounters Date Type Department Care Team (Late st Contact Info) Description 11/28/2024 2:45 PM EDT Office Visit [facility] MATERNAL MEDICINE [address] [place] [address] [address] [place] [address] 11/28/2024 2:45 PM EDT [facility]ointment [facility] [address] [place] [address] Scheduled Orders Name Type Priority Associated Diagnoses Orde r Schedule [facility] Imaging Routine History of IUFD Every 4 Weeks for 2 Occurrences starting 10/25/2024 until 10/25/2025 documented as of this encounter Visit Diagnoses Diagnosis History of IUFD- Primary documented in this encounter Care Teams Media Associate Relationship Specialty Start Date End Date Loan Vick MD [address] [place] [address] PCP - General Family Medicine 08/23/24 documented as of this encounter
--- OUTSIDE RECORDS SUMMARY | 2024-11-10 07:24 | XMS_ITS | Clinical Summary ---
Author Organization [employer] [facility] Address [address] [address] Phone Care Team Providers Care Plate Worker Helper Name Role Phone Unavailable Unavailable Conditions or Problems No information available. Medications No information available. Medications Administered No information available. Allergies, Adverse Reactions, Alerts No information available. Results No information available. Plan of Care No information available. Procedures Code Procedure Name Date Entry Date CPT-11124 COVID-19 Moderna CPT-0012A IZ administration - COVID-19 - Moderna 2n d dose CPT-94494 COVID-19 Moderna CPT-22392 IZ administration - injection - single 20 [...]
--- OUTSIDE RECORDS SUMMARY | 2024-11-10 07:24 | XMS_ITS | Clinical Summary ---
Author Organization [facility] Address [address] [place] [address] Care Team Providers Care Materials Management Manager Name Role Phone Loan Vick MD Primary Care Provider +1- [phone] Allergies Active Allergy Reactions Criticality Noted Date Comments Amitriptyline Other (See Comments),Seizure High 09/17/2017 seizures Penicillins Anaphylaxis,Shortnes s Of Breath High 03/09/2022 cough Raspberry Swelling High 02/07/2024 Pt states tongue swelling Medications desvenlafaxine (PRISTIQ) 50 MG 24 hr tablet Take 2 tablets by mouth Daily. 4 Active hydrOXYzine (ATARAX) 25 MG tablet Take 1 tablet by mouth 3 (Three) Times a Day As Needed. 4 Active Vit-Fe Fumarate-FA ( vitamin 27-0.8) 27-0.8 MG tablet tablet Take 1 tablet by mouth Daily. Active BABY ASPIRIN PO Take 1 tablet by mouth Daily. Active famotidine (PEPCID) 20 MG tablet Take 1-2 tablets by mouth 2 (Two) Times a Day As Needed for Heartburn. Active glucose blood test strip Use as instructed. Fasting, 2 hours postprandial 50 each 5 Active glucose monitor monitoring kit Use 1 each As Needed (fasting, 2 hours postprandial). 1 each 5 Active Active Problems Problem Noted Date Diagnosed Date History of IUFD 11/09/2023 Assessment & Plan (10/25/2024 2:09 PM EDT): Patient presents for follow-up growth ultrasound secondary to history of IUFD. Today's ultrasound shows concern for macrosomia with overall weight measuring greater than 99th percentile likely secondary to abdominal circumference greater than 99th percentile. We discussed that overall weight is likely driven by abdominal circumference. Amniotic fluid is overall normal though is on the upper limits of normal at 23 cm. Patient reports that she had a 1 hour Glucola this week that was in the 90s. Given size and KALEIGH we have discussed checking blood sugars for 1 week and for patient to take to her appointment with primary LEAD ASSEMBLER next week. Patient reports history of decreased movement for the past day or so though has felt some movement. movement noted on ultrasound today. We discussed careful return precautions regarding decreased movement and to report to primary LEAD ASSEMBLER if decreased movement has occurred. Assessment & Plan (08/25/2024 8:31 PM EDT): Patient previously seen by [facility] for preconception consultation (see note by Dr Chinchilla on 11/09/23) Ultrasound today appears reassuring We will plan for follow up growth q 4 weeks (slightly more frequent than preconception recommendations based on patient anxiety) Recommend weekly testing to begin at 28 weeks and twice weekly starting at 32 weeks GA We reviewed the fact that delivery at 37 weeks is appropriate in the setting of prior term IUFD and notable maternal anxiety though patient should be aware (counseled today) regarding the slightly increased risk of NICU admission for 37 weeks infants. Follow up 4 weeks scheduled Assessment & Plan (11/09/2023 12:30 PM EDT): The incidence of stillbirth is approximately 6 per 1000. Early stillbirth (<28 weeks) has remained constant recently at 3.1 per 1000, but third trimester stillbirth has decreased from 4 per 1000 to 3 per 1000 since 1989. The most prevalent risk factors associated with stillbirth are non- black race, nulliparity, advanced maternal age, multiple gestation, and obesity. Additionally, modifiable risk factors include smoking, alcohol, and drug abuse. Women with previous complications such as , growth restriction (FGR), or preeclampsia, are at increased risk of stillbirth in subsequent pregnancies. The relationship is strongest for explained stillbirth, but there is a persistent 2-fold increase in unexplained stillbirth associated with these complications. In addition, the risk of subsequent stillbirth is twice as high for women with a prior live born, growth restricted delivered before 32 weeks of gestation than for women with a prior stillbirth. The relationship between prior delivery and subsequent stillbirth remains controversial. Potential causes of stillbirth include growth restriction (FGR), placental abruption, chromosomal anomalies (8-15% of all, and >20% if anomalies or FGR), infection (20% <28 weeks but <2% at term), and cord events (frequently diagnosed, although this diagnosis should be made with caution). Her records from her prior stillbirth show no identifiable cause. 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 They had previously declined autopsy. Regarding further workup and management, she has no personal or family history of VTE, and as such we do NOT recommend thrombophilia testing. In low-risk women with unexplained stillbirth, the recurrence risk of stillbirth >20 weeks is 1% with most risk prior to 37 weeks. The risk of recurrent stillbirth after 37 weeks is very low, 2 per 1000. As a significant portion of stillbirth is attributable to growth restriction we recommend a repeat US for growth at 28 weeks. If the US exam is reassuring, she may be followed with fundal height measurements. We discussed the utility of kick counts and recommend these begin at 28 weeks. Given the current data, the utility of antepartum testing (NST, BPP, etc) in preventing recurrent stillbirth is unclear. testing may be a reasonable strategy to attempt to further reduce her risk of stillbirth. Recommendations of prior term stillbirth are individualized though delivery anytime after 37 weeks is reasonable. Family history of cerebral palsy 11/09/2023 Assessment & Plan (11/09/2023 12:36 PM EDT): Patient reports that her son has a diagnosis of cerebral palsy and currently being followed by neurology. This was discovered after workup for potential shortened femur but ultimately determined to be functional as opposed to structural. She reports multiple different brain lesions consistent with cerebral palsy though denies any trauma or issues surrounding . Patient reports no definitive diagnosis of polyhydramnios but at both deliveries there was a discussion of extra fluid. If there was a diagnosis of polyhydramnios there could be a neurologic component attributing to poor outcomes. Her neurologist suggested potential parental testing for workup of this in the setting of this and prior IUFD. We discussed that carrier screening is somewhat limited and generally only test for autosomal recessive traits. We discussed that genetic testing is generally best performed on individual affected. Given this would recommend referral to [facility] for testing of their son. We discussed the potential for parental testing based on testing of their son and would then be able to discussed risk of recurrence if applicable. Estimated Date of Delivery Comme nts Yes 01/17/2025 Date entered stacy or to episode creation Encounters Date Type Department Care Team Description 10/25/2024 2:45 PM EDT Office [facility] [facility] [place] [address] [place] [phone] Deven Chinchilla MD History of IUFD (Primary Dx) 10/25/2024 1:26 PM EDT - 10/25/2024 11:59 PM EDT Hospital Encounter [facility] [address] [place] [address] Shameka Chandler MD History of IUFD Discharge Disposition: Home or Self Care 10/25/2024 Travel 09/27/2024 3:15 PM EDT Office Visit [facility] [address] [facility] [place] [address] [place] [phone] Shameka Chandler MD History of IUFD (Primary Dx) 09/27/2024 2:40 PM EDT - 09/27/2024 11:59 PM EDT Hospital Encounter [facility] [address] [place] [address] Shameka Chandler MD History of IUFD Discharge Disposition: Home or Self Care 09/27/2024 Travel 08/23/2024 12:30 PM EDT Office Visit [facility] [address] [place] [address] [phone] Shameka Chandler MD History of IUFD (Primary Dx) 08/23/2024 11:26 AM EDT - 08/23/2024 11:59 PM EDT Hospital Encounter [facility] [address] [place] [address] Harini Gilbert DO History of stillbirth; Family history of cerebral palsy; , unspecified gestational age Discharge Disposition: Home or Self Care 08/23/2024 Travel from Last 3 Months Social History Tobacco Use Types Packs/Day Years Used Date Smoking Tobacco: Never Smokeless Tobacco: Never Tobacco Cessation:Counseling Given: Not Answered Alcohol Use Standard Drinks/Week Comments Not Currently 0 (1 standard drink = 0.6 oz pur e alcohol) Estimated Date of Delivery Comme nts Yes 01/17/2025 Date entered stacy or to episode creation Sex and Gender Information Value Date Recorded Sex Assigned at Not on file Legal Sex Female 6:01 PM EST Gender Identity Not on file Sexual Orientation Not on file Last Filed Vital Signs Vital Sign Reading Time Taken Comments Blood Pressure 100/69 10/25/2024 1:32 PM EDT Pulse 72 11/09/2023 11:11 AM EDT Temperature - - Respiratory Rate 18 11/09/2023 11:11 AM EDT Oxygen Saturation - - Inhaled Oxygen Concentration - - Weight 101 kg (221 lb 9.6 oz) 10/25/2024 1:32 PM EDT Height 154.9 cm (5' 1 ) 11/09/2023 11:11 AM EDT Body Mass Index 41.87 11/09/2023 11:11 AM EDT Plan of Treatment Upcoming Encounters Date Type Department Care Team (Late st Contact Info) Description 11/28/2024 2:45 PM EDT Office Visit [facility]IC[facility] [address] [address] 11/28/2024 2:45 PM EDT Appointment [facility] [address] [place] [address] Health Maintenance Due Date Last Done Comments Annual Gynecologic Pelvic an d Breast Exam 1998 HPV VACCINES (1 - 3-dose series) 2013 Pneumococcal Vaccine 0-49 (1 of 2 - PCV) 2017 PAP SMEAR 05/12/2023 05/12/2020 ANNUAL PHYSICAL 11/09/2023 COVID-19 Vaccine (2 - 2023-2 5 season) 2023 05/27/2020 RSV Vaccine - Adults (1 - Ri sk 1-dose series) 12/17/2024 INFLUENZA VACCINE 01/16/2025 04/08/2023, , 03/06/2019, Additional history exists TDAP/TD VACCINES (4 - Td or Tdap) 06/20/2033 06/21/2023, 09/04/2021, 12/09/2009 HEPATITIS C SCREENING Completed 01/27/2024 Procedures Procedure Name Priority Date/Time Associated Diagnosis Comments [facility] Routine 10/25/2024 2:00 PM EDT History of IUFD [facility] Routine 09/27/2024 3:24 PM EDT History of IUFD [facility] Routine 08/23/2024 1:12 PM EDT History of stillbirth Family history of cerebral palsy , unspecified gestational age from Last 3 Months Results * [facility] (10/25/2024 2:00 PM EDT) Only the most recent of3 resultswithin the time period is included. Anatomical Region Laterality Modality Ultrasound 10/25/2024 1:37 PM EDT Narrative 10/25/2024 2:13 PM EDT PAT NAME: SANDEEP BRITO MED REC#: [id number] DA: 2000 PAT GEND: F PAT TYPE: O EXAM TED: [id number] REF PHYS HARINI GILBERT Comparison Studies The [...] EFW (oz) 11 oz EFW by: Hadlock ([id number]) Extended Cav. septi pel. tr 5.8 mm Ward Attendant 6.4 mm CM 6.6 mm 47% Nicolaides [...] Normal Heart / Thorax 3-vessel view: Normal 4-klkkna-czwfhpu view: normal Cord insertion: Normal Stomach: Appears [...] 1 week given size. Coding ======= Description: 40269-29 Follow Up Sand Control Worker: RT Lashon Wolf , [facility] Physician: Deven Chinchilla MD, FACOG Electronically signed by: Deven Chinchilla MD, FACOG at: 14:13 Procedure Note Deven Chinchilla MD - 10/25/2024 PAT NAME: SANDEEP BRITO MED REC#: [id number] DA: 2000 PAT GEND: F PAT TYPE: O EXAM TED: [id number] REF PHYS HARINI GILBERT Comparison Studies The findings of this study are compared to the prior ultrasound studydated 09/27/24 Patient Status Outpatient Indication ======== 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 MO BMI 42. H/O seizures. Previous child with cerebralpalsy. Maternal Assessment Wjflur132 cm Height (ft)5 ft Height (in)1 in Csynpp670 kg Weight (lb)221 lb BMI42.27 kg/m Method ======= Transabdominal ultrasound examination. View: Suboptimal view: limited byfetal position ========= Cummins . Number of fetuses: 1 Dating ====== Method of dating:based on stated ROHINI GA by prior [id number] w + 0 d ROHINI by prior assessment:01/17/2025 Ultrasound examination on:10/25/2024 GA by U/S based upon:AC, BPD, Femur, HC GA by U/S30 w + 5 d ROHINI by U/S:12/29/2024 Previous dating:based on stated ROHINI, selected on 09/27/2024 Agreed ROHINI of previous datin01/17/2025 Assigned:based on stated ROHINI, selected on 10/25/2024 Assigned GA28 w + 0 d Assigned ROHINI:01/17/2025 [id number] d Biometry Standard BPD74.8 mm 30w 0d 92% Hadlock KAB141.5 mm 32w 6d >99% Sindy HC280.1 mm 30w 5d 92% Hadlock Cerebellum tr34.6 mm 29w 0d 79% Hill AC278.9 mm 32w 0d >99% Hadlock Femur57.0 mm 29w 6d 86% Hadlock Nvxkyhx69.4 mm 29w 0d 72% Sindy HC / AC1.00 EFW1,686 g 30w 5d >99% Hadlock EFW (lb)3 lb EFW (oz)11 oz EFW by:Hadlock ([id number]-FL) Extended Cav. septi pel. tr5.8 mm Vp6.4 mm CM6.6 mm 47% Nicolaides Head / Face / Neck Cephalic index0.74 6% Nicolaides Extremities / Bony Struc FL / BPD0.76 FL / HC0.20 FL / AC0.20 Other Structures LPL973 bpm General Evaluation Cardiac activity present. FHR [...] LVOT view:Normal Heart / Thorax 3-vessel view:Normal 6-zoxmjl-qxyzeoa view:normal Cord insertion:Normal Stomach:Appears normal Kidneys:Appears normal Bladder:Appears normal Gender:female Wants to know gender:yes Maternal Structures Uterus / Cervix Cervix:Visualized Approach:Transabdominal Cervical ttucpg48.5 mm Doppler Arterial Umbilical A PI0.87 20% [...] x 1 week given size. Coding ======= Description:53823-50 Follow Up Sand Control Worker: RT Lashon Wolf , [facility] Physician: Deven Chinchilla MD, FACOG Electronically signed by: Deven Chinchilla MD, FACOG at: 14:13 us Shameka Chandler MD G US ORDERABLES Final Result from Last 3 Months Insurance [employer] Care Teams Materials Management Manager Relationship Specialty Start Date End Date Loan Vick MD [address] [place], [place] [id number] PCP - General Family Medicine 08/23/24
--- OUTSIDE RECORDS SUMMARY | 2024-11-10 07:25 | XMS_ITS | Encounter Summary ---
Author Organization [place] [address] Care Team Providers Care Rolled Ham Lacer Name Role Phone Loan Vick MD Primary Care Provider +1- [phone] Reason for Visit * Reason Comments Medication Refill Encounter Details Date Type Department Care Team (Late st Contact Info) Description 04/21/2018 Refill [facility] [address] [facility] [place] [address] Loan Vick MD [address] [place] [address] Medication Refill Social History Tobacco [...] documented as of this encounter Care Teams Rolled Ham Lacer Relationship Specialty Start Date End Date Loan Vick MD [address] [place] [phone] PCP - General Family Medicine 03/23/16 documented as of this encounter
--- OUTSIDE RECORDS SUMMARY | 2024-11-10 07:25 | XMS_ITS | Encounter Summary ---
Author Organization [facility] Address [address] [place] [id number] Care Team Providers Care Veneer Grader Name Role Phone Loan Vick MD Primary Care Provider +1- [phone] Encounter Details Date Type Department Care Team (Latest Contact Info) Description 10/25/2024 Travel Social History Tobacco Use Types Packs/Day Years [...] 11/28/2024 2:45 PM EDT [facility] [address] [facility] [place] [address] [place] [address] 11/28/2024 2:45 PM EDT Appointment [facility] [address] [place] [address] documented as of this encounter Visit Diagnoses Not on filedocumented in this encounter Care Teams Veneer Grader Relationship Specialty Start Date End Date Loan Vick MD [address] [place] [address] PCP - General Family Medicine 08/23/24 documented as of this encounter
--- OUTSIDE RECORDS SUMMARY | 2024-11-10 07:25 | XMS_ITS | Encounter Summary ---
[facility] Address [address] [place] [phone] Care Team Providers Care Science Intern Name Role Phone Loan Vick MD Primary Care Provider +1- [phone] Encounter Details Date Type Department Care Team (Latest Contact Info) Description 09/27/2024 Travel Social History Tobacco Use Types Packs/Day [...] Description 11/28/2024 2:45 PM EDT Office Visit [facility] [address] [facility] [address] [address] [place] [address] 11/28/2024 2:45 PM EDT Appointment [facility] [address] [place] [address] documented as of this encounter Visit Diagnoses Not on filedocumented in this encounter Care Teams Science Intern Relationship Specialty Start Date End Date Loan Vick MD [address] [place] [address] PCP - General Family Medicine 08/23/24 documented as of this encounter
--- OUTSIDE RECORDS SUMMARY | 2024-11-10 07:25 | XMS_ITS | Encounter Summary ---
Author Organization [place] Address [address] [facility] [place] [address] Care Team Providers Care Sport Intern Name Role Phone Loan Vick MD Primary Care Provider +1- [phone] Encounter Details Date Type Department Care Team (Latest Contact Info) Description 01/25/2017 Lab Requisition [facility] [address] [place] [phone] Claudia Granado, KJ Encounter for screening for [...] Detected Not Detected 01/26/2017 11:41 AM EDT [facility] Neisseria gonorrhoeae Not Detected Not Detected 01/26/2017 11:41 AM EDT [facility] Swab (specimen) 01/25/2017 1 0:19 AM EDT 01/25/2017 5:18 PM EDT Narrative [facility] - 01/26/2017 11:41 AM EDT Testing methodology is k 12 school principal mediated amplification (TMA) using the Aptima Combo 2 assay from [employer]. A negative result does not completely rule [...] characteristics of this test were validated by [facility] laboratory. This assay is FDA cleared to test the following specimens: clinician-collected endocervical, vaginal and male urethral swab specimens, patient collected vaginal specimens within a clinic setting, Thin Prep Specimens in PreservCyt Solution, and first-stream, unpreserved male urine specimens. Testing on female urine is not FDA approved by this methodology, but has been developed and validated by the [facility] laboratory. Detailed methodology is available upon request. Claudia Granado APRN MICROBIOLOGY - GENERAL ORD ERABLES Final Result [facility] [address] [place] [address] documented in this encounter Visit Diagnoses Diagnosis [...] documented as of this encounter Care Teams Sport Intern Relationship Specialty Start Date End Date Loan Vick MD [address] [place] [address] PCP - General Family Medicine 03/23/16 documented as of this encounter
--- OUTSIDE RECORDS SUMMARY | 2024-11-10 07:25 | XMS_ITS | Clinical Summary ---
Author Organization [facility] Address [address] [place] [address] Phone Care Team Providers Care Meteorological Technician Name Role Phone Loan Vick MD Primary Care Provider +1- [phone] Allergies Active Allergy Reactions Criticality Noted Date [...] inhibitors are contraindicated due to desire for multimedia author - Discussed with Dr. Deven Chinchilla via phone who reminded that cholesterol is essential in and that high cholesterol for short time typically does not warrant treatment. I do agree but feel that treatment is warranted for her half-way health as her cholesterol has been significantly [...] Hospital Encounter [facility] Physical Therapy [address] [place] [address] Raquel Torres, PT Discharge Disposition: Home or Self Care 08/31/2024 12:23 PM EDT - 08/31/2024 11:59 PM EDT Hospital Encounter [address] [place] [address] Raquel Torres, PT Discharge Disposition: Home or Self Care 08/30/2024 Orders Only [facility] Physical [address] [place] [address] Raquel Torres, PT from Last 3 Months [...] (DALK) ; Surgeon: Armando Monreal MD; Location: [facility]; Service: Ophthalmology Medical devices from this surgery are in the Medical Devices section. 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 ENDOSCOPY; Service: Endoscopy UPPER GASTROINTESTINAL ENDOSCOPY 08/07/2015 N/A Surgeon: Jamey Schwab MD; Location: [facility] ENDOSCOPY; Service: Endoscopy DENTAL SURGERY permanent retainer in mouth CATARACT REMOVAL 11/05/2015 Right RIGHT EYE CATARACT EXTRACTION WITH PHACOEMULSIFICATION AND INTRAOCULAR LENS WITH RIGHT EYE WOUND REVISION ; Surgeon: Armando Monreal MD; Location: [facility]; Service: Ophthalmology Medical devices from this surgery are in the Medical Devices section. EYE SURGERY 11/05/2015 Right Surgeon: Armando Monreal MD; Location: [facility]; Service: Ophthalmology Medical devices from this surgery are in the Medical Devices section. EYE SURGERY 02/24/2016 Right RIGHT EYE YAG LASER CAPSULOTOMY; Surgeon: Armando Monreal MD; Location: [facility]; Service: Ophthalmology DILATION AND CURETTAGE OF UTERUS 09/16/2021 - 10/15/2021 CT NEEDLE BIOPSY LIVER 02/07/2024 CT NEEDLE BIOPSY LIVER 02/07/2024 Eduardo Betancourt MD [facility] CT Medical History Medical History Date Comments [...] JULIO CESAR Medical Devices Implanted Type Area Online Affiliate Marketing Manager Device Identifier Shelf Expiration Date Model / Serial / Lot Cornea Tissue - [id number] Implanted:Qty: 1 on 03/27/2014 by Armando Monreal MD at [facility] Right: Eye UNKNOWN 04/01/2014 [id number] / [id number] / Lens Intraocular Preloaded 19.0 Diopter - [id number] Implanted:Qty: 1 on 11/05/2015 by Armando Monreal MD at [facility] Right: Eye EL LAB:SURG 03/17/2018 [id number] / [id number] / Procedures Procedure Name Priority Date/Time Associated Diagnosis Comments SCANNED LABS 11/06/2024 11:04 PM EDT SCANNED LABS 10/24/2024 5:33 PM EDT GC CHLAMYDIA THIN PREP Routine 05/12/2020 11:00 AM EST Well adult exam HOUSEHOLD APPLIANCE REPAIRER CYTOLOGY REQUEST (PAP ONLY) Routine 05/12/2020 11:00 AM EST Well adult exam from Last 3 Months or Most Recently Relevant to Health Maintenance Results * SCANNED LABS (11/06/2024 11:04 PM EDT) Only the most recent of2 resultswithin the time period is included. 11/06/2024 11:0 4 PM EDT us Unknown Provider HEMATOLOGY ORDERABLES Final Res ult * HOUSEHOLD APPLIANCE REPAIRER CYTOLOGY REQUEST (PAP ONLY) (05/12/2020 11:00 AM EST) CASE REPORT Gynecologic Cytology Report Case: [id number] Authorizing Provider: Loan Vick MD Collected: 05/12/2020 1100 Ordering Location: [facility] Received: 05/12/2020 1100 First Screen: Leesa Jose, CT Specimen: LIQUID-BASED PAP - CERVICAL/ENDOCERV ICAL, Cervix, Endocervical 05/14/2020 10:48 AM EST [facility] PAP FINAL DIAGNOSIS Negative for intraepithelial lesion or malignancy 05/14/2020 10:48 AM [facility] at 1048 EST MICROSCOPIC DESCRIPTION Microscopic examination is performed and the findings corroborate the diagnosis 05/14/2020 10:48 AM EST [facility] PAP SMEAR ADEQUACY Satisfactory for evaluation 05/14/2020 10:48 AM EST [facility] ENDOCERVICAL T-ZONE Transformation zone absent. 05/14/2020 10:48 AM EST [facility] EMBEDDED IMAGES 10:48 AM [facility] PAP DISCLAIMER The Pap Smear is a screening test that aids in the detection of cervical cancer and cancer precursors. Both false positive and false negative results can occur. The test should be used at regular intervals, and positive results should be confirmed before definitive therapy. Processed using the ThinPrep Hand Edger Automated cytology screening device ([employer]). 05/14/2020 10:48 AM EST [facility] Thin Prep ENDOCERVICAL STRUCTURE / Unknown 05/12/2020 11:00 AM EST 05/12/2020 11:00 AM EST us Loan Vick MD CYTOLOGY ORDERABLES Final Result [facility] [address] [place] [id number] * GC CHLAMYDIA THIN PREP (05/12/2020 11:00 AM EST) Chlamydia trachomatis Not Detected Not Detected 05/13/2020 5:39 PM EST PREFERRED [facility] Neisseria gonorrhoeae Not Detected Not Detected 05/13/2020 5:39 PM EST [facility] Thin Prep SPECIMEN FROM UTERINE CERVIX / Unknown 05/12/2020 11:00 AM EST 05/12/2020 11:00 AM EST Narrative PREFERRED [employer] - 05/13/2020 5:39 PM EST Testing methodology is mortgage loan processor mediated amplification (TMA) using the Aptima Combo 2 assay from [employer]. A negative result does not completely rule [...] specimens. Detailed methodology is available upon request. us Loan Vick MD MICROBIOLOGY - GENERAL ORD ERABLES Final Result [facility] [employer] [address] [place] [address] from Last 3 Months or Most Recently Relevant to Health Maintenance Insurance [employer] P[employer] PPO Care Teams Meteorological Technician Relationship Specialty Start Date End Date Loan Vick MD [address] [place] [address] PCP - General Family Medicine 03/23/16
--- OUTSIDE RECORDS SUMMARY | 2024-11-10 07:25 | XMS_ITS | Encounter Summary ---
Author Organization [facility] [address] Care Team Providers Care Security Solutions Architect Name Role Phone Loan Vick MD Primary Care Provider +1- [phone] Encounter Details Date Type Department Care Team (Late st Contact Info) Description 08/30/2024 Orders Only [facility] Physical Therapy [facility] [address] [facility] [place] [address] Raquel Torres, PT [address] [place] [address] Social History Tobacco Use Types [...] on filedocumented in this encounter Care Teams Security Solutions Architect Relationship Specialty Start Date End Date Loan Vick MD [address] [place] [address] PCP - General Family Medicine 03/23/16 documented as of this encounter
[2024-11-10 07:40] VITALS: BP 105/66; PULSE 97; RESP 16; TEMP 36.9; O2SAT 97; BMI 40.6
--- NOTE | 2024-11-10 08:29 | EXP.PN ---
Subjective *Date: 11/10/24 *Time: 08:29 Interval history: Presents for an NST. She had an NST in the office 2 days prior and had variable decelerations on it but was reactive. She presents for follow-up given her history of term stillbirth Exam Constitutional Constitutional: no acute distress *Routine HEENT Exam Head: Present normocephalic *Routine Respiratory Exam Respiratory: Present normal respiratory effort; Absent accessory muscle use Assessment and Plan *Assessment and plan (1) Stillbirth with antepartum : Status: Acute Category: Medical Code(s): Z37.1 - Single stillbirth (2) 30 weeks gestation of : Status: Acute Category: Medical Code(s): Z3A.30 - 30 weeks gestation of Plan NST reactive Doing well Return precautions reviewed in detail
== END 2024-11-10 08:17 | disposition home or self-care (01) ==
LOC: OBOUT 07:23 → OB 07:24
PROVIDERS: PCP Family Medicine; Visit Provider Obstetrics & Gynecology
DX: Z34.83 Encounter for supervision of other normal pregnancy, third trimester (principal); Z3A.30 30 weeks gestation of pregnancy
CPT/HCPCS: 59025; 99212; G0463

== ENCOUNTER 2024-11-14 12:48 | Outpatient (CLI) | payer BC, SELFPAY ==
--- OUTSIDE RECORDS SUMMARY | 2022-03-09 07:20 | XMS_ITS | Continuity of Care Document ---
Author Organization [facility] Address [address] [place] [address] Phone Care Team Providers Care Project Facilitator Name Role Phone Armando Monreal MD Unavailable [...] VISIT, EST, Moderate [facility], [address] [place], [address], [place] tel:[phone] [facility] s/p DALK OD (chief complaint) Corneal transplant statusDry eye syndrome of bilateral lacrimal glands [address] [facility]. [address] [place] [address] Road, [address], [place], [place], [address]. tel:[phone] Referring Provider: Yesy Eid, [address], [place], [address]. tel:[phone] [facility], [address] [place], [place], [facility], [place] tel:[phone] [facility] No Information [address] [facility]. [address] [place] [address] Road, [address], [place], [place], [address]. tel:[phone] [facility], [address] [place], [place], [facility], [place] tel:[phone] [facility] No Information [address] [facility]. [address] [place] [address], [address], [place], [place], [address]. tel:[phone] OFFICE/OUTPA TIENT VISIT, EST, Low [facility], [address] [place], [address], [place] tel:[phone] [facility] 4-6 month f/u (chief complaint) Irregular astigmatism, right eyeCorneal transplant statusPresenc e of intraocular lens [address] [facility]. [address] [place] [address], [address], [place], [place], [address]. tel:[phone] Referring Provider: Yesy Eid, [address], [place], [address]. tel:[phone] OFFICE/OUTPA TIENT VISIT, EST, Low [facility], [address] [place], [address], [place] tel:[phone] [facility] [place] blurry vision follow up (chief complaint) Corneal transplant statusVitreou s degeneration of right eyePhotopsia of right eyeHeadache, unspecifiedDr y eye syndrome of bilateral lacrimal glands 1 Rahda Landa. [address] [place], [place], [id number], . tel:[phone] Referring Provider: No Ref Doc No Referring Doc. OFFICE/OUTPA TIENT VISIT, EST [facility], [address] [place], [address], [place] tel:[phone] [facility] 4 mo corneal ck (chief complaint) Dry eye syndrome of bilateral lacrimal glandsCorneal transplant rejectionCorn eal transplant statusPresenc e of intraocular lens Oct-3 0-[address] [facility]. [address] [place] [address], [address], [place], [place], [address]. tel:[phone] Referring Provider: Armando Ervin, [address] [place] [address] [address], [place], [address]. tel:[phone] OFFICE/OUTPA TIENT VISIT, EST [facility], [address] [place], [facility], tel:[phone] [facility] 3-4 mo corneal follow up (chief complaint) Corneal transplant statusDry eye of right sideIrregular astigmatism, right eye Akshat-0 9-[address] [facility]. [address] [place] [address], [address], [place], [place], [address]. tel:[phone] Referring Provider: Armando Ervin, [address] [place] [address] [address], [place], [address]. tel:[phone] OFFICE/OUTPA TIENT VISIT, EST [facility], [address] [place], [facility], [place] tel:[phone] [facility] 5 mo corneal f/u (chief complaint) Corneal transplant statusPresenc e of intraocular lensDry eye syndrome of bilateral lacrimal glands Oct-0 [address] [facility]. [address] [place] [address], [address], [place], [place], [address]. tel:[phone] Referring Provider: Armando Ervin, [address] [place] [address] [address], [place], [address]. tel:[phone] OFFICE/OUTPA TIENT VISIT, EST [facility], [address] [place], [address], [place] tel:[phone] [facility] 4 month glaucoma follow up (chief complaint) At low risk for open-angle glaucoma in both eyesCorneal transplant statusPresenc e of intraocular lens 9 Tati Garcia. [address] [place], [place], [address]. [phone] Referring Provider: Radha Walsh, [address] [place], [address]. [phone] OFFICE/OUTPA TIENT VISIT, EST [facility], [address] [place], [address], [place] tel:[phone] [facility] 4 month cornea follow up (chief complaint) Corneal transplant statusPresenc e of intraocular lensDry eye syndrome of bilateral lacrimal glands 9 Rah Roberts. [address] [place] [address] Road, [address], [place], [place], [address]. tel:[phone] Referring Provider: Armando Ervin, [address] [place] [address] Road [address], [place], [address]. tel:[phone] OFFICE/OUTPA TIENT VISIT, EST [facility], [address] [place], [address], [place] tel:[phone] [facility] 3 month glaucoma follow up (chief complaint) At low risk for open-angle glaucoma in both eyes 9 Juancarmine Naqvissica. [address] [place], [place], [address]. [phone] Referring Provider: No Ref Doc No Referring Doc. OFFICE/OUTPA TIENT VISIT, EST [facility], [address] [place], [address], [place] [phone] [facility] 3 month cornea follow up (chief complaint) Corneal transplant status 9 Rah Roberts. [address] [place] [address] Road, [address], [place], [place], [address]. tel:[phone] Other Provider: Yesy Eid, [address] [place], [address]. tel:[phone] ng Provider: No Ref Doc No Referring Doc. OFFICE/OUTPA TIENT VISIT, EST [facility], [address] [place], [address], [place] tel:[phone] [facility] glaucoma consult per [facility] (chief complaint) At low risk for open-angle glaucoma in both eyesPresence of intraocular lensCorneal transplant status 8 Tati Garcia. [address] [place], [place], [address]. tel:[phone] Referring Provider: No Ref Doc No Referring Doc. OFFICE/OUTPA TIENT VISIT, EST [facility], [address] [place], [address], [place] tel:[phone] [facility] 2 month cornea follow up (chief complaint) Corneal transplant statusDry eye of right sidePseudopha malou Oct-[address] [facility]. [address] [place] [address], [address], [place], [place], [address]. tel:[phone] Referring Provider: No Ref Doc No Referring Doc. OFFICE/OUTPA TIENT VISIT, EST [facility], [address] [place], [address], [place] tel:[phone] [facility] cornea follow up (chief complaint) Corneal transplant rejectionCorn eal transplant status 8 Rio Dean. [address] [place], [place], [address]. tel:[phone] Referring Provider: No Ref Doc No Referring Doc. [facility], [address] [place], [address], [place] tel:[phone] [facility] 4-6 wk Cornea ck (chief complaint) Corneal transplant statusCorneal transplant rejectionDry eye syndrome of bilateral lacrimal glandsPseudop hakia [address] [facility]. [address] [place] [address], [address], [place], [place], [address]. tel:[phone] Referring Provider: No Ref Doc No Referring Doc. OFFICE/OUTPA TIENT VISIT, EST [facility], [address] [place], [address], tel:[phone] [facility] cornea follow up (chief complaint) Corneal transplant statusDry eye syndrome of bilateral lacrimal glandsPseudop hakiaCorneal transplant rejection [address] [facility]. [address] [place] [address], [address], [place], [place], [address]. tel:[phone] Referring Provider: No Ref Doc No Referring Doc. OFFICE/OUTPA TIENT VISIT, EST [facility], [address] [place], [facility], tel:[phone] [facility] 3-4 mo Cornea ck (chief complaint) Dry eye of right sideCorneal transplant statusBlurry vision, right eyePseudophak ia [address] [facility]. [address] [place] [address], [place] [address], [place], [place], [address]. tel:[phone] Referring Provider: No Ref Doc No Referring Doc. OFFICE/OUTPA TIENT VISIT, EST [facility], [address] [place], [facility], tel:[phone] [facility] headaches (chief complaint) Corneal transplant statusDry eye of right sidePseudopha kiaPersistent headaches 8 Cristobal Healiq. [address] [place], [place], [address], [place]. tel:[phone] Referring Provider: No Ref Doc No Referring Doc. OFFICE/OUTPA TIENT VISIT, EST [facility], [address] [place], [address], [place] tel:[phone] [facility] 5 mo cornea fu (chief complaint) Corneal transplant statusDry eye of right sidePseudopha malou [address] [facility]. [address] [place] [address], [address], [place], [place], [address]. tel:[phone] Referring Provider: No Ref Doc No Referring Doc. OFFICE/OUTPA TIENT VISIT, EST [facility], [address] [place], [address], [place] tel:[phone] [facility] 3-4 mo check (chief complaint) Corneal transplant statusPseudop hakia [facility]. [address] [place] [address], [address], [place], [place], [address]. tel:[phone] Referring Provider: Armando Ervin, [address] [place] [address] [address], [place], [address]. tel:[phone] OFFICE/OUTPA TIENT VISIT, EST [facility], [address] [place], [address], [place] tel:[phone] [facility] 3 MO CORNEA FU (chief complaint) Corneal transplant statusDry eye of right side [facility]. [address] [place] [address], [address], [place], [place], [address]. tel:[phone] Referring Provider: Yesy Eid, [address] [place], [address]. tel:[phone] OFFICE/OUTPA TIENT VISIT, EST [facility], [address] [place], [address], [place] tel:[phone] [facility] cornea check (chief complaint) Corneal transplant statusPseudop hakiaDry eye of right side [address] [facility]. [address] [place] [address], [address], [place], [place], [address]. tel:[phone] Referring Provider: Yesy Eid, [address], [place], [address]. tel:[phone] OFFICE/OUTPA TIENT VISIT, EST [facility], [address] [place], [address], [place] tel:[phone] [facility] [facility] pain (chief complaint) Corneal transplant statusPhotops ia of right eyeBlurry vision, right eye 7 Jaya Riverat. [address], [address], [place], [address], [place]. tel:[phone] Referring Provider: Yesy Eid, [address], [place], [address]. tel:[phone] [facility], [address] [place], [address], [place] tel:[phone] [facility] [place] Follow Up of 4-6 Yag (chief complaint) Corneal transplant statusPseudop hakiaEncntr for f/u exam aft trtmt for cond oth than malig neoplm 6 No Information Referring Provider: Yesy Eid, [address] [place], [address]. [phone] [facility], [address] [place], [address], [place] tel:[phone] [facility] Encntr for f/u exam aft trtmt for cond oth than malig neoplm 6 No Information Referring Provider: Yesy Eid, [address], [place], [address]. [phone] [facility], [address] [place], [address], [place] tel:[phone] [facility] Other secondary cataract, right eye [address] [facility]. [address] [place] [address], [address], [place], [place], [address]. tel:[phone] Referring Provider: Yesy Eid, [address], [place], [address]. tel:[phone] OFFICE/OUTPA TIENT VISIT, EST [facility], [address] [place], [address], [place] tel:[phone] [facility] Other secondary cataract, right eye [address] [facility]. [address] [place] [address], [address], [place], [place], [address]. tel:[phone] Referring Provider: Yesy Eid, [address] [place], [address]. tel:[phone] [facility], [address] [place], [address], [place] tel:[phone] [facility] Encntr for f/u exam aft trtmt for cond oth than malig neoplm 6 Rio Dean. [address] [place], [place], [address]. tel:[phone] Referring Provider: Yesy Eid, [address] [place], [address]. tel:[phone] [facility], [address] [place], [address], [place] tel:[phone] [facility] Presence of intraocular lens 6 No Information Referring Provider: Yesy Eid, [address] [place], [address]. tel:[phone] [facility], [address] [place], [address], [place] tel:[phone] [facility] Other age-related cataractAge-r elated nuclear cataract, right eyeIrregular astigmatism, right eye [facility]. [address] [place] [address], [address], [place], [place], [address]. tel:[phone] Referring Provider: Yesy Eid, [address] [place], [address]. tel:[phone] OFFICE/OUTPA TIENT VISIT, EST [facility], [address] [place], [address], [place] tel:[phone] [facility] cataract evaluation (chief complaint) Corneal transplant statusPosteri or subcapsular polar age-related cataract, right eye [facility]. [address] [place] [address], [address], [place], [place], [address]. tel:[phone] Referring Provider: Yesy Eid, [address], [place], [address]. tel:[phone] OFFICE/OUTPA TIENT VISIT, EST [facility], [address] [place], [address], [place] tel:[phone] [facility] pain OD (chief complaint) Corneal transplant statusPosteri or subcapsular polar age-related cataract, right eye Apr-[address] [facility]. [address] [place] [address], [address], [place], [place], [address]. tel:[phone] Referring Provider: Yesy Eid, [address], [place], [address]. tel:[phone] OFFICE/OUTPA TIENT VISIT, EST [facility], [address] [place], [address], [place] tel:[phone] [facility] cornea follow up (chief complaint) Corneal transplant statusRegular astigmatism, right eye Apr-[address] [facility]. [address] [place] [address], [address], [place], [place], [address]. tel:[phone] Referring Provider: Yesy Eid, [address], [place], [address]. tel:[phone] OFFICE/OUTPA TIENT VISIT, EST [facility], [address] [place], [address], [place] tel:[phone] [facility] 2 WEEK FU DALK OD (chief complaint) Corneal transplant statusPosteri or subcapsular polar age-related cataract, right eye Mar-[address] [facility]. [address] [place] [address], [address], [place], [place], [address]. tel:[phone] Referring Provider: Yesy Eid, [address], [place], [address]. tel:[phone] OFFICE/OUTPA TIENT VISIT, EST [facility], [address] [place], [address], [place] tel:[phone] [facility] redness (chief complaint) Corneal transplant status 6 No Information Referring Provider: Yesy Eid, [address] [place], [address]. tel:[phone] OFFICE/OUTPA TIENT VISIT, EST [facility], [address] [place], [address], [place] tel:[phone] [facility] Urgent (chief complaint) Corneal transplant status 6 Riooscar Dean. [address] [place], [place], [address]. tel:[phone] Referring Provider: Yesy Eid, [address] [place], [address]. tel:[phone] OFFICE/OUTPA TIENT VISIT, EST [facility], [address] [place], [address], [place] tel:[phone] [facility] Urgent possible loose stitch od (chief complaint) Corneal transplant status No Information Referring Provider: Yesy Eid, [address] [place], [address]. tel:[phone] OFFICE/OUTPA TIENT VISIT, EST [facility], [address] [place], [address], [place] tel:[phone] [facility] 1 mo check (chief complaint) Corneal transplant statusPosteri or subcapsular polar age-related cataract, right eye 5 Rio Dean. [address] [place], [place], [address]. tel:[phone] Referring Provider: Yesy Eid, [address] [place], [address]. tel:[phone] OFFICE/OUTPA TIENT VISIT, EST [facility], [address] [place], [address], [place] tel:[phone] [facility] Urgent possible loose suture (chief complaint) Corneal transplant status Oct-0 5-201 5 Rio Dean. [address] [place], [place], [address]. tel:[phone] Referring Provider: Yesy Eid, [address] [place], [address]. tel:[phone] OFFICE/OUTPA TIENT VISIT, EST [facility], [address] [place], [address], [place] tel:[phone] [facility] urgent- pain, possible suture broken (chief complaint) No Information Sep-0 8- 5 Rio Dean. [address] [place], [place], [address]. tel:[phone] Referring Provider: Yesy Eid, [address] [place], [address]. tel:[phone] OFFICE/OUTPA TIENT VISIT, EST [facility], [address] [place], [facility], [place] tel:[phone] [facility] cornea follow up (chief complaint) No Information [address] [facility]. [address] [facility] [address], [address], [place], [place], [address]. tel:[phone] Referring Provider: Yesy Eid, [address] [place], [address]. tel:[phone] OFFICE/OUTPA TIENT VISIT, EST [facility], [address] [place], [address], [place] tel:[phone] [facility] Cornea Follow Up (chief complaint) No Information [address] [facility]. [address], [address], [place], [place], [address]. tel:[phone] Referring Provider: Yesy Eid, [address], [place], [address]. tel:[phone] OFFICE/OUTPA TIENT VISIT, EST [facility], [address] [place], [address], [place] tel:[phone] [facility] cornea follow up (chief complaint) No Information [address] [facility]. [address] [place] [address] Road, [address], [place], [place], [address]. tel:[phone] Referring Provider: Yesy Eid, [address] [place], [address]. tel:[phone] OFFICE/OUTPA TIENT VISIT, EST [facility], [address] [place], [address], tel:[phone] [facility] urgent pain od x 2 days (chief complaint) No Information 5 No Information Referring Provider: Yesy Eid, [address] [place], [address]. tel:[phone] OFFICE/OUTPA TIENT VISIT, EST [facility], [address] [place], [address], tel:[phone] [facility] 2 mo fu s/p dalk od 03/27/14 (chief complaint) No Information Sep- [address] [facility]. [address] [place] [address], [address], [place], [place], [address]. tel:[phone] Referring Provider: Yesy Eid, [address] [place], [address]. tel:[phone] OFFICE/OUTPA TIENT VISIT, EST [facility], [address] [place], [address], [place] tel:[phone] [facility] cornea follow up (chief complaint) No Information 3 0- [address] [facility]. [address] [facility], [address], [place], [place], [address]. tel:[phone] Referring Provider: Yesy Eid, [address] [place], [address]. tel:[phone] [facility], [address] [place], [address], [place] tel:[phone] [facility] No Information [address] [facility]. [address], [address], [place], [place], [address]. tel:[phone] Referring Provider: Yesy Eid, [address], [place], [address]. tel:[phone] [facility], [address] [place], [address], [place] tel:[phone] [facility] No Information 5 No Information Referring Provider: Yesy Eid, [address], [place], [address]. tel:[phone] [facility], [address] [place], [address], [place] tel:[phone] [facility] No Information [address] [facility]. [address], [address], [place], [place], [address]. tel:[phone] Referring Provider: Yesy Eid, [address], [place], [address]. tel:[phone] [facility], [address] [place], [address], [place] tel:[phone] [facility] No Information [address] [facility]. [address], [address], [place], [place], [address]. tel:[phone] Referring Provider: Yesy Eid, [address], [place], [address]. tel:[phone] [facility], [address] [place], [address], [place] tel:[phone] [facility] No Information 5 Rio Dean. [address] [place], [place], [id number]. tel:[phone] Referring Provider: Yesy Eid, [address], [place], [address]. tel:[phone] [facility], [address] [place], [address], [place] tel:[phone] [facility] vision is improved OD (chief complaint)+ Dryness after gtts OD (chief complaint)D ur- QID ,rest-BID, Comb-QD-OD OD (chief complaint) No Information 5 Rio Dean. [address] [place], [place], [id number]. tel:[phone] Referring Provider: Yesy Eid, [address] [place], [address]. tel:[phone] [facility], [address] [place], [address], [place] tel:[phone] [facility] No Information Mar- [address] [facility]. [address] [place] [address], [address], [place], [place], [address]. tel:[phone] Referring Provider: Yesy Eid, [address] [place], [address]. tel:[phone] [facility], [address] [place], [address], [place] tel:[phone] ABELARDO Aviles Pt doing okay pain 2 on a 1-10 scale OD (chief complaint)D ur-QID, rest-BID, ltx-QHS-OD OD (chief complaint) No Information [address] [facility]. [address] [place] [address], [address], [place], [place], [address]. tel:[phone] Referring Provider: Yesy Eid, [address] [place], [address]. tel:[phone] [facility], [address] [place], [address], [place] tel:[phone] ABELARDO [facility] No Information Mar-[address] [facility]. [address] [place] [address], [address], [place], [place], [address]. tel:[phone] Referring Provider: Yesy Eid, [address] [place], [address]. tel:[phone] [facility], [address] [place], [address], [place] tel:[phone] [facility] No Information 4 [facility]. [address] [place], [place], [id number], [place]. tel:[phone] Referring Provider: Armando Ervin, [address] [place] [address] [address], [place], [address]. tel:[phone] [facility], [address] [place], [address], [place] tel:[phone] [facility] No Information 4 Surjit Oliveira. [address] [place], [place], [id number], [place]. tel:[phone] Referring Provider: Yesy Eid, [address] [place], [address]. tel:[phone] [facility], [address] [place], [address], [place] tel:[phone] [facility] no complaints OD (chief complaint)d ur qid, ltx osmin qhs, rest bid, levo bid OD (chief complaint) No Information 4 Rah Roberts. [address] [place] [address], [address], [place], [place], [address]. tel:[phone] Referring Provider: Yesy Eid, [address] [place], [address]. tel:[phone] [facility], [address] [place], [address], [place] tel:[phone] [facility] No Information 4 Rah Roberts. [address] [place] [address], [address], [place], [place], [address]. tel:[phone] Referring Provider: Yesy Eid, [address] [place], [address]. tel:[phone] [facility], [address] [facility] [place] [place], [address], [place] tel:[phone] [facility] No Information 0- [address] [facility]. [address], [address], [place], [place], [address]. tel:[phone] Referring Provider: Yesy Eid, [address] [place], [address]. tel:[phone] [facility], [address] [place], [address], [place] tel:[phone] [facility] No Information Mar- 0- 4 Surjit Oliveira. [address] [place], [place], [id number], [place]. tel:[phone] Referring Provider: Yesy Eid, [address] [place], [address]. tel:[phone] OFFICE/OUTPA TIENT VISIT, EST [facility], [address] [place], [address], [place] tel:[phone] [facility] pain (chief complaint) No Information Dec-0 3 4 No Information Referring Provider: Yesy Eid, [address] [place], [address]. tel:[phone] OFFICE/OUTPA TIENT VISIT, EST CVP Physician s, [address] [place], [address], [place] tel:[phone] [facility] cornea follow up (chief complaint) No Information Dec-[address] [facility]. [address] [place] [address], [address], [place], [place], [address]. tel:[phone] Referring Provider: Yesy Eid, [address] [place], [address]. tel:[phone] OFFICE/OUTPA TIENT VISIT, EST CVP Physician s, [address] [place], [address], [place] tel:[phone] [facility] Contact lens evaluation (chief complaint) No Information 4 [facility]. [address] [place], [place], [id number]. tel:[phone] Referring Provider: Yesy Eid, [address], [place], [address]. tel:[phone] OFFICE/OUTPA TIENT VISIT, EST CVP Physician s, [address] [place], [address], tel:[phone] [facility] cornea follow up (chief complaint) No Information [address] [facility]. [address] [place] [address], [address], [place], [place], [address]. tel:[phone] Referring Provider: Yesy Eid, [address], [place], [address]. tel:[phone] OFFICE/OUTPA TIENT VISIT, EST CVP Physician s, [address] [place], [place], [facility], tel:[phone] [facility] cornea follow up (chief complaint) No Information [address] [facility]. [address] [place] [address], [address], [place], [place], [id number]. tel:[phone] Referring Provider: Yesy Eid, [address] [place], [address]. tel:[phone] OFFICE/OUTPA TIENT VISIT, EST CVP Physician s, [address] [place], [address], [place] tel:[phone] [facility] [place] cornea follow up (chief complaint) No Information [address] [facility]. [address] [place] [address], [address], [place], [place], [address]. tel:[phone] Referring Provider: Yesy Eid, [address] [place], [address]. tel:[phone] OFFICE/OUTPA TIENT VISIT, EST CVP Physician s, [address] [place], [address], tel:[phone] [facility] No Information 4 [facility]. [address] [place] [address] Road, [address], [place], [place], [address]. tel:[phone] Referring Provider: Yesy Eid, [address], [place], [address]. tel:[phone] OFFICE/OUTPA TIENT VISIT, EST CVP Physician s, [address] [place], [address], [place] tel: [phone] [facility] No Information 3 [facility]. [address] [place] [address] Road, [address], [place], [place], [address]. tel:[phone] Referring Provider: Yesy Eid, [address] [place], [address]. tel:[phone] OFFICE/OUTPA TIENT VISIT, EST CVP Physician s, [address] [place], [address], [place] tel:[phone] [facility] No Information 3 [facility]. [address] [place] [address] Road, [address], [place], [place], [id number]. tel:[phone] Referring Provider: Yesy Eid, [address] [place], [address]. tel:[phone] OFFICE/OUTPA TIENT VISIT, EST CVP Physician s, [address] [place], [address], [place] tel: [phone] [facility] No Information 3 [facility]. [address] [place] [address] Road, [address], [place], [place], [address]. tel:[phone] Referring Provider: Yesy Eid, [address] [place], [address]. tel:[phone] OFFICE/OUTPA TIENT VISIT, EST CVP Physician s, [address] [place], [address], [place] tel: [phone] [facility] No Information [address] [facility]. [address] [place] [address], [address], [place], [place], [address]. tel:[phone] Referring Provider: Yesy Eid, [address] [place], [address]. tel:[phone] OFFICE/OUTPA TIENT VISIT, EST CVP Physician s, [address] [place], [address], [place] tel:[phone] [facility] No Information [address] [facility]. [address] [place] [address], [address], [place], [place], [address]. tel:[phone] Referring Provider: Yesy Eid, [address] [place], [address]. tel:[phone] OFFICE/OUTPA TIENT VISIT, EST CVP Physician s, [address] [place], [address], [place] tel:[phone] [facility] No Information [address] [facility]. [address] [place] [address], [address], [place], [place], [address]. tel:[phone] Referring Provider: Yesy Eid, [address] [place], [address]. tel:[phone] OFFICE/OUTPA TIENT VISIT, EST CVP Physician s, [address] [place], [address], [place] tel:[phone] [facility] No Information [address] [facility]. [address] [place] [address], [address], [place], [place], [address]. tel:[phone] Referring Provider: Yesy Eid, [address] [place], [address]. tel:[phone] OFFICE/OUTPA TIENT VISIT, EST CVP Physician s, [address] [place], [address], [place] tel:[phone] [facility] No Information 2 [place]. [address] [place], [place], [id number]. tel:[phone] Referring Provider: Yesy Eid, [address], [place], [address]. tel:[phone] OFFICE/OUTPA TIENT VISIT, EST CVP Physician s, [address] [place], [address], [place] tel:[phone] [facility] No Information 2 [facility]. [address] [place] [address] Road, [address], [place], [place], [address]. tel:[phone] Referring Provider: Yesy Eid, [address] [place], [address]. tel:[phone] [facility] Physician s, [address] [place], [address], [place] tel:[phone] [facility] No Information 2 [facility]. [address] [place] [address] Road, [address], [place], [place], [address]. tel:[phone] OFFICE/OUTPA TIENT VISIT, EST CVP Physician s, [address] [place], [address], [place] tel:[phone] [facility] No Information 2 [facility]. [address] [place] [address] Road, [address], [place], [place], [address]. tel:[phone] Referring Provider: Yesy Eid, [address] [place], [address]. tel:[phone] OFFICE/OUTPA TIENT VISIT, EST CVP Physician s, [address] [place], [address], [place] tel:[phone] [facility] No Information 2 [facility]. [address] [place] [address] Road, [address], [place], [place], [address]. tel:[phone] Referring Provider: Yesy Eid, [address], [place], [address]. tel:[phone] OFFICE/OUTPA TIENT VISIT, EST CVP Physician s, [address] [place], [address], [place] tel:[phone] [facility] No Information [address] [facility]. [address] [place] [address], [address], [place], [place], [address]. tel:[phone] Referring Provider: Yesy Eid, [address], [place], [address]. tel:[phone] OFFICE/OUTPA TIENT VISIT, EST CVP Physician s, [address] [place], [address], [place] tel:[phone] [facility] No Information [address] [facility]. [address] [place] [address], [address], [place], [place], [address]. tel:[phone] Referring Provider: Yesy Eid, [address], [place], [address]. tel:[phone] OFFICE/OUTPA TIENT VISIT, EST CVP Physician s, [address] [place], [address], [place] tel:[phone] [facility] No Information [address] [facility]. [address] [place] [address], [address], [place], [place], [address]. tel:[phone] Referring Provider: Yesy Eid, [address], [place], [address]. tel:[phone] OFFICE/OUTPA TIENT VISIT, EST CVP Physician s, [address] [place], [address], [place] tel:[phone] [facility] No Information [address] [facility]. [address] [place] [address], [address], [place], [place], [address]. tel:[phone] Referring Provider: Yesy Eid, [address], [place], [address]. tel:[phone] OFFICE/OUTPA TIENT VISIT, EST CVP Physician s, [address] [place], [address], tel:[phone] [facility] No Information [address] [facility]. [address] [place] [address], [address], [place], [place], [address]. tel:[phone] Referring Provider: Yesy Eid, [address] [place], [address]. tel:[phone] OFFICE/OUTPA TIENT VISIT, EST CVP Physician s, [address] [place], [address], tel:[phone] [facility] No Information [address] [facility]. [address] [place] [address], [address], [place], [place], [address]. tel:[phone] Referring Provider: Yesy Eid, [address] [place], [address]. tel:[phone] OFFICE/OUTPA TIENT VISIT, EST CVP Physician s, [address] [place], [address], tel:[phone] [facility] No Information [address] [facility]. [address] [place] [address], [address], [place], [place], [address]. tel:[phone] Referring Provider: Armando Ervin, [address] [place] [address] [address], [place], [address]. tel:[phone] OFFICE/OUTPA TIENT VISIT, EST CVP Physician s, [address] [place], [address], tel:[phone] [facility] No Information [address] [facility]. [address] [place] [address], [address], [place], [place], [address]. tel:[phone] Family History Family Member Type Diagnosis Age [...] Provider Payers Payer name Insurance type Covered alliance party ID Christos gary(anya) [facility] - [id number] CI [id number] Social History Type Description Quantity Date Captured [...] it will need to be sent through [facility] Meds:pred 3/0xiidra 2/0 Reason For Referral Reason [...] it will need to be sent through [facility] Meds:pred 3/0xiidra 2/0 4-6 month f/u Pt [...] checked locally for possible retina issues and [facility] local md assured her everything was fine. [...] Valtrex 500 mg Qd, AT 6-8, & [place] 3's. 3 month glaucoma follow up The [...] has occasional dryness OD. glaucoma consult per [facility] The 17 year old female presents for evaluation of glaucoma consult per [facility] in the right and left eyes. States [...] Cornea ck The 16 year 9 m [facility] old female presents for evaluation of 3-4 [...] Pt's mom states that pt was in [place] last week and had a sudden va decrease and saw a Belt Sewer in [place] and they were supposed to send their notes to [facility]. I looked through pt's chart and was [...] 6-8x daily OD-RTC when pt home from [facility] for fall break or prn (pt [...] QD Related to See impression details - - Continue Restasi s BID OD- Continue Durezol TID OD- Continue ATs 6-8x QD OD- Continue Valtrex 500mg QD-f/u with [facility] in 5 months Related to See impression [...] TID, restasis BID, valtrex- has f/u with [facility] in May Related to See impression details [...] measurements Related to See impression details - 1. [...] reasess with BMG3. F/U as scheduled with [facility] (include MR/MARILYNN at next [facility] visit as planned) Related to See impression details - Return - 1 week wi th Orestes Taylorx, OD for follow up exam. Related to See impression details - . CPM, increase t ears today2. RTC with [facility] as sched Related to See impression details - Return - keep current appointm ent Related to See impression details - -Continue current rotd-Hvsana-np with [facility] as scheduled 0MR/MARILYNN next visit as before) Related to See impression details - Return - 2 months Related to S ee impression details - 1. CPM2. RTC 2 mo' s with [facility] or prn-marilynn, mr, iop, ejh Related to See impression details - add antibiotic x 3 days, cont other meds, rtc 1mo Related to See impression details - 1. add vig tid x 3 days2. rtc with [facility] as sched or prn Related [...] visit. Related to See impression details - -Continue Restasis bid-Increase Durezol to QID OD-Switch Acyclovir to Valtrex 500mg QD - due to pt c/o upset stomach-Reassess in 1 week with BMG Related to See impression details - Return in 1 week w isabela Pepper, OD for follow up exam. Related to See impression details - Return in 2 months with Armando Monreal MD with Marilynn OD Related to See impression details - -Continue Restasis bid-Continue Durezol QD OD-Switch Acyclovir to Valtrex 500mg QD - due to pt c/o upset stomach-Vigamox TID x3 days OD Related to See impression details - 2 months [facility] with Marilynn Related to See impression details - cont restasis bidd ecrease Durezol to QDacyclovir 400 mg PO BIDtopo next visit and consider suture removal Related to See impression details - Return in 4-6 weeks. Related t o DALK - -Consulted with MARIAN - [facility] recommends cyclo-RTC as scheduled with [facility] Related to DALK - -RTC 6-8 weeks, [...] 1 week. Related to D ALK - . Proceed with BILLIE RICHARDSON as scheduled2. [place] [facility] use Related to See impression details - Return in as scheduled Related to See impression details - Return in as scheduled Related to See impression details - . Schedule DALK O D - Discussed risks, benefits, procedures and recovery. Patient desires to have surgery. Related to See impression details - [facility] to determine next step, waiting to hear back Related to See impression and plan - Return with ERS fo r marilynn and hard contact lens fit for the right eye. Explained in details for the vision disconnect. Related to See impression and plan - return to ers for hard contact and marilynn od, per [facility] Related to See impression and plan - RETURN IN ONE MTH WITH [facility] Rel ated to See impression details - 1.Patient here tod ay for decreased vision in the right eye. Discussed with patient and family the need for a corneal transplant, along with risks and benefits. Will re-assess for surgery at next visit, to consider DALK.2. Decrease the Durezol to TID OD. scribed by patria Related to See impression details - RETURN WITH [facility] IN 2-3 WEEKS [place] Related [...] plan - RETURN IN 3 MONTHS WITH [facility] Re lated to See impression: general plan [...] - RETURN IN 3-4 WEEK S WITH [facility]-CAT EVAL OD Related to POST SUBCAP SENILE [...] CATAR - RETURN IN 5-6 WEEKS WITH [facility] R chiloated to See impression: general plan [...] ZOSTER KERATOCONJUNCT - RETURN NEXT TUESDAY WITH [facility] IN [place] Related to See impression: general [...] plan - RETURN IN ONE WEEK WITH [facility] Re lated to H SIMPLEX KERATITIS ISK [...] See impression: general plan - return with [facility] Related to See impression: general plan Assessments Type Assessment Date assessment Corneal transplant status assessment 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
--- OUTSIDE RECORDS SUMMARY | 2024-09-19 09:49 | XMS_ITS | Encounter Summary ---
Author Organization [place] [address] Care Team Providers Care Jewelry Manager Name Role Phone Loan Vick MD Primary Care Provider +1- [phone] Reason for Visit * Physical Medicine (Routine) - Authorized Specialty Diagnoses / Procedures Referred By Contac t Referred To Contact Physical Therapist / Physical Therapy Diagnoses Diagnosis unknown Procedures PELVIC FLOOR Iram Valladares, DO [address] [address] Phone: tel: fax: Raquel Torres, PT [address] [place] [address] Phone: tel: fax: Referral ID Status Reason Start Date Expiration Date V isits Requested Visits Authorized [id number] Authorized 08/31/2024 08/31/2025 1 90 Encounter Details Date Type Department Care Team (Latest Contact Info) Description 09/19/2024 9:49 AM EDT - 09/19/2024 11:59 PM EDT Hospital Encounter [facility] Physical Therapy [facility] [address] [place] [address] Raquel Torres, PT [address] [place] [address] Discharge Disposition: Home or Self [...] Chelle Mccrary - 09/19/2024 10:51 AM EDT Program_ID:[id number] Access Code: [email or web address] URL: [email or web address] Date: 09-19-2024 Prepared By: Raquel Torres Program [...] 1 month Diagnosis: pelvic pain during Restrictions/Precautions: [place] Physician: Vladimir ANDRE Follow Up: 09/11/24 she is high risk Evaluation Date: 08/31/2024 Reassessment Due: 10/01/24 Current Bladder treatment (meds):none Current Bowel treatment (supplements/meds):none [] Psyllium (amount): [] other Primary Insurance: [employer] Insurance Authorization: Time In/Out: 1000/1050 Timed Treatment Minutes: Manual therapy techniques 16 [...] hip flexor, IT band STM Access Code: [email or web address] URL: [email or web address] Date: 09/19/2024 Prepared by: Raquel Torres Exercises [...] pain. [x] Unmet [] Progressing [] Met Chcf Goals: (set for 8 weeks) Update/Status Decrease [...] on filedocumented in this encounter Care Teams Jewelry Manager Relationship Specialty Start Date End Date Loan Vick MD [address] [place] [address] PCP - General Family Medicine 03/23/16 documented as of this encounter
--- OUTSIDE RECORDS SUMMARY | 2024-09-27 14:40 | XMS_ITS | Encounter Summary ---
[facility] Address [address] [place] [address] Care Team Providers Care Fire Captain Marine Name Role Phone Loan Vick MD Primary Care Provider +1- [phone] Reason for Referral * Diagnostic Imaging (Routine) - Closed Specialty Diagnoses / Procedures Referred By Contac t Referred To Contact Radiology Diagnoses History of IUFD Procedures [facility] [place] Shameka Chandler MD [address] [place] [address] Phone: tel: fax: Referral ID Status Reason Start Date Expiration Date Visits Re quested Visits Authorized [id number] Closed 08/25/2024 11/24/2025 1 1 Reason for Visit * Diagnostic Imaging (Routine) - Closed Specialty Diagnoses / Procedures Referred By Contjose messina Referred To Contact Radiology Diagnoses History of IUFD Procedures [facility] [place] Shameka Chandler MD [address] [address] Phone: tel: fax: Referral ID Status Reason Start Date Expiration Date Visits Re quested Visits Authorized [id number] Closed 08/25/2024 11/24/2025 1 1 Encounter Details Date Type Department Care Team (Late Contact Info) Description 09/27/2024 2:40 PM EDT - 09/27/2024 11:59 PM EDT Hospital Encounter [facility] [address] [place] [address] Shameka Chandler MD [address] [place] [id number] History of IUFD Discharge Disposition: Home or [...] Description 11/28/2024 2:45 PM EDT Office Visit [facility] MATERNAL MEDICINE [address] [address] 11/28/2024 2:45 PM EDT Appointment [facility] [address] [place] [address] documented as of this encounter Procedures Procedure Name Priority Date/Time Associated Diagnosis Comments [facility] Routine 09/27/2024 3:24 PM EDT History of IUFD documented in this encounter Results * [facility] (09/27/2024 3:24 PM EDT) Anatomical Region Laterality Modality Ultrasound 09/27/2024 2:59 PM EDT Narrative 10/02/2024 7:19 PM EDT PAT NAME: SANEDEP BRITO MED REC#: [id number] DA: 2000 PAT GEND: F PAT TYPE: O EXAM TED: [id number] REF PHYS HARINI MONTEZ Comparison Studies The [...] EFW (oz) 10 oz EFW by: Hadlock (THG-NY-MK-FL) Extended Foot 44.5 mm 51% Chitty Cav. septi pel. tr 5.3 mm Supervisor Core Shop 4.6 mm CM 6.9 mm 77% Nicolaides [...] IVC: Appears Normal 3-vessel view: Appears normal 5-podich-itelnss view: Appears normal Cord insertion: Normal Stomach: [...] dates. Limited anatomic survey appears normal. The KALEIGH is normal. 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 MO BMI 42. H/O seizures. Previous child with cerebralpalsy. Maternal Assessment Dbpreq834 cm Height (ft)5 ft Height (in)1 in Jueydy64 kg Weight (lb)219 lb BMI41.89 kg/m Method ======= Transabdominal ultrasound examination. View: Good view ========= Cummins . Number of fetuses: 1 Dating ====== Method of dating:based on stated ROHINI GA by prior psvotbvinp75 w + 0 d ROHINI by prior assessment:01/17/2025 Ultrasound examination on:09/27/2024 GA by U/S based upon:AC, BPD, Femur, HC GA by U/S25 w + 0 d ROHINI by U/S:01/10/2025 Previous dating:based on stated ROHINI, selected on 08/23/2024 Agreed ROHINI of previous datin01/17/2025 Assigned:based on stated ROHINI, selected on 09/27/2024 Assigned GA24 w + 0 d Assigned ROHINI:01/17/2025 omgjjf551 d Biometry Standard BPD62.4 mm 25w 2d 86% Hadlock OFD81.3 mm 26w 3d 99% Sindy HC229.5 mm 25w 0d 70% Hadlock Cerebellum tr28.9 mm 25w 2d 93% Hill AC207.7 mm 25w 2d 81% Hadlock Femur43.4 mm 24w 2d 45% Hadlock Cxhjjon29.4 mm 24w 4d 57% Sindy HC / AC1.10 MFE300 g 24w 5d 81% Hadlock EFW (lb)1 lb EFW (oz)10 oz EFW by:Hadlock (DZS-CA-DH-FL) Extended Foot44.5 mm 51% Chitty Cav. septi pel. tr5.3 mm Vp4.6 mm CM6.9 mm 77% Nicolaides Nasal bone6.8 mm Head / Face / Neck Cephalic index0.77 30% Nicolaides Extremities / Bony Struc FL / BPD0.70 FL / HC0.19 FL / AC0.21 Other Structures ZMT786 bpm General Evaluation Cardiac activity present. FHR [...] SVC:Appears Normal IVC:Appears Normal 3-vessel view:Appears normal 8-kelptn-trpaedx view:Appears normal Cord insertion:Normal Stomach:Appears normal Kidneys:Appears normal Bladder:Appears normal Gender:female Wants to know gender:yes Maternal Structures Uterus / Cervix Cervix:Visualized Approach:Transabdominal Cervical ghycqp41.7 mm Doppler Arterial Umbilical A PI1.16 57% [...] Recommendation Follow up 4 weeks Coding ======= Description:09266-04 Follow Up Senior Application Software Engineer: RT Lashon Wolf , [facility] Physician: Shameka Chandler MD, FACOG Electronically signed by: Shameka Chandler MD, FACOG at: :19 us Shameka Chandler MD IMG US ORDERABLES Final Result documented in this encounter Visit Diagnoses Diagnosis History of IUFD documented in this encounter Care Teams Fire Captain Marine Relationship Specialty Start Date End Date Loan Vick MD [address] [place] [address] PCP - General Family Medicine 08/23/24 documented as of this encounter
--- OUTSIDE RECORDS SUMMARY | 2024-09-27 15:15 | XMS_ITS | Encounter Summary ---
Author Organization [facility] Address [address] [place] [address] Care Team Providers Care Meal Cooker Name Role Phone Loan Vick MD Primary Care Provider +1- [phone] Reason for Referral * Diagnostic Imaging (Routine) - Closed Specialty Diagnoses / Procedures Referred By Contac t Referred To Contact Radiology Diagnoses History of IUFD Procedures [facility] Shameka Chandler MD [address] [facility] [address] [place] [phone] Phone: tel: fax: Referral ID Status Reason Start Date Expiration Date Visits Re quested Visits Authorized Closed 10/02/2024 01/01/2026 1 1 Reason for Visit * Reason Comments 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 child with CP; MO; hx seizures Encounter Details Date Type Department Care Team (Late Contact Info) Description 09/27/2024 3:15 PM EDT Office Visit [facility] MATERNAL MED[facility]INE [address] [facility] [address] [place] [id number] Shameka Chandler MD [address] [facility] [address] [place] [phone] History of IUFD (Primary Dx) Social [...] under imaging tab of patient chart in [facility] (Viewpoint report). Shameka Chandler MD documented in this encounter Plan of Treatment Upcoming Encounters Date Type Department Care Team (Late st Contact Info) Description 11/28/2024 2:45 PM EDT Office Visit [facility] MATERNAL MEDICINE [address] [place] [address] [place] [phone] 11/28/2024 2:45 PM EDT Appointment [facility] [address] [place] [address] documented as of this encounter Results * [facility] (10/25/2024 2:00 PM EDT) Anatomical Region Laterality Modality Ultrasound 10/25/2024 1:37 PM EDT Narrative 10/25/2024 2:13 PM EDT PAT NAME: SANDEEP BRITO MED REC#: [id number] DA: [id number] PAT GEND: F PAT TYPE: O EXAM TED: [id number] REF PHYS HARINI GILBERT Comparison Studies The [...] EFW (oz) 11 oz EFW by: Hadlock ([id number]) Extended Cav. septi pel. tr 5.8 mm Correctional Officer Lieutenant 6.4 mm CM 6.6 mm 47% Nicolaides [...] Normal Heart / Thorax 3-vessel view: Normal 3-xhvafj-cuehzvr view: normal Cord insertion: Normal Stomach: Appears [...] 1 week given size. Coding ======= Description: [id number] Follow Up Basting Puller: RT Lashon Wolf , [facility] Physician: Deven Chinchilla MD, FACOG Electronically signed by: Deven Chinchilla MD, FACOG at: 14:13 Procedure Note Deven Chinchilla MD - 10/25/2024 PAT NAME: SANDEEP BRITO MED REC#: [id number] DA: 2000 PAT GEND: F PAT TYPE: O EXAM TED: [id number] REF PHYS HARINI GILBERT Comparison Studies The findings of this study are compared to the prior ultrasound studydated 09/27/24 Patient Status Outpatient Indication ======== 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 MO BMI 42. H/O seizures. Previous child with cerebralpalsy. Maternal Assessment Pucdsm839 cm Height (ft)5 ft Height (in)1 in Kkrulg625 kg Weight (lb)221 lb BMI42.27 kg/m Method ======= Transabdominal ultrasound examination. View: Suboptimal view: limited byfetal position ========= Cummins . Number of fetuses: 1 Dating ====== Method of dating:based on stated ROHINI GA by prior [id number] w + 0 d ROHINI by prior [...] Standard BPD74.8 mm 30w 0d 92% Hadlock OUM633.5 mm 32w 6d >99% Sindy HC280.1 mm 30w 5d 92% Hadlock Cerebellum tr34.6 mm 29w 0d 79% Hill AC278.9 mm 32w 0d >99% Hadlock Femur57.0 mm 29w 6d 86% Hadlock Iedurwf81.4 mm 29w 0d 72% Sindy HC / AC1.00 EFW1,686 g 30w 5d >99% Hadlock EFW (lb)3 lb EFW (oz)11 oz EFW by:Hadlock ([id number]) Extended Cav. septi pel. tr5.8 mm Vp6.4 mm CM6.6 mm 47% Nicolaides Head / Face / Neck Cephalic index0.74 6% Nicolaides Extremities / Bony Struc FL / BPD0.76 FL / HC0.20 FL / AC0.20 Other Structures BHH857 bpm General Evaluation Cardiac activity present. FHR [...] LVOT view:Normal Heart / Thorax 3-vessel view:Normal 1-bkjgzp-pxuvcab view:normal Cord insertion:Normal Stomach:Appears normal Kidneys:Appears normal Bladder:Appears normal Gender:female Wants to know gender:yes Maternal Structures Uterus / Cervix Cervix:Visualized Approach:Transabdominal Cervical akwadc67.5 mm Doppler Arterial Umbilical A PI0.87 20% [...] x 1 week given size. Coding ======= Description:[id number] Follow Up Basting Puller: RT Lashon Wolf , RDMS Physician: Deven Chinchilla MD, FACOG Electronically signed by: Deven Chinchilla MD, ZULEMAOG at: 14:13 us Shameka Chandler MD IMG US ORDERABLES Final Result documented in this encounter Visit Diagnoses Diagnosis History of IUFD- Primary History of IUFD documented in this encounter Care Teams Meal Cooker Relationship Specialty Start Date End Date Loan Vick MD [address] [place] [address] PCP - General Family Medicine 08/23/24 documented as of this encounter
--- OUTSIDE RECORDS SUMMARY | 2024-10-25 13:26 | XMS_ITS | Encounter Summary ---
Author Organization [facility] Address [address] [place] [id number] Care Team Providers Care Vp Customer Development Name Role Phone Loan Vick MD Primary Care Provider +1- [phone] Reason for Referral * Diagnostic Imaging (Routine) - Closed Specialty Diagnoses / Procedures Referred By Contac t Referred To Contact Radiology Diagnoses History of IUFD Procedures [facility] [place] Shameka Chandler MD [address] [place] [address] Phone: tel: fax: Referral ID Status Reason Start Date Expiration Date Visits Re quested Visits Authorized Closed 10/02/2024 01/01/2026 1 1 Reason for Visit * Diagnostic Imaging (Routine) - Closed Specialty Diagnoses / Procedures Referred By Kennedy messina Referred To Contact Radiology Diagnoses History of IUFD Procedures [facility] [place] Shameka Chandler MD [address] [address] Phone: tel: fax: Referral ID Status Reason Start Date Expiration Date Visits Re quested Visits Authorized Closed 10/02/2024 01/01/2026 1 1 Encounter Details Date Type Department Care Team (Late st Contact Info) Description 10/25/2024 1:26 PM EDT - 10/25/2024 11:59 PM EDT Hospital Encounter [facility] [address] [place] [address] Shameka Chandler MD [address] [facility] [address] [place] [address] History of IUFD Discharge Disposition: [...] Description 11/28/2024 2:45 PM EDT Office Visit [facility] [facility] [address] [place] [address] 11/28/2024 2:45 PM EDT Appointment [facility] [address] [place] [address] documented as of this encounter Procedures Procedure Name Priority Date/Time Associated Diagnosis Comments [facility] Routine 10/25/2024 2:00 PM EDT History of IUFD documented in this encounter Results * [facility] (10/25/2024 2:00 PM EDT) Anatomical Region Laterality Modality Ultrasound 10/25/2024 1:37 PM EDT Narrative 10/25/2024 2:13 PM EDT PAT NAME: SANDEEP BRITO MED REC#: [id number] DA: [id number] PAT GEND: F PAT TYPE: O EXAM TED: [id number] REF PHYS HARINI MONTEZ Comparison Studies The [...] EFW (oz) 11 oz EFW by: Hadlock (OEM-UE-RQ-FL) Extended Cav. septi pel. tr 5.8 mm Duck Farmer 6.4 mm CM 6.6 mm 47% Nicolaides [...] Normal Heart / Thorax 3-vessel view: Normal 5-lakfrm-ekaqpax view: normal Cord insertion: Normal Stomach: Appears [...] 1 week given size. 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 MO BMI 42. H/O seizures. Previous child with cerebralpalsy. Maternal Assessment Aythlm761 cm Height (ft)5 ft Height (in)1 in Tydnva815 kg Weight (lb)221 lb BMI42.27 kg/m Method [...] GA28 w + 0 d Assigned ROHINI:01/17/2025 citznl259 d Biometry Standard BPD74.8 mm 30w 0d 92% Hadlock LGL140.5 mm 32w 6d >99% Sindy HC280.1 mm 30w 5d 92% Hadlock Cerebellum tr34.6 mm 29w 0d 79% Hill AC278.9 mm 32w 0d >99% Hadlock Femur57.0 mm 29w 6d 86% Hadlock Dschdyb24.4 mm 29w 0d 72% Sindy HC / AC1.00 EFW1,686 g 30w 5d >99% Hadlock EFW (lb)3 lb EFW (oz)11 oz EFW by:Hadlock (UEA-PL-LL-FL) Extended Cav. septi pel. tr5.8 mm Vp6.4 mm CM6.6 mm 47% Nicolaides Head / Face / Neck Cephalic index0.74 6% Nicolaides Extremities / Bony Struc FL / BPD0.76 FL / HC0.20 FL / AC0.20 Other Structures UEA062 bpm General Evaluation Cardiac activity present. FHR [...] LVOT view:Normal Heart / Thorax 3-vessel view:Normal 6-huzqqw-vzhatzi view:normal Cord insertion:Normal Stomach:Appears normal Kidneys:Appears normal Bladder:Appears normal Gender:female Wants to know gender:yes Maternal Structures Uterus / Cervix Cervix:Visualized Approach:Transabdominal Cervical jkvteu46.5 mm Doppler Arterial Umbilical A PI0.87 20% [...] x 1 week given size. Coding ======= Description:79217-48 Follow Up Rim Fire Charger Operator: RT Lashon Wolf , RDMS Physician: Deven Chinchilla MD, FACOG Electronically signed by: Deven Chinchilla MD, FACOG at: 14:13 us Shameka Chandler MD IMG US ORDERABLES Final Result documented in this encounter Visit Diagnoses Diagnosis History of IUFD documented in this encounter Care Teams Vp Customer Development Relationship Specialty Start Date End Date Loan Vick MD [address] [place] [address] PCP - General Family Medicine 08/23/24 documented as of this encounter
--- OUTSIDE RECORDS SUMMARY | 2024-10-25 14:45 | XMS_ITS | Encounter Summary ---
Author Organization [facility] Address [address] [place] [id number] Care Team Providers Care Metal Trim Erector Name Role Phone Loan Vick MD Primary Care Provider +1- [phone] Reason for Referral * Diagnostic Imaging (Routine) - Authorized Specialty Diagnoses / Procedures Referred By Contact Referred To Contact Obstetrics and Gynecology Diagnoses History of IUFD Procedures [facility] Deven Chinchilla MD [address] [facility] [address] [place] [address] Phone: tel: fax: [facility] [address] [facility] [address] [place] [address] Phone: tel: fax: Referral ID Status Reason Start Date Expiration Date V isits Requested Visits Authorized [id number] Authorized 10/25/2024 01/24/2026 2 2 Reason for Visit * Reason Comments hx 39 week IUFD; MO; hx seizures; prev. child with CP Encounter Details Date Type Department Care Team (Late Contact Info) Description 10/25/2024 2:45 PM EDT Office Visit [facility] [address] [facility] [address] [place] [id number] Deven Chinchilla MD [address] [facility] [address] [place] [address] History of IUFD (Primary Dx) Social History [...] to take to her appointment with primary BARREL BRANDER next week. Patient reports history of decreasedfetal movement for the past day or so though has felt some movement. movement noted on ultrasound today. We discussed careful return precautions regarding decreased movement and to reportto primary BARREL BRANDER if decreased movement has occurred. Follow Up [...] [facility]. Deven Chinchilla MD, FACOG Maternal Medicine, [facility] * Deven Chinchilla MD [...] to take to her appointment with primary BARREL BRANDER next week. Patient reports history of decreasedfetal movement for the past day or so though has felt some movement. movement noted on ultrasound today. We discussed careful return precautions regarding decreased movement and to reportto primary BARREL BRANDER if decreased movement has occurred. documented in this encounter Plan of Treatment Upcoming Encounters Date Type Department Care Team (Late st Contact Info) Description 11/28/2024 2:45 PM EDT Office Visit [facility] [address] [place] [address] [address] [place] [address] 11/28/2024 2:45 PM EDT Appointment [facility] [address] [place] [address] Scheduled Orders Name Type Priority Associated Diagnoses Orde r Schedule [facility] Imaging Routine History of IUFD Every 4 Weeks for 2 Occurrences starting 10/25/2024 until 10/25/2025 documented as of this encounter Visit Diagnoses Diagnosis History of IUFD- Primary documented in this encounter Care Teams Metal Trim Erector Relationship Specialty Start Date End Date Loan Vick MD [address] [place] [address] PCP - General Family Medicine 08/23/24 documented as of this encounter
--- OUTSIDE RECORDS SUMMARY | 2024-11-14 12:50 | XMS_ITS | Clinical Summary ---
Author Organization [facility] Address [address] [address] Phone Care Team Providers Care Ointment Mill Tender Name Role Phone Unavailable Unavailable Conditions or Problems No information available. Medications No information available. Medications Administered No information available. Allergies, Adverse Reactions, Alerts No information available. Results No information available. Plan of Care No information available. Procedures Code Procedure Name Date Entry Date CPT-86053 COVID-19 Moderna CPT-0012A IZ administration - COVID-19 - Moderna 2n d dose CPT-89181 COVID-19 Moderna CPT-66485 IZ administration - injection - single 20 [...]
--- OUTSIDE RECORDS SUMMARY | 2024-11-14 12:51 | XMS_ITS | Clinical Summary ---
Author Organization [facility] Address [address] [place] [address] Care Team Providers Care Pattern Chain Builder Name Role Phone Loan Vick MD Primary Care Provider +1- [phone] Allergies Active Allergy Reactions Criticality Noted Date [...] to take to her appointment with primary LAMINATION INSPECTOR next week. Patient reports history of decreased movement for the past day or so though has felt some movement. movement noted on ultrasound today. We discussed careful return precautions regarding decreased movement and to report to primary LAMINATION INSPECTOR if decreased movement has occurred. Assessment & Plan (08/25/2024 8:31 PM EDT): Patient previously seen by [facility] for preconception consultation (see note by [...] Delivery Comme nts Yes 01/17/2025 Date entered stayc or to episode creation Encounters Date Type Department Care Team Description 10/25/2024 2:45 PM EDT Office Visit [facility] [address] [facility] [place] [address] [place] [phone] Deven Chinchilla MD History of IUFD (Primary Dx) 10/25/2024 1:26 PM EDT - 10/25/2024 11:59 PM EDT Hospital Encounter [facility] [address] [place] [address] Shameka Chandler MD History of IUFD Discharge Disposition: Home or Self Care 10/25/2024 Travel 09/27/2024 3:15 PM EDT Office Visit [facility] [address] [facility] [address] [place] [phone] Shameka Chandler MD History of IUFD (Primary Dx) 09/27/2024 2:40 PM EDT - 09/27/2024 11:59 PM EDT Hospital Encounter [facility] [address] [place] [address] Shameka Chandler MD History of IUFD Discharge Disposition: Home or Self Care 09/27/2024 Travel 08/23/2024 12:30 PM EDT Office Visit [facility] MATERNAL MEDICINE [address] [place] [address] [phone] Shameka Chandler MD History of IUFD (Primary Dx) 08/23/2024 11:26 AM EDT - 08/23/2024 11:59 PM EDT Hospital Encounter [facility] [address] [place] [address] Harini Gilbert DO History of [...] Description 11/28/2024 2:45 PM EDT Office Visit [facility] MATERNAL MEDICINE [address] [address] 11/28/2024 2:45 PM EDT Appointment [facility] [address] [place] [address] Health Maintenance Due Date Last Done Comments Annual Gynecologic Pelvic an d Breast Exam 1998 HPV VACCINES (1 - 3-dose series) 2013 Pneumococcal Vaccine 0-49 (1 of 2 - PCV) 2017 PAP SMEAR 05/12/2023 05/12/2020 ANNUAL PHYSICAL 11/09/2023 COVID-19 Vaccine (2 - 2023-2 5 season) 2023 05/27/2020, 04/29/2020 RSV Vaccine - Adults (1 - Ri sk 1-dose series) 12/17/2024 INFLUENZA VACCINE 01/16/2025 04/08/2023, , 03/06/2019, Additional history exists TDAP/TD VACCINES (4 - Td or Tdap) 06/20/2033 06/21/2023, 09/04/2021, 12/09/2009 HEPATITIS C SCREENING Completed 01/27/2024 Procedures Procedure Name Priority Date/Time Associated Diagnosis Comments [facility] Routine 10/25/2024 2:00 PM EDT History of IUFD [facility] Routine 09/27/2024 3:24 PM EDT History of IUFD [facility] Routine 08/23/2024 1:12 PM EDT History of stillbirth Family history of cerebral palsy , unspecified gestational age from Last 3 Months Results * [facility] (10/25/2024 2:00 PM EDT) Only the most recent of3 resultswithin the time period is included. Anatomical Region Laterality Modality Ultrasound 10/25/2024 1:37 PM EDT Narrative 10/25/2024 2:13 PM EDT PAT NAME: SANDEEP BRITO MED REC#: [id number] DA: 2000 PAT GEND: F PAT TYPE: O EXAM TED: [id number] REF PHYS HARINI GILBERT Comparison Studies The [...] EFW (oz) 11 oz EFW by: Hadlock ([id number]) Extended Cav. septi pel. tr 5.8 mm Window Trimmer 6.4 mm CM 6.6 mm 47% Nicolaides [...] Normal Heart / Thorax 3-vessel view: Normal 1-ngjfqt-efrhmdl view: normal Cord insertion: Normal Stomach: Appears [...] 1 week given size. Coding ======= Description: 73392-83 Follow Up [facility] Room Service Supervisor: RT Lashon Wolf , [place] Physician: Deven Chinchilla MD, FACOG Electronically signed by: Deven Chinchilla MD, FACOG at: 14:13 Procedure Note Deven Chinchilla MD - 10/25/2024 PAT NAME: SANDEEP BRITO MED REC#: [id number] DA: 2000 PAT GEND: F PAT TYPE: O EXAM TED: [id number] REF PHYS HARINI GILBERT Comparison Studies The findings of this study are compared to the prior ultrasound studydated 09/27/24 Patient Status Outpatient Indication ======== 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 MO BMI 42. H/O seizures. Previous child with cerebralpalsy. Maternal Assessment Zwjpqc333 cm Height (ft)5 ft Height (in)1 in Hsreir394 kg Weight (lb)221 lb BMI42.27 kg/m Method ======= Transabdominal ultrasound examination. View: Suboptimal view: limited byfetal position ========= Cummins . Number of fetuses: 1 Dating ====== Method of dating:based on stated ROHINI GA by prior wvyirdivdt41 w + 0 d ROHINI by prior assessment:01/17/2025 Ultrasound examination on:10/25/2024 GA by U/S based upon:AC, BPD, Femur, HC GA by U/S30 w + 5 d ROHINI by U/S:12/29/2024 Previous dating:based on stated ROHINI, selected on 09/27/2024 Agreed ROHINI of previous datin01/17/2025 Assigned:based on stated ROHINI, selected on 10/25/2024 Assigned GA28 w + 0 d Assigned ROHINI:01/17/2025 pyvqiy046 d Biometry Standard BPD74.8 mm 30w 0d 92% Hadlock VEV536.5 mm 32w 6d >99% Sindy HC280.1 mm 30w 5d 92% Hadlock Cerebellum tr34.6 mm 29w 0d 79% Hill AC278.9 mm 32w 0d >99% Hadlock Femur57.0 mm 29w 6d 86% Hadlock Gwkqzpg15.4 mm 29w 0d 72% Sindy HC / AC1.00 EFW1,686 g 30w 5d >99% Hadlock EFW (lb)3 lb EFW (oz)11 oz EFW by:Hadlock ([id number]-[id number]-FL) Extended Cav. septi pel. tr5.8 mm Vp6.4 mm CM6.6 mm 47% Nicolaides Head / Face / Neck Cephalic index0.74 6% Nicolaides Extremities / Bony Struc FL / BPD0.76 FL / HC0.20 FL / AC0.20 Other Structures BYL317 bpm General Evaluation Cardiac activity present. FHR [...] LVOT view:Normal Heart / Thorax 3-vessel view:Normal 9-naublo-ifbphvn view:normal Cord insertion:Normal Stomach:Appears normal Kidneys:Appears normal [...] x 1 week given size. Coding ======= Description:68330-02 Follow Up Hotel [facility] Room Service Supervisor: RT Lashon Wolf , [facility] Physician: Deven Chinchilla MD, FACOG Electronically signed by: Deven Chinchilla MD, FACOG at: 14:13 us Shameka Chandler MD [facility] US ORDERABLES Final Result from Last 3 Months Insurance [employer] Care Teams Pattern Chain Builder Relationship Specialty Start Date End Date Loan Vick MD [address] [place] [address] PCP - General Family Medicine 08/23/24
--- OUTSIDE RECORDS SUMMARY | 2024-11-14 12:51 | XMS_ITS | Encounter Summary ---
Author Organization [facility] Address [address] [place] [id number] Care Team Providers Care Parts Chaser Name Role Phone Loan Vick MD Primary Care Provider +1- [phone] Encounter Details Date Type Department Care Team [...] EDT Office Visit [facility] MATERNAL MEDICINE [address] [place] [address] [place] [address] 11/28/2024 2:45 PM EDT Appointment [facility] [address] [place] [address] documented as of this encounter Visit Diagnoses Not on filedocumented in this encounter Care Teams Parts Chaser Relationship Specialty Start Date End Date Loan Vick MD [address] [place] [address] PCP - General Family Medicine 08/23/24 documented as of this encounter
--- OUTSIDE RECORDS SUMMARY | 2024-11-14 12:51 | XMS_ITS | Encounter Summary ---
[facility] Address [address] [place] [phone] Care Team Providers Care Lottery Clerk Name Role Phone Loan Vick MD Primary Care Provider +1- [phone] Encounter Details Date Type Department Care Team [...] 2:45 PM EDT Office Visit [facility] MAT[facility] MEDIC[facility] [address] [facility] [place] [address] [place] [address] 11/28/2024 2:45 PM EDT Appointment [facility] [address] [place] [address] documented as of this encounter Visit Diagnoses Not on filedocumented in this encounter Care Teams Lottery Clerk Relationship Specialty Start Date End Date Loan Vick MD [address] [place] [address] PCP - General Family Medicine 08/23/24 documented as of this encounter
--- OUTSIDE RECORDS SUMMARY | 2024-11-14 12:52 | XMS_ITS | Clinical Summary ---
Author Organization [facility] Address [address] [place] [address] Phone Care Team Providers Care Printing Technician Name Role Phone Loan Vick MD Primary Care Provider +1- [phone] Allergies Active Allergy Reactions Criticality Noted Date [...] inhibitors are contraindicated due to desire for tax economist - Discussed with Dr. Deven Chinchilla via phone who reminded that cholesterol is essential in and that high cholesterol for short time typically does not warrant treatment. I do agree but feel that treatment is warranted for her detention health as her cholesterol has been significantly [...] - 09/19/2024 11:59 PM EDT Hospital Encounter [facility] Physical Therapy [address] [place] [address] Raquel Torres, PT Discharge Disposition: Home or Self Care 08/31/2024 12:23 PM EDT - 08/31/2024 11:59 PM EDT Hospital Encounter [address] [place] [address] Raquel Torres, PT Discharge Disposition: Home or Self Care 08/30/2024 Orders Only [facility] Physical [address] [place] [address] Raquel Torres, PT from Last 3 Months [...] (DALK) ; Surgeon: Armando Monreal MD; Location: [facility]; Service: Ophthalmology Medical devices from this surgery are in the Medical Devices section. 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 COLONOSCOPY 08/07/2015 N/A COLONOSCOPY and ESOPHAGOGASTRODUODENOSCOPY with biopsy; Surgeon: Jamey Schwab MD; Location: [facility] ENDOSCOPY; Service: Endoscopy UPPER GASTROINTESTINAL ENDOSCOPY 08/07/2015 N/A Surgeon: Jamey Schwab MD; Location: [facility] ENDOSCOPY; Service: Endoscopy DENTAL SURGERY permanent retainer in mouth CATARACT REMOVAL 11/05/2015 Right RIGHT EYE CATARACT EXTRACTION WITH PHACOEMULSIFICATION AND INTRAOCULAR LENS WITH RIGHT EYE WOUND REVISION ; Surgeon: Armando Monreal MD; Location: [facility]; Service: Ophthalmology Medical devices from this surgery are in the Medical Devices section. EYE SURGERY 11/05/2015 Right Surgeon: Armando Monreal MD; Location: [facility]; Service: Ophthalmology Medical devices from this surgery are in the Medical Devices section. EYE SURGERY 02/24/2016 Right RIGHT EYE YAG LASER CAPSULOTOMY; Surgeon: Armando Monreal MD; Location: [facility]; Service: Ophthalmology DILATION AND CURETTAGE OF UTERUS 09/16/2021 - 10/15/2021 CT NEEDLE BIOPSY LIVER 02/07/2024 CT NEEDLE BIOPSY LIVER 02/07/2024 Eduardo Betancourt MD [facility] CT Medical History Medical History [...] JULIO CESAR Medical Devices Implanted Type Area Alarm Adjuster Device Identifier Shelf Expiration Date Model / Serial / Lot Cornea Tissue - [id number] Implanted:Qty: 1 on 03/27/2014 by Armando Monreal MD at [facility] Right: Eye UNKNOWN 04/01/2014 [id number] / [id number] / Lens Intraocular Preloaded 19.0 Diopter - [id number] Implanted:Qty: 1 on 11/05/2015 by Armando Monreal MD at [facility] Right: Eye LE LAB:SURG 03/17/2018 [id number] / [id number] / Procedures Procedure Name Priority Date/Time Associated Diagnosis Comments SCANNED LABS 11/06/2024 11:04 PM EDT SCANNED LABS 10/24/2024 5:33 PM EDT GC CHLAMYDIA THIN PREP Routine 05/12/2020 11:00 AM EST Well adult exam VIDEO GAME TESTER CYTOLOGY REQUEST (PAP ONLY) Routine 05/12/2020 11:00 AM EST Well adult exam from Last 3 Months or Most Recently Relevant to Health Maintenance Results * SCANNED LABS (11/06/2024 11:04 PM EDT) Only the most recent of2 resultswithin the time period is included. 11/06/2024 11:0 4 PM EDT us Unknown Provider HEMATOLOGY ORDERABLES Final Res ult * VIDEO GAME TESTER CYTOLOGY REQUEST (PAP ONLY) (05/12/2020 11:00 AM EST) CASE REPORT Gynecologic Cytology Report Case: [id number] Authorizing Provider: Loan Vick MD Collected: 05/12/2020 1100 Ordering Location: [facility] Received: 05/12/2020 1100 First Screen: Leesa Jose, CT Specimen: LIQUID-BASED PAP - CERVICAL/ENDOCERV ICAL, Cervix, Endocervical 05/14/2020 10:48 AM EST [facility] PAP FINAL DIAGNOSIS Negative for intraepithelial lesion or malignancy 05/14/2020 10:48 AM [facility] at 1048 EST MICROSCOPIC DESCRIPTION Microscopic examination is performed and the findings corroborate the diagnosis 05/14/2020 10:48 AM EST [facility] PAP SMEAR ADEQUACY Satisfactory for evaluation 05/14/2020 10:48 AM EST [facility] ENDOCERVICAL T-ZONE Transformation zone absent. 05/14/2020 10:48 AM EST [facility] EMBEDDED IMAGES 10:48 AM [facility] PAP DISCLAIMER The Pap Smear is a screening test that aids in the detection of cervical cancer and cancer precursors. Both false positive and false negative results can occur. The test should be used at regular intervals, and positive results should be confirmed before definitive therapy. Processed using the ThinPrep Ticket Broker Automated cytology screening device ([employer]). 05/14/2020 10:48 AM EST [facility] Thin Prep ENDOCERVICAL STRUCTURE / Unknown 05/12/2020 11:00 AM EST 05/12/2020 11:00 AM EST us Loan Vick MD CYTOLOGY ORDERABLES Final Result [facility] [address] [id number] * GC CHLAMYDIA THIN PREP (05/12/2020 11:00 AM EST) Chlamydia trachomatis Not Detected Not Detected 05/13/2020 5:39 PM EST PREFERRED [employer] [facility] Neisseria gonorrhoeae Not Detected Not Detected 05/13/2020 5:39 PM EST [facility] [employer] [facility] Thin Prep SPECIMEN FROM UTERINE CERVIX / Unknown 05/12/2020 11:00 AM EST 05/12/2020 11:00 AM EST Narrative PREFERRED [employer] [facility] - 05/13/2020 5:39 PM EST Testing methodology is receptionist nurse mediated amplification (TMA) using the Aptima Combo 2 assay from [employer]_. A negative result does not completely rule [...] MICROBIOLOGY - GENERAL ORD ERABLES Final Result [facility] [employer] [address] [place] [address] from Last 3 Months or Most Recently Relevant to Health Maintenance Insurance [employer] P[employer] ANTHEM PPO Care Teams Printing Technician Relationship Specialty Start Date End Date Loan Vick MD [address] [place] [address] PCP - General Family Medicine 03/23/16
--- OUTSIDE RECORDS SUMMARY | 2024-11-14 12:52 | XMS_ITS | Encounter Summary ---
Author Organization [place] [address] Care Team Providers Care Division Superintendent Name Role Phone Loan Vick MD Primary Care Provider +1- [phone] Reason for Visit * Reason Comments Medication Refill Encounter Details Date Type Department Care Team (Late st Contact Info) Description 04/21/2018 Refill SEP [facility] [address] [facility] [place] [address] Loan Vick MD [address] [place] [address] Medication Refill Social History Tobacco [...] documented as of this encounter Care Teams Division Superintendent Relationship Specialty Start Date End Date Loan Vick MD [address] [place] [phone] PCP - General Family Medicine 03/23/16 documented as of this encounter
--- OUTSIDE RECORDS SUMMARY | 2024-11-14 12:52 | XMS_ITS | Encounter Summary ---
Author Organization [place] [address] Care Team Providers Care Project Consultant Name Role Phone Loan Vick MD Primary Care Provider +1- [phone] Encounter Details Date Type Department Care Team (Late st Contact Info) Description 08/30/2024 Orders Only [facility] Physical Therapy [facility] [address] [facility] [place] [address] Raquel Torres, PT [address] [place] [address] Social History Tobacco Use Types [...] on filedocumented in this encounter Care Teams Project Consultant Relationship Specialty Start Date End Date Loan Vick MD [address] [place] [address] PCP - General Family Medicine 03/23/16 documented as of this encounter
--- OUTSIDE RECORDS SUMMARY | 2024-11-14 12:52 | XMS_ITS | Encounter Summary ---
Author Organization [place] Address [address] [facility] [place] [address] Care Team Providers Care Award Clerk Name Role Phone Loan Vick MD Primary Care Provider +1- [phone] Encounter Details Date Type Department Care Team (Latest Contact Info) Description 01/25/2017 Lab Requisition [facility] [address] [place] [id number] Claudia Granado, KJ Encounter for screening for [...] Detected Not Detected 01/26/2017 11:41 AM EDT [facility] Neisseria gonorrhoeae Not Detected Not Detected 01/26/2017 11:41 AM EDT [facility] Swab (specimen) 01/25/2017 1 0:19 AM EDT 01/25/2017 5:18 PM EDT Narrative [facility] - 01/26/2017 11:41 AM EDT Testing methodology is veterinary virologist mediated amplification (TMA) using the Aptima Combo 2 assay from [employer]. A negative result does not completely rule [...] validated by [facility] laboratory. This assay is FDA cleared to test the following specimens: clinician-collected endocervical, vaginal and male urethral swab specimens, patient collected vaginal specimens within a clinic setting, Thin Prep Specimens in PreservCyt Solution, and first-stream, unpreserved male urine specimens. Testing on female urine is not FDA approved by this methodology, but has been developed and validated by the [facility] laboratory. Detailed methodology is available upon request. Claudia Granado APRN MICROBIOLOGY - GENERAL ORD ERABLES Final Result [facility] [address] [place] [address] documented in this encounter Visit Diagnoses Diagnosis [...] documented as of this encounter Care Teams Award Clerk Relationship Specialty Start Date End Date Loan Vick MD [address] [place] [address] PCP - General Family Medicine 03/23/16 documented as of this encounter
--- NOTE | 2024-11-14 13:00 | US_ITS ---
PROCEDURE: US OB BIOPHYSICAL PROFILE CLINICAL INDICATION: Needs 11/14/24 COMPARISON: US US OB <= 14 WEEKS FETUS from 06/04/2024 US US OB BIOPHYSICAL PROFILE from 10/29/2024 FINDINGS: Transabdominal sonographic images of the uterus were obtained. From her established due date she is 30weeks 4days. The following parameters are obtained: Viable Fetus in the cephalic presentation with a posterior placenta grade 2. Cervix measures 3.03 cm Measurements: heart Rate = 144bpm Amniotic fluid index: 18.46cm, MVP 5.80 cm Qualitative AFV:2 Breathing movements: 2 Gross Body Movements: 2 Tone: 2 Biophysical profile score: 8 No obvious anomalies evident.Kidneys, profile, bladder, stomach, four-chamber heart, three-vessel cord appear normal. IMPRESSION: 1. Viable fetus in the cephalic presentation with a posterior placenta grade 2. 2. The fluid is within normal limits with an amniotic fluid index 18.46 cm, MVP 5.80 cm. 3. Biophysical profile is 8/8 with good breathing movement and movement seen. 4. Limited anatomical scan appears normal. Dictated by: Driss Rice MD 11/14/2024 15:13 Driss Rice MD in OV 11/14/2024 15:13
== END 2024-11-14 23:59 | disposition home or self-care (01) ==
LOC: RAD 12:48
PROVIDERS: PCP Family Medicine; Visit Provider Obstetrics & Gynecology
DX: O24.419 Gestational diabetes mellitus in pregnancy, unspecified control (principal); O36.63X0 Maternal care for excessive fetal growth, third trimester, not applicable or unspecified; O09.293 Supervision of pregnancy with other poor reproductive or obstetric history, third trimester; Z3A.30 30 weeks gestation of pregnancy
CPT/HCPCS: 76819; 87086

== ENCOUNTER 2024-11-23 10:42 | Outpatient (CLI) | payer BC, SELFPAY ==
--- OUTSIDE RECORDS SUMMARY | 2022-03-09 07:20 | XMS_ITS | Continuity of Care Document ---
Author Organization [facility] Address [address] [place] [address] Phone Care Team Providers Care Net C Developer Name Role Phone Armando Monreal MD Unavailable [...] route every day 500 MG - Active Gabby 0.35 mg tablet take 1 tablet by oral route every day 1.00 tablet - Active Pristiq 100 mg tablet,extended release take 1 tablet by oral route every day 100 MG - Active Saxenda 3 mg/0.5 mL (18 [...] VISIT, EST, Moderate [facility], [address] [place], [address], [place] tel:[phone] [facility] s/p DALK OD (chief complaint) Corneal transplant statusDry eye syndrome of bilateral lacrimal glands 2 [facility]. [address] [place] [address] Road, [address], [place], [place], [address]. tel:[phone] Referring Provider: Yesy Eid, [address], [place], [address]. tel:[phone] [facility], [address] [place], [place], [facility], [place] tel:[phone] [facility] No Information 2 [facility]. [address] [place] [address] Road, [address], [place], [place], [address]. tel:[phone] [facility], [address] [place], [place], [facility], [place] tel:[phone] [facility] No Information 2 [facility]. [address] [place] [address], [address], [place], [place], [address]. tel:[phone] OFFICE/OUTPA TIENT VISIT, EST, Low [facility], [address] [place], [address], [place] tel:[phone] [facility] [place] 4-6 month f/u (chief complaint) Irregular astigmatism, right eyeCorneal transplant statusPresenc e of intraocular lens 1 [facility]. [address] [place] [address], [address], [place], [place], [address]. tel:[phone] Referring Provider: Yesy Eid, [address], [place], [address]. tel:[phone] OFFICE/OUTPA TIENT VISIT, EST, Low [facility], [address] [place], [address], [place] tel:[phone] [facility] [place] blurry vision follow up (chief complaint) Corneal transplant statusVitreou s degeneration of right eyePhotopsia of right eyeHeadache, unspecifiedDr y eye syndrome of bilateral lacrimal glands 1 Radha Landa. [address] [place], [place], [id number], . tel:[phone] Referring Provider: No Ref Doc No Referring Doc. OFFICE/OUTPA TIENT VISIT, EST [facility], [address] [place], [address], [place] tel:[phone] [facility] 4 mo corneal ck (chief complaint) Dry eye syndrome of bilateral lacrimal glandsCorneal transplant rejectionCorn eal transplant statusPresenc e of intraocular lens Oct-3 0-202 0 [facility]. [address] [place] [address], [address], [place], [place], [address]. tel:[phone] Referring Provider: Armando Ervin, [address] [place] [address] [address], [place], [address]. tel:[phone] OFFICE/OUTPA TIENT VISIT, EST [facility], [address] [place], [place], [facility], tel:[phone] [facility] 3-4 mo corneal follow up (chief complaint) Corneal transplant statusDry eye of right sideIrregular astigmatism, right eye Akshat-0 9-202 0 [facility]. [address] [place] [address], [address], [place], [place], [address]. tel:[phone] Referring Provider: Armando Ervin, [address] [place] [address] [address], [place], [address]. tel:[phone] OFFICE/OUTPA TIENT VISIT, EST [facility], [address] [place], [place], [facility], [place] tel:[phone] [facility] 5 mo corneal f/u (chief complaint) Corneal transplant statusPresenc e of intraocular lensDry eye syndrome of bilateral lacrimal glands Oct-0 201 9 [facility]. [address] [place] [address], [address], [place], [place], [address]. tel:[phone] Referring Provider: Armando Ervin, [address] [place] [address] [address], [place], [address]. tel:[phone] OFFICE/OUTPA TIENT VISIT, EST [facility], [address] [place], [address], [place] tel:[phone] [facility] 4 month glaucoma follow up (chief complaint) At low risk for open-angle glaucoma in both eyesCorneal transplant statusPresenc e of intraocular lens 9 Tati Garcia. [address] [place], [place], [id number]. [phone] Referring Provider: Radha Walsh, [address] [place], [address]. [phone] OFFICE/OUTPA TIENT VISIT, EST [facility], [address] [place], [address], [place] tel:[phone] [facility] 4 month cornea follow up (chief complaint) Corneal transplant statusPresenc e of intraocular lensDry eye syndrome of bilateral lacrimal glands 9 Rah Roberts. [address] [place] [address] Road, [address], [place], [place], [address]. tel:[phone] Referring Provider: Armando Ervin, [address] [place] [address] Road [address], [place], [address]. tel:[phone] OFFICE/OUTPA TIENT VISIT, EST [facility], [address] [place], [address], [place] tel:[phone] [facility] 3 month glaucoma follow up (chief complaint) At low risk for open-angle glaucoma in both eyes 9 Juancarmine Naqvissica. [address] [place], [place], [address]. [phone] Referring Provider: No Ref Doc No Referring Doc. OFFICE/OUTPA TIENT VISIT, EST [facility], [address] [place], [address], [place] [phone] [facility] 3 month cornea follow up (chief complaint) Corneal transplant status 9 Rah Roberts. [address] [place] [address] Road, [address], [place], [place], [address]. tel:[phone] Other Provider: Yesy Eid, [address] [place], [address]. tel:[phone] ng Provider: No Ref Doc No Referring Doc. OFFICE/OUTPA TIENT VISIT, EST [facility], [address] [place], [address], [place] tel:[phone] [facility] [place] glaucoma consult per [facility] (chief complaint) At low risk for open-angle glaucoma in both eyesPresence of intraocular lensCorneal transplant status 8 Tati Garcia. [address] [place], [place], [address]. tel:[phone] Referring Provider: No Ref Doc No Referring Doc. OFFICE/OUTPA TIENT VISIT, EST [facility], [address] [place], [address], [place] tel:[phone] [facility] 2 month cornea follow up (chief complaint) Corneal transplant statusDry eye of right sidePseudopha malou Oct-0 8 [facility]. [address] [place] [address], [address], [place], [place], [address]. tel:[phone] Referring Provider: No Ref Doc No Referring Doc. OFFICE/OUTPA TIENT VISIT, EST [facility], [address] [place], [address], [place] tel:[phone] [facility] [place] cornea follow up (chief complaint) Corneal transplant rejectionCorn eal transplant status 8 Rio Dean. [address] [place], [place], [id number]. tel:[phone] Referring Provider: No Ref Doc No Referring Doc. [facility], [address] [place], [address], [place] tel:[phone] [facility] [place] 4-6 wk Cornea ck (chief complaint) Corneal transplant statusCorneal transplant rejectionDry eye syndrome of bilateral lacrimal glandsPseudop hakia 8 [facility]. [address] [place] [address], [address], [place], [place], [address]. tel:[phone] Referring Provider: No Ref Doc No Referring Doc. OFFICE/OUTPA TIENT VISIT, EST [facility], [address] [place], [address], tel:[phone] [facility] [place] cornea follow up (chief complaint) Corneal transplant statusDry eye syndrome of bilateral lacrimal glandsPseudop hakiaCorneal transplant rejection 8 [facility]. [address] [place] [address], [address], [place], [place], [address]. tel:[phone] Referring Provider: No Ref Doc No Referring Doc. OFFICE/OUTPA TIENT VISIT, EST [facility], [address] [place], [place], [facility], tel:[phone] [facility] 3-4 mo Cornea ck (chief complaint) Dry eye of right sideCorneal transplant statusBlurry vision, right eyePseudophak ia 8 [facility]. [address] [place] [address], [place] [address], [place], [place], [address]. tel:[phone] Referring Provider: No Ref Doc No Referring Doc. OFFICE/OUTPA TIENT VISIT, EST [facility], [address] [place], [place], [facility], tel:[phone] [facility] headaches (chief complaint) Corneal transplant statusDry eye of right sidePseudopha kiaPersistent headaches 8 Cristobal Healiq. [address] [place], [place], [id number], [place]. tel:[phone] Referring Provider: No Ref Doc No Referring Doc. OFFICE/OUTPA TIENT VISIT, EST [facility], [address] [place], [address], [place] tel:[phone] [facility] 5 mo cornea fu (chief complaint) Corneal transplant statusDry eye of right sidePseudopha malou 8 [facility]. [address] [place] [address], [address], [place], [place], [address]. tel:[phone] Referring Provider: No Ref Doc No Referring Doc. OFFICE/OUTPA TIENT VISIT, EST [facility], [address] [place], [address], [place] tel:[phone] [facility] 3-4 mo check (chief complaint) Corneal transplant statusPseudop hakia [facility]. [address] [place] [address], [address], [place], [place], [address]. tel:[phone] Referring Provider: Armando Ervin, [address] [place] [address] [address], [place], [address]. tel:[phone] OFFICE/OUTPA TIENT VISIT, EST [facility], [address] [place], [address], [place] tel:[phone] [facility] 3 MO CORNEA FU (chief complaint) Corneal transplant statusDry eye of right side [facility]. [address] [place] [address], [address], [place], [place], [address]. tel:[phone] Referring Provider: Yesy Eid, [address] [place], [address]. tel:[phone] OFFICE/OUTPA TIENT VISIT, EST [facility], [address] [place], [address], [place] tel:[phone] [facility] cornea check (chief complaint) Corneal transplant statusPseudop hakiaDry eye of right side 7 [facility]. [address] [place] [address], [address], [place], [place], [address]. tel:[phone] Referring Provider: Yesy Eid, [address], [place], [address]. tel:[phone] OFFICE/OUTPA TIENT VISIT, EST [facility], [address] [place], [address], [place] tel:[phone] [facility] [place] pain (chief complaint) Corneal transplant statusPhotops ia of right eyeBlurry vision, right eye 7 Jaya Riverat. [address], [address], [place], [address], [place]. tel:[phone] Referring Provider: Yesy Eid, [address], [place], [address]. tel:[phone] [facility], [address] [place], [address], [place] tel:[phone] [facility] [place] Follow Up of 4-6 Yag (chief complaint) Corneal transplant statusPseudop hakiaEncntr for f/u exam aft trtmt for cond oth than malig neoplm 6 No Information Referring Provider: Yesy Eid, [address] [place], [address]. [phone] [facility], [address] [place], [address], [place] tel:[phone] [facility] Encntr for f/u exam aft trtmt for cond oth than malig neoplm 6 No Information Referring Provider: Yesy Eid, [address], [place], [address]. [phone] [facility], [address] [place], [address], [place] tel:[phone] [facility] Other secondary cataract, right eye 6 [facility]. [address] [place] [address], [address], [place], [place], [address]. tel:[phone] Referring Provider: Yesy Eid, [address], [place], [address]. tel:[phone] OFFICE/OUTPA TIENT VISIT, EST [facility], [address] [place], [address], [place] tel:[phone] [facility] Other secondary cataract, right eye 6 [facility]. [address] [place] [address], [address], [place], [place], [address]. tel:[phone] Referring Provider: Yesy Eid, [address] [place], [address]. tel:[phone] [facility] Physician s, [address] [place], [address], [place] tel:[phone] [facility] Encntr for f/u exam aft trtmt for cond oth than malig neoplm 6 Rio Dean. [address] [place], [place], [address]. tel:[phone] Referring Provider: Yesy Eid, [address] [place], [address]. tel:[phone] [facility] Physician s, [address] [place], [address], [place] tel:[phone] [facility] Presence of intraocular lens 6 No Information Referring Provider: Yesy Eid, [address] [place], [address]. tel:[phone] [facility] Physician s, [address] [place], [address], [place] tel:[phone] [facility] Other age-related cataractAge-r elated nuclear cataract, right eyeIrregular astigmatism, right eye [facility]. [address] [place] [address], [address], [place], [place], [address]. tel:[phone] Referring Provider: Yesy Eid, [address] [place], [address]. tel:[phone] OFFICE/OUTPA TIENT VISIT, EST [facility], [address] [place], [address], [place] tel:[phone] [facility] cataract evaluation (chief complaint) Corneal transplant statusPosteri or subcapsular polar age-related cataract, right eye [facility]. [address] [place] [address], [address], [place], [place], [address]. tel:[phone] Referring Provider: Yesy Eid, [address], [place], [address]. tel:[phone] OFFICE/OUTPA TIENT VISIT, EST [facility], [address] [place], [address], [place] tel:[phone] [facility] pain OD (chief complaint) Corneal transplant statusPosteri or subcapsular polar age-related cataract, right eye Apr-2 6 [facility]. [address] [place] [address], [address], [place], [place], [address]. tel:[phone] Referring Provider: Yesy Eid, [address], [place], [address]. tel:[phone] OFFICE/OUTPA TIENT VISIT, EST [facility], [address] [place], [address], [place] tel:[phone] [facility] cornea follow up (chief complaint) Corneal transplant statusRegular astigmatism, right eye Apr-1 6 [facility]. [address] [place] [address], [address], [place], [place], [address]. tel:[phone] Referring Provider: Yesy Eid, [address], [place], [address]. tel:[phone] OFFICE/OUTPA TIENT VISIT, EST [facility], [address] [place], [address], [place] tel:[phone] [facility] 2 WEEK FU DALK OD (chief complaint) Corneal transplant statusPosteri or subcapsular polar age-related cataract, right eye Mar-0 6 [facility]. [address] [place] [address], [address], [place], [place], [address]. tel:[phone] Referring Provider: Yesy Eid, [address], [place], [address]. tel:[phone] OFFICE/OUTPA TIENT VISIT, EST [facility], [address] [place], [address], [place] tel:[phone] [facility] redness (chief complaint) Corneal transplant status 6 No Information Referring Provider: Yesy Eid, [address] [place], [address]. tel:[phone] OFFICE/OUTPA TIENT VISIT, EST [facility], [address] [place], [address], [place] tel:[phone] [facility] Urgent (chief complaint) Corneal transplant status 6 Riooscar Dean. [address] [place], [place], [address]. tel:[phone] Referring Provider: Yesy Eid, [address] [place], [address]. tel:[phone] OFFICE/OUTPA TIENT VISIT, EST [facility], [address] [place], [address], [place] tel:[phone] [facility] Urgent possible loose stitch od (chief complaint) Corneal transplant status No Information Referring Provider: Yesy Eid, [address] [place], [address]. tel:[phone] OFFICE/OUTPA TIENT VISIT, EST [facility], [address] [place], [address], [place] tel:[phone] [facility] 1 mo check (chief complaint) Corneal transplant statusPosteri or subcapsular polar age-related cataract, right eye 5 Rio Dean. [address] [place], [place], [address]. tel:[phone] Referring Provider: Yesy Eid, [address] [place], [address]. tel:[phone] OFFICE/OUTPA TIENT VISIT, EST [facility], [address] [place], [address], [place] tel:[phone] [facility] Urgent possible loose suture (chief complaint) Corneal transplant status Oct-0 5-201 5 Rio Dean. [address] [place], [place], [address]. tel:[phone] Referring Provider: Yesy Eid, [address] [place], [address]. tel:[phone] OFFICE/OUTPA TIENT VISIT, EST [facility], [address] [place], [address], [place] tel:[phone] [facility] urgent- pain, possible suture broken (chief complaint) No Information Sep-0 8- 5 Rio Dean. [address] [place], [place], [address]. tel:[phone] Referring Provider: Yesy Eid, [address] [place], [address]. tel:[phone] OFFICE/OUTPA TIENT VISIT, EST [facility], [address] [place], [facility], [place] tel:[phone] [facility] cornea follow up (chief complaint) No Information 5 [facility]. [address], [address], [place], [place], [address]. tel:[phone] Referring Provider: Yesy Eid, [address] [place], [address]. tel:[phone] OFFICE/OUTPA TIENT VISIT, EST [facility], [address] [place], [address], [place] tel:[phone] [facility] Cornea Follow Up (chief complaint) No Information 0 5 [facility]. [address], [address], [place], [place], [address]. tel:[phone] Referring Provider: Yesy Eid, [address], [place], [address]. tel:[phone] OFFICE/OUTPA TIENT VISIT, EST [facility], [address] [place], [address], [place] tel:[phone] [facility] cornea follow up (chief complaint) No Information 5 [facility]. [address] [place] [address] Road, [address], [place], [place], [address]. tel:[phone] Referring Provider: Yesy Eid, [address] [place], [address]. tel:[phone] OFFICE/OUTPA TIENT VISIT, EST [facility], [address] [place], [address], tel:[phone] [facility] [place] [facility] urgent pain od x 2 days (chief complaint) No Information 5 No Information Referring Provider: Yesy Eid, [address] [place], [address]. tel:[phone] OFFICE/OUTPA TIENT VISIT, EST [facility], [address] [place], [address], tel:[phone] [facility] 2 mo fu s/p dalk od 03/27/14 (chief complaint) No Information Sep- 5 [facility]. [address] [place] [address], [address], [place], [place], [address]. tel:[phone] Referring Provider: Yesy Eid, [address] [place], [address]. tel:[phone] OFFICE/OUTPA TIENT VISIT, EST [facility], [address] [place], [address], [place] tel:[phone] [facility] [place] cornea follow up (chief complaint) No Information 3 0- 5 [facility]. [address], [address], [place], [place], [address]. tel:[phone] Referring Provider: Yesy Eid, [address] [place], [address]. tel:[phone] [facility], [address] [place], [address], [place] tel:[phone] [facility] [place] [facility] No Information 5 [facility]. [address], [address], [place], [place], [address]. tel:[phone] Referring Provider: Yesy Eid, [address], [place], [address]. tel:[phone] [facility], [address] [place], [address], [place] tel:[phone] [facility] No Information 5 No Information Referring Provider: Yesy Eid, [address], [place], [address]. tel:[phone] [facility], [address] [place], [address], [place] tel:[phone] [facility] [place] No Information 5 [facility]. [address], [address], [place], [place], [address]. tel:[phone] Referring Provider: Yesy Eid, [address], [place], [address]. tel:[phone] [facility], [address] [place], [address], [place] tel:[phone] [facility] No Information 5 [facility]. [address], [address], [place], [place], [address]. tel:[phone] Referring Provider: Yesy Eid, [address], [place], [address]. tel:[phone] [facility], [address] [place], [address], [place] tel:[phone] [facility] No Information 5 Rio Dean. [address] [place], [place], [id number]. tel:[phone] Referring Provider: Yesy Eid, [address], [place], [address]. tel:[phone] [facility], [address] [place], [address], [place] tel:[phone] [facility] vision is improved OD (chief complaint)+ Dryness after gtts OD (chief complaint)D ur- QID ,rest-BID, Comb-QD-OD OD (chief complaint) No Information 5 Rio Dean. [address] [place], [place], [id number]. tel:[phone] Referring Provider: Yesy Eid, [address] [place], [address]. tel:[phone] [facility], [address] [place], [address], [place] tel:[phone] [facility] No Information Mar- 4 [facility]. [address] [place] [address], [address], [place], [place], [address]. tel:[phone] Referring Provider: Yesy Eid, [address] [place], [address]. tel:[phone] [facility], [address] [place], [address], [place] tel:[phone] ABELARDO Aviles Pt doing okay pain 2 on a 1-10 scale OD (chief complaint)D ur-QID, rest-BID, ltx-QHS-OD OD (chief complaint) No Information 4 [facility]. [address] [place] [address], [address], [place], [place], [address]. tel:[phone] Referring Provider: Yesy Eid, [address] [place], [address]. tel:[phone] [facility], [address] [place], [address], [place] tel:[phone] ABELARDO Aviles No Information Mar-2 3 4 [facility]. [address] [place] [address], [address], [place], [place], [address]. tel:[phone] Referring Provider: Yesy Eid, [address] [place], [address]. tel:[phone] [facility], [address] [place], [address], [place] tel:[phone] [facility] [place] No Information 4 [facility]. [address] [place], [place], [id number], [place]. tel:[phone] Referring Provider: Armando Ervin, [address] [place] [address] [address], [place], [address]. tel:[phone] [facility], [address] [place], [address], [place] tel:[phone] [facility] No Information 4 Surjit Oliveira. [address] [place], [place], [id number], [place]. tel:[phone] Referring Provider: Yesy Eid, [address] [place], [address]. tel:[phone] [facility], [address] [place], [address], [place] tel:[phone] [facility] no complaints OD (chief complaint)d ur qid, ltx osmin qhs, rest bid, levo bid OD (chief complaint) No Information 4 Rah Roberts. [address] [place] [address], [address], [place], [place], [address]. tel:[phone] Referring Provider: Yesy Eid, [address] [place], [address]. tel:[phone] [facility], [address] [place], [address], [place] tel:[phone] [facility] No Information 4 Rah Roberts. [address] [place] [address], [address], [place], [place], [address]. tel:[phone] Referring Provider: Yesy Eid, [address] [place], [address]. tel:[phone] [facility], [address] [facility] [place], [address], [place] tel:[phone] [facility] No Information 0- 4 [facility]. [address], [address], [place], [place], [address]. tel:[phone] Referring Provider: Yesy Eid, [address] [place], [address]. tel:[phone] [facility], [address] [employer] [place], [address], [place] tel:[phone] [facility] No Information Mar- 0- 4 Surjit Oliveira. [address] [place], [place], [id number], [place]. tel:[phone] Referring Provider: Yesy Eid, [address] [place], [address]. tel:[phone] OFFICE/OUTPA TIENT VISIT, EST CVP Physician s, [address] [employer] [place], [address], [place] tel:[phone] [facility] [address] pain (chief complaint) No Information Dec-0 3 4 No Information Referring Provider: Yesy Eid, [address] [place], [address]. tel:[phone] OFFICE/OUTPA TIENT VISIT, EST CVP Physician s, [address] [employer] [place], [address], [place] tel:[phone] [facility] [address] cornea follow up (chief complaint) No Information Dec-2 4 [facility]. [address] [place] [address], [address], [place], [place], [id number]. tel:[phone] Referring Provider: Yesy Eid, [address] [place], [address]. tel:[phone] OFFICE/OUTPA TIENT VISIT, EST CVP Physician s, [address] [employer] [place], [address], [place] tel:[phone] [facility] [address] Contact lens evaluation (chief complaint) No Information 4 [facility]. [address] [place], [place], [id number]. tel:[phone] Referring Provider: Yesy Eid, [address], [place], [address]. tel:[phone] OFFICE/OUTPA TIENT VISIT, EST CVP Physician s, [address] [place], [address], tel:[phone] [facility] cornea follow up (chief complaint) No Information 4 [facility]. [address] [place] [address], [address], [place], [place], [id number]. tel:[phone] Referring Provider: Yesy Eid, [address], [place], [address]. tel:[phone] OFFICE/OUTPA TIENT VISIT, EST CVP Physician s, [address] [place], [place], [facility], tel:[phone] [facility] cornea follow up (chief complaint) No Information 4 [facility]. [address] [place] [address], [address], [place], [place], [id number]. tel:[phone] Referring Provider: Yesy Eid, [address] [place], [address]. tel:[phone] OFFICE/OUTPA TIENT VISIT, EST CVP Physician s, [address] [place], [address], [place] tel:[phone] [facility] cornea follow up (chief complaint) No Information 4 [facility]. [address] [place] [address], [address], [place], [place], [id number]. tel:[phone] Referring Provider: Yesy Eid, [address] [place], [address]. tel:[phone] OFFICE/OUTPA TIENT VISIT, EST CVP Physician s, [address] [place], [address], tel:[phone] [facility] No Information 4 [facility]. [address] [place] [address] Road, [address], [place], [place], [id number]. tel:[phone] Referring Provider: Yesy Eid, [address], [place], [address]. tel:[phone] OFFICE/OUTPA TIENT VISIT, EST CVP Physician s, [address] [place], [address], [place] tel: [phone] [facility] No Information 3 [facility]. [address] [place] [address] Road, [address], [place], [place], [id number]. tel:[phone] Referring Provider: Yesy Eid, [address] [place], [address]. tel:[phone] OFFICE/OUTPA TIENT VISIT, EST CVP Physician s, [address] [place], [address], [place] tel:[phone] [facility] No Information 3 [facility]. [address] [place] [address] Road, [address], [place], [place], [address]. tel:[phone] Referring Provider: Yesy Eid, [address] [place], [address]. tel:[phone] OFFICE/OUTPA TIENT VISIT, EST CVP Physician s, [address] [place], [address], [place] tel: [phone] [facility] No Information 3 [facility]. [address] [place] [address] Road, [address], [place], [place], [id number]. tel:[phone] Referring Provider: Yesy Eid, [address] [place], [address]. tel:[phone] OFFICE/OUTPA TIENT VISIT, EST CVP Physician s, [address] [place], [address], [place] tel: [phone] [facility] No Information 3 [facility]. [address] [place] [address], [address], [place], [place], [id number]. tel:[phone] Referring Provider: Yesy Eid, [address] [place], [address]. tel:[phone] OFFICE/OUTPA TIENT VISIT, EST CVP Physician s, [address] [place], [address], [place] tel:[phone] [facility] No Information 3 [facility]. [address] [place] [address], [address], [place], [place], [id number]. tel:[phone] Referring Provider: Yesy Eid, [address] [place], [address]. tel:[phone] OFFICE/OUTPA TIENT VISIT, EST CVP Physician s, [address] [place], [address], [place] tel:[phone] [facility] No Information 3 [facility]. [address] [place] [address], [address], [place], [place], [id number]. tel:[phone] Referring Provider: Yesy Eid, [address] [place], [address]. tel:[phone] OFFICE/OUTPA TIENT VISIT, EST CVP Physician s, [address] [place], [address], [place] tel:[phone] [facility] No Information 3 [facility]. [address] [place] [address], [address], [place], [place], [id number]. tel:[phone] Referring Provider: Yesy Eid, [address] [place], [address]. tel:[phone] OFFICE/OUTPA TIENT VISIT, EST CVP Physician s, [address] [place], [address], [place] tel:[phone] [facility] No Information 2 [facility]. [address] [place], [place], [id number]. tel:[phone] Referring Provider: Yesy Eid, [address], [place], [address]. tel:[phone] OFFICE/OUTPA TIENT VISIT, EST CVP Physician s, [address] [place], [address], [place] tel:[phone] [facility] [address] No Information 2 [facility]. [address] [place] [address] Road, [address], [place], [place], [address]. tel:[phone] Referring Provider: Yesy Eid, [address] [place], [address]. tel:[phone] [facility]P Physician s, [address] [place], [address], [place] tel:[phone] [facility] [address] No Information 2 [facility]. [address] [place] [address] Road, [address], [place], [place], [address]. [phone] OFFICE/OUTPA TIENT VISIT, EST CVP Physician s, [address] [place], [address], [place] tel:[phone] [facility] [address] No Information 2 [facility]. [address] [place] [address] Road, [address], [place], [place], [address]. tel:[phone] Referring Provider: Yesy Eid, [address] [place], [address]. tel:[phone] OFFICE/OUTPA TIENT VISIT, EST CVP Physician s, [address] [place], [address], [place] tel:[phone] [facility] [address] No Information 2 [facility]. [address] [place] [address] Road, [address], [place], [place], [address]. tel:[phone] Referring Provider: Yesy Eid, [address], [place], [address]. tel:[phone] OFFICE/OUTPA TIENT VISIT, EST CVP Physician s, [address] [place], [address], [place] tel:[phone] [facility] No Information 1 [facility]. [address] [place] [address], [address], [place], [place], [address]. tel:[phone] Referring Provider: Yesy Eid, [address], [place], [address]. tel:[phone] OFFICE/OUTPA TIENT VISIT, EST CVP Physician s, [address] [place], [address], [place] tel:[phone] [facility] No Information 1 [facility]. [address] [place] [address], [address], [place], [place], [id number]. tel:[phone] Referring Provider: Yesy Eid, [address], [place], [address]. tel:[phone] OFFICE/OUTPA TIENT VISIT, EST CVP Physician s, [address] [place], [address], [place] tel:[phone] [facility] No Information 1 [facility]. [address] [place] [address], [address], [place], [place], [id number]. tel:[phone] Referring Provider: Yesy Eid, [address], [place], [address]. tel:[phone] OFFICE/OUTPA TIENT VISIT, EST CVP Physician s, [address] [place], [address], [place] tel:[phone] [facility] No Information 1 [facility]. [address] [place] [address], [address], [place], [place], [id number]. tel:[phone] Referring Provider: Yesy Eid, [address], [place], [address]. tel:[phone] OFFICE/OUTPA TIENT VISIT, EST CVP Physician s, [address] [place], [address], tel:[phone] [facility] No Information 1 [facility]. [address] [place] [address], [address], [place], [place], [address]. tel:[phone] Referring Provider: Yesy Eid, [address] [place], [address]. tel:[phone] OFFICE/OUTPA TIENT VISIT, EST CVP Physician s, [address] [place], [address], tel:[phone] [facility] No Information 0 1 [facility]. [address] [place] [address], [address], [place], [place], [address]. tel:[phone] Referring Provider: Yesy Eid, [address] [place], [address]. tel:[phone] OFFICE/OUTPA TIENT VISIT, EST CVP Physician s, [address] [place], [address], tel:[phone] [facility] No Information 0 [facility]. [address] [place] [address], [address], [place], [place], [id number]. tel:[phone] Referring Provider: Armando Ervin, [address] [place] [address] [address], [place], [address]. tel:[phone] OFFICE/OUTPA TIENT VISIT, EST CVP Physician s, [address] [place], [address], tel:[phone] [facility] No Information 0 0 [facility]. [address] [place] [address], [address], [place], [place], [id number]. tel:[phone] Family History Family Member Type Diagnosis Age [...] Provider Payers Payer name Insurance type Covered republican ID Christos gary(anya) [facility] - [id number] CI [id number] Social History Type Description Quantity Date Captured [...] it will need to be sent through Pulsity Meds:pred 3/0xiidra 2/0 Reason For Referral Reason [...] it will need to be sent through Puls[facility] Meds:pred 3/0xiidra 2/0 4-6 month f/u Pt [...] checked locally for possible retina issues and [facility] local md assured her everything was [...] Valtrex 500 mg Qd, AT 6-8, & [place] 3's. 3 month glaucoma follow up The [...] has occasional dryness OD. glaucoma consult per [facility] The 17 year old female presents for evaluation of glaucoma consult per [facility] in the right and left eyes. States [...] Cornea ck The 16 [facility] presents for evaluation of [...] Pt's mom states that pt was in [place] last week and had a sudden va decrease and saw a Lubricator Granulator in [place] and they were supposed to send their notes to [facility]. I looked through pt's chart and was [...] 6-8x daily OD-RTC when pt home from [facility] for fall break or prn (pt will call to schedule, ok to see [facility]/ERS/orEJR for next visit) Related to See impression details - Return - 4-6 week with Armando Monreal MD Related to See impression details - Decrease [...] May Related to See impression details - - Excellent potent ial VA with RGP over-refraction- Reassess with EJ in 6-8 weeks, discuss RGP wear (difficult per patient) vs unlikely LVC- Repeat MR/MARILYNN at next visit Related to See impression details - Return - 6-8 week( s) with Armando Monreal MD for follow up exam. Related to See impression details - -RTC [...] Related to P O PCIOL/Wound Revision - - Cataracts accoun t for the patient's complaints. Discussed risks, benefits, procedures and recovery. Patient desires to have surgery, recommend phacoemulsification with intraocular lens. Phaco with wound revision OD Related to See impression details - Return - schedule procedure Re lated to See impression details - Return - [...] details - Return - 5 week(s) with Armadno Monreal MD for Related to See impression [...] visit Related to See impression details - 1. Increase Lotema x to QID OD2. Follow-up 1 week to reasess with BMG3. F/U as scheduled with [facility] (include MR/MARILYNN at next [facility] visit as planned) Related to See impression details - Return - 1 week wi th Orestes Pepper, OD for follow up exam. Related to See impression details - . CPM, increase t ears today2. RTC with [facility] as sched Related to See impression details - -Continue current hhiu-Lajugy-xr with [facility] as scheduled 0MR/MARILYNN next visit as before) Related to See impression details - Return - keep current appointm ent Related to See impression details - . CPM2. RTC 2 mo' s with [facility] or prn-marilynn, mr, iop, ejh Related to See impression details - Return - 2 months Related to S ee impression details - add antibiotic x 3 days, cont other meds, rtc 1mo Related to See impression details - 1. add vig tid x 3 days2. rtc with [facility] as sched or prn Related to [...] to See impression details - 2 months [facility] with Marilynn Related to See impression details - cont restasis bidd ecrease Durezol to QDacyclovir 400 mg PO BIDtopo next visit and consider suture removal Related to See impression details - Return in 4-6 weeks. Related t o DALK - -Consulted with MARIAN - [facility] recommends cyclo-RTC as scheduled with [facility] Related to DALK - -RTC 6-8 [...] . Proceed with BILLIE RICHARDSON as scheduled2. [place] AT use Related to See impression details - Return in as scheduled Related to See impression details - . Schedule DALK O D - Discussed risks, benefits, procedures and recovery. Patient desires to have surgery. Related to See impression details - [facility] to determine next step, waiting to hear back Related to See impression and plan - return to ers for hard contact and marilynn od, per [facility] Related to See impression and plan - Return with ERS fo r marilynn and hard contact lens fit for the right eye. Explained in details for the vision disconnect. Related to See impression and plan - RETURN IN ONE MTH WITH [facility] Rel ated to See impression details - 1.Patient here tod ay for decreased vision in the right eye. Discussed with patient and family the need for a corneal transplant, along with risks and benefits. Will re-assess for surgery at next visit, to consider DALK.2. Decrease the Durezol to TID OD. scribed by patria Related to See impression details - RETURN WITH [facility] IN 2-3 WEEKS [place] [...] plan - RETURN IN 3 MONTHS WITH [facility] Re lated to See impression: general [...] - RETURN IN 3-4 WEEK S WITH [facility]-CAT EVAL OD Related to POST SUBCAP [...] CATAR - RETURN IN 5-6 WEEKS WITH [facility] R chiloated to See impression: general [...] ZOSTER KERATOCONJUNCT - RETURN NEXT TUESDAY WITH [facility] [place] Related to See impression: [...] plan - RETURN IN ONE WEEK WITH [facility] Re lated to H SIMPLEX KERATITIS ISK OD -INCREASED IN FLAMMATION ODINCREASED STROMAL HAZE OD - 1. INCREASE PRED TO EVERY TWO HOURS WHILE AWAKE FOR 4 DAYS THEN 6 TIMES A DAY FOR ONE WEEK. FOLLOW UP IN ONE WEEK.2. Educational materials provided:Primary Diagnosis. Related to H SIMPLEX KERATITIS - return with [facility] Related to See impression: general plan [...]
--- OUTSIDE RECORDS SUMMARY | 2024-09-27 14:40 | XMS_ITS | Encounter Summary ---
[facility] Address [address] [place] [address] Care Team Providers Care Telecom Sales Consultant Name Role Phone Loan Vick MD Primary Care Provider +1- [phone] Reason for Referral * Diagnostic Imaging (Routine) - Closed Specialty Diagnoses / Procedures Referred By Contac t Referred To Contact Radiology Diagnoses History of IUFD Procedures [facility] [place] Shameka Chandler MD [address] [place] [address] Phone: tel: fax: Referral ID Status Reason Start Date Expiration Date Visits Re quested Visits Authorized [id number] Closed 08/25/2024 11/24/2025 1 1 Reason for Visit * Diagnostic Imaging (Routine) - Closed Specialty Diagnoses / Procedures Referred By Contjose messina Referred To Contact Radiology Diagnoses History of IUFD Procedures [facility] [place] Shameka Chandler MD [address] [address] Phone: tel: fax: Referral ID Status Reason Start Date Expiration Date Visits Re quested Visits Authorized [id number] Closed 08/25/2024 11/24/2025 1 1 Encounter Details Date Type Department Care Team (Late Contact Info) Description 09/27/2024 2:40 PM EDT - 09/27/2024 11:59 PM EDT Hospital [facility] [address] [place] [address] Shameka Chandler MD [address] [place] [id number] History of IUFD Discharge Disposition: Home or Self Care Social History Tobacco Use Types Packs/Day Years Used Date Smoking Tobacco: Never Smokeless Tobacco: Never Alcohol Use Standard Drinks/Week Comments Not Currently 0 (1 standard drink = 0.6 oz pur e alcohol) Estimated Date of Delivery Comme nts Yes 01/17/2025 Date entered stacy or to episode creation Sex and Gender Information Value Date Recorded Sex Assigned at Not on file Legal Sex Female 6:01 PM EST Gender Identity Not on file Sexual Orientation Not on file documented as of this encounter Medications at Time of Discharge BABY ASPIRIN PO Take 1 tablet by mouth Daily. desvenlafaxine (PRISTIQ) 50 MG 24 hr tablet Take 2 tablets by mouth Daily. 09/06/2023 famotidine (PEPCID) 20 MG tablet Take 1-2 tablets by mouth 2 (Two) Times a Day As Needed for Heartburn. hydrOXYzine (ATARAX) 25 MG tablet Take 1 tablet by mouth 3 (Three) Times a Day As Needed. 09/13/2023 Vit-Fe Fumarate-FA ( vitamin 27-0.8) 27-0.8 MG tablet tablet Take 1 tablet by mouth Daily. documented as of this encounter Plan of Treatment Upcoming Encounters Date Type Department Care Team (Late Contact Info) Description 11/28/2024 2:45 PM EDT Office Visit [facility] [address] [address] 11/28/2024 2:45 PM EDT Appointment [facility] [address] [place] [address] documented as of this encounter Procedures Procedure Name Priority Date/Time Associated Diagnosis Comments [facility] Routine 09/27/2024 3:24 PM EDT History of IUFD documented in this encounter Results * [facility] (09/27/2024 3:24 PM EDT) Anatomical Region Laterality Modality Ultrasound 09/27/2024 2:59 PM EDT Narrative 10/02/2024 7:19 PM EDT PAT NAME: SANDEEP BRITO MED REC#: [id number] DA: 2000 PAT GEND: F PAT TYPE: O EXAM TED: [id number] REF PHYS HARINI MONTEZ Comparison Studies The findings of this study are compared to the prior ultrasound study dated 08/23/24 Patient Status Outpatient Indication ======== 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 MO BMI 42. H/O seizures. Previous child with cerebral palsy. Maternal Assessment Height 154 cm Height (ft) 5 ft Height (in) 1 in Weight 99 kg Weight (lb) 219 lb BMI 41.89 kg/m Method ======= Transabdominal ultrasound examination. View: Good view ========= Cummins . Number of fetuses: 1 Dating ====== Method of dating: based on stated ROHINI GA by prior assessment 24 w + 0 d ROHINI by prior assessment: 01/17/2025 Ultrasound examination on: 09/27/2024 GA by U/S based upon: AC, BPD, Femur, HC GA by U/S 25 w + 0 d ROHINI by U/S: 01/10/2025 Previous dating: based on stated ROHINI, selected on 08/23/2024 Agreed ROHINI of previous datin01/17/2025 Assigned: based on stated ROHINI, selected on 09/27/2024 Assigned GA 24 w + 0 d Assigned ROHINI: 01/17/2025 length 280 d Biometry Standard BPD 62.4 mm 25w 2d 86% Hadlock OFD 81.3 mm 26w 3d 99% Sindy HC 229.5 mm 25w 0d 70% Hadlock Cerebellum tr 28.9 mm 25w 2d 93% Hill AC 207.7 mm 25w 2d 81% Hadlock Femur 43.4 mm 24w 2d 45% Hadlock Humerus 40.4 mm 24w 4d 57% Sindy HC / AC 1.10 EFW 747 g 24w 5d 81% Hadlock EFW (lb) 1 lb EFW (oz) 10 oz EFW by: Hadlock ([id number]) Extended Foot 44.5 mm 51% Chitty Cav. septi pel. tr 5.3 mm Pricer 4.6 mm CM 6.9 mm 77% Nicolaides Nasal bone 6.8 mm Head / Face / Neck Cephalic index 0.77 30% Nicolaides Extremities / Bony Struc FL / BPD 0.70 FL / HC 0.19 FL / AC 0.21 Other Structures FHR 148 bpm General Evaluation Cardiac activity present. FHR 148 bpm. movements present. Presentation cephalic. Placenta Placental site: posterior. Umbilical cord Cord vessels: 3 vessel cord. Amniotic fluid Amount of AF: normal. MVP 5.0 cm. KALEIGH 17.1 cm. Q1 3.7 cm, Q2 4.2 cm, Q3 5.0 cm, Q4 4.3 cm. Anatomy Cranium: Normal Cavum septi pellucidi: Normal Cerebellum: Normal Cisterna magna: Normal Head / Neck Rt lateral ventricle: Normal Lt lateral ventricle: Normal Lips: Appear normal Profile: Appears normal Nose: Appears normal 4-chamber view: Appears normal RVOT view: Appears normal LVOT view: Appears normal Heart / Thorax Aortic arch view: Appears normal SVC: Appears Normal IVC: Appears Normal 3-vessel view: Appears normal 0-pyeapc-kibxnpu view: Appears normal Cord insertion: Normal Stomach: Appears normal Kidneys: Appears normal Bladder: Appears normal Gender: female Wants to know gender: yes Maternal Structures Uterus / Cervix Cervix: Visualized Approach: Transabdominal Cervical length 49.7 mm Doppler Arterial Umbilical A PI 1.16 57% Maite Umbilical A RI 0.71 50% Maite Umbilical A PS 36.54 cm/s 29% Ebbing Umbilical A ED 10.46 cm/s Umbilical A TAmax 22.49 cm/s 27% Ebbing Umbilical A MD 9.95 cm/s Umbilical A S / D 3.49 50% Maite Umbilical A HR 144 bpm Impression Today's exam reveals a SIUP in cephalic presentation with biometry consistent with dates. Limited anatomic survey appears normal. The AKLEIGH is normal. Recommendation Follow up 4 weeks Coding ======= Description: 90146-13 Follow Up Outdoor Landscape Architect: RT Lashon Wolf , [facility] Physician: Shameka Chandler MD, FACOG Electronically signed by: Shameka Chandler MD, FACOG at: 19:19 Procedure Note Shameka Chandler MD - 10/02/2024 PAT NAME: SANDEEP BRITO MED REC#: [id number] DA: [id number] PAT GEND: F PAT TYPE: O EXAM TED: [id number] REF PHYS HARINI MONTEZ Comparison Studies The findings of this study are compared to the prior ultrasound studydated 08/23/24 Patient Status Outpatient Indication ======== 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 MO BMI 42. H/O seizures. Previous child with cerebralpalsy. Maternal Assessment Iopudw698 cm Height (ft)5 ft Height (in)1 in Stfopj63 kg Weight (lb)219 lb BMI41.89 kg/m Method ======= Transabdominal ultrasound examination. View: Good view ========= Cummins . Number of fetuses: 1 Dating ====== Method of dating:based on stated ROHINI GA by prior [id number] w + 0 d ROHINI by prior assessment:01/17/2025 Ultrasound examination on:09/27/2024 GA by U/S based upon:AC, BPD, Femur, HC GA by U/S25 w + 0 d ROHINI by U/S:01/10/2025 Previous dating:based on stated ROHINI, selected on 08/23/2024 Agreed ROHINI of previous datin01/17/2025 Assigned:based on stated ROHINI, selected on 09/27/2024 Assigned GA24 w + 0 d Assigned ROHINI:01/17/2025 d Biometry Standard BPD62.4 mm 25w 2d 86% Hadlock OFD81.3 mm 26w 3d 99% Sindy HC229.5 mm 25w 0d 70% Hadlock Cerebellum tr28.9 mm 25w 2d 93% Hill AC207.7 mm 25w 2d 81% Hadlock Femur43.4 mm 24w 2d 45% Hadlock Cbxeyfh64.4 mm 24w 4d 57% Sindy HC / AC1.10 WEB145 g 24w 5d 81% Hadlock EFW (lb)1 lb EFW (oz)10 oz EFW by:Hadlock (TGI-[id number]-CR-FL) Extended Foot44.5 mm 51% Chitty Cav. septi pel. tr5.3 mm Vp4.6 mm CM6.9 mm 77% Nicolaides Nasal bone6.8 mm Head / Face / Neck Cephalic index0.77 30% Nicolaides Extremities / Bony Struc FL / BPD0.70 FL / HC0.19 FL / AC0.21 Other Structures TMW218 bpm General Evaluation Cardiac activity present. FHR 148 bpm. movements present. Presentation cephalic. Placenta Placental site: posterior. Umbilical cord Cord vessels: 3 vessel cord. Amniotic fluid Amount of AF: normal. MVP 5.0 cm. KALEIGH 17.1 cm. Q1 3.7 cm,Q2 4.2 cm, Q3 5.0 cm, Q4 4.3 cm. Anatomy Cranium:Normal Cavum septi pellucidi:Normal Cerebellum:Normal Cisterna magna:Normal Head / Neck Rt lateral ventricle:Normal Lt lateral ventricle:Normal Lips:Appear normal Profile:Appears normal Nose:Appears normal 4-chamber view:Appears normal RVOT view:Appears normal LVOT view:Appears normal Heart / Thorax Aortic arch view:Appears normal SVC:Appears Normal IVC:Appears Normal 3-vessel view:Appears normal 2-qafexs-pzdujiy view:Appears normal Cord insertion:Normal Stomach:Appears normal Kidneys:Appears normal Bladder:Appears normal Gender:female Wants to know gender:yes Maternal Structures Uterus / Cervix Cervix:Visualized Approach:Transabdominal Cervical .7 mm Doppler Arterial Umbilical A PI1.16 57% Maite Umbilical A RI0.71 50% Maite Umbilical A PS36.54 cm/s 29% Ebbing Umbilical A ED10.46 cm/s Umbilical A TAmax22.49 cm/s 27% Ebbing Umbilical A MD9.95 cm/s Umbilical A S / D3.49 50% Maite Umbilical A HR144 bpm Impression Today's exam reveals a SIUP in cephalic presentation with biometryconsistent with dates. Limited anatomic survey appears normal. TheAFI is normal. Recommendation Follow up 4 weeks Coding ======= Description:[id number] Follow Up Outdoor Landscape Architect: RT Lashon Wolf , [facility] Physician: Shameka Chandler MD, FACOG Electronically signed by: Shameka Chandler MD, FACOG at: :19 us Shameka Chandler MD IMG US ORDERABLES Final Result documented in this encounter Visit Diagnoses Diagnosis History of IUFD documented in this encounter Care Teams Telecom Sales Consultant Relationship Specialty Start Date End Date Loan Vick MD [address] [place] [address] PCP - General Family Medicine 08/23/24 documented as of this encounter
--- OUTSIDE RECORDS SUMMARY | 2024-09-27 15:15 | XMS_ITS | Encounter Summary ---
Author Organization [facility] Address [address] [place] [address] Care Team Providers Care Fruit Or Nut Picker Name Role Phone Loan Vick MD Primary Care Provider +1- [phone] Reason for Referral * Diagnostic Imaging (Routine) - Closed Specialty Diagnoses / Procedures Referred By Contac t Referred To Contact Radiology Diagnoses History of IUFD Procedures [facility] Shameka Chandler MD [address] [facility] [address] [place] [address] Phone: tel: fax: Referral ID Status Reason Start Date Expiration Date Visits Re quested Visits Authorized Closed 10/02/2024 01/01/2026 1 1 Reason for Visit * Reason Comments 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 child with CP; MO; hx seizures Encounter Details Date Type Department Care Team (Late Contact Info) Description 09/27/2024 3:15 PM EDT Office Visit [facility] MATERNAL MEDICINE [address] [facility] [address] [place] [phone] Shameka Chandler MD [address] [facility] [address] [place] [address] History of IUFD (Primary Dx) Social History Tobacco Use Types Packs/Day Years [...] on file documented as of this encounter Last Filed Vital Signs Vital Sign Reading Time Taken Comments Blood Pressure 119/62 09/27/2024 2:44 PM EDT Pulse - - Temperature - - Respiratory Rate - - Oxygen Saturation - - Inhaled Oxygen Concentration - - Weight 99.5 kg (219 lb 6.4 oz) 09/27/2024 2:44 P M EDT Height - - Body Mass Index 41.46 11/09/2023 11:11 AM EDT documented in this encounter Progress Notes * Alessandra Sparks RN - 09/27/2024 3:15 PM EDT Patient denies any leaking of fluid, vaginal bleeding, or contractions. NIPT negative. Patient reports next follow-up appointment with Dr. Gilbert's office is 10/09. * Shameka Chandler MD - 09/27/2024 3:15 PM EDT Patient seen in Diagnostic Center today for ultrasound. Please see ultrasound report under imaging tab of patient chart in [facility] (Viewpoint report). Shameka Chandler MD documented in this encounter Plan of Treatment Upcoming Encounters Date Type Department Care Team (Late st Contact Info) Description 11/28/2024 2:45 PM EDT Office Visit [facility] MATERNAL MEDICINE [address] [place] [address] [place] [phone] 11/28/2024 2:45 PM EDT Appointment [facility] [address] [place] [address] documented as of this encounter Results * [facility] (10/25/2024 2:00 PM EDT) Anatomical Region Laterality Modality Ultrasound 10/25/2024 1:37 PM EDT Narrative 10/25/2024 2:13 PM EDT PAT NAME: SANDEEP BRITO MED REC#: [id number] DA: [id number] PAT GEND: F PAT TYPE: O EXAM TED: [id number] REF PHYS HARINI GILBERT Comparison Studies The findings of this study are compared to the prior ultrasound study dated 09/27/24 Patient Status Outpatient Indication ======== 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 MO BMI 42. H/O seizures. Previous child with cerebral palsy. Maternal Assessment Height 154 cm Height (ft) 5 ft Height (in) 1 in Weight 100 kg Weight (lb) 221 lb BMI 42.27 kg/m Method ======= Transabdominal ultrasound examination. View: Suboptimal view: limited by position ========= Cummins . Number of fetuses: 1 Dating ====== Method of dating: based on stated ROHINI GA by prior assessment 28 w + 0 d ROHINI by prior assessment: 01/17/2025 Ultrasound examination on: 10/25/2024 GA by U/S based upon: AC, BPD, Femur, HC GA by U/S 30 w + 5 d ROHINI by U/S: 12/29/2024 Previous dating: based on stated ROHINI, selected on 09/27/2024 Agreed ROHINI of previous datin01/17/2025 Assigned: based on stated ROHINI, selected on 10/25/2024 Assigned GA 28 w + 0 d Assigned ROHINI: 01/17/2025 length 280 d Biometry Standard BPD 74.8 mm 30w 0d 92% Hadlock OFD 101.5 mm 32w 6d >99% Sindy HC 280.1 mm 30w 5d 92% Hadlock Cerebellum tr 34.6 mm 29w 0d 79% Hill AC 278.9 mm 32w 0d >99% Hadlock Femur 57.0 mm 29w 6d 86% Hadlock Humerus 49.4 mm 29w 0d 72% Sindy HC / AC 1.00 EFW 1,686 g 30w 5d >99% Hadlock EFW (lb) 3 lb EFW (oz) 11 oz EFW by: Hadlock (UMJ-VM-OM-FL) Extended Cav. septi pel. tr 5.8 mm Soft Metals Engraver Hand 6.4 mm CM 6.6 mm 47% Nicolaides Head / Face / Neck Cephalic index 0.74 6% Nicolaides Extremities / Bony Struc FL / BPD 0.76 FL / HC 0.20 FL / AC 0.20 Other Structures FHR 151 bpm General Evaluation Cardiac activity present. FHR 151 bpm. movements present. Presentation cephalic. Placenta Placental site: posterior. Umbilical cord Cord vessels: 3 vessel cord. Amniotic fluid Amount of AF: normal. MVP 7.2 cm. KALEIGH 22.6 cm. Q1 3.4 cm, Q2 7.2 cm, Q3 6.6 cm, Q4 5.3 cm. Anatomy Cranium: Normal Cavum septi pellucidi: Normal Cerebellum: Normal Cisterna magna: Normal Head / Neck Rt lateral ventricle: Normal Lt lateral ventricle: Normal Lips: Normal Profile: Normal Nose: Normal 4-chamber view: Appears normal RVOT view: Normal LVOT view: Normal Heart / Thorax 3-vessel view: Normal 4-lqkthr-xbilcnv view: normal Cord insertion: Normal Stomach: Appears normal Kidneys: Appears normal Bladder: Appears normal Gender: female Wants to know gender: yes Maternal Structures Uterus / Cervix Cervix: Visualized Approach: Transabdominal Cervical length 41.5 mm Doppler Arterial Umbilical A PI 0.87 20% Maite Umbilical A RI 0.61 23% Maite Umbilical A PS -48.40 cm/s Umbilical A ED -18.90 cm/s Umbilical A TAmax -34.09 cm/s Umbilical A MD -17.24 cm/s Umbilical A S / D 2.56 21% Maite Umbilical A HR 146 bpm Biophysical Profile 2: breathing movements 2: Gross body movements 2: tone 2: Amniotic fluid volume 11/23 Biophysical profile score Consultation / Office Visit Office note to follow Impression Today's exam reveals a SIUP in cephalic presentation with biometry inconsistent with dates, EFW >99%ile and AC>99%ile. Limited anatomic survey appears normal. The KALEIGH (23cm) and BPP normal. Recommendation 4 weeks. Instructed to perform glucose checks x 1 week given size. Coding ======= Description: 27587-02 Follow Up Metal Flooring Installer: RT Lashon Wolf , [facility] Physician: Deven Chinchilla MD, FACOG Electronically signed by: Deven Chinchilla MD, FACOG at: 14:13 Procedure Note Deven Chinchilla MD - 10/25/2024 PAT NAME: SANDEEP BRITO MED REC#: [id number] DA: 2000 PAT GEND: F PAT TYPE: O EXAM TED: [id number] REF PHYS HARINI GILBERT Comparison Studies The findings of this study are compared to the prior ultrasound studydated 09/27/24 Patient Status Outpatient Indication ======== 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 MO BMI 42. H/O seizures. Previous child with cerebralpalsy. Maternal Assessment Nhzbpr851 cm Height (ft)5 ft Height (in)1 in Lfrevj742 kg Weight (lb)221 lb BMI42.27 kg/m Method ======= Transabdominal ultrasound examination. View: Suboptimal view: limited byfetal position ========= Cummins . Number of fetuses: 1 Dating ====== Method of dating:based on stated ROHINI GA by prior riqvtgxaus34 w + 0 d ROHINI by prior assessment:01/17/2025 Ultrasound examination on:10/25/2024 GA by U/S based upon:AC, BPD, Femur, HC GA by U/S30 w + 5 d ROHINI by U/S:12/29/2024 Previous dating:based on stated ROHINI, selected on 09/27/2024 Agreed ROHINI of previous datin01/17/2025 Assigned:based on stated ROHINI, selected on 10/25/2024 Assigned GA28 w + 0 d Assigned ORHINI:01/17/2025 gyhqra026 d Biometry Standard BPD74.8 mm 30w 0d 92% Hadlock EQT261.5 mm 32w 6d >99% Sindy HC280.1 mm 30w 5d 92% Hadlock Cerebellum tr34.6 mm 29w 0d 79% Hill AC278.9 mm 32w 0d >99% Hadlock Femur57.0 mm 29w 6d 86% Hadlock Etvfmpi94.4 mm 29w 0d 72% Sindy HC / AC1.00 EFW1,686 g 30w 5d >99% Hadlock EFW (lb)3 lb EFW (oz)11 oz EFW by:Hadlock ([id number]-[id number]-FL) Extended Cav. septi pel. tr5.8 mm Vp6.4 mm CM6.6 mm 47% Nicolaides Head / Face / Neck Cephalic index0.74 6% Nicolaides Extremities / Bony Struc FL / BPD0.76 FL / HC0.20 FL / AC0.20 Other Structures CSZ694 bpm General Evaluation Cardiac activity present. FHR 151 bpm. movements present. Presentation cephalic. Placenta Placental site: posterior. Umbilical cord Cord vessels: 3 vessel cord. Amniotic fluid Amount of AF: normal. MVP 7.2 cm. KALEIGH 22.6 cm. Q1 3.4 cm,Q2 7.2 cm, Q3 6.6 cm, Q4 5.3 cm. Anatomy Cranium:Normal Cavum septi pellucidi:Normal Cerebellum:Normal Cisterna magna:Normal Head / Neck Rt lateral ventricle:Normal Lt lateral ventricle:Normal Lips:Normal Profile:Normal Nose:Normal 4-chamber view:Appears normal RVOT view:Normal LVOT view:Normal Heart / Thorax 3-vessel view:Normal 7-rvndwq-vybzbxq view:normal Cord insertion:Normal Stomach:Appears normal Kidneys:Appears normal Bladder:Appears normal Gender:female Wants to know gender:yes Maternal Structures Uterus / Cervix Cervix:Visualized Approach:Transabdominal Cervical .5 mm Doppler Arterial Umbilical A PI0.87 20% Maite Umbilical A RI0.61 23% Maite Umbilical A PS-48.40 cm/s Umbilical A ED-18.90 cm/s Umbilical A TAmax-34.09 cm/s Umbilical A MD-17.24 cm/s Umbilical A S / D2.56 21% Maite Umbilical A HR146 bpm Biophysical Profile 2: breathing movements 2: Gross body movements 2: tone 2: Amniotic fluid volume 8 Biophysical profile score Consultation / Office Visit Office note to follow Impression Today's exam reveals a SIUP in cephalic presentation with biometryinconsistent with dates, EFW >99%ile and AC>99%ile. Limited anatomicsurvey appears normal. The KALEIGH (23cm) and BPP normal. Recommendation 4 weeks. Instructed to perform glucose checks x 1 week given size. Coding ======= Description:73400-16 Follow Up Metal Flooring Installer: RT Lashon Wolf , RDMS Physician: Deven Chinchilla MD, FACOG Electronically signed by: Deven Chinchilla MD, ZULEMAOG at: 14:13 us Shameka Chandler MD IMG US ORDERABLES Final Result documented in this encounter Visit Diagnoses Diagnosis History of IUFD- Primary History of IUFD documented in this encounter Care Teams Fruit Or Nut Picker Relationship Specialty Start Date End Date Loan Vikc MD [address] [place] [address] PCP - General Family Medicine 08/23/24 documented as of this encounter
--- OUTSIDE RECORDS SUMMARY | 2024-10-25 13:26 | XMS_ITS | Encounter Summary ---
Author Organization [facility] Address [address] [place] [id number] Care Team Providers Care Examination Supervisor Name Role Phone Loan Vick MD Primary Care Provider +1- [phone] Reason for Referral * Diagnostic Imaging (Routine) - Closed Specialty Diagnoses / Procedures Referred By Contac t Referred To Contact Radiology Diagnoses History of IUFD Procedures US [facility] Diagnostic [place] Shameka Chandler MD [address] [place] [address] Phone: tel: fax: Referral ID Status Reason Start Date Expiration Date Visits Re quested Visits Authorized Closed 10/02/2024 01/01/2026 1 1 Reason for Visit * Diagnostic Imaging (Routine) - Closed Specialty Diagnoses / Procedures Referred By Kennedy messina Referred To Contact Radiology Diagnoses History of IUFD Procedures US [facility] Diagnostic [place] Shameka Chandler MD [address] [address] Phone: tel: fax: Referral ID Status Reason Start Date Expiration Date Visits Re quested Visits Authorized Closed 10/02/2024 01/01/2026 1 1 Encounter Details Date Type Department Care Team (Late st Contact Info) Description 10/25/2024 1:26 PM EDT - 10/25/2024 11:59 PM EDT Hospital Encounter [facility] [address] [place] [address] Shameka Chandler MD [address] [facility] [address] [place] [address] History of IUFD Discharge Disposition: Home or [...] Description 11/28/2024 2:45 PM EDT Office Visit [facility] MED[facility] [address] [facility] [address] [place] [address] 11/28/2024 2:45 PM EDT Appointment [facility] [address] [place] [address] documented as of this encounter Procedures Procedure Name Priority Date/Time Associated Diagnosis Comments [facility] Routine 10/25/2024 2:00 PM EDT History of IUFD documented in this encounter Results * [facility] (10/25/2024 2:00 PM EDT) Anatomical Region Laterality Modality Ultrasound 10/25/2024 1:37 PM EDT Narrative 10/25/2024 2:13 PM EDT PAT NAME: SANDEEP BRITO MED REC#: [id number] DA: [id number] PAT GEND: F PAT TYPE: O EXAM TED: [id number] REF PHYS HARINI MONTEZ Comparison Studies The [...] EFW (oz) 11 oz EFW by: Hadlock (AFY-IJ-IO-FL) Extended Cav. septi pel. tr 5.8 mm Label Stamper 6.4 mm CM 6.6 mm 47% Nicolaides [...] Normal Heart / Thorax 3-vessel view: Normal 1-ubcqvz-uxrgtcf view: normal Cord insertion: Normal Stomach: Appears [...] 1 week given size. Coding ======= Description: 58089-84 Follow Up Caseworker Intake: RT Lashon Wolf , [facility] Physician: Deven Chinchilla MD, FACOG Electronically signed by: Deven Chinchilla MD, FACOG at: 14:13 Procedure Note Deven Chinchilla MD - 10/25/2024 PAT NAME: SANDEEP BRITO MED REC#: [id number] DA: 2000 PAT GEND: F PAT TYPE: O EXAM TED: [id number] REF PHYS HARINI MONTEZ Comparison Studies The findings of this study are compared to the prior ultrasound studydated 09/27/24 Patient Status Outpatient Indication ======== 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 MO BMI 42. H/O seizures. Previous child with cerebralpalsy. Maternal Assessment Jktvyh365 cm Height (ft)5 ft Height (in)1 in Lqokac462 kg Weight (lb)221 lb BMI42.27 kg/m Method ======= Transabdominal ultrasound examination. View: Suboptimal view: limited byfetal position ========= Cummins . Number of fetuses: 1 Dating ====== Method of dating:based on stated ROHINI GA by prior w + 0 d ROHINI by prior assessment:01/17/2025 Ultrasound examination on:10/25/2024 GA by U/S based upon:AC, BPD, Femur, HC GA by U/S30 w + 5 d ROHINI by U/S:12/29/2024 Previous dating:based on stated ROHINI, selected on 09/27/2024 Agreed ROHINI of previous datin01/17/2025 Assigned:based on stated ROHINI, selected on 10/25/2024 Assigned GA28 w + 0 d Assigned ROHINI:01/17/2025 yulrxx447 d Biometry Standard BPD74.8 mm 30w 0d 92% Hadlock IWA928.5 mm 32w 6d >99% Sindy HC280.1 mm 30w 5d 92% Hadlock Cerebellum tr34.6 mm 29w 0d 79% Hill AC278.9 mm 32w 0d >99% Hadlock Femur57.0 mm 29w 6d 86% Hadlock Sloikox68.4 mm 29w 0d 72% Sindy HC / AC1.00 EFW1,686 g 30w 5d >99% Hadlock EFW (lb)3 lb EFW (oz)11 oz EFW by:Hadlock (ADI-IS-XV-FL) Extended Cav. septi pel. tr5.8 mm Vp6.4 mm CM6.6 mm 47% Nicolaides Head / Face / Neck Cephalic index0.74 6% Nicolaides Extremities / Bony Struc FL / BPD0.76 FL / HC0.20 FL / AC0.20 Other Structures QMW982 bpm General Evaluation Cardiac activity present. FHR [...] LVOT view:Normal Heart / Thorax 3-vessel view:Normal 8-mavasq-nvcxpmb view:normal Cord insertion:Normal Stomach:Appears normal Kidneys:Appears normal Bladder:Appears normal Gender:female Wants to know gender:yes Maternal Structures Uterus / Cervix Cervix:Visualized Approach:Transabdominal Cervical ezwnmt40.5 mm Doppler Arterial Umbilical A PI0.87 20% [...] x 1 week given size. Coding ======= Description:66313-98 Follow Up Caseworker Intake: RT Lashon Wolf , [facility] Physician: Deven Chinchilla MD, FACOG Electronically signed by: Deven Chinchilla MD, FACOG at: 14:13 us Shameka Chandler MD IMG US ORDERABLES Final Result documented in this encounter Visit Diagnoses Diagnosis History of IUFD documented in this encounter Care Teams Examination Supervisor Relationship Specialty Start Date End Date Loan Vick MD [address] [place] [address] PCP - General Family Medicine 08/23/24 documented as of this encounter
--- OUTSIDE RECORDS SUMMARY | 2024-10-25 14:45 | XMS_ITS | Encounter Summary ---
[facility] Address [address] [place] [id number] Care Team Providers Care Shipping And Receiving Coordinator Name Role Phone Loan Vick MD Primary Care Provider +1- [phone] Reason for Referral * Diagnostic Imaging (Routine) - Authorized Specialty Diagnoses / Procedures Referred By Contact Referred To Contact Obstetrics and Gynecology Diagnoses History of IUFD Procedures [facility] Deven Chinchilla MD [address] [facility] [address] [place] [address] Phone: tel: fax: [facility] MEDIC[facility] [address] [facility] [address] [place] [address] Phone: tel: fax: Referral ID Status Reason Start Date Expiration Date V isits Requested Visits Authorized [id number] Authorized 10/25/2024 01/24/2026 2 2 Reason for Visit * Reason Comments hx 39 week IUFD; MO; hx seizures; prev. child with CP Encounter Details Date Type Department Care Team (Late Contact Info) Description 10/25/2024 2:45 PM EDT Office Visit [facility] MEDIC[facility] [address] [facility] [address] [place] [phone] Deven Chinchilla MD [address] [facility] [address] [place] [address] History of IUFD (Primary Dx) Social History [...] Maternal/ Medicine Consult Note Date: 10/25/2024 Name: Pili Kyle : 2000 Referring Provider: Iram Gilbert DO Chief Complaint hx 39 week IUFD; MO; hx seizures; prev. child with CP Subjective History of Present Illness: Pili Kyle is a 23 y.o. 28w0d who presents [...] Ultrasound Impression: See Viewpoint Assessment and Plan Pili Kyle is a 23 y.o. 28w0d who presents [...] to take to her appointment with primary OBJECTIVE C DEVELOPER next week. Patient reports history of decreasedfetal movement for the past day or so though has felt some movement. movement noted on ultrasound today. We discussed careful return precautions regarding decreased movement and to reportto primary OBJECTIVE C DEVELOPER if decreased movement has occurred. Follow [...] CVS. Deven Chinchilla MD, FACOG Maternal Medicine, [facility] * Deven Chinchilla MD - 10/25/2024 [...] to take to her appointment with primary OBJECTIVE C DEVELOPER next week. Patient reports history of decreasedfetal movement for the past day or so though has felt some movement. movement noted on ultrasound today. We discussed careful return precautions regarding decreased movement and to reportto primary OBJECTIVE C DEVELOPER if decreased movement has occurred. documented in this encounter Plan of Treatment Upcoming Encounters Date Type Department Care Team (Late st Contact Info) Description 11/28/2024 2:45 PM EDT Office Visit [facility] MATERNAL MEDICINE [address] [place] [address] [address] [place] [address] 11/28/2024 2:45 PM EDT Appointment [facility] [address] [place] [address] Scheduled Orders Name Type Priority Associated Diagnoses Orde r Schedule [facility] Imaging Routine History of IUFD Every 4 Weeks for 2 Occurrences starting 10/25/2024 until 10/25/2025 documented as of this encounter Visit Diagnoses Diagnosis History of IUFD- Primary documented in this encounter Care Teams Shipping And Receiving Coordinator Relationship Specialty Start Date End Date Loan Vick MD [address] [place] [address] PCP - General Family Medicine 08/23/24 documented as of this encounter
--- OUTSIDE RECORDS SUMMARY | 2024-11-26 10:54 | XMS_ITS | Clinical Summary ---
Author Organization [facility] Address [address] [address] Phone Care Team Providers Care Registered Route Associate Name Role Phone Unavailable Unavailable Conditions or Problems No information available. Medications No information available. Medications Administered No information available. Allergies, Adverse Reactions, Alerts No information available. Results No information available. Plan of Care No information available. Procedures Code Procedure Name Date Entry Date CPT-39908 COVID-19 Moderna CPT-0012A IZ administration - COVID-19 - Moderna 2n d dose CPT-08990 COVID-19 Moderna CPT-88367 IZ administration - injection - single 20 [...]
--- OUTSIDE RECORDS SUMMARY | 2024-11-26 10:55 | XMS_ITS | Encounter Summary ---
[facility] [address] [place] [phone] Care Team Providers Care Research Electrician Name Role Phone Loan Vick MD Primary Care Provider +1- [phone] Reason for Visit * Reason Comments Med Refill Encounter Details Date Type Department Care Team (Late Contact Info) Description 11/23/2024 Refill [facility] MATERNAL MEDICINE [address] [facility] [address] [place] [address] Deven Chinchilla MD [address] [facility] [address] [place] [address] Social History Tobacco Use Types Packs/Day Years [...] Description 11/28/2024 2:45 PM EDT Office Visit [facility] MATERNAL MEDICINE [address] [facility] [address] [place] [address] 11/28/2024 2:45 PM EDT Appointment [facility] PER DI[facility] [address] [place] [address] documented as of this encounter Visit Diagnoses Not on filedocumented in this encounter Care Teams Research Electrician Relationship Specialty Start Date End Date Loan Vick MD [address] [place] [address] PCP - General Family Medicine 08/23/24 documented as of this encounter
--- OUTSIDE RECORDS SUMMARY | 2024-11-26 10:55 | XMS_ITS | Clinical Summary ---
Author Organization [facility] Address [address] [place] [address] Care Team Providers Care Spray Gun Repairer Helper Name Role Phone Loan Vick MD Primary Care Provider +1- [phone] Allergies Active Allergy Reactions Criticality Noted Date [...] Day As Needed for Heartburn. Active glucose monitor monitoring kit Use 1 each As Needed (fasting, 2 hours postprandial). 1 each 5 Active glucose blood test strip Use as instructed. Fasting, 2 hours postprandial 50 each 6 5 Active glucose blood test strip Use as instructed. Fasting, 2 hours postprandial 50 each 5 025 Discontin ued(Reord er) Active Problems Problem Noted Date Diagnosed Date [...] to take to her appointment with primary REHAB/PRE VOCATIONAL COUNSELOR next week. Patient reports history of decreased movement for the past day or so though has felt some movement. movement noted on ultrasound today. We discussed careful return precautions regarding decreased movement and to report to primary REHAB/PRE VOCATIONAL COUNSELOR if decreased movement has occurred. Assessment & Plan (08/25/2024 8:31 PM EDT): Patient previously seen by MFM for preconception consultation (see note by Dr [...] with a prior live born, growth restricted infant delivered before 32 weeks of gestation than [...] Encounters Date Type Department Care Team Description 11/26/2024 Medication Therapy Management [facility] MATERNAL MEDICINE [address] [phone] Deven Chinchilla MD 11/23/2024 Refill [facility] MATERNAL MEDICINE [address] [address] Deven Chinchilla MD 10/25/2024 2:45 PM EDT Office Visit [facility] MATERNAL MEDICINE [address] [address] Deven Chinchilla MD History of IUFD (Primary Dx) 10/25/2024 1:26 PM EDT - 10/25/2024 11:59 PM EDT Hospital Encounter [facility] US PER DI[facility] [address] [place] [address] Shameka Chandler MD History of IUFD Discharge Disposition: Home or Self Care 10/25/2024 Travel 09/27/2024 3:15 PM EDT Office Visit [facility] [address] [facility] [address] [place] [address] Shameka Chandler MD History of IUFD (Primary Dx) 09/27/2024 2:40 PM EDT - 09/27/2024 11:59 PM EDT Hospital Encounter [facility] PER [facility] [address] [place] [phone] Shameka Chandler MD History of IUFD Discharge Disposition: Home or Self Care 09/27/2024 Travel from Last 3 Months Social History [...] Description 11/28/2024 2:45 PM EDT [facility] MAT[facility] MEDIC[facility] [address] [place] [address] 11/28/2024 2:45 PM EDT Appointment [facility] PER DI[facility] [address] [place] [address] Health Maintenance Due Date Last Done Comments [...] Procedure Name Priority Date/Time Associated Diagnosis Comments [facility] Routine 10/25/2024 2:00 PM EDT History of IUFD [facility] Routine 09/27/2024 3:24 PM EDT History of IUFD from Last 3 Months Results * [facility] (10/25/2024 2:00 PM EDT) Only the most recent of2 resultswithin the time period is included. Anatomical Region Laterality Modality Ultrasound 10/25/2024 1:37 PM EDT Narrative 10/25/2024 2:13 PM EDT PAT NAME: SANDEEP BRITO MED REC#: [id number] DA: [id number] PAT GEND: F PAT TYPE: O EXAM TED: [id number] REF PHYS HARINI MONTEZ Comparison Studies The [...] EFW (oz) 11 oz EFW by: Hadlock ([id number]) Extended Cav. septi pel. tr 5.8 mm Edge Cutting Machine Operator 6.4 mm CM 6.6 mm [...] Normal Heart / Thorax 3-vessel view: Normal 2-hyddzz-ustmmzz view: normal Cord insertion: Normal Stomach: Appears [...] 1 week given size. Coding ======= Description: 47935-47 Follow Up Adjunct Communications Faculty Member: RT Lashon Wolf , MS Physician: Deven Chinchilla MD, FACOG Electronically signed by: Deven Chinchilla MD, FACOG at: 14:13 Procedure Note Deven Chinchilla MD - 10/25/2024 PAT NAME: SANDEEP BRITO MED REC#: [id number] DA: 2000 PAT GEND: F PAT TYPE: O EXAM TED: [id number] REF PHYS HARINI MONTEZ Comparison Studies The findings of this study are compared to the prior ultrasound studydated 09/27/24 Patient Status Outpatient Indication ======== 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 MO BMI 42. H/O seizures. Previous child with cerebralpalsy. Maternal Assessment Gbhcmc470 cm Height (ft)5 ft Height (in)1 in Iptkny517 kg Weight (lb)221 lb BMI42.27 kg/m Method ======= Transabdominal ultrasound examination. View: Suboptimal view: limited byfetal position ========= Cummins . Number of fetuses: 1 Dating ====== Method of dating:based on stated ROHINI GA by prior [email or web address] w + 0 d ROHINI by prior assessment:01/17/2025 Ultrasound examination on:10/25/2024 GA by U/S based upon:AC, BPD, Femur, HC GA by U/S30 w + 5 d ROHINI by U/S:12/29/2024 Previous dating:based on stated ROHINI, selected on 09/27/2024 Agreed ROHINI of previous datin01/17/2025 Assigned:based on stated ROHINI, selected on 10/25/2024 Assigned GA28 w + 0 d Assigned ROHINI:01/17/2025 [id number] d Biometry Standard BPD74.8 mm 30w 0d 92% Hadlock TJM569.5 mm 32w 6d >99% Sindy HC280.1 mm 30w 5d 92% Hadlock Cerebellum tr34.6 mm 29w 0d 79% Hill AC278.9 mm 32w 0d >99% Hadlock Femur57.0 mm 29w 6d 86% Hadlock Fbzojtj84.4 mm 29w 0d 72% Sindy HC / AC1.00 EFW1,686 g 30w 5d >99% Hadlock EFW (lb)3 lb EFW (oz)11 oz EFW by:Hadlock ([id number]) Extended Cav. septi pel. tr5.8 mm Vp6.4 mm CM6.6 mm 47% Nicolaides Head / Face / Neck Cephalic index0.74 6% Nicolaides Extremities / Bony Struc FL / BPD0.76 FL / HC0.20 FL / AC0.20 Other Structures DAG685 bpm General Evaluation Cardiac activity present. FHR [...] LVOT view:Normal Heart / Thorax 3-vessel view:Normal 0-cyrwfn-vactyiu view:normal Cord insertion:Normal Stomach:Appears normal Kidneys:Appears normal [...] x 1 week given size. Coding ======= Description:46613-32 Follow Up Adjunct Communications Faculty Member: RT Lashon Wolf , RDWY Physician: Deven Chinchilla MD, FACOG Electronically signed by: Deven Chinchilla MD, FACOG at: 14:13 us Shameka Chandler MD G US ORDERABLES Final Result from Last 3 Months Insurance Care Teams Spray Gun Repairer Helper Relationship Specialty Start Date End Date Loan Vick MD [address] [place] [address] PCP - General Family Medicine 08/23/24
--- OUTSIDE RECORDS SUMMARY | 2024-11-26 10:55 | XMS_ITS | Encounter Summary ---
[facility] Address [address] [place] [phone] Care Team Providers Care Wire Stockkeeper Name Role Phone Loan Vick MD Primary Care Provider +1- [phone] Encounter Details Date Type Department Care Team (Late Contact Info) Description 11/26/2024 Medication Therapy Management [facility] MATERNAL MEDICINE [address] [facility] [address] [place] [address] Deven Chinchilla MD [address] [facility] [address] [place] [id number] Social History Tobacco Use Types Packs/Day Years [...] Description 11/28/2024 2:45 PM EDT Office Visit [facility] MATERNAL MEDICINE [address] [facility] [address] [place] [address] 11/28/2024 2:45 PM EDT Appointment [facility] [address] [place] [phone] documented as of this encounter Visit Diagnoses Not on filedocumented in this encounter Care Teams Wire Stockkeeper Relationship Specialty Start Date End Date Loan Vick MD [address] [place] [address] PCP - General Family Medicine 08/23/24 documented as of this encounter
--- OUTSIDE RECORDS SUMMARY | 2024-11-26 10:55 | XMS_ITS | Encounter Summary ---
[facility] Address [address] [place] [id number] Care Team Providers Care Universal Worker Assisted Living Name Role Phone Loan Vick MD Primary Care Provider +1- [phone] Encounter Details Date Type Department Care Team [...] Description 11/28/2024 2:45 PM EDT Office Visit [facility] MATERNAL MEDICINE [address] [facility] [address] [place] [address] 11/28/2024 2:45 PM EDT Appointment [facility] [address] [place] [address] documented as of this encounter Visit Diagnoses Not on filedocumented in this encounter Care Teams Universal Worker Assisted Living Relationship Specialty Start Date End Date Loan Vick MD [address] [place] [address] PCP - General Family Medicine 08/23/24 documented as of this encounter
--- OUTSIDE RECORDS SUMMARY | 2024-11-26 10:55 | XMS_ITS | Encounter Summary ---
[facility] Address [address] [place] [id number] Care Team Providers Care Wireless Cellular Technician Name Role Phone Loan Vick MD Primary Care Provider +1- [phone] Encounter Details Date Type Department Care Team [...] Description 11/28/2024 2:45 PM EDT Office Visit [facility] MATERNAL MEDICINE [address] [facility] [address] [place] [address] 11/28/2024 2:45 PM EDT Appointment [facility] PER DI[facility] [address] [place] [address] documented as of this encounter Visit Diagnoses Not on filedocumented in this encounter Care Teams Wireless Cellular Technician Relationship Specialty Start Date End Date Loan Vick MD [address] [place] [address] PCP - General Family Medicine 08/23/24 documented as of this encounter
== END 2024-11-23 23:59 | disposition home or self-care (01) ==
LOC: LAB.DROPOF 11-26 10:43
PROVIDERS: PCP Obstetrics & Gynecology; Visit Provider Obstetrics & Gynecology
DX: O24.419 Gestational diabetes mellitus in pregnancy, unspecified control (principal); O36.60X0 Maternal care for excessive fetal growth, unspecified trimester, not applicable or unspecified; O09.299 Supervision of pregnancy with other poor reproductive or obstetric history, unspecified trimester; Z3A.00 Weeks of gestation of pregnancy not specified
CPT/HCPCS: 87086

== ENCOUNTER 2024-11-23 11:21 | Outpatient (CLI) | payer BC, SELFPAY ==
--- OUTSIDE RECORDS SUMMARY | 2024-09-27 14:40 | XMS_ITS | Encounter Summary ---
[facility] [address] [place] [address] Care Team Providers Care Hr Business Partner Name Role Phone Loan Vick MD Primary Care Provider +1- [phone] Reason for Referral * Diagnostic Imaging (Routine) - Closed Specialty Diagnoses / Procedures Referred By Contac t Referred To Contact Radiology Diagnoses History of IUFD Procedures [facility] [place] Shameka Chandler MD [address] [place] [address] Phone: tel: fax: Referral ID Status Reason Start Date Expiration Date Visits Re quested Visits Authorized [id number] Closed 08/25/2024 11/24/2025 1 1 Reason for Visit * Diagnostic Imaging (Routine) - Closed Specialty Diagnoses / Procedures Referred By Contjose messina Referred To Contact Radiology Diagnoses History of IUFD Procedures [facility] [place] Shameka Chandler MD [address] [address] Phone: tel: fax: Referral ID Status Reason Start Date Expiration Date Visits Re quested Visits Authorized [id number] Closed 08/25/2024 11/24/2025 1 1 Encounter Details Date Type Department Care Team (Late Contact Info) Description 09/27/2024 2:40 PM EDT - 09/27/2024 11:59 PM EDT Hospital Encounter [facility] [address] [place] [address] Shameka Chandler MD [address] [place] [address] History of IUFD Discharge Disposition: Home or [...] Description 11/28/2024 2:45 PM EDT Office Visit [facility] MATERNAL MEDICINE [address] [address] 11/28/2024 2:45 PM EDT Appointment [facility] [address] [place] [address] documented as of this encounter Procedures Procedure Name Priority Date/Time Associated Diagnosis Comments [facility] Routine 09/27/2024 3:24 PM EDT History of IUFD documented in this encounter Results * [facility] (09/27/2024 3:24 PM EDT) Anatomical Region Laterality Modality Ultrasound 09/27/2024 2:59 PM EDT Narrative 10/02/2024 7:19 PM EDT PAT NAME: SANDEEP BRITO MED REC#: [id number] DA: 2000 PAT GEND: F PAT TYPE: O EXAM TED: [id number] REF PHYS HARINI MONTEZ Comparison Studies The [...] EFW (oz) 10 oz EFW by: Hadlock (CVJ-OL-ZF-FL) Extended Foot 44.5 mm 51% Chitty Cav. septi pel. tr 5.3 mm Manager Operating 4.6 mm CM 6.9 mm 77% Nicolaides [...] IVC: Appears Normal 3-vessel view: Appears normal 8-ubodgi-pnjjocz view: Appears normal Cord insertion: Normal Stomach: [...] Follow up 4 weeks Coding ======= Description: 22769-32 Follow Up Medication Tech: RT Lashon Wolf , [facility] Physician: Shameka Chandler MD, FACOG Electronically signed by: Shameka Chandler MD, FACOG at: 19:19 Procedure Note Shameka Chandler MD - 10/02/2024 PAT NAME: SANDEEP BRITO MED REC#: [id number] DA: [id number] PAT GEND: F PAT TYPE: O EXAM TED: [id number] REF PHYS HARINI MONTEZ Comparison Studies The findings of this study are compared to the prior ultrasound studydated 08/23/24 Patient Status Outpatient Indication ======== 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 MO BMI 42. H/O seizures. Previous child with cerebralpalsy. Maternal Assessment Hebvxz237 cm Height (ft)5 ft Height (in)1 in Iypzrf44 kg Weight (lb)219 lb BMI41.89 kg/m Method ======= Transabdominal ultrasound examination. View: Good view ========= Cummins . Number of fetuses: 1 Dating ====== Method of dating:based on stated ROHINI GA by prior zdaorpkqpv76 w + 0 d ROHINI by prior assessment:01/17/2025 Ultrasound examination on:09/27/2024 GA by U/S based upon:AC, BPD, Femur, HC GA by U/S25 w + 0 d ROHINI by U/S:01/10/2025 Previous dating:based on stated ROHINI, selected on 08/23/2024 Agreed ROHINI of previous datin01/17/2025 Assigned:based on stated ROHINI, selected on 09/27/2024 Assigned GA24 w + 0 d Assigned ROHINI:01/17/2025 hhivpf212 d Biometry Standard BPD62.4 mm 25w 2d 86% Hadlock OFD81.3 mm 26w 3d 99% Sindy HC229.5 mm 25w 0d 70% Hadlock Cerebellum tr28.9 mm 25w 2d 93% Hill AC207.7 mm 25w 2d 81% Hadlock Femur43.4 mm 24w 2d 45% Hadlock Miyuege21.4 mm 24w 4d 57% Sindy HC / AC1.10 UHI929 g 24w 5d 81% Hadlock EFW (lb)1 lb EFW (oz)10 oz EFW by:Hadlock (QIW-ZD-PC-FL) Extended Foot44.5 mm 51% Chitty Cav. septi pel. tr5.3 mm Vp4.6 mm CM6.9 mm 77% Nicolaides Nasal bone6.8 mm Head / Face / Neck Cephalic index0.77 30% Nicolaides Extremities / Bony Struc FL / BPD0.70 FL / HC0.19 FL / AC0.21 Other Structures HSG149 bpm General Evaluation Cardiac activity present. FHR [...] SVC:Appears Normal IVC:Appears Normal 3-vessel view:Appears normal 8-buhuqm-vfiwwxt view:Appears normal Cord insertion:Normal Stomach:Appears normal Kidneys:Appears normal Bladder:Appears normal Gender:female Wants to know gender:yes Maternal Structures Uterus / Cervix Cervix:Visualized Approach:Transabdominal Cervical faieog30.7 mm Doppler Arterial Umbilical A PI1.16 57% [...] Recommendation Follow up 4 weeks Coding ======= Description:62808-98 Follow Up Medication Tech: RT Lashon Wolf , [facility] Physician: Shamkea Chandler MD, FACOG Electronically signed by: Shameka Chandler MD, FACOG at: :19 us Shameka Chandler MD IMG US ORDERABLES Final Result documented in this encounter Visit Diagnoses Diagnosis History of IUFD documented in this encounter Care Teams Hr Business Partner Relationship Specialty Start Date End Date Loan Vick MD [address] [place] [address] PCP - General Family Medicine 08/23/24 documented as of this encounter
--- OUTSIDE RECORDS SUMMARY | 2024-09-27 15:15 | XMS_ITS | Encounter Summary ---
Author Organization [facility] Address [address] [place] [address] Care Team Providers Care Apparatus Repair Mechanic Name Role Phone Loan Vick MD Primary Care Provider +1- [phone] Reason for Referral * Diagnostic Imaging (Routine) - Closed Specialty Diagnoses / Procedures Referred By Contac t Referred To Contact Radiology Diagnoses History of IUFD Procedures [facility] Shameka Chandler MD [address] [facility] [address] [place] [address] Phone: tel: fax: Referral ID Status Reason Start Date Expiration Date Visits Re quested Visits Authorized Closed 10/02/2024 01/01/2026 1 1 Reason for Visit * Reason Comments 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 child with CP; MO; hx seizures Encounter Details Date Type Department Care Team (Late Contact Info) Description 09/27/2024 3:15 PM EDT Office Visit [facility] MATERNAL MEDICINE [address] [facility] [address] [place] [phone] Shameka Chandler MD [address] [facility] [address] [place] [address] History of IUFD (Primary Dx) Social [...] under imaging tab of patient chart in [facility] (Viewpoint report). Shameka Chandler MD documented in this encounter Plan of Treatment Upcoming Encounters Date Type Department Care Team (Late st Contact Info) Description 11/28/2024 2:45 PM EDT Office Visit [facility] MATERNAL MEDICINE [address] [place] [address] [place] [phone] 11/28/2024 2:45 PM EDT Appointment [facility] [address] [place] [address] documented as of this encounter Results * [facility] (10/25/2024 2:00 PM EDT) Anatomical Region Laterality Modality Ultrasound 10/25/2024 1:37 PM EDT Narrative 10/25/2024 2:13 PM EDT PAT NAME: SANDEEP BRITO MED REC#: [id number] DA: [id number] PAT GEND: F PAT TYPE: O EXAM TED: [id number] REF PHYS HARINI GILBERT Comparison Studies The [...] EFW (oz) 11 oz EFW by: Hadlock ([id number]-NU-MO-FL) Extended Cav. septi pel. tr 5.8 mm Embossing Machine Operator Helper 6.4 mm CM 6.6 mm 47% Nicolaides [...] Normal Heart / Thorax 3-vessel view: Normal 3-ihiiif-llibiok view: normal Cord insertion: Normal Stomach: Appears [...] 1 week given size. Coding ======= Description: 69912-12 Follow Up Brand Ambassador Promotional Model: RT Lashon Wolf , [facility] Physician: Deven Chinchilla MD, FACOG Electronically signed by: Deven Chinchilla MD, FACOG at: 14:13 Procedure Note Deven Chinchilla MD - 10/25/2024 PAT NAME: SANDEEP BRITO MED REC#: [id number] DA: 2000 PAT GEND: F PAT TYPE: O EXAM TED: [id number] REF PHYS HARINI GILBERT Comparison Studies The findings of this study are compared to the prior ultrasound studydated 09/27/24 Patient Status Outpatient Indication ======== 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 MO BMI 42. H/O seizures. Previous child with cerebralpalsy. Maternal Assessment Ywjaqe793 cm Height (ft)5 ft Height (in)1 in Holspt613 kg Weight (lb)221 lb BMI42.27 kg/m Method ======= Transabdominal ultrasound examination. View: Suboptimal view: limited byfetal position ========= Cummins . Number of fetuses: 1 Dating ====== Method of dating:based on stated ROHINI GA by prior vnsxespusg76 w + 0 d ROHINI by prior assessment:01/17/2025 Ultrasound examination on:10/25/2024 GA by U/S based upon:AC, BPD, Femur, HC GA by U/S30 w + 5 d ROHINI by U/S:12/29/2024 Previous dating:based on stated ROHINI, selected on 09/27/2024 Agreed ROHINI of previous datin01/17/2025 Assigned:based on stated ROHINI, selected on 10/25/2024 Assigned GA28 w + 0 d Assigned ROHINI:01/17/2025 d Biometry Standard BPD74.8 mm 30w 0d 92% Hadlock BJJ841.5 mm 32w 6d >99% Sindy HC280.1 mm 30w 5d 92% Hadlock Cerebellum tr34.6 mm 29w 0d 79% Hill AC278.9 mm 32w 0d >99% Hadlock Femur57.0 mm 29w 6d 86% Hadlock Uqxmget49.4 mm 29w 0d 72% Sindy HC / AC1.00 EFW1,686 g 30w 5d >99% Hadlock EFW (lb)3 lb EFW (oz)11 oz EFW by:Hadlock (BTU-YX-KH-FL) Extended Cav. septi pel. tr5.8 mm Vp6.4 mm CM6.6 mm 47% Nicolaides Head / Face / Neck Cephalic index0.74 6% Nicolaides Extremities / Bony Struc FL / BPD0.76 FL / HC0.20 FL / AC0.20 Other Structures WTP805 bpm General Evaluation Cardiac activity present. FHR [...] LVOT view:Normal Heart / Thorax 3-vessel view:Normal 8-tadfnt-krlzpsw view:normal Cord insertion:Normal Stomach:Appears normal Kidneys:Appears normal Bladder:Appears normal Gender:female Wants to know gender:yes Maternal Structures Uterus / Cervix Cervix:Visualized Approach:Transabdominal Cervical ounbdu97.5 mm Doppler Arterial Umbilical A PI0.87 20% [...] x 1 week given size. Coding ======= Description:70102-65 Follow Up Brand Ambassador Promotional Model: RT Lashon Wolf , RDMS Physician: Deven Chinchilla MD, FACOG Electronically signed by: Deven Chinchilla MD, ZULEMAOG at: 14:13 us Shameka Chandler MD IMG US ORDERABLES Final Result documented in this encounter Visit Diagnoses Diagnosis History of IUFD- Primary History of IUFD documented in this encounter Care Teams Apparatus Repair Mechanic Relationship Specialty Start Date End Date Loan Vick MD [address] [place] [address] PCP - General Family Medicine 08/23/24 documented as of this encounter
--- OUTSIDE RECORDS SUMMARY | 2024-10-25 13:26 | XMS_ITS | Encounter Summary ---
Author Organization [facility] Address [address] [place] [id number] Care Team Providers Care Security Incident Handler Name Role Phone Loan Vick MD Primary Care Provider +1- [phone] Reason for Referral * Diagnostic Imaging (Routine) - Closed Specialty Diagnoses / Procedures Referred By Contac t Referred To Contact Radiology Diagnoses History of IUFD Procedures [facility] [place] Shameka Chandler MD [address] [place] [address] Phone: tel: fax: Referral ID Status Reason Start Date Expiration Date Visits Re quested Visits Authorized Closed 10/02/2024 01/01/2026 1 1 Reason for Visit * Diagnostic Imaging (Routine) - Closed Specialty Diagnoses / Procedures Referred By Kennedy messina Referred To Contact Radiology Diagnoses History of IUFD Procedures [facility] [place] Shameka Chandler MD [address] [address] Phone: tel: fax: Referral ID Status Reason Start Date Expiration Date Visits Re quested Visits Authorized Closed 10/02/2024 01/01/2026 1 1 Encounter Details Date Type Department Care Team (Late st Contact Info) Description 10/25/2024 1:26 PM EDT - 10/25/2024 11:59 PM EDT Hospital Encounter [facility] [address] [place] [address] Shameka Chandler MD [address] [facility] [address] [place] [address] History of IUFD Discharge Disposition: [...] Description 11/28/2024 2:45 PM EDT Office Visit [facility] [address] [facility] [address] [place] [address] 11/28/2024 2:45 PM EDT Appointment [facility] [address] [place] [address] documented as of this encounter Procedures Procedure Name Priority Date/Time Associated Diagnosis Comments [facility] Routine 10/25/2024 2:00 PM EDT History of IUFD documented in this encounter Results * [facility] (10/25/2024 2:00 PM EDT) Anatomical Region Laterality Modality Ultrasound 10/25/2024 1:37 PM EDT Narrative 10/25/2024 2:13 PM EDT PAT NAME: SANDEEP BRITO MED REC#: [id number] DA: [id number] PAT GEND: F PAT TYPE: O EXAM TED: [id number] REF PHYS HARINI MONTEZ Comparison Studies The [...] prior assessment 28 w + 0 d ORHINI by prior assessment: 01/17/2025 Ultrasound examination on: [...] EFW (oz) 11 oz EFW by: Hadlock (FWN-RO-LU-FL) Extended Cav. septi pel. tr 5.8 mm Internal Control Specialist 6.4 mm CM 6.6 mm 47% Nicolaides [...] Normal Heart / Thorax 3-vessel view: Normal 7-pzdlgk-dbeqemo view: normal Cord insertion: Normal Stomach: Appears [...] 1 week given size. 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 MO BMI 42. H/O seizures. Previous child with cerebralpalsy. Maternal Assessment Fmjbum006 cm Height (ft)5 ft Height (in)1 in Zclbyi584 kg Weight (lb)221 lb BMI42.27 kg/m Method ======= Transabdominal ultrasound examination. View: Suboptimal view: limited byfetal position ========= Cummins . Number of fetuses: 1 Dating ====== Method of dating:based on stated ROHINI GA by prior ayzyuqxwbl67 w + 0 d ROHINI by prior [...] Standard BPD74.8 mm 30w 0d 92% Hadlock GAX947.5 mm 32w 6d >99% Sindy HC280.1 mm 30w 5d 92% Hadlock Cerebellum tr34.6 mm 29w 0d 79% Hill AC278.9 mm 32w 0d >99% Hadlock Femur57.0 mm 29w 6d 86% Hadlock Nebgedt20.4 mm 29w 0d 72% Sindy HC / AC1.00 EFW1,686 g 30w 5d >99% Hadlock EFW (lb)3 lb EFW (oz)11 oz EFW by:Hadlock (YNF-FO-OT-FL) Extended Cav. septi pel. tr5.8 mm Vp6.4 mm CM6.6 mm 47% Nicolaides Head / Face / Neck Cephalic index0.74 6% Nicolaides Extremities / Bony Struc FL / BPD0.76 FL / HC0.20 FL / AC0.20 Other Structures MCR373 bpm General Evaluation Cardiac activity present. FHR [...] LVOT view:Normal Heart / Thorax 3-vessel view:Normal 6-zxaprq-bkpopyd view:normal Cord insertion:Normal Stomach:Appears normal Kidneys:Appears normal Bladder:Appears normal Gender:female Wants to know gender:yes Maternal Structures Uterus / Cervix Cervix:Visualized Approach:Transabdominal Cervical rolony81.5 mm Doppler Arterial Umbilical A PI0.87 20% [...] x 1 week given size. Coding ======= Description:77781-54 Follow Up Contour Sander: RT Lashon Wolf , RDMS Physician: Deven Chinchilla MD, FACOG Electronically signed by: Deven Chinchilla MD, FACOG at: 14:13 us Shameka Chandler MD IMG US ORDERABLES Final Result documented in this encounter Visit Diagnoses Diagnosis History of IUFD documented in this encounter Care Teams Security Incident Handler Relationship Specialty Start Date End Date Loan Vick MD [address] [place] [address] PCP - General Family Medicine 08/23/24 documented as of this encounter
--- OUTSIDE RECORDS SUMMARY | 2024-10-25 14:45 | XMS_ITS | Encounter Summary ---
[facility] Organization [facility] Address [address] [place] [phone] Care Team Providers Care Material Coordinator Name Role Phone Loan Vick MD Primary Care Provider +1- [phone] Reason for Referral * Diagnostic Imaging (Routine) - Authorized Specialty Diagnoses / Procedures Referred By Contact Referred To Contact Obstetrics and Gynecology Diagnoses History of IUFD Procedures [facility] Deven Chinchilla MD [address] [facility] [address] [place] [address] Phone: tel: fax: [facility] MATERNAL MEDICINE [address] [facility] [address] [place] [address] Phone: tel: fax: Referral ID Status Reason Start Date Expiration Date V isits Requested Visits Authorized [id number] Authorized 10/25/2024 01/24/2026 2 2 Reason for Visit * Reason Comments hx 39 week IUFD; MO; hx seizures; prev. child with CP Encounter Details Date Type Department Care Team (Late Contact Info) Description 10/25/2024 2:45 PM EDT Office Visit [facility] MATERNAL MEDICINE [address] [facility] [address] [place] [phone] Deven Chinchilla MD [address] [facility] [address] [place] [address] History of IUFD (Primary Dx) Social History [...] to take to her appointment with primary SUPERVISOR WHEEL SHOP next week. Patient reports history of decreasedfetal movement for the past day or so though has felt some movement. movement noted on ultrasound today. We discussed careful return precautions regarding decreased movement and to reportto primary SUPERVISOR WHEEL SHOP if decreased movement has occurred. Follow Up [...] Deven Chinchilla MD, FACOG Maternal Medicine, [facility] * Deven Chinchilla MD - [...] to take to her appointment with primary SUPERVISOR WHEEL SHOP next week. Patient reports history of decreasedfetal movement for the past day or so though has felt some movement. movement noted on ultrasound today. We discussed careful return precautions regarding decreased movement and to reportto primary SUPERVISOR WHEEL SHOP if decreased movement has occurred. documented in this encounter Plan of Treatment Upcoming Encounters Date Type Department Care Team (Late st Contact Info) Description 11/28/2024 2:45 PM EDT Office Visit [facility] MATERNAL MEDICINE [address] [place] [address] [address] [place] [address] 11/28/2024 2:45 PM EDT Appointment [facility] [address] [place] [address] Scheduled Orders Name Type Priority Associated Diagnoses Orde r Schedule [facility] Imaging Routine History of IUFD Every 4 Weeks for 2 Occurrences starting 10/25/2024 until 10/25/2025 documented as of this encounter Visit Diagnoses Diagnosis History of IUFD- Primary documented in this encounter Care Teams Material Coordinator Relationship Specialty Start Date End Date Loan Vick MD [address] [place] [address] PCP - General Family Medicine 08/23/24 documented as of this encounter
--- OUTSIDE RECORDS SUMMARY | 2024-11-23 11:26 | XMS_ITS | Clinical Summary ---
Author Organization [facility] Address [address] [place] [address] Care Team Providers Care Livestock Brands Inspector Name Role Phone Loan Vick MD Primary Care Provider +1- [phone] Allergies Active Allergy Reactions Criticality Noted Date [...] to take to her appointment with primary CHARGING BOARD OPERATOR next week. Patient reports history of decreased movement for the past day or so though has felt some movement. movement noted on ultrasound today. We discussed careful return precautions regarding decreased movement and to report to primary CHARGING BOARD OPERATOR if decreased movement has occurred. Assessment & Plan (08/25/2024 8:31 PM EDT): Patient previously seen by [facility] for preconception consultation (see note by [...] [facility] [address] [facility] [place] [address] [place] [phone] Deven Chinchilla MD History of IUFD (Primary Dx) 10/25/2024 1:26 PM EDT - 10/25/2024 11:59 PM EDT Hospital Encounter [facility] US PER DIAG CTR [address] [place] [address] Shameka Chandler MD History of IUFD Discharge Disposition: Home or Self Care 10/25/2024 Travel 09/27/2024 3:15 PM EDT Office Visit [facility] [address] [facility] [address] [place] [phone] Shameka Chandler MD History of IUFD (Primary Dx) 09/27/2024 2:40 PM EDT - 09/27/2024 11:59 PM EDT Hospital Encounter [facility] US PER DIAG [facility] [address] [place] [address] Shameka Chandler MD History of IUFD Discharge Disposition: Home or Self Care 09/27/2024 Travel 08/23/2024 12:30 PM EDT Office Visit [facility] [address] [place] [address] [phone] Shameka Chandler MD History of IUFD (Primary Dx) 08/23/2024 11:26 AM EDT - 08/23/2024 11:59 PM EDT Hospital Encounter [facility] PER DIAG CTR [address] [place] [address] Harini Gilbert DO History of [...] Description 11/28/2024 2:45 PM EDT Office Visit [facility] MAT[facility]NAL [facility]ICINE [address] [address] 11/28/2024 2:45 PM EDT Appointment [facility] PER [facility]AG [facility] [address] [place] [address] Health Maintenance Due Date Last Done Comments Annual Gynecologic Pelvic an d Breast Exam 1998 HPV VACCINES (1 - 3-dose series) 2013 Pneumococcal Vaccine 0-49 (1 of 2 - PCV) 2017 PAP SMEAR 05/12/2023 05/12/2020 ANNUAL PHYSICAL 11/09/2023 COVID-19 Vaccine (3 - 2023-2 5 season) 2023 05/27/2020, 04/29/2020 RSV Vaccine - Adults (1 - Ri sk 1-dose series) 12/17/2024 INFLUENZA VACCINE 01/16/2025 04/08/2023, , 03/06/2019, Additional history exists TDAP/TD VACCINES (4 - Td or Tdap) 06/20/2033 06/21/2023, 09/04/2021, 12/09/2009 HEPATITIS C SCREENING Completed 01/27/2024 Procedures Procedure Name Priority Date/Time Associated Diagnosis Comments [facility] Routine 10/25/2024 2:00 PM EDT History of IUFD [facility] Routine 09/27/2024 3:24 PM EDT History of IUFD [facility] Routine 08/23/2024 1:12 PM EDT History of stillbirth Family history of cerebral palsy , unspecified gestational age from Last 3 Months Results * [facility] (10/25/2024 2:00 PM EDT) Only the most recent of3 resultswithin the time period is included. Anatomical Region Laterality Modality Ultrasound 10/25/2024 1:37 PM EDT Narrative 10/25/2024 2:13 PM EDT PAT NAME: SANDEEP BRITO MED REC#: [id number] DA: 2000 PAT GEND: F PAT TYPE: O EXAM TED: [id number] REF PHYS HARINI GILBERT Comparison Studies The [...] EFW (oz) 11 oz EFW by: Hadlock ([id number]) Extended Cav. septi pel. tr 5.8 mm Bladder Changer 6.4 mm CM 6.6 mm 47% Nicolaides [...] Normal Heart / Thorax 3-vessel view: Normal 5-idftxq-oymihyl view: normal Cord insertion: Normal Stomach: Appears [...] 1 week given size. Coding ======= Description: 97305-70 Follow Up Molder Operator: RT Lashon Wolf , [place] Physician: Deven Chinchilla MD, FACOG Electronically signed by: Deven Chinchilla MD, FACOG at: 14:13 Procedure Note Deven Chinchilla MD - 10/25/2024 PAT NAME: SANDEEP BRITO MED REC#: [id number] DA: 2000 PAT GEND: F PAT TYPE: O EXAM TED: [id number] REF PHYS HARINI GILBERT Comparison Studies The findings of this study are compared to the prior ultrasound studydated 09/27/24 Patient Status Outpatient Indication ======== 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 MO BMI 42. H/O seizures. Previous child with cerebralpalsy. Maternal Assessment Ineiut526 cm Height (ft)5 ft Height (in)1 in Bzdbjm656 kg Weight (lb)221 lb BMI42.27 kg/m Method ======= Transabdominal ultrasound examination. View: Suboptimal view: limited byfetal position ========= Cummins . Number of fetuses: 1 Dating ====== Method of dating:based on stated ROHINI GA by prior [id number] w + 0 d ROHINI by prior assessment:01/17/2025 Ultrasound examination on:10/25/2024 GA by U/S based upon:AC, BPD, Femur, HC GA by U/S30 w + 5 d ROHINI by U/S:12/29/2024 Previous dating:based on stated ROHINI, selected on 09/27/2024 Agreed ROHINI of previous datin01/17/2025 Assigned:based on stated ROHINI, selected on 10/25/2024 Assigned GA28 w + 0 d Assigned ROHINI:01/17/2025 [id number] d Biometry Standard BPD74.8 mm 30w 0d 92% Hadlock ADE293.5 mm 32w 6d >99% Sindy HC280.1 mm 30w 5d 92% Hadlock Cerebellum tr34.6 mm 29w 0d 79% Hill AC278.9 mm 32w 0d >99% Hadlock Femur57.0 mm 29w 6d 86% Hadlock Hpmtbfk65.4 mm 29w 0d 72% Sindy HC / AC1.00 EFW1,686 g 30w 5d >99% Hadlock EFW (lb)3 lb EFW (oz)11 oz EFW by:Hadlock ([id number]) Extended Cav. septi pel. tr5.8 mm Vp6.4 mm CM6.6 mm 47% Nicolaides Head / Face / Neck Cephalic index0.74 6% Nicolaides Extremities / Bony Struc FL / BPD0.76 FL / HC0.20 FL / AC0.20 Other Structures UHK448 bpm General Evaluation Cardiac activity present. FHR [...] LVOT view:Normal Heart / Thorax 3-vessel view:Normal 0-svspyp-fpgixhh view:normal Cord insertion:Normal Stomach:Appears normal Kidneys:Appears normal [...] x 1 week given size. Coding ======= Description:96280-90 Follow Up Molder Operator: RT Lashon Wolf , [facility] Physician: Deven Chinchilla MD, FACOG Electronically signed by: Deven Chinchilla MD, FACOG at: 14:13 us Shameka Chandler MD [facility] US ORDERABLES Final Result from Last 3 Months Insurance [employer] Care Teams Livestock Brands Inspector Relationship Specialty Start Date End Date Loan Vick MD [address] [place] [address] PCP - General Family Medicine 08/23/24
[2024-11-23 11:27] VITALS: BMI 40.0
--- OUTSIDE RECORDS SUMMARY | 2024-11-23 11:27 | XMS_ITS | Clinical Summary ---
Author Organization [facility] Address [address] [place] [address] Phone Care Team Providers Care Ad Terminal Makeup Operator Name Role Phone Loan Vick MD Primary Care Provider +1- [phone] Allergies Active Allergy Reactions Criticality Noted Date [...] inhibitors are contraindicated due to desire for clinical director - Discussed with Dr. Deven Chinchilla via phone who reminded that cholesterol is essential in and that high cholesterol for short time typically does not warrant treatment. 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 [address] Raquel Torres, PT Discharge Disposition: Home or Self Care 08/31/2024 12:23 PM EDT - 08/31/2024 11:59 PM EDT Hospital Encounter [address] [place] [address] Raquel Torres, PT Discharge Disposition: Home or Self Care 08/30/2024 Orders Only [facility] Physical [address] [place] [address] Raquel Torres, PT from Last 3 Months [...] (DALK) ; Surgeon: Armando Monreal MD; [facility]; Service: Ophthalmology Medical devices from this surgery are in the Medical Devices section. 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 COLONOSCOPY 08/07/2015 N/A COLONOSCOPY and ESOPHAGOGASTRODUODENOSCOPY with biopsy; Surgeon: Jamey Schwab MD; Location: [facility] ENDOSCOPY; Service: Endoscopy UPPER GASTROINTESTINAL ENDOSCOPY 08/07/2015 N/A Surgeon: Jamey Schwab MD; Location: [facility] ENDOSCOPY; Service: Endoscopy DENTAL SURGERY permanent retainer in mouth CATARACT REMOVAL 11/05/2015 Right RIGHT EYE CATARACT EXTRACTION WITH PHACOEMULSIFICATION AND INTRAOCULAR LENS WITH RIGHT EYE WOUND REVISION ; Surgeon: Armando Monreal MD; [facility]; Service: Ophthalmology Medical devices from this surgery are in the Medical Devices section. EYE SURGERY 11/05/2015 Right Surgeon: Armando Monreal MD; [facility]; Service: Ophthalmology Medical devices from this surgery are in the Medical Devices section. EYE SURGERY 02/24/2016 Right RIGHT EYE YAG LASER CAPSULOTOMY; Surgeon: Armando Monreal MD; [facility]; Service: Ophthalmology DILATION AND CURETTAGE OF UTERUS 09/16/2021 - 10/15/2021 CT NEEDLE BIOPSY LIVER 02/07/2024 CT NEEDLE BIOPSY LIVER 02/07/2024 Eduardo Betancourt MD [facility] CT Medical History Medical History Date [...] JULIO CESAR Medical Devices Implanted Type Area Manager Inspection Device Identifier Shelf Expiration Date Model / Serial / Lot Cornea Tissue - [id number] Implanted:Qty: 1 on 03/27/2014 by Armando Monreal MD at [facility] Right: Eye UNKNOWN 04/01/2014 [id number] / [id number] / Lens Intraocular Preloaded 19.0 Diopter - [id number] Implanted:Qty: 1 on 11/05/2015 by Armando Monreal MD at [facility] Right: Eye EL LAB:SURG 03/17/2018 [id number] / [id number] / Procedures Procedure Name Priority Date/Time Associated Diagnosis Comments SCANNED LABS 11/06/2024 11:04 PM EDT SCANNED LABS 10/24/2024 5:33 PM EDT GC CHLAMYDIA THIN PREP Routine 05/12/2020 11:00 AM EST Well adult exam POWERHOUSE ELECTRICIAN APPRENTICE CYTOLOGY REQUEST (PAP ONLY) Routine 05/12/2020 11:00 AM EST Well adult exam from Last 3 Months or Most Recently Relevant to Health Maintenance Results * SCANNED LABS (11/06/2024 11:04 PM EDT) Only the most recent of2 resultswithin the time period is included. 11/06/2024 11:0 4 PM EDT us Unknown Provider HEMATOLOGY ORDERABLES Final Res ult * POWERHOUSE ELECTRICIAN APPRENTICE CYTOLOGY REQUEST (PAP ONLY) (05/12/2020 11:00 AM EST) CASE REPORT Gynecologic Cytology Report Case: [id number] Authorizing Provider: Loan Vick MD Collected: 05/12/2020 1100 Ordering Location: [facility] Received: 05/12/2020 1100 First Screen: Leesa Jose, CT Specimen: LIQUID-BASED PAP - CERVICAL/ENDOCERV ICAL, Cervix, Endocervical 05/14/2020 10:48 AM EST [facility] PAP FINAL DIAGNOSIS Negative for intraepithelial lesion or malignancy 05/14/2020 10:48 AM [facility] at 1048 EST MICROSCOPIC DESCRIPTION Microscopic examination is performed and the findings corroborate the diagnosis 05/14/2020 10:48 AM EST [facility] PAP SMEAR ADEQUACY Satisfactory for evaluation 05/14/2020 10:48 AM EST [facility] ENDOCERVICAL T-ZONE Transformation zone absent. 05/14/2020 10:48 AM EST [facility] EMBEDDED IMAGES 10:48 AM [facility] PAP DISCLAIMER The Pap Smear is a screening test that aids in the detection of cervical cancer and cancer precursors. Both false positive and false negative results can occur. The test should be used at regular intervals, and positive results should be confirmed before definitive therapy. Processed using the ThinPrep Central Service Technician Automated cytology screening device (First30Days). 05/14/2020 10:48 AM EST [facility] Thin Prep ENDOCERVICAL STRUCTURE / Unknown 05/12/2020 11:00 AM EST 05/12/2020 11:00 AM EST us Loan Vick MD CYTOLOGY ORDERABLES Final Result [facility] [address] [place] [id number] * GC CHLAMYDIA THIN PREP (05/12/2020 11:00 AM EST) Chlamydia trachomatis Not Detected Not Detected 05/13/2020 5:39 PM EST [facility] Neisseria gonorrhoeae Not Detected Not Detected 05/13/2020 5:39 PM EST [facility] Thin Prep SPECIMEN FROM UTERINE CERVIX / Unknown 05/12/2020 11:00 AM EST 05/12/2020 11:00 AM EST Narrative [facility] - 05/13/2020 5:39 PM EST Testing methodology is presentation manager mediated amplification (TMA) using the Aptima Combo 2 assay from [employer]. A negative result does not completely rule [...] MICROBIOLOGY - GENERAL ORD ERABLES Final Result [facility] [address] , [place] [address] from Last 3 Months or Most Recently Relevant to Health Maintenance Insurance LAILA PPO ANTHEM PPO Care Teams Ad Terminal Makeup Operator Relationship Specialty Start Date End Date Loan Vick MD [address] [place] [address] PCP - General Family Medicine 03/23/16
--- OUTSIDE RECORDS SUMMARY | 2024-11-23 11:27 | XMS_ITS | Encounter Summary ---
Author Organization [place] [address] Care Team Providers Care Product Management Manager Name Role Phone Loan Vick MD Primary Care Provider +1- [phone] Encounter Details Date Type Department Care Team (Late st Contact Info) Description 08/30/2024 Orders Only [facility] [address] [facility] [place] [address] Raquel Torres, PT [address] [place] [address] Social History Tobacco Use Types [...] on filedocumented in this encounter Care Teams Product Management Manager Relationship Specialty Start Date End Date Loan Vick MD [address] [place] [address] PCP - General Family Medicine 03/23/16 documented as of this encounter
--- OUTSIDE RECORDS SUMMARY | 2024-11-23 11:27 | XMS_ITS | Encounter Summary ---
[facility] Address [address] [place] [address] Care Team Providers Care Computer Numerical Control Machinist Name Role Phone Loan Vick MD Primary Care Provider +1- [phone] Encounter Details Date Type Department Care Team [...] Description 11/28/2024 2:45 PM EDT Office Visit [facility] MATERNAL MEDICINE [address] [facility] [address] [place] [address] 11/28/2024 2:45 PM EDT Appointment [facility] [address] [place] [address] documented as of this encounter Visit Diagnoses Not on filedocumented in this encounter Care Teams Computer Numerical Control Machinist Relationship Specialty Start Date End Date Loan Vick MD [address] [place] [address] PCP - General Family Medicine 08/23/24 documented as of this encounter
--- OUTSIDE RECORDS SUMMARY | 2024-11-23 11:27 | XMS_ITS | Encounter Summary ---
Author Organization [place] Address [facility] [place] [address] Care Team Providers Care Review Analyst Name Role Phone Loan Vick MD Primary Care Provider +1- [phone] Encounter Details Date Type Department Care Team (Latest Contact Info) Description 01/25/2017 Lab Requisition [facility] [address] [place] [id number] Claudia Granado, KJ Encounter for screening for [...] Detected Not Detected 01/26/2017 11:41 AM EDT [facility] Neisseria gonorrhoeae Not Detected Not Detected 01/26/2017 11:41 AM EDT [facility] Swab (specimen) 01/25/2017 1 0:19 AM EDT 01/25/2017 5:18 PM EDT Narrative [facility] - 01/26/2017 11:41 AM EDT Testing methodology is community arts officer mediated amplification (TMA) using the Aptima Combo 2 assay from [employer]. A negative result does not completely rule [...] characteristics of this test were validated by [facility] laboratory. This assay is FDA cleared to test the following specimens: clinician-collected endocervical, vaginal and male urethral swab specimens, patient collected vaginal specimens within a clinic setting, Thin Prep Specimens in PreservCyt Solution, and first-stream, unpreserved male urine specimens. Testing on female urine is not FDA approved by this methodology, but has been developed and validated by the [facility] laboratory. Detailed methodology is available upon request. Claudia Granado APRN MICROBIOLOGY - GENERAL ORD ERABLES Final Result [facility] [address] [place] [address] documented in this encounter Visit Diagnoses Diagnosis Encounter for screening for infections with predominantly sexual mode of transmission Screening examination for venereal disease documented in this encounter Additional Health Concerns Infection Onset Date Last Indicated Resolved Time COVID-19 03/30/2020 03/30/2020 04/19/2020 10:1 2 PM EST R/O COVID-19 12/25/2020 12/25/2020 12/26/2020 12:2 8 AM EDT R/O COVID-19 05/11/2021 05/11/2021 05/12/2021 5:0 4 PM EST COVID-19 05/11/2021 05/11/2021 05/31/2021 10:1 2 PM EST INFLUENZA 12/10/2022 12/10/2022 12/24/2022 10:1 2 PM EDT documented as of this encounter Care Teams Review Analyst Relationship Specialty Start Date End Date Loan Vcik MD [address] [place] [address] PCP - General Family Medicine 03/23/16 documented as of this encounter
--- OUTSIDE RECORDS SUMMARY | 2024-11-23 11:27 | XMS_ITS | Encounter Summary ---
[facility] Address [address] [place] [id number] Care Team Providers Care Cable Way Operator Name Role Phone Loan Vick MD Primary Care Provider +1- [phone] Encounter Details Date Type Department Care Team [...] Description 11/28/2024 2:45 PM EDT Office Visit [facility] MATERNAL MEDICINE [address] [facility] [address] [place] [address] 11/28/2024 2:45 PM EDT Appointment [facility] PER DI[facility] [address] [place] [address] documented as of this encounter Visit Diagnoses Not on filedocumented in this encounter Care Teams Cable Way Operator Relationship Specialty Start Date End Date Loan Vick MD [address] [place] [address] PCP - General Family Medicine 08/23/24 documented as of this encounter
--- OUTSIDE RECORDS SUMMARY | 2024-11-23 11:27 | XMS_ITS | Encounter Summary ---
Author Organization [place] [address] Care Team Providers Care Finisher Special Stocks Name Role Phone Loan Vick MD Primary Care Provider +1- [phone] Reason for Visit * Reason Comments Medication Refill Encounter Details Date Type Department Care Team (Late st Contact Info) Description 04/21/2018 Refill [facility] [address] [facility] [place] [address] Loan Vick MD [address] [place] [address] Medication Refill Social History Tobacco [...] documented as of this encounter Care Teams Finisher Special Stocks Relationship Specialty Start Date End Date Loan Vick MD [address] [place] [phone] PCP - General Family Medicine 03/23/16 documented as of this encounter
--- NOTE | 2024-11-23 11:29 | US_ITS ---
PROCEDURE: US OB BIOPHYSICAL PROFILE CLINICAL INDICATION: FAILED NST IN THE OFFICE COMPARISON: US US OB <= 14 WEEKS FETUS from 06/04/2024 US US OB BIOPHYSICAL PROFILE from 10/29/2024 US US OB BIOPHYSICAL PROFILE from 11/14/2024 FINDINGS: Transabdominal sonographic images of the uterus were obtained. From her established due date she is 31weeks 6days. The following parameters are obtained: Viable Fetus in the cephalic presentation with a posterior placenta grade 2. Cervix measures 3.87 cm Measurements: heart Rate = 133bpm Amniotic fluid index: 10.84cm, MVP 3.30 cm Qualitative AFV:2 Breathing movements: 2 Gross Body Movements: 2 Tone: 2 Biophysical profile score: 8 No obvious anomalies evident.Kidneys, profile, stomach, bladder, four-chamber heart, three-vessel cord appear normal. IMPRESSION: 1. Viable fetus in the cephalic presentation with a posterior placenta grade 2. 2. The fluid is within normal limits with an amniotic fluid index 10.84 cm, MVP 3.30 cm. 3. Biophysical profile is 8/8 with good breathing movement and movement seen. 4. Limited anatomical scan appears normal. Dictated by: Driss Rice MD 11/23/2024 12:40 Driss Rice MD in OV 11/23/2024 12:40
[2024-11-23 11:41] VITALS: BMI 40.0
== END 2024-11-23 13:15 | disposition home or self-care (01) ==
LOC: OBOUT 11:22 → OB 11:23
PROVIDERS: PCP Family Medicine; Visit Provider Obstetrics & Gynecology
DX: O28.8 Other abnormal findings on antenatal screening of mother (principal); Z3A.31 31 weeks gestation of pregnancy
CPT/HCPCS: 59025; 76819; 99212; G0463

== ENCOUNTER 2024-12-06 10:39 | Outpatient (CLI) | payer BC, SELFPAY ==
--- OUTSIDE RECORDS SUMMARY | 2024-10-25 13:26 | XMS_ITS | Encounter Summary ---
Author Organization [facility] Address [address] [place] [id number] Care Team Providers Care Sprinkler Tender Name Role Phone Loan Vick MD Primary Care Provider +1- [phone] Reason for Referral * Diagnostic Imaging (Routine) - Closed Specialty Diagnoses / Procedures Referred By Contac t Referred To Contact Radiology Diagnoses History of IUFD Procedures US [facility] Diagnostic [place] Shameka Chandler MD [address] [place] [address] Phone: tel: fax: Referral ID Status Reason Start Date Expiration Date Visits Re quested Visits Authorized Closed 10/02/2024 01/01/2026 1 1 Reason for Visit * Diagnostic Imaging (Routine) - Closed Specialty Diagnoses / Procedures Referred By Kennedy messina Referred To Contact Radiology Diagnoses History of IUFD Procedures US [facility] Diagnostic [place] Shameka Chandler MD [address] [address] Phone: tel: fax: Referral ID Status Reason Start Date Expiration Date Visits Re quested Visits Authorized Closed 10/02/2024 01/01/2026 1 1 Encounter Details Date Type Department Care Team (Late st Contact Info) Description 10/25/2024 1:26 PM EDT - 10/25/2024 11:59 PM EDT Hospital Encounter [facility] [address] [facility] [place] [phone] Shameka Chandler MD [address] [facility] [address] [place], [place] [id number] History of IUFD Discharge Disposition: Home or [...] Name Priority Date/Time Associated Diagnosis Comments [facility] Routine 10/25/2024 2:00 PM EDT History of IUFD documented in this encounter Results * [facility] (10/25/2024 2:00 PM EDT) Anatomical Region Laterality Modality Ultrasound 10/25/2024 1:37 PM EDT Narrative 10/25/2024 2:13 PM EDT PAT NAME: SANDEEP BRITO MED REC#: [id number] DA: [id number] PAT GEND: F PAT TYPE: O EXAM TED: [id number] REF PHYS HARINI MONTEZ Comparison Studies The [...] EFW (oz) 11 oz EFW by: Hadlock (HGA-FJ-OS-FL) Extended Cav. septi pel. tr 5.8 mm Erp Engineer 6.4 mm CM 6.6 mm 47% Nicolaides [...] Normal Heart / Thorax 3-vessel view: Normal 3-bgzflw-uvytvmp view: normal Cord insertion: Normal Stomach: Appears [...] 1 week given size. Coding ======= Description: 45096-92 Follow Up Agricultural Extension Agent: RT Lashon Wolf , [facility] Physician: Deven Chinchilla MD, FACOG Electronically signed by: Deven Chinchilla MD, FACOG at: 14:13 Procedure Note Deven Chinchilla MD - 10/25/2024 PAT NAME: SANDEEP BRITO MED REC#: [id number] DA: [id number] PAT GEND: F PAT TYPE: O EXAM TED: [id number] REF PHYS MELIDA HARINI Comparison Studies The findings of this study are compared to the prior ultrasound studydated 09/27/24 Patient Status Outpatient Indication ======== 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 MO BMI 42. H/O seizures. Previous child with cerebralpalsy. Maternal Assessment Lfahaw851 cm Height (ft)5 ft Height (in)1 in Kxbxji249 kg Weight (lb)221 lb BMI42.27 kg/m Method ======= Transabdominal ultrasound examination. View: Suboptimal view: limited byfetal position ========= Cummins . Number of fetuses: 1 Dating ====== Method of dating:based on stated ROHINI GA by prior nzernlrlnd98 w + 0 d ROHINI by prior assessment:01/17/2025 Ultrasound examination on:10/25/2024 GA by U/S based upon:AC, BPD, Femur, HC GA by U/S30 w + 5 d ROHINI by U/S:12/29/2024 Previous dating:based on stated ROHINI, selected on 09/27/2024 Agreed ROHINI of previous datin01/17/2025 Assigned:based on stated ROHINI, selected on 10/25/2024 Assigned GA28 w + 0 d Assigned ROHINI:01/17/2025 czjkam127 d Biometry Standard BPD74.8 mm 30w 0d 92% Hadlock HLD914.5 mm 32w 6d >99% Sindy HC280.1 mm 30w 5d 92% Hadlock Cerebellum tr34.6 mm 29w 0d 79% Hill AC278.9 mm 32w 0d >99% Hadlock Femur57.0 mm 29w 6d 86% Hadlock Oeqzbes59.4 mm 29w 0d 72% Sindy HC / AC1.00 EFW1,686 g 30w 5d >99% Hadlock EFW (lb)3 lb EFW (oz)11 oz EFW by:Hadlock (ZOX-GI-WV-FL) Extended Cav. septi pel. tr5.8 mm Vp6.4 mm CM6.6 mm 47% Nicolaides Head / Face / Neck Cephalic index0.74 6% Nicolaides Extremities / Bony Struc FL / BPD0.76 FL / HC0.20 FL / AC0.20 Other Structures CGI163 bpm General Evaluation Cardiac activity present. FHR [...] LVOT view:Normal Heart / Thorax 3-vessel view:Normal 3-cwizri-lltprcp view:normal Cord insertion:Normal Stomach:Appears normal Kidneys:Appears normal Bladder:Appears normal Gender:female Wants to know gender:yes Maternal Structures Uterus / Cervix Cervix:Visualized Approach:Transabdominal Cervical cnjods58.5 mm Doppler Arterial Umbilical A PI0.87 20% [...] x 1 week given size. Coding ======= Description:26449-46 Follow Up Agricultural Extension Agent: RT Lashon Wolf , RDMS Physician: Deven Chinchilla MD, ZULEMAOG Electronically signed by: Deven Chinchilla MD, ZULEMAOG at: 14:13 us Shameka Chandler MD IMG US ORDERABLES Final Result documented in this encounter Visit Diagnoses Diagnosis History of IUFD documented in this encounter Care Teams Sprinkler Tender Relationship Specialty Start Date End Date Loan Vick MD [address] [place] [address] PCP - General Family Medicine 08/23/24 documented as of this encounter
--- OUTSIDE RECORDS SUMMARY | 2024-10-25 14:45 | XMS_ITS | Encounter Summary ---
[facility] Address [address] [place] [id number] Care Team Providers Care Peanut Butter Maker Name Role Phone Loan Vick MD Primary Care Provider +1- [phone] Reason for Referral * Diagnostic Imaging (Routine) - Authorized Specialty Diagnoses / Procedures Referred By Contact Referred To Contact Obstetrics and Gynecology Diagnoses History of IUFD Procedures [facility] Deven Chinchilla MD [address] [facility] [address] [place] [address] Phone: tel: fax: [facility]NAL MEDICINE [address] [facility] [address] [place] [address] Phone: tel: fax: Referral ID Status Reason Start Date Expiration Date V isits Requested Visits Authorized [id number] Authorized 10/25/2024 01/24/2026 2 2 Reason for Visit * Reason Comments hx 39 week IUFD; MO; hx seizures; prev. child with CP Encounter Details Date Type Department Care Team (Late Contact Info) Description 10/25/2024 2:45 PM EDT Office Visit [facility] MATERNAL MEDICINE [address] [facility] [address] [place] [phone] Deven Chinchilla MD [address] [facility] [address] [place] [address] History of IUFD (Primary Dx) Social History [...] to take to her appointment with primary NETWORK/TELECOM ENGINEER next week. Patient reports history of decreasedfetal movement for the past day or so though has felt some movement. movement noted on ultrasound today. We discussed careful return precautions regarding decreased movement and to reportto primary NETWORK/TELECOM ENGINEER if decreased movement has occurred. Follow Up [...] CVS. Deven Chinchilla MD, FACOG Maternal Medicine, [facility] * Deven Chinchilla MD - 10/25/2024 1:57 [...] to take to her appointment with primary NETWORK/TELECOM ENGINEER next week. Patient reports history of decreasedfetal movement for the past day or so though has felt some movement. movement noted on ultrasound today. We discussed careful return precautions regarding decreased movement and to reportto primary NETWORK/TELECOM ENGINEER if decreased movement has occurred. documented in this encounter Plan of Treatment Scheduled Orders Name Type Priority Associated Diagnoses Orde r Schedule [facility] Imaging Routine History of IUFD Every 4 Weeks for 2 Occurrences starting 10/25/2024 until 10/25/2025, 1 completed documented as of this encounter Results * [facility] (11/28/2024 2:55 PM EDT) Anatomical Region Laterality Modality Ultrasound 11/28/2024 2:31 PM EDT Narrative 11/28/2024 3:06 PM EDT PAT NAME: SANDEEP BRITO MED REC#: [id number] DA: [id number] PAT GEND: F PAT TYPE: O EXAM TED: [id number] REF PHYS HARINI GILBERT Comparison Studies The [...] EFW (oz) 15 oz EFW by: Hadlock ([id number]) Extended Cav. septi pel. tr 5.7 mm Internal Affairs Commander 6.3 mm CM 5.7 mm 10% Nicolaides [...] 4 weeks before IOL. Coding ======= Description: 12696-18 Follow Up Ultrasound Description: 56110-09 BPP without NST Chemistry Faculty Member: Kristine Camp RDMS Physician: Deven Chinchilla MD, FACOG Electronically signed by: Deven Chinchilla MD, FACOG at: 15:06 Procedure Note Deven Chinchilla MD - 11/28/2024 PAT NAME: SANDEEP BRITO MED REC#: [id number] DA: 2000 PAT GEND: F PAT TYPE: O EXAM TED: [id number] REF PHYS HARINI GILBERT Comparison Studies The findings of this study are compared to the prior ultrasound studydated 10/25/24 Patient Status Outpatient Indication ======== Gestational diabetes. 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 Previous child with cerebral palsy.Hx seizures. Morbid obesity BMI 43. Maternal Assessment Mumdoc458 cm Height (ft)5 ft Height (in)1 in Tzsczx472 kg Weight (lb)223 lb BMI42.65 kg/m Method ======= Transabdominal ultrasound examination. View: Adequate view ========= Cummins . Number of fetuses: 1 Dating ====== Method of dating:based on stated ROHINI GA by prior [id number] w + 6 d ROHINI by prior assessment:01/17/2025 Ultrasound examination on:11/28/2024 GA by U/S based upon:AC, BPD, Femur, HC GA by U/S35 w + 3 d ROHINI by U/S:12/30/2024 Previous dating:based on stated ROHINI, selected on 10/25/2024 Agreed ROHINI of previous datin01/17/2025 Assigned:based on stated ROHINI, selected on 11/28/2024 Assigned GA32 w + 6 d Assigned ROHINI:01/17/2025 [id number] d Biometry Standard BPD88.3 mm 35w 5d 98% Hadlock EES125.5 mm 38w 2d >99% Sindy HC322.8 mm 36w 3d 94% Hadlock Cerebellum tr43.7 mm 34w 0d 65% Hill AC322.9 mm 36w 1d >99% Hadlock Femur64.7 mm 33w 3d 53% Hadlock Udnhlnu83.8 mm 32w 3d 49% Sindy HC / AC1.00 EFW2,683 g 35w 3d 97% Hadlock EFW (lb)5 lb EFW (oz)15 oz EFW by:Hadlock ([id number]-TK-GU-FL) Extended Cav. septi pel. tr5.7 mm Vp6.3 mm CM5.7 mm 10% Nicolaides Head / Face / Neck Cephalic index0.78 33% Nicolaides Extremities / Bony Struc FL / BPD0.73 FL / HC0.20 FL / AC0.20 Other Structures RDU623 bpm General Evaluation Cardiac activity present. FHR [...] in 4 weeks before IOL. Coding ======= Description:72871-91 Follow Up Ultrasound Description:18230-33 BPP without NST Chemistry Faculty Member: Kristine Camp RDAR Physician: Deven Chinchilla MD, FACOG Electronically signed by: Deven Chinchilla MD, FACOG at: 15:06 us Deven Chinchilla MD IMG US ORDERABLES Final Result documented in this encounter Visit Diagnoses Diagnosis History of IUFD- Primary documented in this encounter Care Teams Peanut Butter Maker Relationship Specialty Start Date End Date Loan Vick MD [address] [place] [address] PCP - General Family Medicine 08/23/24 documented as of this encounter
--- OUTSIDE RECORDS SUMMARY | 2024-11-28 13:50 | XMS_ITS | Encounter Summary ---
[facility] Organization [facility] Address [address] [place] [id number] Care Team Providers Care Hydroelectric Plant Technician Name Role Phone Loan Vick MD Primary Care Provider +1- [phone] Reason for Visit * Diagnostic Imaging (Routine) - Authorized Specialty Diagnoses / Procedures Referred By Contact Referred To Contact Obstetrics and Gynecology Diagnoses History of IUFD Procedures [facility] Chinchilla, Deven Morrissey MD [address] [facility] [address] [place] [address] Phone: tel: fax: [facility] [address] [facility] [address] [place] [address] Phone: tel: fax: Referral ID Status Reason Start Date Expiration Date V isits Requested Visits Authorized [id number] Authorized 10/25/2024 01/24/2026 2 2 Encounter Details Date Type Department Care Team (Latest Contact Info) Description 11/28/2024 1:50 PM EDT - 11/28/2024 11:59 PM EDT Hospital Encounter [facility] US PER DIAG CTR [address] [place] [address] Harini Gilbert, DO [address] [facility] [address] [place], [place] [id number] Discharge Disposition: Home or Self Care Social [...] Procedure Name Priority Date/Time Associated Diagnosis Comments [facility] Routine 11/28/2024 2:55 PM EDT History of IUFD documented in this encounter Results * [facility] (11/28/2024 2:55 PM EDT) Anatomical Region Laterality Modality Ultrasound 11/28/2024 2:31 PM EDT Narrative 11/28/2024 3:06 PM EDT PAT NAME: SANDEEP BRITO MED REC#: [id number] DA: [id number] PAT GEND: F PAT TYPE: O EXAM TED: [id number] REF PHYS HARINI GILBERT Comparison Studies The [...] EFW (oz) 15 oz EFW by: Hadlock (AWM-UO-MI-FL) Extended Cav. septi pel. tr 5.7 mm Test Tube Maker 6.3 mm CM 5.7 mm 10% Nicolaides [...] 4 weeks before IOL. Coding ======= Description: 42527-90 Follow Up Ultrasound Description: 14869-08 BPP without NST Clinical Law Professor: Kristine Camp RDMS Physician: Deven Chinchilla MD, FACOG Electronically signed by: Deven Chinchilla MD, FACOG at: 15:06 Procedure Note Deven Chinchilla MD - 11/28/2024 PAT NAME: SANDEEP BRITO MED REC#: [id number] DA: [id number] PAT GEND: F PAT TYPE: O EXAM TED: [id number] REF PHYS HARINI GILBERT Comparison Studies The findings of this study are compared to the prior ultrasound studydated 10/25/24 Patient Status Outpatient Indication ======== Gestational diabetes. 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 Previous child with cerebral palsy.Hx seizures. Morbid obesity BMI 43. Maternal Assessment Pyywdu894 cm Height (ft)5 ft Height (in)1 in Cirzfy780 kg Weight (lb)223 lb BMI42.65 kg/m Method ======= Transabdominal ultrasound examination. View: Adequate view ========= Cummins . Number of fetuses: 1 Dating ====== Method of dating:based on stated ROHINI GA by prior [id number] w + 6 d ROHINI by prior [...] Standard BPD88.3 mm 35w 5d 98% Hadlock QQR375.5 mm 38w 2d >99% Sindy HC322.8 mm 36w 3d 94% Hadlock Cerebellum tr43.7 mm 34w 0d 65% Hill AC322.9 mm 36w 1d >99% Hadlock Femur64.7 mm 33w 3d 53% Hadlock Yysoylt76.8 mm 32w 3d 49% Sindy HC / AC1.00 EFW2,683 g 35w 3d 97% Hadlock EFW (lb)5 lb EFW (oz)15 oz EFW by:Hadlock (MHR-PS-CE-FL) Extended Cav. septi pel. tr5.7 mm Vp6.3 mm CM5.7 mm 10% Nicolaides Head / Face / Neck Cephalic index0.78 33% Nicolaides Extremities / Bony Struc FL / BPD0.73 FL / HC0.20 FL / AC0.20 Other Structures YGU910 bpm General Evaluation Cardiac activity present. FHR [...] in 4 weeks before IOL. Coding ======= Description:35376-04 Follow Up Ultrasound Description:34528-71 BPP without NST Clinical Law Professor: Kristine Camp RDMI Physician: Deven Chinchilla MD, FACOG Electronically signed by: Deven Chinchilla MD, FACOG at: 15:06 us Deven Chinchilla MD IMG US ORDERABLES Final Result documented in this encounter Visit Diagnoses Not on filedocumented in this encounter Care Teams Hydroelectric Plant Technician Relationship Specialty Start Date End Date Loan Vick MD [address] [place] [address] PCP - General Family Medicine 08/23/24 documented as of this encounter
--- OUTSIDE RECORDS SUMMARY | 2024-11-28 14:45 | XMS_ITS | Encounter Summary ---
[facility] Address [address] [place] [address] Care Team Providers Care Pelt Grader Name Role Phone Loan Vick MD Primary Care Provider +1- [phone] Reason for Visit * Reason Comments hx 39 wk IUFD, MO, LGA, prev child CP, h x seizures Encounter Details Date Type Department Care Team (Late st Contact Info) Description 11/28/2024 2:45 PM EDT Office Visit [facility] MATERNAL MEDICINE [address] [facility] [address] [place] [address] Deven Chinchilla MD [address] [facility] [address] [place] [address] History of IUFD (Primary Dx); Insulin controlled [...] vaginal bleeding, leaking fluid. Patient reports occasional [place]-Morales contractions. Endorses normal movement. NIPT negative. Next [...] CVS. Deven Chinchilla MD, FACOG Maternal Medicine, [facility] documented in this encounter Plan of Treatment Not on file documented as of this encounter Visit Diagnoses Diagnosis History of IUFD- Primary Insulin controlled gestational diabetes mellitus (GDM) in third trimester documented in this encounter Care Teams Pelt Grader Relationship Specialty Start Date End Date Loan Vick MD [address] [place] [address] PCP - General Family Medicine 08/23/24 documented as of this encounter
--- OUTSIDE RECORDS SUMMARY | 2024-12-10 11:24 | XMS_ITS | Encounter Summary ---
Author Organization [facility] Address [address] [place] [address] Care Team Providers Care Solar Sales Specialist Name Role Phone Loan Vick MD Primary Care Provider +1- [phone] Encounter Details Date Type Department Care Team [...] on filedocumented in this encounter Care Teams Solar Sales Specialist Relationship Specialty Start Date End Date Loan Vick MD [address] [place], [place] [id number] PCP - General Family Medicine 08/23/24 documented as of this encounter
--- OUTSIDE RECORDS SUMMARY | 2024-12-10 11:24 | XMS_ITS | Encounter Summary ---
Author Organization [facility] Address [address] [place] [id number] Care Team Providers Care Director Of Hotel Name Role Phone Loan Vick MD Primary Care Provider +1- [phone] Reason for Visit * Reason Comments Med Refill Encounter Details Date Type Department Care Team (Late st Contact Info) Description 11/23/2024 Refill [facility] [address] [facility] [address] [place] [address] Deven Chinchilla MD [address] [facility] [address] [place] [address] Social History Tobacco Use Types Packs/Day Years [...] on filedocumented in this encounter Care Teams Director Of Hotel Relationship Specialty Start Date End Date Loan Vick MD [address] [place] [address] PCP - General Family Medicine 08/23/24 documented as of this encounter
--- OUTSIDE RECORDS SUMMARY | 2024-12-10 11:24 | XMS_ITS | Encounter Summary ---
Author Organization [facility] Address [address] [facility] [place] [address] Care Team Providers Care Full Time Babysitter Name Role Phone Loan Vick MD Primary Care Provider +1- [phone] Encounter Details Date Type Department Care Team (Latest Contact Info) Description 01/25/2017 Lab Requisition [facility] [address] [place] [id number] Claudia Granado, KJ Encounter for screening for [...] Detected Not Detected 01/26/2017 11:41 AM EDT [facility] Neisseria gonorrhoeae Not Detected Not Detected 01/26/2017 11:41 AM EDT [facility] Swab (specimen) 01/25/2017 1 0:19 AM EDT 01/25/2017 5:18 PM EDT Narrative [facility] - 01/26/2017 11:41 AM EDT Testing methodology is donkey engine firer/fireman mediated amplification (TMA) using the Aptima Combo 2 assay from [employer]. A negative result does not completely rule [...] characteristics of this test were validated by [facility] laboratory. This assay is FDA cleared to test the following specimens: clinician-collected endocervical, vaginal and male urethral swab specimens, patient collected vaginal specimens within a clinic setting, Thin Prep Specimens in PreservCyt Solution, and first-stream, unpreserved male urine specimens. Testing on female urine is not FDA approved by this methodology, but has been developed and validated by the [facility] laboratory. Detailed methodology is available upon request. Claudia Granado APRN MICROBIOLOGY - GENERAL ORD ERABLES Final Result [facility] [address] [place] [address] documented in this encounter Visit Diagnoses Diagnosis [...] documented as of this encounter Care Teams Full Time Babysitter Relationship Specialty Start Date End Date Loan Vick MD [address] [place] [address] PCP - General Family Medicine 03/23/16 documented as of this encounter
--- OUTSIDE RECORDS SUMMARY | 2024-12-10 11:24 | XMS_ITS | Encounter Summary ---
Author Organization [place] [address] Care Team Providers Care Recruiting Administrator Name Role Phone Loan Vick MD Primary Care Provider +1- [phone] Reason for Visit * Reason Comments Medication Refill Encounter Details Date Type Department Care Team (Late st Contact Info) Description 04/21/2018 Refill [facility] [address] [facility] [place] [address] Loan Vick MD [address] [place] [address] Medication Refill Social History Tobacco [...] documented as of this encounter Care Teams Recruiting Administrator Relationship Specialty Start Date End Date Loan Vick MD [address] [place] [phone] PCP - General Family Medicine 03/23/16 documented as of this encounter
--- OUTSIDE RECORDS SUMMARY | 2024-12-10 11:24 | XMS_ITS | Encounter Summary ---
Author Organization [place] [address] Care Team Providers Care Supervisor [address] Name Role Phone Loan Vick MD Primary Care Provider +1- [phone] Encounter Details Date Type Department Care Team (Late st Contact Info) Description 08/30/2024 Orders Only SE Physical Therapy [facility] [address] [facility] [place] [address] Raquel Torres, PT [address] [place] [address] Social History Tobacco Use Types [...] reach an ideal body weight General No Mraitza Cook RMA documented as of this encounter Visit Diagnoses Not on filedocumented in this encounter Care Teams Supervisor [address] Relationship Specialty Start Date End Date Loan Vick MD [address] [place] [address] PCP - General Family Medicine 03/23/16 documented as of this encounter
--- OUTSIDE RECORDS SUMMARY | 2024-12-10 11:24 | XMS_ITS | Clinical Summary ---
Author Organization [facility] Address [address] [place] [address] Care Team Providers Care Art Appraiser Name Role Phone Loan Vick MD Primary Care Provider +1- [phone] Allergies Active Allergy Reactions Criticality Noted Date [...] to take to her appointment with primary CHEF HEAD next week. Patient reports history of decreased movement for the past day or so though has felt some movement. movement noted on ultrasound today. We discussed careful return precautions regarding decreased movement and to report to primary CHEF HEAD if decreased movement has occurred. Assessment & [...] Description 11/28/2024 2:45 PM EDT Office Visit [facility] [address] [facility] [address] [place] [phone] Deven Chinchilla MD History of IUFD (Primary Dx); Insulin controlled gestational diabetes mellitus (GDM) in third trimester 11/28/2024 1:50 PM EDT - 11/28/2024 11:59 PM EDT Hospital Encounter [facility] PER DI[facility] [address] [place] [address] Harini Gilbert DO Discharge Disposition: Home or Self Care 11/28/2024 Travel 11/26/2024 Medication Therapy Management [facility] [address] [facility] [address] [address] [place] [phone] Deven Chinchilla MD 11/23/2024 Refill [facility] [address] [facility] [address] [place] [phone] Deven Chinchilla MD 10/25/2024 2:45 PM EDT Office Visit [facility] [address] [phone] Deven Chinchilla MD History of IUFD (Primary Dx) 10/25/2024 1:26 PM EDT - 10/25/2024 11:59 PM EDT Hospital Encounter [facility] [address] [place] [address] Shameka Chandler MD History of IUFD Discharge Disposition: Home or Self Care 10/25/2024 Travel 09/27/2024 3:15 PM EDT Office Visit [facility] [address] [address] Shameka Chandler MD History of IUFD (Primary Dx) 09/27/2024 2:40 PM EDT - 09/27/2024 11:59 PM EDT Hospital Encounter [facility] [address] [place] [address] Shameka Chandler MD History of [...] Procedure Name Priority Date/Time Associated Diagnosis Comments [facility] Routine 11/28/2024 2:55 PM EDT History of IUFD [facility] Routine 10/25/2024 2:00 PM EDT History of IUFD [facility] Routine 09/27/2024 3:24 PM EDT History of IUFD from Last 3 Months Results * [facility] (11/28/2024 2:55 PM EDT) Only the most recent of3 resultswithin the time period is included. Anatomical Region Laterality Modality Ultrasound 11/28/2024 2:31 PM EDT Narrative 11/28/2024 3:06 PM EDT PAT NAME: SANDEEP BRITO MED REC#: [id number] DA: [id number] PAT GEND: F PAT TYPE: O EXAM TED: [id number] REF PHYS HARINI GILBERT Comparison Studies The [...] EFW (oz) 15 oz EFW by: Hadlock ([id number]) Extended Cav. septi pel. tr 5.7 mm Floor Sander 6.3 mm CM 5.7 mm 10% Nicolaides [...] 4 weeks before IOL. Coding ======= Description: 29375-86 Follow Up Ultrasound Description: 67016-34 BPP without NST Hand Stonecutter: Kristine Camp RDMS Physician: Deven Chinchilla MD, FACOG Electronically signed by: Deven Chinchilla MD, FACOG at: 15:06 Procedure Note Deven Chinchilla MD - 11/28/2024 PAT NAME: SANDEEP BRITO MED REC#: [id number] DA: [id number] PAT GEND: F PAT TYPE: O EXAM TED: [id number] REF PHYS HARINI GILBERT Comparison Studies The findings of this study are compared to the prior ultrasound studydated 10/25/24 Patient Status Outpatient Indication ======== Gestational diabetes. 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 Previous child with cerebral palsy.Hx seizures. Morbid obesity BMI 43. Maternal Assessment Gjmpev446 cm Height (ft)5 ft Height (in)1 in Rurlzw881 kg Weight (lb)223 lb BMI42.65 kg/m Method ======= Transabdominal ultrasound examination. View: Adequate view ========= Cummins . Number of fetuses: 1 Dating ====== Method of dating:based on stated ROHINI GA by prior [id number] w + 6 d ROHINI by prior [...] Standard BPD88.3 mm 35w 5d 98% Hadlock GFY566.5 mm 38w 2d >99% Sindy HC322.8 mm 36w 3d 94% Hadlock Cerebellum tr43.7 mm 34w 0d 65% Hill AC322.9 mm 36w 1d >99% Hadlock Femur64.7 mm 33w 3d 53% Hadlock Lifnnkc30.8 mm 32w 3d 49% Sindy HC / AC1.00 EFW2,683 g 35w 3d 97% Hadlock EFW (lb)5 lb EFW (oz)15 oz EFW by:Hadlock ([id number]) Extended Cav. septi pel. tr5.7 mm Vp6.3 mm CM5.7 mm 10% Nicolaides Head / Face / Neck Cephalic index0.78 33% Nicolaides Extremities / Bony Struc FL / BPD0.73 FL / HC0.20 FL / AC0.20 Other Structures SLU017 bpm General Evaluation Cardiac activity present. FHR [...] in 4 weeks before IOL. Coding ======= Description:48520-53 Follow Up Ultrasound Description:42979-64 BPP without NST Hand Stonecutter: Kristine Camp RDVT Physician: Deven Chinchilla MD, FACOG Electronically signed by: Deven Chinchilla MD, FACOG at: 15:06 Deven Chinchilla MD [facility] ORDERABLES Final Result from Last [address] [employer] Care Teams Art Appraiser Relationship Specialty Start Date End Date Loan Vick MD [address] [place] [address] PCP - General Family Medicine 08/23/24
--- OUTSIDE RECORDS SUMMARY | 2024-12-10 11:24 | XMS_ITS | Encounter Summary ---
Author Organization [facility] Address [address] [place] [address] Care Team Providers Care Registered Nurse Float Pool Name Role Phone Loan Vick MD Primary Care Provider +1- [phone] Encounter Details Date Type Department Care Team (Late st Contact Info) Description 11/26/2024 Medication Therapy Management [facility] MATERNAL MEDICINE [address] [facility] [address] [place] [address] Deven Chinchilla MD [address] [facility] [address] [place] [address] Social History Tobacco Use Types Packs/Day Years [...] on filedocumented in this encounter Care Teams Registered Nurse Float Pool Relationship Specialty Start Date End Date Loan Vick MD [address] [place] [address] PCP - General Family Medicine 08/23/24 documented as of this encounter
--- OUTSIDE RECORDS SUMMARY | 2024-12-10 11:24 | XMS_ITS | Encounter Summary ---
Author Organization [place] [address] Care Team Providers Care Paper Mill Manager Name Role Phone Loan Vick MD Primary Care Provider +1- [phone] Reason for Visit * Reason Comments Medication Refill Encounter Details Date Type Department Care Team (Late st Contact Info) Description 11/30/2024 Refill SEP [facility] [address] [facility] [place] [address] Loan Vick MD [address] [place] [address] Medication Refill Social History Tobacco [...] and sent to requesting pharmacy. Routed to [facility] if an appointment is needed. documented in [...] documented as of this encounter Care Teams Paper Mill Manager Relationship Specialty Start Date End Date Loan Vick MD [address] [place] [address] PCP - General Family Medicine 03/23/16 documented as of this encounter
--- OUTSIDE RECORDS SUMMARY | 2024-12-10 11:24 | XMS_ITS | Clinical Summary ---
Author Organization [facility] Address [address] [place] [address] Phone Care Team Providers Care Grill Cook Name Role Phone Loan Vick MD Primary Care Provider +1- [phone] Allergies Active Allergy Reactions Criticality Noted Date [...] inhibitors are contraindicated due to desire for digital pre press operator - Discussed with Dr. Deven Chinchilla via phone who reminded that cholesterol is essential in and that high cholesterol for short time typically does not warrant treatment. I do agree but feel that treatment is warranted for her fci health as her cholesterol has been significantly [...] Department Care Team Description 11/30/2024 Refill SEP [facility] [address] [place] [address] Loan Vick MD Medication Refill 09/19/2024 9:49 AM EDT - 09/19/2024 11:59 PM EDT Hospital Encounter [facility] Physical Therapy [address] [place] [address] Raquel Torres, PT Discharge Disposition: Home or [...] with biopsy; Surgeon: Jamey Schwab MD; Location: [facility] ENDOSCOPY; Service: Endoscopy UPPER GASTROINTESTINAL ENDOSCOPY 08/07/2015 N/A Surgeon: Jamey Schwab MD; Location: [facility] ENDOSCOPY; Service: Endoscopy DENTAL SURGERY permanent [...] NEEDLE BIOPSY LIVER 02/07/2024 Eduardo Betancourt MD [facility] CT Medical History Medical History Date [...] Cook RMA Medical Devices Implanted Type Area Selling Underwriter Device Identifier Shelf Expiration Date Model / Serial / Lot Cornea Tissue - [id number] Implanted:Qty: 1 on 03/27/2014 by Armando Monreal MD at [facility] Right: Eye UNKNOWN 04/01/2014 [id number] / [id number] / Lens Intraocular Preloaded 19.0 Diopter - [id number] Implanted:Qty: 1 on 11/05/2015 by Armando Monreal MD at [facility] Right: Eye EL LAB:SURG 03/17/2018 [id number] / [id number] / Procedures Procedure Name Priority Date/Time Associated Diagnosis Comments SCANNED LABS 11/24/2024 12:59 PM EDT SCANNED LABS 11/06/2024 11:04 PM EDT SCANNED LABS 10/24/2024 5:33 PM EDT GC CHLAMYDIA THIN PREP Routine 05/12/2020 11:00 AM EST Well adult exam ROLL MILL OPERATOR CYTOLOGY REQUEST (PAP ONLY) Routine 05/12/2020 11:00 AM EST Well adult exam from Last 3 Months or Most Recently Relevant to Health Maintenance Results * SCANNED LABS (11/24/2024 12:59 PM EDT) Only the most recent of3 resultswithin the time period is included. 11/24/2024 12:5 9 PM EDT us Unknown Provider HEMATOLOGY ORDERABLES Final Res ult * ROLL MILL OPERATOR CYTOLOGY REQUEST (PAP ONLY) (05/12/2020 11:00 AM EST) CASE REPORT Gynecologic Cytology Report Case: [id number] Authorizing Provider: Loan Vick MD Collected: 05/12/2020 1100 Ordering Location: [facility] Received: 05/12/2020 1100 First Screen: Leesa Jose CT Specimen: LIQUID-BASED PAP - CERVICAL/ENDOCERV ICAL, Cervix, Endocervical 05/14/2020 10:48 AM EST [facility] PAP FINAL DIAGNOSIS Negative for intraepithelial lesion or malignancy 05/14/2020 10:48 AM [facility] at 1048 EST MICROSCOPIC DESCRIPTION Microscopic examination is performed and the findings corroborate the diagnosis 05/14/2020 10:48 AM EST [facility] PAP SMEAR ADEQUACY Satisfactory for evaluation 05/14/2020 10:48 AM EST [facility] ENDOCERVICAL T-ZONE Transformation zone absent. 05/14/2020 10:48 AM EST [facility] EMBEDDED IMAGES 10:48 AM EST [facility] PAP DISCLAIMER The Pap Smear is a screening test that aids in the detection of cervical cancer and cancer precursors. Both false positive and false negative results can occur. The test should be used at regular intervals, and positive results should be confirmed before definitive therapy. Processed using the ThinPrep Dye Beck Reel Operator Automated cytology screening device ([employer]). 05/14/2020 10:48 AM EST [facility] Thin Prep ENDOCERVICAL STRUCTURE / Unknown 05/12/2020 11:00 AM EST 05/12/2020 11:00 AM EST us Loan Vick MD CYTOLOGY ORDERABLES Final Result [facility] [address] [place] [address] * GC CHLAMYDIA THIN PREP (05/12/2020 11:00 AM EST) Chlamydia trachomatis Not Detected Not Detected 05/13/2020 5:39 PM EST PREFERRED [employer] [facility] Neisseria gonorrhoeae Not Detected Not Detected 05/13/2020 5:39 PM EST [facility] Diet TV [facility] Thin Prep SPECIMEN FROM UTERINE CERVIX / Unknown 05/12/2020 11:00 AM EST 05/12/2020 11:00 AM EST Narrative PREFERRED [employer] [facility] - 05/13/2020 5:39 PM EST Testing methodology is budget clerk mediated amplification (TMA) using the [employer] Combo 2 assay from [employer]. A negative result does not completely rule [...] MICROBIOLOGY - GENERAL ORD ERABLES Final Result [facility] Diet TV [facility] [address] [facility] , [address] [place], [place] [id number] from Last 3 Months or Most Recently Relevant to Health Maintenance Insurance [employer] PPO Care Teams Grill Cook Relationship Specialty Start Date End Date Loan Vick MD [address] [place] [address] PCP - General Family Medicine 03/23/16
--- OUTSIDE RECORDS SUMMARY | 2024-12-10 11:24 | XMS_ITS | Encounter Summary ---
Author Organization [facility] Address [address] [place] [address] Care Team Providers Care Fabrication Welder Name Role Phone Loan Vick MD Primary Care Provider +1- [phone] Encounter Details Date Type Department Care Team [...] on filedocumented in this encounter Care Teams Fabrication Welder Relationship Specialty Start Date End Date Loan Vick MD [address] [place], [place] [id number] PCP - General Family Medicine 08/23/24 documented as of this encounter
== END 2024-12-06 23:59 ==
LOC: LAB.DROPOF 12-10 10:40
PROVIDERS: PCP Obstetrics & Gynecology; Visit Provider Obstetrics & Gynecology
DX: O24.419 Gestational diabetes mellitus in pregnancy, unspecified control (principal); R31.9 Hematuria, unspecified
CPT/HCPCS: 87086

== ENCOUNTER 2024-12-07 17:05 | Observation (INO) | payer BC, SELFPAY ==
--- OUTSIDE RECORDS SUMMARY | 2024-10-25 13:26 | XMS_ITS | Encounter Summary ---
Author Organization [facility] Address [address] [place] [id number] Care Team Providers Care Automated Weaver Name Role Phone Loan Vick MD Primary Care Provider +1- [phone] Reason for Referral * Diagnostic Imaging (Routine) - Closed Specialty Diagnoses / Procedures Referred By Contac t Referred To Contact Radiology Diagnoses History of IUFD Procedures US [facility] Diagnostic [place] Shameka Chandler MD [address] [place] [address] Phone: tel: fax: Referral ID Status Reason Start Date Expiration Date Visits Re quested Visits Authorized Closed 10/02/2024 01/01/2026 1 1 Reason for Visit * Diagnostic Imaging (Routine) - Closed Specialty Diagnoses / Procedures Referred By Kennedy messina Referred To Contact Radiology Diagnoses History of IUFD Procedures US [facility] Diagnostic [place] Shameka Chandler MD [address] [address] Phone: tel: fax: Referral ID Status Reason Start Date Expiration Date Visits Re quested Visits Authorized Closed 10/02/2024 01/01/2026 1 1 Encounter Details Date Type Department Care Team (Late st Contact Info) Description 10/25/2024 1:26 PM EDT - 10/25/2024 11:59 PM EDT Hospital Encounter [facility] [address] [facility] [place] [id number] Shameka Chandler MD [address] [facility] [address] [place], [place] [address] History of IUFD Discharge Disposition: Home or [...] Procedure Name Priority Date/Time Associated Diagnosis Comments [facility] Routine 10/25/2024 2:00 PM EDT History of IUFD documented in this encounter Results * [facility] (10/25/2024 2:00 PM EDT) Anatomical Region Laterality Modality Ultrasound 10/25/2024 1:37 PM EDT Narrative 10/25/2024 2:13 PM EDT PAT NAME: SANDEEP BRITO MED REC#: [id number] DA: [id number] PAT GEND: F PAT TYPE: O EXAM TED: [id number] REF PHYS HARINI MONETZ Comparison Studies The findings of this study [...] EFW (oz) 11 oz EFW by: Hadlock (KGE-GN-US-FL) Extended Cav. septi pel. tr 5.8 mm Raveler 6.4 mm CM 6.6 mm 47% Nicolaides [...] Normal Heart / Thorax 3-vessel view: Normal 5-poihzg-cmxahnn view: normal Cord insertion: Normal Stomach: Appears [...] AC>99%ile. Limited anatomic survey appears normal. The KLAEIGH (23cm) and BPP normal. Recommendation 4 weeks. Instructed to perform glucose checks x 1 week given size. 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 MO BMI 42. H/O seizures. Previous child with cerebralpalsy. Maternal Assessment Qkrpfo795 cm Height (ft)5 ft Height (in)1 in Kyjaho433 kg Weight (lb)221 lb BMI42.27 kg/m Method ======= Transabdominal ultrasound examination. View: Suboptimal view: limited byfetal position ========= Cummins . Number of fetuses: 1 Dating ====== Method of dating:based on stated ROHINI GA by prior zoaavqabbv48 w + 0 d ROHINI by prior [...] Standard BPD74.8 mm 30w 0d 92% Hadlock VOZ247.5 mm 32w 6d >99% Sindy HC280.1 mm 30w 5d 92% Hadlock Cerebellum tr34.6 mm 29w 0d 79% Hill AC278.9 mm 32w 0d >99% Hadlock Femur57.0 mm 29w 6d 86% Hadlock Sgmfgxo49.4 mm 29w 0d 72% Sindy HC / AC1.00 EFW1,686 g 30w 5d >99% Hadlock EFW (lb)3 lb EFW (oz)11 oz EFW by:Hadlock (RTC-ZN-GE-FL) Extended Cav. septi pel. tr5.8 mm Vp6.4 mm CM6.6 mm 47% Nicolaides Head / Face / Neck Cephalic index0.74 6% Nicolaides Extremities / Bony Struc FL / BPD0.76 FL / HC0.20 FL / AC0.20 Other Structures MAL666 bpm General Evaluation Cardiac activity present. FHR [...] LVOT view:Normal Heart / Thorax 3-vessel view:Normal 8-qineqp-kacxeur view:normal Cord insertion:Normal Stomach:Appears normal Kidneys:Appears normal Bladder:Appears normal Gender:female Wants to know gender:yes Maternal Structures Uterus / Cervix Cervix:Visualized Approach:Transabdominal Cervical pwguro43.5 mm Doppler Arterial Umbilical A PI0.87 20% [...] x 1 week given size. Coding ======= Description:66134-29 Follow Up Car Wash Supervisor: RT Lashon Wolf , RDMS Physician: Deven Chinchilla MD, ZULEMAOG Electronically signed by: Deven Chinchilla MD, ZULEMAOG at: 14:13 us Shameka Chandler MD IMG US ORDERABLES Final Result documented in this encounter Visit Diagnoses Diagnosis History of IUFD documented in this encounter Care Teams Automated Weaver Relationship Specialty Start Date End Date Loan Vick MD [address] [place] [address] PCP - General Family Medicine 08/23/24 documented as of this encounter
--- OUTSIDE RECORDS SUMMARY | 2024-10-25 14:45 | XMS_ITS | Encounter Summary ---
[facility] Address [address] [place] [id number] Care Team Providers Care Marketing Intelligence Analyst Name Role Phone Loan Vick MD Primary Care Provider +1- [phone] Reason for Referral * Diagnostic Imaging (Routine) - Authorized Specialty Diagnoses / Procedures Referred By Contact Referred To Contact Obstetrics and Gynecology Diagnoses History of IUFD Procedures [facility] Deven Chinchilla MD [address] [facility] [address] [place] [address] Phone: tel: fax: [facility] MATERNAL MEDICINE [address] [facility] [address] [place] [address] Phone: tel: fax: Referral ID Status Reason Start Date Expiration Date V isits Requested Visits Authorized [id number] Authorized 10/25/2024 01/24/2026 2 2 Reason for Visit * Reason Comments hx 39 week IUFD; MO; hx seizures; prev. child with CP Encounter Details Date Type Department Care Team (Late Contact Info) Description 10/25/2024 2:45 PM EDT Office Visit [facility]ERNAL MEDICINE [address] [facility] [address] [place] [phone] Deven Chinchilla MD [address] [facility] [address] [place] [address] History of IUFD (Primary Dx) Social History [...] to take to her appointment with primary J2EE APPLICATION DEVELOPER next week. Patient reports history of decreasedfetal movement for the past day or so though has felt some movement. movement noted on ultrasound today. We discussed careful return precautions regarding decreased movement and to reportto primary J2EE APPLICATION DEVELOPER if decreased movement has occurred. Follow Up [...] CVS. Deven Chinchilla MD, FACOG Maternal Medicine, [facility] * Deven Chinchilla MD - 10/25/2024 [...] to take to her appointment with primary J2EE APPLICATION DEVELOPER next week. Patient reports history of decreasedfetal movement for the past day or so though has felt some movement. movement noted on ultrasound today. We discussed careful return precautions regarding decreased movement and to reportto primary J2EE APPLICATION DEVELOPER if decreased movement has occurred. documented in this encounter Plan of Treatment Scheduled Orders Name Type Priority Associated Diagnoses Orde r Schedule [facility] Imaging Routine History of IUFD Every 4 Weeks for 2 Occurrences starting 10/25/2024 until 10/25/2025, 1 completed documented as of this encounter Results * [facility] (11/28/2024 2:55 PM EDT) Anatomical Region Laterality Modality Ultrasound 11/28/2024 2:31 PM EDT Narrative 11/28/2024 3:06 PM EDT PAT NAME: SANDEEP BRITO MED REC#: [id number] DA: [id number] PAT GEND: F PAT TYPE: O EXAM TED: [id number] REF PHYS HARINI GILBERT Comparison Studies The [...] EFW (oz) 15 oz EFW by: Hadlock ([id number]) Extended Cav. septi pel. tr 5.7 mm Medical Billing Manager 6.3 mm CM 5.7 mm 10% Nicolaides [...] 4 weeks before IOL. Coding ======= Description: 74581-23 Follow Up Ultrasound Description: 77584-63 BPP without NST Search Engineer: Kristine Camp RDMS Physician: Deven Chinchilla MD, FACOG Electronically signed by: Deven Chinchilla MD, FACOG at: 15:06 Procedure Note Deven Chinchilla MD - 11/28/2024 PAT NAME: SANDEEP BRITO MED REC#: [id number] DA: 2000 PAT GEND: F PAT TYPE: O EXAM TED: [id number] REF PHYS HARINI GILBETR Comparison Studies The findings of this study are compared to the prior ultrasound studydated 10/25/24 Patient Status Outpatient Indication ======== Gestational diabetes. 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 Previous child with cerebral palsy.Hx seizures. Morbid obesity BMI 43. Maternal Assessment Psixso500 cm Height (ft)5 ft Height (in)1 in Kloyvd962 kg Weight (lb)223 lb BMI42.65 kg/m Method ======= Transabdominal ultrasound examination. View: Adequate view ========= Cummins . Number of fetuses: 1 Dating ====== Method of dating:based on stated ROHINI GA by prior xjdgwasqvx37 w + 6 d ROHINI by prior [...] Standard BPD88.3 mm 35w 5d 98% Hadlock TPL529.5 mm 38w 2d >99% Sindy HC322.8 mm 36w 3d 94% Hadlock Cerebellum tr43.7 mm 34w 0d 65% Hill AC322.9 mm 36w 1d >99% Hadlock Femur64.7 mm 33w 3d 53% Hadlock Ibkhhmv27.8 mm 32w 3d 49% Sindy HC / AC1.00 EFW2,683 g 35w 3d 97% Hadlock EFW (lb)5 lb EFW (oz)15 oz EFW by:Hadlock (YAV-[id number]-FL) Extended Cav. septi pel. tr5.7 mm Vp6.3 mm CM5.7 mm 10% Nicolaides Head / Face / Neck Cephalic index0.78 33% Nicolaides Extremities / Bony Struc FL / BPD0.73 FL / HC0.20 FL / AC0.20 Other Structures OON713 bpm General Evaluation Cardiac activity present. FHR [...] in 4 weeks before IOL. Coding ======= Description:15774-20 Follow Up Ultrasound Description:01003-15 BPP without NST Search Engineer: Kristine Camp RDWY Physician: Deven Chinchilla MD, FACOG Electronically signed by: Deven Chinchilla MD, FACOG at: 15:06 us Deven Chinchilla MD IMG US ORDERABLES Final Result documented in this encounter Visit Diagnoses Diagnosis History of IUFD- Primary documented in this encounter Care Teams Marketing Intelligence Analyst Relationship Specialty Start Date End Date Loan Vick MD [address] [place] [address] PCP - General Family Medicine 08/23/24 documented as of this encounter
--- OUTSIDE RECORDS SUMMARY | 2024-11-28 13:50 | XMS_ITS | Encounter Summary ---
Author Organization [facility] Address [address] [place] [id number] Care Team Providers Care Sign Hanger Name Role Phone Loan Vick MD Primary Care Provider +1- [phone] Reason for Visit * Diagnostic Imaging (Routine) - Authorized Specialty Diagnoses / Procedures Referred By Contact Referred To Contact Obstetrics and Gynecology Diagnoses History of IUFD Procedures US [facility] Chinchilla, Deven Morrissey MD [address] [facility] [address] [place] [address] Phone: tel: fax: [facility] [address] [facility] [address] [place] [address] Phone: tel: fax: Referral ID Status Reason Start Date Expiration Date V isits Requested Visits Authorized [id number] Authorized 10/25/2024 01/24/2026 2 2 Encounter Details Date Type Department Care Team (Latest Contact Info) Description 11/28/2024 1:50 PM EDT - 11/28/2024 11:59 PM EDT Hospital Encounter [facility] US PER DIAG CTR [address] [place] [address] Harini Gilbert, DO [address] [facility] [address] [place], [place] [address] Discharge Disposition: Home or Self Care Social [...] Procedure Name Priority Date/Time Associated Diagnosis Comments [facility] Routine 11/28/2024 2:55 PM EDT History of IUFD documented in this encounter Results * Counts include 234 beds at the [facility] (11/28/2024 2:55 PM EDT) Anatomical Region Laterality Modality Ultrasound 11/28/2024 2:31 PM EDT Narrative 11/28/2024 3:06 PM EDT PAT NAME: SANDEEP BRITO MED REC#: [id number] DA: [id number] PAT GEND: F PAT TYPE: O EXAM TED: [id number] REF PHYS HARINI GILBERT Comparison Studies The [...] EFW (oz) 15 oz EFW by: Hadlock (TIR-XX-UD-FL) Extended Cav. septi pel. tr 5.7 mm Third Rail Installer 6.3 mm CM 5.7 mm 10% Nicolaides [...] 4 weeks before IOL. Coding ======= Description: 32221-95 Follow Up Ultrasound Description: 15325-81 BPP without NST Laboratory Miller: Kristine Camp RDMS Physician: Deven Chinchilla MD, FACOG Electronically signed by: Deven Chinchilla MD, FACOG at: 15:06 Procedure Note Deven Chinchilla MD - 11/28/2024 PAT NAME: SANDEEP BRITO MED REC#: [id number] DA: [id number] PAT GEND: F PAT TYPE: O EXAM TED: [id number] REF PHYS HARINI GILBERT Comparison Studies The findings of this study are compared to the prior ultrasound studydated 10/25/24 Patient Status Outpatient Indication ======== Gestational diabetes. 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 Previous child with cerebral palsy.Hx seizures. Morbid obesity BMI 43. Maternal Assessment Iqfgxs853 cm Height (ft)5 ft Height (in)1 in Ccfrnq578 kg Weight (lb)223 lb BMI42.65 kg/m Method ======= Transabdominal ultrasound examination. View: Adequate view ========= Cummins . Number of fetuses: 1 Dating ====== Method of dating:based on stated ROHINI GA by prior gcxzyzhyyl12 w + 6 d ROHINI by prior [...] Standard BPD88.3 mm 35w 5d 98% Hadlock MSQ509.5 mm 38w 2d >99% Sindy HC322.8 mm 36w 3d 94% Hadlock Cerebellum tr43.7 mm 34w 0d 65% Hill AC322.9 mm 36w 1d >99% Hadlock Femur64.7 mm 33w 3d 53% Hadlock Hwxfxaq83.8 mm 32w 3d 49% Sindy HC / AC1.00 EFW2,683 g 35w 3d 97% Hadlock EFW (lb)5 lb EFW (oz)15 oz EFW by:Hadlock (RSE-YV-XD-FL) Extended Cav. septi pel. tr5.7 mm Vp6.3 mm CM5.7 mm 10% Nicolaides Head / Face / Neck Cephalic index0.78 33% Nicolaides Extremities / Bony Struc FL / BPD0.73 FL / HC0.20 FL / AC0.20 Other Structures JSD146 bpm General Evaluation Cardiac activity present. FHR [...] in 4 weeks before IOL. Coding ======= Description:67392-52 Follow Up Ultrasound Description:56916-43 BPP without NST Laboratory Miller: Kristine Camp RDME Physician: Deven Chinchilla MD, FACOG Electronically signed by: Deven Chinchilla MD, FACOG at: 15:06 us Deven Chinchilla MD IMG US ORDERABLES Final Result documented in this encounter Visit Diagnoses Not on filedocumented in this encounter Care Teams Sign Hanger Relationship Specialty Start Date End Date Loan Vick MD [address] [place] [address] PCP - General Family Medicine 08/23/24 documented as of this encounter
--- OUTSIDE RECORDS SUMMARY | 2024-11-28 14:45 | XMS_ITS | Encounter Summary ---
[facility] Address [address] [place] [address] Care Team Providers Care Product/Device Technologist Name Role Phone Loan Vick MD Primary Care Provider +1- [phone] Reason for Visit * Reason Comments hx 39 wk IUFD, MO, LGA, prev child CP, h x seizures Encounter Details Date Type Department Care Team (Late st Contact Info) Description 11/28/2024 2:45 PM EDT Office Visit [facility] MATERNAL MEDICINE [address] [facility] [address] [place] [address] Deven Chinchilla MD [address] [facility] [address] [place] [address] History of IUFD (Primary Dx); Insulin controlled [...] vaginal bleeding, leaking fluid. Patient reports occasional [place]-Morales contractions. Endorses normal movement. NIPT negative. Next OB follow-up appointment with Dr. Gilbert on 12/06/2024. * Deven Chinchilla MD - 11/28/2024 2:45 PM EDT Maternal/ Medicine Consult Note Date: 11/28/2024 Name: Pili Kyle : 2000 Referring Provider: Iram Gilbert DO Chief Complaint hx 39 wk IUFD, MO, LGA, prev child CP, hx seizures Subjective History of Present Illness: Piil Kyle is a 23 y.o. 32w6d who [...] Medicine, [facility] documented in this encounter Plan of Treatment Not on file documented as of this encounter Visit Diagnoses Diagnosis History of IUFD- Primary Insulin controlled gestational diabetes mellitus (GDM) in third trimester documented in this encounter Care Teams Product/Device Technologist Relationship Specialty Start Date End Date Loan Vick MD [address] [place] [address] PCP - General Family Medicine 08/23/24 documented as of this encounter
--- OUTSIDE RECORDS SUMMARY | 2024-12-07 10:05 | XMS_ITS | Clinical Summary ---
Author Organization [facility] Address [address] [address] Phone Care Team Providers Care Test Case Developer Name Role Phone Unavailable Unavailable Conditions or Problems No information available. Medications No information available. Medications Administered No information available. Allergies, Adverse Reactions, Alerts No information available. Results No information available. Plan of Care No information available. Procedures Code Procedure Name Date Entry Date CPT-03267 COVID-19 Moderna CPT-0012A IZ administration - COVID-19 - Moderna 2n d dose CPT-01205 COVID-19 Moderna CPT-44442 IZ administration - injection - single 20 [...]
--- OUTSIDE RECORDS SUMMARY | 2024-12-07 10:06 | XMS_ITS | Clinical Summary ---
Author Organization [facility] Address [address] [place] [address] Care Team Providers Care Laboratory Mechanic Helper Name Role Phone Loan Vick MD Primary Care Provider +1- [phone] Allergies Active Allergy Reactions Criticality Noted Date [...] hours postprandial 50 each 6 5 Active Continuous Glucose Sensor (Dexcom G7 Sensor) misc USE DIRECTED TO CHECK BLOOD SUGAR. CHANGE EVERY 10 DAYS 5 Active Lantus SoloStar 100 UNIT/ML injection pen Inject 5 Units under the skin into the appropriate area as directed Every Night. 5 Active Embecta Pen Needle Nia 2 Gen 32G X 4 MM misc USE WITH LANTUS ONCE DAILY 5 Active Accu-Chek Softclix Lancets lancets USE INSTRUCTED. FASTING, 2 HOURS POSTPRANDIAL. 5 Active cephalexin (KEFLEX) 500 MG capsule Take 1 capsule by mouth Every 12 (Twelve) Hours. 5 Active Blood Glucose Monitoring Suppl (Accu-Chek Guide Me) w/Device kit 5 Active glucose blood test strip Use as instructed. Fasting, 2 hours postprandial 50 each 5 025 Discontin ued(Reord er) insulin glargine (LANTUS, SEMGLEE) 100 UNIT/ML injection Inject 5 Units under the skin into the appropriate area as directed Every Night. 025 Discontin ued(*Re-E ntry) Active Problems Problem Noted Date Diagnosed Date Insulin controlled gestation al diabetes mellitus (GDM) in third trimester 11/28/2024 Assessment & Plan (11/28/2024 2:46 PM EDT): GLUCOSE MONITORING Target plasma blood glucose values [...] metformin or insulin therapy. We discussed insulin treatment as the gold standard. MATERNAL RISKS Insulin resistance [...] obesity. Glycemic control is important to reducing these risks. morbidities among infants of diabetic mothers include [...] at night with overall good control of glucose values. Given her history of IUFD we will follow glucose values weekly. - Elective delivery for suspected macrosomia at estimated weight of greater than 4500 grams. - Plan for 2-hour OGTT at 6 weeks . - Continuation of lifestyle changes PP to lower risk of type 2 DM in the future. History of IUFD 11/09/2023 Assessment & Plan (11/28/2024 3:04 PM EDT): Today's ultrasound shows a slight improvement of growth with growth at the 97th percentile though abdominal circumference is still greater than the 99th percentile. Amniotic fluid is normal at 19 cm. We offered patient 4-week follow- up here for growth right before induction of labor but she desires that to be performed in your office. Assessment & Plan (10/25/2024 2:09 PM EDT): [...] to take to her appointment with primary FREIGHT INSPECTOR next week. Patient reports history of decreased movement for the past day or so though has felt some movement. movement noted on ultrasound today. We discussed careful return precautions regarding decreased movement and to report to primary FREIGHT INSPECTOR if decreased movement has occurred. Assessment [...] Encounters Date Type Department Care Team Description 11/28/2024 2:45 PM EDT Office Visit [facility] MATERNAL MEDICINE [address] [facility] [address] [place] [id number] Deven Chinchilla MD History of IUFD (Primary Dx); Insulin controlled gestational diabetes mellitus (GDM) in third trimester 11/28/2024 1:50 PM EDT - 11/28/2024 11:59 PM EDT Hospital Encounter [facility] PER DI[facility] [address] [place] [address] Harini Gilbert DO Discharge Disposition: Home or Self Care 11/28/2024 Travel 11/26/2024 Medication Therapy Management [facility] MATERNAL MEDICINE [address] [facility] [address] [place] [address] Deven Chinchilla MD 11/23/2024 Refill [facility] MATERNAL MEDICINE [address] [facility] [address] [place] [address] Deven Chinchilla MD 10/25/2024 2:45 PM EDT Office Visit [facility] MATERNAL MEDICINE [address] [phone] Deven Chinchilla MD History of IUFD (Primary Dx) 10/25/2024 1:26 PM EDT - 10/25/2024 11:59 PM EDT Hospital Encounter [facility] [address] [place] [address] Shameka Chandler MD History of IUFD Discharge Disposition: Home or Self Care 10/25/2024 Travel 09/27/2024 3:15 PM EDT Office Visit [facility] MATERNAL MEDICINE [address] [address] Shameka Chandler MD History of IUFD (Primary Dx) 09/27/2024 2:40 PM EDT - 09/27/2024 11:59 PM EDT Hospital Encounter [facility] [address] [place] [address] Shameka Chandler MD History of IUFD Discharge [...] Pressure 108/58 11/28/2024 2:23 PM EDT Pulse 72 11/09/2023 11:11 AM EDT Temperature - - Respiratory Rate 18 11/09/2023 11:11 AM EDT Oxygen Saturation - - Inhaled Oxygen Concentration - - Weight 101 kg (223 lb) 11/28/2024 2:23 PM EDT Height 154.9 cm (5' 1 ) 11/09/2023 11:11 AM EDT Body Mass Index 42.14 11/09/2023 11:11 AM EDT Plan of Treatment Health Maintenance Due Date [...] Procedure Name Priority Date/Time Associated Diagnosis Comments [facility] Routine 11/28/2024 2:55 PM EDT History of IUFD [facility] Routine 10/25/2024 2:00 PM EDT History of IUFD [facility] Routine 09/27/2024 3:24 PM EDT History of IUFD from Last 3 Months Results * [facility] (11/28/2024 2:55 PM EDT) Only the most recent of3 resultswithin the time period is included. Anatomical Region Laterality Modality Ultrasound 11/28/2024 2:31 PM EDT Narrative 11/28/2024 3:06 PM EDT PAT NAME: SANDEEP BRITO MED REC#: [id number] DA: [id number] PAT GEND: F PAT TYPE: O EXAM TED: [id number] REF PHYS HARINI GILBERT Comparison Studies The [...] EFW (oz) 15 oz EFW by: Hadlock ([id number]) Extended Cav. septi pel. tr 5.7 mm Fire Hose Curer 6.3 mm CM 5.7 mm 10% Nicolaides [...] 4 weeks before IOL. Coding ======= Description: 17914-67 Follow Up Ultrasound Description: 76834-96 BPP without NST Grey Washer: Kristine Camp RDMS Physician: Deven Chinchilla MD, FACOG Electronically signed by: Deven Chinchilla MD, FACOG at: 15:06 Procedure Note Deven Chinchilla MD - 11/28/2024 PAT NAME: SANDEEP BRITO MED REC#: [id number] DA: [id number] PAT GEND: F PAT TYPE: O EXAM TED: [id number] REF PHYS HARINI GILBERT Comparison Studies The findings of this study are compared to the prior ultrasound studydated 10/25/24 Patient Status Outpatient Indication ======== Gestational diabetes. 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 Previous child with cerebral palsy.Hx seizures. Morbid obesity BMI 43. Maternal Assessment Grfqka301 cm Height (ft)5 ft Height (in)1 in Phfsdd580 kg Weight (lb)223 lb BMI42.65 kg/m Method ======= Transabdominal ultrasound examination. View: Adequate view ========= Cummins . Number of fetuses: 1 Dating ====== Method of dating:based on stated ROHINI GA by prior [id number] w + 6 d ROHINI by prior assessment:01/17/2025 Ultrasound examination on:11/28/2024 GA by U/S based upon:AC, BPD, Femur, HC GA by U/S35 w + 3 d ROHINI by U/S:12/30/2024 Previous dating:based on stated ROHINI, selected on 10/25/2024 Agreed ROHINI of previous datin01/17/2025 Assigned:based on stated ROHINI, selected on 11/28/2024 Assigned GA32 w + 6 d Assigned ROHINI:01/17/2025 [id number] d Biometry Standard BPD88.3 mm 35w 5d 98% Hadlock ZPN664.5 mm 38w 2d >99% Sindy HC322.8 mm 36w 3d 94% Hadlock Cerebellum tr43.7 mm 34w 0d 65% Hill AC322.9 mm 36w 1d >99% Hadlock Femur64.7 mm 33w 3d 53% Hadlock Gxzjqnr29.8 mm 32w 3d 49% Sindy HC / AC1.00 EFW2,683 g 35w 3d 97% Hadlock EFW (lb)5 lb EFW (oz)15 oz EFW by:Hadlock ([id number]) Extended Cav. septi pel. tr5.7 mm Vp6.3 mm CM5.7 mm 10% Nicolaides Head / Face / Neck Cephalic index0.78 33% Nicolaides Extremities / Bony Struc FL / BPD0.73 FL / HC0.20 FL / AC0.20 Other Structures NSS439 bpm General Evaluation Cardiac activity present. FHR [...] in 4 weeks before IOL. Coding ======= Description:17175-76 Follow Up Ultrasound Description:01863-69 BPP without NST Grey Washer: Kristine Camp RDLA Physician: Deven Chinchilla MD, FACOG Electronically signed by: Deven Chinchilla MD, FACOG at: 15:06 Deven Chinchilla MD [facility] ORDERABLES Final Result from Last [address] [employer] Care Teams Laboratory Mechanic Helper Relationship Specialty Start Date End Date Loan Vick MD [address] [place] [address] PCP - General Family Medicine 08/23/24
--- OUTSIDE RECORDS SUMMARY | 2024-12-07 10:07 | XMS_ITS | Encounter Summary ---
Author Organization [facility] Address [address] [place] [address] Care Team Providers Care Emergency Department Aide Name Role Phone Loan Vick MD Primary Care Provider +1- [phone] Encounter Details Date Type Department Care Team (Latest Contact Info) Description 11/28/2024 Travel Social History Tobacco Use Types Packs/Day [...] on filedocumented in this encounter Care Teams Emergency Department Aide Relationship Specialty Start Date End Date Loan Vick MD [address] [place], [place] [id number] PCP - General Family Medicine 08/23/24 documented as of this encounter
--- OUTSIDE RECORDS SUMMARY | 2024-12-07 10:07 | XMS_ITS | Encounter Summary ---
[facility] Address [address] [place] [address] Care Team Providers Care Vice President Residential Solar Sales Name Role Phone Loan Vick MD Primary Care Provider +1- [phone] Encounter Details Date Type Department Care Team (Late st Contact Info) Description 11/26/2024 Medication Therapy Management [facility] MATERNAL MEDICINE [address] [facility] [address] [place] [address] Deven Chinchilla MD [address] [facility] [address] [place] [address] Social History Tobacco Use Types Packs/Day Years [...] on filedocumented in this encounter Care Teams Vice President Residential Solar Sales Relationship Specialty Start Date End Date Loan Vick MD [address] [place] [address] PCP - General Family Medicine 08/23/24 documented as of this encounter
--- OUTSIDE RECORDS SUMMARY | 2024-12-07 10:07 | XMS_ITS | Clinical Summary ---
Author Organization 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 16 Tablet 1 2023 Active traZODone (DESYREL) 100 mg Oral Tablet Take 100 mg by mouth as needed for Sleep. Pt takes 1/4-1/2 as needed Active Colesevelam 3.75 gram Oral Powder in Packet Take 3.75 g by mouth daily. 30 Packet 2 2023 Active ergocalciferol (DRISDOL) 1,250 mcg (50,000 unit) Oral CapsuleIndications:Vit chu D deficiency Take 1 capsule daily with food for 14 days then take 1 capsule with food twice weekly for 3 mths. 38 Capsule 2023 Active ferrous gluconate (FERGON) 324 mg (37.5 mg iron) Oral TabletIndications:Iron deficiency Take 1 Tablet by mouth daily (with breakfast). 90 Tablet 1 2023 Active cyanocobalamin 1,000 mcg Oral TabletIndications:Simona min B12 deficiency Take 1 Tablet by mouth daily. 90 Tablet 1 2023 Active Ascorbic Acid 500 mg Oral Tablet, ChewableIndications:As corbic acid deficiency Take 1 Tablet by mouth daily. 90 Tablet 1 2023 Active rosuvastatin (CRESTOR) 20 mg Oral TabletIndications:Fami lial hypercholesterolemia Take 1 Tablet by mouth nightly. 90 Tablet 1 2023 Active sod sulf-pot chloride-mag sulf (SUTAB) 1.479-0.188- 0.225 gram Oral TabletIndications:Rect al bleeding Take 12 Tablets by mouth Preprocedure for up to 1 dose. Take 1 kit (12 tablets twice) per physician instructions. 24 Tablet 2023 Active hydrOXYzine (ATARAX) 25 mg Oral TabletIndications:Gene ralized anxiety disorder Take 1 Tablet by mouth 3 times daily as needed for Anxiety. 90 Tablet 2 2024 Active desvenlafaxine succinate (PRISTIQ) 100 mg Oral Tablet Sustained Release 24 hrIndications:Generali zed anxiety disorder Take 1 Tablet by mouth daily. 100 Tablet 2024 Active desvenlafaxine succinate (PRISTIQ) 100 mg Oral Tablet Sustained Release 24 hrIndications:Generali zed anxiety disorder Take 1 Tablet by mouth daily. 90 Tablet 1 12/03 Discontinued Active Problems Problem Noted Date Diagnosed Date [...] inhibitors are contraindicated due to desire for electric milkers installer - Discussed with Dr. Deven Chinchilla via phone who reminded that cholesterol is essential in and that high cholesterol for short time typically does not warrant treatment. I do agree but feel that treatment is warranted for her [facility] as her cholesterol has been significantly [...] Encounters Date Type Department Care Team Description 11/30/2024 Refill SEP [facility] [address] [place] [address] Loan Vick MD Medication Refill 09/19/2024 9:49 AM EDT - 09/19/2024 11:59 PM EDT Hospital Encounter [facility] Physical Therapy [address] [place] [address] Raquel Torres, PT Discharge Disposition: Home or Self Care from Last 3 Months Immunizations Immunization Administration [...] (DALK) ; Surgeon: Armando Monreal MD; Location: [facility]; Service: Ophthalmology Medical devices from this surgery are in the Medical Devices section. 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 COLONOSCOPY 08/07/2015 N/A COLONOSCOPY and ESOPHAGOGASTRODUODENOSCOPY with biopsy; Surgeon: Jamey Schwab MD; Location: [facility]; Service: Endoscopy UPPER GASTROINTESTINAL ENDOSCOPY 08/07/2015 N/A Surgeon: Jamey Schwab MD; Location: [facility]COPY; Service: Endoscopy DENTAL SURGERY permanent retainer in mouth CATARACT REMOVAL 11/05/2015 Right RIGHT EYE CATARACT EXTRACTION WITH PHACOEMULSIFICATION AND INTRAOCULAR LENS WITH RIGHT EYE WOUND REVISION ; Surgeon: Armando Monreal MD; Location: [facility]; Service: Ophthalmology Medical devices from this surgery are in the Medical Devices section. EYE SURGERY 11/05/2015 Right Surgeon: Armando Monreal MD; Location: [facility]; Service: Ophthalmology Medical devices from this surgery are in the Medical Devices section. EYE SURGERY 02/24/2016 Right RIGHT EYE YAG LASER CAPSULOTOMY; Surgeon: Armando Monreal MD; Location: [facility]; Service: Ophthalmology DILATION AND CURETTAGE OF UTERUS 09/16/2021 - 10/15/2021 CT NEEDLE BIOPSY LIVER 02/07/2024 CT NEEDLE BIOPSY LIVER 02/07/2024 Eduardo Betancourt MD [facility] CT Medical History Medical History [...] corneal transplant Wears glasses H/O Kawasaki's disease 2002 Vitamin D deficiency 04/13/2022 Dyslipidemia 04/13/2022 Family [...] Pap Smear 05/12/2023 05/12/2020 COVID-19 Vaccine ( season) 2023 05/27/2020, 04/29/2020 Annual Wellness Exam [...] body weight General No Maritza Cook RMA Medical Devices Implanted Type Area Motorman/Woman Device Identifier Shelf Expiration Date Model / Serial / Lot Cornea Tissue - [id number] Implanted:Qty: 1 on 03/27/2014 by Armando Monreal MD at [facility] Right: Eye UNKNOWN 04/01/2014 [id number] / [id number] / Lens Intraocular Preloaded 19.0 Diopter - [id number] Implanted:Qty: 1 on 11/05/2015 by Armando Monreal MD at [facility] Right: Eye EL LAB:SURG 03/17/2018 [id number] / [id number] / Procedures Procedure Name Priority Date/Time Associated Diagnosis Comments SCANNED LABS 11/24/2024 12:59 PM EDT SCANNED LABS 11/06/2024 11:04 PM EDT SCANNED LABS 10/24/2024 5:33 PM EDT GC CHLAMYDIA THIN PREP Routine 05/12/2020 11:00 AM EST Well adult exam SAP PORTAL DEVELOPER CYTOLOGY REQUEST (PAP ONLY) Routine 05/12/2020 11:00 AM EST Well adult exam from Last 3 Months or Most Recently Relevant to Health Maintenance Results * SCANNED LABS (11/24/2024 12:59 PM EDT) Only the most recent of3 resultswithin the time period is included. 11/24/2024 12:5 9 PM EDT us Unknown Provider HEMATOLOGY ORDERABLES Final Res ult * SAP PORTAL DEVELOPER CYTOLOGY REQUEST (PAP ONLY) (05/12/2020 11:00 AM EST) CASE REPORT Gynecologic Cytology Report Case: [id number] Authorizing Provider: Loan Vick MD Collected: 05/12/2020 1100 Ordering Location: [facility] Received: 05/12/2020 1100 First Screen: Leesa Jose CT Specimen: LIQUID-BASED PAP - CERVICAL/ENDOCERV ICAL, Cervix, Endocervical 05/14/2020 10:48 AM EST [facility] PAP FINAL DIAGNOSIS Negative for intraepithelial lesion or malignancy 05/14/2020 10:48 AM [facility] at 1048 EST MICROSCOPIC DESCRIPTION Microscopic examination is performed and the findings corroborate the diagnosis 05/14/2020 10:48 AM EST [facility] PAP SMEAR ADEQUACY Satisfactory for evaluation 05/14/2020 10:48 AM EST [facility] ENDOCERVICAL T-ZONE Transformation zone absent. 05/14/2020 10:48 AM EST [facility] EMBEDDED IMAGES 10:48 AM EST [facility] PAP DISCLAIMER The Pap Smear is a screening test that aids in the detection of cervical cancer and cancer precursors. Both false positive and false negative results can occur. The test should be used at regular intervals, and positive results should be confirmed before definitive therapy. Processed using the ThinPrep Starter Cup Powder Mixer Automated cytology screening device ([employer]). 05/14/2020 10:48 AM EST [facility] Thin Prep ENDOCERVICAL STRUCTURE / Unknown 05/12/2020 11:00 AM EST 05/12/2020 11:00 AM EST us Loan Vick MD CYTOLOGY ORDERABLES Final Result [facility] [address] [place] [address] * GC CHLAMYDIA THIN PREP (05/12/2020 11:00 AM EST) Chlamydia trachomatis Not Detected Not Detected 05/13/2020 5:39 PM EST PREFERRED [employer], [facility] Neisseria gonorrhoeae Not Detected Not Detected 05/13/2020 5:[address] [facility] [employer] [facility] Thin Prep SPECIMEN FROM UTERINE CERVIX / Unknown 05/12/2020 11:00 AM EST 05/12/2020 11:00 AM EST Narrative PREFERRED [employer], [facility] - 05/13/2020 5:39 PM EST Testing methodology is limousine rental clerk mediated amplification (TMA) using the [employer] Combo 2 assay from [employer]. A negative result does not completely rule [...] MICROBIOLOGY - GENERAL ORD ERABLES Final Result [facility] [employer] [facility] [address] [facility] , [address] [place], [place] [id number] from Last 3 Months or Most Recently Relevant to Health Maintenance Insurance [employer] PPO Care Teams Beach Lifeguard Relationship Specialty Start Date End Date Loan Vick MD [address] [place] [address] PCP - General Family Medicine 03/23/16
--- OUTSIDE RECORDS SUMMARY | 2024-12-07 10:07 | XMS_ITS | Encounter Summary ---
Author Organization [facility] Address [address] [place] [address] Care Team Providers Care Personnel Security Specialist Name Role Phone Loan Vick MD Primary Care Provider +1- [phone] Encounter Details Date Type Department Care Team [...] on filedocumented in this encounter Care Teams Personnel Security Specialist Relationship Specialty Start Date End Date Loan Vick MD [address] [place] [address] PCP - General Family Medicine 08/23/24 documented as of this encounter
--- OUTSIDE RECORDS SUMMARY | 2024-12-07 10:07 | XMS_ITS | Encounter Summary ---
Author Organization [place] [address] Care Team Providers Care Line Inspector Name Role Phone Loan Vick MD Primary Care Provider +1- [phone] Reason for Visit * Reason Comments Medication Refill Encounter Details Date Type Department Care Team (Late st Contact Info) Description 04/21/2018 Refill SEP [facility] [address] [facility] [place] [address] Loan Vick MD [address] [place] [address] Medication Refill Social History Tobacco [...] documented as of this encounter Care Teams Line Inspector Relationship Specialty Start Date End Date Loan Vick MD [address] [place] [id number] PCP - General Family Medicine 03/23/16 documented as of this encounter
--- OUTSIDE RECORDS SUMMARY | 2024-12-07 10:07 | XMS_ITS | Encounter Summary ---
Author Organization [place] [address] Care Team Providers Care Us Administrative Law Judge Name Role Phone Loan Vick MD Primary Care Provider +1- [phone] Reason for Visit * Reason Comments Medication Refill Encounter Details Date Type Department Care Team (Late st Contact Info) Description 11/30/2024 Refill SEP [facility] [address] [facility] [place] [address] Loan Vick MD [address] [place] [address] Medication Refill Social History Tobacco [...] Assessment Author No 06/14/2018 2:54 PM MAYUR Valente, Do nna A, RMA * Is the person blind or does he/she have serious difficulty seeing even when wearing glasses? Answer Date of Assessment Author No 06/14/2018 2:54 PM MAYUR Valente, Do nna A, RMA * Does this person have serious difficulty walking or climbing stairs? Answer Date of Assessment Author No 06/14/2018 2:54 PM MAYUR Valente, Do nna A, RMA * Does this person have difficulty dressing or bathing? Answer Date of Assessment Author No 06/14/2018 2:54 PM MAYUR Valente, Do nna A, RMA * Because of [...] Date Author No 06/14/2018 2:54 PM MAYUR Valente, Do nna A, RMA documented in this encounter Ordered Prescriptions Prescription Sig Dispense Quantity Refills Last Filled Start Date End Date desvenlafaxine succinate (PRISTIQ) 100 mg Oral Tablet Sustained Release 24 hrIndications:Gener alized anxiety disorder Take 1 Tablet by mouth daily. 100 Tablet 12/03/2024 documented in this encounter Miscellaneous Notes * Telephone Encounter - Kena Zarate CPhT - 12/03/2024 9:17 AM EDT Desvenlafaxine- Future Visit: None Last Assessed Visit: 06/28/24 Follow-Up: 12/29/24 All protocols passed. Refills approved and sent to requesting pharmacy. Routed to [facility] if an appointment is needed. documented in this encounter Plan of Treatment Not on file documented as of this encounter Goals Goal Patient Goal Type Associated Problems Recent Progress Patient-Stated? Author Eat better, exercise, reach an ideal body weight General No Cook, Maritza Spring, RMA documented as of this encounter Visit Diagnoses Diagnosis Generalized anxiety disorder documented in this encounter Discontinued Medications Medication Sig Discontinue Reason Start Date End Da te desvenlafaxine succinate (PRISTIQ) 100 mg Oral Tablet Sustained Release 24 hrIndications:Generalize d anxiety disorder Take 1 Tablet by mouth daily. 06/28/2024 12/03/2024 documented as of this encounter Care Teams Us Administrative Law Judge Relationship Specialty Start Date End Date Loan Vick MD [address] [place] [address] PCP - General Family Medicine 03/23/16 documented as of this encounter
--- OUTSIDE RECORDS SUMMARY | 2024-12-07 10:07 | XMS_ITS | Encounter Summary ---
Author Organization [facility] Address [address] [place] [id number] Care Team Providers Care Vp Director Of Creative Strategy Name Role Phone Loan Vick MD Primary Care Provider +1- [phone] Reason for Visit * Reason Comments Med Refill Encounter Details Date Type Department Care Team (Late st Contact Info) Description 11/23/2024 Refill [facility]IC[facility] [address] [facility] [address] [place] [address] Deven Chinchilla MD [address] [facility] [address] [place] [address] Social History Tobacco Use Types Packs/Day Years [...] on filedocumented in this encounter Care Teams Vp Director Of Creative Strategy Relationship Specialty Start Date End Date Loan Vick MD [address] [place] [address] PCP - General Family Medicine 08/23/24 documented as of this encounter
--- OUTSIDE RECORDS SUMMARY | 2024-12-07 10:07 | XMS_ITS | Encounter Summary ---
Author Organization [place] [address] Care Team Providers Care Motorcoach Driver Name Role Phone Loan Vick MD Primary Care Provider +1- [phone] Encounter Details Date Type Department Care Team (Late st Contact Info) Description 08/30/2024 Orders Only SE Physical Therapy [facility] [address] [facility] [place] [address] Raquel Torres, PT [address] [place] [address] Social History Tobacco Use Types [...] on filedocumented in this encounter Care Teams Motorcoach Driver Relationship Specialty Start Date End Date Loan Vick MD [address] [place] [address] PCP - General Family Medicine 03/23/16 documented as of this encounter
--- OUTSIDE RECORDS SUMMARY | 2024-12-07 10:07 | XMS_ITS | Encounter Summary ---
Author Organization [facility] Address [address] [facility] [place] [address] Care Team Providers Care Firearms Inspector Name Role Phone Loan Vick MD Primary Care Provider +1- [phone] Encounter Details Date Type Department Care Team (Latest Contact Info) Description 01/25/2017 Lab Requisition [facility] [address] [place] [id number] Claudia Granado, KJ Encounter for screening for [...] Detected Not Detected 01/26/2017 11:41 AM EDT [facility] Neisseria gonorrhoeae Not Detected Not Detected 01/26/2017 11:41 AM EDT [facility] Swab (specimen) 01/25/2017 1 0:19 AM EDT 01/25/2017 5:18 PM EDT Narrative [facility] - 01/26/2017 11:41 AM EDT Testing methodology is food and drug inspector mediated amplification (TMA) using the Aptima Combo 2 assay from [employer]. A negative result does not completely rule [...] were validated by [facility] laboratory. This assay is FDA cleared to test the following specimens: clinician-collected endocervical, vaginal and male urethral swab specimens, patient collected vaginal specimens within a clinic setting, Thin Prep Specimens in PreservCyt Solution, and first-stream, unpreserved male urine specimens. Testing on female urine is not FDA approved by this methodology, but has been developed and validated by the [facility] laboratory. Detailed methodology is available upon request. Claudia Granado APRN MICROBIOLOGY - GENERAL ORD ERABLES Final Result [facility] [address] [place] [address] documented in this encounter Visit Diagnoses Diagnosis [...] documented as of this encounter Care Teams Firearms Inspector Relationship Specialty Start Date End Date Loan Vick MD [address] [place] [address] PCP - General Family Medicine 03/23/16 documented as of this encounter
--- NOTE | 2024-12-07 10:26 | US_ITS ---
PROCEDURE: US OB BIOPHYSICAL PROFILE CLINICAL INDICATION: history of stillbirth/md order COMPARISON: US US OB <= 14 WEEKS FETUS from 06/04/2024 US US OB BIOPHYSICAL PROFILE from 10/29/2024 US US OB BIOPHYSICAL PROFILE from 11/14/2024 US US OB BIOPHYSICAL PROFILE from 11/23/2024 FINDINGS: Transabdominal sonographic images of the uterus were obtained. From her established due date she is 34weeks 1day. The following parameters are obtained: Viable Fetus in the cephalic presentation with a lateral placenta grade 2. The cervix measures 3.58 cm in length. Measurements: heart Rate = 138bpm Amniotic fluid index: 12.21cm, MVP 4.84 cm Qualitative AFV:2 Breathing movements: 2 Gross Body Movements: 2 Tone: 2 Biophysical profile score: 8 No obvious anomalies evident.Kidneys, stomach, bladder, four-chamber heart, three-vessel cord appear normal. IMPRESSION: 1. Viable fetus in the cephalic presentation with a lateral placenta grade 2. 2. The fluid is within normal limits with an amniotic fluid index 12.21 cm, MVP 4.84 cm. 3. Biophysical profile is 8/8 with good breathing movement and movement seen. 4. Limited anatomical scan appears normal. Dictated by: Driss Rice MD 12/07/2024 15:31 Driss Rice MD in OV 12/07/2024 15:31
[2024-12-07 10:27] VITALS: BMI 41.3
[2024-12-07 10:28] VITALS: BP 124/72; PULSE 96; RESP 18; TEMP 37.2; O2SAT 97; BMI 41.3
[2024-12-07 10:42] LABS: Microscopic, Urine URINE MICROSCOPIC (MICROSCOPIC)
[2024-12-07 10:43] LABS: Bilirubin,Urine Negative (Negative); Color,Urine YELLOW (Yellow); Glucose,Urine (UA) Negative (Negative); Ketones,Urine Negative (Negative); Leukocyte Esterase,Urine 1+ (Negative); PH,Urine 7.0 (5.0-8.5); Protein,Urine Negative (Negative); Specific Gravity, Urine 1.020 (1.005-1.030); Urobilinogen,Urine 0.2 EU/dl (0.2)
[2024-12-07 10:55] LABS: Bacteria,Urine 2+ /lpf
[2024-12-07] MEDS: LACTATED RINGERS 1000ML 2,000 ML 999 ML IV (10:57)
[2024-12-07 11:04] LABS: Hematocrit 31.7 % (37.0-47.0); Hemoglobin 10.7 g/dL (12.2-16.2); Immature Granulocytes % 1.4 %; Mean Corpuscular HGB Conc 33.8 g/dL (31.8-35.4); Mean Corpuscular Hemoglobin 30.5 pg (27.0-31.2); Mean Corpuscular Volume 90.3 fl (81-99); Nucleated Red Blood Cells % 0 %; Platelet Count 153 K/mm3 (142-424); Red Blood Count 3.51 M/mm3 (4.20-5.40); Red Cell Distribution Width-SD 46.8 fL; White Blood Count 9.5 K/mm3 (4.8-10.8)
[2024-12-07 11:12] LABS: Albumin Level 3.2 g/dl (3.5-5.0); Chloride 111 mmol/L (98-107); Potassium 3.7 mmoL/L (3.5-5.1); Sodium 135 mmol/L (136-145)
[2024-12-07 11:15] LABS: Alanine Aminotransferase 11 U/L (12-78); Albumin/Globulin Ratio 1.3 (1.1-1.8); Alkaline Phosphatase 137 U/L (38-126); Anion Gap 7.7 mEq/L (5-15); Aspartate Amino Transferase 21 U/L (14-36); Bilirubin,Total 0.4 mg/dl (0.2-1.3); Blood Urea Nitrogen 10 mg/dl (7-17); Calcium 8.6 mg/dl (8.4-10.2); Carbon Dioxide 20 mmol/L (22.0-30.0); Creatinine Clearance Estimated 169 mL/min (50-200); Creatinine,Serum 0.40 mg/dl (0.52-1.04); Estimated Glomerular Filt Rate 193 ml/min (>60); GFR (African American) 233 ML/MIN (>60); Globulin 2.5 g/dL (1.3-3.2); Glucose 81 mg/dl (74-100); Total Protein,Serum 5.7 g/dl (6.3-8.2)
[2024-12-07 15:14] LABS: Fetal Fibronectin (Rapid) Negative (Negative)
[2024-12-07 20:46] VITALS: BP 106/59; PULSE 83; RESP 16; TEMP 36.8; O2SAT 98
[2024-12-07 20:51] LABS: POC Glucose,Bedside 124 (70-110)
[2024-12-07] MEDS: ASPIRIN EC 81MG TABLET 81 MG PO (20:58)
[2024-12-07] MEDS: INSULIN GLARGINE 100 UNITS/ML 3ML FLEXPEN 5 UNIT SUBCUT (21:02)
[2024-12-08 03:37] VITALS: BP 100/56; PULSE 76; RESP 15; TEMP 36.7; O2SAT 99
--- NOTE | 2024-12-08 07:23 | US_ITS ---
PROCEDURE INFORMATION: Exam: US Biophysical Profile Without Non-Stress Test Exam date and time: 12/08/2024 8:08 AM Age: 24 years old Clinical indication: Other: HX of stillbirth; ; Additional info: Repeat bpp, HX of stillbirth TECHNIQUE: Imaging protocol: US biophysical profile without non-stress testing. COMPARISON: US OB BIOPHYSICAL PROFILE 12/07/2024 10:47 AM FINDINGS: BIOPHYSICAL PROFILE: breathing (BPP): 2 out of 2. gross body movement (BPP): 2 out of 2. tone (BPP): 2 out of 2. Amniotic fluid (BPP): 2 out of 2. IMPRESSION: Normal biophysical profile score is 8 out of 8.
[2024-12-08 09:01] VITALS: BP 107/61; PULSE 72; RESP 18; TEMP 36.7; O2SAT 100
--- NOTE | 2024-12-08 10:24 | EXP.HPDC ---
General Admission date:: 12/07/24 Discharge date: 12/08/24 *Admission Date: 12/07/24 *Chief complaint: Urinary urgency, frequency and lower abdominal swelling and tenderness *History of present illness: Mrs Pili Kyle is a 24 yo at 34w1d who presented to [facility] L&D with complaint of urinary urgency, frequency and lower abdominal swelling and tenderness. She has history of stillbirth. Prior to stillbirth she had lower abdominal swelling and tenderness. She completed course of Keflex last week for UTI. complicated by gestational diabetes on insulin and maternal obesity. During NST contractions were noted. FFN was performed and was negative. Cervical exam 3. She received IV Rocephin x 1 dose and IV fluids. She was monitored overnight. NST reactive. Contractions stopped. BPP this morning was 8/8. Cervical exam unchanged. She feels well this morning. Baby is active. [facility] Disclaimer: The information contained in this section may have been updated after the patient was seen, as this information can be updated by other users. Medical History (Updated 12/08/24 @ 10:47 by Tata Cartwright DO) History of stillbirth Maternal obesity affecting , antepartum 34 weeks gestation of Hematuria Rectal or anal pain Retained products of conception, endometritis fever Endometritis hypertension anemia Renal colic Viral illness Asthmatic bronchitis Cornea transplant recipient Cataract Surgical History Hx of dilation and curettage Family History Sister Lupus Father Diabetes Grandmother Cancer Social History Smoking Status: Never smoker alcohol intake: never substance use type: denies use current occupational status: employed Travel in the last 8 weeks?: None household members: spouse housing: house caffeine: No Have you lived/traveled outside US in past 30 days?: No Contact w/someone who lives/traveled outside US past 30 days?: No Exposure to someone with infectious disease in past 14 days?: No Do you have a fever (greater than 100.4 F or 38 C)?: No Have you tested positive for COVID-19?: No Exposed to someone with COVID-19 in past 14 days?: No Do you have a sore throat?: No Do you have a cough?: No Do you have any weakness?: No Do you have any diarrhea?: No Are you experiencing any unusual bleeding?: No Do you have any muscle aches/pain?: No Do you have any abdominal pain?: No Are you experiencing loss of taste or smell?: No Other Medical History Have you received the Flu Vaccine for this season: No Have you received the Pneumonia Vaccine: No Review of Systems Review of Systems Review of systems:: pertinent systems reviewed and negative unless documented below *Genitourinary Comments: + urinary urgency and frequency Integumentary/Breasts Comments: + swelling and tenderness of panus Exam Data for Last 24 hours Vital signs and Labs for Last 24 Hours: Temp Pulse Resp BP Pulse Ox O2 Del Method 98.1 F 72 18 107/61 L 100 Room Air 12/08/24 09:01 12/08/24 09:01 12/08/24 09:01 12/08/24 09:01 12/08/24 09:01 12/08/24 09:01 Laboratory Results - last 24 hr 12/07/24 10:09: Urine Color Yellow, Urine Appearance Clear, Urine pH 7.0, Ur Specific [place] 1.020, Urine Protein Negative, Urine Glucose (UA) Negative, Urine Ketones Negative, Urine Blood Trace-i, Urine Nitrate Negative, Urine Bilirubin Negative, Urine Urobilinogen 0.2, Ur Leukocyte Esterase 1+ A, Urine RBC 3-5, Urine WBC 5-10, Ur Squamous Epith Cells 10-20, Urine Bacteria 2+ 12/07/24 10:39: WBC 9.5, RBC 3.51 L, Hgb 10.7 L, Hct 31.7 L, MCV 90.3, MCH 30.5, MCHC 33.8, RDW 14.4, Plt Count 153, MPV 12.1 H, Neut % (Auto) 70.3, Lymph % (Auto) 21.1, [place] % (Auto) 6.5, Eos % (Auto) 0.4, Baso % (Auto) 0.3, Neut # (Auto) 6.7, Lymph # (Auto) 2.0, [place] # (Auto) 0.6, Eos # (Auto) 0.0, Baso # (Auto) 0.0, Sodium 135 L, Potassium 3.7, Chloride 111 H, Carbon Dioxide 20 L, Anion Gap 7.7, BUN 10, Creatinine 0.40 L, Estimated Creat Clear 169, Estimated GFR 193, Est GFR ( Amer) 233, Glucose 81, Calcium 8.6, Total Bilirubin 0.4, AST 21, ALT 11 L, Alkaline Phosphatase 137 H, Total Protein 5.7 L, Albumin 3.2 L, Globulin 2.5, Albumin/Globulin Ratio 1.3 12/07/24 14:00: Fibronectin Negative 12/07/24 20:44: POC Glucose 124 H I & O for Last 24 hours: Intake & Output 12/05/24 12/06/24 12/07/24 12/08/24 23:59 23:59 23:59 23:59 Intake Total 2049 Balance 2049 Weight 226 lb Constitutional Constitutional: no acute distress and cooperative *Routine HEENT Exam Head: Present normocephalic and atraumatic Eye: Absent conjunctivae pink ENT: Present mucous membranes moist *Routine Neck Exam Neck: Present full ROM *Routine Respiratory Exam Respiratory: Present CTA bilaterally and normal respiratory effort *Routine Cardiovascular Exam Cardiovascular: Present RRR *Routine Abdominal Exam Abdominal: Present soft (Gravid); Absent tenderness *Routine Rectal Exam Rectal:: deferred *Routine Genitalia Exam Genitalia:: normal female *Routine Extremities Exam Extremities: Present full ROM; Absent edema or calf tenderness *Routine Neurological Exam Neurological: Present alert, moving all extremities and normal speech Routine Psychiatric Exam Psychiatric: Present normal affect and cooperative Meds Home Medications and Allergies Home Medications ?Medication ?Instructions ?Recorded ?Confirmed ?Type desvenlafaxine succinate 100 mg 100 mg PO DAILY 04/05/24 12/07/24 History tablet,extended release 24 hr hydroxyzine HCl 25 mg tablet 25 mg PO DAILY 04/05/24 12/07/24 History vits no.126-ferrous fum 1 tab PO DAILY 05/25/24 12/07/24 History 28 mg iron-folic acid 800 mcg tablet (Classic ) aspirin 81 mg tablet 81 mg PO DAILY 10/09/24 12/07/24 History blood sugar diagnostic (Accu-Chek #10 ea 11/01/24 12/06/24 History Guide test strips) blood-glucose meter (Accu-Chek #1 ea 11/01/24 12/06/24 History Guide Me Glucose Meter) insulin glargine 100 unit/mL (3 5 unit (0.05 mL) SQ HS #15 mL 11/01/24 12/07/24 Rx mL) subcutaneous pen (Lantus Solostar U-100 Insulin) lancets (Accu-Chek Softclix #100 ea 11/01/24 12/06/24 History Lancets) blood-glucose sensor (Dexcom G6 #3 ea 11/02/24 12/06/24 Rx Sensor device) blood-glucose transmitter (Dexcom #1 ea 11/02/24 12/06/24 Rx G6 Transmitter device) blood-glucose,director underwriter sales,cont #1 ea 11/02/24 12/06/24 Rx (Dexcom G6 Clinical Administrator) pen needle, diabetic 31 gauge x #100 ea 11/02/24 12/06/24 Rx 1/4 (CareTouch Pen Needle) pen needle, diabetic 32 gauge x #1,200 ea 11/08/24 12/06/24 History (Nia 2nd Gen Pen Needle) New Prescriptions to Start Prescriptions: Allergies Allergy/AdvReac Type Severity Reaction Status Date / Time amitriptyline (From Elavil) Allergy Severe Seizure Verified 12/06/24 14:44 raspberry Allergy Severe Anaphylaxis Verified 12/06/24 14:44 Penicillins Allergy Verified 12/06/24 14:44 Hospital Course Hospital Course Hospital Course: Mrs Pili Kyle is a 24 yo at 34w1d who presented to [facility] L&D with complaint of urinary urgency, frequency and lower abdominal swelling and tenderness. She has history of stillbirth. Prior to stillbirth she had lower abdominal swelling and tenderness. She completed course of Keflex last week for UTI. complicated by gestational diabetes on insulin and maternal obesity. During NST contractions were noted. FFN was performed and was negative. Cervical exam 07/15/-3. She received IV Rocephin x 1 dose and IV fluids. She was monitored overnight. NST reactive. Contractions have stopped. BPP this morning was 8/8. Cervical exam unchanged. She feels well this morning. Baby is active. She was discharged home with labor precautions. She has BPP scheduled for 12/10/24. Instructed her to follow-up in the office with Dr. Gilbert next week. Results Data Completed and Pending Labs on day of discharge: Labs from last 24 hours 12/07/24 12/07/24 12/07/24 20:44 14:00 10:39 WBC 9.5 RBC 3.51 L Hgb 10.7 L Hct 31.7 L MCV 90.3 MCH 30.5 MCHC 33.8 RDW 14.4 Plt Count 153 MPV 12.1 H Neut % (Auto) 70.3 Lymph % (Auto) 21.1 [place] % (Auto) 6.5 Eos % (Auto) 0.4 Baso % (Auto) 0.3 Neut # (Auto) 6.7 Lymph # (Auto) 2.0 [place] # (Auto) 0.6 Eos # (Auto) 0.0 Baso # (Auto) 0.0 Sodium 135 L Potassium 3.7 Chloride 111 H Carbon Dioxide 20 L Anion Gap 7.7 BUN 10 Creatinine 0.40 L Estimated Creat Clear 169 Estimated GFR 193 Est GFR ( Amer) 233 Glucose 81 POC Glucose 124 H Calcium 8.6 Total Bilirubin 0.4 AST 21 ALT 11 L Alkaline Phosphatase 137 H Total Protein 5.7 L Albumin 3.2 L Globulin 2.5 Albumin/Globulin Ratio 1.3 Urine Color Urine Appearance Urine pH Ur Specific [place] Urine Protein Urine Glucose (UA) Urine Ketones Urine Blood Urine Nitrate Urine Bilirubin Urine Urobilinogen Ur Leukocyte Esterase Urine RBC Urine WBC Ur Squamous Epith Cells Urine Bacteria Fibronectin Negative 12/07/24 10:09 WBC RBC Hgb Hct MCV MCH MCHC RDW Plt Count MPV Neut % (Auto) Lymph % (Auto) [place] % (Auto) Eos % (Auto) Baso % (Auto) Neut # (Auto) Lymph # (Auto) [place] # (Auto) Eos # (Auto) Baso # (Auto) Sodium Potassium Chloride Carbon Dioxide Anion Gap BUN Creatinine Estimated Creat Clear Estimated GFR Est GFR ( Amer) Glucose POC Glucose Calcium Total Bilirubin AST ALT Alkaline Phosphatase Total Protein Albumin Globulin Albumin/Globulin Ratio Urine Color Yellow Urine Appearance Clear Urine pH 7.0 Ur Specific [place] 1.020 Urine Protein Negative Urine Glucose (UA) Negative Urine Ketones Negative Urine Blood Trace-i Urine Nitrate Negative Urine Bilirubin Negative Urine Urobilinogen 0.2 Ur Leukocyte Esterase 1+ A Urine RBC 3-5 Urine WBC 5-10 Ur Squamous Epith Cells 10-20 Urine Bacteria 2+ Fibronectin DS: Diagnosis Discharge Diagnosis (1) 34 weeks gestation of : Status: Acute Code(s): Z3A.34 - 34 weeks gestation of (2) Gestational diabetes: Status: Acute Code(s): O24.419 - Gestational diabetes mellitus in , unspecified control Qualifiers: Gestational diabetes mellitus control: insulin-controlled Trimester: third trimester Qualified Code(s): O24.414 - Gestational diabetes mellitus in , insulin controlled (3) Maternal obesity affecting , antepartum: Status: Acute Code(s): O99.210 - Obesity complicating , unspecified trimester Qualifiers: Obesity type affecting : unspecified obesity Qualified Code(s): O99.210 - Obesity complicating , unspecified trimester (4) History of stillbirth: Status: Acute Code(s): Z87.59 - Personal history of other complications of , childbirth and the puerperium Discharge Plan Disposition Patient Disposition: Home, Self-Care Condition: Good Follow up Plan Follow up with: Iram Gilbert DO [Staff Physician, [facility]] - 1 week Prescriptions/Medication Reconciliation: Continued desvenlafaxine succinate 100 mg tablet extended release 24 hr 100 mg PO DAILY Patient Comments: TAKE 1 TABLET BY MOUTH DAILY. hydroxyzine HCl 25 mg tablet 25 mg PO DAILY Patient Comments: TAKE 1 TABLET BY MOUTH 3 TIMES DAILY NEEDED FOR ANXIETY. aspirin 81 mg tablet 81 mg PO DAILY Classic 28 mg iron- 800 mcg tablet 1 tab PO DAILY (DME) blood-glucose meter [Accu-Chek Guide Me Glucose Mtr] Misc See Rx Instructions .ROUTE .MEDSUPPLY Qty: 1 Rx Instructions: As directed (DME) Accu-Chek Guide test strips Strip See Rx Instructions .ROUTE .MEDSUPPLY Qty: 10 Patient Comments: USE INSTRUCTED. FASTING, 2 HOURS POSTPRANDIAL. Rx Instructions: As directed (DME) lancets [Accu-Chek Softclix Lancets] Misc See Rx Instructions .ROUTE .MEDSUPPLY Qty: 100 Patient Comments: USE INSTRUCTED. FASTING, 2 HOURS POSTPRANDIAL. Rx Instructions: As directed insulin glargine [Lantus Solostar U-100 Insulin] 100 unit/mL (3 mL) insulin pen 5 unit SQ HS Qty: 15 2RF Rx Instructions: inject 5 units nightly (DME) Dexcom G6 Sensor Device See Rx Instructions .Route Qty: 3 0RF Rx Instructions: As directed (DME) Dexcom G6 Clinical Administrator Misc See Rx Instructions .Route Qty: 1 0RF Rx Instructions: As directed (DME) Dexcom G6 Transmitter Device See Rx Instructions .Route Qty: 1 0RF Rx Instructions: As directed (DME) pen needle, diabetic [Nia 2nd Gen Pen Needle] 32 gauge x 5/32 needle See Rx Instructions .ROUTE .[facility] Qty: 1200 Patient Comments: USE WITH LANTUS ONCE DAILY Rx Instructions: As directed (DME) pen needle, diabetic [CareTouch Pen Needle] 31 gauge x 1/4 needle See Rx Instructions .Route Qty: 100 1RF Rx Instructions: As directed Problem Reconciliation Problems Reviewed?: Yes Patient Discharge Instructions ACTIVITY: Limited activity DIET: continue same diet Patient Instructions: How to Do Kick Counts, Antepartum Care, False Labor Print Language: Lithuanian Providers Primary Care Provider: Loan Vick Admit Provider: Tata Cartwright Attending Provider: Tata Cartwright
--- NOTE | 2024-12-08 11:00 | HMH.PHAINT1 ---
Pharmacy Intervention Comments: MED LIST COMPARED TO FILL HX.
== END 2024-12-08 13:01 | disposition home or self-care (01) ==
LOC: OBOUT 17:06 → OB 17:06
PROVIDERS: Obstetrics & Gynecology; Admitting Provider Obstetrics & Gynecology; PCP Family Medicine; Visit Provider Obstetrics & Gynecology
DX: O24.414 Gestational diabetes mellitus in pregnancy, insulin controlled (principal); O23.43 Unspecified infection of urinary tract in pregnancy, third trimester; O99.213 Obesity complicating pregnancy, third trimester; E66.9 Obesity, unspecified; N39.0 Urinary tract infection, site not specified; R39.15 Urgency of urination; Z87.59 Personal history of other complications of pregnancy, childbirth and the puerperium; Z3A.34 34 weeks gestation of pregnancy; Z37.9 Outcome of delivery, unspecified; Z88.8 Allergy status to other drugs, medicaments and biological substances; Z91.018 Allergy to other foods; Z88.0 Allergy status to penicillin
CPT/HCPCS: 36415; 59025; 76819; 80053; 81001; 82731; 82962; 85025; 96360; 96361; 96365; 96372; 96374; G0378; J0696; J7120

== ENCOUNTER 2024-12-10 14:57 | Outpatient (CLI) | payer BC, SELFPAY ==
--- OUTSIDE RECORDS SUMMARY | 2024-10-25 13:26 | XMS_ITS | Encounter Summary ---
Author Organization [facility] Address [address] [place] [id number] Care Team Providers Care Engine Lathe Set Up Operator Tool Name Role Phone Loan Vick MD Primary Care Provider +1- [phone] Reason for Referral * Diagnostic Imaging (Routine) - Closed Specialty Diagnoses / Procedures Referred By Contac t Referred To Contact Radiology Diagnoses History of IUFD Procedures [facility] Diagnostic Happy [place] Shameka Chandler MD [address] [place] [address] Phone: tel: fax: Referral ID Status Reason Start Date Expiration Date Visits Re quested Visits Authorized Closed 10/02/2024 01/01/2026 1 1 Reason for Visit * Diagnostic Imaging (Routine) - Closed Specialty Diagnoses / Procedures Referred By Kennedy messina Referred To Contact Radiology Diagnoses History of IUFD Procedures [facility] Diagnostic [place] Shameka Chandler MD [address] [address] Phone: tel: fax: Referral ID Status Reason Start Date Expiration Date Visits Re quested Visits Authorized Closed 10/02/2024 01/01/2026 1 1 Encounter Details Date Type Department Care Team (Late st Contact Info) Description 10/25/2024 1:26 PM EDT - 10/25/2024 11:59 PM EDT Hospital Encounter [facility] [address] [facility] [place] [id number] Shameka Chandler MD [address] [place], [place] [id number] History of IUFD Discharge Disposition: Home or [...] this encounter Medications at Time of Discharge Accu-Chek Softclix Lancets lancets USE INSTRUCTED. FASTING, 2 HOURS POSTPRANDIAL. 10/25/2024 BABY ASPIRIN PO Take 1 tablet by mouth Daily. Blood Glucose Monitoring Suppl (Accu-Chek Guide Me) w/Device kit 10/25/2024 desvenlafaxine (PRISTIQ) 50 MG 24 hr tablet Take 2 tablets by mouth Daily. 09/06/2023 famotidine (PEPCID) 20 MG tablet Take 1-2 tablets by mouth 2 (Two) Times a Day As Needed for Heartburn. glucose monitor monitoring kit Use 1 each As Needed (fasting, 2 hours postprandial). 1 each 10/25/2024 hydrOXYzine (ATARAX) 25 MG tablet Take 1 tablet by mouth 3 (Three) Times a Day As Needed. 09/13/2023 Vit-Fe Fumarate-FA ( vitamin 27-0.8) 27-0.8 MG tablet tablet Take 1 tablet by mouth Daily. glucose blood test strip Use as instructed. Fasting, 2 hours postprandial 50 each 10/25/2024 5 documented as of this encounter Plan of Treatment Not on file documented as of this encounter Procedures Procedure Name Priority Date/Time Associated Diagnosis Comments [facility] Routine 10/25/2024 2:00 PM EDT History of IUFD documented in this encounter Results * [facility] (10/25/2024 2:00 PM EDT) Anatomical Region Laterality Modality Ultrasound 10/25/2024 1:37 PM EDT Narrative 10/25/2024 2:13 PM EDT PAT NAME: SANDEEP BRITO MED REC#: [id number] DA: [id number] PAT GEND: F PAT TYPE: O EXAM TED: [id number] REF PHYS HARINI MONTEZ Comparison Studies The [...] EFW (oz) 11 oz EFW by: Hadlock (ETT-MD-XP-FL) Extended Cav. septi pel. tr 5.8 mm Contact Officer 6.4 mm CM 6.6 mm 47% Nicolaides [...] Normal Heart / Thorax 3-vessel view: Normal 7-aickyi-xszgjnz view: normal Cord insertion: Normal Stomach: Appears [...] 1 week given size. Coding ======= Description: 80130-98 Follow Up Tap Dancer: RT Lashon Wolf , [facility] Physician: Deven Chinchilla MD, FACOG Electronically signed by: Deven Chinchilla MD, FACOG at: 14:13 Procedure Note Deven Chinchilla MD - 10/25/2024 PAT NAME: SANDEEP BRITO MED REC#: [id number] DA: [id number] PAT GEND: F PAT TYPE: O EXAM TED: [id number] REF PHYS MELIDA HARINI Comparison Studies The findings of this study are compared to the prior ultrasound studydated 09/27/24 Patient Status Outpatient Indication ======== 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 MO BMI 42. H/O seizures. Previous child with cerebralpalsy. Maternal Assessment Pbzohr317 cm Height (ft)5 ft Height (in)1 in Hwuzov852 kg Weight (lb)221 lb BMI42.27 kg/m Method ======= Transabdominal ultrasound examination. View: Suboptimal view: limited byfetal position ========= Cummins . Number of fetuses: 1 Dating ====== Method of dating:based on stated ROHINI GA by prior [id number] w + 0 d ROHINI by prior assessment:01/17/2025 Ultrasound examination on:10/25/2024 GA by U/S based upon:AC, BPD, Femur, HC GA by U/S30 w + 5 d ROHINI by U/S:12/29/2024 Previous dating:based on stated ROHINI, selected on 09/27/2024 Agreed ROHINI of previous datin01/17/2025 Assigned:based on stated ROHINI, selected on 10/25/2024 Assigned GA28 w + 0 d Assigned ROHINI:01/17/2025 [id number] d Biometry Standard BPD74.8 mm 30w 0d 92% Hadlock ZCN489.5 mm 32w 6d >99% Sindy HC280.1 mm 30w 5d 92% Hadlock Cerebellum tr34.6 mm 29w 0d 79% Hill AC278.9 mm 32w 0d >99% Hadlock Femur57.0 mm 29w 6d 86% Hadlock Eyewzcw46.4 mm 29w 0d 72% Sindy HC / AC1.00 EFW1,686 g 30w 5d >99% Hadlock EFW (lb)3 lb EFW (oz)11 oz EFW by:Hadlock (ISD-IE-GD-FL) Extended Cav. septi pel. tr5.8 mm Vp6.4 mm CM6.6 mm 47% Nicolaides Head / Face / Neck Cephalic index0.74 6% Nicolaides Extremities / Bony Struc FL / BPD0.76 FL / HC0.20 FL / AC0.20 Other Structures [id number] bpm General Evaluation Cardiac activity present. FHR [...] LVOT view:Normal Heart / Thorax 3-vessel view:Normal 9-fhdrxm-fakpgde view:normal Cord insertion:Normal Stomach:Appears normal Kidneys:Appears normal Bladder:Appears normal Gender:female Wants to know gender:yes Maternal Structures Uterus / Cervix Cervix:Visualized Approach:Transabdominal Cervical ggcxyv47.5 mm Doppler Arterial Umbilical A PI0.87 20% [...] x 1 week given size. Coding ======= Description:99081-39 Follow Up Tap Dancer: RT Lashon Wolf , RDMS Physician: Deven Chinchilla MD, ZULEMAOG Electronically signed by: Deven Chinchilla MD, ZULEMAOG at: 14:13 us Shameka Chandler MD IMG US ORDERABLES Final Result documented in this encounter Visit Diagnoses Diagnosis History of IUFD documented in this encounter Care Teams Engine Lathe Set Up Operator Tool Relationship Specialty Start Date End Date Loan Vick MD [address] [place] [address] PCP - General Family Medicine 08/23/24 documented as of this encounter
--- OUTSIDE RECORDS SUMMARY | 2024-10-25 14:45 | XMS_ITS | Encounter Summary ---
Author Organization [facility] Address [address] [place] [id number] Care Team Providers Care Campaign Management Specialist Name Role Phone Loan Vick MD Primary Care Provider +1- [phone] Reason for Referral * Diagnostic Imaging (Routine) - Authorized Specialty Diagnoses / Procedures Referred By Contact Referred To Contact Obstetrics and Gynecology Diagnoses History of IUFD Procedures [facility] Deven Chinchilla MD [address] [facility] [address] [place] [address] Phone: tel: fax: [facility] [address] [facility] [address] [place] [address] Phone: tel: fax: Referral ID Status Reason Start Date Expiration Date V isits Requested Visits Authorized [id number] Authorized 10/25/2024 01/24/2026 2 2 Reason for Visit * Reason Comments hx 39 week IUFD; MO; hx seizures; prev. child with CP Encounter Details Date Type Department Care Team (Late Contact Info) Description 10/25/2024 2:45 PM EDT Office Visit [facility] [address] [facility] [address] [place] [id number] Deven Chinchilla MD [address] [facility] [address] [place] [address] History of IUFD (Primary Dx) Social History [...] Sign Reading Time Taken Comments Blood Pressure 100/69 10/25/2024 1:32 PM EDT Pulse - - Temperature - - Respiratory Rate - - Oxygen Saturation - - Inhaled Oxygen Concentration - - Weight 101 kg (221 lb 9.6 oz) 10/25/2024 1:32 PM EDT Height - - Body Mass Index 41.87 11/09/2023 11:11 AM EDT documented in this encounter Progress Notes * Alessandra Sparks RN - 10/25/2024 2:45 PM EDT Patient denies any leaking of fluid or vaginal bleeding. She reports occasional rosie mcwilliams contractions. NIPT negative. Patient reports next follow-up appointment with Dr. Gilbert's office is 11/01. * Deven Chinchilla MD - 10/25/2024 2:45 PM EDT Maternal/ Medicine Consult Note Date: 10/25/2024 Name: Sandeep Brito : 2000 Referring Provider: Harini Gilbert DO Chief Complaint hx 39 week IUFD; MO; hx seizures; prev. child with CP Subjective History of Present Illness: Sandeep Brito is a 23 y.o. 28w0d who presents today for history of IUFD ROHINI: Estimated Date of Delivery: 01/17/25 ROS: Otherwise Noted in HPI Current Outpatient Medications: BABY ASPIRIN PO, Take 1 tablet by mouth Daily., Disp: , Rfl: desvenlafaxine (PRISTIQ) 50 MG 24 hr tablet, Take 2 tablets by mouth Daily., Disp: , Rfl: famotidine (PEPCID) 20 MG tablet, Take 1-2 tablets by mouth 2 (Two) Times a Day As Needed for Heartburn., Disp: , Rfl: hydrOXYzine (ATARAX) 25 MG tablet, Take 1 tablet by mouth 3 (Three) Times a Day As Needed., Disp: ,Rfl: Vit-Fe Fumarate-FA ( vitamin 27-0.8) 27-0.8 MG tablet tablet, Take 1 tablet by mouth Daily., Disp: , Rfl: Objective Vital Signs BP 100/69 Wt 101 kg (221 lb 9.6 oz) LMP 11/02/2023 (Exact Date) Estimated body mass index is 41.87 kg/m?? as calculated from the following: Height as of 11/09/23: 154.9 cm (61 ). Weight as of this encounter: 101 kg (221 lb 9.6 oz). Ultrasound Impression: See Viewpoint Assessment and Plan Sandeep Brito is a 23 y.o. 28w0d who presents today for history of IUFD Diagnoses and all orders for this visit: 1. History of IUFD (Primary) Assessment & Plan: Patient presents for follow-up growth ultrasound secondary to history of IUFD. Today's ultrasound shows concern for macrosomia with overall weight measuring greater than 99th percentile likely secondary to abdominal circumference greater than 99th percentile. We discussed that overall weight is likely driven by abdominal circumference. Amniotic fluid is overall normal though is on the upperlimits of normal at 23 cm. Patient reports that she had a 1 hour Glucola this week that was in the 90s. Given size and KALEIGH we have discussed checking blood sugars for 1 week and for patient to take to her appointment with primary ASSISTANT BOILER OPERATOR next week. Patient reports history of decreasedfetal movement for the past day or so though has felt some movement. movement noted on ultrasound today. We discussed careful return precautions regarding decreased movement and to reportto primary ASSISTANT BOILER OPERATOR if decreased movement has occurred. Follow Up 4-week I spent 20 minutes caring for the patient on the day of service. This included: obtaining or reviewing a separately obtained medical history, reviewing patient records, performing a medically appropriate exam and/or evaluation, counseling or educating the patient/family/caregiver, ordering medications, labs, and/or procedures and documenting such in the medical record. This does not include time spent on review and interpretation of other tests such as ultrasound or the performance of other procedures such as amniocentesis or CVS. Deven Chinchilla MD, FACOG Maternal Medicine, [facility] * Deven Chinchilla MD - 10/25/2024 1:57 PM EDTAssociated Problem(s): History of IUFD Patient presents for follow-up growth ultrasound secondary to history of IUFD. Today's ultrasound shows concern for macrosomia with overall weight measuring greater than 99th percentile likely secondary to abdominal circumference greater than 99th percentile. We discussed that overall weight is likely driven by abdominal circumference. Amniotic fluid is overall normal though is on the upperlimits of normal at 23 cm. Patient reports that she had a 1 hour Glucola this week that was in the 90s. Given size and KALEIGH we have discussed checking blood sugars for 1 week and for patient to take to her appointment with primary ASSISTANT BOILER OPERATOR next week. Patient reports history of decreasedfetal movement for the past day or so though has felt some movement. movement noted on ultrasound today. We discussed careful return precautions regarding decreased movement and to reportto primary ASSISTANT BOILER OPERATOR if decreased movement has occurred. documented in this encounter Plan of Treatment Scheduled Orders Name Type Priority Associated Diagnoses Orde r Schedule [facility] Imaging Routine History of IUFD Every 4 Weeks for 2 Occurrences starting 10/25/2024 until 10/25/2025, 1 completed documented as of this encounter Results * [facility] (11/28/2024 2:55 PM EDT) Anatomical Region Laterality Modality Ultrasound 11/28/2024 2:31 PM EDT Narrative 11/28/2024 3:06 PM EDT PAT NAME: SANDEEP BRITO MED REC#: [id number] DA: [id number] PAT GEND: F PAT TYPE: O EXAM TED: [id number] REF PHYS HARINI GILBERT Comparison Studies The findings of this study are compared to the prior ultrasound study dated 10/25/24 Patient Status Outpatient Indication ======== Gestational diabetes. 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 Previous child with cerebral palsy. Hx seizures. Morbid obesity BMI 43. Maternal Assessment Height 154 cm Height (ft) 5 ft Height (in) 1 in Weight 101 kg Weight (lb) 223 lb BMI 42.65 kg/m Method ======= Transabdominal ultrasound examination. View: Adequate view ========= Cummins . Number of fetuses: 1 Dating ====== Method of dating: based on stated ROHINI GA by prior assessment 32 w + 6 d ROHINI by prior assessment: 01/17/2025 Ultrasound examination on: 11/28/2024 GA by U/S based upon: AC, BPD, Femur, HC GA by U/S 35 w + 3 d ROHINI by U/S: 12/30/2024 Previous dating: based on stated ROHINI, selected on 10/25/2024 Agreed ROHINI of previous datin01/17/2025 Assigned: based on stated ROHINI, selected on 11/28/2024 Assigned GA 32 w + 6 d Assigned ROHINI: 01/17/2025 length 280 d Biometry Standard BPD 88.3 mm 35w 5d 98% Hadlock OFD 112.5 mm 38w 2d >99% Sindy HC 322.8 mm 36w 3d 94% Hadlock Cerebellum tr 43.7 mm 34w 0d 65% Hill AC 322.9 mm 36w 1d >99% Hadlock Femur 64.7 mm 33w 3d 53% Hadlock Humerus 55.8 mm 32w 3d 49% Sindy HC / AC 1.00 EFW 2,683 g 35w 3d 97% Hadlock EFW (lb) 5 lb EFW (oz) 15 oz EFW by: Hadlock (YIU-RF-HA-FL) Extended Cav. septi pel. tr 5.7 mm Traffic Workforce Representative 6.3 mm CM 5.7 mm 10% Nicolaides Head / Face / Neck Cephalic index 0.78 33% Nicolaides Extremities / Bony Struc FL / BPD 0.73 FL / HC 0.20 FL / AC 0.20 Other Structures FHR 122 bpm General Evaluation Cardiac activity present. FHR 122 bpm. movements present. Presentation cephalic. Placenta Placental site: posterior. Amniotic fluid Amount of AF: normal. MVP 5.8 cm. KALEIGH 18.9 cm. Q1 4.6 cm, Q2 3.3 cm, Q3 5.8 cm, Q4 5.1 cm. Anatomy Cranium: Normal Cavum septi pellucidi: Normal Cerebellum: Normal Cisterna magna: Normal Head / Neck Rt lateral ventricle: Normal Lt lateral ventricle: Normal Lips: Normal Profile: Normal Nose: Normal 4-chamber view: Appears normal RVOT view: suboptimal LVOT view: suboptimal Heart / Thorax 4-chamber view: patent foramen ovale 3-vessel view: Normal Stomach: Appears normal Kidneys: Appears normal Bladder: Appears normal Gender: female Wants to know gender: yes Biophysical Profile 2: breathing movements 2: Gross body movements 2: tone 2: Amniotic fluid volume 11/23 Biophysical profile score Consultation / Office Visit Office note to follow Impression Today's exam reveals a SIUP in cephalic presentation with biometry inconsistent with dates, EFW at the 97%ile and AC>99%ile. Limited anatomic survey appears normal. The KALEIGH and BPP are normal. Recommendation Follow-up as clinically indicated. Recommend follow up growth in your office in 4 weeks before IOL. Coding ======= Description: 46803-91 Follow Up Ultrasound Description: 01644-36 BPP without NST [place] Gatherer: Kristine Camp RDMS Physician: Deven Chinchilla MD, FACOG Electronically signed by: Deven Chinchilla MD, FACOG at: 15:06 Procedure Note Deven Chinchilla MD - 11/28/2024 PAT NAME: SANDEEP BRITO MED REC#: [id number] DA: 2000 PAT GEND: F PAT TYPE: O EXAM TED: [id number] REF PHYS HARINI GILBERT Comparison Studies The findings of this study are compared to the prior ultrasound studydated 10/25/24 Patient Status Outpatient Indication ======== Gestational diabetes. 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 Previous child with cerebral palsy.Hx seizures. Morbid obesity BMI 43. Maternal Assessment Hpgshj031 cm Height (ft)5 ft Height (in)1 in Odtqhj104 kg Weight (lb)223 lb BMI42.65 kg/m Method ======= Transabdominal ultrasound examination. View: Adequate view ========= Cummins . Number of fetuses: 1 Dating ====== Method of dating:based on stated ROHINI GA by prior czomnmtzgb34 w + 6 d ROHINI by prior assessment:01/17/2025 Ultrasound examination on:11/28/2024 GA by U/S based upon:AC, BPD, Femur, HC GA by U/S35 w + 3 d ROHINI by U/S:12/30/2024 Previous dating:based on stated ROHINI, selected on 10/25/2024 Agreed ROHINI of previous datin01/17/2025 Assigned:based on stated ROHINI, selected on 11/28/2024 Assigned GA32 w + 6 d Assigned ROHINI:01/17/2025 jacqni180 d Biometry Standard BPD88.3 mm 35w 5d 98% Hadlock CQO661.5 mm 38w 2d >99% Sindy HC322.8 mm 36w 3d 94% Hadlock Cerebellum tr43.7 mm 34w 0d 65% Hill AC322.9 mm 36w 1d >99% Hadlock Femur64.7 mm 33w 3d 53% Hadlock Hlkbkkr86.8 mm 32w 3d 49% Sindy HC / AC1.00 EFW2,683 g 35w 3d 97% Hadlock EFW (lb)5 lb EFW (oz)15 oz EFW by:Hadlock (BEP-FA-NF-FL) Extended Cav. septi pel. tr5.7 mm Vp6.3 mm CM5.7 mm 10% Nicolaides Head / Face / Neck Cephalic index0.78 33% Nicolaides Extremities / Bony Struc FL / BPD0.73 FL / HC0.20 FL / AC0.20 Other Structures KMR141 bpm General Evaluation Cardiac activity present. FHR 122 bpm. movements present. Presentation cephalic. Placenta Placental site: posterior. Amniotic fluid Amount of AF: normal. MVP 5.8 cm. KALEIGH 18.9 cm. Q1 4.6 cm,Q2 3.3 cm, Q3 5.8 cm, Q4 5.1 cm. Anatomy Cranium:Normal Cavum septi pellucidi:Normal Cerebellum:Normal Cisterna magna:Normal Head / Neck Rt lateral ventricle:Normal Lt lateral ventricle:Normal Lips:Normal Profile:Normal Nose:Normal 4-chamber view:Appears normal RVOT view:suboptimal LVOT view:suboptimal Heart / Thorax 4-chamber view:patent foramen ovale 3-vessel view:Normal Stomach:Appears normal Kidneys:Appears normal Bladder:Appears normal Gender:female Wants to know gender:yes Biophysical Profile 2: breathing movements 2: Gross body movements 2: tone 2: Amniotic fluid volume 8/8 Biophysical profile score Consultation / Office Visit Office note to follow Impression Today's exam reveals a SIUP in cephalic presentation with biometryinconsistent with dates, EFW at the 97%ile and AC>99%ile. Limited fetalanatomic survey appears normal. The KALEIGH and BPP are normal. Recommendation Follow-up as clinically indicated. Recommend follow up growth in youroffice in 4 weeks before IOL. Coding ======= Description:60468-01 Follow Up Ultrasound Description:00014-28 BPP without NST [place] Gatherer: Kristine Camp RDNV Physician: Deven Chinchilla MD, FACOG Electronically signed by: Deven Chinchilla MD, FACOG at: 15:06 us Deven Chinchilla MD IMG US ORDERABLES Final Result documented in this encounter Visit Diagnoses Diagnosis History of IUFD- Primary documented in this encounter Care Teams Campaign Management Specialist Relationship Specialty Start Date End Date Loan Vick MD [address] [place] [address] PCP - General Family Medicine 08/23/24 documented as of this encounter
--- OUTSIDE RECORDS SUMMARY | 2024-11-28 13:50 | XMS_ITS | Encounter Summary ---
[facility] Address [address] [place] [id number] Care Team Providers Care Grocery Shopper Name Role Phone Loan Vick MD Primary Care Provider +1- [phone] Reason for Visit * Diagnostic Imaging (Routine) - Authorized Specialty Diagnoses / Procedures Referred By Contact Referred To Contact Obstetrics and Gynecology Diagnoses History of IUFD Procedures [facility] Chinchilla, Deven Morrissey MD [address] [facility] [address] [place] [address] Phone: tel: fax: [facility] MATERNAL MEDICINE [address] [facility] [address] [place] [address] Phone: tel: fax: Referral ID Status Reason Start Date Expiration Date V isits Requested Visits Authorized [id number] Authorized 10/25/2024 01/24/2026 2 2 Encounter Details Date Type Department Care Team (Latest Contact Info) Description 11/28/2024 1:50 PM EDT - 11/28/2024 11:59 PM EDT Hospital Encounter [facility] US PER DIAG CTR [address] [place] [address] Harini Gilbert, DO [address] [place] [facility] [address] [place], [place] [id number] Discharge Disposition: Home or Self Care Social [...] Procedure Name Priority Date/Time Associated Diagnosis Comments [facility] Routine 11/28/2024 2:55 PM EDT History of IUFD documented in this encounter Results * [facility] (11/28/2024 2:55 PM EDT) Anatomical Region Laterality Modality Ultrasound 11/28/2024 2:31 PM EDT Narrative 11/28/2024 3:06 PM EDT PAT NAME: SANDEEP BRITO MED REC#: [id number] DA: [id number] PAT GEND: F PAT TYPE: O EXAM TED: [id number] REF PHYS HARINI GILBERT Comparison Studies The [...] EFW (oz) 15 oz EFW by: Hadlock (WTN-YJ-LX-FL) Extended Cav. septi pel. tr 5.7 mm Casting Machine Set Up Operator 6.3 mm CM 5.7 mm 10% [...] 4 weeks before IOL. Coding ======= Description: 09144-14 Follow Up Ultrasound Description: 98177-71 BPP without NST Barrel Waterer: Kristine Camp RDMS Physician: Deven Chinchilla MD, FACOG Electronically signed by: Deven Chinchilla MD, FACOG at: 15:06 Procedure Note Deven Chinchilla MD - 11/28/2024 PAT NAME: SANDEEP BRITO MED REC#: [id number] DA: [id number] PAT GEND: F PAT TYPE: O EXAM TED: [id number] REF PHYS HARINI GILBERT Comparison Studies The findings of this study are compared to the prior ultrasound studydated 10/25/24 Patient Status Outpatient Indication ======== Gestational diabetes. 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 Previous child with cerebral palsy.Hx seizures. Morbid obesity BMI 43. Maternal Assessment Hklokk668 cm Height (ft)5 ft Height (in)1 in Tetbwv709 kg Weight (lb)223 lb BMI42.65 kg/m Method ======= Transabdominal ultrasound examination. View: Adequate view ========= Cummins . Number of fetuses: 1 Dating ====== Method of dating:based on stated ROHINI GA by prior aehlmjxpyy16 w + 6 d ROHINI by prior assessment:01/17/2025 Ultrasound examination on:11/28/2024 GA by U/S based upon:AC, BPD, Femur, HC GA by U/S35 w + 3 d ROHINI by U/S:12/30/2024 Previous dating:based on stated ROHINI, selected on 10/25/2024 Agreed ROHINI of previous datin01/17/2025 Assigned:based on stated ROHINI, selected on 11/28/2024 Assigned GA32 w + 6 d Assigned ROHINI:01/17/2025 ccvber973 d Biometry Standard BPD88.3 mm 35w 5d 98% Hadlock DRA552.5 mm 38w 2d >99% Sindy HC322.8 mm 36w 3d 94% Hadlock Cerebellum tr43.7 mm 34w 0d 65% Hill AC322.9 mm 36w 1d >99% Hadlock Femur64.7 mm 33w 3d 53% Hadlock Upyeizd92.8 mm 32w 3d 49% Sindy HC / AC1.00 EFW2,683 g 35w 3d 97% Hadlock EFW (lb)5 lb EFW (oz)15 oz EFW by:Hadlock (IVZ-FM-IS-FL) Extended Cav. septi pel. tr5.7 mm Vp6.3 mm CM5.7 mm 10% Nicolaides Head / Face / Neck Cephalic index0.78 33% Nicolaides Extremities / Bony Struc FL / BPD0.73 FL / HC0.20 FL / AC0.20 Other Structures GZR797 bpm General Evaluation Cardiac activity present. FHR [...] in 4 weeks before IOL. Coding ======= Description:47329-72 Follow Up Ultrasound Description:04103-61 BPP without NST Barrel Waterer: Kristine Camp RDMD Physician: Deven Chinchilla MD, FACOG Electronically signed by: Deven Chinchilla MD, FACOG at: 15:06 us Deven Chinchilla MD IMG US ORDERABLES Final Result documented in this encounter Visit Diagnoses Not on filedocumented in this encounter Care Teams Grocery Shopper Relationship Specialty Start Date End Date Loan Vick MD [address] [place] [address] PCP - General Family Medicine 08/23/24 documented as of this encounter
--- OUTSIDE RECORDS SUMMARY | 2024-11-28 14:45 | XMS_ITS | Encounter Summary ---
[facility] Address [address] [place] [address] Care Team Providers Care Design Quality Engineer Name Role Phone Loan Vick MD Primary Care Provider +1- [phone] Reason for Visit * Reason Comments hx 39 wk IUFD, MO, LGA, prev child CP, h x seizures Encounter Details Date Type Department Care Team (Late st Contact Info) Description 11/28/2024 2:45 PM EDT Office Visit [facility] MAT[facility]NAL MEDICINE [address] [facility] [address] [place] [address] Deven Chinchilla MD [address] [facility] [address] [place] [address] History of IUFD (Primary Dx); Insulin controlled [...] vaginal bleeding, leaking fluid. Patient reports occasional [place]-Morales contractions. Endorses normal movement. NIPT negative. Next [...] CVS. Deven Chinchilla MD, FACOG Maternal Medicine, [facility] documented in this encounter Plan of Treatment Not on file documented as of this encounter Visit Diagnoses Diagnosis History of IUFD- Primary Insulin controlled gestational diabetes mellitus (GDM) in third trimester documented in this encounter Care Teams Design Quality Engineer Relationship Specialty Start Date End Date Loan Vick MD [address] [place] [address] PCP - General Family Medicine 08/23/24 documented as of this encounter
--- OUTSIDE RECORDS SUMMARY | 2024-12-10 15:02 | XMS_ITS | Clinical Summary ---
Author Organization [facility] [facility] Address [address] [address] Phone Care Team Providers Care Priming Powder Premix Blender Name Role Phone Unavailable Unavailable Conditions or Problems No information available. Medications No information available. Medications Administered No information available. Allergies, Adverse Reactions, Alerts No information available. Results No information available. Plan of Care No information available. Procedures Code Procedure Name Date Entry Date CPT-12238 COVID-19 Moderna CPT-0012A IZ administration - COVID-19 - Moderna 2n d dose CPT-30224 COVID-19 Moderna CPT-29602 IZ administration - injection - single 20 [...]
--- OUTSIDE RECORDS SUMMARY | 2024-12-10 15:02 | XMS_ITS | Encounter Summary ---
Author Organization [facility] Address One [facility] [place] [address] Care Team Providers Care Import/Export Agent Name Role Phone Loan Vick MD Primary Care Provider +1- [phone] Encounter Details Date Type Department Care Team (Latest Contact Info) Description 01/25/2017 Lab Requisition [facility] [address] [place] [id number] Claudia Granado, KJ Encounter for screening for [...] Detected Not Detected 01/26/2017 11:41 AM EDT [facility] Neisseria gonorrhoeae Not Detected Not Detected 01/26/2017 11:41 AM EDT [facility] Swab (specimen) 01/25/2017 1 0:19 AM EDT 01/25/2017 5:18 PM EDT Narrative [facility] - 01/26/2017 11:41 AM EDT Testing methodology is bundle sorter mediated amplification (TMA) using the Aptima Combo 2 assay from [employer]. A negative result does not completely rule [...] characteristics of this test were validated by [facility] laboratory. This assay is FDA cleared to test the following specimens: clinician-collected endocervical, vaginal and male urethral swab specimens, patient collected vaginal specimens within a clinic setting, Thin Prep Specimens in PreservCyt Solution, and first-stream, unpreserved male urine specimens. Testing on female urine is not FDA approved by this methodology, but has been developed and validated by the [facility] laboratory. Detailed methodology is available upon request. Claudia Granado APRN MICROBIOLOGY - GENERAL ORD ERABLES Final Result [facility] [address] [place] [address] documented in this encounter Visit Diagnoses Diagnosis [...] documented as of this encounter Care Teams Import/Export Agent Relationship Specialty Start Date End Date Loan Vick MD [address] [place] [address] PCP - General Family Medicine 03/23/16 documented as of this encounter
--- OUTSIDE RECORDS SUMMARY | 2024-12-10 15:02 | XMS_ITS | Encounter Summary ---
Author Organization [facility] Address [address] [place] [address] Care Team Providers Care Restaurant Hostess Name Role Phone Loan Vick MD Primary Care Provider +1- [phone] Encounter Details Date Type Department Care Team [...] on filedocumented in this encounter Care Teams Restaurant Hostess Relationship Specialty Start Date End Date Loan Vick MD [address] [place], [place] [id number] PCP - General Family Medicine 08/23/24 documented as of this encounter
--- OUTSIDE RECORDS SUMMARY | 2024-12-10 15:02 | XMS_ITS | Encounter Summary ---
Author Organization [place] [address] Care Team Providers Care Fitter And Turner Name Role Phone Loan Vick MD Primary Care Provider +1- [phone] Reason for Visit * Reason Comments Medication Refill Encounter Details Date Type Department Care Team (Late st Contact Info) Description 11/30/2024 Refill SEP [facility] [address] [facility] [place] [address] Loan Vick MD [address] [place] [address] Medication Refill Social History Tobacco [...] and sent to requesting pharmacy. Routed to [facility] if an appointment is needed. documented [...] documented as of this encounter Care Teams Fitter And Turner Relationship Specialty Start Date End Date Loan Vick MD [address] [place] [address] PCP - General Family Medicine 03/23/16 documented as of this encounter
--- OUTSIDE RECORDS SUMMARY | 2024-12-10 15:02 | XMS_ITS | Encounter Summary ---
Author Organization [place] [address] Care Team Providers Care Victims Advocate Clerk/Specialist Name Role Phone Loan Vick MD Primary Care Provider +1- [phone] Encounter Details Date Type Department Care Team (Late st Contact Info) Description 08/30/2024 Orders Only SE Physical Therapy [facility] [address] [facility] [place] [address] Raquel Torres, PT [address] [place] [address] Social History Tobacco Use Types [...] on filedocumented in this encounter Care Teams Victims Advocate Clerk/Specialist Relationship Specialty Start Date End Date Loan Vick MD [address] [place] [address] PCP - General Family Medicine 03/23/16 documented as of this encounter
--- OUTSIDE RECORDS SUMMARY | 2024-12-10 15:02 | XMS_ITS | Clinical Summary ---
Author Organization [facility] Address [address] [place] [address] Care Team Providers Care Technology Engineer Name Role Phone Loan Vick MD Primary Care Provider +1- [phone] Allergies Active Allergy Reactions Criticality Noted Date [...] to take to her appointment with primary CANDY BAR ATTENDANT next week. Patient reports history of decreased movement for the past day or so though has felt some movement. movement noted on ultrasound today. We discussed careful return precautions regarding decreased movement and to report to primary CANDY BAR ATTENDANT if decreased movement has occurred. Assessment & [...] [facility] MATERNAL MEDICINE [address] [facility] [address] [place] [phone] Deven Chinchilla MD History of IUFD (Primary Dx); Insulin controlled gestational diabetes mellitus (GDM) in third trimester 11/28/2024 1:50 PM EDT - 11/28/2024 11:59 PM EDT Hospital Encounter [facility] US PER DIAG [facility] [address] [place] [address] Harini Gilbert DO Discharge Disposition: Home or Self Care 11/28/2024 Travel 11/26/2024 Medication Therapy Management [facility] MATERNAL MEDICINE [address] [facility] [address] [address] [place] [address] Deven Chinchilla MD 11/23/2024 Refill [facility] MATERNAL MEDICINE [address] [facility] [address] [place] [address] Deven Chinchilla MD 10/25/2024 2:45 PM EDT Office Visit [facility] MATERNAL MEDICINE [address] [phone] Deven Chinchilla MD History of IUFD (Primary Dx) 10/25/2024 1:26 PM EDT - 10/25/2024 11:59 PM EDT Hospital Encounter [facility] US PER DI[facility] [address] [place] [address] Shameka [facility] MD History of IUFD Discharge Disposition: Home or Self Care 10/25/2024 Travel 09/27/2024 3:15 PM EDT Office Visit [facility] MATERNAL MEDICINE [address] [address] Shameka Chandler MD History of IUFD (Primary Dx) 09/27/2024 2:40 PM EDT - 09/27/2024 11:59 PM EDT Hospital Encounter [facility] PER DI[facility] [address] [place] [address] Shameka Chandler MD History of [...] Procedure Name Priority Date/Time Associated Diagnosis Comments [facility] DIAGNOSTIC CENTER Routine 11/28/2024 2:55 PM EDT History of IUFD [facility] DIAGNOSTIC CENTER Routine 10/25/2024 2:00 PM EDT History of IUFD [facility] DIAGNOSTIC CENTER Routine 09/27/2024 3:24 PM EDT History of IUFD from Last 3 Months Results * [facility] Diagnostic Center (11/28/2024 2:55 PM EDT) Only the most recent of3 resultswithin the time period is included. Anatomical Region Laterality Modality Ultrasound 11/28/2024 2:31 PM EDT Narrative 11/28/2024 3:06 PM EDT PAT NAME: SANDEEP BRITO MED REC#: [id number] DA: [id number] PAT GEND: F PAT TYPE: O EXAM TED: [id number] REF PHYS HARINI GILBERT Comparison Studies The [...] EFW (oz) 15 oz EFW by: Hadlock ([id number]) Extended Cav. septi pel. tr 5.7 mm Plant Controls Specialist 6.3 mm CM 5.7 mm 10% Nicolaides [...] 4 weeks before IOL. Coding ======= Description: 16503-49 Follow Up Ultrasound Description: 88331-32 BPP without NST Heating Equipment Repairer: Kristine Camp RDMS Physician: Deven Chinchilla MD, FACOG Electronically signed by: Deven Chinchilla MD, FACOG at: 15:06 Procedure Note Deven Chinchilla MD - 11/28/2024 PAT NAME: SANDEEP BRITO MED REC#: [id number] DA: [id number] PAT GEND: F PAT TYPE: O EXAM TED: [id number] REF PHYS HARINI GILBERT Comparison Studies The findings of this study are compared to the prior ultrasound studydated 10/25/24 Patient Status Outpatient Indication ======== Gestational diabetes. 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 Previous child with cerebral palsy.Hx seizures. Morbid obesity BMI 43. Maternal Assessment Dwbkdn174 cm Height (ft)5 ft Height (in)1 in Zxtvme441 kg Weight (lb)223 lb BMI42.65 kg/m Method ======= Transabdominal ultrasound examination. View: Adequate view ========= Cummins . Number of fetuses: 1 Dating ====== Method of dating:based on stated ROHINI GA by prior [id number] w + 6 d ROHINI by prior assessment:01/17/2025 Ultrasound examination on:11/28/2024 GA by U/S based upon:AC, BPD, Femur, HC GA by U/S35 w + 3 d ROHINI by U/S:12/30/2024 Previous dating:based on stated ROHINI, selected on 10/25/2024 Agreed ROHINI of previous datin01/17/2025 Assigned:based on stated ROHINI, selected on 11/28/2024 Assigned GA32 w + 6 d Assigned ROHINI:01/17/2025 ummcdw352 d Biometry Standard BPD88.3 mm 35w 5d 98% Hadlock UNP322.5 mm 38w 2d >99% Sindy HC322.8 mm 36w 3d 94% Hadlock Cerebellum tr43.7 mm 34w 0d 65% Hill AC322.9 mm 36w 1d >99% Hadlock Femur64.7 mm 33w 3d 53% Hadlock Dfxyirh56.8 mm 32w 3d 49% Sindy HC / AC1.00 EFW2,683 g 35w 3d 97% Hadlock EFW (lb)5 lb EFW (oz)15 oz EFW by:Hadlock ([id number]) Extended Cav. septi pel. tr5.7 mm Vp6.3 mm CM5.7 mm 10% Nicolaides Head / Face / Neck Cephalic index0.78 33% Nicolaides Extremities / Bony Struc FL / BPD0.73 FL / HC0.20 FL / AC0.20 Other Structures PXN029 bpm General Evaluation Cardiac activity present. FHR [...] in 4 weeks before IOL. Coding ======= Description:99781-31 Follow Up Ultrasound Description:78375-36 BPP without NST Heating Equipment Repairer: Kristine Camp RDID Physician: Deven Chinchilla MD, FACOG Electronically signed by: Deven Chinchilla MD, FACOG at: 15:06 Deven Chinchilla MD [facility] ORDERABLES Final Result from Last 3 Months Insurance [employer] Care Teams Technology Engineer Relationship Specialty Start Date End Date Loan Vick MD [address] [place] [address] PCP - General Family Medicine 08/23/24
--- OUTSIDE RECORDS SUMMARY | 2024-12-10 15:03 | XMS_ITS | Encounter Summary ---
Author Organization [facility] Address [address] [place] [id number] Care Team Providers Care Accounting System Expert Name Role Phone Loan Vick MD Primary Care Provider +1- [phone] Reason for Visit * Reason Comments Med Refill Encounter Details Date Type Department Care Team (Late st Contact Info) Description 11/23/2024 Refill [facility] MATERNAL MEDICINE [address] [facility] [address] [place] [address] Deven Chinchilla MD [address] [facility] [address] [place] [address] Social History Tobacco Use Types Packs/Day Years [...] on filedocumented in this encounter Care Teams Accounting System Expert Relationship Specialty Start Date End Date Loan Vick MD [address] [place] [address] PCP - General Family Medicine 08/23/24 documented as of this encounter
--- OUTSIDE RECORDS SUMMARY | 2024-12-10 15:03 | XMS_ITS | Encounter Summary ---
Author Organization [facility] Address [address] [place] [address] Care Team Providers Care Front Office Agent Name Role Phone Loan Vick MD Primary Care Provider +1- [phone] Encounter Details Date Type Department Care Team [...] on filedocumented in this encounter Care Teams Front Office Agent Relationship Specialty Start Date End Date Loan Vick MD [address] [place], [place] [id number] PCP - General Family Medicine 08/23/24 documented as of this encounter
--- OUTSIDE RECORDS SUMMARY | 2024-12-10 15:03 | XMS_ITS | Encounter Summary ---
Author Organization [place] [address] Care Team Providers Care Liner Machine Operator Helper Name Role Phone Loan Vick MD Primary Care Provider +1- [phone] Reason for Visit * Reason Comments Medication Refill Encounter Details Date Type Department Care Team (Late st Contact Info) Description 04/21/2018 Refill [facility]P [facility] [address] [facility] [place] [address] Loan Vick MD [address] [place] [address] Medication Refill Social History Tobacco [...] documented as of this encounter Care Teams Liner Machine Operator Helper Relationship Specialty Start Date End Date Loan Vick MD [address] [place] [phone] PCP - General Family Medicine 03/23/16 documented as of this encounter
--- OUTSIDE RECORDS SUMMARY | 2024-12-10 15:03 | XMS_ITS | Encounter Summary ---
Author Organization [facility] Address [address] [place] [address] Care Team Providers Care Vat House Laborer Name Role Phone Loan Vick MD Primary Care Provider +1- [phone] Encounter Details Date Type Department Care Team (Late st Contact Info) Description 11/26/2024 Medication Therapy Management [facility] MATERNAL MEDICINE [address] [facility] [address] [place] [address] Deven Chinchilla MD [address] [facility] [address] [place] [address] Social History Tobacco Use Types Packs/Day Years [...] on filedocumented in this encounter Care Teams Vat House Laborer Relationship Specialty Start Date End Date Loan Vick MD [address] [place] [address] PCP - General Family Medicine 08/23/24 documented as of this encounter
--- OUTSIDE RECORDS SUMMARY | 2024-12-10 15:03 | XMS_ITS | Clinical Summary ---
Author Organization [facility] Address [address] [place] [address] Phone Care Team Providers Care Garage Door Installer Name Role Phone Loan Vick MD Primary Care Provider +1- [phone] Allergies Active Allergy Reactions Criticality Noted Date [...] inhibitors are contraindicated due to desire for belt knife feeder - Discussed with Dr. Deven Chinchilla via phone who reminded that cholesterol is essential in and that high cholesterol for short time typically does not warrant treatment. I do agree but feel that treatment is warranted for her prison health as her cholesterol has been significantly [...] Department Care Team Description 11/30/2024 Refill SEP [facility] [address] [place] [address] Loan Vick MD Medication Refill 09/19/2024 9:49 AM EDT - 09/19/2024 11:59 PM EDT Hospital Encounter [facility] Physical Therapy [address] [place] [address] Raquel Torres, PT Discharge Disposition: Home or [...] (DALK) ; Surgeon: Armando Monreal MD; Location: [facility]; Service: Ophthalmology Medical devices from this surgery are in the Medical Devices section. 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 COLONOSCOPY 08/07/2015 N/A COLONOSCOPY and ESOPHAGOGASTRODUODENOSCOPY with biopsy; Surgeon: Jamey Schwab MD; Location: [facility]; Service: Endoscopy UPPER GASTROINTESTINAL ENDOSCOPY 08/07/2015 N/A Surgeon: Jamey Schwab MD; Location: [facility]; Service: Endoscopy DENTAL SURGERY permanent retainer in mouth CATARACT REMOVAL 11/05/2015 Right RIGHT EYE CATARACT EXTRACTION WITH PHACOEMULSIFICATION AND INTRAOCULAR LENS WITH RIGHT EYE WOUND REVISION ; Surgeon: Armando Monreal MD; Location: [facility]; Service: Ophthalmology Medical devices from this surgery are in the Medical Devices section. EYE SURGERY 11/05/2015 Right Surgeon: Armando Monreal MD; Location: [facility]; Service: Ophthalmology Medical devices from this surgery are in the Medical Devices section. EYE SURGERY 02/24/2016 Right RIGHT EYE YAG LASER CAPSULOTOMY; Surgeon: Armando Monreal MD; Location: [facility]; Service: Ophthalmology DILATION AND CURETTAGE OF UTERUS 09/16/2021 - 10/15/2021 CT NEEDLE BIOPSY LIVER 02/07/2024 CT NEEDLE BIOPSY LIVER 02/07/2024 Eduardo Betancourt MD [facility] CT Medical History Medical History Date [...] Cook RMA Medical Devices Implanted Type Area Utilities And Maintenance Supervisor Device Identifier Shelf Expiration Date Model / Serial / Lot Cornea Tissue - [id number] Implanted:Qty: 1 on 03/27/2014 by Armando Monreal MD at [facility] Right: Eye UNKNOWN 04/01/2014 [id number] / [id number] / Lens Intraocular Preloaded 19.0 Diopter - [id number] Implanted:Qty: 1 on 11/05/2015 by Armando Monreal MD at [facility] Right: Eye EL LAB:SURG 03/17/2018 [id number] / [id number] / Procedures Procedure Name Priority Date/Time Associated Diagnosis Comments SCANNED LABS 11/24/2024 12:59 PM EDT SCANNED LABS 11/06/2024 11:04 PM EDT SCANNED LABS 10/24/2024 5:33 PM EDT GC CHLAMYDIA THIN PREP Routine 05/12/2020 11:00 AM EST Well adult exam DIGITAL STRATEGY DIRECTOR CYTOLOGY REQUEST (PAP ONLY) Routine 05/12/2020 11:00 AM EST Well adult exam from Last 3 Months or Most Recently Relevant to Health Maintenance Results * SCANNED LABS (11/24/2024 12:59 PM EDT) Only the most recent of3 resultswithin the time period is included. 11/24/2024 12:5 9 PM EDT us Unknown Provider HEMATOLOGY ORDERABLES Final Res ult * DIGITAL STRATEGY DIRECTOR CYTOLOGY REQUEST (PAP ONLY) (05/12/2020 11:00 AM EST) CASE REPORT Gynecologic Cytology Report Case: [id number] Authorizing Provider: Loan Vick MD Collected: 05/12/2020 1100 Ordering Location: [facility] Received: 05/12/2020 1100 First Screen: Leesa Jose CT Specimen: LIQUID-BASED PAP - CERVICAL/ENDOCERV ICAL, Cervix, Endocervical 05/14/2020 10:48 AM EST [facility] PAP FINAL DIAGNOSIS Negative for intraepithelial lesion or malignancy 05/14/2020 10:48 AM [facility] at 1048 EST MICROSCOPIC DESCRIPTION Microscopic examination is performed and the findings corroborate the diagnosis 05/14/2020 10:48 AM EST [facility] PAP SMEAR ADEQUACY Satisfactory for evaluation 05/14/2020 10:48 AM EST [facility] ENDOCERVICAL T-ZONE Transformation zone absent. 05/14/2020 10:48 AM EST [facility] EMBEDDED IMAGES 10:48 AM EST [facility] PAP DISCLAIMER The Pap Smear is a screening test that aids in the detection of cervical cancer and cancer precursors. Both false positive and false negative results can occur. The test should be used at regular intervals, and positive results should be confirmed before definitive therapy. Processed using the ThinPrep Executive Talent Acquisition Consultant Automated cytology screening device ([employer]). 05/14/2020 10:48 AM EST [facility] Thin Prep ENDOCERVICAL STRUCTURE / Unknown 05/12/2020 11:00 AM EST 05/12/2020 11:00 AM EST us Loan Vick MD CYTOLOGY ORDERABLES Final Result [facility] [employer] [facility] [address] [place] [address] * GC CHLAMYDIA THIN PREP (05/12/2020 11:00 AM EST) Chlamydia trachomatis Not Detected Not Detected 05/13/2020 5:39 PM EST PREFERRED [employer], [facility] Neisseria gonorrhoeae Not Detected Not Detected 05/13/2020 5:39 PM EST [facility] [employer] [facility] Thin Prep SPECIMEN FROM UTERINE CERVIX / Unknown 05/12/2020 11:00 AM EST 05/12/2020 11:00 AM EST Narrative PREFERRED [employer], [facility] - 05/13/2020 5:39 PM EST Testing methodology is heel edge inker machine mediated amplification (TMA) using the AptMoverati Combo 2 assay from [employer]. A negative result does not completely rule [...] MICROBIOLOGY - GENERAL ORD ERABLES Final Result [facility] [employer] [facility] [address] [facility] , [address] [place], [place] [id number] from Last 3 Months or Most Recently Relevant to Health Maintenance Insurance RADHA PPO Care Teams Garage Door Installer Relationship Specialty Start Date End Date Loan Vick MD [address] [place] [address] PCP - General Family Medicine 03/23/16
--- NOTE | 2024-12-10 15:15 | US_ITS ---
PROCEDURE: US OB BIOPHYSICAL PROFILE CLINICAL INDICATION: Needs for GDM COMPARISON: US US OB <= 14 WEEKS FETUS from 06/04/2024 US US OB BIOPHYSICAL PROFILE from 10/29/2024 US OB BIOPHYSICAL PROFILE from 11/14/2024 US OB BIOPHYSICAL PROFILE from 11/23/2024 US OB BIOPHYSICAL PROFILE from 12/07/2024 US OB BIOPHYSICAL PROFILE from 12/08/2024 FINDINGS: Transabdominal sonographic images of the uterus were obtained. From her established due date she is 34weeks 4days. The following parameters are obtained: Viable Fetus in the cephalic presentation with a lateral placenta grade 2. The cervix measures 3.15 cm in length. Measurements: heart Rate = 140bpm Amniotic fluid index: 15.98cm, MVP 6.43 cm Qualitative AFV:2 Breathing movements: 2 Gross Body Movements: 2 Tone: 2 Biophysical profile score: 8 No obvious anomalies evident.Kidneys, face, bladder, stomach, three-vessel cord appear normal. IMPRESSION: 1. Viable fetus in the cephalic presentation with a lateral placenta grade 2. 2. The fluid is within normal limits with an amniotic fluid index 15.98 cm, MVP 6.43 cm. 3. Biophysical profile is 8/8 with good breathing movement and movement seen. 4. Limited anatomical scan appears normal. Dictated by: Driss Rice MD 12/10/2024 16:07 Driss Rice MD in OV 12/10/2024 16:07
== END 2024-12-10 23:59 | disposition home or self-care (01) ==
LOC: RAD 14:58
PROVIDERS: PCP Family Medicine; Visit Provider Obstetrics & Gynecology
DX: O24.419 Gestational diabetes mellitus in pregnancy, unspecified control (principal); Z3A.00 Weeks of gestation of pregnancy not specified
CPT/HCPCS: 76819

== ENCOUNTER 2024-12-13 13:30 | Outpatient (CLI) | payer BC, SELFPAY ==
--- OUTSIDE RECORDS SUMMARY | 2024-10-25 13:26 | XMS_ITS | Encounter Summary ---
Author Organization [facility] Address [address] [place] [id number] Care Team Providers Care Banana Loader Name Role Phone Loan Vick MD Primary Care Provider +1- [phone] Reason for Referral * Diagnostic Imaging (Routine) - Closed Specialty Diagnoses / Procedures Referred By Contac t Referred To Contact Radiology Diagnoses History of IUFD Procedures US [facility] [place] Shameka Chandler MD [address] [place] [address] Phone: tel: fax: Referral ID Status Reason Start Date Expiration Date Visits Re quested Visits Authorized Closed 10/02/2024 01/01/2026 1 1 Reason for Visit * Diagnostic Imaging (Routine) - Closed Specialty Diagnoses / Procedures Referred By Kennedy messina Referred To Contact Radiology Diagnoses History of IUFD Procedures US [facility] [place] Shameka Chandler MD [address] [address] Phone: tel: fax: Referral ID Status Reason Start Date Expiration Date Visits Re quested Visits Authorized Closed 10/02/2024 01/01/2026 1 1 Encounter Details Date Type Department Care Team (Late st Contact Info) Description 10/25/2024 1:26 PM EDT - 10/25/2024 11:59 PM EDT Hospital Encounter [facility] US PER DIAG [facility] [address] [facility] [place] [id number] Shameka Chandler MD [address] [place], [place] [id number] History of IUFD Discharge Disposition: Home or [...] Name Priority Date/Time Associated Diagnosis Comments [facility] Routine 10/25/2024 2:00 PM EDT History of IUFD documented in this encounter Results * [facility] (10/25/2024 2:00 PM EDT) Anatomical Region Laterality Modality Ultrasound 10/25/2024 1:37 PM EDT Narrative 10/25/2024 2:13 PM EDT PAT NAME: SANDEEP BRITO MED REC#: [id number] DA: [id number] PAT GEND: F PAT TYPE: O EXAM TED: [id number] REF PHYS HARINI MONTEZ Comparison Studies The [...] EFW (oz) 11 oz EFW by: Hadlock (YHP-DV-JA-FL) Extended Cav. septi pel. tr 5.8 mm Kettleman 6.4 mm CM 6.6 mm 47% Nicolaides [...] Normal Heart / Thorax 3-vessel view: Normal 0-iidmsk-pjhkgtp view: normal Cord insertion: Normal Stomach: Appears [...] 1 week given size. 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 MO BMI 42. H/O seizures. Previous child with cerebralpalsy. Maternal Assessment Lpmoyh819 cm Height (ft)5 ft Height (in)1 in Bfyzuu651 kg Weight (lb)221 lb BMI42.27 kg/m Method ======= Transabdominal ultrasound examination. View: Suboptimal view: limited byfetal position ========= Cummins . Number of fetuses: 1 Dating ====== Method of dating:based on stated ROHINI GA by prior keamacsoey66 w + 0 d ROHINI by prior assessment:01/17/2025 Ultrasound examination on:10/25/2024 GA by U/S based upon:AC, BPD, Femur, HC GA by U/S30 w + 5 d ROHINI by U/S:12/29/2024 Previous dating:based on stated ROHINI, selected on 09/27/2024 Agreed ROHINI of previous datin01/17/2025 Assigned:based on stated ROHINI, selected on 10/25/2024 Assigned GA28 w + 0 d Assigned ROHINI:01/17/2025 jritja707 d Biometry Standard BPD74.8 mm 30w 0d 92% Hadlock CIE453.5 mm 32w 6d >99% Sindy HC280.1 mm 30w 5d 92% Hadlock Cerebellum tr34.6 mm 29w 0d 79% Hill AC278.9 mm 32w 0d >99% Hadlock Femur57.0 mm 29w 6d 86% Hadlock Avhcobl22.4 mm 29w 0d 72% Sindy HC / AC1.00 EFW1,686 g 30w 5d >99% Hadlock EFW (lb)3 lb EFW (oz)11 oz EFW by:Hadlock (DHP-WC-DS-FL) Extended Cav. septi pel. tr5.8 mm Vp6.4 mm CM6.6 mm 47% Nicolaides Head / Face / Neck Cephalic index0.74 6% Nicolaides Extremities / Bony Struc FL / BPD0.76 FL / HC0.20 FL / AC0.20 Other Structures TGI810 bpm General Evaluation Cardiac activity present. FHR [...] LVOT view:Normal Heart / Thorax 3-vessel view:Normal 1-uycjog-nwrbsax view:normal Cord insertion:Normal Stomach:Appears normal Kidneys:Appears normal Bladder:Appears normal Gender:female Wants to know gender:yes Maternal Structures Uterus / Cervix Cervix:Visualized Approach:Transabdominal Cervical ogrpxw02.5 mm Doppler Arterial Umbilical A PI0.87 20% [...] x 1 week given size. Coding ======= Description:75386-03 Follow Up Accounts Receivable Executive: RT Lashon Wolf , RDMS Physician: Deven Chinchilla MD, ZULEMAOG Electronically signed by: Deven Chinchilla MD, ZULEMAOG at: 14:13 us Shameka Chandler MD IMG US ORDERABLES Final Result documented in this encounter Visit Diagnoses Diagnosis History of IUFD documented in this encounter Care Teams Banana Loader Relationship Specialty Start Date End Date Loan Vick MD [address] [place] [address] PCP - General Family Medicine 08/23/24 documented as of this encounter
--- OUTSIDE RECORDS SUMMARY | 2024-10-25 14:45 | XMS_ITS | Encounter Summary ---
[facility] Address [address] [place] [id number] Care Team Providers Care Peel Oven Tender Name Role Phone Loan Vick MD Primary Care Provider +1- [phone] Reason for Referral * Diagnostic Imaging (Routine) - Authorized Specialty Diagnoses / Procedures Referred By Contact Referred To Contact Obstetrics and Gynecology Diagnoses History of IUFD Procedures [facility] Deven Chinchilla MD [address] [facility] [address] [place] [address] Phone: tel: fax: [facility] MATERNAL MEDICINE [address] [facility] [address] [place] [address] Phone: tel: fax: Referral ID Status Reason Start Date Expiration Date V isits Requested Visits Authorized [id number] Authorized 10/25/2024 01/24/2026 2 2 Reason for Visit * Reason Comments hx 39 week IUFD; MO; hx seizures; prev. child with CP Encounter Details Date Type Department Care Team (Late Contact Info) Description 10/25/2024 2:45 PM EDT Office Visit [facility] MEDICINE [address] [facility] [address] [place] [phone] Deven Chinchilla MD [address] [facility] [address] [place] [address] History of IUFD (Primary Dx) Social History [...] to take to her appointment with primary CAMPUS PRESIDENT next week. Patient reports history of decreasedfetal movement for the past day or so though has felt some movement. movement noted on ultrasound today. We discussed careful return precautions regarding decreased movement and to reportto primary CAMPUS PRESIDENT if decreased movement has occurred. Follow Up [...] CVS. Deven Chinchilla MD, FACOG Maternal Medicine, [facility] * Deven Chinchilla MD - 10/25/2024 1:57 [...] to take to her appointment with primary CAMPUS PRESIDENT next week. Patient reports history of decreasedfetal movement for the past day or so though has felt some movement. movement noted on ultrasound today. We discussed careful return precautions regarding decreased movement and to reportto primary CAMPUS PRESIDENT if decreased movement has occurred. documented in this encounter Plan of Treatment Scheduled Orders Name Type Priority Associated Diagnoses Orde r Schedule [facility] Imaging Routine History of IUFD Every 4 Weeks for 2 Occurrences starting 10/25/2024 until 10/25/2025, 1 completed documented as of this encounter Results * [facility] (11/28/2024 2:55 PM EDT) Anatomical Region Laterality Modality Ultrasound 11/28/2024 2:31 PM EDT Narrative 11/28/2024 3:06 PM EDT PAT NAME: SANDEEP BRITO MED REC#: [id number] DA: [id number] PAT GEND: F PAT TYPE: O EXAM TED: [id number] REF PHYS HARINI GILBERT Comparison Studies The [...] EFW (oz) 15 oz EFW by: Hadlock ([id number]-FL) Extended Cav. septi pel. tr 5.7 mm Grease Rack Worker 6.3 mm CM 5.7 mm 10% Nicolaides [...] 4 weeks before IOL. Coding ======= Description: 45781-68 Follow Up Ultrasound Description: 99375-85 BPP without NST Policy Checker: Kristine Camp RDMS Physician: Deven Chinchilla MD, FACOG Electronically signed by: Deven Chinchilla MD, FACOG at: 15:06 Procedure Note Deven Chinchilla MD - 11/28/2024 PAT NAME: SANDEEP BRITO MED REC#: [id number] DA: 2000 PAT GEND: F PAT TYPE: O EXAM TED: [id number] REF PHYS HARINI GILBERT Comparison Studies The findings of this study are compared to the prior ultrasound studydated 10/25/24 Patient Status Outpatient Indication ======== Gestational diabetes. 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 Previous child with cerebral palsy.Hx seizures. Morbid obesity BMI 43. Maternal Assessment Ptxkth937 cm Height (ft)5 ft Height (in)1 in Podjeq745 kg Weight (lb)223 lb BMI42.65 kg/m Method ======= Transabdominal ultrasound examination. View: Adequate view ========= Cummins . Number of fetuses: 1 Dating ====== Method of dating:based on stated ROHINI GA by prior sqkaifmpbd11 w + 6 d ROHINI by prior assessment:01/17/2025 Ultrasound examination on:11/28/2024 GA by U/S based upon:AC, BPD, Femur, HC GA by U/S35 w + 3 d ROHINI by U/S:12/30/2024 Previous dating:based on stated ROHINI, selected on 10/25/2024 Agreed ROHINI of previous datin01/17/2025 Assigned:based on stated ROHINI, selected on 11/28/2024 Assigned GA32 w + 6 d Assigned ROHINI:01/17/2025 d Biometry Standard BPD88.3 mm 35w 5d 98% Hadlock BZG765.5 mm 38w 2d >99% Sindy HC322.8 mm 36w 3d 94% Hadlock Cerebellum tr43.7 mm 34w 0d 65% Hill AC322.9 mm 36w 1d >99% Hadlock Femur64.7 mm 33w 3d 53% Hadlock Ivdqywh33.8 mm 32w 3d 49% Sindy HC / AC1.00 EFW2,683 g 35w 3d 97% Hadlock EFW (lb)5 lb EFW (oz)15 oz EFW by:Hadlock ([id number]-[id number]-FL) Extended Cav. septi pel. tr5.7 mm Vp6.3 mm CM5.7 mm 10% Nicolaides Head / Face / Neck Cephalic index0.78 33% Nicolaides Extremities / Bony Struc FL / BPD0.73 FL / HC0.20 FL / AC0.20 Other Structures STV194 bpm General Evaluation Cardiac activity present. FHR [...] in 4 weeks before IOL. Coding ======= Description:37956-21 Follow Up Ultrasound Description:17785-66 BPP without NST Policy Checker: Kristine Camp RDPR Physician: Deven Chinchilla MD, FACOG Electronically signed by: Deven Chinchilla MD, FACOG at: 15:06 us Deven Chinchilla MD IMG US ORDERABLES Final Result documented in this encounter Visit Diagnoses Diagnosis History of IUFD- Primary documented in this encounter Care Teams Peel Oven Tender Relationship Specialty Start Date End Date Loan Vick MD [address] [place] [address] PCP - General Family Medicine 08/23/24 documented as of this encounter
--- OUTSIDE RECORDS SUMMARY | 2024-11-28 13:50 | XMS_ITS | Encounter Summary ---
[facility] [address] [place] [id number] Care Team Providers Care Cloud Infrastructure Architect Name Role Phone Loan Vick MD Primary Care Provider +1- [phone] Reason for Visit * Diagnostic Imaging (Routine) - Authorized Specialty Diagnoses / Procedures Referred By Contact Referred To Contact Obstetrics and Gynecology Diagnoses History of IUFD Procedures US [facility] Chinchilla, Deven Morrissey MD [address] [facility] [address] [place] [address] Phone: tel: fax: [facility] MATERNAL MEDICINE [address] [facility] [address] [place] [address] Phone: tel: fax: Referral ID Status Reason Start Date Expiration Date V isits Requested Visits Authorized [id number] Authorized 10/25/2024 01/24/2026 2 2 Encounter Details Date Type Department Care Team (Latest Contact Info) Description 11/28/2024 1:50 PM EDT - 11/28/2024 11:59 PM EDT Hospital Encounter [facility] US PER DIAG CTR [address] [place] [address] Harini Gilbert, DO [address] [place] [facility] [address] [place], [place] [address] Discharge Disposition: Home or Self Care Social [...] Suppl (Accu-Chek Guide Me) w/Device kit 10/25/2024 cephalexin (KEFLEX) 500 MG capsule Take 1 capsule by mouth Every 12 (Twelve) Hours. 11/23/2024 Continuous Glucose Sensor (Dexcom G7 Sensor) misc USE DIRECTED TO CHECK BLOOD SUGAR. CHANGE EVERY 10 DAYS 11/01/2024 desvenlafaxine (PRISTIQ) 50 MG 24 hr tablet Take 2 tablets by mouth Daily. 09/06/2023 Embecta Pen Needle Nia 2 Gen 32G X 4 MM misc USE WITH LANTUS ONCE DAILY 11/02/2024 famotidine (PEPCID) 20 MG tablet Take 1-2 tablets by mouth 2 (Two) Times a Day As Needed for Heartburn. glucose blood test strip Use as instructed. Fasting, 2 hours postprandial 50 each 6 11/26/2024 glucose monitor monitoring kit Use 1 each As Needed (fasting, 2 hours postprandial). 1 each 10/25/2024 hydrOXYzine (ATARAX) 25 MG tablet Take 1 tablet by mouth 3 (Three) Times a Day As Needed. 09/13/2023 Lantus SoloStar 100 UNIT/ML injection pen Inject 5 Units under the skin into the appropriate area as directed Every Night. 11/01/2024 Vit-Fe Fumarate-FA ( vitamin 27-0.8) 27-0.8 MG tablet tablet Take 1 tablet by mouth Daily. documented as of this encounter Plan of Treatment Not on file documented as of this encounter Procedures Procedure Name Priority Date/Time Associated Diagnosis Comments [facility] Routine 11/28/2024 2:55 PM EDT History of IUFD documented in this encounter Results * [facility] (11/28/2024 2:55 PM EDT) Anatomical Region Laterality Modality Ultrasound 11/28/2024 2:31 PM EDT Narrative 11/28/2024 3:06 PM EDT PAT NAME: SANDEEP BRITO MED REC#: [id number] DA: [id number] PAT GEND: F PAT TYPE: O EXAM TED: [id number] REF PHYS HARINI GILBERT Comparison Studies The [...] EFW (oz) 15 oz EFW by: Hadlock (SER-EG-XD-FL) Extended Cav. septi pel. tr 5.7 mm Feed Mill Lab Technician 6.3 mm CM 5.7 mm 10% Nicolaides [...] 4 weeks before IOL. Coding ======= Description: 20040-95 Follow Up Ultrasound Description: 12884-21 BPP without NST Wig Dresser: Kristine Camp RDMS Physician: Deven Chinchilla MD, FACOG Electronically signed by: Deven Chinchilla MD, FACOG at: 15:06 Procedure Note Deven Chinchilla MD - 11/28/2024 PAT NAME: SANDEEP BRITO MED REC#: [id number] DA: [id number] PAT GEND: F PAT TYPE: O EXAM TED: [id number] REF PHYS HARINI GILBERT Comparison Studies The findings of this study are compared to the prior ultrasound studydated 10/25/24 Patient Status Outpatient Indication ======== Gestational diabetes. 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 Previous child with cerebral palsy.Hx seizures. Morbid obesity BMI 43. Maternal Assessment Nqkhrd212 cm Height (ft)5 ft Height (in)1 in Xgxmxy742 kg Weight (lb)223 lb BMI42.65 kg/m Method ======= Transabdominal ultrasound examination. View: Adequate view ========= Cummins . Number of fetuses: 1 Dating ====== Method of dating:based on stated ROHINI GA by prior dovcxokftr69 w + 6 d ROHINI by prior assessment:01/17/2025 Ultrasound examination on:11/28/2024 GA by U/S based upon:AC, BPD, Femur, HC GA by U/S35 w + 3 d ROHINI by U/S:12/30/2024 Previous dating:based on stated ROHINI, selected on 10/25/2024 Agreed ROHINI of previous datin01/17/2025 Assigned:based on stated ROHINI, selected on 11/28/2024 Assigned GA32 w + 6 d Assigned ROHINI:01/17/2025 tycbmk409 d Biometry Standard BPD88.3 mm 35w 5d 98% Hadlock MMW285.5 mm 38w 2d >99% Sindy HC322.8 mm 36w 3d 94% Hadlock Cerebellum tr43.7 mm 34w 0d 65% Hill AC322.9 mm 36w 1d >99% Hadlock Femur64.7 mm 33w 3d 53% Hadlock Ajcebpr31.8 mm 32w 3d 49% Sindy HC / AC1.00 EFW2,683 g 35w 3d 97% Hadlock EFW (lb)5 lb EFW (oz)15 oz EFW by:Hadlock (NQS-ML-AG-FL) Extended Cav. septi pel. tr5.7 mm Vp6.3 mm CM5.7 mm 10% Nicolaides Head / Face / Neck Cephalic index0.78 33% Nicolaides Extremities / Bony Struc FL / BPD0.73 FL / HC0.20 FL / AC0.20 Other Structures KSH225 bpm General Evaluation Cardiac activity present. FHR [...] in 4 weeks before IOL. Coding ======= Description:51568-22 Follow Up Ultrasound Description:11594-04 BPP without NST Wig Dresser: Kristine Camp RDIL Physician: Deven Chinchilla MD, FACOG Electronically signed by: Deven Chinchilla MD, FACOG at: 15:06 us Deven Chinchilla MD IMG US ORDERABLES Final Result documented in this encounter Visit Diagnoses Not on filedocumented in this encounter Care Teams Cloud Infrastructure Architect Relationship Specialty Start Date End Date Loan Vick MD [address] [place] [address] PCP - General Family Medicine 08/23/24 documented as of this encounter
--- OUTSIDE RECORDS SUMMARY | 2024-11-28 14:45 | XMS_ITS | Encounter Summary ---
[facility] Address [address] [place] [address] Care Team Providers Care Case Folder Name Role Phone Loan Vick MD Primary Care Provider +1- [phone] Reason for Visit * Reason Comments hx 39 wk IUFD, [place], LGA, prev child CP, h x seizures Encounter Details Date Type Department Care Team (Late st Contact Info) Description 11/28/2024 2:45 PM EDT Office Visit [facility] MATERNAL MEDICINE [address] [facility] [address] [place] [address] Deven Chinchilla MD [address] [facility] [address] [place] [address] History of IUFD (Primary Dx); Insulin controlled gestational diabetes mellitus (GDM) in third trimester Social History Tobacco Use Types Packs/Day Years [...] Sign Reading Time Taken Comments Blood Pressure 108/58 11/28/2024 2:23 PM EDT Pulse - - Temperature - - Respiratory Rate - - Oxygen Saturation - - Inhaled Oxygen Concentration - - Weight 101 kg (223 lb) 11/28/2024 2:23 PM EDT Height - - Body Mass Index 42.14 11/09/2023 11:11 AM EDT documented in this encounter Progress Notes * Deven Chinchilla MD - 11/28/2024 3:04 PM EDTAssociated Problem(s): History of IUFD Today's ultrasound shows a slight improvement of growth with growth at the 97th percentile though abdominal circumference is still greater than the 99th percentile. Amniotic fluid is normal at 19 cm. We offered patient 4-week follow-up here for growth right before induction of labor butshe desires that to be performed in your office. * Deven Chinchilla MD - 11/28/2024 2:46 PM EDTAssociated Problem(s): Insulin controlled gestational diabetes mellitus (GDM) in third trimester GLUCOSE MONITORING Target plasma blood glucose values in are less than 90 mg/dL fasting, and less than 120 mg/dL at 2 hour postprandially or 140 mg/dL at 1 hour postprandially. Medical therapy for glycemic control is indicated if target values are not achieved after 1-2 weeks of dietary therapy, and could include oral hypoglycemic agents such as metformin or insulin therapy. We discussed insulin treatmentas the gold standard. MATERNAL RISKS Insulin resistance places women at higher risk for preeclampsia. Those with gestational diabetes are also at higher risk of developing diabetes in their lifetime outside of . A 2-hour oral glucose tolerance test at 6 weeks should be completed to clarify a diagnosis of pregestational diabetes. Screening for diabetes should be performed every 1-3 years after that. AND RISKS Diabetes in increases risk of macrosomia, with associated injuries including nerve palsies, fractures and cephalhematoma. Macrosomia increases the need for delivery and has been linked to the development of adolescent obesity. Glycemic control is important to reducing theserisks. morbidities among infants of diabetic mothers include hypoglycemia, hyperbilirubinemia, and metabolic instability. In addition, respiratory distress can result from delayed lung maturity. Intrapartum glycemic control to maintain maternal glucose levels within a narrow range (between 80-110 mg/dL) reduces risks of asphyxia and hypoglycemia. Close monitoring of the is necessary. RECOMMENDATIONS: - She will keep a glucose log as discussed above. - Patient currently on 5 units of long-acting insulin at night with overall good control of glucosevalues. Given her history of IUFD we will follow glucose values weekly. - Elective delivery for suspected macrosomia at estimated weight of greater than 4500 grams. - Plan for 2-hour OGTT at 6 weeks . - Continuation of lifestyle changes PP to lower risk of type 2 DM in the future. * Valentine Schultz RN - 11/28/2024 2:45 PM EDT Denies vaginal bleeding, leaking fluid. Patient reports occasional Douglas-Morales contractions. Endorses normal movement. NIPT negative. Next OB follow-up appointment with Dr. Gilbert on 12/06/2024. * Deven Chinchilla MD - 11/28/2024 2:45 PM EDT Maternal/ Medicine Consult Note Date: 11/28/2024 Name: Pili Kyle : 2000 Referring Provider: Iram Gilbert DO Chief Complaint hx 39 wk IUFD, MO, LGA, prev child CP, hx seizures Subjective History of Present Illness: Pili Kyle is a 23 y.o. 32w6d who presents today for gestational diabetes and history of IUFD ROHINI: Estimated Date of Delivery: 01/17/25 ROS: Otherwise Noted in HPI Current Outpatient Medications: Accu-Chek Softclix Lancets lancets, USE INSTRUCTED. FASTING, 2 HOURS POSTPRANDIAL., Disp: , Rfl: BABY ASPIRIN PO, Take 1 tablet by mouth Daily., Disp: , Rfl: Blood Glucose Monitoring Suppl (Accu-Chek Guide Me) w/Device kit, , Disp: , Rfl: cephalexin (KEFLEX) 500 MG capsule, Take 1 capsule by mouth Every 12 (Twelve) Hours., Disp: , Rfl: Continuous Glucose Sensor (Dexcom G7 Sensor) misc, USE DIRECTED TO CHECK BLOOD SUGAR. CHANGE EVERY 10 DAYS, Disp: , Rfl: desvenlafaxine (PRISTIQ) 50 MG 24 hr tablet, Take 2 tablets by mouth Daily., Disp: , Rfl: Embecta Pen Needle Nia 2 Gen 32G X 4 MM misc, USE WITH LANTUS ONCE DAILY, Disp: , Rfl: famotidine (PEPCID) 20 MG tablet, Take 1-2 tablets by mouth 2 (Two) Times a Day As Needed for Heartburn., Disp: , Rfl: hydrOXYzine (ATARAX) 25 MG tablet, Take 1 tablet by mouth 3 (Three) Times a Day As Needed., Disp: ,Rfl: Lantus SoloStar 100 UNIT/ML injection pen, Inject 5 Units under the skin into the appropriate area as directed Every Night., Disp: , Rfl: Vit-Fe Fumarate-FA ( vitamin 27-0.8) 27-0.8 MG tablet tablet, Take 1 tablet by mouth Daily., Disp: , Rfl: glucose blood test strip, Use as instructed. Fasting, 2 hours postprandial, Disp: 50 each, Rfl: 6 glucose monitor monitoring kit, Use 1 each As Needed (fasting, 2 hours postprandial)., Disp: 1 each, Rfl: 0 Objective Vital Signs BP 108/58 Wt 101 kg (223 lb) LMP 11/02/2023 (Exact Date) Estimated body mass index is 42.14 kg/m?? as calculated from the following: Height as of 11/09/23: 154.9 cm (61 ). Weight as of this encounter: 101 kg (223 lb). Ultrasound Impression: See Viewpoint Assessment and Plan Pili Kyle is a 23 y.o. 32w6d who presents today for gestational diabetes and history of IUFD Diagnoses and all orders for this visit: 1. History of IUFD (Primary) Assessment & Plan: Today's ultrasound shows a slight improvement of growth with growth at the 97th percentile though abdominal circumference is still greater than the 99th percentile. Amniotic fluid is normal at 19 cm. We offered patient 4-week follow-up here for growth right before induction of labor butshferdinand desires that to be performed in your office. 2. Insulin controlled gestational diabetes mellitus (GDM) in third trimester Assessment & Plan: GLUCOSE MONITORING Target plasma blood glucose values in are less than 90 mg/dL fasting, and less than 120 mg/dL at 2 hour postprandially or 140 mg/dL at 1 hour postprandially. Medical therapy for glycemic control is indicated if target values are not achieved after 1-2 weeks of dietary therapy, and could include oral hypoglycemic agents such as metformin or insulin therapy. We discussed insulin treatmentas the gold standard. MATERNAL RISKS Insulin resistance places women at higher risk for preeclampsia. Those with gestational diabetes are also at higher risk of developing diabetes in their lifetime outside of . A 2-hour oral glucose tolerance test at 6 weeks should be completed to clarify a diagnosis of pregestational diabetes. Screening for diabetes should be performed every 1-3 years after that. AND RISKS Diabetes in increases risk of macrosomia, with associated injuries including nerve palsies, fractures and cephalhematoma. Macrosomia increases the need for delivery and has been linked to the development of adolescent obesity. Glycemic control is important to reducing theserisks. morbidities among infants of diabetic mothers include hypoglycemia, hyperbilirubinemia, and metabolic instability. In addition, respiratory distress can result from delayed lung maturity. Intrapartum glycemic control to maintain maternal glucose levels within a narrow range (between 80-110 mg/dL) reduces risks of asphyxia and hypoglycemia. Close monitoring of the is necessary. RECOMMENDATIONS: - She will keep a glucose log as discussed above. - Patient currently on 5 units of long-acting insulin at night with overall good control of glucosevalues. Given her history of IUFD we will follow glucose values weekly. - Elective delivery for suspected macrosomia at estimated weight of greater than 4500 grams. - Plan for 2-hour OGTT at 6 weeks . - Continuation of lifestyle changes PP to lower risk of type 2 DM in the future. Follow Up No follow-ups on file. I spent 10 minutes caring for the patient on the [...] [facility]. Deven Chinchilla MD, FACOG Maternal Medicine, [facility] documented in this encounter Plan of Treatment Not on file documented as of this encounter Visit Diagnoses Diagnosis History of IUFD- Primary Insulin controlled gestational diabetes mellitus (GDM) in third trimester documented in this encounter Care Teams Case Folder Relationship Specialty Start Date End Date Loan Vick MD [address] [place] [address] PCP - General Family Medicine 08/23/24 documented as of this encounter
--- OUTSIDE RECORDS SUMMARY | 2024-12-18 10:10 | XMS_ITS | Clinical Summary ---
Author Organization [employer] [facility] Address [address] [address] Phone Care Team Providers Care Clinical Research Scientist Name Role Phone Unavailable Unavailable Conditions or Problems No information available. Medications No information available. Medications Administered No information available. Allergies, Adverse Reactions, Alerts No information available. Results No information available. Plan of Care No information available. Procedures Code Procedure Name Date Entry Date CPT-16945 COVID-19 Moderna CPT-0012A IZ administration - COVID-19 - Moderna 2n d dose CPT-32465 COVID-19 Moderna CPT-36653 IZ administration - injection - single 20 [...]
--- OUTSIDE RECORDS SUMMARY | 2024-12-18 10:10 | XMS_ITS | Clinical Summary ---
Author Organization [facility] Address [address] [place] [address] Care Team Providers Care Landfill Gas Collection Operator Name Role Phone Loan Vick MD Primary Care Provider +1- [phone] Allergies Active Allergy Reactions Criticality Noted Date [...] to take to her appointment with primary ELEVATOR STARTER next week. Patient reports history of decreased movement for the past day or so though has felt some movement. movement noted on ultrasound today. We discussed careful return precautions regarding decreased movement and to report to primary ELEVATOR STARTER if decreased movement has occurred. Assessment & [...] Description 11/28/2024 2:45 PM EDT Office Visit [facility] [address] [facility] [address] [place] [phone] Deven Chinchilla MD History of IUFD (Primary Dx); Insulin controlled gestational diabetes mellitus (GDM) in third trimester 11/28/2024 1:50 PM EDT - 11/28/2024 11:59 PM EDT Hospital Encounter [facility] [address] [place] [address] Harini Gilbert DO Discharge Disposition: Home or Self Care 11/28/2024 Travel 11/26/2024 Medication Therapy Management [facility] [address] [facility] [address] [place] [address] Deven Chinchilla MD 11/23/2024 Refill [facility] [address] [facility] [address] [place] [address] Deven Chinchilla MD 10/25/2024 2:45 PM EDT Office Visit [facility] [address] [phone] Deven Chinchilla MD History of IUFD (Primary Dx) 10/25/2024 1:26 PM EDT - 10/25/2024 11:59 PM EDT Hospital Encounter [facility] [address] [place] [address] Shameka Chandler MD History of IUFD Discharge Disposition: Home or Self Care 10/25/2024 Travel 09/27/2024 3:15 PM EDT Office Visit [facility] [address] [address] Shameka Chandler MD History of IUFD (Primary Dx) 09/27/2024 2:40 PM EDT - 09/27/2024 11:59 PM EDT Hospital Encounter [facility] [address] [place] [address] Shameka Chandler MD History of [...] Procedure Name Priority Date/Time Associated Diagnosis Comments [facility] Routine 11/28/2024 2:55 PM EDT History of IUFD [facility] Routine 10/25/2024 2:00 PM EDT History of IUFD [facility] Routine 09/27/2024 3:24 PM EDT History of IUFD from Last 3 Months Results * [facility] (11/28/2024 2:55 PM EDT) Only the most recent of3 resultswithin the time period is included. Anatomical Region Laterality Modality Ultrasound 11/28/2024 2:31 PM EDT Narrative 11/28/2024 3:06 PM EDT PAT NAME: SANDEEP BRITO MED REC#: [id number] DA: [id number] PAT GEND: F PAT TYPE: O EXAM TED: [id number] REF PHYS HARINI GILBERT Comparison Studies The [...] EFW (oz) 15 oz EFW by: Hadlock (IET-BZ-PC-FL) Extended Cav. septi pel. tr 5.7 mm Ironworker Apprentice 6.3 mm CM 5.7 mm 10% Nicolaides [...] 4 weeks before IOL. Coding ======= Description: 99921-09 Follow Up Ultrasound Description: 40337-72 BPP without NST Weekend Anchor: Kristine Camp RDMS Physician: Deven Chinchilla MD, FACOG Electronically signed by: Deven Chinchilla MD, FACOG at: 15:06 Procedure Note Deven Chinchilla MD - 11/28/2024 PAT NAME: SANDEEP BRITO MED REC#: [id number] DA: [id number] PAT GEND: F PAT TYPE: O EXAM TED: [id number] REF PHYS HARINI GILBERT Comparison Studies The findings of this study are compared to the prior ultrasound studydated 10/25/24 Patient Status Outpatient Indication ======== Gestational diabetes. 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 Previous child with cerebral palsy.Hx seizures. Morbid obesity BMI 43. Maternal Assessment Jytvkl341 cm Height (ft)5 ft Height (in)1 in Jzownn707 kg Weight (lb)223 lb BMI42.65 kg/m Method ======= Transabdominal ultrasound examination. View: Adequate view ========= Cummins . Number of fetuses: 1 Dating ====== Method of dating:based on stated ROHINI GA by prior qhpvtocemh16 w + 6 d ROHINI by prior assessment:01/17/2025 Ultrasound examination on:11/28/2024 GA by U/S based upon:AC, BPD, Femur, HC GA by U/S35 w + 3 d ROHINI by U/S:12/30/2024 Previous dating:based on stated ROHINI, selected on 10/25/2024 Agreed ROHINI of previous datin01/17/2025 Assigned:based on stated ROHINI, selected on 11/28/2024 Assigned GA32 w + 6 d Assigned ROHINI:01/17/2025 jbnpig374 d Biometry Standard BPD88.3 mm 35w 5d 98% Hadlock NTS614.5 mm 38w 2d >99% Sindy HC322.8 mm 36w 3d 94% Hadlock Cerebellum tr43.7 mm 34w 0d 65% Hill AC322.9 mm 36w 1d >99% Hadlock Femur64.7 mm 33w 3d 53% Hadlock Llptwsm58.8 mm 32w 3d 49% Sindy HC / AC1.00 EFW2,683 g 35w 3d 97% Hadlock EFW (lb)5 lb EFW (oz)15 oz EFW by:Hadlock (GUB-UZ-TO-FL) Extended Cav. septi pel. tr5.7 mm Vp6.3 mm CM5.7 mm 10% Nicolaides Head / Face / Neck Cephalic index0.78 33% Nicolaides Extremities / Bony Struc FL / BPD0.73 FL / HC0.20 FL / AC0.20 Other Structures KZL338 bpm General Evaluation Cardiac activity present. FHR [...] in 4 weeks before IOL. Coding ======= Description:10651-84 Follow Up Ultrasound Description:79636-26 BPP without NST Weekend Anchor: Kristine Camp RDMI Physician: Deven Chinchilla MD, FACOG Electronically signed by: Deven Chinchilla MD, FACOG at: 15:06 Deven Chinchilla MD [facility] ORDERABLES Final Result from Last 3 Months Insurance [employer] EM[employer] Care Teams Landfill Gas Collection Operator Relationship Specialty Start Date End Date Loan Vick MD [address] [place] [address] PCP - General Family Medicine 08/23/24
--- OUTSIDE RECORDS SUMMARY | 2024-12-18 10:11 | XMS_ITS | Encounter Summary ---
Author Organization [facility] Address [address] [place] [address] Care Team Providers Care Incinerator Attendant Name Role Phone Loan Vick MD Primary Care Provider +1- [phone] Encounter Details Date Type Department Care Team [...] on filedocumented in this encounter Care Teams Incinerator Attendant Relationship Specialty Start Date End Date Loan Vick MD [address] [place] [address] PCP - General Family Medicine 08/23/24 documented as of this encounter
--- OUTSIDE RECORDS SUMMARY | 2024-12-18 10:11 | XMS_ITS | Encounter Summary ---
Author Organization [place] [address] Care Team Providers Care Hoop Maker Machine Name Role Phone Loan Vick MD Primary Care Provider +1- [phone] Reason for Visit * Reason Comments Medication Refill Encounter Details Date Type Department Care Team (Late st Contact Info) Description 11/30/2024 Refill [facility] [address] [facility] [place] [address] Loan Vick MD [address] [place] [address] Medication Refill Social History Tobacco [...] and sent to requesting pharmacy. Routed to [facility] if an appointment is needed. documented [...] documented as of this encounter Care Teams Hoop Maker Machine Relationship Specialty Start Date End Date Loan Vick MD [address] [place] [address] PCP - General Family Medicine 03/23/16 documented as of this encounter
--- OUTSIDE RECORDS SUMMARY | 2024-12-18 10:12 | XMS_ITS | Encounter Summary ---
Author Organization [place] [address] Care Team Providers Care Plasterer Spot Name Role Phone Loan Vick MD Primary Care Provider +1- [phone] Encounter Details Date Type Department Care Team (Late st Contact Info) Description 08/30/2024 Orders Only SE Physical Therapy [facility] 300 [facility] [place] [address] Raquel Torres, PT [address] [place] [address] Social History Tobacco Use Types [...] on filedocumented in this encounter Care Teams Plasterer Spot Relationship Specialty Start Date End Date Loan Vick MD [address] [place] [address] PCP - General Family Medicine 03/23/16 documented as of this encounter
--- OUTSIDE RECORDS SUMMARY | 2024-12-18 10:12 | XMS_ITS | Encounter Summary ---
Author Organization [place] [address] Care Team Providers Care Roofing Foreman Name Role Phone Loan Vick MD Primary Care Provider +1- [phone] Reason for Visit * Reason Comments Medication Refill Encounter Details Date Type Department Care Team (Late st Contact Info) Description 04/21/2018 Refill [facility] [address] [facility] [place] [address] Loan Vick MD [address] [place] [address] Medication Refill Social History Tobacco [...] documented as of this encounter Care Teams Roofing Foreman Relationship Specialty Start Date End Date Loan Vick MD [address] [place] [phone] PCP - General Family Medicine 03/23/16 documented as of this encounter
--- OUTSIDE RECORDS SUMMARY | 2024-12-18 10:12 | XMS_ITS | Encounter Summary ---
Author Organization [facility] Address [address] [place] [id number] Care Team Providers Care Event Attendant Name Role Phone Loan Vick MD Primary Care Provider +1- [phone] Reason for Visit * Reason Comments Med Refill Encounter Details Date Type Department Care Team (Late st Contact Info) Description 11/23/2024 Refill [facility]ERNAL MEDICINE [address] [facility] [address] [place] [address] Deven Chinchilla MD [address] [facility] [address] [place] [address] Social History Tobacco Use Types Packs/Day Years [...] on filedocumented in this encounter Care Teams Event Attendant Relationship Specialty Start Date End Date Loan Vick MD [address] [place] [address] PCP - General Family Medicine 08/23/24 documented as of this encounter
--- OUTSIDE RECORDS SUMMARY | 2024-12-18 10:12 | XMS_ITS | Clinical Summary ---
Author Organization [facility] Address [address] [place] [address] Phone Care Team Providers Care Twisting Department End Finder Name Role Phone Loan Vick MD Primary Care Provider +1- [phone] Allergies Active Allergy Reactions Criticality Noted Date [...] inhibitors are contraindicated due to desire for shoe cutter - Discussed with Dr. Deven Chinchilla via phone who reminded that cholesterol is essential in and that high cholesterol for short time typically does not warrant treatment. I do agree but feel that treatment is warranted for her senior care health as her cholesterol has been significantly [...] Department Care Team Description 11/30/2024 Refill SEP [facility] [address] [place] [address] Loan Vick MD Medication Refill 09/19/2024 9:49 AM EDT - 09/19/2024 11:59 PM EDT Hospital Encounter [facility] Physical Therapy [address] [place] [address] Raquel Torres, PT Discharge Disposition: Home or [...] with biopsy; Surgeon: Jamey Schwab MD; Location: [facility] ENDOSCOPY; Service: Endoscopy UPPER GASTROINTESTINAL ENDOSCOPY 08/07/2015 N/A Surgeon: Jamey Schwab MD; Location: [facility] ENDOSCOPY; Service: Endoscopy DENTAL SURGERY [...] NEEDLE BIOPSY LIVER 02/07/2024 Eduardo Betancourt MD [facility] CT Medical History Medical History [...] Cook RMA Medical Devices Implanted Type Area Supervisor Spinning Device Identifier Shelf Expiration Date Model / Serial / Lot Cornea Tissue - [id number] Implanted:Qty: 1 on 03/27/2014 by Armando Monreal MD at [facility] Right: Eye UNKNOWN 04/01/2014 [id number] / [id number] / Lens Intraocular Preloaded 19.0 Diopter - [id number] Implanted:Qty: 1 on 11/05/2015 by Armando Monreal MD at [facility] Right: Eye EL LAB:SURG 03/17/2018 [id number] / [id number] / Procedures Procedure Name Priority Date/Time Associated Diagnosis Comments SCANNED LABS 11/24/2024 12:59 PM EDT SCANNED LABS 11/06/2024 11:04 PM EDT SCANNED LABS 10/24/2024 5:33 PM EDT GC CHLAMYDIA THIN PREP Routine 05/12/2020 11:00 AM EST Well adult exam ENGINEERING SYSTEMS ANALYST CYTOLOGY REQUEST (PAP ONLY) Routine 05/12/2020 11:00 AM EST Well adult exam from Last 3 Months or Most Recently Relevant to Health Maintenance Results * SCANNED LABS (11/24/2024 12:59 PM EDT) Only the most recent of3 resultswithin the time period is included. 11/24/2024 12:5 9 PM EDT us Unknown Provider HEMATOLOGY ORDERABLES Final Res ult * ENGINEERING SYSTEMS ANALYST CYTOLOGY REQUEST (PAP ONLY) (05/12/2020 11:00 AM EST) CASE REPORT Gynecologic Cytology Report Case: [id number] Authorizing Provider: Loan Vick MD Collected: 05/12/2020 1100 Ordering Location: [facility] Received: 05/12/2020 1100 First Screen: Leesa Jose CT Specimen: LIQUID-BASED PAP - CERVICAL/ENDOCERV ICAL, Cervix, Endocervical 05/14/2020 10:48 AM EST [facility] PAP FINAL DIAGNOSIS Negative for intraepithelial lesion or malignancy 05/14/2020 10:48 AM [facility] at 1048 EST MICROSCOPIC DESCRIPTION Microscopic examination is performed and the findings corroborate the diagnosis 05/14/2020 10:48 AM EST [facility] PAP SMEAR ADEQUACY Satisfactory for evaluation 05/14/2020 10:48 AM EST [facility] ENDOCERVICAL T-ZONE Transformation zone absent. 05/14/2020 10:48 AM EST [facility] EMBEDDED IMAGES 10:48 AM EST [facility] PAP DISCLAIMER The Pap Smear is a screening test that aids in the detection of cervical cancer and cancer precursors. Both false positive and false negative results can occur. The test should be used at regular intervals, and positive results should be confirmed before definitive therapy. Processed using the ThinPrep Engineer/Conductor Automated cytology screening device (Freak[employer]n Genius). 05/14/2020 10:48 AM EST [facility] Thin Prep ENDOCERVICAL STRUCTURE / Unknown 05/12/2020 11:00 AM EST 05/12/2020 11:00 AM EST us Loan Vick MD CYTOLOGY ORDERABLES Final Result [facility] [address] [place] [address] * GC CHLAMYDIA THIN PREP (05/12/2020 11:00 AM EST) Chlamydia trachomatis Not Detected Not Detected 05/13/2020 5:39 PM EST PREFERRED [employer], [facility] Neisseria gonorrhoeae Not Detected Not Detected 05/13/2020 5:39 PM EST [facility] [employer] [facility] Thin Prep SPECIMEN FROM UTERINE CERVIX / Unknown 05/12/2020 11:00 AM EST 05/12/2020 11:00 AM EST Narrative PREFERRED [employer], [facility] - 05/13/2020 5:39 PM EST Testing methodology is fruit packer mediated amplification (TMA) using the AptWaynaut Combo 2 assay from [employer]Gro[employer]. A negative result does not completely rule [...] MICROBIOLOGY - GENERAL ORD ERABLES Final Result [facility] [employer] [facility] [address] [facility] [facility] [facility] , [address] [place], [place] [id number] from Last 3 Months or Most Recently Relevant to Health Maintenance Insurance RADHA PPO Care Teams Twisting Department End Finder Relationship Specialty Start Date End Date Loan Vick MD [address] [place] [address] PCP - General Family Medicine 03/23/16
--- OUTSIDE RECORDS SUMMARY | 2024-12-18 10:12 | XMS_ITS | Encounter Summary ---
[facility] Organization [facility] Address [address] [place] [address] Care Team Providers Care Pets Salesperson Name Role Phone Loan Vick MD Primary Care Provider +1- [phone] Encounter Details Date Type Department Care Team (Late st Contact Info) Description 11/26/2024 Medication Therapy Management [facility] MATERNAL MEDICINE [address] [facility] [address] [place] [address] Deven Chinchilla MD [address] [facility] [address] [place] [address] Social History Tobacco Use Types Packs/Day Years [...] on filedocumented in this encounter Care Teams Pets Salesperson Relationship Specialty Start Date End Date Loan Vick MD [address] [place] [address] PCP - General Family Medicine 08/23/24 documented as of this encounter
--- OUTSIDE RECORDS SUMMARY | 2024-12-18 10:12 | XMS_ITS | Encounter Summary ---
Author Organization [place] Address One [facility] [place] [address] Care Team Providers Care Health Unit Coordinator Name Role Phone Loan Vick MD Primary Care Provider +1- [phone] Encounter Details Date Type Department Care Team (Latest Contact Info) Description 01/25/2017 Lab Requisition [facility] [address] [place] [id number] Claudia Granado, KJ Encounter for screening for [...] Detected Not Detected 01/26/2017 11:41 AM EDT [facility] Neisseria gonorrhoeae Not Detected Not Detected 01/26/2017 11:41 AM EDT [facility] Swab (specimen) 01/25/2017 1 0:19 AM EDT 01/25/2017 5:18 PM EDT Narrative [facility] - 01/26/2017 11:41 AM EDT Testing methodology is printed circuit boards solder leveler mediated amplification (TMA) using the Aptima Combo 2 assay from [employer]VidAngel. A negative result does not completely rule [...] validated by [facility] laboratory. This assay is FDA cleared to test the following specimens: clinician-collected endocervical, vaginal and male urethral swab specimens, patient collected vaginal specimens within a clinic setting, Thin Prep Specimens in PreservCyt Solution, and first-stream, unpreserved male urine specimens. Testing on female urine is not FDA approved by this methodology, but has been developed and validated by the [facility] laboratory. Detailed methodology is available upon request. Claudia Granado APRN MICROBIOLOGY - GENERAL ORD ERABLES Final Result [facility] [address] [place] [address] documented in this encounter Visit Diagnoses Diagnosis [...] documented as of this encounter Care Teams Health Unit Coordinator Relationship Specialty Start Date End Date Loan Vick MD [address] [place] [address] PCP - General Family Medicine 03/23/16 documented as of this encounter
--- OUTSIDE RECORDS SUMMARY | 2024-12-18 10:12 | XMS_ITS | Encounter Summary ---
Author Organization [facility] Address [address] [place] [address] Care Team Providers Care In Home Caregiver Name Role Phone Loan Vick MD Primary Care Provider +1- [phone] Encounter Details Date Type Department Care Team [...] on filedocumented in this encounter Care Teams In Home Caregiver Relationship Specialty Start Date End Date Loan Vick MD [address] [place] [address] PCP - General Family Medicine 08/23/24 documented as of this encounter
== END 2024-12-13 23:59 | disposition home or self-care (01) ==
LOC: LAB.DROPOF 12-18 09:44
PROVIDERS: PCP Obstetrics & Gynecology; Visit Provider Obstetrics & Gynecology
DX: O24.414 Gestational diabetes mellitus in pregnancy, insulin controlled (principal); O99.210 Obesity complicating pregnancy, unspecified trimester; Z87.59 Personal history of other complications of pregnancy, childbirth and the puerperium
CPT/HCPCS: 86403

== ENCOUNTER 2024-12-17 11:40 | Outpatient (CLI) | payer BC, SELFPAY ==
--- OUTSIDE RECORDS SUMMARY | 2024-10-25 13:26 | XMS_ITS | Encounter Summary ---
Author Organization [facility] Address [address] [place] [id number] Care Team Providers Care Foreign Exchange Clerk Name Role Phone Loan Vick MD Primary Care Provider +1- [phone] Reason for Referral * Diagnostic Imaging (Routine) - Closed Specialty Diagnoses / Procedures Referred By Contac t Referred To Contact Radiology Diagnoses History of IUFD Procedures US [facility] [place] Shameka Chandler MD [address] [place] [address] Phone: tel: fax: Referral ID Status Reason Start Date Expiration Date Visits Re quested Visits Authorized Closed 10/02/2024 01/01/2026 1 1 Reason for Visit * Diagnostic Imaging (Routine) - Closed Specialty Diagnoses / Procedures Referred By Kennedy messina Referred To Contact Radiology Diagnoses History of IUFD Procedures US [facility] [place] Shameka Chandler MD [address] [address] Phone: tel: fax: Referral ID Status Reason Start Date Expiration Date Visits Re quested Visits Authorized Closed 10/02/2024 01/01/2026 1 1 Encounter Details Date Type Department Care Team (Late st Contact Info) Description 10/25/2024 1:26 PM EDT - 10/25/2024 11:59 PM EDT Hospital Encounter [facility] US PER DIAG CTR [address] [facility] [place] [id number] Shameka Chandler MD [address] [facility] [address] [place], [place] [address] History of IUFD Discharge Disposition: Home or [...] Procedure Name Priority Date/Time Associated Diagnosis Comments [facility] Routine 10/25/2024 2:00 PM EDT History of IUFD documented in this encounter Results * [facility] (10/25/2024 2:00 PM EDT) Anatomical Region Laterality Modality Ultrasound 10/25/2024 1:37 PM EDT Narrative 10/25/2024 2:13 PM EDT PAT NAME: SANDEEP BRITO MED REC#: [id number] DA: [id number] PAT GEND: F PAT TYPE: O EXAM TED: [id number] REF PHYS HARINI MONTEZ Comparison Studies The [...] EFW (oz) 11 oz EFW by: Hadlock (CVZ-NO-VY-FL) Extended Cav. septi pel. tr 5.8 mm Meat Market Manager 6.4 mm CM 6.6 mm 47% Nicolaides [...] Normal Heart / Thorax 3-vessel view: Normal 4-scjfda-zqhkkzb view: normal Cord insertion: Normal Stomach: Appears [...] 1 week given size. 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 MO BMI 42. H/O seizures. Previous child with cerebralpalsy. Maternal Assessment Khivzz984 cm Height (ft)5 ft Height (in)1 in Bhthab437 kg Weight (lb)221 lb BMI42.27 kg/m Method ======= Transabdominal ultrasound examination. View: Suboptimal view: limited byfetal position ========= Cummins . Number of fetuses: 1 Dating ====== Method of dating:based on stated ROHINI GA by prior knfdfcjqqu39 w + 0 d ROHINI by prior assessment:01/17/2025 Ultrasound examination on:10/25/2024 GA by U/S based upon:AC, BPD, Femur, HC GA by U/S30 w + 5 d ROHINI by U/S:12/29/2024 Previous dating:based on stated ROHINI, selected on 09/27/2024 Agreed ROHINI of previous datin01/17/2025 Assigned:based on stated ROHINI, selected on 10/25/2024 Assigned GA28 w + 0 d Assigned ROHINI:01/17/2025 fkuwkr969 d Biometry Standard BPD74.8 mm 30w 0d 92% Hadlock PMS838.5 mm 32w 6d >99% Sindy HC280.1 mm 30w 5d 92% Hadlock Cerebellum tr34.6 mm 29w 0d 79% Hill AC278.9 mm 32w 0d >99% Hadlock Femur57.0 mm 29w 6d 86% Hadlock Oacsyku55.4 mm 29w 0d 72% Sindy HC / AC1.00 EFW1,686 g 30w 5d >99% Hadlock EFW (lb)3 lb EFW (oz)11 oz EFW by:Hadlock (KNY-RA-PZ-FL) Extended Cav. septi pel. tr5.8 mm Vp6.4 mm CM6.6 mm 47% Nicolaides Head / Face / Neck Cephalic index0.74 6% Nicolaides Extremities / Bony Struc FL / BPD0.76 FL / HC0.20 FL / AC0.20 Other Structures YWF862 bpm General Evaluation Cardiac activity present. FHR [...] LVOT view:Normal Heart / Thorax 3-vessel view:Normal 4-ebozdt-sulrjci view:normal Cord insertion:Normal Stomach:Appears normal Kidneys:Appears normal Bladder:Appears normal Gender:female Wants to know gender:yes Maternal Structures Uterus / Cervix Cervix:Visualized Approach:Transabdominal Cervical kiqgps56.5 mm Doppler Arterial Umbilical A PI0.87 20% [...] x 1 week given size. Coding ======= Description:41631-68 Follow Up Portfolio Director: RT Lashon Wolf , RDMS Physician: Deven Chinchilla MD, ZULEMAOG Electronically signed by: Deven Chinchilla MD, ZULEMAOG at: 14:13 us Shameka Chandler MD IMG US ORDERABLES Final Result documented in this encounter Visit Diagnoses Diagnosis History of IUFD documented in this encounter Care Teams Foreign Exchange Clerk Relationship Specialty Start Date End Date Loan Vick MD [address] [place] [address] PCP - General Family Medicine 08/23/24 documented as of this encounter
--- OUTSIDE RECORDS SUMMARY | 2024-10-25 14:45 | XMS_ITS | Encounter Summary ---
[facility] Address [address] [place] [id number] Care Team Providers Care Software Engineering Supervisor Name Role Phone Loan Vick MD Primary Care Provider +1- [phone] Reason for Referral * Diagnostic Imaging (Routine) - Authorized Specialty Diagnoses / Procedures Referred By Contact Referred To Contact Obstetrics and Gynecology Diagnoses History of IUFD Procedures [facility] Deven Chinchilla MD [address] [facility] [address] [place] [address] Phone: tel: fax: [facility] MATERNAL MEDICINE [address] [facility] [address] [place] [address] Phone: tel: fax: Referral ID Status Reason Start Date Expiration Date V isits Requested Visits Authorized [id number] Authorized 10/25/2024 01/24/2026 2 2 Reason for Visit * Reason Comments hx 39 week IUFD; MO; hx seizures; prev. child with CP Encounter Details Date Type Department Care Team (Late Contact Info) Description 10/25/2024 2:45 PM EDT Office Visit [facility] MATERNAL MEDICINE [address] [facility] [address] [place] [phone] Deven Chinchilla MD [address] [facility] [address] [place] [address] History of IUFD (Primary Dx) Social History [...] to take to her appointment with primary AIRPLANE CAPTAIN next week. Patient reports history of decreasedfetal movement for the past day or so though has felt some movement. movement noted on ultrasound today. We discussed careful return precautions regarding decreased movement and to reportto primary AIRPLANE CAPTAIN if decreased movement has occurred. Follow Up [...] Chinchilla MD, FACOG Maternal Medicine, [facility] * Deven Chinchilla MD - 10/25/2024 [...] to take to her appointment with primary AIRPLANE CAPTAIN next week. Patient reports history of decreasedfetal movement for the past day or so though has felt some movement. movement noted on ultrasound today. We discussed careful return precautions regarding decreased movement and to reportto primary AIRPLANE CAPTAIN if decreased movement has occurred. documented in this encounter Plan of Treatment Scheduled Orders Name Type Priority Associated Diagnoses Orde r Schedule [facility] Imaging Routine History of IUFD Every 4 Weeks for 2 Occurrences starting 10/25/2024 until 10/25/2025, 1 completed documented as of this encounter Results * [facility] (11/28/2024 2:55 PM EDT) Anatomical Region Laterality Modality Ultrasound 11/28/2024 2:31 PM EDT Narrative 11/28/2024 3:06 PM EDT PAT NAME: SANDEEP BRITO MED REC#: [id number] DA: [id number] PAT GEND: F PAT TYPE: O EXAM TED: [id number] REF PHYS HARINI GILBERT Comparison Studies The [...] EFW (oz) 15 oz EFW by: Hadlock (MGG-YS-CE-FL) Extended Cav. septi pel. tr 5.7 mm Freight Hustler 6.3 mm CM 5.7 mm 10% Nicolaides [...] 4 weeks before IOL. Coding ======= Description: 73913-41 Follow Up Ultrasound Description: 93309-95 BPP without NST Fourdrinier Tender: Kristine Camp RDMS Physician: Deven Chinchilla MD, FACOG Electronically signed by: Deven Chinchilla MD, FACOG at: 15:06 Procedure Note Deven Chinchilla MD - 11/28/2024 PAT NAME: SANDEEP BRITO MED REC#: [id number] DA: 2000 PAT GEND: F PAT TYPE: O EXAM TED: [id number] REF PHYS HARINI GILBERT Comparison Studies The findings of this study are compared to the prior ultrasound studydated 10/25/24 Patient Status Outpatient Indication ======== Gestational diabetes. 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 Previous child with cerebral palsy.Hx seizures. Morbid obesity BMI 43. Maternal Assessment Taxucb617 cm Height (ft)5 ft Height (in)1 in Jupfcw783 kg Weight (lb)223 lb BMI42.65 kg/m Method ======= Transabdominal ultrasound examination. View: Adequate view ========= Cummins . Number of fetuses: 1 Dating ====== Method of dating:based on stated ROHINI GA by prior sfdqdacjpr56 w + 6 d ROHINI by prior assessment:01/17/2025 Ultrasound examination on:11/28/2024 GA by U/S based upon:AC, BPD, Femur, HC GA by U/S35 w + 3 d ROHINI by U/S:12/30/2024 Previous dating:based on stated ROHINI, selected on 10/25/2024 Agreed ROHINI of previous datin01/17/2025 Assigned:based on stated ROHINI, selected on 11/28/2024 Assigned GA32 w + 6 d Assigned ROHINI:01/17/2025 zyelda673 d Biometry Standard BPD88.3 mm 35w 5d 98% Hadlock PWF418.5 mm 38w 2d >99% Sindy HC322.8 mm 36w 3d 94% Hadlock Cerebellum tr43.7 mm 34w 0d 65% Hill AC322.9 mm 36w 1d >99% Hadlock Femur64.7 mm 33w 3d 53% Hadlock Uqurocn60.8 mm 32w 3d 49% Sindy HC / AC1.00 EFW2,683 g 35w 3d 97% Hadlock EFW (lb)5 lb EFW (oz)15 oz EFW by:Hadlock (RSZ-HY-JF-FL) Extended Cav. septi pel. tr5.7 mm Vp6.3 mm CM5.7 mm 10% Nicolaides Head / Face / Neck Cephalic index0.78 33% Nicolaides Extremities / Bony Struc FL / BPD0.73 FL / HC0.20 FL / AC0.20 Other Structures BDD035 bpm General Evaluation Cardiac activity present. FHR [...] in 4 weeks before IOL. Coding ======= Description:51070-37 Follow Up Ultrasound Description:48294-55 BPP without NST Fourdrinier Tender: Kristine Camp RDKS Physician: Deven Chinchilla MD, FACOG Electronically signed by: Deven Chinchilla MD, FACOG at: 15:06 us Deven Chinchilla MD IMG US ORDERABLES Final Result documented in this encounter Visit Diagnoses Diagnosis History of IUFD- Primary documented in this encounter Care Teams Software Engineering Supervisor Relationship Specialty Start Date End Date Loan Vick MD [address] [place] [address] PCP - General Family Medicine 08/23/24 documented as of this encounter
--- OUTSIDE RECORDS SUMMARY | 2024-11-28 13:50 | XMS_ITS | Encounter Summary ---
[facility] Address [address] [place] [id number] Care Team Providers Care Funeral Home Manager Name Role Phone Loan Vick MD Primary Care Provider +1- [phone] Reason for Visit * Diagnostic Imaging (Routine) - Authorized Specialty Diagnoses / Procedures Referred By Contact Referred To Contact Obstetrics and Gynecology Diagnoses History of IUFD Procedures [facility] Chinchilla, Deven Morrissey MD [address] [facility] [address] [place] [address] Phone: tel: fax: [facility] MED[facility] [address] [facility] [address] [place] [address] Phone: tel: fax: Referral ID Status Reason Start Date Expiration Date V isits Requested Visits Authorized [id number] Authorized 10/25/2024 01/24/2026 2 2 Encounter Details Date Type Department Care Team (Latest Contact Info) Description 11/28/2024 1:50 PM EDT - 11/28/2024 11:59 PM EDT Hospital Encounter [facility] US PER DIAG CTR [address] [place] [address] Harini Gilbert, DO [address] [facility] [address] [place], [place] [address] Discharge Disposition: Home or Self Care Social [...] Procedure Name Priority Date/Time Associated Diagnosis Comments [facility] Routine 11/28/2024 2:55 PM EDT History of IUFD documented in this encounter Results * [facility] (11/28/2024 2:55 PM EDT) Anatomical Region Laterality Modality Ultrasound 11/28/2024 2:31 PM EDT Narrative 11/28/2024 3:06 PM EDT PAT NAME: SANDEEP BRITO MED REC#: [id number] DA: [id number] PAT GEND: F PAT TYPE: O EXAM TED: [id number] REF PHYS HARINI GILBERT Comparison Studies The [...] EFW (oz) 15 oz EFW by: Hadlock (NMM-OH-OF-FL) Extended Cav. septi pel. tr 5.7 mm Metal Mockup Maker 6.3 mm CM 5.7 mm 10% [...] 4 weeks before IOL. Coding ======= Description: 15233-33 Follow Up Ultrasound Description: 32774-73 BPP without NST Singing Telegram Performer: Kristine Camp RDMS Physician: Deven Chinchilla MD, FACOG Electronically signed by: Deven Chinchilla MD, FACOG at: 15:06 Procedure Note Deven Chinchilla MD - 11/28/2024 PAT NAME: SANDEEP BRITO MED REC#: [id number] DA: [id number] PAT GEND: F PAT TYPE: O EXAM TED: [id number] REF PHYS HARINI GILBERT Comparison Studies The findings of this study are compared to the prior ultrasound studydated 10/25/24 Patient Status Outpatient Indication ======== Gestational diabetes. 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 Previous child with cerebral palsy.Hx seizures. Morbid obesity BMI 43. Maternal Assessment Qppczd572 cm Height (ft)5 ft Height (in)1 in Enkzxl193 kg Weight (lb)223 lb BMI42.65 kg/m Method ======= Transabdominal ultrasound examination. View: Adequate view ========= Cummins . Number of fetuses: 1 Dating ====== Method of dating:based on stated ROHINI GA by prior nztucgyier47 w + 6 d ROHINI by prior assessment:01/17/2025 Ultrasound examination on:11/28/2024 GA by U/S based upon:AC, BPD, Femur, HC GA by U/S35 w + 3 d ROHINI by U/S:12/30/2024 Previous dating:based on stated ROHINI, selected on 10/25/2024 Agreed ROHINI of previous datin01/17/2025 Assigned:based on stated ROHINI, selected on 11/28/2024 Assigned GA32 w + 6 d Assigned ROHINI:01/17/2025 bugudl670 d Biometry Standard BPD88.3 mm 35w 5d 98% Hadlock VFA835.5 mm 38w 2d >99% Sindy HC322.8 mm 36w 3d 94% Hadlock Cerebellum tr43.7 mm 34w 0d 65% Hill AC322.9 mm 36w 1d >99% Hadlock Femur64.7 mm 33w 3d 53% Hadlock Wbwjjsj99.8 mm 32w 3d 49% Sindy HC / AC1.00 EFW2,683 g 35w 3d 97% Hadlock EFW (lb)5 lb EFW (oz)15 oz EFW by:Hadlock (DRG-VC-KU-FL) Extended Cav. septi pel. tr5.7 mm Vp6.3 mm CM5.7 mm 10% Nicolaides Head / Face / Neck Cephalic index0.78 33% Nicolaides Extremities / Bony Struc FL / BPD0.73 FL / HC0.20 FL / AC0.20 Other Structures BOZ245 bpm General Evaluation Cardiac activity present. FHR [...] in 4 weeks before IOL. Coding ======= Description:60147-13 Follow Up Ultrasound Description:11900-22 BPP without NST Singing Telegram Performer: Kristine Camp RDWY Physician: Deven Chinchilla MD, FACOG Electronically signed by: Deven Chinchilla MD, FACOG at: 15:06 us Deven Chinchilla MD IMG US ORDERABLES Final Result documented in this encounter Visit Diagnoses Not on filedocumented in this encounter Care Teams Funeral Home Manager Relationship Specialty Start Date End Date Loan Vick MD [address] [place] [address] PCP - General Family Medicine 08/23/24 documented as of this encounter
--- OUTSIDE RECORDS SUMMARY | 2024-11-28 14:45 | XMS_ITS | Encounter Summary ---
[facility] Address [address] [place] [address] Care Team Providers Care Tax Agent Name Role Phone Loan Vick MD Primary Care Provider +1- [phone] Reason for Visit * Reason Comments hx 39 wk IUFD, MO, LGA, prev child CP, h x seizures Encounter Details Date Type Department Care Team (Late st Contact Info) Description 11/28/2024 2:45 PM EDT Office Visit [facility] MATERNAL MEDICINE [address] [facility] [address] [place] [address] Deven Chinchilla MD [address] [facility] [address] [place] [address] History of IUFD (Primary Dx); Insulin controlled [...] Medicine Consult Note Date: 11/28/2024 Name: Pili Klye : 2000 Referring Provider: Iram Gilbert DO [...] CVS. Deven Chinchilla MD, FACOG Maternal Medicine, [facility] documented in this encounter Plan of Treatment Not on file documented as of this encounter Visit Diagnoses Diagnosis History of IUFD- Primary Insulin controlled gestational diabetes mellitus (GDM) in third trimester documented in this encounter Care Teams Tax Agent Relationship Specialty Start Date End Date Loan Vick MD [address] [place] [address] PCP - General Family Medicine 08/23/24 documented as of this encounter
--- OUTSIDE RECORDS SUMMARY | 2024-12-17 11:43 | XMS_ITS | Clinical Summary ---
Author Organization [employer] [facility] Address [address] [address] Phone Care Team Providers Care Clinical Training Specialist Name Role Phone Unavailable Unavailable Conditions or Problems No information available. Medications No information available. Medications Administered No information available. Allergies, Adverse Reactions, Alerts No information available. Results No information available. Plan of Care No information available. Procedures Code Procedure Name Date Entry Date CPT-89007 COVID-19 Moderna CPT-0012A IZ administration - COVID-19 - Moderna 2n d dose CPT-73558 COVID-19 Moderna CPT-31742 IZ administration - injection - single 20 [...]
--- OUTSIDE RECORDS SUMMARY | 2024-12-17 11:44 | XMS_ITS | Encounter Summary ---
Author Organization [place] [address] Care Team Providers Care Hyperion Essbase Developer Name Role Phone Loan Vick MD Primary Care Provider +1- [phone] Encounter Details Date Type Department Care Team (Late st Contact Info) Description 08/30/2024 Orders Only SE Physical Therapy [facility] [address] [place] [address] Raquel Torres, PT [address] [place] [address] Social History Tobacco Use Types [...] on filedocumented in this encounter Care Teams Hyperion Essbase Developer Relationship Specialty Start Date End Date Loan Vick MD [address] [place] [address] PCP - General Family Medicine 03/23/16 documented as of this encounter
--- OUTSIDE RECORDS SUMMARY | 2024-12-17 11:44 | XMS_ITS | Encounter Summary ---
Author Organization [facility] Address [address] [place] [address] Care Team Providers Care Botany Teacher Name Role Phone Loan Vick MD Primary Care Provider +1- [phone] Encounter Details Date Type Department Care Team [...] on filedocumented in this encounter Care Teams Botany Teacher Relationship Specialty Start Date End Date Loan Vick MD [address] [place] [address] PCP - General Family Medicine 08/23/24 documented as of this encounter
--- OUTSIDE RECORDS SUMMARY | 2024-12-17 11:44 | XMS_ITS | Encounter Summary ---
Author Organization [place] [address] Care Team Providers Care Elevator Adjuster Name Role Phone Loan Vick MD Primary Care Provider +1- [phone] Reason for Visit * Reason Comments Medication Refill Encounter Details Date Type Department Care Team (Late st Contact Info) Description 11/30/2024 Refill SEP [facility] [address] [facility] [place] [address] Loan Vick MD [address] [place] [address] Medication Refill Social History Tobacco [...] requesting pharmacy. Routed to [facility] if an appointment is needed. documented [...] documented as of this encounter Care Teams Elevator Adjuster Relationship Specialty Start Date End Date Loan Vick MD [address] [place] [address] PCP - General Family Medicine 03/23/16 documented as of this encounter
--- OUTSIDE RECORDS SUMMARY | 2024-12-17 11:44 | XMS_ITS | Encounter Summary ---
Author Organization [facility] Address [address] [facility] [address] Care Team Providers Care Pipelines Supervisor Name Role Phone Loan Vick MD Primary Care Provider +1- [phone] Encounter Details Date Type Department Care Team (Latest Contact Info) Description 01/25/2017 Lab Requisition [facility] [address] [place] [id number] Claudia Granado, KJ Encounter for screening for [...] Detected Not Detected 01/26/2017 11:41 AM EDT [facility] Neisseria gonorrhoeae Not Detected Not Detected 01/26/2017 11:41 AM EDT [facility] Swab (specimen) 01/25/2017 1 0:19 AM EDT 01/25/2017 5:18 PM EDT Narrative [facility] - 01/26/2017 11:41 AM EDT Testing methodology is assistant spa director mediated amplification (TMA) using the Aptima Combo 2 assay from [employer]. A negative result does not completely rule [...] MICROBIOLOGY - GENERAL ORD ERABLES Final Result [facility] [address] [place] [address] documented in this encounter Visit Diagnoses Diagnosis [...] documented as of this encounter Care Teams Pipelines Supervisor Relationship Specialty Start Date End Date Loan Vick MD [address] [place] [address] PCP - General Family Medicine 03/23/16 documented as of this encounter
--- OUTSIDE RECORDS SUMMARY | 2024-12-17 11:44 | XMS_ITS | Clinical Summary ---
Author Organization 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 Deven Chinchilla via phone who reminded that cholesterol is essential in and that high cholesterol for short time typically does not warrant treatment. I do agree but feel that treatment is warranted for her retirement health as her cholesterol has been significantly [...] Department Care Team Description 11/30/2024 Refill SEP [facility] [address] [place] [address] Loan Vick MD Medication Refill 09/19/2024 9:49 AM EDT - 09/19/2024 11:59 PM EDT Hospital Encounter [facility] Physical Therapy [address] [place] [address] Raquel Torres, PT Discharge Disposition: Home or [...] (DALK) ; Surgeon: Armando Monreal MD; Location: [facility]; Service: Ophthalmology Medical devices from this surgery are in the Medical Devices section. 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 COLONOSCOPY 08/07/2015 N/A COLONOSCOPY and ESOPHAGOGASTRODUODENOSCOPY with biopsy; Surgeon: Jamey Schwab MD; Location: [facility]; Service: Endoscopy UPPER GASTROINTESTINAL ENDOSCOPY 08/07/2015 N/A Surgeon: Jamey Schwab MD; Location: [facility]; Service: Endoscopy DENTAL SURGERY permanent retainer in mouth CATARACT REMOVAL 11/05/2015 Right RIGHT EYE CATARACT EXTRACTION WITH PHACOEMULSIFICATION AND INTRAOCULAR LENS WITH RIGHT EYE WOUND REVISION ; Surgeon: Armando Monreal MD; Location: [facility]; Service: Ophthalmology Medical devices from this surgery are in the Medical Devices section. EYE SURGERY 11/05/2015 Right Surgeon: Armando Monreal MD; Location: [facility]; Service: Ophthalmology Medical devices from this surgery are in the Medical Devices section. EYE SURGERY 02/24/2016 Right RIGHT EYE YAG LASER CAPSULOTOMY; Surgeon: Armando Monreal MD; Location: [facility]; Service: Ophthalmology DILATION AND CURETTAGE OF UTERUS 09/16/2021 - 10/15/2021 CT NEEDLE BIOPSY LIVER 02/07/2024 CT NEEDLE BIOPSY LIVER 02/07/2024 Eduardo Betancourt MD [facility] CT Medical History Medical History Date Comments [...] Cook RMA Medical Devices Implanted Type Area Emt Dispatcher Device Identifier Shelf Expiration Date Model / Serial / Lot Cornea Tissue - [id number] Implanted:Qty: 1 on 03/27/2014 by Armando Monreal MD at [facility] Right: Eye UNKNOWN 04/01/2014 [id number] / [id number] / Lens Intraocular Preloaded 19.0 Diopter - [id number] Implanted:Qty: 1 on 11/05/2015 by Armando Monreal MD at [facility] Right: Eye EL LAB:SURG 03/17/2018 [id number] / [id number] / Procedures Procedure Name Priority Date/Time Associated Diagnosis Comments SCANNED LABS 11/24/2024 12:59 PM EDT SCANNED LABS 11/06/2024 11:04 PM EDT SCANNED LABS 10/24/2024 5:33 PM EDT GC CHLAMYDIA THIN PREP Routine 05/12/2020 11:00 AM EST Well adult exam WEB MARKETING STRATEGIST CYTOLOGY REQUEST (PAP ONLY) Routine 05/12/2020 11:00 AM EST Well adult exam from Last 3 Months or Most Recently Relevant to Health Maintenance Results * SCANNED LABS (11/24/2024 12:59 PM EDT) Only the most recent of3 resultswithin the time period is included. 11/24/2024 12:5 9 PM EDT us Unknown Provider HEMATOLOGY ORDERABLES Final Res ult * WEB MARKETING STRATEGIST CYTOLOGY REQUEST (PAP ONLY) (05/12/2020 11:00 AM EST) CASE REPORT Gynecologic Cytology Report Case: [id number] Authorizing Provider: Loan Vick MD Collected: 05/12/2020 1100 Ordering Location: [facility] Received: 05/12/2020 1100 First Screen: Leesa Jose CT Specimen: LIQUID-BASED PAP - CERVICAL/ENDOCERV ICAL, Cervix, Endocervical 05/14/2020 10:48 AM EST [facility] PAP FINAL DIAGNOSIS Negative for intraepithelial lesion or malignancy 05/14/2020 10:48 AM [facility] at 1048 EST MICROSCOPIC DESCRIPTION Microscopic examination is performed and the findings corroborate the diagnosis 05/14/2020 10:[address] [facility] PAP SMEAR ADEQUACY Satisfactory for evaluation 05/14/2020 10:48 AM EST [facility] ENDOCERVICAL T-ZONE Transformation zone absent. 05/14/2020 10:48 AM EST [facility] EMBEDDED IMAGES 10:[address] [facility] PAP DISCLAIMER The Pap Smear is a screening test that aids in the detection of cervical cancer and cancer precursors. Both false positive and false negative results can occur. The test should be used at regular intervals, and positive results should be confirmed before definitive therapy. Processed using the ThinPrep Process Improvement Manager Automated cytology screening device ([employer]). 05/14/2020 10:48 AM EST [facility] Thin Prep ENDOCERVICAL STRUCTURE / Unknown 05/12/2020 11:00 AM EST 05/12/2020 11:00 AM EST us Loan Vick MD CYTOLOGY ORDERABLES Final Result [email or web address] [address] [place] [address] * GC CHLAMYDIA THIN PREP (05/12/2020 11:00 AM EST) Chlamydia trachomatis Not Detected Not Detected 05/13/2020 5:39 PM EST PREFERRED [employer], [facility] Neisseria gonorrhoeae Not Detected Not Detected 05/13/2020 5:39 PM EST [facility] [employer] [facility] Thin Prep SPECIMEN FROM UTERINE CERVIX / Unknown 05/12/2020 11:00 AM EST 05/12/2020 11:00 AM EST Narrative PREFERRED [employer], [facility] - 05/13/2020 5:39 PM EST Testing methodology is staff reporter mediated amplification (TMA) using the AptdoubleTwist Combo 2 assay from [employer]. A negative result does not completely rule [...] MICROBIOLOGY - GENERAL ORD ERABLES Final Result [facility] [employer] [facility] [address] [facility] , [address] [place], [place] [id number] from Last 3 Months or Most Recently Relevant to Health Maintenance Insurance [employer] PPO Care Teams Dock Builder Relationship Specialty Start Date End Date Loan Vick MD [address] [place] [address] PCP - General Family Medicine 03/23/16
--- OUTSIDE RECORDS SUMMARY | 2024-12-17 11:44 | XMS_ITS | Encounter Summary ---
Author Organization [facility] Address [address] [place] [address] Care Team Providers Care Production Posting Clerk Name Role Phone Loan Vick MD Primary Care Provider +1- [phone] Encounter Details Date Type Department Care Team [...] on filedocumented in this encounter Care Teams Production Posting Clerk Relationship Specialty Start Date End Date Loan Vick MD [address] [place] [address] PCP - General Family Medicine 08/23/24 documented as of this encounter
--- OUTSIDE RECORDS SUMMARY | 2024-12-17 11:44 | XMS_ITS | Clinical Summary ---
Author Organization [facility] Address [address] [place] [address] Care Team Providers Care Dough Braker Name Role Phone Loan Vick MD Primary Care Provider +1- [phone] Allergies Active Allergy Reactions Criticality Noted Date [...] to take to her appointment with primary CIVIL PREPAREDNESS COORDINATOR next week. Patient reports history of decreased movement for the past day or so though has felt some movement. movement noted on ultrasound today. We discussed careful return precautions regarding decreased movement and to report to primary CIVIL PREPAREDNESS COORDINATOR if decreased movement has occurred. Assessment & [...] [facility] [address] [facility] [address] [place] [phone] Deven Chinchilla MD History of IUFD (Primary Dx); Insulin controlled gestational diabetes mellitus (GDM) in third trimester 11/28/2024 1:50 PM EDT - 11/28/2024 11:59 PM EDT Hospital Encounter [facility] [address] [place] [address] Harini Gilbert DO Discharge Disposition: Home or Self Care 11/28/2024 Travel 11/26/2024 Medication Therapy Management [facility] [address] [facility] [address] [place] [phone] Deven Chinchilla MD 11/23/2024 Refill [facility] [address] [facility] [address] [place] [address] Deven Chinchilla MD 10/25/2024 2:45 PM EDT Office Visit [facility] [address] [phone] Deven Chinchilla MD History of IUFD (Primary Dx) 10/25/2024 1:26 PM EDT - 10/25/2024 11:59 PM EDT Hospital Encounter [facility] [address] [place] [address] Shameka Chandler MD History of IUFD Discharge Disposition: Home or Self Care 10/25/2024 Travel 09/27/2024 3:15 PM EDT Office Visit [facility] [address] [address] Shameka Chandler MD History of IUFD (Primary Dx) 09/27/2024 2:40 PM EDT - 09/27/2024 11:59 PM EDT Hospital Encounter [facility] [address] [place] [address] Shameka Chandler MD History of [...] Procedure Name Priority Date/Time Associated Diagnosis Comments [facility] Routine 11/28/2024 2:55 PM EDT History of IUFD [facility] Routine 10/25/2024 2:00 PM EDT History of IUFD [facility] Routine 09/27/2024 3:24 PM EDT History of IUFD from Last 3 Months Results * [facility] (11/28/2024 2:55 PM EDT) Only the most recent of3 resultswithin the time period is included. Anatomical Region Laterality Modality Ultrasound 11/28/2024 2:31 PM EDT Narrative 11/28/2024 3:06 PM EDT PAT NAME: SANDEEP BRITO MED REC#: [id number] DA: [id number] PAT GEND: F PAT TYPE: O EXAM TED: [id number] REF PHYS HARINI GILBERT Comparison Studies The [...] EFW (oz) 15 oz EFW by: Hadlock (YFL-XL-FL-FL) Extended Cav. septi pel. tr 5.7 mm Interior Specialist 6.3 mm CM 5.7 mm 10% [...] 4 weeks before IOL. Coding ======= Description: 49270-31 Follow Up Ultrasound Description: 93944-69 BPP without NST Car Runner: Kristine Camp RDMS Physician: Deven Chinchilla MD, FACOG Electronically signed by: Deven Chinchilla MD, FACOG at: 15:06 Procedure Note Deven Chinchilla MD - 11/28/2024 PAT NAME: SANDEEP BRITO MED REC#: [id number] DA: [id number] PAT GEND: F PAT TYPE: O EXAM TED: [id number] REF PHYS HARINI GILBERT Comparison Studies The findings of this study are compared to the prior ultrasound studydated 10/25/24 Patient Status Outpatient Indication ======== Gestational diabetes. 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 Previous child with cerebral palsy.Hx seizures. Morbid obesity BMI 43. Maternal Assessment Weuhdt245 cm Height (ft)5 ft Height (in)1 in Qlvxtq411 kg Weight (lb)223 lb BMI42.65 kg/m Method ======= Transabdominal ultrasound examination. View: Adequate view ========= Cummins . Number of fetuses: 1 Dating ====== Method of dating:based on stated ROHINI GA by prior [id number] w + 6 d ROHINI by prior assessment:01/17/2025 Ultrasound examination on:11/28/2024 GA by U/S based upon:AC, BPD, Femur, HC GA by U/S35 w + 3 d ROHINI by U/S:12/30/2024 Previous dating:based on stated ROHINI, selected on 10/25/2024 Agreed ROHINI of previous datin01/17/2025 Assigned:based on stated ROHINI, selected on 11/28/2024 Assigned GA32 w + 6 d Assigned ROHINI:01/17/2025 [id number] d Biometry Standard BPD88.3 mm 35w 5d 98% Hadlock TNC570.5 mm 38w 2d >99% Sindy HC322.8 mm 36w 3d 94% Hadlock Cerebellum tr43.7 mm 34w 0d 65% Hill AC322.9 mm 36w 1d >99% Hadlock Femur64.7 mm 33w 3d 53% Hadlock Ykzrzym60.8 mm 32w 3d 49% Sindy HC / AC1.00 EFW2,683 g 35w 3d 97% Hadlock EFW (lb)5 lb EFW (oz)15 oz EFW by:Hadlock (NBX-XE-QJ-FL) Extended Cav. septi pel. tr5.7 mm Vp6.3 mm CM5.7 mm 10% Nicolaides Head / Face / Neck Cephalic index0.78 33% Nicolaides Extremities / Bony Struc FL / BPD0.73 FL / HC0.20 FL / AC0.20 Other Structures UEQ373 bpm General Evaluation Cardiac activity present. FHR [...] in 4 weeks before IOL. Coding ======= Description:51572-21 Follow Up Ultrasound Description:64116-88 BPP without NST Car Runner: Kristine Camp RDKY Physician: Deven Chinchilla MD, FACOG Electronically signed by: Deven Chinchilla MD, FACOG at: 15:06 Deven Chinchilla MD [facility] ORDERABLES Final Result from Last 3 Months Insurance [employer] Care Teams Dough Braker Relationship Specialty Start Date End Date Loan Vick MD [address] [place] [address] PCP - General Family Medicine 08/23/24
[2024-12-17 11:45] VITALS: BMI 41.5
--- OUTSIDE RECORDS SUMMARY | 2024-12-17 11:45 | XMS_ITS | Encounter Summary ---
Author Organization [facility] Address [address] [place] [address] Care Team Providers Care Cst Name Role Phone Loan Vick MD Primary Care Provider +1- [phone] Encounter Details Date Type Department Care Team (Late st Contact Info) Description 11/26/2024 Medication Therapy Management [facility] MED[facility] [address] [facility] [address] [place] [address] Deven Chinchilla MD [address] [facility] [address] [place] [address] Social History Tobacco Use Types Packs/Day Years [...] on filedocumented in this encounter Care Teams Cst Relationship Specialty Start Date End Date Loan Vick MD [address] [place] [address] PCP - General Family Medicine 08/23/24 documented as of this encounter
--- OUTSIDE RECORDS SUMMARY | 2024-12-17 11:45 | XMS_ITS | Encounter Summary ---
Author Organization [facility] [place] [address] Care Team Providers Care Jewelry Sorter Name Role Phone Loan Vick MD Primary Care Provider +1- [phone] Reason for Visit * Reason Comments Medication Refill Encounter Details Date Type Department Care Team (Late st Contact Info) Description 04/21/2018 Refill [facility] [address] [facility] [place] [address] Loan Vick MD [address] [place] [address] Medication Refill Social History Tobacco [...] documented as of this encounter Care Teams Jewelry Sorter Relationship Specialty Start Date End Date Loan Vick MD [address] [place] [phone] PCP - General Family Medicine 03/23/16 documented as of this encounter
--- OUTSIDE RECORDS SUMMARY | 2024-12-17 11:45 | XMS_ITS | Encounter Summary ---
Author Organization [facility]stem Address [address] [place] [phone] Care Team Providers Care Materials Planner/Production Planner Name Role Phone Loan Vick MD Primary Care Provider +1- [phone] Reason for Visit * Reason Comments Med Refill Encounter Details Date Type Department Care Team (Late st Contact Info) Description 11/23/2024 Refill [facility] MEDIC[facility] [address] [facility] [address] [place] [address] Deven Chinchilla MD [address] [facility] [address] [place] [address] Social History Tobacco Use Types Packs/Day Years [...] on filedocumented in this encounter Care Teams Materials Planner/Production Planner Relationship Specialty Start Date End Date Loan Vick MD [address] [place] [address] PCP - General Family Medicine 08/23/24 documented as of this encounter
[2024-12-17 12:06] LABS: Microscopic, Urine URINE MICROSCOPIC (MICROSCOPIC)
[2024-12-17 12:10] VITALS: BP 103/70; PULSE 92; RESP 19; TEMP 36.7; O2SAT 100; BMI 41.5
[2024-12-17 12:13] LABS: Color,Urine YELLOW (Yellow); Glucose,Urine (UA) Negative (Negative); Ketones,Urine 1+ (Negative); Leukocyte Esterase,Urine 1+ (Negative); PH,Urine 6.0 (5.0-8.5); Protein,Urine TRACE (Negative); Specific Gravity, Urine >= 1.030 (1.005-1.030); Urobilinogen,Urine 0.2 EU/dl (0.2)
[2024-12-17 12:19] LABS: Fetal Membrane Rupture (Rapid) Negative (Negative)
[2024-12-17 12:20] LABS: Bilirubin,Urine 1+ (Negative)
[2024-12-17 12:27] LABS: RBC,Urine Occasional #/hpf (0-3); Squamous Epithelial Cell,Urine TNTC #/hpf (0-5)
[2024-12-17 12:28] LABS: Bacteria,Urine 4+ /lpf
[2024-12-17] MEDS: LACTATED RINGERS 1000ML 1,000 ML 999 ML IV (12:34)
== END 2024-12-17 16:27 | disposition home or self-care (01) ==
LOC: OBOUT 11:42 → OB 11:44
PROVIDERS: PCP Family Medicine; Visit Provider Obstetrics & Gynecology
DX: O24.414 Gestational diabetes mellitus in pregnancy, insulin controlled (principal); O99.213 Obesity complicating pregnancy, third trimester; O09.293 Supervision of pregnancy with other poor reproductive or obstetric history, third trimester; E66.9 Obesity, unspecified; Z3A.35 35 weeks gestation of pregnancy
CPT/HCPCS: 59025; 81001; 84112; 87086; 96360; 99212; G0463; J7120

== ENCOUNTER 2024-12-18 11:49 | Outpatient (CLI) | payer BC, SELFPAY ==
--- OUTSIDE RECORDS SUMMARY | 2024-10-25 13:26 | XMS_ITS | Encounter Summary ---
Author Organization [facility] Address [address] [place] [id number] Care Team Providers Care Elementary School Counselor Name Role Phone Loan Vick MD Primary Care Provider +1- [phone] Reason for Referral * Diagnostic Imaging (Routine) - Closed Specialty Diagnoses / Procedures Referred By Contac t Referred To Contact Radiology Diagnoses History of IUFD Procedures US [facility] [place] Shameka Chandler MD [address] [place] [address] Phone: tel: fax: Referral ID Status Reason Start Date Expiration Date Visits Re quested Visits Authorized Closed 10/02/2024 01/01/2026 1 1 Reason for Visit * Diagnostic Imaging (Routine) - Closed Specialty Diagnoses / Procedures Referred By Kennedy messina Referred To Contact Radiology Diagnoses History of IUFD Procedures US [facility] [place] Shameka Chandler MD [address] [address] Phone: tel: fax: Referral ID Status Reason Start Date Expiration Date Visits Re quested Visits Authorized Closed 10/02/2024 01/01/2026 1 1 Encounter Details Date Type Department Care Team (Late st Contact Info) Description 10/25/2024 1:26 PM EDT - 10/25/2024 11:59 PM EDT Hospital Encounter [facility] US PER DIAG CTR [address] [facility] [place] [phone] Shameka Chandler MD [address] [facility] [address] [place], [place] [address] History of IUFD Discharge Disposition: Home or [...] Priority Date/Time Associated Diagnosis Comments [facility] Routine 10/25/2024 2:00 PM EDT History of IUFD documented in this encounter Results * [facility] (10/25/2024 2:00 PM EDT) Anatomical Region Laterality Modality Ultrasound 10/25/2024 1:37 PM EDT Narrative 10/25/2024 2:13 PM EDT PAT NAME: SANDEEP BRITO MED REC#: [id number] DA: [id number] PAT GEND: F PAT TYPE: O EXAM TED: [id number] REF PHYS HARINI MONTEZ Comparison Studies The [...] EFW (oz) 11 oz EFW by: Hadlock (LKR-NC-JG-FL) Extended Cav. septi pel. tr 5.8 mm Lock Setter 6.4 mm CM 6.6 mm 47% Nicolaides [...] Normal Heart / Thorax 3-vessel view: Normal 8-zpawiq-nfphoxj view: normal Cord insertion: Normal Stomach: Appears [...] 1 week given size. Coding ======= Description: 48350-54 Follow Up Guidance Services Coordinator: RT Lashon Wolf , [facility] Physician: Deven Chinchilla MD, FACOG Electronically signed by: Deven Chinchilla MD, FACOG at: 14:13 Procedure Note Deven Chinchilla MD - 10/25/2024 PAT NAME: SANDEEP BRITO MED REC#: [id number] DA: [id number] PAT GEND: F PAT TYPE: O EXAM TED: [id number] REF PHYS MELIDA HARINI Comparison Studies The findings of this study are compared to the prior ultrasound studydated 09/27/24 Patient Status Outpatient Indication ======== 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 MO BMI 42. H/O seizures. Previous child with cerebralpalsy. Maternal Assessment Kbmyfh137 cm Height (ft)5 ft Height (in)1 in Dxqbob886 kg Weight (lb)221 lb BMI42.27 kg/m Method ======= Transabdominal ultrasound examination. View: Suboptimal view: limited byfetal position ========= Cummins . Number of fetuses: 1 Dating ====== Method of dating:based on stated ROHINI GA by prior w + 0 d ROHNII by prior assessment:01/17/2025 Ultrasound examination on:10/25/2024 GA by U/S based upon:AC, BPD, Femur, HC GA by U/S30 w + 5 d ROHINI by U/S:12/29/2024 Previous dating:based on stated ROHINI, selected on 09/27/2024 Agreed ROHINI of previous datin01/17/2025 Assigned:based on stated ROHINI, selected on 10/25/2024 Assigned GA28 w + 0 d Assigned ROHINI:01/17/2025 hdyjou311 d Biometry Standard BPD74.8 mm 30w 0d 92% Hadlock CBN752.5 mm 32w 6d >99% Sindy HC280.1 mm 30w 5d 92% Hadlock Cerebellum tr34.6 mm 29w 0d 79% Hill AC278.9 mm 32w 0d >99% Hadlock Femur57.0 mm 29w 6d 86% Hadlock Nirxrtx41.4 mm 29w 0d 72% Sindy HC / AC1.00 EFW1,686 g 30w 5d >99% Hadlock EFW (lb)3 lb EFW (oz)11 oz EFW by:Hadlock (ERD-HP-TG-FL) Extended Cav. septi pel. tr5.8 mm Vp6.4 mm CM6.6 mm 47% Nicolaides Head / Face / Neck Cephalic index0.74 6% Nicolaides Extremities / Bony Struc FL / BPD0.76 FL / HC0.20 FL / AC0.20 Other Structures LIX232 bpm General Evaluation Cardiac activity present. FHR [...] LVOT view:Normal Heart / Thorax 3-vessel view:Normal 4-dxnaty-vnfoncf view:normal Cord insertion:Normal Stomach:Appears normal Kidneys:Appears normal [...] x 1 week given size. Coding ======= Description:88544-74 Follow Up Guidance Services Coordinator: RT Lashon Wolf , RDMS Physician: Deven Chinchilla MD, ZULEMAOG Electronically signed by: Deven Chinchilla MD, ZULEMAOG at: 14:13 us Shameka Chandler MD IMG US ORDERABLES Final Result documented in this encounter Visit Diagnoses Diagnosis History of IUFD documented in this encounter Care Teams [employer] Counselor Relationship Specialty Start Date End Date Loan Vick MD [address] [place] [address] PCP - General Family Medicine 08/23/24 documented as of this encounter
--- OUTSIDE RECORDS SUMMARY | 2024-10-25 14:45 | XMS_ITS | Encounter Summary ---
Author Organization [facility] Address [address] [place] [phone] Care Team Providers Care Chronic Care Nurse Name Role Phone Loan Vick MD Primary Care Provider +1- [phone] Reason for Referral * Diagnostic Imaging (Routine) - Authorized Specialty Diagnoses / Procedures Referred By Contact Referred To Contact Obstetrics and Gynecology Diagnoses History of IUFD Procedures [facility] Deven Chinchilla MD [address] [facility] [address] [place] [address] Phone: tel: fax: [facility] MATERNAL MEDICINE [address] [facility] [address] [place] [address] Phone: tel: fax: Referral ID Status Reason Start Date Expiration Date V isits Requested Visits Authorized [id number] Authorized 10/25/2024 01/24/2026 2 2 Reason for Visit * Reason Comments hx 39 week IUFD; MO; hx seizures; prev. child with CP Encounter Details Date Type Department Care Team (Late Contact Info) Description 10/25/2024 2:45 PM EDT Office Visit [facility] [address] [facility] [address] [place] [phone] Deven Chinchilla MD [address] [facility] [address] [place] [address] History of IUFD (Primary Dx) Social History [...] to take to her appointment with primary DAY LIGHT RELIEF OPERATOR next week. Patient reports history of decreasedfetal movement for the past day or so though has felt some movement. movement noted on ultrasound today. We discussed careful return precautions regarding decreased movement and to reportto primary DAY LIGHT RELIEF OPERATOR if decreased movement has occurred. Follow [...] [facility]. Deven Chinchilla MD, FACOG Maternal Medicine, [facility] * Deven Chinchilla MD [...] to take to her appointment with primary DAY LIGHT RELIEF OPERATOR next week. Patient reports history of decreasedfetal movement for the past day or so though has felt some movement. movement noted on ultrasound today. We discussed careful return precautions regarding decreased movement and to reportto primary DAY LIGHT RELIEF OPERATOR if decreased movement has occurred. documented in this encounter Plan of Treatment Scheduled Orders Name Type Priority Associated Diagnoses Orde r Schedule [facility] Imaging Routine History of IUFD Every 4 Weeks for 2 Occurrences starting 10/25/2024 until 10/25/2025, 1 completed documented as of this encounter Results * [facility] (11/28/2024 2:55 PM EDT) Anatomical Region Laterality Modality Ultrasound 11/28/2024 2:31 PM EDT Narrative 11/28/2024 3:06 PM EDT PAT NAME: SANDEEP BRITO MED REC#: [id number] DA: [id number] PAT GEND: F PAT TYPE: O EXAM TED: [id number] REF PHYS HARINI GILBERT Comparison Studies The [...] EFW (oz) 15 oz EFW by: Hadlock (XFI-QP-XH-FL) Extended Cav. septi pel. tr 5.7 mm Hot Dimpling Machine Operator 6.3 mm CM 5.7 mm 10% Nicolaides [...] 4 weeks before IOL. Coding ======= Description: 67827-15 Follow Up Ultrasound Description: 69822-50 BPP without NST Svp Digital Ad Sales: Kristine Camp RDMS Physician: Deven Chinchilla MD, FACOG Electronically signed by: Deven Chinchilla MD, FACOG at: 15:06 Procedure Note Deven Chinhcilla MD - 11/28/2024 PAT NAME: SANDEEP BRITO MED REC#: [id number] DA: 2000 PAT GEND: F PAT TYPE: O EXAM TED: [id number] REF PHYS HARINI GILBERT Comparison Studies The findings of this study are compared to the prior ultrasound studydated 10/25/24 Patient Status Outpatient Indication ======== Gestational diabetes. 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 Previous child with cerebral palsy.Hx seizures. Morbid obesity BMI 43. Maternal Assessment Dbxlog051 cm Height (ft)5 ft Height (in)1 in Zuzmak714 kg Weight (lb)223 lb BMI42.65 kg/m Method ======= Transabdominal ultrasound examination. View: Adequate view ========= Cummins . Number of fetuses: 1 Dating ====== Method of dating:based on stated ROHINI GA by prior vapgqrtcwo34 w + 6 d ROHINI by prior assessment:01/17/2025 Ultrasound examination on:11/28/2024 GA by U/S based upon:AC, BPD, Femur, HC GA by U/S35 w + 3 d ROHINI by U/S:12/30/2024 Previous dating:based on stated ROHINI, selected on 10/25/2024 Agreed ROHINI of previous datin01/17/2025 Assigned:based on stated ROHINI, selected on 11/28/2024 Assigned GA32 w + 6 d Assigned ROHINI:01/17/2025 ishtvv773 d Biometry Standard BPD88.3 mm 35w 5d 98% Hadlock SFJ514.5 mm 38w 2d >99% Sindy HC322.8 mm 36w 3d 94% Hadlock Cerebellum tr43.7 mm 34w 0d 65% Hill AC322.9 mm 36w 1d >99% Hadlock Femur64.7 mm 33w 3d 53% Hadlock Ytsugor93.8 mm 32w 3d 49% Sindy HC / AC1.00 EFW2,683 g 35w 3d 97% Hadlock EFW (lb)5 lb EFW (oz)15 oz EFW by:Hadlock (NVB-BP-EX-FL) Extended Cav. septi pel. tr5.7 mm Vp6.3 mm CM5.7 mm 10% Nicolaides Head / Face / Neck Cephalic index0.78 33% Nicolaides Extremities / Bony Struc FL / BPD0.73 FL / HC0.20 FL / AC0.20 Other Structures ASZ319 bpm General Evaluation Cardiac activity present. FHR [...] in 4 weeks before IOL. Coding ======= Description:68570-24 Follow Up Ultrasound Description:25543-48 BPP without NST Svp Digital Ad Sales: Kristine Camp RDOR Physician: Deven Chinchilla MD, FACOG Electronically signed by: Deven Chinchilla MD, FACOG at: 15:06 us Deven Chinchilla MD IMG US ORDERABLES Final Result documented in this encounter Visit Diagnoses Diagnosis History of IUFD- Primary documented in this encounter Care Teams Chronic Care Nurse Relationship Specialty Start Date End Date Loan Vick MD [address] [place] [address] PCP - General Family Medicine 08/23/24 documented as of this encounter
--- OUTSIDE RECORDS SUMMARY | 2024-11-28 13:50 | XMS_ITS | Encounter Summary ---
[facility] Address [address] [place] [address] Care Team Providers Care Skip Loader Name Role Phone Loan Vick MD Primary Care Provider +1- [phone] Reason for Visit * Diagnostic Imaging (Routine) - Authorized Specialty Diagnoses / Procedures Referred By Contact Referred To Contact Obstetrics and Gynecology Diagnoses History of IUFD Procedures US [facility] Chinchilla, Deven Morrissey MD [address] [facility] [address] [place] [address] Phone: tel: fax: [facility] MATERNAL MEDICINE [address] [facility] [address] [place] [address] Phone: tel: fax: Referral ID Status Reason Start Date Expiration Date V isits Requested Visits Authorized [id number] Authorized 10/25/2024 01/24/2026 2 2 Encounter Details Date Type Department Care Team (Latest Contact Info) Description 11/28/2024 1:50 PM EDT - 11/28/2024 11:59 PM EDT Hospital [facility] [address] [place] [address] Harini Gilbert, DO [address] [place] [facility] [address] [place], [place] [address] Discharge Disposition: Home or Self Care Social [...] Name Priority Date/Time Associated Diagnosis Comments [facility] Routine 11/28/2024 2:55 PM EDT History of IUFD documented in this encounter Results * [facility] (11/28/2024 2:55 PM EDT) Anatomical Region Laterality Modality Ultrasound 11/28/2024 2:31 PM EDT Narrative 11/28/2024 3:06 PM EDT PAT NAME: SANDEEP BRITO MED REC#: [id number] DA: [id number] PAT GEND: F PAT TYPE: O EXAM TED: [id number] REF PHYS HARINI GILBERT Comparison Studies The [...] EFW (oz) 15 oz EFW by: Hadlock (SFU-BC-NN-FL) Extended Cav. septi pel. tr 5.7 mm Coal Chute Worker 6.3 mm CM 5.7 mm 10% [...] 4 weeks before IOL. Coding ======= Description: 80537-84 Follow Up Ultrasound Description: 83136-94 BPP without NST Entry Engineer: Kristine Camp RDMS Physician: Deven Chinchilla MD, FACOG Electronically signed by: Deven Chinchilla MD, FACOG at: 15:06 Procedure Note Deven Chinchilla MD - 11/28/2024 PAT NAME: SANDEEP BRITO MED REC#: [id number] DA: [id number] PAT GEND: F PAT TYPE: O EXAM TED: [id number] REF PHYS HARINI GILBERT Comparison Studies The findings of this study are compared to the prior ultrasound studydated 10/25/24 Patient Status Outpatient Indication ======== Gestational diabetes. 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 Previous child with cerebral palsy.Hx seizures. Morbid obesity BMI 43. Maternal Assessment Tvkryx024 cm Height (ft)5 ft Height (in)1 in Ijykgm022 kg Weight (lb)223 lb BMI42.65 kg/m Method ======= Transabdominal ultrasound examination. View: Adequate view ========= Cummins . Number of fetuses: 1 Dating ====== Method of dating:based on stated ROHINI GA by prior qavnponejp36 w + 6 d ROHINI by prior assessment:01/17/2025 Ultrasound examination on:11/28/2024 GA by U/S based upon:AC, BPD, Femur, HC GA by U/S35 w + 3 d ROHINI by U/S:12/30/2024 Previous dating:based on stated ROHINI, selected on 10/25/2024 Agreed ROHINI of previous datin01/17/2025 Assigned:based on stated ROHINI, selected on 11/28/2024 Assigned GA32 w + 6 d Assigned ROHINI:01/17/2025 vazxrk500 d Biometry Standard BPD88.3 mm 35w 5d 98% Hadlock GOS631.5 mm 38w 2d >99% Sindy HC322.8 mm 36w 3d 94% Hadlock Cerebellum tr43.7 mm 34w 0d 65% Hill AC322.9 mm 36w 1d >99% Hadlock Femur64.7 mm 33w 3d 53% Hadlock Wupninl89.8 mm 32w 3d 49% Sindy HC / AC1.00 EFW2,683 g 35w 3d 97% Hadlock EFW (lb)5 lb EFW (oz)15 oz EFW by:Hadlock (RMR-UB-VR-FL) Extended Cav. septi pel. tr5.7 mm Vp6.3 mm CM5.7 mm 10% Nicolaides Head / Face / Neck Cephalic index0.78 33% Nicolaides Extremities / Bony Struc FL / BPD0.73 FL / HC0.20 FL / AC0.20 Other Structures EHT789 bpm General Evaluation Cardiac activity present. FHR [...] in 4 weeks before IOL. Coding ======= Description:46840-79 Follow Up Ultrasound Description:43724-54 BPP without NST Entry Engineer: Kristine Camp RDDC Physician: Deven Chinchilla MD, FACOG Electronically signed by: Deven Chinchilla MD, FACOG at: 15:06 us Deven Chinchilla MD IMG US ORDERABLES Final Result documented in this encounter Visit Diagnoses Not on filedocumented in this encounter Care Teams Skip Loader Relationship Specialty Start Date End Date Loan Vick MD [address] [place] [address] PCP - General Family Medicine 08/23/24 documented as of this encounter
--- OUTSIDE RECORDS SUMMARY | 2024-11-28 14:45 | XMS_ITS | Encounter Summary ---
Author Organization [facility] Address [address] [place] [address] Care Team Providers Care Newspaper Distributor Supervisor Name Role Phone Loan Vick MD Primary Care Provider +1- [phone] Reason for Visit * Reason Comments hx 39 wk IUFD, MO, LGA, prev child CP, h x seizures Encounter Details Date Type Department Care Team (Late st Contact Info) Description 11/28/2024 2:45 PM EDT Office Visit [facility] MATERNAL MEDICINE [address] [facility] [address] [place] [address] Deven Chinchilla MD [address] [facility] [address] [place] [address] History of IUFD (Primary Dx); Insulin controlled [...] [facility]S. Deven Chinchilla MD, FACOG Maternal Medicine, [facility] documented in this encounter Plan of Treatment Not on file documented as of this encounter Visit Diagnoses Diagnosis History of IUFD- Primary Insulin controlled gestational diabetes mellitus (GDM) in third trimester documented in this encounter Care Teams Newspaper Distributor Supervisor Relationship Specialty Start Date End Date Loan Vick MD [address] [place] [address] PCP - General Family Medicine 08/23/24 documented as of this encounter
--- OUTSIDE RECORDS SUMMARY | 2024-12-18 11:58 | XMS_ITS | Clinical Summary ---
Author Organization [facility] Address [address] [address] Phone Care Team Providers Care Leasing Machine Tender Name Role Phone Unavailable Unavailable Conditions or Problems No information available. Medications No information available. Medications Administered No information available. Allergies, Adverse Reactions, Alerts No information available. Results No information available. Plan of Care No information available. Procedures Code Procedure Name Date Entry Date CPT-26986 COVID-19 Moderna CPT-0012A IZ administration - COVID-19 - Moderna 2n d dose CPT-87985 COVID-19 Moderna CPT-78104 IZ administration - injection - single 20 [...]
--- OUTSIDE RECORDS SUMMARY | 2024-12-18 11:59 | XMS_ITS | Encounter Summary ---
Author Organization [facility] [address] Care Team Providers Care Taxi Dancer Name Role Phone Loan Vick MD Primary Care Provider +1- [phone] Encounter Details Date Type Department Care Team (Late st Contact Info) Description 08/30/2024 Orders Only SE Physical Therapy [facility] [address] [facility] [place] [address] Raquel Torres, PT [address] [place] [address] Social History Tobacco Use Types [...] on filedocumented in this encounter Care Teams Taxi Dancer Relationship Specialty Start Date End Date Loan Vick MD [address] [place] [address] PCP - General Family Medicine 03/23/16 documented as of this encounter
--- OUTSIDE RECORDS SUMMARY | 2024-12-18 11:59 | XMS_ITS | Encounter Summary ---
Author Organization [facility] Address [address] [place] [address] Care Team Providers Care Radio Performer Name Role Phone Loan Vick MD Primary Care Provider +1- [phone] Encounter Details Date Type Department Care Team [...] on filedocumented in this encounter Care Teams Radio Performer Relationship Specialty Start Date End Date Loan Vick MD [address] [place] [address] PCP - General Family Medicine 08/23/24 documented as of this encounter
--- OUTSIDE RECORDS SUMMARY | 2024-12-18 11:59 | XMS_ITS | Encounter Summary ---
Author Organization [place] [address] Care Team Providers Care Egg Processor Name Role Phone Loan Vick MD Primary Care Provider +1- [phone] Reason for Visit * Reason Comments Medication Refill Encounter Details Date Type Department Care Team (Late st Contact Info) Description 11/30/2024 Refill SEP [facility] [address] [facility] [place] [address] Loan Vick MD [address] [place] [address] Medication Refill Social History Tobacco [...] and sent to requesting pharmacy. Routed to [facility] if an appointment is needed. documented in [...] documented as of this encounter Care Teams Egg Processor Relationship Specialty Start Date End Date Loan Vick MD [address] [place] [address] PCP - General Family Medicine 03/23/16 documented as of this encounter
--- OUTSIDE RECORDS SUMMARY | 2024-12-18 11:59 | XMS_ITS | Clinical Summary ---
Author Organization 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 Deven Chinchilla via [...] Department Care Team Description 11/30/2024 Refill SEP [facility] [address] [place] [address] Loan Vick MD Medication Refill 09/19/2024 9:49 AM EDT - 09/19/2024 11:59 PM EDT Hospital Encounter [facility] Physical Therapy [address] [place] [address] Raquel Torres, PT Discharge Disposition: Home or [...] Armando Monreal MD; Location: [facility]; Service: Ophthalmology Medical devices from this surgery are in the Medical Devices section. 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 COLONOSCOPY 08/07/2015 N/A COLONOSCOPY and ESOPHAGOGASTRODUODENOSCOPY with biopsy; Surgeon: Jamey Schwab MD; Location: [facility] ENDOSCOPY; Service: Endoscopy UPPER GASTROINTESTINAL ENDOSCOPY 08/07/2015 N/A Surgeon: Jamey Schwab MD; Location: [facility] ENDOSCOPY; Service: Endoscopy DENTAL SURGERY permanent retainer in mouth CATARACT REMOVAL 11/05/2015 Right RIGHT EYE CATARACT EXTRACTION WITH PHACOEMULSIFICATION AND INTRAOCULAR LENS WITH RIGHT EYE WOUND REVISION ; Surgeon: Armando Monreal MD; Location: [facility]; Service: Ophthalmology Medical devices from this surgery are in the Medical Devices section. EYE SURGERY 11/05/2015 Right Surgeon: Armando Monreal MD; Location: [facility]; Service: Ophthalmology Medical devices from this surgery are in the Medical Devices section. EYE SURGERY 02/24/2016 Right RIGHT EYE YAG LASER CAPSULOTOMY; Surgeon: Armando Monreal MD; Location: [facility]; Service: Ophthalmology DILATION AND CURETTAGE OF UTERUS 09/16/2021 - 10/15/2021 CT NEEDLE BIOPSY LIVER 02/07/2024 CT NEEDLE BIOPSY LIVER 02/07/2024 Eduardo Betancourt MD [facility] CT Medical History Medical History Date Comments [...] Cook RMA Medical Devices Implanted Type Area Template Maker Device Identifier Shelf Expiration Date Model / Serial / Lot Cornea Tissue - [id number] Implanted:Qty: 1 on 03/27/2014 by Armando Monreal MD at [facility] Right: Eye UNKNOWN 04/01/2014 [id number] / [id number] / Lens Intraocular Preloaded 19.0 Diopter - [id number] Implanted:Qty: 1 on 11/05/2015 by Armando Monreal MD at [facility] Right: Eye EL LAB:SURG 03/17/2018 [id number] / [id number] / Procedures Procedure Name Priority Date/Time Associated Diagnosis Comments SCANNED LABS 11/24/2024 12:59 PM EDT SCANNED LABS 11/06/2024 11:04 PM EDT SCANNED LABS 10/24/2024 5:33 PM EDT GC CHLAMYDIA THIN PREP Routine 05/12/2020 11:00 AM EST Well adult exam GUNNERY/ORDNANCE OFFICER CYTOLOGY REQUEST (PAP ONLY) Routine 05/12/2020 11:00 AM EST Well adult exam from Last 3 Months or Most Recently Relevant to Health Maintenance Results * SCANNED LABS (11/24/2024 12:59 PM EDT) Only the most recent of3 resultswithin the time period is included. 11/24/2024 12:5 9 PM EDT us Unknown Provider HEMATOLOGY ORDERABLES Final Res ult * GUNNERY/ORDNANCE OFFICER CYTOLOGY REQUEST (PAP ONLY) (05/12/2020 11:00 AM EST) CASE REPORT Gynecologic Cytology Report Case: [id number] Authorizing Provider: Loan Vick MD Collected: 05/12/2020 1100 Ordering Location: [facility] Received: 05/12/2020 1100 First Screen: Leesa Jose CT Specimen: LIQUID-BASED PAP - CERVICAL/ENDOCERV ICAL, Cervix, Endocervical 05/14/2020 10:48 AM EST [facility] PAP FINAL DIAGNOSIS Negative for intraepithelial lesion or malignancy 05/14/2020 10:48 AM [facility] at 1048 EST MICROSCOPIC DESCRIPTION Microscopic examination is performed and the findings corroborate the diagnosis 05/14/2020 10:[address] [facility] PAP SMEAR ADEQUACY Satisfactory for evaluation 05/14/2020 10:48 AM EST [facility] ENDOCERVICAL T-ZONE Transformation zone absent. 05/14/2020 10:48 AM EST [facility] EMBEDDED IMAGES 10:[address] [facility] PAP DISCLAIMER The Pap Smear is a screening test that aids in the detection of cervical cancer and cancer precursors. Both false positive and false negative results can occur. The test should be used at regular intervals, and positive results should be confirmed before definitive therapy. Processed using the ThinPrep Collections Clerk Automated cytology screening device (Insightpool). 05/14/2020 10:48 AM EST [facility] Thin Prep ENDOCERVICAL STRUCTURE / Unknown 05/12/2020 11:00 AM EST 05/12/2020 11:00 AM EST us Loan Vick MD CYTOLOGY ORDERABLES Final Result [facility] [address] [place] [address] * GC CHLAMYDIA THIN PREP (05/12/2020 11:00 AM EST) Chlamydia trachomatis Not Detected Not Detected 05/13/2020 5:39 PM EST PREFERRED [employer], [facility] Neisseria gonorrhoeae Not Detected Not Detected 05/13/2020 5:39 PM EST [facility] [employer] [facility] Thin Prep SPECIMEN FROM UTERINE CERVIX / Unknown 05/12/2020 11:00 AM EST 05/12/2020 11:00 AM EST Narrative PREFERRED [employer], [facility] - 05/13/2020 5:39 PM EST Testing methodology is coordinator of health services mediated amplification (TMA) using the Apt24x7 Learning Combo 2 assay from LaTherm/[employer]ensis [employer]. A negative result does not completely [...] - GENERAL ORD ERABLES Final Result [facility] [employer] [facility] [address] [facility] , [address] [place], [place] [id number] from Last 3 Months or Most Recently Relevant to Health Maintenance Insurance RADHA PPO Care Teams Molder Foam Rubber Relationship Specialty Start Date End Date Loan Vick MD [address] [place] [address] PCP - General Family Medicine 03/23/16
--- OUTSIDE RECORDS SUMMARY | 2024-12-18 11:59 | XMS_ITS | Encounter Summary ---
Author Organization [place] Address One [facility] [place] [address] Care Team Providers Care Table Filler Name Role Phone Loan Vick MD Primary Care Provider +1- [phone] Encounter Details Date Type Department Care Team (Latest Contact Info) Description 01/25/2017 Lab Requisition [facility] [address] [place] [id number] Claudia Granado, KJ Encounter for screening for [...] Detected Not Detected 01/26/2017 11:41 AM EDT [facility] Neisseria gonorrhoeae Not Detected Not Detected 01/26/2017 11:41 AM EDT [facility] Swab (specimen) 01/25/2017 1 0:19 AM EDT 01/25/2017 5:18 PM EDT Narrative [facility] - 01/26/2017 11:41 AM EDT Testing methodology is netezza developer mediated amplification (TMA) using the Aptima Combo 2 assay from [employer]DentiMob/Treedom. A negative result does not completely rule [...] of this test were validated by [facility] laboratory. This assay is FDA cleared to test the following specimens: clinician-collected endocervical, vaginal and male urethral swab specimens, patient collected vaginal specimens within a clinic setting, Thin Prep Specimens in PreservCyt Solution, and first-stream, unpreserved male urine specimens. Testing on female urine is not FDA approved by this methodology, but has been developed and validated by the [facility] laboratory. Detailed methodology is available upon request. Claudia Granado APRN MICROBIOLOGY - GENERAL ORD ERABLES Final Result [facility] [address] [place] [address] documented in this encounter Visit Diagnoses Diagnosis [...] documented as of this encounter Care Teams Table Filler Relationship Specialty Start Date End Date Loan Vick MD [address] [place] [address] PCP - General Family Medicine 03/23/16 documented as of this encounter
--- OUTSIDE RECORDS SUMMARY | 2024-12-18 11:59 | XMS_ITS | Clinical Summary ---
Author Organization [facility] Address [address] [place] [address] Care Team Providers Care Electrical Prospecting Observer Name Role Phone Loan Vick MD Primary Care Provider +1- [phone] Allergies Active Allergy Reactions Criticality Noted Date [...] to take to her appointment with primary CLERK GUIDE next week. Patient reports history of decreased movement for the past day or so though has felt some movement. movement noted on ultrasound today. We discussed careful return precautions regarding decreased movement and to report to primary CLERK GUIDE if decreased movement has occurred. Assessment & [...] Description 11/28/2024 2:45 PM EDT Office Visit [facility] [address] [facility] [address] [place] [phone] Deven Chinchilla MD History of IUFD (Primary Dx); Insulin controlled gestational diabetes mellitus (GDM) in third trimester 11/28/2024 1:50 PM EDT - 11/28/2024 11:59 PM EDT Hospital Encounter [facility] US PER DIAG CTR [address] [place] [address] Harini Gilbert DO Discharge Disposition: Home or Self Care 11/28/2024 Travel 11/26/2024 Medication Therapy Management [facility] [address] [facility] [address] [place] [phone] Deven Chinchilla MD 11/23/[address] [facility] [address] [facility] [address] [place] [phone] Deven Chinchilla MD 10/25/2024 2:45 PM EDT Office Visit [facility] [address] [phone] Deven Chinchilla MD History of IUFD (Primary Dx) 10/25/2024 1:26 PM EDT - 10/25/2024 11:59 PM EDT Hospital Encounter [facility] US PER DIAG CTR [address] [place] [address] Shameka Chandler MD History of IUFD Discharge Disposition: Home or Self Care 10/25/2024 Travel 09/27/2024 3:15 PM EDT Office Visit [facility] [address] [address] Shameka Chandler MD History of IUFD (Primary Dx) 09/27/2024 2:40 PM EDT - 09/27/2024 11:59 PM EDT Hospital Encounter [facility] US PER DIAG CTR [address] [place] [address] Shameka Chandler MD History of [...] ANNUAL PHYSICAL 11/09/2023 COVID-19 Vaccine (3 - 2024-2 6 season) 2024 05/27/2020, 04/29/2020 RSV Vaccine - Adults (1 - Ri sk 1-dose series) 12/17/2024 INFLUENZA VACCINE 01/16/2025 04/08/2023, , 03/06/2019, Additional history exists TDAP/TD VACCINES (4 - Td or Tdap) 06/20/2033 06/21/2023, 09/04/2021, 12/09/2009 HEPATITIS C SCREENING Completed 01/27/2024 Procedures Procedure Name Priority Date/Time Associated Diagnosis Comments [facility] Routine 11/28/2024 2:55 PM EDT History of IUFD [facility] Routine 10/25/2024 2:00 PM EDT History of IUFD [facility] Routine 09/27/2024 3:24 PM EDT History of IUFD from Last 3 Months Results * [facility] (11/28/2024 2:55 PM EDT) Only the most recent of3 resultswithin the time period is included. Anatomical Region Laterality Modality Ultrasound 11/28/2024 2:31 PM EDT Narrative 11/28/2024 3:06 PM EDT PAT NAME: SANDEEP BRITO MED REC#: [id number] DA: [id number] PAT GEND: F PAT TYPE: O EXAM TED: [id number] REF PHYS HARINI GILBERT Comparison Studies The [...] EFW (oz) 15 oz EFW by: Hadlock (NYQ-UZ-UI-FL) Extended Cav. septi pel. tr 5.7 mm Bookmobile Librarian 6.3 mm CM 5.7 mm 10% Nicolaides [...] 4 weeks before IOL. Coding ======= Description: 23054-90 Follow Up Ultrasound Description: 33565-34 BPP without NST Museum Tour Guide: Kristine Camp RDMS Physician: Deven Chinchilla MD, FACOG Electronically signed by: Deven Chinchilla MD, FACOG at: 15:06 Procedure Note Deven Chinchilla MD - 11/28/2024 PAT NAME: SANDEEP BRITO MED REC#: [id number] DA: [id number] PAT GEND: F PAT TYPE: O EXAM TED: [id number] REF PHYS HARINI GILBERT Comparison Studies The findings of this study are compared to the prior ultrasound studydated 10/25/24 Patient Status Outpatient Indication ======== Gestational diabetes. 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 Previous child with cerebral palsy.Hx seizures. Morbid obesity BMI 43. Maternal Assessment Povfre958 cm Height (ft)5 ft Height (in)1 in Hxhnai485 kg Weight (lb)223 lb BMI42.65 kg/m Method ======= Transabdominal ultrasound examination. View: Adequate view ========= Cummins . Number of fetuses: 1 Dating ====== Method of dating:based on stated ROHINI GA by prior [id number] w + 6 d ROHINI by prior assessment:01/17/2025 Ultrasound examination on:11/28/2024 GA by U/S based upon:AC, BPD, Femur, HC GA by U/S35 w + 3 d ROHINI by U/S:12/30/2024 Previous dating:based on stated ROHINI, selected on 10/25/2024 Agreed ROHINI of previous datin01/17/2025 Assigned:based on stated ROHINI, selected on 11/28/2024 Assigned GA32 w + 6 d Assigned ROHINI:01/17/2025 lkthta254 d Biometry Standard BPD88.3 mm 35w 5d 98% Hadlock ZNG158.5 mm 38w 2d >99% Sindy HC322.8 mm 36w 3d 94% Hadlock Cerebellum tr43.7 mm 34w 0d 65% Hill AC322.9 mm 36w 1d >99% Hadlock Femur64.7 mm 33w 3d 53% Hadlock Oqxfetn22.8 mm 32w 3d 49% Sindy HC / AC1.00 EFW2,683 g 35w 3d 97% Hadlock EFW (lb)5 lb EFW (oz)15 oz EFW by:Hadlock (BIE-BX-DL-FL) Extended Cav. septi pel. tr5.7 mm Vp6.3 mm CM5.7 mm 10% Nicolaides Head / Face / Neck Cephalic index0.78 33% Nicolaides Extremities / Bony Struc FL / BPD0.73 FL / HC0.20 FL / AC0.20 Other Structures ONL962 bpm General Evaluation Cardiac activity present. FHR [...] in 4 weeks before IOL. Coding ======= Description:76635-35 Follow Up Ultrasound Description:40611-27 BPP without NST Museum Tour Guide: Kristine Camp RDVT Physician: Deven Chinchilla MD, FACOG Electronically signed by: Deven Chinchilla MD, FACOG at: 15:06 Deven Chinchilla MD [facility] ORDERABLES Final Result from Last 3 Months Insurance [employer] Care Teams Electrical Prospecting Observer Relationship Specialty Start Date End Date Loan Vick MD [address] [place] [address] PCP - General Family Medicine 08/23/24
--- OUTSIDE RECORDS SUMMARY | 2024-12-18 12:00 | XMS_ITS | Encounter Summary ---
Author Organization [facility] Address [address] [place] [phone] Care Team Providers Care Low Pressure Kettle Operator Name Role Phone Loan Vick MD Primary Care Provider +1- [phone] Reason for Visit * Reason Comments Med Refill Encounter Details Date Type Department Care Team (Late st Contact Info) Description 11/23/2024 Refill [facility] [address] [facility] [address] [place] [address] Deven Chinchilla MD [address] [facility] [address] [place] [address] Social History Tobacco Use Types Packs/Day Years [...] on filedocumented in this encounter Care Teams Low Pressure Kettle Operator Relationship Specialty Start Date End Date Loan Vick MD [address] [place] [address] PCP - General Family Medicine 08/23/24 documented as of this encounter
--- OUTSIDE RECORDS SUMMARY | 2024-12-18 12:00 | XMS_ITS | Encounter Summary ---
Author Organization [place] [address] Care Team Providers Care Diagnostic Technologist Name Role Phone Loan Vick MD Primary Care Provider +1- [phone] Reason for Visit * Reason Comments Medication Refill Encounter Details Date Type Department Care Team (Late st Contact Info) Description 04/21/2018 Refill SEP [facility] [address] [facility] [place] [address] Loan Vick MD [address] [place] [address] Medication Refill Social History Tobacco [...] documented as of this encounter Care Teams Diagnostic Technologist Relationship Specialty Start Date End Date Loan Vick MD [address] [place] [phone] PCP - General Family Medicine 03/23/16 documented as of this encounter
--- OUTSIDE RECORDS SUMMARY | 2024-12-18 12:00 | XMS_ITS | Encounter Summary ---
Author Organization [facility] Address [address] [place] [address] Care Team Providers Care Scouring Train Operator Chief Name Role Phone Loan Vick MD Primary Care Provider +1- [phone] Encounter Details Date Type Department Care Team [...] on filedocumented in this encounter Care Teams Scouring Train Operator Chief Relationship Specialty Start Date End Date Loan Vick MD [address] [place] [address] PCP - General Family Medicine 08/23/24 documented as of this encounter
--- OUTSIDE RECORDS SUMMARY | 2024-12-18 12:00 | XMS_ITS | Encounter Summary ---
Author Organization [facility] Address [address] [place] [address] Care Team Providers Care Scale Model Maker Name Role Phone Loan Vick MD Primary Care Provider +1- [phone] Encounter Details Date Type Department Care Team (Late st Contact Info) Description 11/26/2024 Medication Therapy Management [facility]ERNAL MEDICINE [address] [facility] [address] [place] [address] Deven Chinchilla MD [address] [facility] [address] [place] [address] Social History Tobacco Use Types Packs/Day Years [...] on filedocumented in this encounter Care Teams Scale Model Maker Relationship Specialty Start Date End Date Loan Vick MD [address] [place] [address] PCP - General Family Medicine 08/23/24 documented as of this encounter
--- NOTE | 2024-12-18 12:15 | US_ITS ---
PROCEDURE: US OB BIOPHYSICAL PROFILE CLINICAL INDICATION: BPP for Gestational Diabetes COMPARISON: US US OB <= 14 WEEKS FETUS from 06/04/2024 US US OB BIOPHYSICAL PROFILE from 10/29/2024 US OB BIOPHYSICAL PROFILE from 11/14/2024 US OB BIOPHYSICAL PROFILE from 11/23/2024 US OB BIOPHYSICAL PROFILE from 12/07/2024 US OB BIOPHYSICAL PROFILE from 12/08/2024 US OB BIOPHYSICAL PROFILE from 12/10/2024 FINDINGS: Transabdominal sonographic images of the uterus were obtained. From her established due date she is 35weeks 5days. The following parameters are obtained: Viable Fetus in the cephalic presentation with a posterolateral placenta grade 2. Cervix measures 3.3 cm in length. Measurements: heart Rate = 144bpm Amniotic fluid index: 14.53cm, MVP 5.73 cm Qualitative AFV:2 Breathing movements: 2 Gross Body Movements: 2 Tone: 2 Biophysical profile score: 8 No obvious anomalies evident.Kidneys, three-vessel cord appear normal. IMPRESSION: 1. Viable fetus in the cephalic presentation with a posterolateral placenta grade 2. 2. The fluid is within normal limits with an amniotic fluid index 14.53 cm, MVP 5.73 cm. 3. Biophysical profile is 8/8 with good breathing movement and movement seen. 4. Limited anatomical scan appears normal. Dictated by: Driss Rice MD 12/18/2024 17:44 Driss Rice MD in OV 12/18/2024 17:44
== END 2024-12-18 23:59 | disposition home or self-care (01) ==
LOC: RAD 11:50
PROVIDERS: PCP Family Medicine; Visit Provider Obstetrics & Gynecology
DX: O09.293 Supervision of pregnancy with other poor reproductive or obstetric history, third trimester (principal); O24.419 Gestational diabetes mellitus in pregnancy, unspecified control; O99.213 Obesity complicating pregnancy, third trimester; O36.63X0 Maternal care for excessive fetal growth, third trimester, not applicable or unspecified; E66.9 Obesity, unspecified; Z3A.35 35 weeks gestation of pregnancy
CPT/HCPCS: 76819

== ENCOUNTER 2024-12-20 14:57 | Inpatient (IN) | payer BC, SELFPAY ==
--- OUTSIDE RECORDS SUMMARY | 2024-10-25 13:26 | XMS_ITS | Encounter Summary ---
Author Organization [facility] Address [address] [place] [id number] Care Team Providers Care Scallop Raker Name Role Phone Loan Vick MD Primary Care Provider +1- [phone] Reason for Referral * Diagnostic Imaging (Routine) - Closed Specialty Diagnoses / Procedures Referred By Contac t Referred To Contact Radiology Diagnoses History of IUFD Procedures US [facility] Diagnostic [place] Shameka Chandler MD [address] [place] [address] Phone: tel: fax: Referral ID Status Reason Start Date Expiration Date Visits Re quested Visits Authorized Closed 10/02/2024 01/01/2026 1 1 Reason for Visit * Diagnostic Imaging (Routine) - Closed Specialty Diagnoses / Procedures Referred By Kennedy messina Referred To Contact Radiology Diagnoses History of IUFD Procedures US [facility] Diagnostic [place] Shameka Chandler MD [address] [address] Phone: tel: fax: Referral ID Status Reason Start Date Expiration Date Visits Re quested Visits Authorized Closed 10/02/2024 01/01/2026 1 1 Encounter Details Date Type Department Care Team (Late st Contact Info) Description 10/25/2024 1:26 PM EDT - 10/25/2024 11:59 PM EDT Hospital Encounter [facility] [address] [facility] [place] [id number] Shameka Chandler MD [address] [facility] [address] [place], [place] [id number] History of IUFD Discharge Disposition: Home or [...] Procedure Name Priority Date/Time Associated Diagnosis Comments [facility] Routine 10/25/2024 2:00 PM EDT History of IUFD documented in this encounter Results * [facility] (10/25/2024 2:00 PM EDT) Anatomical Region Laterality Modality Ultrasound 10/25/2024 1:37 PM EDT Narrative 10/25/2024 2:13 PM EDT PAT NAME: SANDEEP BRITO MED REC#: [id number] DA: [id number] PAT GEND: F PAT TYPE: O EXAM TED: [id number] REF PHYS HARINI MONTEZ Comparison Studies The [...] EFW (oz) 11 oz EFW by: Hadlock (WZS-NK-DM-FL) Extended Cav. septi pel. tr 5.8 mm Dipping Machine Operator 6.4 mm CM 6.6 mm 47% Nicolaides [...] Normal Heart / Thorax 3-vessel view: Normal 0-kczfgj-mvwjiwl view: normal Cord insertion: Normal Stomach: Appears [...] 1 week given size. Coding ======= Description: 74850-47 Follow Up Returner: RT Lashon Wolf , [facility] Physician: Deven Chinchilla MD, FACOG Electronically signed by: Deven Chinchilla MD, FACOG at: 14:13 Procedure Note Deven Chinchilla MD - 10/25/2024 PAT NAME: SANDEEP BRITO MED REC#: [id number] DA: [id number] PAT GEND: F PAT TYPE: O EXAM TED: [id number] REF PHYS MELIDA HARINI Comparison Studies The findings of this study are compared to the prior ultrasound studydated 09/27/24 Patient Status Outpatient Indication ======== 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 MO BMI 42. H/O seizures. Previous child with cerebralpalsy. Maternal Assessment Xytgku587 cm Height (ft)5 ft Height (in)1 in Snssze602 kg Weight (lb)221 lb BMI42.27 kg/m Method ======= Transabdominal ultrasound examination. View: Suboptimal view: limited byfetal position ========= Cummins . Number of fetuses: 1 Dating ====== Method of dating:based on stated ROHINI GA by prior xualgihtvk75 w + 0 d ROHINI by prior assessment:01/17/2025 Ultrasound examination on:10/25/2024 GA by U/S based upon:AC, BPD, Femur, HC GA by U/S30 w + 5 d ROIHNI by U/S:12/29/2024 Previous dating:based on stated ROHINI, selected on 09/27/2024 Agreed ROHINI of previous datin01/17/2025 Assigned:based on stated ROHINI, selected on 10/25/2024 Assigned GA28 w + 0 d Assigned ROHINI:01/17/2025 ainetn735 d Biometry Standard BPD74.8 mm 30w 0d 92% Hadlock DVZ918.5 mm 32w 6d >99% Sindy HC280.1 mm 30w 5d 92% Hadlock Cerebellum tr34.6 mm 29w 0d 79% Hill AC278.9 mm 32w 0d >99% Hadlock Femur57.0 mm 29w 6d 86% Hadlock Gooycmk17.4 mm 29w 0d 72% Sindy HC / AC1.00 EFW1,686 g 30w 5d >99% Hadlock EFW (lb)3 lb EFW (oz)11 oz EFW by:Hadlock (FTN-JD-LF-FL) Extended Cav. septi pel. tr5.8 mm Vp6.4 mm CM6.6 mm 47% Nicolaides Head / Face / Neck Cephalic index0.74 6% Nicolaides Extremities / Bony Struc FL / BPD0.76 FL / HC0.20 FL / AC0.20 Other Structures XKR192 bpm General Evaluation Cardiac activity present. FHR [...] LVOT view:Normal Heart / Thorax 3-vessel view:Normal 0-walcpi-ekhkduo view:normal Cord insertion:Normal Stomach:Appears normal Kidneys:Appears normal [...] x 1 week given size. Coding ======= Description:84319-38 Follow Up Returner: RT Lashon Wolf , RDMS Physician: Deven Chinchilla MD, ZULEMAOG Electronically signed by: Deven Chinchilla MD, ZULEMAOG at: 14:13 us Shameka Chandler MD IMG US ORDERABLES Final Result documented in this encounter Visit Diagnoses Diagnosis History of IUFD documented in this encounter Care Teams Scallop Raker Relationship Specialty Start Date End Date Loan Vick MD [address] [place] [address] PCP - General Family Medicine 08/23/24 documented as of this encounter
--- OUTSIDE RECORDS SUMMARY | 2024-10-25 14:45 | XMS_ITS | Encounter Summary ---
[facility] Address [address] [place] [id number] Care Team Providers Care Education Dean Name Role Phone Loan Vick MD Primary Care Provider +1- [phone] Reason for Referral * Diagnostic Imaging (Routine) - Authorized Specialty Diagnoses / Procedures Referred By Contact Referred To Contact Obstetrics and Gynecology Diagnoses History of IUFD Procedures [facility] Deven Chinchilla MD [address] [place] [address] Phone: tel: fax: [facility] MATERNAL MEDICINE [address] [facility] [address] [place] [address] Phone: tel: fax: Referral ID Status Reason Start Date Expiration Date V isits Requested Visits Authorized [id number] Authorized 10/25/2024 01/24/2026 2 2 Reason for Visit * Reason Comments hx 39 week IUFD; MO; hx seizures; prev. child with CP Encounter Details Date Type Department Care Team (Late Contact Info) Description 10/25/2024 2:45 PM EDT Office Visit [facility] MATERNAL MEDICINE [address] [facility] [address] [place] [phone] Deven Chinchilla MD [address] [place] [address] History of IUFD (Primary Dx) Social History [...] to take to her appointment with primary FAMILY LAW ATTORNEY next week. Patient reports history of decreasedfetal movement for the past day or so though has felt some movement. movement noted on ultrasound today. We discussed careful return precautions regarding decreased movement and to reportto primary FAMILY LAW ATTORNEY if decreased movement has occurred. Follow Up [...] [facility]. Deven Chinchilla MD, FACOG Maternal Medicine, [facility] * Deven Chinchilla MD - [...] to take to her appointment with primary FAMILY LAW ATTORNEY next week. Patient reports history of decreasedfetal movement for the past day or so though has felt some movement. movement noted on ultrasound today. We discussed careful return precautions regarding decreased movement and to reportto primary FAMILY LAW ATTORNEY if decreased movement has occurred. documented in this encounter Plan of Treatment Scheduled Orders Name Type Priority Associated Diagnoses Orde r Schedule [facility] Imaging Routine History of IUFD Every 4 Weeks for 2 Occurrences starting 10/25/2024 until 10/25/2025, 1 completed documented as of this encounter Results * [facility] (11/28/2024 2:55 PM EDT) Anatomical Region Laterality Modality Ultrasound 11/28/2024 2:31 PM EDT Narrative 11/28/2024 3:06 PM EDT PAT NAME: SANDEEP BRITO MED REC#: [id number] DA: [id number] PAT GEND: F PAT TYPE: O EXAM TED: [id number] REF PHYS HARINI GILBERT Comparison Studies The [...] EFW (oz) 15 oz EFW by: Hadlock (MSS-RA-RB-FL) Extended Cav. septi pel. tr 5.7 mm Market Gardener 6.3 mm CM 5.7 mm 10% Nicolaides [...] 4 weeks before IOL. Coding ======= Description: 55432-89 Follow Up Ultrasound Description: 83044-67 BPP without NST Head Of Talent Management: Kristine Camp RDMS Physician: Deven Chinchilla MD, FACOG Electronically signed by: Deven Chinchilla MD, FACOG at: 15:06 Procedure Note Deven Chinchilla MD - 11/28/2024 PAT NAME: SANDEEP BRITO MED REC#: [id number] DA: 2000 PAT GEND: F PAT TYPE: O EXAM TED: [id number] REF PHYS HARINI GILBERT Comparison Studies The findings of this study are compared to the prior ultrasound studydated 10/25/24 Patient Status Outpatient Indication ======== Gestational diabetes. 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 Previous child with cerebral palsy.Hx seizures. Morbid obesity BMI 43. Maternal Assessment Pfkdhe519 cm Height (ft)5 ft Height (in)1 in Fsqtgb711 kg Weight (lb)223 lb BMI42.65 kg/m Method ======= Transabdominal ultrasound examination. View: Adequate view ========= Cummins . Number of fetuses: 1 Dating ====== Method of dating:based on stated ROHINI GA by prior qmgelwsxqy70 w + 6 d ROHINI by prior assessment:01/17/2025 Ultrasound examination on:11/28/2024 GA by U/S based upon:AC, BPD, Femur, HC GA by U/S35 w + 3 d ROHINI by U/S:12/30/2024 Previous dating:based on stated ROHINI, selected on 10/25/2024 Agreed ROHINI of previous datin01/17/2025 Assigned:based on stated ROHINI, selected on 11/28/2024 Assigned GA32 w + 6 d Assigned ROHINI:01/17/2025 ghksux402 d Biometry Standard BPD88.3 mm 35w 5d 98% Hadlock PFA527.5 mm 38w 2d >99% Isndy HC322.8 mm 36w 3d 94% Hadlock Cerebellum tr43.7 mm 34w 0d 65% Hill AC322.9 mm 36w 1d >99% Hadlock Femur64.7 mm 33w 3d 53% Hadlock Yihzjvh20.8 mm 32w 3d 49% Sindy HC / AC1.00 EFW2,683 g 35w 3d 97% Hadlock EFW (lb)5 lb EFW (oz)15 oz EFW by:Hadlock (GTQ-AE-XW-FL) Extended Cav. septi pel. tr5.7 mm Vp6.3 mm CM5.7 mm 10% Nicolaides Head / Face / Neck Cephalic index0.78 33% Nicolaides Extremities / Bony Struc FL / BPD0.73 FL / HC0.20 FL / AC0.20 Other Structures BOQ297 bpm General Evaluation Cardiac activity present. FHR [...] in 4 weeks before IOL. Coding ======= Description:48179-27 Follow Up Ultrasound Description:74598-97 BPP without NST Head Of Talent Management: Kristine Camp RDGA Physician: Deven Chinchilla MD, FACOG Electronically signed by: Deven Chinchilla MD, FACOG at: 15:06 us Deven Chinchilla MD IMG US ORDERABLES Final Result documented in this encounter Visit Diagnoses Diagnosis History of IUFD- Primary documented in this encounter Care Teams Education Dean Relationship Specialty Start Date End Date Loan Vick MD [address] [place] [address] PCP - General Family Medicine 08/23/24 documented as of this encounter
--- OUTSIDE RECORDS SUMMARY | 2024-11-28 13:50 | XMS_ITS | Encounter Summary ---
[facility] Address [address] [place] [id number] Care Team Providers Care Marketing Copywriter Name Role Phone Loan Vick MD Primary Care Provider +1- [phone] Reason for Visit * Diagnostic Imaging (Routine) - Authorized Specialty Diagnoses / Procedures Referred By Contact Referred To Contact Obstetrics and Gynecology Diagnoses History of IUFD Procedures US On [facility] Chinchilla, Deven Morrissey MD [address] [facility] [address] [place] [address] Phone: tel: fax: [facility] MAT[facility] MEDIC[facility] [address] [facility] [address] [place] [address] Phone: tel: fax: Referral ID Status Reason Start Date Expiration Date V isits Requested Visits Authorized [id number] Authorized 10/25/2024 01/24/2026 2 2 Encounter Details Date Type Department Care Team (Latest Contact Info) Description 11/28/2024 1:50 PM EDT - 11/28/2024 11:59 PM EDT Hospital Encounter [facility] US PER DIAG CTR [address] [place] [address] Harini Gilbert, DO [address] [place] [facility] [address] [place], [place] [address] Discharge Disposition: Home or Self Care Social [...] Priority Date/Time Associated Diagnosis Comments [facility] Routine 11/28/2024 2:55 PM EDT History of IUFD documented in this encounter Results * [facility] (11/28/2024 2:55 PM EDT) Anatomical Region Laterality Modality Ultrasound 11/28/2024 2:31 PM EDT Narrative 11/28/2024 3:06 PM EDT PAT NAME: SANDEEP BRITO MED REC#: [id number] DA: [id number] PAT GEND: F PAT TYPE: O EXAM TED: [id number] REF PHYS HARINI GILBERT Comparison Studies The [...] EFW (oz) 15 oz EFW by: Hadlock (GGZ-AN-BX-FL) Extended Cav. septi pel. tr 5.7 mm Rice Farmworker 6.3 mm CM 5.7 mm 10% Nicolaides [...] 4 weeks before IOL. Coding ======= Description: 12621-80 Follow Up Ultrasound Description: 17767-02 BPP without NST Binding Cementer French Cord: Kristine Camp RDMS Physician: Deven Chinchilla MD, FACOG Electronically signed by: Deven Chinchilla MD, FACOG at: 15:06 Procedure Note Deven Chinchilla MD - 11/28/2024 PAT NAME: SANDEEP BRITO MED REC#: [id number] DA: [id number] PAT GEND: F PAT TYPE: O EXAM TED: [id number] REF PHYS HARINI GILBERT Comparison Studies The findings of this study are compared to the prior ultrasound studydated 10/25/24 Patient Status Outpatient Indication ======== Gestational diabetes. 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 Previous child with cerebral palsy.Hx seizures. Morbid obesity BMI 43. Maternal Assessment Sewsqy782 cm Height (ft)5 ft Height (in)1 in Dvroel602 kg Weight (lb)223 lb BMI42.65 kg/m Method ======= Transabdominal ultrasound examination. View: Adequate view ========= Cummins . Number of fetuses: 1 Dating ====== Method of dating:based on stated ROHINI GA by prior ybutqwarix07 w + 6 d ROHINI by prior [...] Standard BPD88.3 mm 35w 5d 98% Hadlock NJF722.5 mm 38w 2d >99% Sindy HC322.8 mm 36w 3d 94% Hadlock Cerebellum tr43.7 mm 34w 0d 65% Hill AC322.9 mm 36w 1d >99% Hadlock Femur64.7 mm 33w 3d 53% Hadlock Xjyzaus73.8 mm 32w 3d 49% Sindy HC / AC1.00 EFW2,683 g 35w 3d 97% Hadlock EFW (lb)5 lb EFW (oz)15 oz EFW by:Hadlock (COU-BT-XX-FL) Extended Cav. septi pel. tr5.7 mm Vp6.3 mm CM5.7 mm 10% Nicolaides Head / Face / Neck Cephalic index0.78 33% Nicolaides Extremities / Bony Struc FL / BPD0.73 FL / HC0.20 FL / AC0.20 Other Structures JNK657 bpm General Evaluation Cardiac activity present. FHR [...] in 4 weeks before IOL. Coding ======= Description:33744-15 Follow Up Ultrasound Description:80703-19 BPP without NST Binding Cementer French Cord: Kristine aCmp RDCA Physician: Deven Chinchilla MD, FACOG Electronically signed by: Deven Chinchilla MD, FACOG at: 15:06 us Deven Chinchilla MD IMG US ORDERABLES Final Result documented in this encounter Visit Diagnoses Not on filedocumented in this encounter Care Teams Marketing Copywriter Relationship Specialty Start Date End Date Loan Vick MD [address] [place] [address] PCP - General Family Medicine 08/23/24 documented as of this encounter
--- OUTSIDE RECORDS SUMMARY | 2024-11-28 14:45 | XMS_ITS | Encounter Summary ---
[facility] Address [address] [place] [address] Care Team Providers Care Electric Transfer Operator Name Role Phone Loan Vick MD Primary Care Provider +1- [phone] Reason for Visit * Reason Comments hx 39 wk IUFD, MO, LGA, prev child CP, h x seizures Encounter Details Date Type Department Care Team (Late st Contact Info) Description 11/28/2024 2:45 PM EDT Office Visit [facility] MATERNAL MEDICINE [address] [facility] [address] [place] [address] Deven Chinchilla MD [address] [facility] [address] [place] [address] History of IUFD (Primary Dx); Insulin controlled [...] CVS. Deven Chinchilla MD, FACOG Maternal Medicine, [facility] documented in this encounter Plan of Treatment Not on file documented as of this encounter Visit Diagnoses Diagnosis History of IUFD- Primary Insulin controlled gestational diabetes mellitus (GDM) in third trimester documented in this encounter Care Teams Electric Transfer Operator Relationship Specialty Start Date End Date Loan Vick MD [address] [place] [address] PCP - General Family Medicine 08/23/24 documented as of this encounter
[2024-12-20 08:41] VITALS: BMI 41.5
--- OUTSIDE RECORDS SUMMARY | 2024-12-20 08:42 | XMS_ITS | Clinical Summary ---
Author Organization [facility] Address [address] [address] Phone Care Team Providers Care Driller Operator Name Role Phone Unavailable Unavailable Conditions or Problems No information available. Medications No information available. Medications Administered No information available. Allergies, Adverse Reactions, Alerts No information available. Results No information available. Plan of Care No information available. Procedures Code Procedure Name Date Entry Date CPT-21365 COVID-19 Moderna CPT-0012A IZ administration - COVID-19 - Moderna 2n d dose CPT-38621 COVID-19 Moderna CPT-14707 IZ administration - injection - single 20 [...]
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
--- OUTSIDE RECORDS SUMMARY | 2024-12-20 08:43 | XMS_ITS | Encounter Summary ---
Author Organization [place] [address] Care Team Providers Care Flume Worker Name Role Phone Loan Vick MD Primary Care Provider +1- [phone] Encounter Details Date Type Department Care Team (Late st Contact Info) Description 08/30/2024 Orders Only SE Physical Therapy [facility] [address] [facility] [place] [address] Raquel Torres, PT [address] [place] [address] Social History Tobacco Use Types [...] of Assessment Author No 06/14/2018 2:54 PM MAUYR Valente Do nna A, RMA * Does [...] of Assessment Author No 06/14/2018 2:54 PM MYAUR Valente nna A, RMA documented as of [...] on filedocumented in this encounter Care Teams Flume Worker Relationship Specialty Start Date End Date Loan Vick MD [address] [place] [address] PCP - General Family Medicine 03/23/16 documented as of this encounter
--- OUTSIDE RECORDS SUMMARY | 2024-12-20 08:43 | XMS_ITS | Clinical Summary ---
Author Organization 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 Deven Chinchilla via phone who reminded that cholesterol is essential in and that high cholesterol for short time typically does not warrant treatment. I do agree but feel that treatment is warranted for her [facility] as her cholesterol has been significantly [...] Department Care Team Description 11/30/2024 Refill SEP [facility] [address] [place] [address] Loan Vick MD Medication Refill 09/19/2024 9:49 AM EDT - 09/19/2024 11:59 PM EDT Hospital Encounter [facility] Physical Therapy [address] [place] [address] Raquel Torres, PT Discharge Disposition: Home or [...] (DALK) ; Surgeon: Armando Monreal MD; Location: [facility]; Service: Ophthalmology Medical devices from this surgery are in the Medical Devices section. 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 COLONOSCOPY 08/07/2015 N/A COLONOSCOPY and ESOPHAGOGASTRODUODENOSCOPY with biopsy; Surgeon: Jamey Schwab MD; Location: [facility] ENDOSCOPY; Service: Endoscopy UPPER GASTROINTESTINAL ENDOSCOPY 08/07/2015 N/A Surgeon: Jamey Schwab MD; Location: [facility] ENDOSCOPY; Service: Endoscopy DENTAL SURGERY permanent retainer in mouth CATARACT REMOVAL 11/05/2015 Right RIGHT EYE CATARACT EXTRACTION WITH PHACOEMULSIFICATION AND INTRAOCULAR LENS WITH RIGHT EYE WOUND REVISION ; Surgeon: Armando Monreal MD; Location: [facility]; Service: Ophthalmology Medical devices from this surgery are in the Medical Devices section. EYE SURGERY 11/05/2015 Right Surgeon: Armando Monreal MD; Location: [facility]; Service: Ophthalmology Medical devices from this surgery are in the Medical Devices section. EYE SURGERY 02/24/2016 Right RIGHT EYE YAG LASER CAPSULOTOMY; Surgeon: Armando Monreal MD; Location: [facility]; Service: Ophthalmology DILATION AND CURETTAGE OF UTERUS 09/16/2021 - 10/15/2021 CT NEEDLE BIOPSY LIVER 02/07/2024 CT NEEDLE BIOPSY LIVER 02/07/2024 Eduardo Betancourt MD [facility] CT Medical History Medical History Date Comments [...] Cancer Screening 05/12/2023 Pap Smear 05/12/2023 05/12/2020 Annual Wellness Exam 04/08/2024 04/08/2023 COVID-19 Vaccine ( - season) 2024 05/27/2020, 04/29/2020 Influenza Vaccine (#1) 2024 3, 04/08/2022, 12/18/2019, [...] Cook RMA Medical Devices Implanted Type Area Contract Agent Device Identifier Shelf Expiration Date Model / Serial / Lot Cornea Tissue - [id number] Implanted:Qty: 1 on 03/27/2014 by Armando Monreal MD at [facility] Right: Eye UNKNOWN 04/01/2014 [id number] / [id number] / Lens Intraocular Preloaded 19.0 Diopter - [id number] Implanted:Qty: 1 on 11/05/2015 by Armando Monreal MD at [facility] Right: Eye EL LAB:SURG 03/17/2018 [id number] / [id number] / Procedures Procedure Name Priority Date/Time Associated Diagnosis Comments SCANNED LABS 11/24/2024 12:59 PM EDT SCANNED LABS 11/06/2024 11:04 PM EDT SCANNED LABS 10/24/2024 5:33 PM EDT GC CHLAMYDIA THIN PREP Routine 05/12/2020 11:00 AM EST Well adult exam [facility] CYTOLOGY REQUEST (PAP ONLY) Routine 05/12/2020 11:00 AM EST Well adult exam from Last 3 Months or Most Recently Relevant to Health Maintenance Results * SCANNED LABS (11/24/2024 12:59 PM EDT) Only the most recent of3 resultswithin the time period is included. 11/24/2024 12:5 9 PM EDT us Unknown Provider HEMATOLOGY ORDERABLES Final Res ult * [facility] CYTOLOGY REQUEST (PAP ONLY) (05/12/2020 11:00 AM EST) CASE REPORT Gynecologic Cytology Report Case: [id number] Authorizing Provider: Loan Vick MD Collected: 05/12/2020 1100 Ordering Location: [facility] Received: 05/12/2020 1100 First Screen: Leesa Jose CT Specimen: LIQUID-BASED PAP - CERVICAL/ENDOCERV ICAL, Cervix, Endocervical 05/14/2020 10:48 AM EST [facility] PAP FINAL DIAGNOSIS Negative for intraepithelial lesion or malignancy 05/14/2020 10:48 AM [facility] at 1048 EST MICROSCOPIC DESCRIPTION Microscopic examination is performed and the findings corroborate the diagnosis 05/14/2020 10:48 AM EST [facility] PAP SMEAR ADEQUACY Satisfactory for evaluation 05/14/2020 10:48 AM EST [facility] ENDOCERVICAL T-ZONE Transformation zone absent. 05/14/2020 10:48 AM EST [facility] EMBEDDED IMAGES 10:48 AM EST [facility] PAP DISCLAIMER The Pap Smear is a screening test that aids in the detection of cervical cancer and cancer precursors. Both false positive and false negative results can occur. The test should be used at regular intervals, and positive results should be confirmed before definitive therapy. Processed using the ThinPrep Supervisor [employer] Automated cytology screening device (Big Screen Tools). 05/14/2020 10:48 AM EST [facility] Thin Prep ENDOCERVICAL STRUCTURE / Unknown 05/12/2020 11:00 AM EST 05/12/2020 11:00 AM EST us Loan Vick MD CYTOLOGY ORDERABLES Final Result [facility] [address] [place] [address] * GC CHLAMYDIA THIN PREP (05/12/2020 11:00 AM EST) Chlamydia trachomatis Not Detected Not Detected 05/13/2020 5:39 PM EST PREFERRED [employer], [facility] Neisseria gonorrhoeae Not Detected Not Detected 05/13/2020 5:39 PM EST [facility] Actively Learn [facility] Thin Prep SPECIMEN FROM UTERINE CERVIX / Unknown 05/12/2020 11:00 AM EST 05/12/2020 11:00 AM EST Narrative PREFERRED [employer], [facility] - 05/13/2020 5:39 PM EST Testing methodology is child adolescent care mediated amplification (TMA) using the AptiTherX Combo 2 assay from [employer]. A negative result does not completely rule [...] MICROBIOLOGY - GENERAL ORD ERABLES Final Result [facility] Actively Learn [facility] [address] [facility] , [address] [place], [place] [id number] from Last 3 Months or Most Recently Relevant to Health Maintenance Insurance [employer] PPO Care Teams Hand Trimmer Relationship Specialty Start Date End Date Loan Vick MD [address] [place] [phone] PCP - General Family Medicine 03/23/16
--- OUTSIDE RECORDS SUMMARY | 2024-12-20 08:43 | XMS_ITS | Encounter Summary ---
Author Organization [place] Address [address] [facility] [place] [address] Care Team Providers Care Sales Account Director Name Role Phone Loan Vick MD Primary Care Provider +1- [phone] Encounter Details Date Type Department Care Team (Latest Contact Info) Description 01/25/2017 Lab Requisition [facility] [address] [place] [id number] Claudia Granado, KJ Encounter for screening for [...] Detected Not Detected 01/26/2017 11:41 AM EDT [facility] Neisseria gonorrhoeae Not Detected Not Detected 01/26/2017 11:41 AM EDT [facility] Swab (specimen) 01/25/2017 1 0:19 AM EDT 01/25/2017 5:18 PM EDT Narrative [facility] - 01/26/2017 11:41 AM EDT Testing methodology is production generalist mediated amplification (TMA) using the Aptima Combo 2 assay from [employer] [facility]. A negative result does not completely rule [...] characteristics of this test were validated by [facility] laboratory. This assay is FDA cleared to test the following specimens: clinician-collected endocervical, vaginal and male urethral swab specimens, patient collected vaginal specimens within a clinic setting, Thin Prep Specimens in PreservCyt Solution, and first-stream, unpreserved male urine specimens. Testing on female urine is not FDA approved by this methodology, but has been developed and validated by the [facility] laboratory. Detailed methodology is available upon request. Claudia Granado APRN MICROBIOLOGY - GENERAL ORD ERABLES Final Result [facility] [address] [place] [address] documented in this encounter Visit Diagnoses Diagnosis [...] documented as of this encounter Care Teams Sales Account Director Relationship Specialty Start Date End Date Loan Vick MD [address] [place] [address] PCP - General Family Medicine 03/23/16 documented as of this encounter
--- OUTSIDE RECORDS SUMMARY | 2024-12-20 08:43 | XMS_ITS | Encounter Summary ---
Author Organization [place] [address] Care Team Providers Care Dry Finisher Name Role Phone Loan Vick MD Primary Care Provider +1- [phone] Reason for Visit * Reason Comments Medication Refill Encounter Details Date Type Department Care Team (Late st Contact Info) Description 11/30/2024 Refill SEP [facility] [address] [facility] [address] Loan Vick MD [address] [place] [address] Medication Refill Social History Tobacco [...] and sent to requesting pharmacy. Routed to [facility] if an appointment is needed. documented [...] documented as of this encounter Care Teams Dry Finisher Relationship Specialty Start Date End Date Loan Vick MD [address] [place] [address] PCP - General Family Medicine 03/23/16 documented as of this encounter
[2024-12-20 08:44] LABS: Microscopic, Urine URINE MICROSCOPIC (MICROSCOPIC)
[2024-12-20 08:50] LABS: Bilirubin,Urine Negative (Negative); Color,Urine YELLOW (Yellow); Glucose,Urine (UA) Negative (Negative); Ketones,Urine Negative (Negative); Leukocyte Esterase,Urine 2+ (Negative); PH,Urine 6.5 (5.0-8.5); Protein,Urine Negative (Negative); Specific Gravity, Urine 1.015 (1.005-1.030); Urobilinogen,Urine 0.2 EU/dl (0.2)
[2024-12-20 09:04] LABS: Bacteria,Urine 3+ /lpf
[2024-12-20 09:05] VITALS: BP 106/68; PULSE 88; RESP 16; TEMP 37.1; O2SAT 96; BMI 41.5
--- NOTE | 2024-12-20 13:08 | US_ITS ---
PROCEDURE INFORMATION: Exam: US Biophysical Profile Without Non-Stress Test Exam date and time: 12/20/2024 1:26 PM Age: 24 years old Clinical indication: Other: HX of stillbirth, contractions; ; Additional info: History of full term stillbirth TECHNIQUE: Imaging protocol: US biophysical profile without non-stress testing. COMPARISON: US OB BIOPHYSICAL PROFILE 12/18/2024 12:05 PM FINDINGS: heart rate: 146 bpm Amniotic fluid index: KALEIGH is 16.6 cm. BIOPHYSICAL PROFILE: breathing (BPP): 2 /2 gross body movement (BPP): 2 /2 tone (BPP): 2 /2 Amniotic fluid (BPP): 2 /2 Biophysical profile score (BPP): 8 /8 MATERNAL ANATOMY: Cervix: Cervical length measures 2.51 cm. IMPRESSION: Biophysical profile score is 8 out of 8.
[2024-12-20 13:09] LABS: POC Glucose,Bedside 77 gm/dL (70-110)
[2024-12-20 20:40] VITALS: BP 114/66; PULSE 68; RESP 18; TEMP 37.1
[2024-12-21 03:29] VITALS: BP 114/62; PULSE 71; RESP 16; TEMP 37.1
[2024-12-21] MEDS: ACETAMINOPHEN 500MG TAB 1000 MG PO (03:32)
[2024-12-21] MEDS: LACTATED RINGERS 1000ML 1,000 ML 999 ML IV (06:31)
--- NOTE | 2024-12-21 07:00 | US_ITS ---
PROCEDURE: US OB BIOPHYSICAL PROFILE CLINICAL INDICATION: History of Full term still COMPARISON: US US OB <= 14 WEEKS FETUS from 06/04/2024 US US OB BIOPHYSICAL PROFILE from 10/29/2024 US OB BIOPHYSICAL PROFILE from 11/14/2024 US OB BIOPHYSICAL PROFILE from 11/23/2024 US OB BIOPHYSICAL PROFILE from 12/07/2024 US OB BIOPHYSICAL PROFILE from 12/08/2024 US OB BIOPHYSICAL PROFILE from 12/10/2024 US OB BIOPHYSICAL PROFILE from 12/18/2024 US OB BIOPHYSICAL PROFILE from 12/20/2024 FINDINGS: Transabdominal sonographic images of the uterus were obtained. From her established due date she is 36weeks 1day. The following parameters are obtained: Viable Fetus in the cephalic presentation with a posterior placenta grade 2. Average ultrasound age is 37weeks 0 days Estimated weight 2,958g, 6 lb 8 oz Cervix measures 2.9 cm Measurements: heart Rate = 124bpm BPD = 38weeks 1day, 96 percentile HC = 37weeks 5days, 59 percentile AC = 36weeks 4days, 70 percentile FL = 35weeks 3days, 27 percentile HC/AC is 1.02 FL/BPD is 0.74 FL/AC is 0.21 62 percentile Amniotic fluid index: 10.66cm, MVP 7.73 cm Qualitative AFV:2 Breathing movements: 2 Gross Body Movements: 2 Tone: 2 Biophysical profile score: 8 No obvious anomalies evident.Kidneys, stomach, bladder, four-chamber heart, three-vessel cord appear normal. IMPRESSION: 1. Viable fetus in the cephalic presentation with a posterior placenta grade 2. 2. The fluid is within normal limits with an amniotic fluid index 10.66 cm, MVP 7.73 cm. 3. Biophysical profile is 8/8 with good breathing and movement seen. 4. There has been good interval growth with the fetus currently 62nd percentile. 5. Limited anatomical scan appears normal. Dictated by: Driss Rice MD 12/22/2024 07:04 Driss Rice MD in OV 12/22/2024 07:04
[2024-12-21 08:30] VITALS: BP 113/59; PULSE 82; RESP 17; TEMP 36.9; O2SAT 99
--- NOTE | 2024-12-21 14:03 | EXP.HP ---
History of Present Illness *Admission Date: 12/20/24 *Reason for visit:: contractions *History of present illness: Pili Kyle is a pleasant 24yo who presented to L&D with regular painful contractions every 2-3 minutes. She reported some decreased movement and changes in movement. She was admitted and observed. Regular uterine contractions continued. The patient has very high and intrapartum anxiety. In August 2023 just over a year ago she presented to labor and delivery with decreased movement and 2 days later when she returned for her induction of labor she had a stillbirth. The patient reports that prior to her stillbirth she had these regular and irregular contractions similar to what she is experiencing now. She also was having pitting edema in her abdomen which she has again with this . She has a planned delivery for next week at 37 weeks gestation. This has also been complicated by gestational diabetes and maternal obesity. [facility] Disclaimer: The information contained in this section may have been updated after the patient was seen, as this information can be updated by other users. Medical History Normal delivery at term History of stillbirth Maternal obesity affecting , antepartum 34 weeks gestation of Hematuria Rectal or anal pain Retained products of conception, endometritis fever Endometritis hypertension anemia Renal colic Viral illness Asthmatic bronchitis Cornea transplant recipient Cataract Surgical History Hx of dilation and curettage Family History Sister Lupus Father Diabetes Grandmother Cancer Social History (Updated 12/20/24 @ 20:26 by Merced Guthrie RN) Smoking Status: Never smoker alcohol intake: never substance use type: denies use current occupational status: employed and other Travel in the last 8 weeks?: None household members: spouse housing: house caffeine: No Have you lived/traveled outside US in past 30 days?: No Contact w/someone who lives/traveled outside US past 30 days?: No Exposure to someone with infectious disease in past 14 days?: No Do you have a fever (greater than 100.4 F or 38 C)?: No Have you tested positive for COVID-19?: No Exposed to someone with COVID-19 in past 14 days?: No Do you have a sore throat?: No Do you have a cough?: No Do you have any weakness?: No Are you experiencing any nausea/vomitting?: No Do you have any diarrhea?: No Are you experiencing any unusual bleeding?: No Do you have any muscle aches/pain?: No Do you have any abdominal pain?: Yes Are you experiencing loss of taste or smell?: No Other Medical History Have you received the Flu Vaccine for this season: No Have you received the Pneumonia Vaccine: No Review of Systems Review of Systems Review of systems (narrative): Review of Systems Constitutional: Denies fever, chills, and sweats Eyes: Denies vision change/ pain Respiratory: Denies cough and shortness of breath Cardiovascular: Denies chest pain and lightheadedness Gastrointestinal: Admits abdominal pain with contractions. Denies nausea, vomiting. Genitourinary: Denies dysuria and incontinence Musculoskeletal: Denies shoulder pain and back pain Neurological: Denies change in speech or headaches Meds Home Medications and Allergies Home Medications ?Medication ?Instructions ?Recorded ?Confirmed ?Type desvenlafaxine succinate 100 mg 100 mg PO DAILY 04/05/24 12/20/24 History tablet,extended release 24 hr vits no.126-ferrous fum 1 tab PO DAILY 05/25/24 12/20/24 History 28 mg iron-folic acid 800 mcg tablet (Classic ) aspirin 81 mg tablet 81 mg PO DAILY 10/09/24 12/20/24 History blood sugar diagnostic (Accu-Chek #10 ea 11/01/24 12/17/24 History Guide test strips) blood-glucose meter (Accu-Chek #1 ea 11/01/24 12/17/24 History Guide Me Glucose Meter) insulin glargine 100 unit/mL (3 5 unit (0.05 mL) SQ HS #15 mL 11/01/24 12/20/24 Rx mL) subcutaneous pen (Lantus Solostar U-100 Insulin) pen needle, diabetic 31 gauge x #100 ea 12/13/24 12/17/24 Rx 1/4 insulin lispro 100 unit/mL 5 unit (0.05 mL) SQ QACDINNER #3 mL 12/14/24 12/20/24 Rx subcutaneous pen (Admelog SoloStar U-100 Insulin lispro) New Prescriptions to Start Prescriptions: Allergies Allergy/AdvReac Type Severity Reaction Status Date / Time amitriptyline (From Elavil) Allergy Severe Seizure Verified 12/21/24 06:25 raspberry Allergy Severe Anaphylaxis Verified 12/21/24 06:25 Penicillins Allergy Rash Verified 12/21/24 06:25 Exam Data for Last 24 hours Vital signs and Labs for Last 24 Hours: Temp Pulse Resp BP Pulse Ox O2 Del Method 98.4 F 82 17 113/59 L 99 Room Air 12/21/24 08:30 12/21/24 08:30 12/21/24 08:30 12/21/24 08:30 12/21/24 08:30 12/21/24 08:30 I & O for Last 24 hours: Intake & Output 12/18/24 12/19/24 12/20/24 12/21/24 23:59 23:59 23:59 23:59 Intake Total 1000 / 1000 Balance 1000 / 1000 Weight 227 lb Narrative: General: patient is alert oriented in no acute distress and responds appropriately to questions. HEENT: NCAT, EOMI, moist mucous membranes, neck supple with full ROM Cardiovascular: RRR +S1/S2, no murmurs or rubs Pulmonary: Clear to auscultation bilaterally, nonlabored breathing, symmetric chest rise Abdominal: Gravid abdomen appropriate for gestation. No guarding, rebound, or tenderness noted. Pitting edema and tenderness noted throughout her pannus SVE: 4/60/-3 Extremities: trace edema, no tenderness or cyanosis noted Skin: Normal turgor, intact, warm. Negative for erythema, pallor, petechia, or lesions Neurologic: Negative for sensory or motor deficit Psychiatric: Normal affect, normal thought process, good judgment and insight, no depression or anxious mood appreciated. *Routine HEENT Exam Head: Present normocephalic and atraumatic Eye: Present EOMI, PERRL and normal accommodation; Absent conjunctival icterus, scleral injection, nystagmus or exophthalmos ENT: Present mucous membranes moist *Routine Respiratory Exam Respiratory: Present CTA bilaterally, normal respiratory effort, able to speak in complete sentences and symmetric chest movement; Absent accessory muscle use, decreased breath sounds, rales, respiratory distress, wheezes, distant breath sounds or diminished air movement *Routine Cardiovascular Exam Cardiovascular: Present RRR, Normal S1 and Normal S2; Absent murmur or gallop *Routine Abdominal Exam Abdominal: Present soft and normoactive bowel sounds; Absent tenderness, distended, rebound or guarding *Routine Rectal Exam Rectal:: deferred *Routine Genitalia Exam Genitalia:: normal female Assessment and Plan *Assessment and plan (1) History of stillbirth: Status: Acute Category: Medical Code(s): Z87.59 - Personal history of other complications of , childbirth and the puerperium (2) Maternal obesity affecting , antepartum: Status: Acute Qualifiers: Obesity type affecting : unspecified obesity Qualified Code(s): O99.210 - Obesity complicating , unspecified trimester Category: Medical Code(s): O99.210 - Obesity complicating , unspecified trimester (3) Gestational diabetes: Status: Acute Qualifiers: Gestational diabetes mellitus control: insulin-controlled Trimester: third trimester Qualified Code(s): O24.414 - Gestational diabetes mellitus in , insulin controlled Category: Medical Code(s): O24.419 - Gestational diabetes mellitus in , unspecified control (4) Stillbirth with antepartum : Status: Acute Category: Medical Code(s): Z37.1 - Single stillbirth (5) Large for gestational age fetus affecting management of mother, antepartum: Status: Acute Qualifiers: Fetus number: single or unspecified fetus Qualified Code(s): O36.60X0 - Maternal care for excessive growth, unspecified trimester, not applicable or unspecified Category: Medical Code(s): O36.60X0 - Maternal care for excessive growth, unspecified trimester, not applicable or unspecified Plan This patient requires inpatient hospital admission so that we can evaluate the on a regularly scheduled basis the fetus will need NSTs every 6 hours as well as BPP's daily this will be in an attempt to get the to a full-term gestation of 37 weeks. We will have a low threshold to intervene and for delivery with any nonreassuring testing given her high risk for stillbirth based on her history, obesity, and gestational diabetes - The plan will be for delivery no later than 37 weeks gestation which is December 27, 2024 - She will need to keep a type and screen up-to-date every 72 hours - Will monitor movement very closely with low threshold to intervene for decreased movement BPP and growth ultrasound obtained today: Preliminary read shows EFW of 2958 g, 6 pounds 8 ounces, 62nd percentile. BPD: 96%, HC: 59%, AC: 70%, FL: 27%. BPP: 8/8. MVP: 3.73 cm. Cervical length: 2.9 cm. Cephalic presentation. Posterior grade 2 placenta.
[2024-12-21] MEDS: LORATADINE 10MG TABLET 10 MG PO (14:04)
--- OUTSIDE RECORDS SUMMARY | 2024-12-21 15:03 | XMS_ITS | Clinical Summary ---
Author Organization [facility] Address [address] [address] Phone Care Team Providers Care Financial Reserve Clerk Name Role Phone Unavailable Unavailable Conditions or Problems No information available. Medications No information available. Medications Administered No information available. Allergies, Adverse Reactions, Alerts No information available. Results No information available. Plan of Care No information available. Procedures Code Procedure Name Date Entry Date CPT-22445 COVID-19 Moderna CPT-0012A IZ administration - COVID-19 - Moderna 2n d dose CPT-72646 COVID-19 Moderna CPT-76072 IZ administration - injection - single 20 [...]
--- OUTSIDE RECORDS SUMMARY | 2024-12-21 15:03 | XMS_ITS | Clinical Summary ---
Author Organization [facility] Address [address] [place] [address] Care Team Providers Care Client Business Manager Name Role Phone Loan Vick MD Primary Care Provider +1- [phone] Allergies Active Allergy Reactions Criticality Noted Date [...] to take to her appointment with primary GAS OPERATOR next week. Patient reports history of decreased movement for the past day or so though has felt some movement. movement noted on ultrasound today. We discussed careful return precautions regarding decreased movement and to report to primary GAS OPERATOR if decreased movement has occurred. Assessment [...] Description 11/28/2024 2:45 PM EDT Office Visit [facility] [address] [facility] [address] [place] [id number] Deven Chinchilla MD History of IUFD (Primary Dx); Insulin controlled gestational diabetes mellitus (GDM) in third trimester 11/28/2024 1:50 PM EDT - 11/28/2024 11:59 PM EDT Hospital Encounter [facility] [address] [place] [address] Harini Gilbert DO Discharge Disposition: Home or Self Care 11/28/2024 Travel 11/26/2024 Medication Therapy Management [facility] [address] [facility] [address] [place] [phone] Deven Chinchilla MD 11/23/2024 Refill [facility] [address] [facility] [address] [place] [phone] Deven Chinchilla MD 10/25/2024 2:45 PM EDT Office Visit [facility] [address] [phone] Deven Chinchilla MD History of IUFD (Primary Dx) 10/25/2024 1:26 PM EDT - 10/25/2024 11:59 PM EDT Hospital Encounter [facility] [address] [place] [address] Shameka Chandler MD History of IUFD Discharge Disposition: Home or Self Care 10/25/2024 Travel 09/27/2024 3:15 PM EDT Office Visit [facility] [address] [address] Shameka Chandler MD History of IUFD (Primary Dx) 09/27/2024 2:40 PM EDT - 09/27/2024 11:59 PM EDT Hospital Encounter [facility] [address] [place] [address] Shameka Chandler MD History of [...] PM EDT History of IUFD [facility] Routine 10/25/2024 2:00 PM EDT History of IUFD [facility] Routine 09/27/2024 3:24 PM EDT History of IUFD from Last 3 Months Results * [facility] (11/28/2024 2:55 PM EDT) Only the most recent of3 resultswithin the time period is included. Anatomical Region Laterality Modality Ultrasound 11/28/2024 2:31 PM EDT Narrative 11/28/2024 3:06 PM EDT PAT NAME: SANDEEP BRITO MED REC#: [id number] DA: [id number] PAT GEND: F PAT TYPE: O EXAM TED: [id number] REF PHYS HARINI GILBERT Comparison Studies The [...] EFW (oz) 15 oz EFW by: Hadlock ([id number]) Extended Cav. septi pel. tr 5.7 mm Production Control Analyst 6.3 mm CM 5.7 mm 10% Nicolaides [...] 4 weeks before IOL. Coding ======= Description: 80861-77 Follow Up Ultrasound Description: 47146-13 BPP without NST Drop Hammer Pile Driver Operator: Kristine Camp RDMS Physician: Deven Chinchilla MD, FACOG Electronically signed by: Deven Chinchilla MD, FACOG at: 15:06 Procedure Note Deven Chinchilla MD - 11/28/2024 PAT NAME: SANDEEP BRITO MED REC#: [id number] DA: [id number] PAT GEND: F PAT TYPE: O EXAM TED: [id number] REF PHYS HARINI GILBERT Comparison Studies The findings of this study are compared to the prior ultrasound studydated 10/25/24 Patient Status Outpatient Indication ======== Gestational diabetes. 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 Previous child with cerebral palsy.Hx seizures. Morbid obesity BMI 43. Maternal Assessment Qhmmcv266 cm Height (ft)5 ft Height (in)1 in Zxghpv759 kg Weight (lb)223 lb BMI42.65 kg/m Method ======= Transabdominal ultrasound examination. View: Adequate view ========= Cummins . Number of fetuses: 1 Dating ====== Method of dating:based on stated ROHINI GA by prior [id number] w + 6 d ROHINI by prior assessment:01/17/2025 Ultrasound examination on:11/28/2024 GA by U/S based upon:AC, BPD, Femur, HC GA by U/S35 w + 3 d ROHINI by U/S:12/30/2024 Previous dating:based on stated ROHINI, selected on 10/25/2024 Agreed ROHINI of previous datin01/17/2025 Assigned:based on stated ROHINI, selected on 11/28/2024 Assigned GA32 w + 6 d Assigned ROHINI:01/17/2025 [id number] d Biometry Standard BPD88.3 mm 35w 5d 98% Hadlock CUJ421.5 mm 38w 2d >99% Sindy HC322.8 mm 36w 3d 94% Hadlock Cerebellum tr43.7 mm 34w 0d 65% Hill AC322.9 mm 36w 1d >99% Hadlock Femur64.7 mm 33w 3d 53% Hadlock Krpbhle54.8 mm 32w 3d 49% Sindy HC / AC1.00 EFW2,683 g 35w 3d 97% Hadlock EFW (lb)5 lb EFW (oz)15 oz EFW by:Hadlock ([id number]) Extended Cav. septi pel. tr5.7 mm Vp6.3 mm CM5.7 mm 10% Nicolaides Head / Face / Neck Cephalic index0.78 33% Nicolaides Extremities / Bony Struc FL / BPD0.73 FL / HC0.20 FL / AC0.20 Other Structures [id number] bpm General Evaluation Cardiac activity present. FHR [...] in 4 weeks before IOL. Coding ======= Description:18825-37 Follow Up Ultrasound Description:95571-18 BPP without NST Drop Hammer Pile Driver Operator: Kristine Camp RDNC Physician: Deven Chinchilla MD, FACOG Electronically signed by: Deven Chinchilla MD, FACOG at: 15:06 Deven Chinchilla MD [facility] ORDERABLES Final Result from Last 3 Months Insurance [employer] Care Teams Client Business Manager Relationship Specialty Start Date End Date Loan Vick MD [address] [place] [address] PCP - General Family Medicine 08/23/24
--- OUTSIDE RECORDS SUMMARY | 2024-12-21 15:03 | XMS_ITS | Encounter Summary ---
Author Organization [facility] Address [address] [place] [address] Care Team Providers Care Mine Shifter Name Role Phone Loan Vick MD Primary Care Provider +1- [phone] Encounter Details Date Type Department Care Team [...] on filedocumented in this encounter Care Teams Mine Shifter Relationship Specialty Start Date End Date Loan Vick MD [address] [place] [address] PCP - General Family Medicine 08/23/24 documented as of this encounter
--- OUTSIDE RECORDS SUMMARY | 2024-12-21 15:04 | XMS_ITS | Encounter Summary ---
Author Organization [place] [address] Care Team Providers Care Concaver Name Role Phone Loan Vick MD Primary Care Provider +1- [phone] Encounter Details Date Type Department Care Team (Late st Contact Info) Description 08/30/2024 Orders Only SE Physical Therapy [facility] [address] [facility] [place] [address] Raquel Torres, PT [address] [place] [address] Social History Tobacco Use Types [...] on filedocumented in this encounter Care Teams Concaver Relationship Specialty Start Date End Date Loan Vick MD [address] [place] [address] PCP - General Family Medicine 03/23/16 documented as of this encounter
--- OUTSIDE RECORDS SUMMARY | 2024-12-21 15:04 | XMS_ITS | Encounter Summary ---
Author Organization [place] [address] Care Team Providers Care Dining Services Director Name Role Phone Loan Vick MD Primary Care Provider +1- [phone] Reason for Visit * Reason Comments Medication Refill Encounter Details Date Type Department Care Team (Late st Contact Info) Description 11/30/2024 Refill [facility] [address] [facility] [place] [address] Loan Vick MD [address] [place] [address] Medication Refill Social History Tobacco [...] requesting pharmacy. Routed to [facility] if an appointment is needed. documented [...] documented as of this encounter Care Teams Dining Services Director Relationship Specialty Start Date End Date Loan Vick MD [address] [place] [address] PCP - General Family Medicine 03/23/16 documented as of this encounter
--- OUTSIDE RECORDS SUMMARY | 2024-12-21 15:04 | XMS_ITS | Encounter Summary ---
Author Organization [facility] Address [address] [place] [address] Care Team Providers Care Fish Cake Maker Name Role Phone Loan Vick MD Primary Care Provider +1- [phone] Encounter Details Date Type Department Care Team [...] on filedocumented in this encounter Care Teams Fish Cake Maker Relationship Specialty Start Date End Date Loan Vick MD [address] [place] [address] PCP - General Family Medicine 08/23/24 documented as of this encounter
--- OUTSIDE RECORDS SUMMARY | 2024-12-21 15:04 | XMS_ITS | Encounter Summary ---
Author Organization [facility] Address [address] [place] [address] Care Team Providers Care Supervisor Finishing Name Role Phone Loan Vick MD Primary Care Provider +1- [phone] Encounter Details Date Type Department Care Team (Late st Contact Info) Description 11/26/2024 Medication Therapy Management [facility] [address] [facility] [address] [place] [address] Deven Chinchilla MD [address] [facility] [address] [place] [address] Social History Tobacco Use Types Packs/Day Years [...] filedocumented in this encounter Care Teams Supervisor Finishing Relationship Specialty Start Date End Date Loan Vick MD [address] [place] [address] PCP - General Family Medicine 08/23/24 documented as of this encounter
--- OUTSIDE RECORDS SUMMARY | 2024-12-21 15:04 | XMS_ITS | Encounter Summary ---
Author Organization [facility] Address [address] [facility] [place] [address] Care Team Providers Care Loan Servicing Specialist Name Role Phone Loan Vick MD Primary Care Provider +1- [phone] Encounter Details Date Type Department Care Team (Latest Contact Info) Description 01/25/2017 Lab Requisition [facility] [address] [place] [id number] Claudia Granado, KJ Encounter for screening for [...] Detected Not Detected 01/26/2017 11:41 AM EDT [facility] Neisseria gonorrhoeae Not Detected Not Detected 01/26/2017 11:41 AM EDT [facility] Swab (specimen) 01/25/2017 1 0:19 AM EDT 01/25/2017 5:18 PM EDT Narrative [facility] - 01/26/2017 11:41 AM EDT Testing methodology is sap bpc developer mediated amplification (TMA) using the Aptima Combo 2 assay from [employer]. A negative result does not completely rule [...] characteristics of this test were validated by [facility] laboratory. This assay is FDA cleared to test the following specimens: clinician-collected endocervical, vaginal and male urethral swab specimens, patient collected vaginal specimens within a clinic setting, Thin Prep Specimens in PreservCyt Solution, and first-stream, unpreserved male urine specimens. Testing on female urine is not FDA approved by this methodology, but has been developed and validated by the [facility] laboratory. Detailed methodology is available upon request. Claudia Granado APRN MICROBIOLOGY - GENERAL ORD ERABLES Final Result [facility] [address] [place] [address] documented in this encounter Visit Diagnoses Diagnosis [...] documented as of this encounter Care Teams Loan Servicing Specialist Relationship Specialty Start Date End Date Loan Vick MD [address] [place] [address] PCP - General Family Medicine 03/23/16 documented as of this encounter
--- OUTSIDE RECORDS SUMMARY | 2024-12-21 15:04 | XMS_ITS | Encounter Summary ---
Author Organization [place] [address] Care Team Providers Care Pot Lining Supervisor Name Role Phone Loan Vick MD Primary Care Provider +1- [phone] Reason for Visit * Reason Comments Medication Refill Encounter Details Date Type Department Care Team (Late st Contact Info) Description 04/21/2018 Refill [facility] [address] [facility] [place] [address] Loan Vick MD [address] [place] [address] Medication Refill Social History Tobacco [...] No 06/18/2017 11:43 AM MAYUR Quiroga Iram Pries JULIO CESAR documented in this encounter Plan [...] documented as of this encounter Care Teams Pot Lining Supervisor Relationship Specialty Start Date End Date Loan Vick MD [address] [place] [phone] PCP - General Family Medicine 03/23/16 documented as of this encounter
--- OUTSIDE RECORDS SUMMARY | 2024-12-21 15:04 | XMS_ITS | Clinical Summary ---
Author Organization [facility] Address [address] [place] [address] Phone Care Team Providers Care Printing Machinist Name Role Phone Loan Vick MD Primary Care Provider +1- [phone] Allergies Active Allergy Reactions Criticality Noted Date [...] inhibitors are contraindicated due to desire for charging plug placer - Discussed with Dr. Deven Chinchilla via phone who reminded that cholesterol is essential in and that high cholesterol for short time typically does not warrant treatment. I do agree but feel that treatment is warranted for her long-term health as her cholesterol has been significantly [...] Department Care Team Description 11/30/2024 Refill SEP [facility] [address] [place] [address] Loan Vick MD Medication Refill from Last 3 Months Immunizations Immunization Administration [...] (DALK) ; Surgeon: Armando Monreal MD; Location: [facility]; Service: Ophthalmology Medical devices from this surgery are in the Medical Devices section. 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 COLONOSCOPY 08/07/2015 N/A COLONOSCOPY and ESOPHAGOGASTRODUODENOSCOPY with biopsy; Surgeon: Jamey Schwab MD; Location: [facility]; Service: Endoscopy UPPER GASTROINTESTINAL ENDOSCOPY 08/07/2015 N/A Surgeon: Jamey Schwab MD; Location: [facility]; Service: Endoscopy DENTAL SURGERY permanent retainer in mouth CATARACT REMOVAL 11/05/2015 Right RIGHT EYE CATARACT EXTRACTION WITH PHACOEMULSIFICATION AND INTRAOCULAR LENS WITH RIGHT EYE WOUND REVISION ; Surgeon: Armando Monreal MD; Location: [facility]; Service: Ophthalmology Medical devices from this surgery are in the Medical Devices section. EYE SURGERY 11/05/2015 Right Surgeon: Armando Monreal MD; Location: [facility]; Service: Ophthalmology Medical devices from this surgery are in the Medical Devices section. EYE SURGERY 02/24/2016 Right RIGHT EYE YAG LASER CAPSULOTOMY; Surgeon: Armando Monreal MD; Location: [facility]; Service: Ophthalmology DILATION AND CURETTAGE OF UTERUS 09/16/2021 - 10/15/2021 CT NEEDLE BIOPSY LIVER 02/07/2024 CT NEEDLE BIOPSY LIVER 02/07/2024 Eduardo Betancourt MD [facility] CT Medical History Medical History Date [...] Wellness Exam 04/08/2024 04/08/2023 COVID-19 Vaccine ( season) 2024 05/27/2020, 04/29/2020 Influenza Vaccine (#1) 2024 , 04/08/2022, 12/18/2019, Additional history exists DTaP/TDaP/Td (8 [...] Cook RMA Medical Devices Implanted Type Area Product Accountant Device Identifier Shelf Expiration Date Model / Serial / Lot Cornea Tissue - [id number] Implanted:Qty: 1 on 03/27/2014 by Armando Monreal MD at [facility] Right: Eye UNKNOWN 04/01/2014 [id number] / [id number] / Lens Intraocular Preloaded 19.0 Diopter - [id number] Implanted:Qty: 1 on 11/05/2015 by Armando Monreal MD at [facility] Right: Eye EL LAB:SURG 03/17/2018 [id number] / [id number] / Procedures Procedure Name Priority Date/Time Associated Diagnosis Comments SCANNED LABS 12/20/2024 10:21 AM EDT SCANNED LABS 12/20/2024 10:21 AM EDT SCANNED LABS 11/24/2024 12:59 PM EDT SCANNED LABS 11/06/2024 11:04 PM EDT SCANNED LABS 10/24/2024 5:33 PM EDT GC CHLAMYDIA THIN PREP Routine 05/12/2020 11:00 AM EST Well adult exam FRONT DESK SPECIALIST CYTOLOGY REQUEST (PAP ONLY) Routine 05/12/2020 11:00 AM EST Well adult exam from Last 3 Months or Most Recently Relevant to Health Maintenance Results * SCANNED LABS (12/20/2024 10:21 AM EDT) Only the most recent of5 resultswithin the time period is included. 12/20/2024 10:2 1 AM EDT us Unknown Provider HEMATOLOGY ORDERABLES Final Res ult * FRONT DESK SPECIALIST CYTOLOGY REQUEST (PAP ONLY) (05/12/2020 11:00 AM EST) CASE REPORT Gynecologic Cytology Report Case: [id number] Authorizing Provider: Loan Vick MD Collected: 05/12/2020 1100 Ordering Location: [facility] Received: 05/12/2020 1100 First Screen: Leesa Jose CT Specimen: LIQUID-BASED PAP - CERVICAL/ENDOCERV ICAL, Cervix, Endocervical 05/14/2020 10:48 AM EST [facility] PAP FINAL DIAGNOSIS Negative for intraepithelial lesion or malignancy 05/14/2020 10:48 AM EST [facility] at 1048 EST MICROSCOPIC DESCRIPTION Microscopic examination is performed and the findings corroborate the diagnosis 05/14/2020 10:48 AM EST [facility] PAP SMEAR ADEQUACY Satisfactory for evaluation 05/14/2020 10:48 AM EST [facility] ENDOCERVICAL T-ZONE Transformation zone absent. 05/14/2020 10:48 AM EST [facility] EMBEDDED IMAGES 10:48 AM EST [facility] PAP DISCLAIMER The Pap Smear is a screening test that aids in the detection of cervical cancer and cancer precursors. Both false positive and false negative results can occur. The test should be used at regular intervals, and positive results should be confirmed before definitive therapy. Processed using the ThinPrep Hand Patcher Automated cytology screening device ([employer]). 05/14/2020 10:48 AM EST [facility] Thin Prep ENDOCERVICAL STRUCTURE / Unknown 05/12/2020 11:00 AM EST 05/12/2020 11:00 AM EST us Loan Vick MD CYTOLOGY ORDERABLES Final Result [facility] [address] [place] [id number] * GC CHLAMYDIA THIN PREP (05/12/2020 11:00 AM EST) Chlamydia trachomatis Not Detected Not Detected 05/13/2020 5:39 PM EST [facility] Neisseria gonorrhoeae Not Detected Not Detected 05/13/2020 5:39 PM EST [facility] Thin Prep SPECIMEN FROM UTERINE CERVIX / Unknown 05/12/2020 11:00 AM EST 05/12/2020 11:00 AM EST Narrative [facility] - 05/13/2020 5:39 PM EST Testing methodology is door slinger mediated amplification (TMA) using the Aptima Combo 2 assay from [email or web address]. A negative result does not completely rule [...] - GENERAL ORD ERABLES Final Result [facility] [address] [facility], [place] [address] from Last 3 Months or Most Recently Relevant to Health Maintenance Insurance [facility] PPO ANTHEM PPO ANTHEM PPO Care Teams Printing Machinist Relationship Specialty Start Date End Date Loan Vick MD [facility] [employer] [facility] [place] [id number] PCP - General Family Medicine 03/23/16
--- OUTSIDE RECORDS SUMMARY | 2024-12-21 15:04 | XMS_ITS | Encounter Summary ---
Author Organization [facility] Address [address] [place] [id number] Care Team Providers Care [employer] Law Clerk Name Role Phone Loan Vick MD Primary Care Provider +1- [phone] Reason for Visit * Reason Comments Med Refill Encounter Details Date Type Department Care Team (Late st Contact Info) Description 11/23/2024 Refill [facility] [address] [address] [place] [address] eDven Chinchilla MD [address] [facility] [address] [place] [address] Social History Tobacco Use Types Packs/Day Years [...] on filedocumented in this encounter Care Teams [employer] Law Clerk Relationship Specialty Start Date End Date Loan Vick MD [address] [place] [address] PCP - General Family Medicine 08/23/24 documented as of this encounter
[2024-12-21 16:00] VITALS: BP 116/55; PULSE 81; RESP 18; TEMP 36.8; O2SAT 98
[2024-12-21] MEDS: PRENATAL MULTIVITAMIN W/IRON 1 EACH PO (17:32)
[2024-12-21 20:52] VITALS: BP 119/60; PULSE 80; RESP 16; TEMP 36.8; O2SAT 98
[2024-12-21] MEDS: CALCIUM CARBONATE 500MG CHEWTAB 1000 MG PO (21:42)
[2024-12-22 03:22] VITALS: BP 110/54; PULSE 81; RESP 19; TEMP 36.6; O2SAT 98
[2024-12-22] MEDS: ACETAMINOPHEN 500MG TAB 1000 MG PO (03:30)
--- NOTE | 2024-12-22 07:00 | US_ITS ---
PROCEDURE INFORMATION: Exam: US Biophysical Profile Without Non-Stress Test Exam date and time: 12/22/2024 9:53 AM Age: 24 years old Clinical indication: status abnormalities: ; Other: Gest db; Single gestation; Third trimester (>=28 weeks 0 days); ; Additional info: HX stillbirth, lga, gestational diabetes TECHNIQUE: Imaging protocol: US biophysical profile without non-stress testing. COMPARISON: US OB BIOPHYSICAL PROFILE 12/21/2024 10:44 AM FINDINGS: Gestation: Fetus in cephalic position. Placenta is posterior fundal. BIOPHYSICAL PROFILE: breathing (BPP): 2 out of 2. gross body movement (BPP): 2 out of 2. tone (BPP): 2 out of 2. Amniotic fluid (BPP): 2 out of 2. IMPRESSION: Biophysical profile score is 8 out of 8.
--- NOTE | 2024-12-22 10:01 | P.PN_ITS ---
Subjective *Date: 12/22/24 *Time: 10:01 Interval history: She is now 36 weeks and 3 days gestational age. She is doing well. Her nonstress test is reactive. Good yyow-az-bifu variability and good accelerations. She is having occasional contractions and feels a contraction about once every 6 minutes. Otherwise baby is active. Medical Exam Vital signs and Labs for Last 24 Hours: Vital Signs Temp Pulse Resp BP Pulse Ox O2 Del Method 12/22/24 03:22 97.8 F 81 19 110/54 L 98 Room Air 12/21/24 20:52 98.3 F 80 16 119/60 98 Room Air 12/21/24 16:00 98.3 F 81 18 116/55 L 98 Room Air I & O for Labs for Last 24 Hours: Intake & Output 12/19/24 12/20/24 12/21/24 12/22/24 11:59 11:59 11:59 11:59 Intake Total 1000 / 1000 Balance 1000 / 1000 Weight 227 lb Microbiology Reports for the Last 24 Hours: Microbiology 12/20/24 08:38 Urine,Clean Catch Urine Culture - Final NO GROWTH AFTER 48 HOURS Head: Present normocephalic Neck: Present normal inspection Respiratory: Present normal respiratory effort; Absent accessory muscle use Assessment and Plan *Assessment and plan (1) History of stillbirth: Status: Acute Category: Medical Code(s): Z87.59 - Personal history of other complications of , childbirth and the puerperium (2) Maternal obesity affecting , antepartum: Status: Acute Qualifiers: Obesity type affecting : unspecified obesity Qualified C ode(s): O99.210 - Obesity complicating , unspecified trimester Category: Medical Code(s): O99.210 - Obesity complicating , unspecified trimester (3) Gestational diabetes: Status: Acute Qualifiers: Gestational diabetes mellitus control: insulin-controlled Trimester: third trimester Qualified Code(s): O24.414 - Gestational diabetes mellitus in , insulin controlled Category: Medical Code(s): O24.419 - Gestational diabetes mellitus in , unspecified control Plan She continues to do well this morning. She is having a few more contractions but they are mild in nature. Nonstress test is reactive. Biophysical profile yesterday was 8 out of 8. We will repeat her biophysical today. The plan is to deliver her at 37 weeks.
[2024-12-22] MEDS: PRENATAL MULTIVITAMIN W/IRON 1 EACH PO (17:34)
[2024-12-22] MEDS: DESVENLAFAXINE 100 MG 1 EACH PO (19:35)
[2024-12-22] MEDS: ASPIRIN 81MG CHEWABLE TABLET 81 MG PO (19:36)
[2024-12-22] MEDS: INSULIN GLARGINE 100 UNITS/ML 3ML FLEXPEN 5 UNIT SUBCUT (21:38)
--- NOTE | 2024-12-23 09:59 | EXP.ACUTE.PN ---
Subjective *Date: 12/23/24 *Time: 09:59 Interval history: She is doing well this morning. She is eating and drinking and ambulating. Her nonstress test is reactive. She had a biophysical profile yesterday that was 8 out of 8. She will get another biophysical profile today. We will plan to induce her in 48 hours. Medical Exam I & O for Labs for Last 24 Hours: Intake & Output 12/20/24 12/21/24 12/22/24 12/23/24 11:59 11:59 11:59 11:59 Intake Total 1000 / 1000 Balance 1000 / 1000 Weight 227 lb Head: Present normocephalic Neck: Present normal inspection Respiratory: Present normal respiratory effort; Absent accessory muscle use Assessment and Plan *Assessment and plan (1) History of stillbirth: Status: Acute Category: Medical Code(s): Z87.59 - Personal history of other complications of , childbirth and the puerperium (2) Maternal obesity affecting , antepartum: Status: Acute Qualifiers: Obesity type affecting : unspecified obesity Qualified Code(s): O99.210 - Obesity complicating , unspecified trimester Category: Medical Code(s): O99.210 - Obesity complicating , unspecified trimester (3) Gestational diabetes: Status: Acute Qualifiers: Gestational diabetes mellitus control: insulin-controlled Trimester: third trimester Qualified Code(s): O24.414 - Gestational diabetes mellitus in , insulin controlled Category: Medical Code(s): O24.419 - Gestational diabetes mellitus in , unspecified control (4) Large for gestational age fetus affecting management of mother, antepartum: Status: Acute Qualifiers: Fetus number: single or unspecified fetus Qualified Code(s): O36.60X0 - Maternal care for excessive growth, unspecified trimester, not applicable or unspecified Category: Medical Code(s): O36.60X0 - Maternal care for excessive growth, unspecified trimester, not applicable or unspecified Plan 1. She continues to do well this morning. Nonstress test is reactive with good fuyv-ml-dlst variability and accelerations. 2. Biophysical profile was 8 out of 8 yesterday. Will repeat the biophysical profile today. 3. Will plan to deliver her in 48 hours.
--- NOTE | 2024-12-23 10:36 | US_ITS ---
PROCEDURE INFORMATION: Exam: US Biophysical Profile Without Non-Stress Test Exam date and time: 12/23/2024 11:13 AM Age: 24 years old Clinical indication: Screening exam; Routine US screening of fetus; Third trimester (>=28 weeks 0 days); ; Additional info: wellbeing TECHNIQUE: Imaging protocol: US biophysical profile without non-stress testing. COMPARISON: US OB BIOPHYSICAL PROFILE 12/22/2024 9:53 AM FINDINGS: heart rate: 150 bpm presentation and position: Cephalic presentation Amniotic fluid index: KALEIGH is 9.94 cm. BIOPHYSICAL PROFILE: breathing (BPP): 2 /2 gross body movement (BPP): 2 /2 tone (BPP): 2 /2 Amniotic fluid (BPP): 2 /2 Biophysical profile score (BPP): 8 /8 kidneys: Normal kidneys urinary bladder: Normal bladder Umbilical cord vessel number: Normal three-vessel cord IMPRESSION: Biophysical profile score is 8 out of 8.
[2024-12-23] MEDS: INSULIN GLARGINE 100 UNITS/ML 3ML FLEXPEN 5 UNIT SUBCUT (18:27)
[2024-12-23 19:35] LABS: POC Glucose,Bedside 136 gm/dL (70-110)
[2024-12-23] MEDS: PRENATAL MULTIVITAMIN W/IRON 1 EACH PO (20:21)
[2024-12-23] MEDS: ASPIRIN 81MG CHEWABLE TABLET 81 MG PO (20:21)
[2024-12-23] MEDS: DESVENLAFAXINE 100 MG 1 EACH PO (20:22)
[2024-12-24 05:05] VITALS: BP 117/72; PULSE 73; RESP 17; TEMP 36.7; O2SAT 99
[2024-12-24] MEDS: LANOLIN CREAM 40GM TP (07:35)
[2024-12-24 08:31] VITALS: BP 122/70; PULSE 77; RESP 16; TEMP 36.7; O2SAT 99
--- NOTE | 2024-12-24 10:57 | US_ITS ---
PROCEDURE: US OB BIOPHYSICAL PROFILE CLINICAL INDICATION: History of full term still . COMPARISON: US US OB <= 14 WEEKS FETUS from 06/04/2024 US US OB BIOPHYSICAL PROFILE from 10/29/2024 US US OB BIOPHYSICAL PROFILE from 11/14/2024 US US OB BIOPHYSICAL PROFILE from 11/23/2024 US OB BIOPHYSICAL PROFILE from 12/07/2024 US OB BIOPHYSICAL PROFILE from 12/08/2024 US OB BIOPHYSICAL PROFILE from 12/10/2024 US OB BIOPHYSICAL PROFILE from 12/18/2024 US US OB BIOPHYSICAL PROFILE from 12/20/2024 US US OB BIOPHYSICAL PROFILE from 12/21/2024 US OB BIOPHYSICAL PROFILE from 12/22/2024 US OB BIOPHYSICAL PROFILE from 12/23/2024 FINDINGS: Transabdominal sonographic images of the uterus were obtained. From her established due date she is 36weeks 4days. The following parameters are obtained: Viable Fetus in the cephalic presentation with a posterior placenta grade 2. A small placental Thurman is seen. Cervix measures 2.57 cm in length. Amniotic fluid index: 12.54cm, MVP 4.76 cm Qualitative AFV:2 Breathing movements: 2 Gross Body Movements: 2 Tone: 2 Biophysical profile score: 8 No obvious anomalies evident.Kidneys, bladder, four-chamber heart, three-vessel cord appear normal. IMPRESSION: 1. Viable fetus in the cephalic presentation with posterior placenta grade 2. A small placental thurman is seen. 2. The fluid is within normal limits with an amniotic fluid index 12.54 cm, MVP 4.76 cm. 3. Biophysical profile is 8/8 with good breathing movement and movement seen. 4. Limited anatomical scan appears normal. Dictated by: Driss Rice MD 12/24/2024 14:11 Driss Rice MD in OV 12/24/2024 14:11
[2024-12-24] MEDS: INSULIN GLARGINE 100 UNITS/ML 3ML FLEXPEN 5 UNIT SUBCUT (18:31)
[2024-12-24 18:37] LABS: Hematocrit 34.4 % (37.0-47.0); Hemoglobin 11.2 g/dL (12.2-16.2); Immature Granulocytes % 1.4 %; Mean Corpuscular HGB Conc 32.6 g/dL (31.8-35.4); Mean Corpuscular Hemoglobin 29.7 pg (27.0-31.2); Mean Corpuscular Volume 91.2 fl (81-99); Nucleated Red Blood Cells % 0.2 %; Platelet Count 141 K/mm3 (142-424); Red Blood Count 3.77 M/mm3 (4.20-5.40); Red Cell Distribution Width-SD 47.5 fL; White Blood Count 8.6 K/mm3 (4.8-10.8)
[2024-12-24] MEDS: PRENATAL MULTIVITAMIN W/IRON 1 EACH PO (20:56)
[2024-12-24] MEDS: DESVENLAFAXINE 100 MG 1 EACH PO (20:57)
[2024-12-24] MEDS: ASPIRIN 81MG CHEWABLE TABLET 81 MG PO (20:57)
[2024-12-24 21:03] VITALS: BP 124/79; PULSE 85; RESP 18; TEMP 36.9; O2SAT 98
[2024-12-25] VITALS (15 sets, daily range): BP systolic 111–158; BP diastolic 65–92; PULSE 70–91; RESP 16–20; TEMP 36.6–38.4; O2SAT 98–100
[2024-12-25] MEDS: CLINDAMYCIN PHOSPHATE/D5W 900 MG/50 ML PIGGYBACK 100 MG IV ×2 (03:30→11:00)
[2024-12-25] MEDS: DEXTROSE 5%-LACTATED RINGERS 1,000 ML 125 ML IV (05:05)
[2024-12-25] MEDS: ONDANSETRON 4MG ODT 4 MG SL (05:05)
[2024-12-25] MEDS: OXYTOCIN/RINGERS LACTATE 30 UNITS/500 ML BAG IV (05:07)
[2024-12-25] MEDS: LACTATED RINGERS 1000ML 1,000 ML 999 ML IV ×2 (08:59→13:26)
--- NOTE | 2024-12-25 10:10 | P.PNANES_ITS ---
[facility] Disclaimer: The information contained in this section may have been updated after the patient was seen, as this information can be updated by other users. Medical History Normal delivery at term History of stillbirth Maternal obesity affecting , antepartum 34 weeks gestation of Hematuria Rectal or anal pain Retained products of conception, endometritis fever Endometritis hypertension anemia Renal colic Viral illness Asthmatic bronchitis Cornea transplant recipient Cataract Surgical History Hx of dilation and curettage Family History Sister Lupus Father Diabetes Grandmother Cancer Social History (Updated 12/20/24 @ 20:26 by Merced Guthrie RN) Smoking Status: Never smoker alcohol intake: never substance use type: denies use current occupational status: employed and other Travel in the last 8 weeks?: None household members: spouse housing: house caffeine: No [facility] Anesthesia Checklist Patient Identification Patient Identification: Arm Band and Verbal (Name & ) Structural Data Admitted From: Inpatient Planned Operative Procedure/s: Labor epidural Consent for Planned Operative Procedure(s) Verified: Yes Verified Documents: Surgical Consent NPO Status Verified Time NPO: 00:00 Chart Verification Results Verified: CBC Additional verifications Patient : Yes Anesthesia Reactions: No Airway Assessment Mallampati Score:: Class II C-Spine Mobility Assessed: No TMJ Mobility Assessed: No Dentition: Good Dentition Neurological Assessment Level of Consciousness: Awake, Alert and Appropriate Hx Seizures: No Numbness or tingling in extremities: No Anesthesia Plan Anesthesia Risk discussed: Yes Anesthesia Plan: Verified ASA Class: II Anesthesia Type: Epidural
[2024-12-25] MEDS: LACTATED RINGERS 1000ML 1,000 ML 250 ML IV (11:28)
--- NOTE | 2024-12-25 11:42 | PC.NURSE ---
RED called at 1134. Sx notified immediately. Pt left floor with OB staff via stretcher at 1137.
[2024-12-25] MEDS: OXYTOCIN/RINGERS LACTATE 30 UNITS/500 ML BAG 999 UNITS IV (12:15)
--- NOTE | 2024-12-25 12:23 | P.PN_ITS ---
Subjective *Date: 12/25/24 *Time: 08:00 Interval history: pitocin started, comfortable currently, desires epidural Exam Data for Last 24 hours Vital signs and Labs for Last 24 Hours: Temp Pulse Resp BP Pulse Ox O2 Del Method 98.9 F 77 16 111/65 98 Room Air 12/25/24 10:20 12/25/24 08:12 12/25/24 08:12 12/25/24 08:12 12/25/24 08:12 12/25/24 08:12 Laboratory Results - last 24 hr 12/24/24 18:07: WBC 8.6, RBC 3.77 L, Hgb 11.2 L, Hct 34.4 L, MCV 91.2, MCH 29.7, MCHC 32.6, RDW 14.4, Plt Count 141 L, MPV 12.9 H, Neut % (Auto) 68.1, Lymph % (Auto) 23.0, [place] % (Auto) 6.6, Eos % (Auto) 0.7, Baso % (Auto) 0.2, Neut # (Auto) 5.8, Lymph # (Auto) 2.0, [place] # (Auto) 0.6, Eos # (Auto) 0.1, Baso # (Auto) 0.0, Blood Type A Positive, Antibody Screen Negative, Crossmatch (AHG) See Detail 12/25/24 11:50: Cord ABG pH 7.35 I & O for Last 24 hours: Intake & Output 12/22/24 12/23/24 12/24/24 12/25/24 23:59 23:59 23:59 23:59 Intake Total 1050 / 1050 Balance 1050 / 1050 Assessment and Plan *Assessment and plan (1) History of stillbirth: Status: Acute Category: Medical Code(s): Z87.59 - Personal history of other complications of , childbirth and the puerperium (2) Maternal obesity affecting , antepartum: Status: Acute Qualifiers: Obesity type affecting : unspecified obesity Qualified Code(s): O99.210 - Obesity complicating , unspecified trimester Category: Medical Code(s): O99.210 - Obesity complicating , unspecified trimester (3) Gestational diabetes: Status: Acute Qualifiers: Gestational diabetes mellitus control: insulin-controlled Trimester: third trimester Qualified Code(s): O24.414 - Gestational diabetes mellitus in , insulin controlled Category: Medical Code(s): O24.419 - Gestational diabetes mellitus in , unspecified control (4) Large for gestational age fetus affecting management of mother, antepartum: Status: Acute Qualifiers: Fetus number: single or unspecified fetus Qualified Code(s): O36.60X0 - Maternal care for excessive growth, unspecified trimester, not applicable or unspecified Category: Medical Code(s): O36.60X0 - Maternal care for excessive growth, unspecified trimester, not applicable or unspecified Plan AROM, clear fluid IUPC and FSE placed doing well desires epidural
[2024-12-25] MEDS: OXYTOCIN/RINGERS LACTATE 30 UNITS/500 ML BAG 40 UNITS IV (12:30)
[2024-12-25 13:54] LABS: Hematocrit 38.1 % (37.0-47.0); Hemoglobin 12.3 g/dL (12.2-16.2)
[2024-12-25 14:11] LABS: Activated Partial Thrombo Time 24.8 seconds (22.8-30.6); Fibrinogen 383 mg/dL (229.9-363.5); INR 1.02 (0.9-1.1); Prothrombin Time 11.3 seconds (10.1-12.5)
[2024-12-25] MEDS: ACETAMINOPHEN 500MG TAB 1000 MG PO ×2 (14:12→20:36)
--- NOTE | 2024-12-25 14:21 | P.PCN_ITS ---
Delivery Note Delivery Date:: 12/25/24 Delivery Time:: 11:41 Anesthesia Type: Epidural Was labor medically induced?: Yes Induction method: per pitocin protocol Gestational age (weeks): 36 delivered prior to 39 weeks?: Yes Justification for early elective delivery:: Diabetes Mellitus and Other (hx of demise ) Gender: Female at 1 minute: 6 at 5 minutes: 9 Delivery Procedure:: Preoperative diagnosis: 1. at 36 completed this weeks gestation, vertex 2. Rh positive 3. GBS positive 4. Gestational diabetes, insulin managed 5. History of stillbirth Postoperative diagnosis: 1. at 36 completed this weeks gestation, vertex 2. Rh positive 3. GBS positive 4. Gestational diabetes, insulin managed 5. History of stillbirth EBL: 350mL Specimen: 1. Cord blood 2. Cord gases. Arterial cord gas: 7.35. Base excess: -7.4 3. Placenta Findings: 1. Liveborn viable female infant: Nadeen Gilbert. Apgars 6/9 at 1 and 5 minutes respectively. Weight: 7lb 12oz Complications: None Procedure: Forceps assisted vaginal delivery Patient was admitted over the weekend for monitoring secondary to persistent abdominal pain and contractions and lower abdomen pitting edema as well as decreased movement. The patient states that this is what happened with her last delivery which ended in stillbirth. Given diagnosis of gestational diabetes with a history of stillbirth decision was made to proceed with delivery at 36+ weeks gestation. Dyspnea started on Pitocin for labor augmentation and had artificial rupture membranes, revealing clear fluid. Secondary to having a difficult time tracing the infant and to significant pain in her lower abdomen where she was having a hard time tolerating the monitor straps decision was made to place internal monitors. The patient was counseled and internals will place with ease. The patient began having variable decelerations they recovered to baseline with good variability in between contractions. The infant was noted to be the direct OP position. She had a very effective epidural and had a difficult time feeling her contractions or pushing with her contractions. heart rate deceleration was noted and becoming more prolonged without recovery between contractions infant was noted to be mid station with minimal descent with pushing. Decision was made to proceed to the OR to prep for delivery and Dr. Rice was called to the delivery for forceps assessment. Decision was made to place forceps. Her bladder had been drained and her anesthesia was adequate. The was noted to be OP. Dr. Rice placed mid forceps, left blade was placed first followed by the right blade. Prior to placement a phantom application was completed. And with 2 maternal pushes less than 2 minutes delivery of the head was noted. was noted to be OP. There was no nuchal cord. The anterior shoulder delivered, followed by the posterior shoulder without dystocia. The body and lower extremities delivered without difficulty. The infant was bulb suctioned and was crying following delivery. The cord was doubly clamped and cut and the infant was placed in the warmer for evaluation by the pediatric team and information technology auditor. Cord blood was collected and sent for routine testing. Cord gases were collected. The placenta delivered with cord traction and suprapubic contertraction. Pitocin was started. The uterus was firm and bleeding was minimal. The perineum, vaginal genao, cervix, and paraurethral area were inspected thoroughly and noted to be hemostatic and free of laceration. This concluded the delivery. The patient was counseled regarding the events of the delivery and repair. The patient tolerated the delivery well. All counts were correct by nursing. Mother and infant were doing well and bonding upon my leaving the delivery room. When I let the delivery room her bleeding was stable and her fundus was 1 below the umbilicus and firm. After delivery when she got on labor and delivery she had a an episode of bleeding and a dose of 1000 mcg of Cytotec was given. They called with a second episode of bleeding and I presented to bedside where I cleared greater than 500mL of blood clot out of her uterus and placed the Rosanna device. At this time we are able to get an accurate blood pressure reading and it was within normal limits and a dose of Methergine was also given. She also received a dose of TXA. Secondary to several bimanual exams she was started on prophylactic antibiotics. She has an allergy to penicillin so gentamicin, and clindamycin were used. She has 2 large-bore IVs coagulation studies were ordered and she is being followed closely for hemorrhage. At time of documentation her QBL is 1300. When I with the delivery room Hilary was in and the uterus was firm and below. A Melendez catheter had been placed to continuously drain the bladder Placental Delivery Description: Spontaneous
[2024-12-25] MEDS: GENTAMICIN SULFATE 500 MG in 0.9 % SODIUM CHLORIDE 100 ML 100 MG IV (14:26)
[2024-12-25 14:50] LABS: Hemoglobin 11.1 g/dL (12.2-16.2); Red Blood Count 3.73 M/mm3 (4.20-5.40); White Blood Count 14.3 K/mm3 (4.8-10.8)
[2024-12-25 14:51] LABS: Hematocrit 33.4 % (37.0-47.0); Immature Granulocytes % 0.9 %; Mean Corpuscular HGB Conc 33.2 g/dL (31.8-35.4); Mean Corpuscular Hemoglobin 29.8 pg (27.0-31.2); Mean Corpuscular Volume 89.5 fl (81-99); Nucleated Red Blood Cells % 0 %; Platelet Count 127 K/mm3 (142-424); Red Cell Distribution Width-SD 45.4 fL
[2024-12-25 16:17] LABS: RPR W/RFX Titers Nonreactive (Nonreactive)
[2024-12-25 16:24] LABS: POC Glucose,Bedside 65 gm/dL (70-110)
[2024-12-25] MEDS: IBUPROFEN 400 MG TABLET 800 MG PO ×2 (17:13→23:53)
[2024-12-25] MEDS: SODIUM CHLORIDE 0.9% IV (17:55)
[2024-12-25] MEDS: ERYTHROMYCIN LACTOBIONATE IV (17:55)
[2024-12-25] MEDS: DESVENLAFAXINE 100 MG 1 EACH PO (20:37)
[2024-12-25] MEDS: PRENATAL MULTIVITAMIN W/IRON 1 EACH PO (20:37)
[2024-12-25] MEDS: OXYCODONE 5MG IMMEDIATE RELEASE TABLET 5 MG PO (21:39)
[2024-12-25] MEDS: WITCH HAZEL 40 PADS/BOX 1 EACH TP (21:39)
[2024-12-25] MEDS: BENZOCAINE-MENTHOL SPRAY 56GM CAN TP (21:39)
[2024-12-26 00:10] VITALS: BP 118/76; PULSE 68; RESP 17; TEMP 36.6; O2SAT 98
[2024-12-26] MEDS: ACETAMINOPHEN 500MG TAB 1000 MG PO ×3 (02:49→20:55)
[2024-12-26 05:05] VITALS: BP 138/97; PULSE 64; RESP 18; TEMP 36.6; O2SAT 99
[2024-12-26] MEDS: SENNA 8.6MG TABLET 8.6 MG PO ×2 (05:12→18:15)
[2024-12-26 06:00] LABS: Hematocrit 41.6 % (37.0-47.0); Immature Granulocytes % 1.2 %; Mean Corpuscular HGB Conc 32.5 g/dL (31.8-35.4); Mean Corpuscular Hemoglobin 29.3 pg (27.0-31.2); Mean Corpuscular Volume 90.2 fl (81-99); Nucleated Red Blood Cells % 0 %; Platelet Count 119 K/mm3 (142-424); Red Blood Count 4.61 M/mm3 (4.20-5.40); Red Cell Distribution Width-SD 49.8 fL; White Blood Count 14.6 K/mm3 (4.8-10.8)
[2024-12-26 06:03] LABS: Hemoglobin 13.4 g/dL (12.2-16.2)
--- NOTE | 2024-12-26 08:58 | EXP.PN ---
Subjective *Date: 12/26/24 *Time: 08:58 Interval history: Pili Kyle is a 24yo PPD#1 from a FAVD at 36w5d gestation. Delivery and course were complicated by a primary PPH. THis morning she is resting comfortably in bed. is doing well, per nursing being followed for hypoglycemia -Reports pain is well-controlled -Reports she is tolerating p.o. without nausea or vomiting. -Reports her lochia is scant. -Undecided contraception, considering vasectomy -She is breast-feeding her female infant -Ambulating, voiding difficulty or dysuria. Denies chest pain shortness of breath or pain in her legs. No further complaints at this time. Exam Data for Last 24 hours Vital signs and Labs for Last 24 Hours: Temp Pulse Resp BP Pulse Ox O2 Del Method 97.9 F 64 18 138/97 H 99 Room Air 12/26/24 05:05 12/26/24 05:05 12/26/24 05:05 12/26/24 05:05 12/26/24 05:05 12/26/24 05:05 Laboratory Results - last 24 hr 12/24/24 18:07: RPR w/Rflx to Titer Nonreactive, Blood Type A Positive, Antibody Screen Negative, Crossmatch (AHG) See Detail 12/25/24 11:50: Cord ABG pH 7.35 12/25/24 13:46: PT 11.3, INR 1.02, APTT 24.8, Fibrinogen 383 H 12/25/24 13:49: WBC 14.3 H D, RBC 3.73 L, Hgb 12.3 12/25/24 13:49: Hgb 11.1 L, Hct 38.1 12/25/24 13:49: Hct 33.4 L, MCV 89.5, MCH 29.8, MCHC 33.2, RDW 14.0, Plt Count 127 L, MPV 12.3 H, Neut % (Auto) 78.1, Lymph % (Auto) 13.0, [place] % (Auto) 7.6, Eos % (Auto) 0.2, Baso % (Auto) 0.2, Neut # (Auto) 11.2 H, Lymph # (Auto) 1.9, [place] # (Auto) 1.1 H, Eos # (Auto) 0.0, Baso # (Auto) 0.0 12/25/24 16:17: POC Glucose 65 L 12/26/24 05:05: WBC 14.6 H, RBC 4.61, Hgb 13.4 D, Hct 41.6, MCV 90.2, MCH 29.3, MCHC 32.5, RDW 15.2, Plt Count 119 L, MPV 12.6 H, Neut % (Auto) 68.6, Lymph % (Auto) 23.0, [place] % (Auto) 6.4, Eos % (Auto) 0.5, Baso % (Auto) 0.3, Neut # (Auto) 10.0 H, Lymph # (Auto) 3.4, [place] # (Auto) 0.9, Eos # (Auto) 0.1, Baso # (Auto) 0.1 I & O for Last 24 hours: Intake & Output 12/23/24 12/24/24 12/25/24 12/26/24 23:59 23:59 23:59 23:59 Intake Total 4582.5 / 4582.5 Output Total 1450 / 1450 600 / 600 Balance 3132.5 / 3132.5 -600 / -600 Narrative: General: patient is alert oriented in no acute distress and responds appropriately to questions. Appears to be in minimal pain. HEENT: NCAT, EOMI, moist mucous membranes, neck supple with full ROM Cardiovascular: RRR +S1/S2, no murmurs or rubs Pulmonary: Clear to auscultation bilaterally, nonlabored breathing, symmetric chest rise Abdominal: Fundus at the umbilicus, firm, and tenderness appropriate for the period. Extremities: trace edema, no tenderness or cyanosis noted Skin: Normal turgor, intact, warm. Negative for erythema, pallor, petechia, or lesions. Mottling was present yesterday and has resloved thism orning Neurologic: Negative for sensory or motor deficit Psychiatric: Normal affect, normal thought process, good judgment and insight, no depression or anxious mood appreciated. Assessment and Plan *Assessment and plan (1) History of stillbirth: Status: Acute Category: Medical Code(s): Z87.59 - Personal history of other complications of , childbirth and the puerperium (2) Maternal obesity affecting , antepartum: Status: Acute Qualifiers: Obesity type affecting : unspecified obesity Qualified Code(s): O99.210 - Obesity complicating , unspecified trimester Category: Medical Code(s): O99.210 - Obesity complicating , unspecified trimester (3) Gestational diabetes: Status: Acute Qualifiers: Gestational diabetes mellitus control: insulin-controlled Trimester: third trimester Qualified Code(s): O24.414 - Gestational diabetes mellitus in , insulin controlled Category: Medical Code(s): O24.419 - Gestational diabetes mellitus in , unspecified control (4) : Status: Acute Qualifiers: Weeks of gestation: less than 8 weeks Qualified Code(s): Z3A.01 - Less than 8 weeks gestation of Category: Medical Code(s): Z34.90 - Encounter for supervision of normal , unspecified, unspecified trimester (5) Large for gestational age fetus affecting management of mother, antepartum: Status: Acute Qualifiers: Fetus number: single or unspecified fetus Qualified Code(s): O36.60X0 - Maternal care for excessive growth, unspecified trimester, not applicable or unspecified Category: Medical Code(s): O36.60X0 - Maternal care for excessive growth, unspecified trimester, not applicable or unspecified (6) Forceps delivery with baby delivered: Status: Acute Category: Medical Code(s): O75.9 - Complication of labor and delivery, unspecified (7) Forceps or vacuum extractor delivery: Status: Acute Category: Medical Code(s): Z37.9 - Outcome of delivery, unspecified Plan #36w5d #FAVD #PPH Stable. PPD#1 s/p VAVD -Doing well. VSS. Serial lochia and fundal checks. -Continue with perineal ice packs for discomfort -Hemoglobin: 12.3--> 13.4. Patient received 1 unit of packed red blood cells during her hemorrhage yesterday. PPH was also treated with at 1000 mcg of rectal Cytotec, 1 g of TXA, IV high-dose Pitocin, 1 dose of IM Methergine -A+/antibody negative -, female -Contraception: undecided -Follow-up 2 weeks for routine visit -Dispo: home in 1-3 days pending mother/infant status #GDM -DC accuchecks -at 6wk pp ordered 2hr GTT with 75g glucose #Thrombocytopenia -Likely gestational thrombocytopenia but out of extreme precaution we will repeat CBC this evening
[2024-12-26] MEDS: IBUPROFEN 400 MG TABLET 800 MG PO ×2 (11:04→23:40)
[2024-12-26 16:36] LABS: Hematocrit 30.0 % (37.0-47.0)
[2024-12-26 16:46] LABS: Hemoglobin 10.1 g/dL (12.2-16.2)
[2024-12-26 17:10] LABS: Platelet Count 109 K/mm3 (142-424)
[2024-12-26 19:38] VITALS: BP 123/82; PULSE 68; RESP 16; TEMP 36.7; O2SAT 98
[2024-12-26] MEDS: PRENATAL MULTIVITAMIN W/IRON 1 EACH PO (20:55)
[2024-12-26] MEDS: DESVENLAFAXINE 100 MG 1 EACH PO (20:56)
[2024-12-27 00:02] VITALS: BP 133/80; PULSE 58; RESP 19; TEMP 36.2; O2SAT 99
[2024-12-27] MEDS: SIMETHICONE 80MG CHEWABLE TABLET 160 MG PO (00:07)
[2024-12-27] MEDS: LACTATED RINGERS 1000ML 1,000 ML 100 ML IV (00:21)
[2024-12-27] MEDS: OXYCODONE 5MG IMMEDIATE RELEASE TABLET 5 MG PO (00:21)
[2024-12-27 04:22] VITALS: BP 134/89; PULSE 58; RESP 16; TEMP 36.4; O2SAT 97
[2024-12-27] MEDS: ACETAMINOPHEN 500MG TAB 1000 MG PO (05:32)
[2024-12-27 06:09] LABS: Hematocrit 34.5 % (37.0-47.0); Immature Granulocytes % 0.9 %; Mean Corpuscular HGB Conc 32.5 g/dL (31.8-35.4); Mean Corpuscular Hemoglobin 29.3 pg (27.0-31.2); Mean Corpuscular Volume 90.3 fl (81-99); Nucleated Red Blood Cells % 0 %; Platelet Count 120 K/mm3 (142-424); Red Blood Count 3.82 M/mm3 (4.20-5.40); Red Cell Distribution Width-SD 50.4 fL; White Blood Count 10.2 K/mm3 (4.8-10.8)
[2024-12-27 06:19] LABS: Hemoglobin 11.3 g/dL (12.2-16.2)
[2024-12-27 09:03] VITALS: BP 139/79; PULSE 62; RESP 18; TEMP 36.8; O2SAT 100
[2024-12-27 09:23] LABS: Alanine Aminotransferase 11 U/L (12-78); Albumin Level 2.9 g/dl (3.5-5.0); Albumin/Globulin Ratio 1.3 (1.1-1.8); Alkaline Phosphatase 115 U/L (38-126); Anion Gap 7.1 mEq/L (5-15); Aspartate Amino Transferase 26 U/L (14-36); Bilirubin,Total 0.3 mg/dl (0.2-1.3); Blood Urea Nitrogen 5 mg/dl (7-17); Calcium 8.4 mg/dl (8.4-10.2); Carbon Dioxide 26 mmol/L (22.0-30.0); Chloride 107 mmol/L (98-107); Creatinine Clearance Estimated 112 mL/min (50-200); Creatinine,Serum 0.60 mg/dl (0.52-1.04); Estimated Glomerular Filt Rate 121 ml/min (>60); GFR (African American) 146 ML/MIN (>60); Globulin 2.3 g/dL (1.3-3.2); Glucose 65 mg/dl (74-100); Potassium 4.1 mmoL/L (3.5-5.1); Sodium 136 mmol/L (136-145); Total Protein,Serum 5.2 g/dl (6.3-8.2)
[2024-12-27] MEDS: SENNA 8.6MG TABLET 8.6 MG PO (12:29)
[2024-12-27 15:21] VITALS: BP 126/78; PULSE 64; RESP 18; TEMP 37.1; O2SAT 99
--- NOTE | 2024-12-27 17:41 | EXP.PN ---
Subjective *Date: 12/27/24 *Time: 17:41 Interval history: Pili Kyle is a 24yo PPD#2 from a FAVD at 36w5d gestation. Delivery and course were complicated by a primary PPH. THis morning she is resting comfortably in bed. is doing well, per nursing being followed for hypoglycemia -Reports pain is well-controlled -Reports she is tolerating p.o. without nausea or vomiting. -Reports her lochia is scant. -Undecided contraception, considering vasectomy -She is breast-feeding her female infant -Ambulating, voiding difficulty or dysuria. Denies chest pain shortness of breath or pain in her legs. No further complaints at this time. Exam Data for Last 24 hours Vital signs and Labs for Last 24 Hours: Temp Pulse Resp BP Pulse Ox O2 Del Method 98.7 F 64 18 126/78 99 Room Air 12/27/24 15:21 12/27/24 15:21 12/27/24 15:21 12/27/24 15:21 12/27/24 15:21 12/27/24 15:21 Laboratory Results - last 24 hr 12/27/24 05:56: WBC 10.2 D, RBC 3.82 L, Hgb 11.3 L D, Hct 34.5 L, MCV 90.3, MCH 29.3, MCHC 32.5, RDW 15.5, Plt Count 120 L, MPV 12.6 H, Neut % (Auto) 63.6, Lymph % (Auto) 28.7, [place] % (Auto) 5.0, Eos % (Auto) 1.4, Baso % (Auto) 0.4, Neut # (Auto) 6.5, Lymph # (Auto) 2.9, [place] # (Auto) 0.5, Eos # (Auto) 0.1, Baso # (Auto) 0.0 12/27/24 09:00: Sodium 136, Potassium 4.1, Chloride 107, Carbon Dioxide 26, Anion Gap 7.1, BUN 5 L, Creatinine 0.60, Estimated Creat Clear 112, Estimated GFR 121, Est GFR ( Amer) 146, Glucose 65 L, Calcium 8.4, Total Bilirubin 0.3, AST 26, ALT 11 L, Alkaline Phosphatase 115, Lactate Dehydrogenase 314, Total Protein 5.2 L, Albumin 2.9 L, Globulin 2.3, Albumin/Globulin Ratio 1.3 I & O for Last 24 hours: Intake & Output 12/24/24 12/25/24 12/26/24 12/27/24 23:59 23:59 23:59 23:59 Intake Total 5082.5 / 5082.5 1000 / 1000 Output Total 1450 / 1450 600 / 600 1900 / 1900 Balance 3632.5 / 3632.5 -600 / -600 -900 / -900 Narrative: General: patient is alert oriented in no acute distress and responds appropriately to questions. Appears to be in minimal pain. HEENT: NCAT, EOMI, moist mucous membranes, neck supple with full ROM Cardiovascular: RRR +S1/S2, no murmurs or rubs Pulmonary: Clear to auscultation bilaterally, nonlabored breathing, symmetric chest rise Abdominal: Fundus at the umbilicus, firm, and tenderness appropriate for the period. Extremities: trace edema, no tenderness or cyanosis noted Skin: Normal turgor, intact, warm. Negative for erythema, pallor, petechia, or lesions. Mottling was present yesterday and has resloved thism orning Neurologic: Negative for sensory or motor deficit Psychiatric: Normal affect, normal thought process, good judgment and insight, no depression or anxious mood appreciated. Assessment and Plan *Assessment and plan (1) History of stillbirth: Status: Acute Category: Medical Code(s): Z87.59 - Personal history of other complications of , childbirth and the puerperium (2) Maternal obesity affecting , antepartum: Status: Acute Qualifiers: Obesity type affecting : unspecified obesity Qualified Code(s): O99.210 - Obesity complicating , unspecified trimester Category: Medical Code(s): O99.210 - Obesity complicating , unspecified trimester (3) Gestational diabetes: Status: Acute Qualifiers: Gestational diabetes mellitus control: insulin-controlled Trimester: third trimester Qualified Code(s): O24.414 - Gestational diabetes mellitus in , insulin controlled Category: Medical Code(s): O24.419 - Gestational diabetes mellitus in , unspecified control (4) : Status: Acute Qualifiers: Weeks of gestation: less than 8 weeks Qualified Code(s): Z3A.01 - Less than 8 weeks gestation of Category: Medical Code(s): Z34.90 - Encounter for supervision of normal , unspecified, unspecified trimester (5) Large for gestational age fetus affecting management of mother, antepartum: Status: Acute Qualifiers: Fetus number: single or unspecified fetus Qualified Code(s): O36.60X0 - Maternal care for excessive growth, unspecified trimester, not applicable or unspecified Category: Medical Code(s): O36.60X0 - Maternal care for excessive growth, unspecified trimester, not applicable or unspecified (6) Forceps delivery with baby delivered: Status: Acute Category: Medical Code(s): O75.9 - Complication of labor and delivery, unspecified (7) Forceps or vacuum extractor delivery: Status: Acute Category: Medical Code(s): Z37.9 - Outcome of delivery, unspecified Plan #36w5d #FAVD #PPH Stable. PPD#2 s/p VAVD -Doing well. VSS. Serial lochia and fundal checks. -Continue with perineal ice packs for discomfort -Hemoglobin: 12.3--> 13.4-->10.1-->11.3. Patient received 1 unit of packed red blood cells during her hemorrhage yesterday. PPH was also treated with at 1000 mcg of rectal Cytotec, 1 g of TXA, IV high-dose Pitocin, 1 dose of IM Methergine -A+/antibody negative -, female infant -Contraception: undecided -Follow-up 2 weeks for routine visit -Dispo: home in 1-3 days pending mother/infant status #GDM -DC accuchecks -at 6wk pp ordered 2hr GTT with 75g glucose - Discussed with patient and she will get hemoglobin A1c's periodically throughout her life span with her PCP #Thrombocytopenia -Likely gestational thrombocytopenia but out of extreme precaution we will repeat CBC this evening - Platelets this morning are 120 and have normalized we will discontinue CBCs and checks
[2024-12-27] MEDS: DESVENLAFAXINE 100 MG 1 EACH PO (20:15)
[2024-12-28] MEDS: ACETAMINOPHEN 500MG TAB 1000 MG PO ×2 (02:36→08:54)
[2024-12-28] MEDS: IBUPROFEN 400 MG TABLET 800 MG PO (02:36)
--- NOTE | 2024-12-28 10:08 | EXP.DC.SUM ---
General Admission date:: 12/20/24 Discharge date: 12/28/24 HPI HPI HPI: Pili Kyle is a pleasant 24yo who presented to L&D with regular painful contractions every 2-3 minutes. She reported some decreased movement and changes in movement. She was admitted and observed. Regular uterine contractions continued. The patient has very high and intrapartum anxiety. In August 2023 just over a year ago she presented to labor and delivery with decreased movement and 2 days later when she returned for her induction of labor she had a stillbirth. The patient reports that prior to her stillbirth she had these regular and irregular contractions similar to what she is experiencing now. She also was having pitting edema in her abdomen which she has again with this . She has a planned delivery for next week at 37 weeks gestation. This has also been complicated by gestational diabetes and maternal obesity. Hospital Course Hospital Course Hospital Course: Pili Dubois is a 24-year-old -0-0-2 day #3 from a forceps assisted vaginal delivery. She delivered a live viable female on 12/25/2024 at 1141. Infant weighed 7 pounds 12 ounces at 36+ weeks gestation. Apgars were 6 and 9 at 1 and 5 minutes respectively She has done well and has remained afebrile with her at her hospitalization. She is eating and drinking and ambulating. She is breast feeding. Her lochia is normal. She has Rh+ blood, she is rubella immune and was group B streptococcus positive. She will be discharged home to follow-up with Dr. Gilbert in 2 weeks time. She will continue with her vitamins and iron. She will take ibuprofen as well. She was given the usual instructions with respect to limiting her activity, driving and sexual activity. She was given instructions with respect to wound care. Her condition on discharge is stable and improved. Exam Data for Last 24 hours Vital signs and Labs for Last 24 Hours: Temp Pulse Resp BP Pulse Ox O2 Del Method 98.7 F 64 18 126/78 99 Room Air 12/27/24 15:21 12/27/24 15:21 12/27/24 15:21 12/27/24 15:21 12/27/24 15:21 12/27/24 15:21 Laboratory Results - last 24 hr 12/24/24 18:07: Crossmatch ([facility]) See Detail I & O for Last 24 hours: Intake & Output 12/25/24 12/26/24 12/27/24 12/28/24 23:59 23:59 23:59 23:59 Intake Total 5082.5 / 5082.5 1000 / 1000 Output Total 1450 / 1450 600 / 600 1900 / 1900 Balance 3632.5 / 3632.5 -600 / -600 -900 / -900 Narrative: General: patient is alert oriented in no acute distress and responds appropriately to questions. Appears to be in minimal pain. HEENT: NCAT, EOMI, moist mucous membranes, neck supple with full ROM Cardiovascular: RRR +S1/S2, no murmurs or rubs Pulmonary: Clear to auscultation bilaterally, nonlabored breathing, symmetric chest rise Abdominal: Fundus below the umbilicus, firm, and tenderness appropriate for the period. Extremities: trace edema, no tenderness or cyanosis noted Skin: Normal turgor, intact, warm. Negative for erythema, pallor, petechia, or lesions. Mottling was present yesterday and has resloved thism orning Neurologic: Negative for sensory or motor deficit Psychiatric: Normal affect, normal thought process, good judgment and insight, no depression or anxious mood appreciated. Results Data Completed and Pending Labs on day of discharge: Labs from last 24 hours 12/24/24 18:07 Crossmatch ([facility]) See Detail DS: Diagnosis Discharge Diagnosis (1) History of stillbirth: Status: Acute Code(s): Z87.59 - Personal history of other complications of , childbirth and the puerperium (2) Maternal obesity affecting , antepartum: Status: Acute Code(s): O99.210 - Obesity complicating , unspecified trimester Qualifiers: Obesity type affecting : unspecified obesity Qualified Code(s): O99.210 - Obesity complicating , unspecified trimester (3) Gestational diabetes: Status: Acute Code(s): O24.419 - Gestational diabetes mellitus in , unspecified control Qualifiers: Gestational diabetes mellitus control: insulin-controlled Trimester: third trimester Qualified Code(s): O24.414 - Gestational diabetes mellitus in , insulin controlled (4) : Status: Acute Code(s): Z34.90 - Encounter for supervision of normal , unspecified, unspecified trimester Qualifiers: Weeks of gestation: less than 8 weeks Qualified Code(s): Z3A.01 - Less than 8 weeks gestation of (5) Large for gestational age fetus affecting management of mother, antepartum: Status: Acute Code(s): O36.60X0 - Maternal care for excessive growth, unspecified trimester, not applicable or unspecified Qualifiers: Fetus number: single or unspecified fetus Qualified Code(s): O36.60X0 - Maternal care for excessive growth, unspecified trimester, not applicable or unspecified (6) Forceps delivery with baby delivered: Status: Acute Code(s): O75.9 - Complication of labor and delivery, unspecified (7) Forceps or vacuum extractor delivery: Status: Acute Code(s): Z37.9 - Outcome of delivery, unspecified Meds Home Medications and Allergies Home Medications ?Medication ?Instructions ?Recorded ?Confirmed ?Type desvenlafaxine succinate 100 mg 100 mg PO DAILY 04/05/24 12/20/24 History tablet,extended release 24 hr vits no.126-ferrous fum 1 tab PO DAILY 05/25/24 12/20/24 History 28 mg iron-folic acid 800 mcg tablet (Classic ) acetaminophen 500 mg tablet 500 mg PO Q6H PRN fever or pain 12/28/24 Rx #30 tabs ferrous sulfate 325 mg (65 mg 325 mg PO DAILY #30 tabs 12/28/24 Rx iron) tablet,delayed release ibuprofen 800 mg tablet 800 mg PO Q8H PRN pain #60 tabs 12/28/24 Rx sennosides 8.6 mg tablet (Senna 8.6 mg PO BIDP PRN Constipation 12/28/24 Rx Lax) #60 tabs New Prescriptions to Start Prescriptions: acetaminophen Vladimir,Iram ferrous sulfate Vladimir,Iram ibuprofen Vladimir,Iram sennosides [Senna Lax] Iram Gilbert Allergies Allergy/AdvReac Type Severity Reaction Status Date / Time amitriptyline (From Elavil) Allergy Severe Seizure Verified 12/25/24 04:30 raspberry Allergy Severe Anaphylaxis Verified 12/25/24 04:30 Penicillins Allergy Rash Verified 12/25/24 04:30 Discharge Plan Disposition Patient Disposition: Home, Self-Care Condition: Good Discharge Order Discharge Orders: Discharge Order (Routine); Ordered 12/28/24 Ordered By: Iram Gilbert Follow up Plan Follow up with: Iram Gilbert DO [Staff Physician, GUITAR REPAIR TECHNICIAN] - 01/10/25 3:30 pm Prescriptions/Medication Reconciliation: New acetaminophen 500 mg tablet 500 mg PO Q6H PRN (Reason: fever or pain) Qty: 30 3RF ferrous sulfate 325 mg (65 mg iron) tablet,delayed release (DR/EC) 325 mg PO DAILY Qty: 30 3RF sennosides [Senna Lax] 8.6 mg Tablet 8.6 mg PO BIDP PRN (Reason: Constipation) Qty: 60 2RF ibuprofen 800 mg tablet 800 mg PO Q8H PRN (Reason: pain) Qty: 60 2RF Continued desvenlafaxine succinate 100 mg tablet extended release 24 hr 100 mg PO DAILY Patient Comments: TAKE 1 TABLET BY MOUTH DAILY. Classic 28 mg iron- 800 mcg tablet 1 tab PO DAILY Discontinued aspirin 81 mg tablet 81 mg PO DAILY (DME) blood-glucose meter [Accu-Chek Guide Me Glucose Mtr] Misc See Rx Instructions .ROUTE .MEDSUPPLY Qty: 1 Rx Instructions: As directed (DME) Accu-Chek Guide test strips Strip See Rx Instructions .ROUTE .MEDSUPPLY Qty: 10 Patient Comments: USE INSTRUCTED. FASTING, 2 HOURS POSTPRANDIAL. Rx Instructions: As directed insulin glargine [Lantus Solostar U-100 Insulin] 100 unit/mL (3 mL) insulin pen 5 unit SQ HS Qty: 15 2RF Rx Instructions: inject 5 units nightly (DME) pen needle, diabetic 31 gauge x 1/4 needle See Rx Instructions .Route Qty: 100 0RF Rx Instructions: As directed insulin lispro [Admelog SoloStar U-100 Insulin] 100 unit/mL insulin pen 5 unit SQ QACDINNER Qty: 3 0RF Rx Instructions: inject 5 units with dinner Problem Reconciliation Problems Reviewed?: Yes Patient Discharge Instructions ACTIVITY: Continue current activity DIET: regular diet Additional Instructions: Congratulations on the delivery of your sweet baby girl. It is my privilege to be your doctor and I am so thankful I could be a part of your special day. Discharge: -Take 800 mg Ibuprofen every 8 hours as needed for pain. You can also take 500-1000 mg of Tylenol in between doses, every 6-8 hours. -Colace can be taken 1-2 times per day as you need to soften your stool. Make sure to drink at least 8 cups of water per day. -Iron supplements can make you constipated. You can take iron tablets every other day if constipation is too bad. -Nothing in the vagina for 6 weeks - no intercourse, douching, tampons. No tub baths or swimming pools. -Do not lift greater than 20pounds for 2 weeks, this is the equivalent of 2 gallons of milk. -Reasons to return to L&D or call On-Call doctor - fever (greater than 100.4) - heavy vaginal bleeding (soaking through 1 pad in less than 2 hours or passing clots that are egg sized) - vaginal discharge (malodorous and/or purulent) - severe headaches, leg tenderness/edema, or any other symptoms that warrant immediate medical attention. depression/blues - Normal to feel anxious/overwhelmed for first 2 weeks - Talk to your doctor if: anxiety lasts over 2 weeks, trouble bonding with baby, withdrawing from other family members, thoughts of harming yourself or others Blood pressure and preeclampsia instructions -Please call if greater than 2 values are higher than: 150 systolic (the top number) or 100 diastolic (the bottom number). -Please go to the emergency room or labor and delivery triage if any value is higher than: 160 systolic (the top number) or 110 diastolic (the bottom number). -Please call if unrelenting headache (does not go away with rest or Tylenol or ibuprofen), changes in vision (spots, floaters, flashes of light), chest pain, shortness of breath, or right upper quadrant (liver) abdominal pain. Iram Gilbert DO [facility] [phone] *Nothing in the Vagina for 6 weeks* *No strenuous activity* *No heavy lifting* *No tub baths until okay's by MD* Patient Instructions: Depression, Labor and Delivery, Vaginal , Hemorrhage, DI for Pre-eclampsia, [facility] Post Discharge Instructions Print Language: Japanese Providers Primary Care Provider: Loan Vick Admit Provider: Iram Gilbert Attending Provider: Iram Gilbert
== END 2024-12-28 11:40 | disposition home or self-care (01) | DRG 768 ==
LOC: OB 14:59
PROVIDERS: Nurse Practitioner Obstetrics & Gynecology; Admitting Provider Obstetrics & Gynecology; PCP Family Medicine; Visit Provider Obstetrics & Gynecology
DX: O60.14X0 Preterm labor third trimester with preterm delivery third trimester, not applicable or unspecified (principal); Z37.0 Single live birth; O72.1 Other immediate postpartum hemorrhage; O99.13 Other diseases of the blood and blood-forming organs and certain disorders involving the immune mechanism complicating the puerperium; Z3A.36 36 weeks gestation of pregnancy; O99.214 Obesity complicating childbirth; O24.424 Gestational diabetes mellitus in childbirth, insulin controlled; O99.344 Other mental disorders complicating childbirth; O36.63X0 Maternal care for excessive fetal growth, third trimester, not applicable or unspecified; F41.9 Anxiety disorder, unspecified; O36.8130 Decreased fetal movements, third trimester, not applicable or unspecified; O99.824 Streptococcus B carrier state complicating childbirth; D69.6 Thrombocytopenia, unspecified; O76 Abnormality in fetal heart rate and rhythm complicating labor and delivery; Z87.59 Personal history of other complications of pregnancy, childbirth and the puerperium; Z88.0 Allergy status to penicillin; Z88.8 Allergy status to other drugs, medicaments and biological substances; Z91.018 Allergy to other foods; Z79.82 Long term (current) use of aspirin; Z23 Encounter for immunization
CPT/HCPCS: 36415; 36430; 59025; 76816; 76819; 80053; 81001; 82800; 82962; 83615; 85014; 85018; 85025; 85049; 85384; 85610; 85730; 86592; 86850; 87086; 94761; 99212; C1758; G0463; J0736; J1364; J1580; J2003; J2210; J2795; J3010; J7050; J7120; J7121; P9016; Q0162

== ENCOUNTER 2025-02-07 16:21 | Outpatient (CLI) | payer BC, SELFPAY ==
--- OUTSIDE RECORDS SUMMARY | 2025-02-07 16:22 | XMS_ITS | Clinical Summary ---
Author Organization [facility] Address [address] [address] Phone Care Team Providers Care Medical Device Sales Representative Name Role Phone Unavailable Unavailable Conditions or Problems No information available. Medications No information available. Medications Administered No information available. Allergies, Adverse Reactions, Alerts No information available. Results No information available. Plan of Care No information available. Procedures Code Procedure Name Date Entry Date CPT-10910 COVID-19 Moderna CPT-0012A IZ administration - COVID-19 - Moderna 2n d dose CPT-61622 COVID-19 Moderna CPT-01849 IZ administration - injection - single 20 [...]
--- OUTSIDE RECORDS SUMMARY | 2025-02-07 16:23 | XMS_ITS | Encounter Summary ---
Author Organization [facility] Address [address] [place] [address] Care Team Providers Care Epic Ambulatory Analyst Name Role Phone Loan Vick MD Primary Care Provider [phone]- [phone] Reason for Visit * Reason Onset Date Comments Advice Only 12/26/2024 Encounter Details Date Type Department Care Team (Late st Contact Info) Description 12/26/[address] [facility]NAL MEDICINE [address] [facility] [address] [place] [address] Isabel Aldrich, unit support representative Only Social History Tobacco Use Types Packs/Day Years [...] on file documented as of this encounter Miscellaneous Notes * Telephone Encounter - Isabel Aldrich RN - 12/26/2024 12:16 PM EDT Spoke with patient over the phone. Patient states she delivered yesterday and everthing went well. Patient is off all insulin. Informed patient Dr. Hamlin recommends a 2 hour glucose test during her 6 week period and that her primary OB could order that. Wished her congratulations. Isabel Aldrich RN documented in this encounter Plan of Treatment Not on file documented as of this encounter Visit Diagnoses Not on filedocumented in this encounter Care Teams Epic Ambulatory Analyst Relationship Specialty Start Date End Date Loan Vick MD [address] [place] [address] PCP - General Family Medicine 08/23/24 documented as of this encounter
--- OUTSIDE RECORDS SUMMARY | 2025-02-07 16:23 | XMS_ITS | Clinical Summary ---
Author Organization [facility] Address [address] [place] [address] Care Team Providers Care Senior Accounting Specialist Name Role Phone Loan Vick MD Primary Care Provider +1- [phone] Allergies Active Allergy Reactions Criticality Noted Date [...] CHECK BLOOD SUGAR. CHANGE EVERY 10 DAYS Active Lantus SoloStar 100 UNIT/ML injection pen Inject 5 Units under the skin into the appropriate area as directed Every Night. Active Embecta Pen Needle Nia 2 Gen 32G X 4 MM misc USE WITH LANTUS ONCE DAILY Active Accu-Chek Softclix Lancets lancets USE INSTRUCTED. FASTING, 2 HOURS POSTPRANDIAL. Active cephalexin (KEFLEX) 500 MG capsule Take 1 capsule by mouth Every 12 (Twelve) Hours. Active Blood Glucose Monitoring Suppl (Accu-Chek Guide Me) w/Device kit Active Active Problems Problem Noted Date Diagnosed [...] to take to her appointment with primary BIOFUELS PLANT CONSTRUCTION WORKER next week. Patient reports history of decreased movement for the past day or so though has felt some movement. movement noted on ultrasound today. We discussed careful return precautions regarding decreased movement and to report to primary BIOFUELS PLANT CONSTRUCTION WORKER if decreased movement has occurred. Assessment & Plan (08/25/2024 8:31 PM EDT): Patient previously seen by M for preconception consultation (see note by Dr [...] Encounters Date Type Department Care Team Description 12/26/2024 Telephone [facility] MATERNAL MEDICINE [address] [facility] [address] [address] [place] [address] Isbael Aldrich RN Advice Only 11/28/2024 2:45 PM EDT Office Visit [facility]NAL MED[facility]INE [address] [facility] [address] [place] [address] Deven Chinchilla MD History of IUFD (Primary Dx); Insulin controlled gestational diabetes mellitus (GDM) in third trimester 11/28/2024 1:50 PM EDT - 11/28/2024 11:59 PM EDT Hospital Encounter [facility] [address] [place] [address] Harini Gilbert, Discharge Disposition: Home or Self Care 11/28/2024 Travel 11/26/2024 Medication Therapy Management [facility] [address] [facility] [address] [address] [place] [address] Deven Chinchilla MD 11/23/2024 Refill [facility] [address] [facility] [address] [place] [address] Deven Chinchilla MD from Last 3 Months Social History Tobacco [...] PAP SMEAR 05/12/2023 05/12/2020 ANNUAL PHYSICAL 11/09/2023 INFLUENZA VACCINE 11/16/2024 04/08/2023, , 03/06/2019, Additional history exists TDAP/TD VACCINES (4 - Td or Tdap) 06/20/2033 06/21/2023, 09/04/2021, 12/09/2009 HEPATITIS C SCREENING Completed 01/27/2024 RSV Vaccine - Adults (No Dos es Required) Completed Procedures Procedure Name Priority Date/Time Associated Diagnosis Comments [facility] Routine 11/28/2024 2:55 PM EDT History of IUFD from Last 3 Months Results * [facility] (11/28/2024 2:55 PM EDT) Anatomical Region Laterality Modality Ultrasound 11/28/2024 2:31 PM EDT Narrative 11/28/2024 3:06 PM EDT PAT NAME: SANDEEP BRITO MED REC#: [id number] DA: [id number] PAT GEND: F PAT TYPE: O EXAM TED: [id number] REF PHYS HARINI GILBERT Comparison Studies The [...] EFW (oz) 15 oz EFW by: Hadlock ([id number]) Extended Cav. septi pel. tr 5.7 mm Relations Manager 6.3 mm CM 5.7 mm 10% [...] 4 weeks before IOL. Coding ======= Description: 51061-99 Follow Up Ultrasound Description: 49197-05 BPP without NST Potato Sorter: Kristine Camp RDMS Physician: Deven Chinchilla MD, FACOG Electronically signed by: Deven Chinchilla MD, FACOG at: 15:06 Procedure Note Deven Chinchilla MD - 11/28/2024 PAT NAME: SANDEEP BRITO MED REC#: [id number] DA: [id number] PAT GEND: F PAT TYPE: O EXAM TED: [id number] REF PHYS MELIDAHARINI Comparison Studies The findings of this study are compared to the prior ultrasound studydated 10/25/24 Patient Status Outpatient Indication ======== Gestational diabetes. 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 Previous child with cerebral palsy.Hx seizures. Morbid obesity BMI 43. Maternal Assessment Hhauyy024 cm Height (ft)5 ft Height (in)1 in Kzyqwq241 kg Weight (lb)223 lb BMI42.65 kg/m Method ======= Transabdominal ultrasound examination. View: Adequate view ========= Cummins . Number of fetuses: 1 Dating ====== Method of dating:based on stated ROHINI GA by prior [id number] w + 6 d ROHINI by prior assessment:01/17/2025 Ultrasound examination on:11/28/2024 GA by U/S based upon:AC, BPD, Femur, HC GA by U/S35 w + 3 d ROHINI by U/S:12/30/2024 Previous dating:based on stated ROHNII, selected on 10/25/2024 Agreed ROHINI of previous datin01/17/2025 Assigned:based on stated ROHINI, selected on 11/28/2024 Assigned GA32 w + 6 d Assigned ROHINI:01/17/2025 [id number] d Biometry Standard BPD88.3 mm 35w 5d 98% Hadlock OFC370.5 mm 38w 2d >99% Sindy HC322.8 mm 36w 3d 94% Hadlock Cerebellum tr43.7 mm 34w 0d 65% Hill AC322.9 mm 36w 1d >99% Hadlock Femur64.7 mm 33w 3d 53% Hadlock Kqaibvb96.8 mm 32w 3d 49% Sindy HC / AC1.00 EFW2,683 g 35w 3d 97% Hadlock EFW (lb)5 lb EFW (oz)15 oz EFW by:Hadlock ([id number]) Extended Cav. septi pel. tr5.7 mm Vp6.3 mm CM5.7 mm 10% Nicolaides Head / Face / Neck Cephalic index0.78 33% Nicolaides Extremities / Bony Struc FL / BPD0.73 FL / HC0.20 FL / AC0.20 Other Structures KBV071 bpm General Evaluation Cardiac activity present. FHR [...] in 4 weeks before IOL. Coding ======= Description:52628-77 Follow Up Ultrasound Description:11874-16 BPP without NST Potato Sorter: Kristine Camp RDNC Physician: Deven Chinchilla MD, FACOG Electronically signed by: Deven Chinchilla MD, FACOG at: 15:06 us Deven Chinchilla MD IMG ORDERABLES Final Result from Last 3 Months Insurance [employer] Member Subscriber Plan / Payer (Ef fective 2023-Present) Name:Sandeep Brito Relation to Subscriber:Self Name:Sandeep Brito Payer ID:[id number] (NAIC) Type:Not on file Address: [facility] [id number] [place] [id number] Care Teams Senior Accounting Specialist Relationship Specialty Start Date End Date Loan Vick MD [address] [place] [address] PCP - General Family Medicine 08/23/24
--- OUTSIDE RECORDS SUMMARY | 2025-02-07 16:23 | XMS_ITS | Encounter Summary ---
Author Organization [facility] Address [address] [place] [id number] Care Team Providers Care Computed Tomography Technologist Name Role Phone Loan Vick MD Primary Care Provider +1- [phone] Reason for Visit * Reason Comments Med Refill Encounter Details Date Type Department Care Team (Late st Contact Info) Description 11/23/[address] [facility]ERNAL MEDICINE [address] [facility] [address] [place] [address] Deven Chinchilla MD [address] [facility] [address] [place] [address] Social History Tobacco Use Types Packs/Day Years [...] on filedocumented in this encounter Care Teams Computed Tomography Technologist Relationship Specialty Start Date End Date Loan Vick MD [address] [place] [address] PCP - General Family Medicine 08/23/24 documented as of this encounter
== END 2025-02-07 23:59 | disposition home or self-care (01) ==
LOC: LAB 16:22
PROVIDERS: PCP Family Medicine; Visit Provider Obstetrics & Gynecology
DX: Z34.91 Encounter for supervision of normal pregnancy, unspecified, first trimester (principal); Z3A.00 Weeks of gestation of pregnancy not specified
CPT/HCPCS: 36415; 84702